=== PATIENT | male | born 1950 | race Caucasian/White ===

== ENCOUNTER → 2016-06-12 | Outpatient (CLI) | payer MEDICARE ==
[2016-06-12 15:07] LABS: ALT 28 U/L (21-72); AST 23 U/L (17-59); Blood Urea Nitrogen 19 mg/dL (9-20); Glucose 299 mg/dL (74-99); Non-African American GFR(MDRD) >60 (>60 ml/min/1.73 sqM)
[2016-06-12 16:13] LABS: Vitamin B12 330 pg/mL (239-931)
[2016-06-12 21:05] LABS: Hemoglobin A1C 11.2 % (4.2-6.1)
== END | disposition home or self-care (01) ==
LOC: LABWHC1 14:33
PROVIDERS: ATTEND Psychiatry & Neurology Neurology
DX: G93.41 Metabolic encephalopathy (principal); E11.9 Type 2 diabetes mellitus without complications
CPT/HCPCS: 36415; 82565; 82607; 82746; 82947; 83036; 84450; 84460; 84520

== ENCOUNTER → 2017-12-05 | Outpatient (CLI) | payer MEDICARE ==
[2017-12-05 15:11] LABS: HCT 42.3 % (39.0-53.0); MCH 27.4 pg (25.0-35.0); MCV 82.8 fL (80.0-100.0); Mean Platelet Volume 7.9; Platelet Count 169 k/uL (150-450); RDW 13.7 % (11.5-15.5); WBC 9.7 k/uL (3.8-10.6)
[2017-12-05 15:27] LABS: Potassium 4.4 mmol/L (3.5-5.1)
== END | disposition home or self-care (01) ==
LOC: LABPAT 14:45
PROVIDERS: ATTEND Internal Medicine Interventional Cardiology
DX: Z01.812 Encounter for preprocedural laboratory examination (principal); E78.1 Pure hyperglyceridemia; I10 Essential (primary) hypertension; I25.10 Atherosclerotic heart disease of native coronary artery without angina pectoris
CPT/HCPCS: 80051; 82565; 84520; 85027

== ENCOUNTER 2017-12-10 07:30 | Day surgery (SDC) | payer MEDICARE ==
[2017-12-10 07:05] VITALS: RESP 18
[~2017-12-10 07:30] MED LIST: ALPRAZolam 0.25 MG TAB PO PRN; ALPRAZolam 0.5 MG TAB PO PRN; ASPIRIN 325 MG TAB PO STA; ATORVASTATIN 80 MG TAB PO ONE; MIDAZOLAM 2 MG/2 ML VIAL ONE; NITROGLYCERIN SL TABS 0.4 MG TAB SUBLINGUAL PRN; SODIUM CHLORIDE 0.9% 1,000 ML in EMPTY BAG 1 BAG IV ONE
[2017-12-10] MEDS ORDERED: LIDOCAINE 1% INJ 10MG/ML (20 ML MDV) SQ ONE (07:42)
[2017-12-10] MEDS ORDERED: MIDAZOLAM 2 MG/2 ML VIAL IVP ONE (07:42)
[2017-12-10] MEDS ORDERED: BIVALIRUDIN BOLUS 250 MG/50 ML IV ONE (07:49)
[2017-12-10] MEDS ORDERED: BIVALIRUDIN 250 MG in SODIUM CHLORIDE 0.9% 50 ML IV ONE ×2 (07:49→08:17)
[2017-12-10] MEDS: NITROGLYCERIN 1000MCG/10ML SYRINGE INTRACORON ONE ×2 (07:50→08:22)
[2017-12-10] MEDS ORDERED: CLOPIDOGREL 75 MG TAB ONE (08:25)
[2017-12-10] MEDS ORDERED: traMADol 50 MG TAB PO PRN (08:29)
[2017-12-10] MEDS ORDERED: MAG HYDROX/AL HYDROX/SIMETH 30 ML CUP PO PRN (08:30)
[2017-12-10] MEDS ORDERED: NITROGLYCERIN SL TABS 0.4 MG TAB SUBLINGUAL PRN (08:30)
[2017-12-10] MEDS ORDERED: ATROPINE SULFATE 0.1 MG/ML 10ML SYRINGE IV PRN (08:30)
[2017-12-10] MEDS ORDERED: RX INFO: IV CONTRAST WAS GIVEN 1 EACH MISC MISCELLANE PRN (08:30)
[2017-12-10] MEDS ORDERED: ZOLPIDEM 5 MG TAB PO PRN (08:30)
[2017-12-10] MEDS ORDERED: SODIUM CHLORIDE 0.9% 1,000 ML IV SCH (08:30)
[2017-12-10] MEDS ORDERED: IOPAMIDOL-370 125ML BTL INJ ONE (08:31)
[2017-12-10] MEDS ORDERED: CLOPIDOGREL 75 MG TAB PO ONE (08:33)
[2017-12-10] MEDS ORDERED: ASPIRIN 325 MG TAB PO SCH (09:00)
[2017-12-10] MEDS ORDERED: ATENOLOL PO SCH (09:00)
[2017-12-10 09:33] LABS: Glucose,Whole Blood 169 mg/dL (75-99)
[2017-12-10] MEDS: PANTOPRAZOLE 40 MG TABLET PO PRN (09:36)
--- NOTE | 2017-12-10 09:40 | LTR ---
December 10, 2017 Re: Dane Shah Dear Dr. Rodriguez: Mr. Dane Shah underwent successful stenting of distal, mid and proximal RCA with good angiographic results and without any complication. I want to thank you for allowing me to participate in his care and please do not hesitate to call if you have any question or concern. Sincerely, MD ALLYN Duarte / JAYY: [phone] /
--- NOTE | 2017-12-10 10:04 | PTCA ---
PERCUTANEOUSTRANS CORORONARY ANGIOGRAPHY DATE OF SERVICE: December 10, 2017 PERFORMING PHYSICIAN: Obinna Eng MD, lever miller. PROCEDURE PERFORMED: 1. Successful stenting of the distal RCA using 2.75 x 15 mm Xience RENO with good angiographic results. 2. Successful stenting of the mid RCA using 2.75 x 18 mm Xience RENO with good angiographic results. 3. Successful stenting of the proximal RCA using 3.0 x 15 mm Xience RENO with good angiographic results. INDICATION: This is a pleasant 67-year-old gentleman with diabetes, hypertension, dyslipidemia, who was experiencing chest discomfort and underwent a heart catheterization few weeks ago and that showed severe disease involving the distal, mid, and proximal RCA. Maximized medical treatment was advised and the patient continues to have chest discomfort and in view of that, percutaneous coronary intervention was advised. APPROACH: Right common femoral artery. COMPLICATION: None. LEVEL OF SEDATION: Moderate sedation length of stay 46 minutes. PROCEDURE DESCRIPTION: After obtaining an informed consent, the patient was brought to cardiac computer lab assistant. The right common femoral artery was cannulated using micropuncture technique and the micropuncture wire passed easily then I placed a 6-Andorran sheath in the right common femoral artery. After that, Angiomax was initiated. After that I did engage the RCA using an NR guide. A Whisper wire was used to wire the right coronary artery. Then I did another under taina wire which was BMW wire. I did balloon angioplasty using 2.5 mm balloon for that distal, and proximal RCA before I deployed distally 2.75 x 15 mm Xience RENO where the stent was positioned under fluoroscopy guidance and deployed after I pulled the taina wire out. For the mid RCA, I did stent using 2.75 x 18 mm Xience RENO where the stent again was positioned under fluoroscopy guidance and deployed under its nominal pressure. Proximally, I deployed 3.0 x 15 mm Xience RENO as well. The last stent was also positioned under fluoroscopic guidance and deployed under 12 atmospheres for 20 seconds. The following angiogram showed good angiographic results and the procedure was completed without any complication. POSTPROCEDURE MANAGEMENT: 1. Maximize medical treatment. 2. Follow up with the patient. MMODL / IJN: [id number] /
[2017-12-10] MEDS: amLODIPine 10 MG TAB PO SCH (11:42)
[2017-12-10] MEDS: CYCLOBENZAPRINE 10 MG TAB PO SCH ×3 (11:43→21:46)
[2017-12-10 12:00] LABS: Glucose,Whole Blood 195 mg/dL (75-99)
[2017-12-10] MEDS: INSULIN ASPART 100 UNIT/ML 1 ML 10 ML VIAL SQ SCH (14:56)
[2017-12-10 15:36] VITALS: BMI 37.0
[2017-12-10 16:35] LABS: Glucose,Whole Blood 193 mg/dL (75-99)
[2017-12-10] MEDS ORDERED: INSULIN ASPART 100 UNIT/ML 1 ML 10 ML VIAL SQ SCH (17:30)
[2017-12-10 20:55] LABS: Glucose,Whole Blood 177 mg/dL (75-99)
[2017-12-10] MEDS ORDERED: INSULIN DETEMIR 100 UNIT/ML 10 ML VIAL SQ SCH (21:00)
[2017-12-10] MEDS ORDERED: traMADol 50 MG TAB PO STA (21:25)
[2017-12-11 06:23] LABS: Glucose,Whole Blood 127 mg/dL (75-99)
[2017-12-11 07:14] LABS: Basophils % (A) 1 %; Eosinophils # (A) 0.1 k/uL (0-0.7); Eosinophils % (A) 2 %; HCT 39.5 % (39.0-53.0); HGB 13.3 gm/dL (13.0-17.5); Lymphocytes # (A) 1.7 k/uL (1.0-4.8); Lymphocytes % (A) 28 %; MCH 27.6 pg (25.0-35.0); MCHC 33.5 g/dL (31.0-37.0); MCV 82.4 fL (80.0-100.0); Mean Platelet Volume 7.7; Monocytes # (A) 0.5 k/uL (0-1.0); Monocytes % (A) 9 %; Neutrophils # (A) 3.6 k/uL (1.3-7.7); Neutrophils % (A) 58 %; Platelet Count 112 k/uL (150-450); RDW 13.6 % (11.5-15.5); WBC 6.2 k/uL (3.8-10.6)
[2017-12-11] MEDS ORDERED: INSULIN ASPART 100 UNIT/ML 1 ML 10 ML VIAL SQ SCH (07:30)
[2017-12-11 07:33] LABS: Calcium 8.7 mg/dL (8.4-10.2); Potassium 3.8 mmol/L (3.5-5.1)
[2017-12-11] MEDS: amLODIPine 10 MG TAB PO SCH (07:55)
[2017-12-11] MEDS: CYCLOBENZAPRINE 10 MG TAB PO SCH (07:56)
[2017-12-11] MEDS: PANTOPRAZOLE 40 MG TABLET PO PRN (07:57)
[2017-12-11] MEDS ORDERED: ASPIRIN 325 MG TAB PO SCH (09:00)
[2017-12-11] MEDS ORDERED: CLOPIDOGREL 75 MG TAB PO SCH (09:00)
[2017-12-11 11:56] LABS: Glucose,Whole Blood 238 mg/dL (75-99)
[2017-12-11] MEDS: INSULIN ASPART 100 UNIT/ML 1 ML 10 ML VIAL SQ SCH (12:14)
[2017-12-11 12:36] VITALS: BP 136/66; PULSE 87; TEMP 98.6
--- NOTE | 2017-12-11 14:46 | DS ---
DISCHARGE SUMMARY ADMISSION DATE: December 10, 2017 DATE OF DISCHARGE: December 11, 2017 BRIEF HISTORY: This is a pleasant 67-year-old gentleman who was admitted to the hospital yesterday and underwent successful stenting of the distal, mid, and proximal RCA with good angiographic results and without any complication. The procedure was performed from the right groin. On follow up with him today, he is doing better. Chest pain free. The right groin is soft and nontender and without any bruises. The patient is going to be discharged home on dual anti-platelet therapy and I will follow up with the patient in a week in the office. MMODL / IJN: [id number] /
[2017-12-11] MEDS ORDERED: ATORVASTATIN 80 MG TAB PO SCH (21:00)
[2017-12-11 21:44] LABS: Hemoglobin A1C 7.7 % (4.0-6.0)
== END 2017-12-11 13:20 | disposition home or self-care (01) ==
LOC: CATHCVL 07:30 → 6SEL 08:35 → CATHCVL 12-11 13:20
PROVIDERS: ATTEND Internal Medicine Interventional Cardiology
DX: I25.10 Atherosclerotic heart disease of native coronary artery without angina pectoris (principal); I10 Essential (primary) hypertension; Z72.0 Tobacco use; E78.5 Hyperlipidemia, unspecified; E11.9 Type 2 diabetes mellitus without complications; Z79.84 Long term (current) use of oral hypoglycemic drugs; K31.9 Disease of stomach and duodenum, unspecified; Q23.1 Congenital insufficiency of aortic valve; Z79.899 Other long term (current) drug therapy; Z88.1 Allergy status to other antibiotic agents
CPT/HCPCS: 80048; 85025; 83036; C9600; C1769 ×4; C1760; C1887 ×2; C1725; C1894; C1874; J2250; J2001; J0583; Q9967

== ENCOUNTER 2017-12-31 06:37 | Day surgery (SDC) | payer MEDICARE ==
[2017-12-28 11:12] VITALS: BMI 36.8
[~2017-12-31 06:37] MED LIST changes: -ALPRAZolam 0.25 MG TAB PO PRN; -ALPRAZolam 0.5 MG TAB PO PRN; -ASPIRIN 325 MG TAB PO STA; -ATORVASTATIN 80 MG TAB PO ONE; +LACTATED RINGERS 1,000 ML IV SCH; +LIDOCAINE 1% 20 ML VIAL (10MG/ML) FOR IV START INTRADERMA PRN; -MIDAZOLAM 2 MG/2 ML VIAL ONE; -NITROGLYCERIN SL TABS 0.4 MG TAB SUBLINGUAL PRN; -SODIUM CHLORIDE 0.9% 1,000 ML in EMPTY BAG 1 BAG IV ONE
[2017-12-31 07:18] VITALS: TEMP 98.6
[2017-12-31 07:19] LABS: Glucose,Whole Blood 113 mg/dL (75-99)
[2017-12-31] MEDS ORDERED: LIDOCAINE 1% INJ 10MG/ML (20 ML MDV) ONE (07:51)
[2017-12-31] MEDS ORDERED: PROPOFOL 10 MG/ML 20 ML VIAL IV ONE (07:51)
[2017-12-31] MEDS ORDERED: fentaNYL (PF) 50 MCG/ML 2 ML AMP ONE (07:51)
--- NOTE | 2017-12-31 07:56 | P.GSHP ---
History of Present Illness H&P Date: 12/31/17 Chief Complaint: GERD 's is a 67-year-old male who presents today for EGD. Patient history of GERD. Past Medical History Past Medical History: COPD, CVA/TIA, Diabetes Mellitus, GERD/Reflux, Hypertension, Osteoarthritis (OA), Sleep Apnea/CPAP/BIPAP Additional Past Medical History / Comment(s): having "stomach problems",has cpap History of Any Multi-Drug Resistant Organisms: None Reported Past Surgical History: Cholecystectomy, Heart Catheterization With Stent, Hernia Repair, Orthopedic Surgery Additional Past Surgical History / Comment(s): heart stents x 3,carpal tunnel, right carotid, RIGHT HIP with pin, rt shoulder, umbilical hernia Past Anesthesia/Blood Transfusion Reactions: No Reported Reaction Date of Last Stent Placement:: 12-10-17 Smoking Status: Former smoker - Past Family History Mother Family Medical History: Cancer Medications and Allergies Home Medications Medication Instructions Recorded Confirmed Type Cyclobenzaprine [Flexeril] 10 mg PO TID #20 tablet 10/23/14 12/31/17 Rx Esomeprazole Magnesium 40 mg PO DAILY PRN 10/26/15 12/31/17 History amLODIPine BESYLATE [Amlodipine 10 mg PO QAM 10/26/15 12/31/17 History Besylate] traMADol HCL [Tramadol HCl] 50 mg PO TID PRN 10/26/15 12/31/17 History INSULIN LISPRO (HumaLOG) [humaLOG] 30 units SQ AC-BRKFST 12/04/17 12/31/17 History INSULIN LISPRO (HumaLOG) [humaLOG] 40 units SQ AC-LUNCH 12/04/17 12/31/17 History INSULIN LISPRO (HumaLOG) [humaLOG] 40 units SQ AC-SUPPER 12/04/17 12/31/17 History Insulin Glargine,Hum.rec.anlog 50 units SQ HS 12/04/17 12/31/17 History [[place] Solostar] Aspirin 325 mg PO DAILY #90 tab 12/11/17 12/31/17 Rx Atorvastatin [Lipitor] 80 mg PO HS #90 tab 12/11/17 12/31/17 Rx Clopidogrel [Plavix] 75 mg PO DAILY #90 tab 12/11/17 12/31/17 Rx Allergies Allergy/AdvReac Type Severity Reaction Status Date / Time neomycin Allergy Itching Verified 12/28/17 10:55 Surgical - Exam Vital Signs Temp Pulse Resp BP Pulse Ox 98.6 F 84 16 122/67 96 12/31/17 07:07 12/31/17 07:07 12/31/17 07:07 12/31/17 07:07 12/31/17 07:07 - General well developed, no distress - Eyes PERRL - ENT normal pinna - Neck no masses - Respiratory normal expansion - Cardiovascular Rhythm: regular - Abdomen Abdomen: soft, non tender Results - Labs Abnormal Lab Results - Last 24 Hours (Table) 12/31/17 Range/Units 07:16 POC Glucose (mg/dL) 113 H (75-99) mg/dL Assessment and Plan Assessment: GERD. We'll perform EGD.
--- NOTE | 2017-12-31 08:04 | P.OP ---
Date of Procedure: 12/31/17 Preoperative Diagnosis: GERD Postoperative Diagnosis: Antral gastritis Procedure(s) Performed: EGD Anesthesia: MAC Surgeon: Phill High Pathology: other (Antrum) Condition: stable Disposition: PACU Description of Procedure: The patient's placed on the endoscopy table in the lateral position. He received IV sedation. The gastroscope placed oropharynx and passed in the esophagus and stomach. The scope was then placed through the pylorus. The first and second portion of the duodenum appeared normal. The scope was then brought back the antrum and this appeared to be grossly inflamed. There was evidence of minute hemorrhagic gastritis. This area is biopsied. The scope was then retroflexed and remainder of the stomach appeared normal. There is no significant hiatal hernia. The GE junction was at 40 cm. The distal esophagus appeared normal. The proximal esophagus. Normal. Scope was withdrawn for patient.
[2017-12-31 08:13] VITALS: PULSE 59
[2017-12-31 08:28] VITALS: BP 130/70; RESP 16
== END 2017-12-31 09:02 ==
LOC: ORWHC2ENDO 06:37
PROVIDERS: ATTEND Surgery
DX: K31.9 Disease of stomach and duodenum, unspecified (principal); K29.70 Gastritis, unspecified, without bleeding; K21.9 Gastro-esophageal reflux disease without esophagitis; J44.9 Chronic obstructive pulmonary disease, unspecified; I25.10 Atherosclerotic heart disease of native coronary artery without angina pectoris; G47.33 Obstructive sleep apnea (adult) (pediatric); E11.9 Type 2 diabetes mellitus without complications; I10 Essential (primary) hypertension; M19.90 Unspecified osteoarthritis, unspecified site; Z95.5 Presence of coronary angioplasty implant and graft; Z99.89 Dependence on other enabling machines and devices; Z79.02 Long term (current) use of antithrombotics/antiplatelets; Z79.82 Long term (current) use of aspirin; Z79.4 Long term (current) use of insulin; Z79.899 Other long term (current) drug therapy; Z88.1 Allergy status to other antibiotic agents; Z90.49 Acquired absence of other specified parts of digestive tract; Z86.73 Personal history of transient ischemic attack (TIA), and cerebral infarction without residual deficits; Z87.891 Personal history of nicotine dependence
CPT/HCPCS: 88305; 43239; J2001; J3010; J2704

== ENCOUNTER → 2018-01-09 | Outpatient (CLI) | payer MEDICARE ==
--- NOTE | 2018-01-09 17:02 | CT ---
EXAMINATION TYPE: CT abdomen pelvis w con DATE OF EXAM: 01/09/2018 COMPARISON: 07/30/2009 HISTORY: Epigastric pain CT DLP: 1998 mGycm Automated exposure control for dose reduction was used. TECHNIQUE: Helical acquisition of images was performed from the lung bases through the pelvis. CONTRAST: Performed with Oral Contrast and with IV Contrast, patient injected with 100 mL of Isovue 300. FINDINGS: LUNG BASES: Left basilar pleural-parenchymal scarring is noted. There is left hemidiaphragm elevation present. LIVER/GB: There is mild intrahepatic biliary ductal dilatation and marked extrahepatic biliary ductal dilatation status post cholecystectomy. Intrahepatic biliary ductal dilatation is new from the prior 2009 however extrahepatic biliary ductal dilatation has only mildly progressed. PANCREAS: No significant abnormality is seen. No ductal dilatation is present. SPLEEN: Small splenule is seen adjacent to the [place] spleen. Cystic appearing splenic lesion appears present on the exam of 2009 and therefore likely benign. This is overall stable.. ADRENALS: No significant abnormality is seen. KIDNEYS: Lobulated contour of both kidneys is seen without focal lesion. No hydronephrosis.. Cystic a ppearing exophytic left lower pole and right upper pole renal lesions are seen that are subcentimeter . URINARY BLADDER: No significant abnormality is seen. Very tiny urachal remnant is incidentally noted . ADENOPATHY: There is an abnormal periaortic lymph node seen posterior to the left renal vein on serie s 3 image 38 measuring 1.3 cm in short axis. Possible lymph node is seen within the hepatorenal fossa as this contains macroscopic fat on series 3 image 33 measuring 1.4 cm in short axis. No other great er than 1 cm short axis lymph node is seen within the abdomen or pelvis. No other suspicious lymph no celestina are seen.. OSSEOUS STRUCTURES: Right femoral fracture fixation and heterotopic ossification are identified. Lef t acetabular sclerotic focus is indeterminant. Multilevel moderate degenerative changes of the spine are noted with grade 1 anterolisthesis of L4 on L5, likely on a degenerative basis. BOWEL: Small duodenal diverticulum is suspected near the pancreatic uncinate process. There is gaseo us distention of the colon with numerous colonic diverticula and no evidence of pericolonic fat stran ding. Moderate burden retained stool is seen throughout the bowel. Appendix is air-filled and within normal limits of size. OTHER: Moderate to severe atherosclerosis of the abdominal aorta and its branches are noted. There is diastases recti of the anterior abdominal wall musculature. IMPRESSION: ABNORMAL SOLITARY PERIAORTIC LYMPH NODE AND DENSITY IN THE HEPATORENAL FOSSA SUGGESTIVE OF AN ADDITIO NAL ABNORMAL-APPEARING LYMPH NODE. NO PRIMARY NEOPLASM IS IDENTIFIED. PET CT OR PERCUTANEOUS BIOPSY O F THE HEPATORENAL FOSSA LESION COULD BE CONSIDERED. 2. NEW INTRAHEPATIC BILIARY DUCTAL DILATATION IS SEEN WITH MARKED EXTRA HEPATIC BILIARY DUCTAL DILATA TION AND THEREFORE MRCP WITH CONTRAST COULD BE PERFORMED TO EVALUATE FOR CHOLEDOCHOLITHIASIS, STRICTU RE OR ABNORMAL ENHANCEMENT OF THE BILIARY TREE. NO FOCAL HEPATIC LESION IS SEEN.
== END | disposition home or self-care (01) ==
LOC: RADCTMAIN 13:42
PROVIDERS: ATTEND Surgery
DX: K83.8 Other specified diseases of biliary tract (principal); R10.13 Epigastric pain
CPT/HCPCS: 82565; 84520; 74177; 36415; Q9967

== ENCOUNTER → 2018-02-16 | Outpatient (CLI) | payer MEDICARE | LOC: RADMRIMAIN 07:13 | PROVIDERS: ATTEND Surgery | DX: Z53.9 Procedure and treatment not carried out, unspecified reason (principal) ==

== ENCOUNTER → 2018-05-23 | Outpatient (CLI) | payer MEDICARE ==
[2018-05-24 01:32] LABS: LDL Cholesterol,Calculated 70.8 mg/dL (0.0-131.0); VLDL Calculation 54.2 mg/dL (5.00-40.00)
== END | disposition home or self-care (01) ==
LOC: LABWHC1 15:00
PROVIDERS: ATTEND Nurse Practitioner Adult Health
DX: E78.5 Hyperlipidemia, unspecified (principal)
CPT/HCPCS: 36415; 80061

== ENCOUNTER → 2018-06-06 | Outpatient (CLI) | payer MEDICARE ==
--- NOTE | 2018-06-06 16:36 | CT ---
EXAMINATION TYPE: CT abdomen pelvis w con DATE OF EXAM: 06/06/2018 COMPARISON: 01/09/2018 and 07/30/2009 HISTORY: Abdominal pain. CT DLP: 2575.1 mGycm Automated exposure control for dose reduction was used. TECHNIQUE: Helical acquisition of images was performed from the lung bases through the pelvis. CONTRAST: Performed with Oral Contrast and with IV Contrast, patient injected with 80ml mL of Isovue 300. FINDINGS: LUNG BASES: There is chronic left hemidiaphragm elevation. LIVER/GB: The right lateral aspect of the liver is not included on the [id number] and its inferior margin secondary to patient body habitus. There remains mild intrahepatic biliary ductal dilatation and marked extrahepatic biliary ductal dilatation as seen on the prior of 01/09/2018. PANCREAS: No significant abnormality is seen. SPLEEN: There is a splenule seen adjacent to the [place] spleen and stable 2.2 cm hypoattenuated splen ic lesion stable from 2010 therefore likely benign. This could relate to a lymphangioma or hemangioma . ADRENALS: There is slight nodularity of the left adrenal gland measuring approximately 9 mm. This is not definitely seen on the exam of 2009 and therefore further characterization with MRI abdomen could be performed. KIDNEYS: Again there is a lobulated contour of both kidneys. No hydronephrosis is seen. Too small to accurately characterize renal lesions are present bilaterally although appeared as cysts on the prior . FREE AIR: No free air is visualized. ADENOPATHY: The periaortic lymph node present on the prior exam is less conspicuous on today's exami nation measuring only 9 mm in short axis on series 3 image 42 and previously measuring 1.3 cm. The he patorenal fossa lesion measures 1.4 cm, similar to the prior and is retrospectively present on the ex am of 07/30/2009 therefore favored to be benign. On coronal image 85 series 8 there is a thin possible communication with the kidney suggesting an exophytic cyst. REPRODUCTIVE ORGANS: No significant abnormality is seen URINARY BLADDER: Very small urachal remnant is again seen right para midline on series 3 image 89. OSSEOUS STRUCTURES: There is grade 1 anterolisthesis of L4 on L5 and a posterior projecting osteophy te from L3-L4 creating moderate spinal canal stenosis. Mild to moderate multilevel degenerative lemus es of the remainder the spine. Punctate probable bone island of L3 is unchanged from the prior. Left acetabular sclerotic focus is stable. Right femoral fixation marianna is again noted. BOWEL: There are numerous colonic diverticula without pericolonic fat stranding. There is redundancy of the sigmoid colon. No dilated large or small bowel is seen although the entirety of the right hem icolon is not imaged given the patient's body habitus and cannot be evaluated. Duodenal diverticulum is less conspicuous. OTHER: Extensive atherosclerosis is seen of the abdominal aorta and its branches. Wide neck periumbil ical hernia is present. This is fat-containing. IMPRESSION: 1. Decrease in size of the previously seen para-aortic solitary enlarged lymph node. 2. A thin stalk appears to be present on coronal images connecting the hepatorenal fossa lesion to th e kidney representing an exophytic benign cyst stable back to thousand 12. 3. There is redemonstration of intrahepatic biliary ductal dilatation and extensive extrahepatic bili clarita ductal dilatation that could again be further evaluated with MRCP. Correlate with serum bilirubin . 4. Subcentimeter left adrenal gland nodule does not appear to be present on the exam of 2009 and coul d be further characterized with MR abdomen adrenal mass protocol.
== END | disposition home or self-care (01) ==
LOC: RADCTMAIN 13:34
PROVIDERS: ATTEND Surgery
DX: K83.8 Other specified diseases of biliary tract (principal); E27.8 Other specified disorders of adrenal gland; N28.9 Disorder of kidney and ureter, unspecified
CPT/HCPCS: 82565; 84520; 74177; 36415; Q9967

== ENCOUNTER 2018-10-25 09:57 | Inpatient (IN) | payer MEDICARE ==
[2018-10-25] MEDS ORDERED: SODIUM CHLORIDE 0.9% 500 ML 500 ML IV STA (10:31)
[2018-10-25] MEDS ORDERED: SODIUM CHLORIDE 0.9% 1,000 ML IV STA (10:31)
[2018-10-25] MEDS ORDERED: ONDANSETRON 4 MG/2 ML VIAL IVP STA (10:31)
[2018-10-25] MEDS ORDERED: KETOROLAC 30 MG/ML 1 ML VIAL IVP STA (10:31)
[2018-10-25] MEDS ORDERED: MORPHINE SULFATE 4 MG/ML SYRINGE IV STA (10:31)
[2018-10-25 11:14] LABS: Basophils % (A) 1 %; Eosinophils # (A) 0.2 k/uL (0-0.7); Eosinophils % (A) 3 %; HCT 32.8 % (39.0-53.0); HGB 10.7 gm/dL (13.0-17.5); Lymphocytes # (A) 0.6 k/uL (1.0-4.8); Lymphocytes % (A) 9 %; MCH 26.8 pg (25.0-35.0); MCHC 32.7 g/dL (31.0-37.0); MCV 81.8 fL (80.0-100.0); Mean Platelet Volume 7.8; Monocytes # (A) 0.8 k/uL (0-1.0); Monocytes % (A) 10 %; Neutrophils # (A) 5.5 k/uL (1.3-7.7); Neutrophils % (A) 75 %; Platelet Count 135 k/uL (150-450); RBC 4.01 m/uL (4.30-5.90); RDW 14.8 % (11.5-15.5); WBC 7.3 k/uL (3.8-10.6)
--- NOTE | 2018-10-25 11:14 | ED ---
Abdominal Pain HPI - General Chief Complaint: Abdominal Pain Stated Complaint: Kidney stone Time Seen by Provider: 10/25/18 10:02 Source: patient, RN notes reviewed Mode of arrival: ambulatory Limitations: no limitations - History of Present Illness Initial Comments: 68-year-old male presents emergency Department chief complaint of left flank pain. Patient states started 4-5 days ago states is progressively worsening. He does admit to some diarrhea no nausea vomiting. Patient states he believes it's another kidney stone which is long history of. Patient denies any history of renal failure no kidney disease otherwise. Patient denies fever, chills, chest pain, shortness breath. Patient states nothing really makes the pain feel better he does admit that hurts to press on his abdomen. Patient denies any relief with [id number] medications. - Related Data Home Medications Medication Instructions Recorded Confirmed Esomeprazole Magnesium 40 mg PO DAILY PRN 10/26/15 12/31/17 amLODIPine BESYLATE [Amlodipine 10 mg PO QAM 10/26/15 12/31/17 Besylate] traMADol HCL [Tramadol HCl] 50 mg PO TID PRN 10/26/15 12/31/17 INSULIN LISPRO (HumaLOG) [humaLOG] 30 units SQ AC-BRKFST 12/04/17 12/31/17 INSULIN LISPRO (HumaLOG) [humaLOG] 40 units SQ AC-LUNCH 12/04/17 12/31/17 INSULIN LISPRO (HumaLOG) [humaLOG] 40 units SQ AC-SUPPER 12/04/17 12/31/17 Insulin Glargine,Hum.rec.anlog 50 units SQ HS 12/04/17 12/31/17 [Lita Ayon] Previous Rx's Medication Instructions Recorded Cyclobenzaprine [Flexeril] 10 mg PO TID #20 tablet 10/23/14 Aspirin 325 mg PO DAILY #90 tab 12/11/17 Atorvastatin [Lipitor] 80 mg PO HS #90 tab 12/11/17 Clopidogrel [Plavix] 75 mg PO DAILY #90 tab 12/11/17 Omeprazole 40 mg PO DAILY #60 capsule. 12/31/17 Allergies Allergy/AdvReac Type Severity Reaction Status Date / Time neomycin Allergy Itching Verified 10/25/18 10:03 Review of Systems ROS Statement: Those systems with pertinent positive or pertinent negative responses have been documented in the HPI. ROS Other: All systems not noted in ROS Statement are negative. Past Medical History Past Medical History: COPD, CVA/TIA, Diabetes Mellitus, GERD/Reflux, Hypertension, Osteoarthritis (OA), Sleep Apnea/CPAP/BIPAP Additional Past Medical History / Comment(s): having "stomach problems",has cpap History of Any Multi-Drug Resistant Organisms: None Reported Past Surgical History: Cholecystectomy, Heart Catheterization With Stent, Hernia Repair, Orthopedic Surgery Additional Past Surgical History / Comment(s): heart stents x 3,carpal tunnel, right carotid, RIGHT HIP with pin, rt shoulder, umbilical hernia Past Anesthesia/Blood Transfusion Reactions: No Reported Reaction Date of Last Stent Placement:: 12-10-17 Past Psychological History: Anxiety, Depression Smoking Status: Former smoker Past Alcohol Use History: None Reported Past Drug Use History: None Reported - Past Family History Mother Family Medical History: Cancer General Exam Limitations: no limitations General appearance: alert, in no apparent distress Head exam: Present: atraumatic, normocephalic, normal inspection Eye exam: Present: normal appearance, PERRL, EOMI. Absent: scleral icterus, conjunctival injection, periorbital swelling ENT exam: Present: normal exam, normal oropharynx, mucous membranes moist Neck exam: Present: normal inspection. Absent: tenderness, meningismus, lymphadenopathy Respiratory exam: Present: normal lung sounds bilaterally. Absent: respiratory distress, wheezes, rales, rhonchi, stridor Cardiovascular Exam: Present: regular rate, normal rhythm, normal heart sounds. Absent: systolic murmur, diastolic murmur, rubs, gallop, clicks GI/Abdominal exam: Present: soft, tenderness (Mild to moderate left-sided), normal bowel sounds. Absent: distended, guarding, rebound, rigid Back exam: Present: CVA tenderness (L). Absent: CVA tenderness (R) Neurological exam: Present: alert, oriented X3, CN II-XII intact Skin exam: Present: warm, dry, intact, normal color. Absent: rash Course Vital Signs 10/25/18 10/25/18 10/25/18 10:02 12:06 12:45 Temperature 97.4 F L Pulse Rate 69 71 69 Respiratory 16 18 17 Rate Blood Pressure 192/92 178/81 158/78 O2 Sat by Pulse 93 L 92 L 93 L Oximetry Medical Decision Making - Medical Decision Making 68-year-old male presents emergency from for left-sided abdominal pain. Patient had labs CT urinalysis. Patient found to be acute renal failure. Patient has no obvious cause for pain at this time patient will be admitted for nephrology evaluation. - Lab Data Result diagrams: 10/25/18 10:52 10/25/18 10:52 Lab Results 10/25/18 10/25/18 10/25/18 Range/Units 10:52 10:52 10:52 WBC 7.3 (3.8-10.6) k/uL RBC 4.01 L (4.30-5.90) m/uL Hgb 10.7 L (13.0-17.5) gm/dL Hct 32.8 L (39.0-53.0) % MCV 81.8 (80.0-100.0) fL MCH 26.8 (25.0-35.0) pg MCHC 32.7 (31.0-37.0) g/dL RDW 14.8 (11.5-15.5) % Plt Count 135 L (150-450) k/uL Neutrophils % 75 % Lymphocytes % 9 % Monocytes % 10 % Eosinophils % 3 % Basophils % 1 % Neutrophils # 5.5 (1.3-7.7) k/uL Lymphocytes # 0.6 L (1.0-4.8) k/uL Monocytes # 0.8 (0-1.0) k/uL Eosinophils # 0.2 (0-0.7) k/uL Basophils # 0.0 (0-0.2) k/uL Sodium 139 (137-145) mmol/L Potassium 5.2 H (3.5-5.1) mmol/L Chloride 108 H (98-107) mmol/L Carbon Dioxide 21 L (22-30) mmol/L Anion Gap 10 mmol/L BUN 56 H (9-20) mg/dL Creatinine 5.92 H (0.66-1.25) mg/dL Est GFR (CKD-EPI)AfAm 10 (>60 ml/min/1.73 sqM) Est GFR (CKD-EPI)NonAf 9 (>60 ml/min/1.73 sqM) Glucose 152 H (74-99) mg/dL Plasma Lactic Acid Efrain 0.7 (0.7-2.0) mmol/L Calcium 8.5 (8.4-10.2) mg/dL Total Bilirubin 0.5 (0.2-1.3) mg/dL AST 19 (17-59) U/L ALT 22 (21-72) U/L Alkaline Phosphatase 96 (38-126) U/L Total Protein 6.5 (6.3-8.2) g/dL Albumin 4.0 (3.5-5.0) g/dL Lipase 134 (23-300) U/L Urine Color Urine Appearance (Clear) Urine pH (5.0-8.0) Ur Specific [place] (1.001-1.035) Urine Protein (Negative) Urine Glucose (UA) (Negative) Urine Ketones (Negative) Urine Blood (Negative) Urine Nitrite (Negative) Urine Bilirubin (Negative) Urine Urobilinogen (<2.0) mg/dL Ur Leukocyte Esterase (Negative) Urine RBC (0-5) /hpf Urine WBC (0-5) /hpf Urine Mucus (None) /hpf 10/25/18 Range/Units 14:20 WBC (3.8-10.6) k/uL RBC (4.30-5.90) m/uL Hgb (13.0-17.5) gm/dL Hct (39.0-53.0) % MCV (80.0-100.0) fL MCH (25.0-35.0) pg MCHC (31.0-37.0) g/dL RDW (11.5-15.5) % Plt Count (150-450) k/uL Neutrophils % % Lymphocytes % % Monocytes % % Eosinophils % % Basophils % % Neutrophils # (1.3-7.7) k/uL Lymphocytes # (1.0-4.8) k/uL Monocytes # (0-1.0) k/uL Eosinophils # (0-0.7) k/uL Basophils # (0-0.2) k/uL Sodium (137-145) mmol/L Potassium (3.5-5.1) mmol/L Chloride (98-107) mmol/L Carbon Dioxide (22-30) mmol/L Anion Gap mmol/L BUN (9-20) mg/dL Creatinine (0.66-1.25) mg/dL Est GFR (CKD-EPI)AfAm (>60 ml/min/1.73 sqM) Est GFR (CKD-EPI)NonAf (>60 ml/min/1.73 sqM) Glucose (74-99) mg/dL Plasma Lactic Acid Efrain (0.7-2.0) mmol/L Calcium (8.4-10.2) mg/dL Total Bilirubin (0.2-1.3) mg/dL AST (17-59) U/L ALT (21-72) U/L Alkaline Phosphatase (38-126) U/L Total Protein (6.3-8.2) g/dL Albumin (3.5-5.0) g/dL Lipase (23-300) U/L Urine Color Light Yellow Urine Appearance Clear (Clear) Urine pH 6.0 (5.0-8.0) Ur Specific [place] 1.013 (1.001-1.035) Urine Protein 1+ H (Negative) Urine Glucose (UA) 1+ H (Negative) Urine Ketones Negative (Negative) Urine Blood Trace H (Negative) Urine Nitrite Negative (Negative) Urine Bilirubin Negative (Negative) Urine Urobilinogen <2.0 (<2.0) mg/dL Ur Leukocyte Esterase Negative (Negative) Urine RBC 1 (0-5) /hpf Urine WBC <1 (0-5) /hpf Urine Mucus Rare H (None) /hpf Disposition Clinical Impression: Acute renal failure, Abdominal pain Disposition: ADMITTED IP TO THIS [facility] Condition: Fair Referrals: Elena Rodriguez DO [Primary Care Provider] - 1-2 days
[2018-10-25 11:21] LABS: Calcium 8.5 mg/dL (8.4-10.2); Potassium 5.2 mmol/L (3.5-5.1); Total Bilirubin 0.5 mg/dL (0.2-1.3); Total Protein 6.5 g/dL (6.3-8.2)
--- NOTE | 2018-10-25 11:39 | XR ---
EXAMINATION TYPE: XR KUB DATE OF EXAM: 10/25/2018 11:18 AM CLINICAL HISTORY: Abdominal pain. History of nephrolithiasis. TECHNIQUE: Single upright image of the abdomen is obtained. COMPARISON: 06/06/2018 CT. X-ray dated 07/26/2009 FINDINGS: No pneumoperitoneum is seen. Centralized loops of prominent small bowel measuring up to 4.0 cm, mildly dilated. Moderate degree colonic fecal stasis is noted. Moderate degenerative changes of the spine. Left hemidiaphragm elevation is chronic. Cholecystectomy clips are noted. Right hip arthro plasty is seen. No calculi are seen overlying the renal shadows however these are partially obscured by overlying bowel. IMPRESSION: 1. Centralized loops of mildly dilated small bowel suggest small bowel ileus.
[2018-10-25] MEDS ORDERED: MORPHINE SULFATE 4 MG/ML SYRINGE IVP STA (11:51)
--- NOTE | 2018-10-25 14:18 | CT ---
EXAMINATION TYPE: CT abdomen pelvis wo con DATE OF EXAM: 10/25/2018 HISTORY: Left flank pain. CT DLP: 1216.4 mGycm. Automated Exposure Control for Dose Reduction was Utilized. TECHNIQUE: CT scan of the abdomen and pelvis is performed without oral or IV contrast. COMPARISON: CT abdomen and pelvis June 06, 2018. FINDINGS: Within the limitations of a non-contrast study, the following observations are made. Exam is suboptimal due to patient's large body habitus and motion artifact. LUNG BASES: Small bilateral pleural effusions now present. There is mediastinal shift identified. The re is coronary artery calcification seen. There is associated compressive atelectasis right lung base . Chronic elevated left hemidiaphragm noted. LIVER/GB: Cholecystectomy clips are redemonstrated. Stable mild to moderate extrahepatic and central intrahepatic biliary dilatation felt present. PANCREAS: No significant abnormality is seen. SPLEEN: Stable splenule in splenic hilum axial image 18 anteriorly. Hypodense lesion posteriorly less well seen on current study likely present axial image 20 and stable in size. ADRENALS: No significant abnormality is seen. KIDNEYS: Few simple appearing cysts or cystic lesions upper pole of the right kidney. Cortical thinni ng both kidneys consistent with product of chronic medical renal disease. A 2 mm nonobstructing calcu garry lower pole level right kidney coronal image 86. BOWEL: Diverticula in the left and sigmoid colon. No CT evidence for acute diverticulitis. No surroun ding inflammatory change. GENITAL ORGANS: No gross abnormality seen. LYMPH NODES: No greater than 1cm abdominal or pelvic lymph nodes are appreciated. OSSEOUS STRUCTURES: Metallic hardware for right proximal femur surgery partially imaged. Prominent mu ltilevel spurring in the thoracic spine extending into upper lumbar spine. Facet arthropathy lower jamie mbar levels. OTHER: Mild/moderate calcified plaque of the aorta extends into branch vessels. Persistent ventral wa ll hernia felt present axial image 67 near umbilicus. Impression: Suboptimal study, no new or acute findings seen to account for patient's symptoms of new left-sided flank and abdominal pain.
[2018-10-25 14:33] LABS: Appearance,Urine Clear (Clear); Bilirubin,Urine Negative (Negative); Blood,Urine Trace (Negative); Color,Urine Light Yellow; Glucose,Urine (UA) 1+ (Negative); Ketones,Urine Negative (Negative); Leukocyte Esterase,Urine Negative (Negative); Mucus,Urine Rare /hpf; Nitrite,Urine Negative (Negative); Protein,Urine 1+ (Negative); RBC,Urine 1 /hpf (0-5); Specific Gravity,Urine 1.013 (1.001-1.035); Urobilinogen,Urine <2.0 mg/dL (<2.0)
[2018-10-25] MEDS ORDERED: MORPHINE SULFATE 4 MG/ML SYRINGE IV PRN (14:50)
[2018-10-25] MEDS ORDERED: ONDANSETRON 4 MG/2 ML VIAL IVP PRN (14:50)
[2018-10-25] MEDS ORDERED: SODIUM CHLORIDE 0.9% 1,000 ML IV SCH (15:00)
[2018-10-25 16:50] LABS: Glucose,Whole Blood 158 mg/dL (75-99)
[2018-10-25 20:14] LABS: INR 1.3 (<1.2)
--- NOTE | 2018-10-25 20:29 | CT ---
EXAMINATION TYPE: CT brain wo con DATE OF EXAM: 10/25/2018 COMPARISON: 01/12/2016 HISTORY: ams CT DLP: 1134.4 mGycm Automated exposure control for dose reduction was used. FINDINGS: There is mild cerebral cortical atrophy. There is no mass effect nor midline shift. There is no sign of intracranial hemorrhage. The calvarium is intact. There is frontal hyperostosis. There is mucosal thickening in the left maxillary sinus. There is mild osteosclerosis of the wall of the left maxillar y sinus. IMPRESSION: NO ACUTE INTRACRANIAL ABNORMALITY. MILD ATROPHY. CHRONIC LEFT MAXILLARY SINUSITIS. NOTE SIGNIFICANT C HANGE COMPARED TO OLD EXAM.
--- NOTE | 2018-10-25 20:30 | XR ---
EXAMINATION TYPE: XR chest 1V portable DATE OF EXAM: 10/25/2018 COMPARISON: NONE HISTORY: Short of breath. TECHNIQUE: Single frontal view of the chest is obtained. FINDINGS: Heart is enlarged. There is some pulmonary vascular congestion. Thoracic aorta is atheroma tous. There is probably left pleural effusion. IMPRESSION: Exam limited due to patient's size. There is probably mild congestive heart failure.
[2018-10-25 21:08] LABS: Glucose,Whole Blood 133 mg/dL (75-99)
[2018-10-25 21:34] LABS: Magnesium 1.6 mg/dL (1.6-2.3); Phosphorus 5.7 mg/dL (2.5-4.5)
[2018-10-25] MEDS: INSULIN ASPART (NovoLOG) 100 UNIT/ML VIAL SQ SCH (21:41)
[2018-10-25] MEDS: hydrALAZINE HCL 20 MG/ML 1 ML VIAL IVP PRN (21:48)
[2018-10-25 21:49] LABS: Glucose,Whole Blood 133 mg/dL (75-99)
[2018-10-25] MEDS: IPRATROPIUM-ALBUTEROL 3 ML NEB INHALATION PRN (22:01)
[2018-10-25 22:09] LABS: ABG Base Excess -4.9 mmol/L; ABG HCO3 23 mmol/L (21-25); ABG Oxygen Saturation 91.3 % (94-97); ABG PCO2 53 mmHg (35-45); ABG PH 7.24 (7.35-7.45); ABG PO2 66 mmHg (83-108); ABG TCO2 24 mmol/L (19-24); Allen Test Performed? Yes
--- NOTE | 2018-10-25 23:01 | HP ---
HISTORY AND PHYSICAL DATE OF SERVICE: 10/25/2018 I am covering for Dr. Chowdary. CHIEF COMPLAINTS: Abdominal pain, weakness and change in mental status. HISTORY OF PRESENT ILLNESS: This 68-year-old gentleman with a past medical history of multiple medical problems including COPD, CVA, TIA, diabetes, GERD, hypertension, DJD, history of sleep apnea, CAD stent, anxiety, depression, being followed by Dr. Elena Rodriguez in the outpatient setting, also had multiple kidney stones. The reports that the patient is complaining of back pain and left-sided abdominal pain for the last week. The patient was hoping to pass a kidney stone according to him. The patient became proximally lethargic and the pain was worsening and the patient came to [facility] and was admitted for further evaluation treatment. Creatinine was found to be 5.92, indicating severe renal failure. The most recent creatinine available in the computer is on 06/06/2018, which is 1.45. Currently the patient is stuporous, drowsy, unable to give coherent history. Most of the history is taken from my discussion with staff, review of the chart and as well as discussion with the at the bedside. The patient also had some myoclonic movements and as well as some change in mental status also as mentioned earlier. There is no history of trauma. PAST MEDICAL HISTORY: History of COPD, CVA, diabetes, GERD, hypertension, DJD, history of sleep apnea, history of CAD stent. MEDICATIONS: Home medications are: 1. Ultram 50 mg t.i.d. p.r.n. 2. Ranitidine 150 mg p.o. b.i.d. 3. [place] 5 mg q.6h p.r.n. 4. Lipitor 80 mg q.h.s. 5. Omeprazole 40 mg p.o. daily. 6. Metformin 1000 mg p.o. b.i.d. 7. Apresoline 25 mg p.o. daily. 8. HydroDIURIL 25 mg. 9. Catapres 0.1 daily. 10.Neurontin 300 mg p.o. b.i.d. 11.Gabapentin 600 mg p.o. b.i.d. 12.Plavix 75 mg p.o. daily. 13.Celexa 40 mg p.o. daily. 14.Norvasc 10 mg q.a.m. ALLERGIES: NEOMYCIN. FAMILY HISTORY: History of cancer per chart. SOCIAL HISTORY: Previous history of smoking. No history of current smoking or alcohol intake. REVIEW OF SYSTEMS: Could not be taken because of change in mental status. PHYSICAL EXAM: Patient is stuporous. Pulse 69. Blood pressure 167/79, respiration 16, temperature 97.9, pulse ox 97% on 2 L. HEENT: Conjunctivae normal. Oral mucosa dry. NECK is no jugular venous distention. No carotid bruit. No lymph node enlargement. CARDIOVASCULAR: S1, S2 muffled. No S3, no S4. RESPIRATORY: Breath sounds diminished in the bases. A few scattered rhonchi. No crackles. ABDOMEN: Soft, obese, nontender. No mass palpable. No guarding. No rigidity. LEGS no edema. No swelling. NERVOUS SYSTEM: Patient is diffusely weak. Patient has some myoclonic jerks. Patient unable to cooperate with full exam. SKIN: No ulcer. No rash. No bleeding. JOINTS: No active deforming arthropathy. LYMPHATICS: No lymph nodes palpable in the neck, axilla or groin. LABS: WBC 7.3, hemoglobin 10.7, sodium 139, potassium 5.2. Creatinine 5.92, BUN is 56, and Accu-Cheks 152. UA noted. ASSESSMENT: 1. Acute renal failure possibly acute tubular necrosis with prerenal factors. 2. Change in mental status acute metabolic encephalopathy secondary to renal failure. 3. Hyperkalemia mild. 4. Anemia, normocytic anemia of chronic disease. 5. Thrombocytopenia. 6. History of nephrolithiasis, multiple episodes. 7. Chronic obstructive pulmonary disease. 8. Cerebrovascular accident/transient ischemic attack. 9. Diabetes mellitus type 2. 10.Gastroesophageal reflux disease. 11.Hypertension. 12.History of degenerative joint disease. 13.History of sleep apnea. 14.History of coronary artery disease/stent. 15.History of anxiety, depression. 16.Remote history of nicotine dependence. 17.Obesity. Body mass index 39.1. RECOMMENDATIONS AND DISCUSSION: In this 68-year-old gentleman who presented with multiple complex medical issues, we will monitor the patient closely. Continue the current medications, management and symptomatic treatment. We will monitor the patient on telemetry and I would also recommend cautious IV fluids. Avoid nephrotoxic medications. Nephrology consultation. Neuro checks. I would also recommend a CT scan of the brain without any contrast. Overall prognosis extremely guarded because of multiple complex medical issues and we will continue to monitor. The patient appears to be aneuric at this time. A copy of this dictation being forwarded to Dr. Dane Chowdary who is following the patient outpatient. MMRUBINAL / VALEN: [id number] /
[2018-10-26] MEDS: hydrALAZINE HCL 20 MG/ML 1 ML VIAL IVP PRN ×2 (02:15→08:04)
--- NOTE | 2018-10-26 02:30 | XR ---
EXAM: XR Chest, 1 View CLINICAL HISTORY: ITS.REASON XR Reason: respiratory distress TECHNIQUE: Frontal view of the chest. COMPARISON: 10/25/2018 IMPRESSION: Severe loculated left pleural effusion with compressive atelectasis. Mild pulmonary edema. Cardiomegaly.
[2018-10-26] MEDS ORDERED: FUROSEMIDE 10 MG/ML 10 ML VIAL IV STA (03:47)
[2018-10-26 04:09] LABS: Amphetamine Screen,Urine Not Detected (NotDetected); Barbiturate Screen,Urine Not Detected (NotDetected); Benzodiazepines Screen,Urine Not Detected (NotDetected); Cocaine Screen,Urine Not Detected (NotDetected); Methadone Screen, Urine Not Detected (NotDetected); Opiate Screen,Urine Detected (NotDetected); Oxycodone Screen, Urine Not Detected (NotDetected); Phencyclidine Screen,Urine Not Detected (NotDetected); Tricyclic Antidepressant,Urine Not Detected (NotDetected); Urn Cannabinoid Scrn Not Detected (NotDetected)
[2018-10-26 06:03] LABS: Glucose,Whole Blood 155 mg/dL (75-99)
[2018-10-26] MEDS: INSULIN ASPART (NovoLOG) 100 UNIT/ML VIAL SQ SCH ×4 (06:11→21:14)
[2018-10-26] MEDS: PANTOPRAZOLE 40 MG TABLET PO SCH (07:00)
[2018-10-26 07:38] LABS: Basophils % (A) 0 %; Eosinophils # (A) 0.1 k/uL (0-0.7); Eosinophils % (A) 1 %; HCT 31.8 % (39.0-53.0); HGB 10.1 gm/dL (13.0-17.5); Lymphocytes # (A) 0.4 k/uL (1.0-4.8); Lymphocytes % (A) 4 %; MCH 27.1 pg (25.0-35.0); MCHC 31.9 g/dL (31.0-37.0); Mean Platelet Volume 7.9; Monocytes # (A) 0.9 k/uL (0-1.0); Monocytes % (A) 9 %; Neutrophils # (A) 8.9 k/uL (1.3-7.7); Neutrophils % (A) 85 %; Platelet Count 127 k/uL (150-450); RBC 3.74 m/uL (4.30-5.90); RDW 15.7 % (11.5-15.5); WBC 10.5 k/uL (3.8-10.6)
[2018-10-26 07:50] LABS: Calcium 8.2 mg/dL (8.4-10.2); Potassium 5.6 mmol/L (3.5-5.1)
[2018-10-26] MEDS: ACETAMINOPHEN TAB 325 MG TAB PO PRN (08:03)
[2018-10-26] MEDS: amLODIPine 10 MG TAB PO SCH (08:03)
[2018-10-26] MEDS: hydrALAZINE HCL 25 MG TAB PO SCH (08:03)
[2018-10-26] MEDS: CLOPIDOGREL 75 MG TAB PO SCH (08:03)
[2018-10-26] MEDS: cloNIDine HCL 0.1 MG TAB PO SCH (08:03)
[2018-10-26] MEDS: IPRATROPIUM-ALBUTEROL 3 ML NEB INHALATION PRN ×4 (08:32→20:30)
--- NOTE | 2018-10-26 09:53 | P.NPCON ---
History of Present Illness - Reason for Consult Consult date: 10/26/18 acute renal failure - Chief Complaint Acute kidney injury - History of Present Illness This is a 68-year-old male seen in consultation because of acute kidney injury and chronic kidney disease He came in because of approximately 5 days off flank pain on the left. He has had kidney stones the past. He also had some diarrhea about 3 times a day. No history of GI bleed. No dysuria frequency, hematuria. No history suggestive of any prostate problems. No nausea vomiting fever. Has mild cough and stable shortness of breath. He is known with obstructive sleep apnea and is using a BiPAP at home Past medical history otherwise significant for COPD obstructive sleep apnea, previous history of CVA. Diabetes and GERD. Is also known with coronary artery disease with a stent and depression. Patient does admit to taking Advil may be 2-3 at the most a day for the last few days. His previous creatinines are 1.43 on 06/06/2018, 1.43 on 01/09/2018 and 1.05 on 12/11/2017. Urinalysis shows 1+ protein trace blood RBCs and WBC less than 1 Past Medical History Past Medical History: COPD, CVA/TIA, Diabetes Mellitus, GERD/Reflux, Hypertension, Osteoarthritis (OA), Sleep Apnea/CPAP/BIPAP Additional Past Medical History / Comment(s): having "stomach problems",has cpap History of Any Multi-Drug Resistant Organisms: None Reported Past Surgical History: Cholecystectomy, Heart Catheterization With Stent, Hernia Repair, Orthopedic Surgery Additional Past Surgical History / Comment(s): heart stents x 3,carpal tunnel, right carotid, RIGHT HIP with pin, rt shoulder, umbilical hernia Past Anesthesia/Blood Transfusion Reactions: No Reported Reaction Date of Last Stent Placement:: 12-10-17 Past Psychological History: Anxiety, Depression Smoking Status: Former smoker Past Alcohol Use History: None Reported Additional Past Alcohol Use History / Comment(s): STARTED SMOKING AT AGE 15 QUIT SMOKING AT AGE 35 SMOKED 2-3 PPD Past Drug Use History: None Reported - Past Family History Mother Family Medical History: Cancer Medications and Allergies Home Medications Medication Instructions Recorded Confirmed Type amLODIPine BESYLATE [Amlodipine 10 mg PO QAM 10/26/15 10/25/18 History Besylate] traMADol HCL [Tramadol HCl] 50 mg PO TID PRN 10/26/15 10/25/18 History Atorvastatin [Lipitor] 80 mg PO HS #90 tab 12/11/17 10/25/18 Rx Clopidogrel [Plavix] 75 mg PO DAILY #90 tab 12/11/17 10/25/18 Rx Omeprazole 40 mg PO DAILY #60 capsule.dr 12/31/17 10/25/18 Rx Citalopram Hydrobromide 40 mg PO DAILY 10/25/18 10/25/18 History [Citalopram HBr] Gabapentin 600 mg PO BID 10/25/18 10/25/18 History Gabapentin [Neurontin] 300 mg PO BID 10/25/18 10/25/18 History HYDROcodone/APAP 5-325MG [[place] 1 tab PO Q6HR PRN 10/25/18 10/25/18 History 5-325] Hydrochlorothiazide [Hydrodiuril] 25 mg PO DAILY 10/25/18 10/25/18 History Ranitidine HCl 150 mg PO BID 10/25/18 10/25/18 History cloNIDine HCL [Catapres] 0.1 mg PO DAILY 10/25/18 10/25/18 History hydrALAZINE HCL [Apresoline] 25 mg PO DAILY 10/25/18 10/25/18 History metFORMIN HCL 1,000 mg PO BID 10/25/18 10/25/18 History Allergies Allergy/AdvReac Type Severity Reaction Status Date / Time neomycin Allergy Itching Verified 10/25/18 17:54 Physical Exam Vitals: Vital Signs Temp Pulse Pulse Resp BP BP Pulse Ox 10/26/18 08:45 92 10/26/18 08:32 96 10/26/18 08:00 97.6 F 99 20 160/107 91 L 10/26/18 05:49 144/82 10/26/18 04:00 98.9 F 81 20 168/78 94 L 10/26/18 00:00 98.2 F 72 20 157/88 93 L 10/25/18 22:27 94 L 10/25/18 22:20 76 10/25/18 22:02 76 10/25/18 20:00 18 10/25/18 19:29 97.9 F 69 16 167/79 97 10/25/18 15:50 68 18 146/69 92 L 10/25/18 15:43 97.9 F 63 14 117/70 94 L 10/25/18 12:45 69 17 158/78 93 L 10/25/18 12:06 71 18 178/81 92 L 10/25/18 10:02 97.4 F L 69 16 192/92 93 L Intake and Output 10/25/18 10/26/18 10/26/18 22:59 06:59 14:59 Intake Total 300 360 Output Total 700 250 Balance -400 110 Intake: Intake, IV Titration 300 Amount Sodium Chloride 0.9% 1, 300 000 ml @ 75 mls/hr IV . [id number] [facility] Rx#:[id number] Oral 360 Output: Urine 700 250 Other: Voiding Method Indwelling Catheter Indwelling Catheter Weight 99.5 kg On examination he is awake alert oriented. He is on a BiPAP. He is morbidly obese HEENT exam difficult. No obvious JVD neck is supple no facial asymmetry Lungs are significant for bilateral coarse crackles with some end expiratory wheezing. Fair air entry bilaterally Heart sounds are unremarkable somewhat distant and difficult to hear because of the labored breathing Abdomen is protuberant and nontender except for some mild tenderness on deep palpation in the left flank area as well as left loin. Extremity exam reveals mild edema. Warm to touch Neurologically awake alert oriented but has generalized weakness Results - Lab Results Most recent lab results ABG pH 7.24 (7.35-7.45) L 10/25/18 21:57 ABG pCO2 53 mmHg (35-45) H 10/25/18 21:57 ABG pO2 66 mmHg (83-108) L 10/25/18 21:57 ABG HCO3 23 mmol/L (21-25) 10/25/18 21:57 ABG O2 Saturation 91.3 % (94-97) L 10/25/18 21:57 Calcium 8.2 mg/dL (8.4-10.2) L 10/26/18 06:43 Phosphorus 5.7 mg/dL (2.5-4.5) H 10/25/18 10:52 Magnesium 1.6 mg/dL (1.6-2.3) 10/25/18 10:52 10/26/18 06:43 10/26/18 06:43 Assessment and Plan Assessment: Impression 1. Acute kidney injury secondary to possibly CHF as well as taking some nonsteroidals albeit 1 or 2 tablets of Advil a day. Rule out ischemic event in the abdomen or kidney this causing his left flank pain. Rule out ischemic bowel 2. Chronic kidney disease creatinine was 1.05 12/11/2017, went up to 1.43 on 01/09/2018, remained stable at 1.43 on 06/06/2018. The cause of this chronic kidney disease likely is nephrosclerosis with his history of diabetes there is an element of diabetic nephropathy with 1+ protein although it's not quantified yet. Because of the acute increase since 12/11/2017 other causes of kidney disease should be looked at such as glomerular or interstitial disease. 3., Obstructive sleep apnea, CHF. 4. Computed tomography scan shows right kidney lower pole 2 mm stone. Patient has history of nephrolithiasis in the past 5. History of CVA, history of ASHD with stent 6. Mild anemia hemoglobin is 10.1 7. Mild hyperkalemia secondary acute kidney injury. 8. Mild non-gap acidosis with bicarb 21, secondary to acute kidney injury and chronic kidney disease 9. COPD with hypercapnia pH is 7.24, pCO2 is 53 and pO2 is 66. Recommendation 1. Agree with continuing Lasix currently on start Lasix 80 mg every 12 hours. 2. Check orthostatic changes. 3. Check urine protein to creatinine ratio, urine immunoelectrophoresis. 4. Start sodium bicarb 650 twice a day to improve the acidosis as well as hyperkalemia 5. Obtain LDH to ensure there is no kidney infarct or bowel infarct. Lactic acid was normal at 0.7. 6. Avoid nonsteroidals, including Toradol
[2018-10-26] MEDS ORDERED: FUROSEMIDE 10 MG/ML 2 ML VIAL IV SCH (10:00)
[2018-10-26] MEDS: FUROSEMIDE 10 MG/ML 2 ML VIAL IV SCH ×2 (10:56→19:34)
[2018-10-26 11:23] LABS: Creatinine,Urine Random 64.8 mg/dL
[2018-10-26] MEDS: SODIUM BICARBONATE TAB 650 MG TAB PO SCH ×3 (12:24→21:14)
--- NOTE | 2018-10-26 12:29 | CONS ---
CONSULTATION PULMONARY/CRITICAL CARE CONSULTATION: DATE OF SERVICE: October 26, 2018 HISTORY OF PRESENT ILLNESS: This is a 68-year-old male who presents to the hospital for abdominal pain and possible kidney stones. 68-year-old male presents to the emergency department because of left flank pain. It has been going on for 4 or 5 days prior to admission. It has been getting progressively worse over that period of time. He does have some diarrhea without nausea or vomiting. He thinks that he is having another kidney stone because he has a long history of same. He knows this is what kidney stones feel like. The patient denies any other major medical issues related to his genitourinary tract. He does not have any pain on urination. No foul smelling urine. No blood in his urine. Nothing like that. He denies any respiratory issues typically, but states on this admission, he does feel short of breath and we find him on BiPAP when we go into the room. He is very confused and according to his significant other, not a reliable source of information. The chest x-ray shows what appears to be some mild fluid overload. In addition, he has chronically elevated left hemidiaphragm. In addition, the patient does have sleep apnea and does have a CPAP device or BiPAP device at home. In addition, the patient is a heavy former smoker. Used to smoke 4 packs a day for many years. He does have COPD, CVA, diabetes, GERD, hypertension, osteoarthritis, sleep apnea syndrome, and nephrolithiasis. HOME MEDICATIONS: Include as esomeprazole, amlodipine, tramadol, insulin, Flexeril, aspirin, Lipitor, Plavix, and omeprazole. ALLERGIES: NEOMYCIN. MEDICAL HISTORY: COPD, CVA, diabetes, GERD, hypertension, DJD, sleep apnea syndrome. He also apparently does have some "stomach problems". Other important history is. PAST SURGICAL HISTORY: Which includes cholecystectomy, heart catheterization with stent, hernia repair and some orthopedic procedures including carpal tunnel release, right hip pinning and right shoulder surgery. In addition, he has had heart stent x3, right carotid endarterectomy, and umbilical hernia repair. SOCIAL HISTORY: Positive for previous heavy tobacco use. At one point, he is smoking 4 packs a day. He denies any alcohol or illicit drug use. FAMILY HISTORY: Positive for mother with cancer. 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 REVIEW OF SYSTEMS: CONSTITUTIONAL negative. NEUROLOGIC negative. HEENT negative. CARDIOVASCULAR negative. PULMONARY: Shortness of breath. GI diarrhea. flank pain. RHEUMATOLOGIC: Negative. IMMUNOLOGIC negative. DERMATOLOGIC negative. ENDOCRINOLOGIC negative. PHYSICAL EXAMINATION: VITAL SIGNS: Current vital signs are reviewed. Temperature is 97.6. Heart rate 92, respiratory rate 20, blood pressure 160/107, mean 124, saturations are mid 90s on BiPAP at 12 and 5 and 50%. Appears in no acute distress. He is a bit confused. HEENT examination is grossly unremarkable. BiPAP mask in place. NECK: Supple. It is hayward. No adenopathy or thyromegaly. No neck vein distention. CARDIOVASCULAR: Regular rhythm and rate. Heart rate 92. S1, S2 normal. No S3 or murmur. LUNGS: Reveal coarse bilateral rhonchi. Some crackles. Breath sounds equal bilaterally. ABDOMEN: Obese. Bowel sounds are heard. EXTREMITIES are intact. No cyanosis, clubbing, or significant edema. SKIN: Without rash. NEUROLOGIC: Examination is nonfocal. LABORATORY DATA: Includes a white count of 10.5, hemoglobin 10.1, hematocrit 31.8, platelet count is 127,000. PT/INR is 13 and 1.3. Blood gases show a PaO2 of 66, pCO2 of 53, and a pH is 7.24. These blood gases are consistent with alveolar hypoventilation. One would possibly suspect drug effect. Sodium 139, potassium 5.6, chloride 106, CO2 21 anion gap is 12. BUN and creatinine were 56 and 5.99. Urine is essentially negative. Opiates are detected in his urine. X-RAY: Chest x-ray shows some mild pulmonary edema with cardiomegaly. Other x-rays evaluated. ASSESSMENT: 1. Difficulty breathing, likely related to fluid overload secondary to the patient's new onset renal failure/acute kidney injury. 2. Small bowel ileus. 3. History of nephrolithiasis. 4. History of chronic obstructive pulmonary disease from heavy tobacco use. 5. History of cerebrovascular accident. 6. Diabetes mellitus. 7. Gastroesophageal reflux disease. 8. Hypertension by history. 9. History of degenerative joint disease. 10.History of sleep apnea syndrome, noncompliant with CPAP. 11.Previous heart catheterization with stent placement. 12.Status post hernia repair. PLAN: The patient seems to be tolerating the BiPAP okay. We will make sure he is on appropriate medications for COPD. Additional recommendations and suggestions are forthcoming. Nephrology has seen the patient for the patient's acute kidney injury. No additional recommendations are made. Prognosis is guarded. MMRUBINAL / IJN: [id number] /
[2018-10-26 12:39] LABS: Glucose,Whole Blood 215 mg/dL (75-99)
[2018-10-26] MEDS: HYDROcodone/APAP 5-325MG 1 EACH TAB PO PRN (14:24)
[2018-10-26 17:05] LABS: Glucose,Whole Blood 134 mg/dL (75-99)
[2018-10-26] MEDS ORDERED: DILTIAZEM DRIP BOLUS FROM BAG 1 MG SOLN IV ONE (18:33)
[2018-10-26] MEDS: DILTIAZEM 125 MG in SODIUM CHLORIDE 0.9% 100 ML IV SCH (18:44)
[2018-10-26 20:47] LABS: Glucose,Whole Blood 184 mg/dL (75-99)
--- NOTE | 2018-10-26 22:32 | PN ---
PROGRESS NOTE I am covering for Dr. Dane Chowdary. DATE OF SERVICE: 10/26/2018 This 68-year-old gentleman who was admitted with acute renal failure also had some change in mental status. CT scan did not show acute abnormality. Chest x-ray showed some evidence of significant pleural effusion on the left along with some fluid overload also. Dr. Grady is following the patient closely. The patient is complaining of generalized aches and pains also. PAST MEDICAL HISTORY: Reviewed. REVIEW OF SYSTEMS: CARDIOVASCULAR SYSTEM: No angina or palpitations. RESPIRATORY: As mentioned earlier. GI: As mentioned earlier. : No dysuria. CENTRAL NERVOUS SYSTEM: No numbness or weakness. CURRENT MEDICATIONS: Reviewed and include: 1. Tylenol 650 q.6 p.r.n. 2. [place] 5 mg q.6h. 3. DuoNeb q.i.d. and p.r.n. 4. Norvasc 10 mg q.a.m. 5. Rocephin 1 g daily. 6. Catapres 0.1. 7. Plavix 75 mg daily. 8. Lasix 40 mg b.i.d. 9. Apresoline 10 mg q.4 p.r.n. 10.Zofran. 11.Protonix. 12.Sodium bicarb. PHYSICAL EXAM: Patient is alert, oriented x1, arousable, otherwise stuporous. Pulse is 155, blood pressure 140/103, respiration 20, temperature 98.2, pulse ox 93 percent on BiPAP. HEENT: Conjunctivae normal. NECK: No JVD. CARDIOVASCULAR: S1, S2 muffled. RESPIRATION: Breath sounds diminished in the bases. Bilateral scattered rhonchi and crackles. ABDOMEN: Soft, obese, nontender. LEGS: No edema. No swelling. NERVOUS SYSTEM: No focal deficits. LAB STUDIES: WBC 10.2, hemoglobin 10.1, sodium 130, potassium 5.2. Creatinine 5.99. ASSESSMENT: 1. Acute renal failure possibly secondary to acute tubular necrosis with prerenal factors. 2. Change in mental status, acute metabolic encephalopathy, secondary to renal failure, multifactorial. 3. Hyperkalemia mild. 4. Acute hypoxic respiratory failure secondary from fluid overload. 5. Acute left pleural effusion. 6. Anemia, normocytic anemia of chronic disease. 7. Thrombocytopenia. 8. History of nephrolithiasis, multiple episodes. 9. Chronic obstructive pulmonary disease. 10.Cerebrovascular accident, transient ischemic attack. 11.Diabetes mellitus type 2. 12.Gastroesophageal reflux disease. 13.Hypertension. 14.History of degenerative joint disease. 15.History of sleep apnea. 16.History of coronary artery disease/ stent. 17.History of anxiety, depression. 18.Remote history of nicotine dependence. 19.Obesity, body mass of 39.1. RECOMMENDATIONS AND DISCUSSION: Recommend to continue current medications, continue with monitoring, symptomatic treatment. Otherwise, at this time, I recommend a 2D echo with Doppler as well as continue the rest of the medications. Continue to follow closely with Nephrology. Discussed with Dr. Peoples. We will continue to monitor. Patient has made about 700 mL of urine at this time. We will continue with the current medications. Pulmonary consultation appreciated. Otherwise, I would also recommend Cardiology a 2D echo with Doppler and cardiology consultation as well. The prognosis guarded. Further recommendations to follow. Discussed with the family at length. ALLYN / JAYY: [id number] /
[2018-10-27] MEDS: DILTIAZEM 125 MG in SODIUM CHLORIDE 0.9% 100 ML IV SCH (05:46)
[2018-10-27 06:04] LABS: Glucose,Whole Blood 146 mg/dL (75-99)
[2018-10-27 06:27] LABS: Basophils % (A) 1 %; Eosinophils # (A) 0.1 k/uL (0-0.7); Eosinophils % (A) 1 %; HCT 28.9 % (39.0-53.0); HGB 9.3 gm/dL (13.0-17.5); Lymphocytes # (A) 0.7 k/uL (1.0-4.8); Lymphocytes % (A) 11 %; MCH 26.9 pg (25.0-35.0); MCHC 32.1 g/dL (31.0-37.0); MCV 83.8 fL (80.0-100.0); Monocytes # (A) 0.8 k/uL (0-1.0); Monocytes % (A) 11 %; Neutrophils % (A) 74 %; Platelet Count 111 k/uL (150-450); RBC 3.45 m/uL (4.30-5.90); RDW 15.6 % (11.5-15.5); WBC 6.7 k/uL (3.8-10.6)
[2018-10-27 06:39] LABS: Calcium 8.4 mg/dL (8.4-10.2); Potassium 4.4 mmol/L (3.5-5.1)
[2018-10-27] MEDS: PANTOPRAZOLE 40 MG TABLET PO SCH (06:41)
[2018-10-27] MEDS: INSULIN ASPART (NovoLOG) 100 UNIT/ML VIAL SQ SCH ×4 (06:41→21:35)
[2018-10-27] MEDS: cloNIDine HCL 0.1 MG TAB PO SCH (08:00)
[2018-10-27] MEDS: FUROSEMIDE 10 MG/ML 2 ML VIAL IV SCH ×2 (08:00→20:12)
[2018-10-27] MEDS: hydrALAZINE HCL 25 MG TAB PO SCH (08:00)
[2018-10-27] MEDS: SODIUM BICARBONATE TAB 650 MG TAB PO SCH ×4 (08:00→20:09)
[2018-10-27] MEDS: CLOPIDOGREL 75 MG TAB PO SCH (08:01)
[2018-10-27] MEDS: ACETAMINOPHEN TAB 325 MG TAB PO PRN ×2 (08:01→17:18)
[2018-10-27] MEDS: amLODIPine 10 MG TAB PO SCH (08:01)
--- NOTE | 2018-10-27 08:01 | P.PN ---
Subjective Progress Note Date: 10/27/18 Principal diagnosis: This is a 68-year-old male seen in consultation because of acute kidney injury and chronic kidney disease secondary because of 5 days of flank pain. This was associated with some diarrhea. The cause of the acute kidney injury deemed to be from ATN from nonsteroidal use, as well as from congestive heart failure. There was some question off ischemic bowel because of the abdominal pain. An LDH is high. He says his appetite is better today and he has had continued improvement in his abdominal pain which is in the left flank mostly. He has chronic kidney disease likely from nephrosclerosis with an element of diabetic nephropathy with 1+ proteinuria not quantified. The possibility of other causes of chronic kidney disease was considered as his creatinine has been going up somewhat rapidly. Creatinine was 1.05 on 12/11/2017, 1.43 on 01/09/2018 , and remained stable and 1.43 on 06/06/2018. She is also known with obstructive sleep apnea 82 mm right kidney lower pole stone, history of ASHD with stent and COPD Objective - Vital Signs Vital signs: Vital Signs Temp 97.9 F 10/27/18 00:00 Pulse 88 10/27/18 04:00 Resp 20 10/27/18 04:00 BP 141/79 10/27/18 04:00 Pulse Ox 94 L 10/27/18 04:00 Intake & Output 10/26/18 10/27/18 10/27/18 18:59 06:59 18:59 Intake Total 700 240 Output Total 950 900 875 Balance -250 -717 -873 Weight 87 kg Intake: Intake, IV Titration 120 Amount Diltiazem 125 mg In 120 Sodium Chloride 0.9% 100 ml @ 10 MG/HR 10 mls/hr IV .[id number] [facility] Rx#: [id number] Oral 700 120 Output: Urine 950 900 875 Other: Voiding Method Indwelling Catheter Indwelling Catheter On examination he is awake alert oriented. He is on a BiPAP. He is morbidly obese HEENT exam difficult. No obvious JVD neck is supple no facial asymmetry Lungs are significant for bilateral coarse crackles with some end expiratory wheezing. Fair air entry bilaterally Heart sounds are unremarkable somewhat distant and difficult to hear because of the labored breathing Abdomen is protuberant and nontender except for some mild tenderness on deep palpation in the left flank area as well as left loin. Extremity exam reveals mild edema. Warm to touch Neurologically awake alert oriented but has generalized weakness. He was able to name the hospital with a, which state he was in, was able to substract 7 from 100. He does not have any asterixis. - Labs CBC & Chem 7: 10/27/18 05:29 10/27/18 05:29 Labs: Abnormal Lab Results - Last 24 Hours (Table) 10/26/18 10/26/18 10/26/18 Range/Units 10:50 11:50 16:49 RBC (4.30-5.90) m/uL Hgb (13.0-17.5) gm/dL Hct (39.0-53.0) % RDW (11.5-15.5) % Plt Count (150-450) k/uL Lymphocytes # (1.0-4.8) k/uL BUN (9-20) mg/dL Creatinine (0.66-1.25) mg/dL Glucose (74-99) mg/dL POC Glucose (mg/dL) 215 H 134 H (75-99) mg/dL U Random Total Protein 38 H (<12) mg/dL 10/26/18 10/27/18 10/27/18 Range/Units 20:46 05:29 05:29 RBC 3.45 L (4.30-5.90) m/uL Hgb 9.3 L (13.0-17.5) gm/dL Hct 28.9 L (39.0-53.0) % RDW 15.6 H (11.5-15.5) % Plt Count 111 L (150-450) k/uL Lymphocytes # 0.7 L (1.0-4.8) k/uL BUN 62 H (9-20) mg/dL Creatinine 6.36 H (0.66-1.25) mg/dL Glucose 136 H (74-99) mg/dL POC Glucose (mg/dL) 184 H (75-99) mg/dL U Random Total Protein (<12) mg/dL 10/27/18 Range/Units 06:02 RBC (4.30-5.90) m/uL Hgb (13.0-17.5) gm/dL Hct (39.0-53.0) % RDW (11.5-15.5) % Plt Count (150-450) k/uL Lymphocytes # (1.0-4.8) k/uL BUN (9-20) mg/dL Creatinine (0.66-1.25) mg/dL Glucose (74-99) mg/dL POC Glucose (mg/dL) 146 H (75-99) mg/dL U Random Total Protein (<12) mg/dL Assessment and Plan Assessment: Impression 1. Acute kidney injury with ATN, secondary to possibly CHF as well as taking some nonsteroidals albeit 1 or 2 tablets of Advil a day. Possibility of ischemic bowel or ischemic kidney was considered but because of rapid improvement it may be just a acute tubular necrosis that is starting to recover with good urine output albeit creatinine continues to go up slightly. C reatinine went up to 6.36 from 5.9 2. Chronic kidney disease creatinine was 1.05 12/11/2017, went up to 1.43 on 01/09/2018, remained stable at 1.43 on 06/06/2018. The cause of this chronic kidney disease likely is nephrosclerosis with his history of diabetes there is an element of diabetic nephropathy with 1+ protein. His urine protein to creatinine ratio is 38/64 as of 10/25/2018 Because of the acute increase since 12/11/2017 other causes of kidney disease should be looked at such as glomerular or interstitial disease. 3., Obstructive sleep apnea, CHF. Improved 4. Computed tomography scan shows right kidney lower pole 2 mm stone. Patient has history of nephrolithiasis in the past 5. History of CVA, history of ASHD with stent 6. Mild anemia hemoglobin is 10.1 7. Mild hyperkalemia secondary acute kidney injury. 8. Mild non-gap acidosis with bicarb 21, secondary to acute kidney injury and chronic kidney disease 9. COPD with hypercapnia pH is 7.24, pCO2 is 53 and pO2 is 66. Recommendation 1. Continue Lasix because of the congestive heart failure. Is on 40 mg every 12 with good urine output. 2. Check orthostatic changes. 3. Check urine urine immunoelectrophoresis. 4. Continue sodium bicarb 650 twice a day to improve the acidosis as well as hyperkalemia 5. Avoid nonsteroidals, including Toradol 6. No need for immediate for urgent dialysis but it may be a possibly tomorrow if he does not show recovery
--- NOTE | 2018-10-27 10:03 | P.CRDCN ---
History of Present Illness Consult date: 10/27/18 Chief complaint: Shortness of breath History of present illness: This is a pleasant 68-year-old gentleman who I follow in the office as an outpat ient with a past medical history significant for coronary artery disease where he underwent in December 2017 successful stenting of the proximal, mid, and distal right coronary artery, diabetes, hypertension, dyslipidemia, and history of carotid disease with prior carotid revascularization long time ago, was admitted to the hospital with congestive heart failure exacerbation as well as acute on chronic renal failure. For the last few days, the patient was not feeling well. Initially he thought he was experiencing symptoms of kidney stone where he experienced in the past. He was having symptoms of low back pain and flank pain. But when I spoke with his was bedside and with further details he was experiencing symptoms of progressive dyspnea. No clear-cut symptoms of orthopnea or PND. But he did the flow bilateral lower extremities edema and he stated that he gained about 5 pounds within the last few days. No chest pain or chest discomfort, fever, chills, cough, or sputum. No dizziness or lightheadedness, heart racing or fluttering, or syncope. He stated that he was experiencing symptoms of diarrhea as well as. The BNP came in to be around 11,000. The chest x-ray showed findings consistent with left pleural effusion as well as cardiomegaly and pulmonary vascular congestions. Beside that, the patient was found to be in acute renal failure. The creatinine was around 5. Nephrology consult was obtained. Currently the patient is on Lasix IV for the congestive heart failure. He is also known to have aortic stenosis based on an echocardiogram was performed in 2018. Please note that the patient clearly stated that he was not compliant with his diet and he was eating everything including salts. He stated that he was compliant with his medication though. The troponin was not checked. Past Medical History Past Medical History: COPD, CVA/TIA, Diabetes Mellitus, GERD/Reflux, Hypertension, Osteoarthritis (OA), Sleep Apnea/CPAP/BIPAP Additional Past Medical History / Comment(s): having "stomach problems",has cpap History of Any Multi-Drug Resistant Organisms: None Reported Past Surgical History: Cholecystectomy, Heart Catheterization With Stent, Hernia Repair, Orthopedic Surgery Additional Past Surgical History / Comment(s): heart stents x 3,carpal tunnel, right carotid, RIGHT HIP with pin, rt shoulder, umbilical hernia Past Anesthesia/Blood Transfusion Reactions: No Reported Reaction Date of Last Stent Placement:: 12-10-17 Past Psychological History: Anxiety, Depression Smoking Status: Former smoker Past Alcohol Use History: None Reported Additional Past Alcohol Use History / Comment(s): STARTED SMOKING AT AGE 15 QUIT SMOKING AT AGE 35 SMOKED 2-3 PPD Past Drug Use History: None Reported - Past Family History Mother Family Medical History: Cancer Medications and Allergies Home Medications Medication Instructions Recorded Confirmed Type amLODIPine BESYLATE [Amlodipine 10 mg PO QAM 10/26/15 10/25/18 History Besylate] traMADol HCL [Tramadol HCl] 50 mg PO TID PRN 10/26/15 10/25/18 History Atorvastatin [Lipitor] 80 mg PO HS #90 tab 12/11/17 10/25/18 Rx Clopidogrel [Plavix] 75 mg PO DAILY #90 tab 12/11/17 10/25/18 Rx Omeprazole 40 mg PO DAILY #60 capsule. 12/31/17 10/25/18 Rx Citalopram Hydrobromide 40 mg PO DAILY 10/25/18 10/25/18 History [Citalopram HBr] Gabapentin 600 mg PO BID 10/25/18 10/25/18 History Gabapentin [Neurontin] 300 mg PO BID 10/25/18 10/25/18 History HYDROcodone/APAP 5-325MG [[place] 1 tab PO Q6HR PRN 10/25/18 10/25/18 History 5-325] Hydrochlorothiazide [Hydrodiuril] 25 mg PO DAILY 10/25/18 10/25/18 History Ranitidine HCl 150 mg PO BID 10/25/18 10/25/18 History cloNIDine HCL [Catapres] 0.1 mg PO DAILY 10/25/18 10/25/18 History hydrALAZINE HCL [Apresoline] 25 mg PO DAILY 10/25/18 10/25/18 History metFORMIN HCL 1,000 mg PO BID 10/25/18 10/25/18 History Allergies Allergy/AdvReac Type Severity Reaction Status Date / Time neomycin Allergy Itching Verified 10/25/18 17:54 Physical Exam Vitals: Vital Signs Temp Pulse Pulse Resp BP BP BP 10/27/18 08:31 114 H 10/27/18 08:18 118 H 10/27/18 08:00 98.3 F 82 20 146/70 152/79 10/27/18 04:00 88 20 141/79 10/27/18 03:57 120 H 21 10/27/18 00:00 97.9 F 120 H 21 132/75 10/26/18 20:58 128 H 10/26/18 20:30 120 H 10/26/18 20:00 98.8 F 126 H 21 121/70 10/26/18 18:40 130 H 16 122/67 10/26/18 18:00 155 H 20 148/103 10/26/18 16:12 90 10/26/18 16:02 90 10/26/18 16:00 97.6 F 84 20 149/58 10/26/18 12:31 86 10/26/18 12:24 88 10/26/18 11:15 97.5 F L 86 20 137/63 Pulse Ox 10/27/18 08:31 10/27/18 08:18 92 L 10/27/18 08:00 97 10/27/18 04:00 94 L 10/27/18 03:57 10/27/18 00:00 93 L 10/26/18 20:58 10/26/18 20:30 10/26/18 20:00 91 L 10/26/18 18:40 10/26/18 18:00 93 L 10/26/18 16:12 10/26/18 16:02 10/26/18 16:00 96 10/26/18 12:31 10/26/18 12:24 10/26/18 11:15 94 L Intake and Output 10/26/18 10/27/18 10/27/18 22:59 06:59 14:59 Intake Total 240 240 230 Output Total 600 300 875 Balance -360 60 645 Intake: Intake, IV Titration 120 Amount Diltiazem 125 mg In 120 Sodium Chloride 0.9% 100 ml @ 10 MG/HR 10 mls/hr IV .[id number] [facility] Rx#: [id number] Oral 240 120 230 Output: Urine 600 300 875 Other: Voiding Method Indwelling Catheter Indwelling Catheter Indwelling Catheter Weight 87 kg - Constitutional General appearance: no acute distress - Respiratory Respiratory: bilateral: rales - Cardiovascular Rhythm: regular Heart sounds: normal: S1, S2 Abnormal Heart Sounds: systolic murmur Results 10/27/18 05:29 10/27/18 05:29 Cardiac Enzymes 10/26/18 Range/Units 06:43 Lactate Dehydrogenase 596 (313-618) U/L CBC 10/27/18 Range/Units 05:29 WBC 6.7 (3.8-10.6) k/uL RBC 3.45 L (4.30-5.90) m/uL Hgb 9.3 L (13.0-17.5) gm/dL Hct 28.9 L (39.0-53.0) % Plt Count 111 L (150-450) k/uL Comprehensive Metabolic Panel 10/27/18 Range/Units 05:29 Sodium 137 (137-145) mmol/L Potassium 4.4 (3.5-5.1) mmol/L Chloride 104 (98-107) mmol/L Carbon Dioxide 22 (22-30) mmol/L BUN 62 H (9-20) mg/dL Creatinine 6.36 H (0.66-1.25) mg/dL Glucose 136 H (74-99) mg/dL Calcium 8.4 (8.4-10.2) mg/dL Current Medications Generic Name Dose Route Start Last Admin Trade Name Freq PRN Reason Stop Dose Admin Acetaminophen 650 mg 10/25/18 14:50 10/27/18 08:01 Tylenol Tab PO 650 mg Q6HR PRN Administration Mild Pain or Fever > 100.5 Hydrocodone Bitart/Acetaminophen 0.5 each 10/26/18 14:16 10/26/18 14:24 [place] 5-325 PO 0.5 each Q6HR PRN Administration Pain Albuterol/Ipratropium 3 ml 10/25/18 21:50 10/27/18 08:18 Duoneb 0.5 Mg-3 Mg/3 Ml Soln INHALATION 3 ml RT-QID PRN Administration Shortness Of Breath Or Wheezing Amlodipine Besylate 10 mg 10/26/18 09:00 10/27/18 08:01 Norvasc PO 10 mg QAM NURIS Administration Clonidine 0.1 mg 10/26/18 09:00 10/27/18 08:00 Catapres PO 0.1 mg DAILY NURIS Administration Clopidogrel Bisulfate 75 mg 10/26/18 09:00 10/27/18 08:01 Plavix PO 75 mg DAILY NURIS Administration Furosemide 40 mg 10/26/18 10:00 10/27/18 08:00 Lasix IV 40 mg Q12HR NURIS Administration Hydralazine HCl 25 mg 10/26/18 09:00 10/27/18 08:00 Apresoline PO 25 mg DAILY NURIS Administration Hydralazine HCl 10 mg 10/25/18 20:36 10/26/18 08:04 Apresoline IVP 10 mg Q4HR PRN Administration Blood Pressure - High Ceftriaxone Sodium 1 gm/ 50 mls @ 100 mls/hr 10/26/18 12:15 10/27/18 08:01 Sodium Chloride IVPB 100 mls/hr Q24HR NURIS Administration Diltiazem HCl 125 mg/ Sodium 125 mls @ 10 mls/hr 10/26/18 18:45 10/27/18 05:46 Chloride IV Not Given .[id number] [facility] 10 MG/HR Insulin Aspart 0 unit 10/25/18 21:00 10/27/18 06:41 Novolog SQ 1 unit ACHS NURIS Administration Protocol Ondansetron HCl 4 mg 10/25/18 14:50 Zofran IVP Q8HR PRN Nausea And Vomiting Pantoprazole Sodium 40 mg 10/26/18 07:30 10/27/18 06:41 Protonix PO 40 mg [id number] NURIS Administration Sodium Bicarbonate 650 mg 10/26/18 13:00 10/27/18 08:00 Sodium Bicarbonate Tab PO 650 mg QID NURIS Administration Intake and Output 10/26/18 10/27/18 10/27/18 22:59 06:59 14:59 Intake Total 240 240 230 Output Total 600 300 875 Balance -360 -60 -645 Intake: Intake, IV Titration 120 Amount Diltiazem 125 mg In 120 Sodium Chloride 0.9% 100 ml @ 10 MG/HR 10 mls/hr IV .[id number] [facility] Rx#: [id number] Oral 240 120 230 Output: Urine 600 300 875 Other: Voiding Method Indwelling Catheter Indwelling Catheter Indwelling Catheter Weight 87 kg 10/27/18 05:29 10/27/18 05:29 Assessment and Plan Assessment: Assessment #1 congestive heart failure exacerbation probably related to diastolic dysfunction as well as aortic stenosis #2 coronary artery disease and prior coronary artery vascularization. The patient underwent stenting of the RCA last year #3 acute on chronic renal failure #4 hypertension #5 dyslipidemia #6 sleep apnea Plan #1 currently the patient is on Lasix IV. #2 continue monitoring the kidney function and electrolytes #3 avoid any nephrotoxic medications #4 obtain an echocardiogram was Doppler to assess the status of the aortic valve #5 acute coronary syndrome to be ruled out. We'll get serial cardiac enzymes.
[2018-10-27] MEDS: IPRATROPIUM-ALBUTEROL 3 ML NEB INHALATION PRN ×5 (10:18→20:49)
--- NOTE | 2018-10-27 10:22 | XR ---
EXAMINATION TYPE: XR chest 1V portable DATE OF EXAM: 10/27/2018 COMPARISON: 10/26/2018 INDICATION: CHF TECHNIQUE: Single frontal view of the chest is obtained. FINDINGS: The heart size is normal. The pulmonary vasculature is upper limits of normal. Been significant improvement of a left perihilar infiltrate. Mild residual remains. Correlate for ate lectasis. IMPRESSION: 1. Significant improvement of a left lung infiltrate. Some mild residual remains. Correlate for atele ctasis.
--- NOTE | 2018-10-27 11:39 | P.PN ---
Subjective Progress Note Date: 10/27/18 Principal diagnosis: Dyspnea secondary to fluid volume overload The patient is seen today 10/27/2018 in follow-up on the selective care unit. He is awake and alert in no acute distress. Resting comfortably in bed. Currently maintaining O2 saturations in the upper 90s on 6 L high flow nasal cannula alternating with BiPAP. He is breathing easier today as compared to yesterday. White count 6.7. Hemoglobin 9.3. Creatinine 6.36. He remains on DuoNeb inhalations. An antibiotics in the form of ceftriaxone. He is on IV Lasix 40 mg every 12 hours. Nephrology is on the case. Chest x-ray shows significant improvement in the left lower lobe infiltrate/effusion. Objective - Vital Signs Vital signs: Vital Signs Temp 98.3 F 10/27/18 08:00 Pulse 114 H 10/27/18 08:31 Resp 20 10/27/18 08:00 BP 152/79 10/27/18 08:00 Pulse Ox 92 L 10/27/18 08:18 Intake & Output 10/26/18 10/27/18 10/27/18 18:59 06:59 18:59 Intake Total 700 240 230 Output Total 950 900 875 Balance -250 -766 -645 Weight 87 kg Intake: Intake, IV Titration 120 Amount Diltiazem 125 mg In 120 Sodium Chloride 0.9% 100 ml @ 10 MG/HR 10 mls/hr IV .[id number] [facility] Rx#: [id number] Oral 700 120 230 Output: Urine 950 900 875 Other: Voiding Method Indwelling Catheter Indwelling Catheter Indwelling Catheter - Exam GENERAL EXAM: Alert, comfortable in no apparent distress. 6 L high flow nasal cannula. HEAD: Normocephalic. EYES: Normal reaction of pupils, equal size. NOSE: Clear with pink turbinates. THROAT: No erythema or exudates. NECK: No masses, no JVD. CHEST: No chest wall deformity. LUNGS: Equal air entry with crackles in the left lung base. CVS: S1 and S2 normal with no audible murmur, regular rhythm. ABDOMEN: No hepatosplenomegaly, normal bowel sounds, no guarding or rigidity. SPINE: No scoliosis or deformity SKIN: No rashes CENTRAL NERVOUS SYSTEM: No focal deficits, tone is normal in all 4 extremities. EXTREMITIES: There is no peripheral edema. No clubbing, no cyanosis. Periphe ral pulses are intact. - Labs CBC & Chem 7: 10/27/18 05:29 10/27/18 05:29 Labs: Abnormal Lab Results - Last 24 Hours (Table) 10/26/18 10/26/18 10/26/18 Range/Units 10:50 11:50 16:49 RBC (4.30-5.90) m/uL Hgb (13.0-17.5) gm/dL Hct (39.0-53.0) % RDW (11.5-15.5) % Plt Count (150-450) k/uL Lymphocytes # (1.0-4.8) k/uL BUN (9-20) mg/dL Creatinine (0.66-1.25) mg/dL Glucose (74-99) mg/dL POC Glucose (mg/dL) 215 H 134 H (75-99) mg/dL U Random Total Protein 38 H (<12) mg/dL 10/26/18 10/27/18 10/27/18 Range/Units 20:46 05:29 05:29 RBC 3.45 L (4.30-5.90) m/uL Hgb 9.3 L (13.0-17.5) gm/dL Hct 28.9 L (39.0-53.0) % RDW 15.6 H (11.5-15.5) % Plt Count 111 L (150-450) k/uL Lymphocytes # 0.7 L (1.0-4.8) k/uL BUN 62 H (9-20) mg/dL Creatinine 6.36 H (0.66-1.25) mg/dL Glucose 136 H (74-99) mg/dL POC Glucose (mg/dL) 184 H (75-99) mg/dL U Random Total Protein (<12) mg/dL 10/27/18 Range/Units 06:02 RBC (4.30-5.90) m/uL Hgb (13.0-17.5) gm/dL Hct (39.0-53.0) % RDW (11.5-15.5) % Plt Count (150-450) k/uL Lymphocytes # (1.0-4.8) k/uL BUN (9-20) mg/dL Creatinine (0.66-1.25) mg/dL Glucose (74-99) mg/dL POC Glucose (mg/dL) 146 H (75-99) mg/dL U Random Total Protein (<12) mg/dL Assessment and Plan Assessment: Impression: #1 Acute on chronic hypoxic respiratory failure secondary to acute fluid volume overload contrary to acute renal failure. #2 Small bowel ileus. #3 History of nephrolithiasis. #4 History of chronic obstructive pulmonary disease. #5 History of heavy tobacco use. #6 History of CVA. #7 Diabetes mellitus. #8 Gastroesophageal reflux disease. #9 History of hypertension. #10 Degenerative joint disease. #11 History of obstructive sleep apnea, noncompliant with CPAP. #12 Coronary artery disease with previous stent placement. Plan: The patient was seen and evaluated by Dr. Bills. Chest x-rays improved. Maintaining good O2 saturations in the 90s on 6 L high flow nasal cannula alternating with BiPAP. Renal function worsening. Remains on IV diuretics. Remains on sodium bicarb. We will continue to follow and make further recommendations based on his clinical status. I, the cosigning physician, performed a history & physical examination of the patient. Lungs sounds crackles in the left lung base Maintaining good O2 saturations in the 90s on liters high flow nasal cannula. I discussed the assessment and plan of care with my nurse practitioner, Colleen Amaya. I attest to the above note as dictated by her.
[2018-10-27 11:48] LABS: Glucose,Whole Blood 143 mg/dL (75-99)
--- NOTE | 2018-10-27 13:50 | ECHOF ---
Referral Reason:chf MEASUREMENTS -------- HEIGHT: 175.3 cm WEIGHT: 98.8 kg BP: 160/107 MV E Alex: 0.97 m/s MV DecT: 200 ms MV A Alex: 0.89 m/s MV E/A Ratio: 1.09 FINDINGS -------- Sinus rhythm. This was a techncally difficult study with suboptimal views, , Lumason utilized for enhancement of im ages. Pt. not compliant. ATTEMPTED LIMITED STUDY LV not well visualized , LVH, EF 50 to 55%. RV not visualized The left atrium was not well visualized. The right atrium was not well visualized. 5.0mg of Lumason was utilized for enhancement of images The aortic valve was not well visualized. There is no evidence of aortic regurgitation. There is no evidence of aortic stenosis. The mitral valve was not well visualized. No mitral regurgitation. The tricuspid valve was not well visualized. The pulmonic valve was not well visualized. CONCLUSIONS -------- 1. Sinus rhythm. 2. This was a techncally difficult study with suboptimal views, , Lumason utilized for enhancement of images. 3. Pt. not compliant. 4. ATTEMPTED LIMITED STUDY 5. LV not well visualized , LVH, EF 50 to 55%. 6. The left atrium was not well visualized. 7. The right atrium was not well visualized. 8. 5.0mg of Lumason was utilized for enhancement of images 9. The aortic valve was not well visualized. 10. There is no evidence of aortic regurgitation. 11. There is no evidence of aortic stenosis. 12. The mitral valve was not well visualized. 13. No mitral regurgitation. 14. The tricuspid valve was not well visualized. 15. The pulmonic valve was not well visualized. [facility] OPERATOR: Vicenta Ventura, [facility]
[2018-10-27 17:10] LABS: Glucose,Whole Blood 218 mg/dL (75-99)
[2018-10-27] MEDS: HYDROcodone/APAP 5-325MG 1 EACH TAB PO PRN (20:14)
[2018-10-27 21:15] LABS: Glucose,Whole Blood 164 mg/dL (75-99)
--- NOTE | 2018-10-27 22:09 | PN ---
PROGRESS NOTE DATE OF SERVICE: 10/27/2018 I am covering for Dr. Dane Chowdary. HISTORY OF PRESENT ILLNESS: This 68-year-old gentleman with a past medical history of multiple medical problems admitted with acute renal failure. The patient has significant multiple other medical history including change in mental status, shortness of breath and as well as fluid overload. Dr. Peoples from Nephrology is following the patient closely with conservative line of management with conservative line of management, the patient is producing about 700 mL of urine. The creatinine has gone up though but Dr. Peoples would like to wait for tomorrow to decide on any possibility of hemodialysis at this time. Multiple consultants including Cardiology and Pulmonology following the patient closely. A 2D echo with Doppler was done which showed ejection fraction about 50-55 percent. Technically difficult study. PAST MEDICAL HISTORY: Reviewed. REVIEW OF SYSTEM: Cardiovascular system: As mentioned earlier. RESPIRATORY: As mentioned earlier. GASTROINTESTINAL: As mentioned earlier. mentioned. Nervous system: Diffusely weak and confused. CURRENT MEDICATIONS: 1. Tylenol 650 q.6 p.r.n. 2. [place] 5 mg q.6h. 3. DuoNeb q.i.d. and p.r.n. 4. Norvasc 10 mg. 5. Rocephin 1 g daily. 6. Catapres 0.1 t.i.d. 7. Plavix 75 mg daily. 8. Lasix 40 mg b.i.d. 9. Apresoline 10 mg q.4 p.r.n. 10.NovoLog scale. 11.Zofran 4 mg. 12.Protonix 40 mg daily. PHYSICAL EXAM: Patient is alert, oriented, times x 2, arousable. Otherwise, drowsy. Pulse 85, blood pressure 137/76, respiration 20, temperature 97.7, pulse ox 93% on 6 L. HEENT is conjunctivae normal. Neck is no jugular venous distention. No carotid bruit. No lymph node enlargement. Cardiovascular system: S1, S2 muffled. RESPIRATORY: Breath sounds diminished in the bases. Bilateral scattered rhonchi and crackles. ABDOMEN: Soft, obese, nontender. LEGS: Minimal edema. NERVOUS SYSTEM: No focal deficits. LABS: WBC 6.6, hemoglobin 9.3, and creatinine 6.36. Troponin 0.46. ASSESSMENT: 1. Acute renal failure possibly prerenal secondary to acute tubular necrosis and prerenal factors. 2. Change in mental status, acute metabolic encephalopathy secondary to renal failure multifactorial. 3. Hyperkalemia mild. 4. Acute hypoxic respiratory failure secondary to fluid overload. 5. Acute left pleural effusion. 6. Anemia, normocytic anemia of chronic disease. 7. Thrombocytopenia. 8. History of nephrolithiasis, multiple episodes. 9. Chronic obstructive pulmonary disease. 10.Cerebrovascular accident, transient ischemic attack. 11.Diabetes mellitus type 2. 12.Gastroesophageal reflux disease. 13.Hypertension. 14.History of degenerative joint disease. 15.History of sleep apnea. 16.History of coronary artery disease/ stent. 17.History of anxiety, depression. 18.Remote history of nicotine dependence. 19.Obesity with body mass index of 39.1. RECOMMENDATIONS AND DISCUSSION: Recommend to continue current medications, continue symptomatic treatment. Continue with IV diuretics as recommended by Nephrology and continue with bronchodilators. Empiric antibiotics also will be given. Otherwise, we will continue to monitor. Overall prognosis extremely guarded because of multiple complex medical issues. Discussed with the family who are aware and Dr. Chowdary will follow tomorrow. As mentioned earlier, Dr. Peoples, Nephrology will review the urine output and other metrics including the renal creatinine and will proceed as far as the hemodialysis is concerned. Overall prognosis extremely guarded because of multiple complex medical issues. Further recommendations to follow. MMODL / IJN: [id number] /
[2018-10-28] MEDS: hydrALAZINE HCL 20 MG/ML 1 ML VIAL IVP PRN (00:53)
[2018-10-28] MEDS ORDERED: DILTIAZEM 125 MG in SODIUM CHLORIDE 0.9% 100 ML IV SCH (01:00)
[2018-10-28 06:23] LABS: Glucose,Whole Blood 164 mg/dL (75-99)
[2018-10-28] MEDS: INSULIN ASPART (NovoLOG) 100 UNIT/ML VIAL SQ SCH ×4 (06:34→21:23)
[2018-10-28] MEDS: PANTOPRAZOLE 40 MG TABLET PO SCH (06:34)
[2018-10-28] MEDS: ACETAMINOPHEN TAB 325 MG TAB PO PRN ×3 (06:35→20:11)
[2018-10-28 06:49] LABS: Basophils % (A) 0 %; Eosinophils # (A) 0.2 k/uL (0-0.7); Eosinophils % (A) 3 %; HCT 31.7 % (39.0-53.0); HGB 10.3 gm/dL (13.0-17.5); Lymphocytes # (A) 0.6 k/uL (1.0-4.8); Lymphocytes % (A) 10 %; MCH 26.7 pg (25.0-35.0); MCHC 32.4 g/dL (31.0-37.0); MCV 82.5 fL (80.0-100.0); Mean Platelet Volume 8.1; Monocytes # (A) 0.6 k/uL (0-1.0); Monocytes % (A) 10 %; Neutrophils # (A) 4.6 k/uL (1.3-7.7); Neutrophils % (A) 74 %; Platelet Count 126 k/uL (150-450); RBC 3.85 m/uL (4.30-5.90); RDW 14.8 % (11.5-15.5); WBC 6.2 k/uL (3.8-10.6)
[2018-10-28 07:05] LABS: Calcium 8.5 mg/dL (8.4-10.2); Potassium 4.1 mmol/L (3.5-5.1)
[2018-10-28] MEDS: IPRATROPIUM-ALBUTEROL 3 ML NEB INHALATION PRN ×4 (08:44→20:41)
[2018-10-28] MEDS: hydrALAZINE HCL 25 MG TAB PO SCH (09:09)
[2018-10-28] MEDS: SODIUM BICARBONATE TAB 650 MG TAB PO SCH ×4 (09:09→20:12)
[2018-10-28] MEDS: amLODIPine 10 MG TAB PO SCH (09:09)
[2018-10-28] MEDS: cloNIDine HCL 0.1 MG TAB PO SCH (09:09)
[2018-10-28] MEDS: CLOPIDOGREL 75 MG TAB PO SCH (09:09)
--- NOTE | 2018-10-28 09:12 | P.PN ---
Subjective Progress Note Date: 10/28/18 Principal diagnosis: Congestive heart failure secondary to diastolic dysfunction This is a pleasant 68-year-old gentleman who I follow in the office as an outpatient with a past medical history significant for coronary artery disease where he underwent in December 2017 successful stenting of the proximal, mid, and distal right coronary artery, diabetes, hypertension, dyslipidemia, and history of carotid disease with prior carotid revascularization long time ago, was admitted to the hospital with congestive heart failure exacerbation as well as acute on chronic renal failure. For the last few days, the patient was not feeling well. Initially he thought he was experiencing symptoms of kidney stone where he experienced in the past. He was having symptoms of low back pain and flank pain. But when I spoke with his was bedside and with further details he was experiencing symptoms of progressive dyspnea. No clear-cut symptoms of orthopnea or PND. But he did the flow bilateral lower extremities edema and he stated that he gained about 5 pounds within the last few days. No chest pain or chest discomfort, fever, chills, cough, or sputum. No dizziness or light headedness, heart racing or fluttering, or syncope. He stated that he was experiencing symptoms of diarrhea as well as. The BNP came in to be around 11,000. The chest x-ray showed findings consistent with left pleural effusion as well as cardiomegaly and pulmonary vascular congestions. Beside that, the patient was found to be in acute renal failure. The creatinine was around 5. Nephrology consult was obtained. Currently the patient is on Lasix IV for the congestive heart failure. He is also known to have aortic stenosis based on an echocardiogram was performed in 2018. Please note that the patient clearly stated that he was not compliant with his diet and he was eating everything in cluding salts. On follow-up with the patient today, 10/28/2018, the patient stated that he is feeling slightly better in terms of shortness of breath. He still have crackles on examination. He still have at least moderate bilateral lower extremities edema. Last night, he went into atrial fibrillation with RVR and was started on Cardizem and drip. Currently he is on Cardizem and drip at 5 mg per hour. I'm going to wean him from the Cardizem drip and start him on metoprolol 25 mg by mouth twice a day. Also he to be on anticoagulation. Having said that I would start the patient on Eliquis attempt 5 mg by mouth twice a day and once that started I will stop the Plavix and start him on baby aspirin. The echocardiogram was performed yesterday and was technically very difficult but overall left ventricular systolic function is normal with evidence of aortic stenosis. Objective - Vital Signs Vital signs: Vital Signs Temp 98.6 F 10/28/18 08:00 Pulse 97 10/28/18 08:59 Resp 20 10/28/18 08:00 BP 170/73 10/28/18 08:00 Pulse Ox 95 10/28/18 08:45 Intake & Output 10/27/18 10/28/18 10/28/18 18:59 06:59 18:59 Intake Total 592 230 Output Total 3100 900 900 Balance -2508 -900 -136 Weight 115.9 kg Intake: Oral 592 230 Output: Urine 3100 900 900 Other: Voiding Method Indwelling Catheter Indwelling Catheter - Constitutional General appearance: Present: no acute distress - Respiratory Respiratory: bilateral: rales - Cardiovascular Rhythm: irregularly irregular Heart sounds: normal: S1, S2 Abnormal Heart Sounds: Present: systolic murmur - Labs CBC & Chem 7: 10/28/18 06:22 10/28/18 06:22 Labs: Abnormal Lab Results - Last 24 Hours (Table) 10/27/18 10/27/18 10/27/18 Range/Units 10:28 11:44 17:06 RBC (4.30-5.90) m/uL Hgb (13.0-17.5) gm/dL Hct (39.0-53.0) % Plt Count (150-450) k/uL Lymphocytes # (1.0-4.8) k/uL BUN (9-20) mg/dL Creatinine (0.66-1.25) mg/dL Glucose (74-99) mg/dL POC Glucose (mg/dL) 143 H 218 H (75-99) mg/dL Troponin I 0.046 H* (0.000-0.034) ng/mL 10/27/18 10/28/18 10/28/18 Range/Units 21:13 06:21 06:22 RBC 3.85 L (4.30-5.90) m/uL Hgb 10.3 L (13.0-17.5) gm/dL Hct 31.7 L (39.0-53.0) % Plt Count 126 L (150-450) k/uL Lymphocytes # 0.6 L (1.0-4.8) k/uL BUN (9-20) mg/dL Creatinine (0.66-1.25) mg/dL Glucose (74-99) mg/dL POC Glucose (mg/dL) 164 H 164 H (75-99) mg/dL Troponin I (0.000-0.034) ng/mL 10/28/18 Range/Units 06:22 RBC (4.30-5.90) m/uL Hgb (13.0-17.5) gm/dL Hct (39.0-53.0) % Plt Count (150-450) k/uL Lymphocytes # (1.0-4.8) k/uL BUN 63 H (9-20) mg/dL Creatinine 5.91 H (0.66-1.25) mg/dL Glucose 166 H (74-99) mg/dL POC Glucose (mg/dL) (75-99) mg/dL Troponin I (0.000-0.034) ng/mL Assessment and Plan Assessment: Assessment #1 congestive heart failure exacerbation probably related to diastolic dysfunction as well as aortic stenosis #2 coronary artery disease and prior coronary artery vascularization. The patie nt underwent stenting of the RCA last year #3 acute on chronic renal failure #4 hypertension #5 dyslipidemia #6 sleep apnea Plan #1 continue the current dose of Lasix IV. Nephrology is on the case #2 wean the patient from Cardizem IV and start him on metoprolol #3 start the patient on oral anticoagulation #4 follow-up with the patient
[2018-10-28] MEDS ORDERED: ENOXAPARIN 40 MG/0.4 ML SYRINGE SQ SCH (09:15)
[2018-10-28] MEDS ORDERED: METOPROLOL TARTRATE 25 MG TAB PO STA (10:19)
[2018-10-28] MEDS: FUROSEMIDE 10 MG/ML 2 ML VIAL IV SCH ×2 (10:24→20:13)
[2018-10-28] MEDS: APIXABAN 5 MG TAB PO SCH ×2 (10:24→21:19)
--- NOTE | 2018-10-28 11:39 | P.PN ---
Subjective Patient is seen in follow-up for acute kidney injury on chronic kidney disease. Patient has chronic kidney disease stage III most likely secondary to diabetic kidney disease. Patient's creatinine in December 2017 in May 2018 was near 1.4. Peaked at 6.36 this admission and is down to 5.91 today. He is maintained on IV Lasix 40 mg twice daily and is nonoliguric. Urine output documented as far liters in the last 24 hours. Patient is maintained on Lopressor for A. fib. Oral intake is good. No vomiting or diarrhea. Denies chest pain or shortness of breath. Vital signs are stable. General: The patient appeared well nourished and normally developed. HEENT: Head exam is unremarkable. Neck is without jugular venous distension. LUNGS: Lungs are clear to auscultation and percussion. Breath sounds decreased. HEART: Rate and Rhythm are regular. First and second heart sounds normal. No murmurs, rubs or gallops. ABDOMEN: Abdominal exam reveals normal bowel sounds. Non-tender and non- distended. No evidence of peritonitis. EXTREMITITES: 1+ edema. Objective - Vital Signs Vital signs: Vital Signs Temp 98.6 F 10/28/18 08:00 Pulse 84 10/28/18 10:26 Resp 20 10/28/18 08:00 BP 170/73 10/28/18 08:00 Pulse Ox 94 L 10/28/18 10:26 Intake & Output 10/27/18 10/28/18 10/28/18 18:59 06:59 18:59 Intake Total 592 230 Output Total 3100 900 900 Balance -9936 -982 -355 Weight 115.9 kg Intake: Oral 592 230 Output: Urine 3100 900 900 Other: Voiding Method Indwelling Catheter Indwelling Catheter - Labs CBC & Chem 7: 10/28/18 06:22 10/28/18 06:22 Labs: Abnormal Lab Results - Last 24 Hours (Table) 10/27/18 10/27/18 10/27/18 Range/Units 11:44 17:06 21:13 RBC (4.30-5.90) m/uL Hgb (13.0-17.5) gm/dL Hct (39.0-53.0) % Plt Count (150-450) k/uL Lymphocytes # (1.0-4.8) k/uL BUN (9-20) mg/dL Creatinine (0.66-1.25) mg/dL Glucose (74-99) mg/dL POC Glucose (mg/dL) 143 H 218 H 164 H (75-99) mg/dL Troponin I (0.000-0.034) ng/mL 10/28/18 10/28/18 10/28/18 Range/Units 06:21 06:22 06:22 RBC 3.85 L (4.30-5.90) m/uL Hgb 10.3 L (13.0-17.5) gm/dL Hct 31.7 L (39.0-53.0) % Plt Count 126 L (150-450) k/uL Lymphocytes # 0.6 L (1.0-4.8) k/uL BUN 63 H (9-20) mg/dL Creatinine 5.91 H (0.66-1.25) mg/dL Glucose 166 H (74-99) mg/dL POC Glucose (mg/dL) 164 H (75-99) mg/dL Troponin I (0.000-0.034) ng/mL 10/28/18 Range/Units 06:22 RBC (4.30-5.90) m/uL Hgb (13.0-17.5) gm/dL Hct (39.0-53.0) % Plt Count (150-450) k/uL Lymphocytes # (1.0-4.8) k/uL BUN (9-20) mg/dL Creatinine (0.66-1.25) mg/dL Glucose (74-99) mg/dL POC Glucose (mg/dL) (75-99) mg/dL Troponin I 0.035 H* (0.000-0.034) ng/mL Assessment and Plan Plan: Assessment: 1. Acute kidney injury secondary to ATN secondary to hemodynamic instability, cardiorenal syndrome as well as use of nonsteroidals and hemodynamic instability. Creatinine peaked at 6.36 this admission is 5.91 today. 2. Chronic kidney disease stage III most likely secondary to diabetic kidney disease. Patient's creatinine in December 2017 in May 2018 was near 1.4. Rule out GN. 3. Volume overload. 4. A. fib. Cardiology following. 5. Mild hyperkalemia secondary to acute kidney injury. Resolved. 6. Metabolic acidosis secondary to acute kidney injury maintained on oral sodium bicarbonate. Better. 7. Hypertension with chronic kidney disease. Blood pressure little high this morning. Lopressor added today. 8. Diabetes mellitus. Plan: Maintain Lasix 40 mg IV twice daily. Check serologies. Check renal ultrasound. Avoid nephrotoxins. Continue to monitor renal function and urine output. No urgent need for renal replacement therapy at this time. Continue to assess on day-to-day basis.
--- NOTE | 2018-10-28 11:40 | US ---
EXAMINATION TYPE: US kidneys/renal and bladder DATE OF EXAM: 10/28/2018 COMPARISON: CT CLINICAL HISTORY: wendy. EXAM MEASUREMENTS: Right Kidney: 13.1 x 6.0 x 5.6 cm Left Kidney: 12.4 x 6.4 x 5.0 cm Right Kidney: upper pole cysts, largest measures 1.9 x 1.8 x 1.7 cm Left Kidney: Exophytic cyst measures 2.1 x 1.4 x 2.3 cm Bladder: not seen, patient has a catheter Bilateral Jets seen: no There is no evidence for hydronephrosis at this point in time. No nephrolithiasis is seen. No solid masses are identified. The urinary bladder is anechoic. Bilateral ureteral jets are seen. IMPRESSION: Renal cystic changes noted.
[2018-10-28 11:46] LABS: Glucose,Whole Blood 199 mg/dL (75-99)
[2018-10-28] MEDS: ASPIRIN 81 MG PO SCH (12:24)
[2018-10-28] MEDS: HYDROcodone/APAP 5-325MG 1 EACH TAB PO PRN (15:15)
--- NOTE | 2018-10-28 15:27 | P.PN ---
Subjective Progress Note Date: 10/28/18 Principal diagnosis: Dyspnea secondary to fluid volume overload The patient is seen today 10/27/2018 in follow-up on the selective care unit. He is awake and alert in no acute distress. Resting comfortably in bed. Currently maintaining O2 saturations in the upper 90s on 6 L high flow nasal cannula alternating with BiPAP. He is breathing easier today as compared to yesterday. White count 6.7. Hemoglobin 9.3. Creatinine 6.36. He remains on DuoNeb inhalations. An antibiotics in the form of ceftriaxone. He is on IV Lasix 40 mg every 12 hours. Nephrology is on the case. Chest x-ray shows significant improvement in the left lower lobe infiltrate/effusion. The patient is seen today 10/28/2018 in follow-up on the selective care unit. He is currently sitting up at the bedside. Awake and alert in no acute distress. He is currently off the BiPAP. Maintaining O2 saturations in the mid 90s on 2 L/m per nasal cannula. He's been afebrile. He was 89% O2 saturation on room air today. White count 6.2. Hemoglobin 10.3. Creatinine 5.91. Troponin 0.035. He remains on DuoNeb inhalations, IV diuretics, antibiotics in the form of ceftriaxone, anticoagulated with Eliquis. Objective - Vital Signs Vital signs: Vital Signs Temp 97.8 F 10/28/18 15:16 Pulse 69 10/28/18 15:16 Resp 20 10/28/18 15:16 BP 138/69 10/28/18 15:16 Pulse Ox 95 10/28/18 15:16 Intake & Output 10/27/18 10/28/18 10/28/18 18:59 06:59 18:59 Intake Total 592 490 Output Total 3100 900 900 Balance -3012 -900 -410 Weight 115.9 kg Intake: IV 80 Diltiazem 125 mg In 30 Sodium Chloride 0.9% 100 ml @ 5 MG/HR 5 mls/hr IV .Q24H NURIS Rx#:[id number] cefTRIAXone 1 gm In 50 Sodium Chloride 0.9% 50 ml @ 100 mls/hr IVPB Q24HR NURIS Rx#:[id number] Oral 592 410 Output: Urine 3100 900 900 Other: Voiding Method Indwelling Catheter Indwelling Catheter Indwelling Catheter - Exam GENERAL EXAM: Alert, comfortable in no apparent distress. Down to 2 L high flow nasal cannula. HEAD: Normocephalic. EYES: Normal reaction of pupils, equal size. NOSE: Clear with pink turbinates. THROAT: No erythema or exudates. NECK: No masses, no JVD. CHEST: No chest wall deformity. LUNGS: Equal air entry with crackles in the left lung base. CVS: S1 and S2 normal with no audible murmur, regular rhythm. ABDOMEN: No hepatosplenomegaly, normal bowel sounds, no guarding or rigidity. SPINE: No scoliosis or deformity SKIN: No rashes CENTRAL NERVOUS SYSTEM: No focal deficits, tone is normal in all 4 extremities. EXTREMITIES: There is 1-2+ peripheral edema. No clubbing, no cyanosis. Per ipheral pulses are intact. - Labs CBC & Chem 7: 10/28/18 06:22 10/28/18 06:22 Labs: Abnormal Lab Results - Last 24 Hours (Table) 10/27/18 10/27/18 10/28/18 Range/Units 17:06 21:13 06:21 RBC (4.30-5.90) m/uL Hgb (13.0-17.5) gm/dL Hct (39.0-53.0) % Plt Count (150-450) k/uL Lymphocytes # (1.0-4.8) k/uL BUN (9-20) mg/dL Creatinine (0.66-1.25) mg/dL Glucose (74-99) mg/dL POC Glucose (mg/dL) 218 H 164 H 164 H (75-99) mg/dL Troponin I (0.000-0.034) ng/mL 10/28/18 10/28/18 10/28/18 Range/Units 06:22 06:22 06:22 RBC 3.85 L (4.30-5.90) m/uL Hgb 10.3 L (13.0-17.5) gm/dL Hct 31.7 L (39.0-53.0) % Plt Count 126 L (150-450) k/uL Lymphocytes # 0.6 L (1.0-4.8) k/uL BUN 63 H (9-20) mg/dL Creatinine 5.91 H (0.66-1.25) mg/dL Glucose 166 H (74-99) mg/dL POC Glucose (mg/dL) (75-99) mg/dL Troponin I 0.035 H* (0.000-0.034) ng/mL 10/28/18 Range/Units 11:38 RBC (4.30-5.90) m/uL Hgb (13.0-17.5) gm/dL Hct (39.0-53.0) % Plt Count (150-450) k/uL Lymphocytes # (1.0-4.8) k/uL BUN (9-20) mg/dL Creatinine (0.66-1.25) mg/dL Glucose (74-99) mg/dL POC Glucose (mg/dL) 199 H (75-99) mg/dL Troponin I (0.000-0.034) ng/mL Assessment and Plan Assessment: Impression: #1 Acute on chronic hypoxic respiratory failure secondary to acute fluid volume overload secondary to acute renal failure secondary to acute tubular necrosis as well as increased use of nonsteroidals. #2 Small bowel ileus. #3 History of nephrolithiasis. #4 History of chronic obstructive pulmonary disease. #5 History of heavy tobacco use. #6 History of CVA. #7 Diabetes mellitus. #8 Gastroesophageal reflux disease. #9 History of hypertension. #10 Degenerative joint disease. #11 History of obstructive sleep apnea, noncompliant with CPAP. #12 Coronary artery disease with previous stent placement. Plan: The patient was seen and evaluated by Dr. Shah. The patient is improving from the pulmonary standpoint. Down to 2 L/m per nasal cannula alternating with BiPAP. Renal function slight improvement. Remains on IV diuretics. Remains on sodium bicarb. We will continue to follow and make further recommendations based on his clinical status. I, the cosigning physician, performed a history & physical examination of the patient. Lungs sounds crackles in the left lung base Maintaining good O2 saturations in the 90s on 2 L/m per nasal cannula. I discussed the assessment and plan of care with my nurse practitioner, Colleen Amaya. I attest to the above note as dictated by her.
--- NOTE | 2018-10-28 16:54 | P.PN ---
Subjective Progress Note Date: 10/28/18 This is 68-year-old gentleman admitted with acute renal failure, acute metabolic encephalopathy, acute hypoxic respiratory failure, acute left pleural effusion and multiple other medical issues. Telemetry reporting paroximal A. fib, during the night ,currently sinus rhythm. Complains of bilateral flank pain, left worse than the right, the patient with history of kidney stones. Maintained on IV fluids with renal function improving, creatinine down to 5.91. Continues on nebulized bronchodilators, ceftriaxone. Diuresing well on Lasix IV push with 24-hour I&O reflecting a negative fluid balance. Maintaining O2 sats in the 90s on 2 L high flow nasal cannula. Afebrile. Normal WBC. Troponin 0.035. Objective - Vital Signs Vital signs: Vital Signs Temp 97.8 F 10/28/18 15:16 Pulse 92 10/28/18 16:29 Resp 20 10/28/18 16:00 BP 138/69 10/28/18 15:16 Pulse Ox 97 10/28/18 16:16 Intake & Output 10/27/18 10/28/18 10/28/18 18:59 06:59 18:59 Intake Total 592 490 Output Total 3100 900 2500 Weight 115.9 kg Intake: IV 80 Diltiazem 125 mg In 30 Sodium Chloride 0.9% 100 ml @ 5 MG/HR 5 mls/hr IV .Q24H NURIS Rx#:[id number] cefTRIAXone 1 gm In 50 Sodium Chloride 0.9% 50 ml @ 100 mls/hr IVPB Q24HR NURIS Rx#:[id number] Oral 592 410 Output: Urine 3100 900 2500 Other: Voiding Method Indwelling Catheter Indwelling Catheter Indwelling Catheter - Exam PHYSICAL EXAM: VITAL SIGNS: [As above] GENERAL: Sitting up in bed, no acute distress HEENT: Conjunctivae normal. eyes normal. NECK: No JVD. No thyroid enlargement. No LNs CARDIOVASCULAR: S1, S2 regular. Systolic murmur. RESPIRATION: Breath sounds diminished in the bases. No rhonchi, left basilar crackles. No wheezing ABDOMEN: Soft, nontender . No guarding. no masses palpable. No ascites, No hepatosplenomegaly.Bowel sounds heard. LEGS: Positive edema. No clubbing, no cyanosis PSYCHIATRY: Alert and oriented X3, mood and affect normal. NERVOUS SYSTEM: Cranial N 2-12 grossly normal. Moves all 4 limbs. Diffuse weakness, No focal deficits. Strength and sensation grossly intact.. Skin: no lesions, no rash - Labs CBC & Chem 7: 10/28/18 06:22 10/28/18 06:22 Labs: Abnormal Lab Results - Last 24 Hours (Table) 10/27/18 10/27/18 10/28/18 Range/Units 17:06 21:13 06:21 RBC (4.30-5.90) m/uL Hgb (13.0-17.5) gm/dL Hct (39.0-53.0) % Plt Count (150-450) k/uL Lymphocytes # (1.0-4.8) k/uL BUN (9-20) mg/dL Creatinine (0.66-1.25) mg/dL Glucose (74-99) mg/dL POC Glucose (mg/dL) 218 H 164 H 164 H (75-99) mg/dL Troponin I (0.000-0.034) ng/mL 10/28/18 10/28/18 10/28/18 Range/Units 06:22 06:22 06:22 RBC 3.85 L (4.30-5.90) m/uL Hgb 10.3 L (13.0-17.5) gm/dL Hct 31.7 L (39.0-53.0) % Plt Count 126 L (150-450) k/uL Lymphocytes # 0.6 L (1.0-4.8) k/uL BUN 63 H (9-20) mg/dL Creatinine 5.91 H (0.66-1.25) mg/dL Glucose 166 H (74-99) mg/dL POC Glucose (mg/dL) (75-99) mg/dL Troponin I 0.035 H* (0.000-0.034) ng/mL 10/28/18 Range/Units 11:38 RBC (4.30-5.90) m/uL Hgb (13.0-17.5) gm/dL Hct (39.0-53.0) % Plt Count (150-450) k/uL Lymphocytes # (1.0-4.8) k/uL BUN (9-20) mg/dL Creatinine (0.66-1.25) mg/dL Glucose (74-99) mg/dL POC Glucose (mg/dL) 199 H (75-99) mg/dL Troponin I (0.000-0.034) ng/mL Assessment and Plan Assessment: -Acute renal failure, possibly prerenal secondary to ATN, cardiorenal syndrome and use of NSAIDs. Chronic kidney disease, stage III secondary to diabetic kidney disease, baseline 1.4. -Change in mental status, acute metabolic encephalopathy secondary to the above, and multifactorial -Acute on chronic hypoxic respiratory failure secondary to fluid overload -Acute left pleural effusion -Paroximal atrial fibrillation, new onset -Ileus -Anemia, of chronic disease -Thrombocytopenia -History of nephrolithiasis -COPD -History of CVA, TIA -Diabetes mellitus type 2 -Gastroesophageal reflux disease -Hypertension -CAD, history of stent -Sleep apnea, wears CPAP occasionally -History of anxiety, depression -History of nicotine dependence -Obesity, BMI 37.7 -Metabolic acidosis secondary to acute renal failure, improving Plan: Continue on current medication regime , sodium bicarb, monitoring and symptomatic treatment. Maintain gentle IV fluid hydration. Diuretics as per nephrology Renal ultrasound completed, pending. Close monitoring of renal function with repeat labs ordered for a.m. Eliquis added for anticoagulation. Case management to verify outpatient RX coverage. Increase ambulation as tolerated. PT/OT. Further recommendations to follow. The impression and plan of care has been dictated as directed. : I performed a history and examination of this patient, discussed the same with the dictator. I agree with the dictator's note ,documented as a scribe. Any additional findings or plans will be noted.
[2018-10-28 17:21] LABS: Glucose,Whole Blood 133 mg/dL (75-99)
[2018-10-28 19:19] LABS: DNA Double-Stranded NEGATIVE (NEGATIVE)
[2018-10-28] MEDS: METOPROLOL TARTRATE 25 MG TAB PO SCH (20:12)
[2018-10-28 20:46] LABS: Glucose,Whole Blood 201 mg/dL (75-99)
[2018-10-28] MEDS: MORPHINE SULFATE 4 MG/ML SYRINGE IVP PRN (22:21)
[2018-10-29] MEDS: MORPHINE SULFATE 4 MG/ML SYRINGE IVP PRN ×4 (02:31→21:45)
[2018-10-29] MEDS: ACETAMINOPHEN TAB 325 MG TAB PO PRN (05:55)
[2018-10-29 06:17] LABS: Calcium 8.7 mg/dL (8.4-10.2); Magnesium 1.5 mg/dL (1.6-2.3); Potassium 4.1 mmol/L (3.5-5.1)
[2018-10-29 06:33] LABS: Glucose,Whole Blood 144 mg/dL (75-99)
[2018-10-29] MEDS: INSULIN ASPART (NovoLOG) 100 UNIT/ML VIAL SQ SCH ×4 (06:43→21:42)
[2018-10-29] MEDS: PANTOPRAZOLE 40 MG TABLET PO SCH (06:43)
[2018-10-29] MEDS: IPRATROPIUM-ALBUTEROL 3 ML NEB INHALATION PRN ×3 (07:24→16:08)
[2018-10-29 08:10] LABS: Basophils % (A) 1 %; Eosinophils # (A) 0.4 k/uL (0-0.7); Eosinophils % (A) 6 %; HCT 35.2 % (39.0-53.0); HGB 11.3 gm/dL (13.0-17.5); Lymphocytes # (A) 0.9 k/uL (1.0-4.8); Lymphocytes % (A) 14 %; MCH 26.4 pg (25.0-35.0); MCHC 32.1 g/dL (31.0-37.0); MCV 82.4 fL (80.0-100.0); Mean Platelet Volume 8.1; Monocytes # (A) 0.6 k/uL (0-1.0); Monocytes % (A) 9 %; Neutrophils # (A) 4.3 k/uL (1.3-7.7); Neutrophils % (A) 68 %; Platelet Count 159 k/uL (150-450); RBC 4.27 m/uL (4.30-5.90); RDW 14.9 % (11.5-15.5); WBC 6.3 k/uL (3.8-10.6)
[2018-10-29] MEDS: ASPIRIN 81 MG PO SCH (09:41)
[2018-10-29] MEDS: APIXABAN 5 MG TAB PO SCH ×2 (09:41→12:36)
[2018-10-29] MEDS: CLOPIDOGREL 75 MG TAB PO SCH (09:41)
[2018-10-29] MEDS: METOPROLOL TARTRATE 25 MG TAB PO SCH ×2 (09:45→20:08)
[2018-10-29] MEDS: FUROSEMIDE 10 MG/ML 2 ML VIAL IV SCH ×2 (09:45→20:08)
[2018-10-29] MEDS: amLODIPine 10 MG TAB PO SCH (09:45)
[2018-10-29] MEDS: SODIUM BICARBONATE TAB 650 MG TAB PO SCH ×2 (09:45→20:08)
[2018-10-29] MEDS: cloNIDine HCL 0.1 MG TAB PO SCH (09:45)
[2018-10-29] MEDS: hydrALAZINE HCL 25 MG TAB PO SCH (09:46)
--- NOTE | 2018-10-29 09:57 | P.PN ---
Subjective Progress Note Date: 10/29/18 Principal diagnosis: Congestive heart failure secondary to diastolic dysfunction This is a pleasant 68-year-old gentleman who I follow in the office as an outpatient with a past medical history significant for coronary artery disease where he underwent in December 2017 successful stenting of the proximal, mid, and distal right coronary artery, diabetes, hypertension, dyslipidemia, and history of carotid disease with prior carotid revascularization long time ago, was admitted to the hospital with congestive heart failure exacerbation as well as acute on chronic renal failure. For the last few days, the patient was not feeling well. Initially he thought he was experiencing symptoms of kidney stone where he experienced in the past. He was having symptoms of low back pain and flank pain. But when I spoke with his was bedside and with further details he was experiencing symptoms of progressive dyspnea. No clear-cut symptoms of orthopnea or PND. But he did the flow bilateral lower extremities edema and he stated that he gained about 5 pounds within the last few days. No chest pain or chest discomfort, fever, chills, cough, or sputum. No dizziness or light headedness, heart racing or fluttering, or syncope. He stated that he was experiencing symptoms of diarrhea as well as. The BNP came in to be around 11,000. The chest x-ray showed findings consistent with left pleural effusion as well as cardiomegaly and pulmonary vascular congestions. Beside that, the patient was found to be in acute renal failure. The creatinine was around 5. Nephrology consult was obtained. Currently the patient is on Lasix IV for the congestive heart failure. He is also known to have aortic stenosis based on an echocardiogram was performed in 2018. Please note that the patient clearly stated that he was not compliant with his diet and he was eating everything in cluding salts. On follow-up with the patient today, October 292018, the patient overall is doing better clinically. His shortness of breath is better. The lower extremities edema is better as well. The creatinine has been trending down. He continues to be on Lasix IV and nephrology continues to follow-up with the patient. He was started yesterday on oral anticoagulation with Eliquis but later on during the day he did have some black stool. We are checking for blood in the stool. The anticoagulation is on hold at this point. Beside that I would stop the Plavix. Objective - Vital Signs Vital signs: Vital Signs Temp 98.6 F 10/29/18 08:00 Pulse 83 10/29/18 08:00 Resp 16 10/29/18 08:00 BP 170/84 10/29/18 08:00 Pulse Ox 95 10/29/18 08:00 Intake & Output 10/28/18 10/29/18 10/29/18 18:59 06:59 18:59 Intake Total 690 480 Output Total 2500 2200 Balance -1810 -2200 480 Weight 114.1 kg Intake: IV 80 Diltiazem 125 mg In 30 Sodium Chloride 0.9% 100 ml @ 5 MG/HR 5 mls/hr IV .Q24H NURIS Rx#:[id number] cefTRIAXone 1 gm In 50 Sodium Chloride 0.9% 50 ml @ 100 mls/hr IVPB Q24HR NURIS Rx#:[id number] Oral 610 480 Output: Urine 2500 2200 Other: Voiding Method Indwelling Catheter Indwelling Catheter # Voids 1 - Constitutional General appearance: Present: no acute distress - Respiratory Respiratory: bilateral: diminished - Cardiovascular Heart sounds: normal: S1, S2 Abnormal Heart Sounds: Present: systolic murmur - Labs CBC & Chem 7: 10/29/18 05:32 10/29/18 05:32 Labs: Abnormal Lab Results - Last 24 Hours (Table) 10/28/18 10/28/18 10/28/18 Range/Units 06:22 11:38 16:55 RBC (4.30-5.90) m/uL Hgb (13.0-17.5) gm/dL Hct (39.0-53.0) % Lymphocytes # (1.0-4.8) k/uL BUN (9-20) mg/dL Creatinine (0.66-1.25) mg/dL Glucose (74-99) mg/dL POC Glucose (mg/dL) 199 H 133 H (75-99) mg/dL Magnesium (1.6-2.3) mg/dL Troponin I 0.035 H* (0.000-0.034) ng/mL 10/28/18 10/29/18 10/29/18 Range/Units 20:44 05:32 05:32 RBC 4.27 L (4.30-5.90) m/uL Hgb 11.3 L (13.0-17.5) gm/dL Hct 35.2 L (39.0-53.0) % Lymphocytes # 0.9 L (1.0-4.8) k/uL BUN 63 H (9-20) mg/dL Creatinine 5.55 H (0.66-1.25) mg/dL Glucose 145 H (74-99) mg/dL POC Glucose (mg/dL) 201 H (75-99) mg/dL Magnesium 1.5 L (1.6-2.3) mg/dL Troponin I (0.000-0.034) ng/mL 10/29/18 Range/Units 06:33 RBC (4.30-5.90) m/uL Hgb (13.0-17.5) gm/dL Hct (39.0-53.0) % Lymphocytes # (1.0-4.8) k/uL BUN (9-20) mg/dL Creatinine (0.66-1.25) mg/dL Glucose (74-99) mg/dL POC Glucose (mg/dL) 144 H (75-99) mg/dL Magnesium (1.6-2.3) mg/dL Troponin I (0.000-0.034) ng/mL Assessment and Plan Assessment: Assessment #1 congestive heart failure exacerbation probably related to diastolic dysfunction as well as aortic stenosis #2 coronary artery disease and prior coronary artery vascularization. The patient underwent stenting of the RCA last year #3 acute on chronic renal failure #4 hypertension #5 dyslipidemia #6 sleep apnea Plan #1 DC Plavix #2 hold Eliquis till we have the results of the blood in the stool #3 continue metoprolol #4 continue Lasix IV. Nephrology is on the case #5 the kidney function has been trending down #6 follow-up with the patient
--- NOTE | 2018-10-29 10:31 | P.PN ---
Subjective Patient is seen in follow-up for acute kidney injury on chronic kidney disease. Patient has chronic kidney disease stage III most likely secondary to diabetic kidney disease. Patient's creatinine in December 2017 in May 2018 was near 1.4. It peaked at 6.36 this admission and is down to 5.55 today. He is maintained on IV Lasix 40 mg twice daily and is nonoliguric. Urine output documented as 4.7 liters in the last 24 hours. Patient is maintained on Lopressor and anticoagulation for A. fib. Developed black stools last night. Hemoglobin is stable. Oral intake is good. Denies chest pain or shortness of breath. Vital signs are stable. General: The patient appeared well nourished and normally developed. HEENT: Head exam is unremarkable. Neck is without jugular venous distension. LUNGS: Lungs are clear to auscultation and percussion. Breath sounds decreased. HEART: Rate and Rhythm are regular. First and second heart sounds normal. No murmurs, rubs or gallops. ABDOMEN: Abdominal exam reveals normal bowel sounds. Non-tender and non- distended. No evidence of peritonitis. EXTREMITITES: 1+ edema. Objective - Vital Signs Vital signs: Vital Signs Temp 98.6 F 10/29/18 08:00 Pulse 83 10/29/18 08:00 Resp 16 10/29/18 08:00 BP 170/84 10/29/18 08:00 Pulse Ox 95 10/29/18 08:00 Intake & Output 10/28/18 10/29/18 10/29/18 18:59 06:59 18:59 Intake Total 690 480 Output Total 2500 2200 Balance -1810 -2200 480 Weight 114.1 kg Intake: IV 80 Diltiazem 125 mg In 30 Sodium Chloride 0.9% 100 ml @ 5 MG/HR 5 mls/hr IV .Q24H NURIS Rx#:[id number] cefTRIAXone 1 gm In 50 Sodium Chloride 0.9% 50 ml @ 100 mls/hr IVPB Q24HR NURIS Rx#:[id number] Oral 610 480 Output: Urine 2500 2200 Other: Voiding Method Indwelling Catheter Indwelling Catheter # Voids 1 - Labs CBC & Chem 7: 10/29/18 05:32 10/29/18 05:32 Labs: Abnormal Lab Results - Last 24 Hours (Table) 10/28/18 10/28/18 10/28/18 Range/Units 11:38 16:55 20:44 RBC (4.30-5.90) m/uL Hgb (13.0-17.5) gm/dL Hct (39.0-53.0) % Lymphocytes # (1.0-4.8) k/uL BUN (9-20) mg/dL Creatinine (0.66-1.25) mg/dL Glucose (74-99) mg/dL POC Glucose (mg/dL) 199 H 133 H 201 H (75-99) mg/dL Magnesium (1.6-2.3) mg/dL 10/29/18 10/29/18 10/29/18 Range/Units 05:32 05:32 06:33 RBC 4.27 L (4.30-5.90) m/uL Hgb 11.3 L (13.0-17.5) gm/dL Hct 35.2 L (39.0-53.0) % Lymphocytes # 0.9 L (1.0-4.8) k/uL BUN 63 H (9-20) mg/dL Creatinine 5.55 H (0.66-1.25) mg/dL Glucose 145 H (74-99) mg/dL POC Glucose (mg/dL) 144 H (75-99) mg/dL Magnesium 1.5 L (1.6-2.3) mg/dL Assessment and Plan Plan: Assessment: 1. Acute kidney injury secondary to ATN secondary to hemodynamic instability, cardiorenal syndrome as well as use of nonsteroidals. Creatinine peaked at 6.36 this admission is 5.55 today. No evidence of hydronephrosis noted on kidney ultrasound. 2. Chronic kidney disease stage III most likely secondary to diabetic kidney disease. Patient's creatinine in December 2017 in May 2018 was near 1.4. Rule out GN. 3. Volume overload. Improving with diuresis. 4. A. fib. Cardiology following. 5. Mild hyperkalemia secondary to acute kidney injury. Resolved. 6. Metabolic acidosis secondary to acute kidney injury maintained on oral sodium bicarbonate. Resolved. 7. Hypertension with chronic kidney disease. 8. Diabetes mellitus. 9. Hypomagnesemia secondary to diuresis. Plan: Maintain Lasix 40 mg IV twice daily. Follow-up serologies. So far negative. Avoid nephrotoxins. Continue to monitor renal function and urine output. No urgent need for renal replacement therapy at this time. Continue to assess on day-to-day basis. Replace magnesium. 2 g IV today. Decrease sodium bicarbonate to 650 mg twice daily.
[2018-10-29] MEDS ORDERED: Magnesium Replacement Protocol 1 EACH MISC MISCELLANE PRN (10:49)
[2018-10-29] MEDS: MAGNESIUM SULFATE-D5W PMX 1 GM in DEXTROSE/WATER 1 100ML.BAG IVPB SCH ×2 (10:54→12:39)
[2018-10-29 11:47] LABS: Glucose,Whole Blood 187 mg/dL (75-99)
[2018-10-29 12:01] LABS: C-ANCA <1:20 Titer (<1:20)
--- NOTE | 2018-10-29 13:00 | P.PN ---
Subjective Progress Note Date: 10/29/18 Principal diagnosis: Dyspnea secondary to fluid volume overload The patient is seen today 10/27/2018 in follow-up on the selective care unit. He is awake and alert in no acute distress. Resting comfortably in bed. Currently maintaining O2 saturations in the upper 90s on 6 L high flow nasal cannula alternating with BiPAP. He is breathing easier today as compared to yesterday. White count 6.7. Hemoglobin 9.3. Creatinine 6.36. He remains on DuoNeb inhalations. An antibiotics in the form of ceftriaxone. He is on IV Lasix 40 mg every 12 hours. Nephrology is on the case. Chest x-ray shows significant improvement in the left lower lobe infiltrate/effusion. The patient is seen today 10/28/2018 in follow-up on the selective care unit. He is currently sitting up at the bedside. Awake and alert in no acute distress. He is currently off the BiPAP. Maintaining O2 saturations in the mid 90s on 2 L/m per nasal cannula. He's been afebrile. He was 89% O2 saturation on room air today. White count 6.2. Hemoglobin 10.3. Creatinine 5.91. Troponin 0.035. He remains on DuoNeb inhalations, IV diuretics, antibiotics in the form of ceftriaxone, anticoagulated with Eliquis. The patient is seen today 10/29/2018 in follow-up on the selective care unit. Her only resting quite comfortably in bed. Laying flat. On room air. Hemodynamically stable. Afebrile. White count 6.3. Hemoglobin 11.3. Creatinine 5.55. He remains on bronchodilators, IV diuretics, ceftriaxone. Anticoagulated with Eliquis. Objective - Vital Signs Vital signs: Vital Signs Temp 98.6 F 10/29/18 08:00 Pulse 72 10/29/18 12:01 Resp 16 10/29/18 08:00 BP 170/84 10/29/18 08:00 Pulse Ox 95 10/29/18 08:00 Intake & Output 10/28/18 10/29/18 10/29/18 18:59 06:59 18:59 Intake Total 690 480 Output Total 2500 2200 1450 Balance -1810 -2200 -970 Weight 114.1 kg Intake: IV 80 Diltiazem 125 mg In 30 Sodium Chloride 0.9% 100 ml @ 5 MG/HR 5 mls/hr IV .Q24H NURIS Rx#:[id number] cefTRIAXone 1 gm In 50 Sodium Chloride 0.9% 50 ml @ 100 mls/hr IVPB Q24HR NURIS Rx#:[id number] Oral 610 480 Output: Urine 2500 2200 1450 Other: Voiding Method Indwelling Catheter Indwelling Catheter # Voids 1 - Exam GENERAL EXAM: Alert, comfortable in no apparent distress. On room air. HEAD: Normocephalic. EYES: Normal reaction of pupils, equal size. NOSE: Clear with pink turbinates. THROAT: No erythema or exudates. NECK: No masses, no JVD. CHEST: No chest wall deformity. LUNGS: Equal air entry with crackles in the left lung base. CVS: S1 and S2 normal with no audible murmur, regular rhythm. ABDOMEN: No hepatosplenomegaly, normal bowel sounds, no guarding or rigidity. SPINE: No scoliosis or deformity SKIN: No rashes CENTRAL NERVOUS SYSTEM: No focal deficits, tone is normal in all 4 extremities. EXTREMITIES: There is 1-2+ peripheral edema. No clubbing, no cyanosis. Peripheral pulses are intact. - Labs CBC & Chem 7: 10/29/18 05:32 10/29/18 05:32 Labs: Abnormal Lab Results - Last 24 Hours (Table) 10/28/18 10/28/18 10/29/18 Range/Units 16:55 20:44 05:32 RBC (4.30-5.90) m/uL Hgb (13.0-17.5) gm/dL Hct (39.0-53.0) % Lymphocytes # (1.0-4.8) k/uL BUN 63 H (9-20) mg/dL Creatinine 5.55 H (0.66-1.25) mg/dL Glucose 145 H (74-99) mg/dL POC Glucose (mg/dL) 133 H 201 H (75-99) mg/dL Magnesium 1.5 L (1.6-2.3) mg/dL 10/29/18 10/29/18 10/29/18 Range/Units 05:32 06:33 11:43 RBC 4.27 L (4.30-5.90) m/uL Hgb 11.3 L (13.0-17.5) gm/dL Hct 35.2 L (39.0-53.0) % Lymphocytes # 0.9 L (1.0-4.8) k/uL BUN (9-20) mg/dL Creatinine (0.66-1.25) mg/dL Glucose (74-99) mg/dL POC Glucose (mg/dL) 144 H 187 H (75-99) mg/dL Magnesium (1.6-2.3) mg/dL Assessment and Plan Assessment: Impression: #1 Acute on chronic hypoxic respiratory failure secondary to acute fluid volume overload secondary to acute renal failure secondary to acute tubular necrosis as well as increased use of nonsteroidals. #2 Small bowel ileus. #3 History of nephrolithiasis. #4 History of chronic obstructive pulmonary disease. #5 History of heavy tobacco use. #6 History of CVA. #7 Diabetes mellitus. #8 Gastroesophageal reflux disease. #9 History of hypertension. #10 Degenerative joint disease. #11 History of obstructive sleep apnea, noncompliant with CPAP. #12 Coronary artery disease with previous stent placement. Plan: The patient was seen and evaluated by Dr. Shah. The patient is improving from the pulmonary standpoint. On room air now. Renal function slight improvement. Remains on IV diuretics. Remains on sodium bicarb. We will continue to follow and make further recommendations based on his clinical status. I, the cosigning physician, performed a history & physical examination of the patient. Lungs sounds crackles in the left lung base Maintaining good O2 saturations in the 90s on 2 room air. I discussed the assessment and plan of care with my nurse practitioner, Colleen Amaya. I attest to the above note as dictated by her.
--- NOTE | 2018-10-29 13:39 | P.PN ---
Subjective Progress Note Date: 10/29/18 This is 68-year-old gentleman admitted with acute renal failure, acute metabolic encephalopathy, acute hypoxic respiratory failure, acute left pleural effusion and multiple other medical issues. Telemetry reporting paroximal A. fib, during the night ,currently sinus rhythm. Complains of bilateral flank pain, left worse than the right, the patient with history of kidney stones. Maintained on IV fluids with renal function improving, creatinine down to 5.91. Continues on nebulized bronchodilators, ceftriaxone. Diuresing well on Lasix IV push with 24-hour I&O reflecting a negative fluid balance. Maintaining O2 sats in the 90s on 2 L high flow nasal cannula. Afebrile. Normal WBC. Troponin 0.035. 10/29/2018 Eliquis initiated yesterday ,developed black tarry stools 2 during the night. Hemoglobin currently 11.3. Aspirin, Plavix, Eliquis placed on hold in a patient with recent cardiac stents, December 2017. Plavix actually discontinued as per cardiology. Evaluated by surgery and endoscopy planned for tomorrow. Diuresing well on Lasix IV push as per nephrology. Creatinine slowly improving, down to 5.55. Magnesium 1.5. Objective - Vital Signs Vital signs: Vital Signs Temp 98.6 F 10/29/18 08:00 Pulse 72 10/29/18 12:01 Resp 16 10/29/18 08:00 BP 170/84 10/29/18 08:00 Pulse Ox 95 10/29/18 08:00 Intake & Output 10/28/18 10/29/18 10/29/18 18:59 06:59 18:59 Intake Total 690 720 Output Total 2500 2200 1450 Balance -1810 -2200 -730 Weight 114.1 kg Intake: IV 80 Diltiazem 125 mg In 30 Sodium Chloride 0.9% 100 ml @ 5 MG/HR 5 mls/hr IV .Q24H NURIS Rx#:[id number] cefTRIAXone 1 gm In 50 Sodium Chloride 0.9% 50 ml @ 100 mls/hr IVPB Q24HR NURIS Rx#:[id number] Oral 610 720 Output: Urine 2500 2200 1450 Other: Voiding Method Indwelling Catheter Indwelling Catheter # Voids 1 - Exam PHYSICAL EXAM: VITAL SIGNS: [As above] GENERAL: Sitting up in bed, no acute distress HEENT: Conjunctivae normal. eyes normal. NECK: No JVD. No thyroid enlargement. No LNs CARDIOVASCULAR: S1, S2 regular. Systolic murmur. RESPIRATION: Breath sounds diminished in the bases. No rhonchi, left basilar crackles. No wheezing ABDOMEN: Soft, nontender . No guarding. no masses palpable. Bowel sounds heard. LEGS: Positive edema. No clubbing, no cyanosis PSYCHIATRY: Alert and oriented X3, mood and affect normal. NERVOUS SYSTEM: Cranial N 2-12 grossly normal. Moves all 4 limbs. Diffuse weakness, No focal deficits. Strength and sensation grossly intact.. Skin: no lesions, no rash - Labs CBC & Chem 7: 10/29/18 05:32 10/29/18 05:32 Labs: Abnormal Lab Results - Last 24 Hours (Table) 10/28/18 10/28/18 10/29/18 Range/Units 16:55 20:44 05:32 RBC (4.30-5.90) m/uL Hgb (13.0-17.5) gm/dL Hct (39.0-53.0) % Lymphocytes # (1.0-4.8) k/uL BUN 63 H (9-20) mg/dL Creatinine 5.55 H (0.66-1.25) mg/dL Glucose 145 H (74-99) mg/dL POC Glucose (mg/dL) 133 H 201 H (75-99) mg/dL Magnesium 1.5 L (1.6-2.3) mg/dL 10/29/18 10/29/18 10/29/18 Range/Units 05:32 06:33 11:43 RBC 4.27 L (4.30-5.90) m/uL Hgb 11.3 L (13.0-17.5) gm/dL Hct 35.2 L (39.0-53.0) % Lymphocytes # 0.9 L (1.0-4.8) k/uL BUN (9-20) mg/dL Creatinine (0.66-1.25) mg/dL Glucose (74-99) mg/dL POC Glucose (mg/dL) 144 H 187 H (75-99) mg/dL Magnesium (1.6-2.3) mg/dL Assessment and Plan Assessment: -Acute renal failure, possibly prerenal secondary to ATN, cardiorenal syndrome and use of NSAIDs. Chronic kidney disease, stage III secondary to diabetic kid kezia disease, baseline 1.4. -Change in mental status, acute metabolic encephalopathy secondary to the above, and multifactorial -Acute on chronic hypoxic respiratory failure secondary to fluid overload -Acute left pleural effusion -Paroximal atrial fibrillation, new onset -Ileus -Anemia, of chronic disease -Thrombocytopenia -History of nephrolithiasis -COPD -History of CVA, TIA -Diabetes mellitus type 2 -Gastroesophageal reflux disease -Hypertension -CAD, history of stent, December 2017 -Sleep apnea, wears CPAP occasionally -History of anxiety, depression -History of nicotine dependence -Obesity, BMI 37.7 -Metabolic acidosis secondary to acute renal failure, improving -Hypomagnesemia secondary to diuresing -Dark tarry stools, possible GI bleed, anticoagulation on hold, endoscopy pending. Plan: Continue on current medication regime , beta cliff, sodium bicarb, monitoring and symptomatic treatment. Anticoagulation on hold, endoscopy scheduled for tomorrow .Gentle IV fluid hydration. Diuretics as per nephrology . Magnesium currently being supplemented .Close monitoring of renal function, electrolytes with repeat labs ordered for a.m Increase ambulation as tolerated. PT/OT recommendations pending. The impression and plan of care has been dictated as directed. : I performed a history and examination of this patient, discussed the same with the dictator. I agree with the dictator's note ,documented as a scribe. Any additional findings or plans will be noted.
--- NOTE | 2018-10-29 13:56 | P.GSCN ---
<Yarely Lawson - Last Filed: 10/29/18 13:56> History of Present Illness Consult date: 10/29/18 Reason for Consult: dark tarry stools Requesting physician: Dane Chowdary History of present illness: CHIEF COMPLAINT: dark tarry stools HISTORY OF PRESENT ILLNESS: 68-year-old male admitted to the hospital secondary to renal failure and CHF. Patient has history of cardiac stent placement in December 2017 along with atrial fibrillation. Patient was taking aspirin and plavix. He was also started on Eliquis. He reports a few episodes of dark tarry stools yesterday. Denies further bleeding this morning. Denies nausea or vomiting. He reports chronic lower abdominal pain. He is unsure of etiology of chronic abdominal pain but states it is at baseline currently. Reports eating a regular breakfast and tolerated it well. hemoglobin 11.3 today. patient reports history of EGD with Dr. High in December 2017 secondary to GERD revealing antral gastritis. PAST MEDICAL HISTORY: See list. PAST SURGICAL HISTORY: See list. MEDICATIONS: See list. ALLERGIES: See list. SOCIAL HISTORY: No illicit drug use. REVIEW OF SYSTEMS: CONSTITUTIONAL: Denies fever or chills. HEENT: Denies blurred vision, vision changes, or eye pain. Denies hemoptysis ENDOCRINE: Denies heat or cold intolerance. CARDIOVASCULAR: Denies chest pain or pressure. RESPIRATORY: No shortness of breath. GASTROINTESTINAL: see HPI for pertinent findings NEURO: Denies history of seizures. PSYCH: No depression or suicidal ideation HEMATOLOGIC: Denies bleeding disorders. LYMPHATIC: The patient denies any lumps and bumps around the neck. GENITOURINARY: Denies any blood in urine or increased urinary frequency. MUSCULOSKELETAL: Denies myalgias. Denies joint swelling. Denies decreased range of motion beyond patients baseline. SKIN: Denies pruitis. Denies rash. PHYSICAL EXAM: VITAL SIGNS: Reviewed GENERAL: Well-developed in no acute distress. HEENT: No sclera icterus. Extraocular movements grossly intact. Moist buccal mucosa. Head is atraumatic, normocephalic. Hears conversational speech. No nasal drainage. NECK: Supple without lymphadenopathy. CHEST: Non-labored respirations and equal bilateral excursions. CARDIOVASCULAR: Regular rate with regular rhythm. Palpable 2+ radial pulses. ABDOMEN: Soft. Nondistended. Nontender. Positive bowel sounds. MUSCULOSKELETAL: No clubbing or cyanosis NEUROLOGIC: No focal or lateralizing signs. Cranial nerves II through XII grossly intact. PSYCH: Appropriate affect. Alert and oriented to person, place and time. SKIN: Well perfused. Good skin turgor. ASSESSMENT: 1. Possible GI bleed, patient reports dark tarry stools, hemoglobin stable 2. History of cardiac stenting, December 2017 3. History of EGD, December 2017, revealing antral gastritis 4. History of atrial fibrillation PLAN: 1. Hold Eliquis, Plavix, and Aspirin 2. May continue regular diet today. NPO at midnight 3. Continue to monitor hemoglobin 4. EGD tomorrow (without biopsy secondary to recent anticoagulation) with Dr. Kan 5. If colonoscopy is required, will be performed later this week by Dr. High Nurse practitioner note has been reviewed by physician. Signing provider agrees with the documented findings, assessment, and plan of care. Past Medical History Past Medical History: COPD, CVA/TIA, Diabetes Mellitus, GERD/Reflux, Hypertension, Osteoarthritis (OA), Sleep Apnea/CPAP/BIPAP Additional Past Medical History / Comment(s): having "stomach problems",has cpap History of Any Multi-Drug Resistant Organisms: None Reported Past Surgical History: Cholecystectomy, Heart Catheterization With Stent, Hernia Repair, Orthopedic Surgery Additional Past Surgical History / Comment(s): heart stents x 3,carpal tunnel, right carotid, RIGHT HIP with pin, rt shoulder, umbilical hernia Past Anesthesia/Blood Transfusion Reactions: No Reported Reaction Date of Last Stent Placement:: 12-10-17 Past Psychological History: Anxiety, Depression Smoking Status: Former smoker Past Alcohol Use History: None Reported Additional Past Alcohol Use History / Comment(s): STARTED SMOKING AT AGE 15 QUIT SMOKING AT AGE 35 SMOKED 2-3 PPD Past Drug Use History: None Reported - Past Family History Mother Family Medical History: Cancer Medications and Allergies Home Medications Medication Instructions Recorded Confirmed Type amLODIPine BESYLATE [Amlodipine 10 mg PO QAM 10/26/15 10/25/18 History Besylate] traMADol HCL [Tramadol HCl] 50 mg PO TID PRN 10/26/15 10/25/18 History Atorvastatin [Lipitor] 80 mg PO HS #90 tab 12/11/17 10/25/18 Rx Clopidogrel [Plavix] 75 mg PO DAILY #90 tab 12/11/17 10/25/18 Rx Omeprazole 40 mg PO DAILY #60 capsule. 12/31/17 10/25/18 Rx Citalopram Hydrobromide 40 mg PO DAILY 10/25/18 10/25/18 History [Citalopram HBr] Gabapentin 600 mg PO BID 10/25/18 10/25/18 History Gabapentin [Neurontin] 300 mg PO BID 10/25/18 10/25/18 History HYDROcodone/APAP 5-325MG [Cary 1 tab PO Q6HR PRN 10/25/18 10/25/18 History 5-325] Hydrochlorothiazide [Hydrodiuril] 25 mg PO DAILY 10/25/18 10/25/18 History Ranitidine HCl 150 mg PO BID 10/25/18 10/25/18 History cloNIDine HCL [Catapres] 0.1 mg PO DAILY 10/25/18 10/25/18 History hydrALAZINE HCL [Apresoline] 25 mg PO DAILY 10/25/18 10/25/18 History metFORMIN HCL 1,000 mg PO BID 10/25/18 10/25/18 History Allergies Allergy/AdvReac Type Severity Reaction Status Date / Time neomycin Allergy Itching Verified 10/25/18 17:54 Surgical - Exam Vital Signs Temp Pulse Resp BP Pulse Ox 97.4 F L 69 16 192/92 93 L 10/25/18 10:02 10/25/18 10:02 10/25/18 10:02 10/25/18 10:02 10/25/18 10:02 Results - Labs 10/29/18 05:32 10/29/18 05:32 Abnormal Lab Results - Last 24 Hours (Table) 10/28/18 10/28/18 10/29/18 Range/Units 16:55 20:44 05:32 RBC (4.30-5.90) m/uL Hgb (13.0-17.5) gm/dL Hct (39.0-53.0) % Lymphocytes # (1.0-4.8) k/uL BUN 63 H (9-20) mg/dL Creatinine 5.55 H (0.66-1.25) mg/dL Glucose 145 H (74-99) mg/dL POC Glucose (mg/dL) 133 H 201 H (75-99) mg/dL Magnesium 1.5 L (1.6-2.3) mg/dL 10/29/18 10/29/18 10/29/18 Range/Units 05:32 06:33 11:43 RBC 4.27 L (4.30-5.90) m/uL Hgb 11.3 L (13.0-17.5) gm/dL Hct 35.2 L (39.0-53.0) % Lymphocytes # 0.9 L (1.0-4.8) k/uL BUN (9-20) mg/dL Creatinine (0.66-1.25) mg/dL Glucose (74-99) mg/dL POC Glucose (mg/dL) 144 H 187 H (75-99) mg/dL Magnesium (1.6-2.3) mg/dL Diabetes panel 10/29/18 Range/Units 05:32 Sodium 137 (137-145) mmol/L Potassium 4.1 (3.5-5.1) mmol/L Chloride 98 (98-107) mmol/L Carbon Dioxide 28 (22-30) mmol/L BUN 63 H (9-20) mg/dL Creatinine 5.55 H (0.66-1.25) mg/dL Glucose 145 H (74-99) mg/dL Calcium 8.7 (8.4-10.2) mg/dL Calcium panel 10/29/18 Range/Units 05:32 Calcium 8.7 (8.4-10.2) mg/dL Pituitary panel 10/29/18 Range/Units 05:32 Sodium 137 (137-145) mmol/L Potassium 4.1 (3.5-5.1) mmol/L Chloride 98 (98-107) mmol/L Carbon Dioxide 28 (22-30) mmol/L BUN 63 H (9-20) mg/dL Creatinine 5.55 H (0.66-1.25) mg/dL Glucose 145 H (74-99) mg/dL Calcium 8.7 (8.4-10.2) mg/dL Adrenal panel 10/29/18 Range/Units 05:32 Sodium 137 (137-145) mmol/L Potassium 4.1 (3.5-5.1) mmol/L Chloride 98 (98-107) mmol/L Carbon Dioxide 28 (22-30) mmol/L BUN 63 H (9-20) mg/dL Creatinine 5.55 H (0.66-1.25) mg/dL Glucose 145 H (74-99) mg/dL Calcium 8.7 (8.4-10.2) mg/dL <Beth Kan N - Last Filed: 10/30/18 13:16> History of Present Illness History of present illness: As above. We'll proceed with upper endoscopy for gastrointestinal bleed Surgical - Exam Vital Signs Temp Pulse Resp BP Pulse Ox 97.4 F L 69 16 192/92 93 L 10/25/18 10:02 10/25/18 10:02 10/25/18 10:02 10/25/18 10:02 10/25/18 10:02 Results - Labs 10/30/18 06:14 10/30/18 06:14 Abnormal Lab Results - Last 24 Hours (Table) 10/28/18 10/29/18 10/29/18 Range/Units 10:55 16:35 20:46 RBC (4.30-5.90) m/uL Hgb (13.0-17.5) gm/dL Hct (39.0-53.0) % Lymphocytes # (1.0-4.8) k/uL BUN (9-20) mg/dL Creatinine (0.66-1.25) mg/dL Glucose (74-99) mg/dL POC Glucose (mg/dL) 150 H 209 H (75-99) mg/dL Tot Complement (CH50) 97 H (42 - 95) U/mL 10/30/18 10/30/18 10/30/18 Range/Units 06:14 06:14 06:23 RBC 4.21 L (4.30-5.90) m/uL Hgb 11.2 L (13.0-17.5) gm/dL Hct 34.8 L (39.0-53.0) % Lymphocytes # 0.8 L (1.0-4.8) k/uL BUN 64 H (9-20) mg/dL Creatinine 5.10 H (0.66-1.25) mg/dL Glucose 161 H (74-99) mg/dL POC Glucose (mg/dL) 162 H (75-99) mg/dL Tot Complement (CH50) (42 - 95) U/mL 10/30/18 Range/Units 11:43 RBC (4.30-5.90) m/uL Hgb (13.0-17.5) gm/dL Hct (39.0-53.0) % Lymphocytes # (1.0-4.8) k/uL BUN (9-20) mg/dL Creatinine (0.66-1.25) mg/dL Glucose (74-99) mg/dL POC Glucose (mg/dL) 160 H (75-99) mg/dL Tot Complement (CH50) (42 - 95) U/mL Diabetes panel 10/30/18 Range/Units 06:14 Sodium 138 (137-145) mmol/L Potassium 4.3 (3.5-5.1) mmol/L Chloride 98 (98-107) mmol/L Carbon Dioxide 28 (22-30) mmol/L BUN 64 H (9-20) mg/dL Creatinine 5.10 H (0.66-1.25) mg/dL Glucose 161 H (74-99) mg/dL Calcium 8.8 (8.4-10.2) mg/dL Calcium panel 10/30/18 Range/Units 06:14 Calcium 8.8 (8.4-10.2) mg/dL Pituitary panel 10/30/18 Range/Units 06:14 Sodium 138 (137-145) mmol/L Potassium 4.3 (3.5-5.1) mmol/L Chloride 98 (98-107) mmol/L Carbon Dioxide 28 (22-30) mmol/L BUN 64 H (9-20) mg/dL Creatinine 5.10 H (0.66-1.25) mg/dL Glucose 161 H (74-99) mg/dL Calcium 8.8 (8.4-10.2) mg/dL Adrenal panel 10/30/18 Range/Units 06:14 Sodium 138 (137-145) mmol/L Potassium 4.3 (3.5-5.1) mmol/L Chloride 98 (98-107) mmol/L Carbon Dioxide 28 (22-30) mmol/L BUN 64 H (9-20) mg/dL Creatinine 5.10 H (0.66-1.25) mg/dL Glucose 161 H (74-99) mg/dL Calcium 8.8 (8.4-10.2) mg/dL
[2018-10-29 16:43] LABS: Glucose,Whole Blood 150 mg/dL (75-99)
[2018-10-29 20:47] LABS: Glucose,Whole Blood 209 mg/dL (75-99)
[2018-10-30] MEDS: PANTOPRAZOLE 40 MG TABLET PO SCH (05:40)
[2018-10-30 06:24] LABS: Glucose,Whole Blood 162 mg/dL (75-99)
[2018-10-30] MEDS: INSULIN ASPART (NovoLOG) 100 UNIT/ML VIAL SQ SCH ×4 (06:25→20:02)
[2018-10-30 06:33] LABS: Basophils % (A) 1 %; Eosinophils # (A) 0.4 k/uL (0-0.7); Eosinophils % (A) 6 %; HCT 34.8 % (39.0-53.0); HGB 11.2 gm/dL (13.0-17.5); Lymphocytes # (A) 0.8 k/uL (1.0-4.8); Lymphocytes % (A) 12 %; MCH 26.6 pg (25.0-35.0); MCHC 32.2 g/dL (31.0-37.0); MCV 82.6 fL (80.0-100.0); Mean Platelet Volume 8.1; Monocytes # (A) 0.8 k/uL (0-1.0); Monocytes % (A) 11 %; Neutrophils # (A) 4.6 k/uL (1.3-7.7); Neutrophils % (A) 67 %; Platelet Count 157 k/uL (150-450); RBC 4.21 m/uL (4.30-5.90); RDW 14.9 % (11.5-15.5); WBC 6.8 k/uL (3.8-10.6)
[2018-10-30 06:47] LABS: Calcium 8.8 mg/dL (8.4-10.2); Magnesium 1.8 mg/dL (1.6-2.3); Potassium 4.3 mmol/L (3.5-5.1)
--- NOTE | 2018-10-30 07:37 | P.HPADDEND ---
H&P Addendum H&P Addendum Date: 10/30/18 Patient presented with black tarry stools including GI bleed. We'll proceed with upper endoscopy.
[2018-10-30] MEDS: IPRATROPIUM-ALBUTEROL 3 ML NEB INHALATION PRN (08:20)
[2018-10-30] MEDS: hydrALAZINE HCL 25 MG TAB PO SCH (09:43)
[2018-10-30] MEDS: HYDROcodone/APAP 5-325MG 1 EACH TAB PO PRN ×2 (09:43→16:21)
[2018-10-30] MEDS: amLODIPine 10 MG TAB PO SCH (09:43)
[2018-10-30] MEDS: SODIUM BICARBONATE TAB 650 MG TAB PO SCH (09:43)
[2018-10-30] MEDS: cloNIDine HCL 0.1 MG TAB PO SCH (09:43)
[2018-10-30] MEDS: METOPROLOL TARTRATE 25 MG TAB PO SCH ×2 (09:43→20:02)
[2018-10-30] MEDS: FUROSEMIDE 10 MG/ML 2 ML VIAL IV SCH ×2 (09:46→20:02)
[2018-10-30 11:45] LABS: Glucose,Whole Blood 160 mg/dL (75-99)
--- NOTE | 2018-10-30 11:46 | P.PN ---
Subjective Progress Note Date: 10/30/18 This is 68-year-old gentleman admitted with acute renal failure, acute metabolic encephalopathy, acute hypoxic respiratory failure, acute left pleural effusion and multiple other medical issues. Telemetry reporting paroximal A. fib, during the night ,currently sinus rhythm. Complains of bilateral flank pain, left worse than the right, the patient with history of kidney stones. Maintained on IV fluids with renal function improving, creatinine down to 5.91. Continues on nebulized bronchodilators, ceftriaxone. Diuresing well on Lasix IV push with 24-hour I&O reflecting a negative fluid balance. Maintaining O2 sats in the 90s on 2 L high flow nasal cannula. Afebrile. Normal WBC. Troponin 0.035. 10/29/2018 Eliquis initiated yesterday ,developed black tarry stools 2 during the night. Hemoglobin currently 11.3. Aspirin, Plavix, Eliquis placed on hold in a patient with recent cardiac stents, December 2017. Plavix actually discontinued as per cardiology. Evaluated by surgery and endoscopy planned for tomorrow. Diuresing well on Lasix IV push as per nephrology. Creatinine slowly improving, down to 5.55. Magnesium 1.5. 10/30/2018. NPO,Scheduled for EGD today with general surgery. Hemoglobin stable, 11.2. No bleeding reported, no further black tarry stools. Renal function continues to slowly improve, down to 5.1. Complains of bilateral flank pain. Afebrile, normal WBC. Magnesium 1.8. Denies chest pain, palpitations or shortness of breath. Maintain high signs in the 90s on room air. Objective - Vital Signs Vital signs: Vital Signs Temp 97.8 F 10/30/18 03:11 Pulse 89 10/30/18 03:11 Resp 18 10/30/18 03:11 BP 142/90 10/30/18 03:11 Pulse Ox 96 10/30/18 03:11 Intake & Output 10/29/18 10/30/18 10/30/18 18:59 06:59 18:59 Intake Total 960 Output Total 2175 2200 Balance -1215 -2200 Weight 111.4 kg Intake: Oral 960 Output: Urine 2175 2200 Other: Voiding Method Indwelling Catheter Indwelling Catheter - Exam PHYSICAL EXAM: VITAL SIGNS: [As above] GENERAL: Sitting up in bed, no acute distress HEENT: Conjunctivae normal. eyes normal. NECK: No JVD. No thyroid enlargement. No LNs CARDIOVASCULAR: S1, S2 regular. Systolic murmur. RESPIRATION: Breath sounds diminished in the bases. No rhonchi, fine left basilar crackles ,No wheezing ABDOMEN: Soft, nontender . No guarding. no masses palpable. Bowel sounds heard. LEGS: Positive edema. No clubbing, no cyanosis PSYCHIATRY: Alert and oriented X3, mood and affect normal. NERVOUS SYSTEM: Cranial N 2-12 grossly normal. Moves all 4 limbs. No focal deficits. Strength and sensation grossly intact.. Skin: no lesions, no rash - Labs CBC & Chem 7: 10/30/18 06:14 10/30/18 06:14 Labs: Abnormal Lab Results - Last 24 Hours (Table) 10/28/18 10/29/18 10/29/18 Range/Units 10:55 11:43 16:35 RBC (4.30-5.90) m/uL Hgb (13.0-17.5) gm/dL Hct (39.0-53.0) % Lymphocytes # (1.0-4.8) k/uL BUN (9-20) mg/dL Creatinine (0.66-1.25) mg/dL Glucose (74-99) mg/dL POC Glucose (mg/dL) 187 H 150 H (75-99) mg/dL Tot Complement (CH50) 97 H (42 - 95) U/mL 10/29/18 10/30/18 10/30/18 Range/Units 20:46 06:14 06:14 RBC 4.21 L (4.30-5.90) m/uL Hgb 11.2 L (13.0-17.5) gm/dL Hct 34.8 L (39.0-53.0) % Lymphocytes # 0.8 L (1.0-4.8) k/uL BUN 64 H (9-20) mg/dL Creatinine 5.10 H (0.66-1.25) mg/dL Glucose 161 H (74-99) mg/dL POC Glucose (mg/dL) 209 H (75-99) mg/dL Tot Complement (CH50) (42 - 95) U/mL 10/30/18 Range/Units 06:23 RBC (4.30-5.90) m/uL Hgb (13.0-17.5) gm/dL Hct (39.0-53.0) % Lymphocytes # (1.0-4.8) k/uL BUN (9-20) mg/dL Creatinine (0.66-1.25) mg/dL Glucose (74-99) mg/dL POC Glucose (mg/dL) 162 H (75-99) mg/dL Tot Complement (CH50) (42 - 95) U/mL Assessment and Plan Assessment: -Acute renal failure, possibly prerenal secondary to ATN, cardiorenal syndrome and use of NSAIDs. Chronic kidney disease, stage III secondary to diabetic kidney disease, baseline 1.4. -Change in mental status, acute metabolic encephalopathy secondary to the above, and multifactorial -Acute on chronic hypoxic respiratory failure secondary to fluid overload -Acute left pleural effusion -Paroximal atrial fibrillation, new onset -Ileus -Anemia, of chronic disease -Thrombocytopenia -History of nephrolithiasis -COPD -History of CVA, TIA -Diabetes mellitus type 2 -Gastroesophageal reflux disease -Hypertension -CAD, history of stent, December 2017 -Sleep apnea, wears CPAP occasionally -History of anxiety, depression -History of nicotine dependence -Obesity, BMI 37.7 -Metabolic acidosis secondary to acute renal failure, improving -Hypomagnesemia secondary to diuresing -Dark tarry stools, possible GI bleed, anticoagulation on hold, endoscopy pending. Plan: Continue on current medication regime, beta cliff, sodium bicarb, monitoring and symptomatic treatment. Anticoagulation on hold, EGD pending .Gentle IV fluid hydration. Evaluated by PT with no functional limitations identified .Increase ambulation as tolerated.Close monitoring of renal fun ction,electrolytes with repeat labs ordered for a.m. The impression and plan of care has been dictated as directed. : I performed a history and examination of this patient, discussed the same with the dictator. I agree with the dictator's note ,documented as a scribe. Any additional findings or plans will be noted.
--- NOTE | 2018-10-30 11:57 | PN ---
PROGRESS NOTE Patient is seen for followup for acute kidney injury secondary to ATN. Serum creatinine is slightly improved today to 5.1 from 5.5. Patient has an indwelling Wood catheter with good urine output. His creatinine had peaked at about 6.36. Patient denies any nausea, vomiting, abdominal pain or diarrhea. He has been evaluated by Surgery and is scheduled for upper endoscopy for continued black tarry stools/GI bleed. PHYSICAL EXAMINATION: On examination today, blood pressure was 142/90, heart rate 82 per minute. He is afebrile. Examination of the heart S1, S2. Examination of the lungs, bilateral breath sounds are heard. Abdomen is soft, nontender. Examination of the lower extremities shows no significant edema. 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 LABS: Show sodium 138, potassium 4.3, BUN 64, serum creatinine 5.1, magnesium 1.8, hemoglobin 11.2 g/dL. ASSESSMENT: 1. Acute kidney injury, acute tubular necrosis currently improving. Creatinine is down to 5.1. Patient is not on any nephrotoxic medications. May continue with the current dose of Lasix for now. 2. Metabolic acidosis. Maintained on oral sodium bicarb which I will discontinue as CO2 is up to 28. 3. Atrial fibrillation with controlled ventricular response. 4. Chronic kidney disease stage 3 secondary to most likely diabetic kidney disease. Creatinine 1.4 in December 2017. 5. Hypertension with chronic kidney disease.. PLAN: DC sodium bicarb. Continue with IV Lasix. Repeat labs in a.m. and continue to avoid nephrotoxic medications. MMODL / IJN: [id number] /
[2018-10-30] MEDS ORDERED: SODIUM CHLORIDE 0.9% 500 ML 500 ML IV ONE ×2 (12:56)
--- NOTE | 2018-10-30 13:19 | P.PCN ---
Date of Procedure: 10/30/18 Description of Procedure: PREOPERATIVE DIAGNOSIS: Gastrointestinal bleed with history of melena Chronic anti-platelet therapy Chronic anticoagulant therapy Chronic renal sufficiency POSTOPERATIVE DIAGNOSIS: Gastrointestinal bleed with history of melena Chronic anti-platelet therapy Chronic anticoagulant therapy Chronic renal sufficiency Acute diffuse superficial gastritis with moderate bleeding OPERATION: Esophagogastroduodenoscopy SURGEON: Beth Kan MD ANESTHESIA: MAC. INDICATIONS: The patient is a 68-year-old male who presents with a history of gastrointestinal bleeding and melena. Benefits and risks of the procedure were described. Informed consent was obtained. DESCRIPTION: The patient was brought into the endoscopy suite and laid in the left lateral decubitus position. An Olympus gastroscope was passed along the posterior oropharynx down to the distal esophagus where the squamocolumnar junction was encountered at 40 cm from the incisors. The stomach was entered and no bile reflux was found. Additional findings are listed below. The first through third portion of the duodenum was examined and unremarkable. Retroflexion of the scope confirmed Hill grade 2 lower esophageal valve. The squamocolumnar junction demonstrated LA grade B erosive esophagitis. The stomach was desufflated. The patient tolerated the procedure well. FINDINGS: Squamocolumnar junction 40 cm from the incisors. Diaphragmatic hiatus at 40 cm. Hill grade 2 lower esophageal valve. LA grade B erosive esophagitis. No active duodenitis. Acute gastritis with recent bleed RECOMMENDATIONS: Upper endoscopy as needed. Start Carafate in addition to Protonix.
--- NOTE | 2018-10-30 15:12 | P.PN ---
Subjective Progress Note Date: 10/30/18 Principal diagnosis: Congestive heart failure secondary to diastolic dysfunction This is a pleasant 68-year-old gentleman who I follow in the office as an outpatient with a past medical history significant for coronary artery disease where he underwent in December 2017 successful stenting of the proximal, mid, and distal right coronary artery, diabetes, hypertension, dyslipidemia, and history of carotid disease with prior carotid revascularization long time ago, was admitted to the hospital with congestive heart failure exacerbation as well as acute on chronic renal failure. For the last few days, the patient was not feeling well. Initially he thought he was experiencing symptoms of kidney stone where he experienced in the past. He was having symptoms of low back pain and flank pain. But when I spoke with his was bedside and with further details he was experiencing symptoms of progressive dyspnea. No clear-cut symptoms of orthopnea or PND. But he did the flow bilateral lower extremities edema and he stated that he gained about 5 pounds within the last few days. No chest pain or chest discomfort, fever, chills, cough, or sputum. No dizziness or light headedness, heart racing or fluttering, or syncope. He stated that he was experiencing symptoms of diarrhea as well as. The BNP came in to be around 11,000. The chest x-ray showed findings consistent with left pleural effusion as well as cardiomegaly and pulmonary vascular congestions. Beside that, the patient was found to be in acute renal failure. The creatinine was around 5. Nephrology consult was obtained. Currently the patient is on Lasix IV for the congestive heart failure. He is also known to have aortic stenosis based on an echocardiogram was performed in 2018. Please note that the patient clearly stated that he was not compliant with his diet and he was eating everything in cluding salts. On follow-up with the patient today, 10/30/2018, the patient is doing better clinically. His shortness of breath is better. The lower extremities edema is better as well. The creatinine is trending down. He continues to be on Lasix IV, and nephrology continued to follow-up with the patient. He underwent an upper endoscopy today and that revealed superficial gastritis with moderate bleeding. Oral anticoagulation continues to be on hold at this point. The hemoglobin continues to be stable. Objective - Vital Signs Vital signs: Vital Signs Temp 97.8 F 10/30/18 03:11 Pulse 68 10/30/18 11:49 Resp 18 10/30/18 03:11 BP 142/90 10/30/18 03:11 Pulse Ox 96 10/30/18 03:11 Intake & Output 10/29/18 10/30/18 10/30/18 18:59 06:59 18:59 Intake Total 960 50 Output Total 2175 2200 1220 Balance -1215 -2200 -1170 Weight 111.4 kg Intake: IV 50 Oral 960 Output: Urine 2175 2200 1220 Other: Voiding Method Indwelling Catheter Indwelling Catheter - Constitutional General appearance: Present: no acute distress - Respiratory Respiratory: bilateral: CTA - Cardiovascular Rhythm: regular Heart sounds: normal: S1, S2 Abnormal Heart Sounds: Present: systolic murmur - Labs CBC & Chem 7: 10/30/18 06:14 10/30/18 06:14 Labs: Abnormal Lab Results - Last 24 Hours (Table) 10/28/18 10/29/18 10/29/18 Range/Units 10:55 16:35 20:46 RBC (4.30-5.90) m/uL Hgb (13.0-17.5) gm/dL Hct (39.0-53.0) % Lymphocytes # (1.0-4.8) k/uL BUN (9-20) mg/dL Creatinine (0.66-1.25) mg/dL Glucose (74-99) mg/dL POC Glucose (mg/dL) 150 H 209 H (75-99) mg/dL Tot Complement (CH50) 97 H (42 - 95) U/mL 10/30/18 10/30/18 10/30/18 Range/Units 06:14 06:14 06:23 RBC 4.21 L (4.30-5.90) m/uL Hgb 11.2 L (13.0-17.5) gm/dL Hct 34.8 L (39.0-53.0) % Lymphocytes # 0.8 L (1.0-4.8) k/uL BUN 64 H (9-20) mg/dL Creatinine 5.10 H (0.66-1.25) mg/dL Glucose 161 H (74-99) mg/dL POC Glucose (mg/dL) 162 H (75-99) mg/dL Tot Complement (CH50) (42 - 95) U/mL 10/30/18 Range/Units 11:43 RBC (4.30-5.90) m/uL Hgb (13.0-17.5) gm/dL Hct (39.0-53.0) % Lymphocytes # (1.0-4.8) k/uL BUN (9-20) mg/dL Creatinine (0.66-1.25) mg/dL Glucose (74-99) mg/dL POC Glucose (mg/dL) 160 H (75-99) mg/dL Tot Complement (CH50) (42 - 95) U/mL Assessment and Plan Assessment: Assessment #1 congestive heart failure exacerbation probably related to diastolic dysfunction as well as aortic stenosis #2 coronary artery disease and prior coronary artery vascularization. The patient underwent stenting of the RCA last year #3 acute on chronic renal failure #4 paroxysmal atrial fibrillation Plan #1 continue the current medical regimen #2 continue IV Lasix #3 continue monitor the kidney function and electrolytes #4 continue hold oral anticoagulation until we get permission to restart that by the GI service #5 follow-up with the patient
[2018-10-30] MEDS: SUCRALFATE 1 GM TAB PO SCH (16:21)
--- NOTE | 2018-10-30 16:50 | P.PN ---
Subjective Progress Note Date: 10/30/18 Principal diagnosis: Dyspnea secondary to fluid volume overload The patient is seen today 10/27/2018 in follow-up on the selective care unit. He is awake and alert in no acute distress. Resting comfortably in bed. Currently maintaining O2 saturations in the upper 90s on 6 L high flow nasal cannula alternating with BiPAP. He is breathing easier today as compared to yesterday. White count 6.7. Hemoglobin 9.3. Creatinine 6.36. He remains on DuoNeb inhalations. An antibiotics in the form of ceftriaxone. He is on IV Lasix 40 mg every 12 hours. Nephrology is on the case. Chest x-ray shows significant improvement in the left lower lobe infiltrate/effusion. The patient is seen today 10/28/2018 in follow-up on the selective care unit. He is currently sitting up at the bedside. Awake and alert in no acute distress. He is currently off the BiPAP. Maintaining O2 saturations in the mid 90s on 2 L/m per nasal cannula. He's been afebrile. He was 89% O2 saturation on room air today. White count 6.2. Hemoglobin 10.3. Creatinine 5.91. Troponin 0.035. He remains on DuoNeb inhalations, IV diuretics, antibiotics in the form of ceftriaxone, anticoagulated with Eliquis. The patient is seen today 10/29/2018 in follow-up on the selective care unit. Her only resting quite comfortably in bed. Laying flat. On room air. Hemodynamically stable. Afebrile. White count 6.3. Hemoglobin 11.3. Creatinine 5.55. He remains on bronchodilators, IV diuretics, ceftriaxone. Anticoagulated with Eliquis. This patient was seen again today 10/30/2017 in follow-up on the selective care unit. No worsening shortness of breath. He's been on room air. He did have ongoing issues with GI bleed and history of melena. He had undergone EGD today which revealed grade B erosive esophagitis. No active duodenitis. Acute gastritis with recent bleed. Initiated on Carafate in addition to Protonix. White count 6.8. Hemoglobin 11.2. Creatinine 5.10. He remains on Lasix 40 mg IV every 12 hours. Objective - Vital Signs Vital signs: Vital Signs Temp 97.8 F 10/30/18 08:25 Pulse 68 08/14/19 11:50 Resp 18 10/30/18 11:50 BP 181/90 10/30/18 08:25 Pulse Ox 99 10/30/18 08:25 Intake & Output 10/29/18 10/30/18 10/30/18 18:59 06:59 18:59 Intake Total 960 50 Output Total 2175 2200 1220 Balance -1215 -2200 -1170 Weight 111.4 kg Intake: IV 50 Oral 960 Output: Urine 2175 2200 1220 Other: Voiding Method Indwelling Catheter Indwelling Catheter Indwelling Catheter - Exam GENERAL EXAM: Pleasant 68-year-old gentleman. Alert, comfortable in no apparent distress. On room air. HEAD: Normocephalic. EYES: Normal reaction of pupils, equal size. NOSE: Clear with pink turbinates. THROAT: No erythema or exudates. NECK: No masses, no JVD. CHEST: No chest wall deformity. LUNGS: Equal air entry with crackles in the left lung base. CVS: S1 and S2 normal with no audible murmur, regular rhythm. ABDOMEN: No hepatosplenomegaly, normal bowel sounds, no guarding or rigidity. SPINE: No scoliosis or deformity SKIN: No rashes CENTRAL NERVOUS SYSTEM: No focal deficits, tone is normal in all 4 extremities. EXTREMITIES: There is 1-2+ peripheral edema. No clubbing, no cyanosis. Peripheral pulses are intact. - Labs CBC & Chem 7: 10/30/18 06:14 10/30/18 06:14 Labs: Abnormal Lab Results - Last 24 Hours (Table) 10/28/18 10/29/18 10/29/18 Range/Units 10:55 16:35 20:46 RBC (4.30-5.90) m/uL Hgb (13.0-17.5) gm/dL Hct (39.0-53.0) % Lymphocytes # (1.0-4.8) k/uL BUN (9-20) mg/dL Creatinine (0.66-1.25) mg/dL Glucose (74-99) mg/dL POC Glucose (mg/dL) 150 H 209 H (75-99) mg/dL Tot Complement (CH50) 97 H (42 - 95) U/mL 10/30/18 10/30/18 10/30/18 Range/Units 06:14 06:14 06:23 RBC 4.21 L (4.30-5.90) m/uL Hgb 11.2 L (13.0-17.5) gm/dL Hct 34.8 L (39.0-53.0) % Lymphocytes # 0.8 L (1.0-4.8) k/uL BUN 64 H (9-20) mg/dL Creatinine 5.10 H (0.66-1.25) mg/dL Glucose 161 H (74-99) mg/dL POC Glucose (mg/dL) 162 H (75-99) mg/dL Tot Complement (CH50) (42 - 95) U/mL 10/30/18 Range/Units 11:43 RBC (4.30-5.90) m/uL Hgb (13.0-17.5) gm/dL Hct (39.0-53.0) % Lymphocytes # (1.0-4.8) k/uL BUN (9-20) mg/dL Creatinine (0.66-1.25) mg/dL Glucose (74-99) mg/dL POC Glucose (mg/dL) 160 H (75-99) mg/dL Tot Complement (CH50) (42 - 95) U/mL Assessment and Plan Assessment: Impression: #1 Acute on chronic hypoxic respiratory failure secondary to acute fluid volume overload secondary to acute renal failure secondary to acute tubular necrosis as well as increased use of nonsteroidals. #2 Melena stools, status post EGD today which revealed grade B erosive esophagitis, no active duodenitis, acute gastritis with recent bleeding. Carafate added to Protonix.. #3 History of nephrolithiasis. #4 History of chronic obstructive pulmonary disease. #5 History of heavy tobacco use. #6 History of CVA. #7 Diabetes mellitus. #8 Gastroesophageal reflux disease. #9 History of hypertension. #10 Degenerative joint disease. #11 History of obstructive sleep apnea, noncompliant with CPAP. #12 Coronary artery disease with previous stent placement. Plan: The patient was seen and evaluated by Dr. Shah. The patient is improving from the pulmonary standpoint. On room air now. Renal function slight improve ment. Remains on IV diuretics. Remains on sodium bicarb. The patient did undergo EGD today. Noted as above. No current pulmonary issues. We'll see the patient on as-needed basis. I, the cosigning physician, performed a history & physical examination of the patient. Lungs sounds crackles in the left lung base Maintaining good O2 saturations in the 90s on room air. I discussed the assessment and plan of care with my nurse practitioner, Colleen Amaya. I attest to the above note as dictated by her.
[2018-10-30 16:51] LABS: Glucose,Whole Blood 276 mg/dL (75-99)
[2018-10-30 19:53] LABS: Glucose,Whole Blood 164 mg/dL (75-99)
[2018-10-30] MEDS: MORPHINE SULFATE 4 MG/ML SYRINGE IVP PRN (20:01)
[2018-10-30 20:13] VITALS: RESP 18
[2018-10-31 06:37] LABS: Glucose,Whole Blood 195 mg/dL (75-99)
[2018-10-31] MEDS: PANTOPRAZOLE 40 MG TABLET PO SCH (06:43)
[2018-10-31] MEDS: SUCRALFATE 1 GM TAB PO SCH ×2 (06:43→17:17)
[2018-10-31] MEDS: INSULIN ASPART (NovoLOG) 100 UNIT/ML VIAL SQ SCH ×4 (06:43→20:38)
[2018-10-31 07:02] LABS: Basophils % (A) 1 %; Eosinophils # (A) 0.3 k/uL (0-0.7); Eosinophils % (A) 5 %; HCT 33.7 % (39.0-53.0); HGB 10.9 gm/dL (13.0-17.5); Lymphocytes # (A) 0.9 k/uL (1.0-4.8); Lymphocytes % (A) 14 %; MCH 27.1 pg (25.0-35.0); MCHC 32.5 g/dL (31.0-37.0); MCV 83.3 fL (80.0-100.0); Monocytes # (A) 0.7 k/uL (0-1.0); Monocytes % (A) 11 %; Neutrophils # (A) 4.1 k/uL (1.3-7.7); Neutrophils % (A) 66 %; Platelet Count 151 k/uL (150-450); RBC 4.04 m/uL (4.30-5.90); RDW 14.7 % (11.5-15.5); WBC 6.3 k/uL (3.8-10.6)
[2018-10-31 07:23] LABS: Calcium 8.7 mg/dL (8.4-10.2); Potassium 4.3 mmol/L (3.5-5.1)
--- NOTE | 2018-10-31 07:23 | P.PN ---
Progress Note - Text Progress Note Date: 10/30/18 Patient seen and evaluated following upper endoscopy. No reports of abdominal pain. No further reports of tarry stools since admission. Upper endoscopy findings consistent with moderate gastritis with recent bleed secondary to medication and acute renal failure. Recommend hold of anticoagulants. Address acute renal failure. May be on regular diet low potassium and low phosphate for kidney disease. At this time, colonoscopy is hold as no further symptoms of bloody stools consistent with upper GI source. Patient started on Carafate. Continue Protonix.
[2018-10-31] MEDS: amLODIPine 10 MG TAB PO SCH (09:03)
[2018-10-31] MEDS: METOPROLOL TARTRATE 25 MG TAB PO SCH ×2 (09:03→20:15)
[2018-10-31] MEDS: hydrALAZINE HCL 25 MG TAB PO SCH (09:04)
[2018-10-31] MEDS: cloNIDine HCL 0.1 MG TAB PO SCH (09:04)
[2018-10-31] MEDS: HYDROcodone/APAP 5-325MG 1 EACH TAB PO PRN ×2 (09:04→17:17)
[2018-10-31] MEDS: FUROSEMIDE 10 MG/ML 2 ML VIAL IV SCH ×2 (09:06→20:14)
--- NOTE | 2018-10-31 11:32 | P.PN ---
Subjective Progress Note Date: 10/31/18 CHIEF COMPLAINT: dark tarry stools HISTORY OF PRESENT ILLNESS: Patient is status post EGD revealing esophagitis and acute gastritis with recent bleeding. Patient remains on Protonix. Carafate was added to medication regimen. Anticoagulation may that hold. Patient denies abdominal pain this morning upon examination. He is tolerating diet. Denies nausea or vomiting. Denies further episodes of black stools. Hemoglobin 10.9. PHYSICAL EXAM: VITAL SIGNS: Reviewed GENERAL: Well-developed in no acute distress. HEENT: No sclera icterus. Extraocular movements grossly intact. Moist buccal mucosa. Head is atraumatic, normocephalic. Hears conversational speech. No nasal drainage. NECK: Supple without lymphadenopathy. CHEST: Non-labored respirations and equal bilateral excursions. CARDIOVASCULAR: Regular rate with regular rhythm. Palpable 2+ radial pulses. ABDOMEN: Soft. Nondistended. Nontender. Positive bowel sounds. MUSCULOSKELETAL: No clubbing or cyanosis NEUROLOGIC: No focal or lateralizing signs. Cranial nerves II through XII grossly intact. PSYCH: Appropriate affect. Alert and oriented to person, place and time. SKIN: Well perfused. Good skin turgor. ASSESSMENT: 1. Melana, status post EGD revealing esophagitis and acute gastritis with recent bleeding 2. History of cardiac stenting, December 2017 3. History of EGD, December 2017, revealing antral gastritis 4. History of atrial fibrillation PLAN: 1. Continue current diet 2. Continue carafate and protonix while inpatient and upon discharge 3. Continue to hold anticoagulation. May resume in [address] Kan. 4. No plans for colonoscopy at this time Nurse practitioner note has been reviewed by physician. Signing provider agrees with the documented findings, assessment, and plan of care. Objective - Vital Signs Vital signs: Vital Signs Temp 98.1 F 10/31/18 08:30 Pulse 85 10/31/18 08:30 Resp 18 10/31/18 08:30 BP 187/84 10/31/18 08:30 Pulse Ox 96 10/31/18 08:30 Intake & Output 10/30/18 10/31/18 10/31/18 18:59 06:59 18:59 Intake Total 530 240 0 Output Total 1220 1000 850 Balance -690 760 -850 Weight 110.5 kg Intake: IV 50 Oral 480 240 0 Output: Urine 1220 1000 850 Other: Voiding Method Indwelling Catheter Indwelling Catheter Indwelling Catheter - Labs CBC & Chem 7: 10/31/18 06:05 10/31/18 06:05 Labs: Abnormal Lab Results - Last 24 Hours (Table) 10/30/18 10/30/18 10/30/18 Range/Units 11:43 16:26 19:51 RBC (4.30-5.90) m/uL Hgb (13.0-17.5) gm/dL Hct (39.0-53.0) % Lymphocytes # (1.0-4.8) k/uL BUN (9-20) mg/dL Creatinine (0.66-1.25) mg/dL Glucose (74-99) mg/dL POC Glucose (mg/dL) 160 H 276 H 164 H (75-99) mg/dL 10/31/18 10/31/18 10/31/18 Range/Units 06:05 06:05 06:35 RBC 4.04 L (4.30-5.90) m/uL Hgb 10.9 L (13.0-17.5) gm/dL Hct 33.7 L (39.0-53.0) % Lymphocytes # 0.9 L (1.0-4.8) k/uL BUN 67 H (9-20) mg/dL Creatinine 4.95 H (0.66-1.25) mg/dL Glucose 153 H (74-99) mg/dL POC Glucose (mg/dL) 195 H (75-99) mg/dL
[2018-10-31 11:43] LABS: Glucose,Whole Blood 162 mg/dL (75-99)
--- NOTE | 2018-10-31 11:59 | P.PN ---
Subjective Progress Note Date: 10/31/18 This is a 68-year-old with past medical history significant for coronary artery disease where he underwent in December 2017 successful stenting of the proximal, mid, and distal right coronary artery, diabetes, hypertension, dyslipidemia, and history of carotid disease with prior carotid revascularization long time ago, was admitted to the hospital with congestive heart failure exacerbation as well as acute on chronic renal failure. For the last few days, the patient was not feeling well. Initially he thought he was experiencing symptoms of kidney stone where he experienced in the past. He was having symptoms of low back pain and flank pain. But when I spoke with his was bedside and with further details he was experiencing symptoms of progressive dyspnea. No clear-cut symptoms of orthopnea or PND. But he did the flow bilateral lower extremities edema and he stated that he gained about 5 pounds within the last few days. No chest pain or chest discomfort, fever, chills, cough, or sputum. No dizziness or lightheadedness, heart racing or fluttering, or syncope. He stated that he was experiencing symptoms of diarrhea as well as. The BNP came in to be around 11,000. The chest x-ray showed findings consistent with left pleural effusion as well as cardiomegaly and pulmonary vascular congestions. Beside that, the patient was found to be in acute renal failure. The creatinine was around 5. Nephrology consult was obtained. Currently the patient is on Lasix IV for the congestive heart failure. He is also known to have aortic stenosis based on an echocardiogram was performed in 2018. Please note that the patient clearly stated that he was not compliant with his diet and he was eating everything including salts. 10/31/2018 She was seen and examined this morning, overall the breathing is better, edema is improving. He continues to be on IV Lasix at this time. Patient did undergo an upper endoscopy which revealed gastritis with moderate bleeding, coagulase and continues to be on hold. Laboratory data from today was reviewed, white blood cell count 6.3, Hemoccult, 10.9, platelet count 151. Sodium 137, potassium 4.3, BUN 67 and creatinine 4.9. Objective - Vital Signs Vital signs: Vital Signs Temp 98.1 F 10/31/18 08:30 Pulse 85 10/31/18 08:30 Resp 18 10/31/18 08:30 BP 187/84 10/31/18 08:30 Pulse Ox 96 08/15/19 08:30 Intake & Output 10/30/18 10/31/18 10/31/18 18:59 06:59 18:59 Intake Total 530 240 0 Output Total 1220 1000 850 Balance -690 760 -850 Weight 110.5 kg Intake: IV 50 Oral 480 240 0 Output: Urine 1220 1000 850 Other: Voiding Method Indwelling Catheter Indwelling Catheter Indwelling Catheter - Exam GENERAL EXAM: Pleasant 68-year-old gentleman. Alert, comfortable in no apparent distress. On room air. HEAD: Normocephalic. EYES: Normal reaction of pupils, equal size. NOSE: Clear with pink turbinates. THROAT: No erythema or exudates. NECK: No masses, no JVD. CHEST: No chest wall deformity. LUNGS: Equal air entry with crackles in the left lung base. CVS: S1 and S2 normal with no audible murmur, regular rhythm. ABDOMEN: No hepatosplenomegaly, normal bowel sounds, no guarding or rigidity. SPINE: No scoliosis or deformity SKIN: No rashes CENTRAL NERVOUS SYSTEM: No focal deficits, tone is normal in all 4 extremities. EXTREMITIES: There is 1-2+ peripheral edema. No clubbing, no cyanosis. Peripheral pulses are intact. - Labs CBC & Chem 7: 10/31/18 06:05 10/31/18 06:05 Labs: Abnormal Lab Results - Last 24 Hours (Table) 10/30/18 10/30/18 10/31/18 Range/Units 16:26 19:51 06:05 RBC 4.04 L (4.30-5.90) m/uL Hgb 10.9 L (13.0-17.5) gm/dL Hct 33.7 L (39.0-53.0) % Lymphocytes # 0.9 L (1.0-4.8) k/uL BUN (9-20) mg/dL Creatinine (0.66-1.25) mg/dL Glucose (74-99) mg/dL POC Glucose (mg/dL) 276 H 164 H (75-99) mg/dL 10/31/18 10/31/18 10/31/18 Range/Units 06:05 06:35 11:41 RBC (4.30-5.90) m/uL Hgb (13.0-17.5) gm/dL Hct (39.0-53.0) % Lymphocytes # (1.0-4.8) k/uL BUN 67 H (9-20) mg/dL Creatinine 4.95 H (0.66-1.25) mg/dL Glucose 153 H (74-99) mg/dL POC Glucose (mg/dL) 195 H 162 H (75-99) mg/dL Assessment and Plan Plan: Assessment #1 congestive heart failure exacerbation probably related to diastolic dysfunction as well as aortic stenosis #2 coronary artery disease and prior coronary artery vascularization. The tammy arango underwent stenting of the RCA last year #3 acute on chronic renal failure #4 paroxysmal atrial fibrillation Plan #1 continue the current medical regimen #2 continue IV Lasix #3 continue monitor the kidney function and electrolytes #4 continue hold oral anticoagulation until we get permission to restart that by the GI service #5 follow-up with the patient DNP note has been reviewed, I agree with a documented findings and plan of care. Patient was seen and examined.
[2018-10-31] MEDS ORDERED: LACTATED RINGERS 1,000 ML IV SCH (13:37)
--- NOTE | 2018-10-31 13:46 | P.PN ---
Subjective Progress Note Date: 10/31/18 This is 68-year-old gentleman admitted with acute renal failure, acute metabolic encephalopathy, acute hypoxic respiratory failure, acute left pleural effusion and multiple other medical issues. Telemetry reporting paroximal A. fib, during the night ,currently sinus rhythm. Complains of bilateral flank pain, left worse than the right, the patient with history of kidney stones. Maintained on IV fluids with renal function improving, creatinine down to 5.91. Continues on nebulized bronchodilators, ceftriaxone. Diuresing well on Lasix IV push with 24-hour I&O reflecting a negative fluid balance. Maintaining O2 sats in the 90s on 2 L high flow nasal cannula. Afebrile. Normal WBC. Troponin 0.035. 10/29/2018 Eliquis initiated yesterday ,developed black tarry stools 2 during the night. Hemoglobin currently 11.3. Aspirin, Plavix, Eliquis placed on hold in a patient with recent cardiac stents, December 2017. Plavix actually discontinued as per cardiology. Evaluated by surgery and endoscopy planned for tomorrow. Diuresing well on Lasix IV push as per nephrology. Creatinine slowly improving, down to 5.55. Magnesium 1.5. 10/30/2018. NPO,Scheduled for EGD today with general surgery. Hemoglobin stable, 11.2. No bleeding reported, no further black tarry stools. Renal function continues to slowly improve, down to 5.1. Complains of bilateral flank pain. Afebrile, normal WBC. Magnesium 1.8. Denies chest pain, palpitations or shortness of breath. Maintain high signs in the 90s on room air. 10/31/2018 No further bleeding, hemoglobin 10.9. Denies abdominal pain. Creatinine continues trending down to 4.95. Complains of bilateral flank pain/lower back pain which patient states has been present for over a week prior to admission. Underwent EGD yesterday reporting moderate gastritis secondary to recent bleeding with Carafate added to med regime in addition to PPI, with re commendations of holding anticoagulation at this time. No plans for colonoscopy at this time. Objective - Vital Signs Vital signs: Vital Signs Temp 98.1 F 10/31/18 08:30 Pulse 85 10/31/18 08:30 Resp 18 10/31/18 08:30 BP 187/84 10/31/18 08:30 Pulse Ox 96 08/15/19 08:30 Intake & Output 10/30/18 10/31/18 10/31/18 18:59 06:59 18:59 Intake Total 530 240 0 Output Total 1220 1000 850 Balance -690 760 850 Weight 110.5 kg Intake: IV 50 Oral 480 240 0 Output: Urine 1220 1000 850 Other: Voiding Method Indwelling Catheter Indwelling Catheter Indwelling Catheter - Exam PHYSICAL EXAM: VITAL SIGNS: [As above] GENERAL: Sitting up at side of bed, no acute distress HEENT: Conjunctivae normal. eyes normal. NECK: No JVD. No thyroid enlargement. No LNs CARDIOVASCULAR: S1, S2 regular. Systolic murmur. RESPIRATION: Breath sounds diminished in the bases. No rhonchi, fine left basilar crackles ,No wheezing ABDOMEN: Soft, nontender, nondistended . No guarding. no masses palpable. Bowel sounds heard. LEGS: Positive edema. No clubbing, no cyanosis PSYCHIATRY: Alert and oriented X3, mood and affect normal. NERVOUS SYSTEM: Cranial N 2-12 grossly normal. Moves all 4 limbs. No focal deficits. Strength and sensation grossly intact.. Skin: no lesions, no rash - Labs CBC & Chem 7: 10/31/18 06:05 10/31/18 06:05 Labs: Abnormal Lab Results - Last 24 Hours (Table) 10/30/18 10/30/18 10/31/18 Range/Units 16:26 19:51 06:05 RBC 4.04 L (4.30-5.90) m/uL Hgb 10.9 L (13.0-17.5) gm/dL Hct 33.7 L (39.0-53.0) % Lymphocytes # 0.9 L (1.0-4.8) k/uL BUN (9-20) mg/dL Creatinine (0.66-1.25) mg/dL Glucose (74-99) mg/dL POC Glucose (mg/dL) 276 H 164 H (75-99) mg/dL 10/31/18 10/31/18 10/31/18 Range/Units 06:05 06:35 11:41 RBC (4.30-5.90) m/uL Hgb (13.0-17.5) gm/dL Hct (39.0-53.0) % Lymphocytes # (1.0-4.8) k/uL BUN 67 H (9-20) mg/dL Creatinine 4.95 H (0.66-1.25) mg/dL Glucose 153 H (74-99) mg/dL POC Glucose (mg/dL) 195 H 162 H (75-99) mg/dL Assessment and Plan Assessment: -Acute renal failure, possibly prerenal secondary to ATN, cardiorenal syndrome and use of NSAIDs. Chronic kidney disease, stage III secondary to diabetic kidney disease, baseline 1.4. -Change in mental status, acute metabolic encephalopathy secondary to the above, and multifactorial -Acute on chronic hypoxic respiratory failure secondary to fluid overload secondary to #1 -Acute left pleural effusion -Paroximal atrial fibrillation, new onset -Ileus -Anemia, of chronic disease -Thrombocytopenia -History of nephrolithiasis -COPD -History of CVA, TIA -Diabetes mellitus type 2 -Gastroesophageal reflux disease -Hypertension -CAD, history of stent, December 2017 -Sleep apnea, wears CPAP occasionally -History of anxiety, depression -History of nicotine dependence -Obesity, BMI 37.7 -Metabolic acidosis secondary to acute renal failure, improving -Hypomagnesemia secondary to diuresing -Melena Stools, possible GI bleed, anticoagulation on hold, endoscopy reporting acute gastritis with recent bleed. Plan: Continue on current medication regime, beta cliff, sodium bicarb, monitoring and symptomatic treatment. Anticoagulation on hold.diuretics as per nephrology. Increase ambulation as tolerated.Close monitoring of renal function,electrolytes with repeat labs ordered for a.m. The impression and plan of care has been dictated as directed. : I performed a history and examination of this patient, discussed the same with the dictator. I agree with the dictator's note ,documented as a scribe. Any additional findings or plans will be noted.
[2018-10-31 14:02] VITALS: BMI 35.9
--- NOTE | 2018-10-31 15:24 | P.PN ---
Subjective Progress Note Date: 10/31/18 Principal diagnosis: Dyspnea secondary to fluid volume overload The patient is seen today 10/27/2018 in follow-up on the selective care unit. He is awake and alert in no acute distress. Resting comfortably in bed. Currently maintaining O2 saturations in the upper 90s on 6 L high flow nasal cannula alternating with BiPAP. He is breathing easier today as compared to yesterday. White count 6.7. Hemoglobin 9.3. Creatinine 6.36. He remains on DuoNeb inhalations. An antibiotics in the form of ceftriaxone. He is on IV Lasix 40 mg every 12 hours. Nephrology is on the case. Chest x-ray shows significant improvement in the left lower lobe infiltrate/effusion. The patient is seen today 10/28/2018 in follow-up on the selective care unit. He is currently sitting up at the bedside. Awake and alert in no acute distress. He is currently off the BiPAP. Maintaining O2 saturations in the mid 90s on 2 L/m per nasal cannula. He's been afebrile. He was 89% O2 saturation on room air today. White count 6.2. Hemoglobin 10.3. Creatinine 5.91. Troponin 0.035. He remains on DuoNeb inhalations, IV diuretics, antibiotics in the form of ceftriaxone, anticoagulated with Eliquis. The patient is seen today 10/29/2018 in follow-up on the selective care unit. Her only resting quite comfortably in bed. Laying flat. On room air. Hemodynamically stable. Afebrile. White count 6.3. Hemoglobin 11.3. Creatinine 5.55. He remains on bronchodilators, IV diuretics, ceftriaxone. Anticoagulated with Eliquis. This patient was seen again today 10/30/2017 in follow-up on the selective care unit. No worsening shortness of breath. He's been on room air. He did have ongoing issues with GI bleed and history of melena. He had undergone EGD today which revealed grade B erosive esophagitis. No active duodenitis. Acute gastritis with recent bleed. Initiated on Carafate in addition to Protonix. White count 6.8. Hemoglobin 11.2. Creatinine 5.10. He remains on Lasix 40 mg IV every 12 hours. Patient is seen again today 10/31/2018 in follow-up on the selective care unit. He is currently resting quite comfortably in bed. Laying flat. He denies any worsening shortness of breath, cough or congestion. O2 saturations in the mid 90s on room air. He's been afebrile. His main complaint today is that of chronic and ongoing low left-sided back discomfort. Morphine and [place] for pain control. White count 6.3. Hemoglobin 10.9. Creatinine 4.95. He is making urine. Objective - Vital Signs Vital signs: Vital Signs Temp 98.1 F 10/31/18 08:30 Pulse 85 10/31/18 08:30 Resp 18 10/31/18 08:30 BP 187/84 10/31/18 08:30 Pulse Ox 96 10/31/18 08:30 Intake & Output 10/30/18 10/31/18 10/31/18 18:59 06:59 18:59 Intake Total 530 240 240 Output Total 1220 1000 850 Balance -690 -760 -610 Weight 110.5 kg 110.5 kg Intake: IV 50 Oral 480 240 240 Output: Urine 1220 1000 850 Other: Voiding Method Indwelling Catheter Indwelling Catheter Indwelling Catheter - Exam GENERAL EXAM: Pleasant 68-year-old gentleman. Alert, fairly comfortable in no apparent distress. On room air. HEAD: Normocephalic. EYES: Normal reaction of pupils, equal size. NOSE: Clear with pink turbinates. THROAT: No erythema or exudates. NECK: No masses, no JVD. CHEST: No chest wall deformity. LUNGS: Equal air entry with crackles in the left lung base. CVS: S1 and S2 normal with no audible murmur, regular rhythm. ABDOMEN: No hepatosplenomegaly, normal bowel sounds, no guarding or rigidity. SPINE: No scoliosis or deformity SKIN: No rashes CENTRAL NERVOUS SYSTEM: No focal deficits, tone is normal in all 4 extremities. EXTREMITIES: There is 1-2+ peripheral edema. No clubbing, no cyanosis. Peripheral pulses are intact. - Labs CBC & Chem 7: 10/31/18 06:05 10/31/18 06:05 Labs: Abnormal Lab Results - Last 24 Hours (Table) 10/30/18 10/30/18 10/31/18 Range/Units 16:26 19:51 06:05 RBC 4.04 L (4.30-5.90) m/uL Hgb 10.9 L (13.0-17.5) gm/dL Hct 33.7 L (39.0-53.0) % Lymphocytes # 0.9 L (1.0-4.8) k/uL BUN (9-20) mg/dL Creatinine (0.66-1.25) mg/dL Glucose (74-99) mg/dL POC Glucose (mg/dL) 276 H 164 H (75-99) mg/dL 10/31/18 10/31/18 10/31/18 Range/Units 06:05 06:35 11:41 RBC (4.30-5.90) m/uL Hgb (13.0-17.5) gm/dL Hct (39.0-53.0) % Lymphocytes # (1.0-4.8) k/uL BUN 67 H (9-20) mg/dL Creatinine 4.95 H (0.66-1.25) mg/dL Glucose 153 H (74-99) mg/dL POC Glucose (mg/dL) 195 H 162 H (75-99) mg/dL Assessment and Plan Assessment: Impression: #1 Acute on chronic hypoxic respiratory failure secondary to acute fluid volume overload secondary to acute renal failure secondary to acute tubular necrosis as well as increased use of nonsteroidals. Recovered and on room air. #2 Melena stools, status post EGD today which revealed grade B erosive esophagitis, no active duodenitis, acute gastritis with recent bleeding. Carafate added to Protonix.. #3 History of nephrolithiasis. #4 History of chronic obstructive pulmonary disease. #5 History of heavy tobacco use. #6 History of CVA. #7 Diabetes mellitus. #8 Gastroesophageal reflux disease. #9 History of hypertension. #10 Degenerative joint disease. #11 History of obstructive sleep apnea, noncompliant with CPAP. #12 Coronary artery disease with previous stent placement. Plan: The patient was seen and evaluated by Dr. Shah. No current pulmonary issues. We'll see the patient on an as-needed basis. I, the cosigning physician, performed a history & physical examination of the patient. Lungs sounds crackles in the left lung base Maintaining good O2 saturations in the 90s on room air. I discussed the assessment and plan of care with my nurse practitioner, Colleen Amaya. I attest to the above note as dictated by her.
[2018-10-31 16:50] LABS: Glucose,Whole Blood 210 mg/dL (75-99)
--- NOTE | 2018-10-31 17:04 | PN ---
PROGRESS NOTE Patient is seen for followup for acute kidney injury. His renal function has been improving. Serum creatinine is down to 4.9 today. Overall, patient states he is feeling better. He denies any nausea, vomiting, abdominal pain or diarrhea. On examination, blood pressure this morning was elevated at 187/84. Prior to that it was 148/72, heart rate 89 per minute. Patient is afebrile. EXAMINATION OF THE HEART: S1 and S2. EXAMINATION OF LUNGS: Bilateral breath sounds are heard. ABDOMEN: Soft, non-tender. Examination of lower extremities shows no significant edema. Labs show sodium 137, potassium 4.8, chloride 99, CO2 67, serum creatinine 4.95, hemoglobin 10.9 g/dL. ASSESSMENT: 1. Acute kidney injury, acute tubular necrosis, currently improving slowly. Patient has had good urine output. 2. Metabolic acidosis, status post sodium bicarb which was discontinued yesterday. His acidosis has improved. 3. Atrial fibrillation with controlled ventricular response. 4. Chronic kidney disease, stage III, secondary to diabetic kidney disease. PLAN: Repeat labs in a.m. Continue with the IV Lasix for now. Avoid hypotension. MMODL / IJN: [id number] /
[2018-10-31] MEDS: MORPHINE SULFATE 4 MG/ML SYRINGE IVP PRN (20:14)
[2018-10-31 20:35] LABS: Glucose,Whole Blood 154 mg/dL (75-99)
[2018-11-01] MEDS: MORPHINE SULFATE 4 MG/ML SYRINGE IVP PRN ×2 (01:04→08:05)
[2018-11-01] MEDS: SUCRALFATE 1 GM TAB PO SCH (06:17)
[2018-11-01] MEDS: PANTOPRAZOLE 40 MG TABLET PO SCH (06:17)
[2018-11-01] MEDS: INSULIN ASPART (NovoLOG) 100 UNIT/ML VIAL SQ SCH ×2 (06:21→12:14)
[2018-11-01 06:27] LABS: Glucose,Whole Blood 151 mg/dL (75-99)
[2018-11-01 07:59] LABS: Basophils # (A) 0.1 k/uL (0-0.2); Basophils % (A) 1 %; Eosinophils # (A) 0.4 k/uL (0-0.7); Eosinophils % (A) 5 %; HCT 36.6 % (39.0-53.0); HGB 11.8 gm/dL (13.0-17.5); Lymphocytes # (A) 1.3 k/uL (1.0-4.8); Lymphocytes % (A) 15 %; MCH 26.5 pg (25.0-35.0); MCHC 32.2 g/dL (31.0-37.0); MCV 82.4 fL (80.0-100.0); Mean Platelet Volume 7.1; Monocytes # (A) 0.9 k/uL (0-1.0); Monocytes % (A) 11 %; Neutrophils # (A) 5.5 k/uL (1.3-7.7); Neutrophils % (A) 66 %; Platelet Count 183 k/uL (150-450); RBC 4.44 m/uL (4.30-5.90); RDW 14.7 % (11.5-15.5); WBC 8.3 k/uL (3.8-10.6)
[2018-11-01] MEDS: hydrALAZINE HCL 25 MG TAB PO SCH (08:04)
[2018-11-01] MEDS: FUROSEMIDE 10 MG/ML 2 ML VIAL IV SCH (08:05)
[2018-11-01] MEDS: METOPROLOL TARTRATE 25 MG TAB PO SCH (08:05)
[2018-11-01] MEDS: cloNIDine HCL 0.1 MG TAB PO SCH (08:05)
[2018-11-01] MEDS: amLODIPine 10 MG TAB PO SCH (08:05)
[2018-11-01 08:12] LABS: Calcium 9.1 mg/dL (8.4-10.2); Potassium 4.4 mmol/L (3.5-5.1)
--- NOTE | 2018-11-01 10:54 | P.PN ---
Subjective Progress Note Date: 11/01/18 Principal diagnosis: Congestive heart failure secondary to diastolic dysfunction This is a pleasant 68-year-old gentleman who I follow in the office as an outpatient with a past medical history significant for coronary artery disease where he underwent in December 2017 successful stenting of the proximal, mid, and distal right coronary artery, diabetes, hypertension, dyslipidemia, and history of carotid disease with prior carotid revascularization long time ago, was admitted to the hospital with congestive heart failure exacerbation as well as acute on chronic renal failure. For the last few days, the patient was not feeling well. Initially he thought he was experiencing symptoms of kidney stone where he experienced in the past. He was having symptoms of low back pain and flank pain. But when I spoke with his was bedside and with further details he was experiencing symptoms of progressive dyspnea. No clear-cut symptoms of orthopnea or PND. But he did the flow bilateral lower extremities edema and he stated that he gained about 5 pounds within the last few days. No chest pain or chest discomfort, fever, chills, cough, or sputum. No dizziness or light headedness, heart racing or fluttering, or syncope. He stated that he was experiencing symptoms of diarrhea as well as. The BNP came in to be around 11,000. The chest x-ray showed findings consistent with left pleural effusion as well as cardiomegaly and pulmonary vascular congestions. Beside that, the patient was found to be in acute renal failure. The creatinine was around 5. Nephrology consult was obtained. Currently the patient is on Lasix IV for the congestive heart failure. He is also known to have aortic stenosis based on an echocardiogram was performed in 2018. Please note that the patient clearly stated that he was not compliant with his diet and he was eating everything in cluding salts. On follow-up with the patient today, November [id number], the patient is feeling better in terms of shortness of breath. No chest pain or chest discomfort. He is euvolemic on examination. From the cardiac vascular standpoint overview, he can be discharged home. Objective - Vital Signs Vital signs: Vital Signs Temp 97.9 F 11/01/18 08:00 Pulse 75 11/01/18 08:00 Resp 18 11/01/18 08:00 BP 111/45 11/01/18 08:00 Pulse Ox 92 L 11/01/18 08:00 Intake & Output 10/31/18 11/01/18 11/01/18 18:59 06:59 18:59 Intake Total 480 240 Output Total 1800 1000 1000 Balance -1320 -760 -1000 Weight 110.5 kg Intake: Oral 480 240 Output: Urine 1800 1000 1000 Uretheral (Wood) 1000 Other: Voiding Method Indwelling Catheter Indwelling Catheter Indwelling Catheter - Constitutional General appearance: Present: no acute distress - Respiratory Respiratory: bilateral: CTA - Cardiovascular Rhythm: regular Heart sounds: normal: S1, S2 - Labs CBC & Chem 7: 11/01/18 07:16 11/01/18 07:16 Labs: Abnormal Lab Results - Last 24 Hours (Table) 10/31/18 10/31/18 10/31/18 Range/Units 11:41 16:48 20:34 Hgb (13.0-17.5) gm/dL Hct (39.0-53.0) % Sodium (137-145) mmol/L Chloride (98-107) mmol/L BUN (9-20) mg/dL Creatinine (0.66-1.25) mg/dL Glucose (74-99) mg/dL POC Glucose (mg/dL) 162 H 210 H 154 H (75-99) mg/dL 11/01/18 11/01/18 11/01/18 Range/Units 06:21 07:16 07:16 Hgb 11.8 L (13.0-17.5) gm/dL Hct 36.6 L (39.0-53.0) % Sodium 136 L (137-145) mmol/L Chloride 96 L (98-107) mmol/L BUN 67 H (9-20) mg/dL Creatinine 5.00 H (0.66-1.25) mg/dL Glucose 157 H (74-99) mg/dL POC Glucose (mg/dL) 151 H (75-99) mg/dL Assessment and Plan Assessment: Assessment #1 congestive heart failure exacerbation probably related to diastolic dysfunction as well as aortic stenosis #2 coronary artery disease and prior coronary artery vascularization. The patient underwent stenting of the RCA last year #3 acute on chronic renal failure #4 paroxysmal atrial fibrillation Plan #1 continue the current medical regimen #2 the patient can be discharged home
[2018-11-01 12:05] LABS: Glucose,Whole Blood 178 mg/dL (75-99)
[2018-11-01 12:27] VITALS: BP 127/71; PULSE 60; TEMP 97.5
--- NOTE | 2018-11-01 12:30 | P.PN ---
Subjective Progress Note Date: 11/01/18 CHIEF COMPLAINT: dark tarry stools HISTORY OF PRESENT ILLNESS: Patient is status post EGD revealing esophagitis and acute gastritis with recent bleeding. Patient denies abdominal pain this morning upon examination. He is tolerating diet. Denies nausea or vomiting. Denies further episodes of black stools. Hemoglobin 11.8. PHYSICAL EXAM: VITAL SIGNS: Reviewed GENERAL: Well-developed in no acute distress. HEENT: No sclera icterus. Extraocular movements grossly intact. Moist buccal mucosa. Head is atraumatic, normocephalic. Hears conversational speech. No nasal drainage. NECK: Supple without lymphadenopathy. CHEST: Non-labored respirations and equal bilateral excursions. CARDIOVASCULAR: Regular rate with regular rhythm. Palpable 2+ radial pulses. ABDOMEN: Soft. Nondistended. Nontender. Positive bowel sounds. MUSCULOSKELETAL: No clubbing or cyanosis NEUROLOGIC: No focal or lateralizing signs. Cranial nerves II through XII grossly intact. PSYCH: Appropriate affect. Alert and oriented to person, place and time. SKIN: Well perfused. Good skin turgor. ASSESSMENT: 1. Melana, status post EGD revealing esophagitis and acute gastritis with recent bleeding 2. History of cardiac stenting, December 2017 3. History of EGD, December 2017, revealing antral gastritis 4. History of atrial fibrillation PLAN: 1. Continue current diet 2. Continue carafate and protonix while inpatient and upon discharge 3. May resume Eliquis tomorrow 4. No plans for colonoscopy at this time 5. Stable for discharge from a surgical standpoint. Patient to follow-up with Dr. High outpatient Nurse practitioner note has been reviewed by physician. Signing provider agrees with the documented findings, assessment, and plan of care. Objective - Vital Signs Vital signs: Vital Signs Temp 97.5 F L 11/01/18 12:00 Pulse 60 11/01/18 12:00 Resp 18 11/01/18 12:00 BP 127/71 11/01/18 12:00 Pulse Ox 96 11/01/18 12:00 Intake & Output 10/31/18 11/01/18 11/01/18 18:59 06:59 18:59 Intake Total 480 240 Output Total 1800 1000 1000 Balance -1320 -760 -1000 Weight 110.5 kg Intake: Oral 480 240 Output: Urine 1800 1000 1000 Uretheral (Wood) 1000 Other: Voiding Method Indwelling Catheter Indwelling Catheter Indwelling Catheter - Labs CBC & Chem 7: 11/01/18 07:16 11/01/18 07:16 Labs: Abnormal Lab Results - Last 24 Hours (Table) 10/31/18 10/31/18 11/01/18 Range/Units 16:48 20:34 06:21 Hgb (13.0-17.5) gm/dL Hct (39.0-53.0) % Sodium (137-145) mmol/L Chloride (98-107) mmol/L BUN (9-20) mg/dL Creatinine (0.66-1.25) mg/dL Glucose (74-99) mg/dL POC Glucose (mg/dL) 210 H 154 H 151 H (75-99) mg/dL 11/01/18 11/01/18 11/01/18 Range/Units 07:16 07:16 12:01 Hgb 11.8 L (13.0-17.5) gm/dL Hct 36.6 L (39.0-53.0) % Sodium 136 L (137-145) mmol/L Chloride 96 L (98-107) mmol/L BUN 67 H (9-20) mg/dL Creatinine 5.00 H (0.66-1.25) mg/dL Glucose 157 H (74-99) mg/dL POC Glucose (mg/dL) 178 H (75-99) mg/dL
--- NOTE | 2018-11-01 16:46 | P.DS ---
Providers Date of admission: 10/25/18 14:36 Expected date of discharge: 11/01/18 Attending physician: Dane Chowdary MD Consults: 10/25/18 14:50 Consult Physician Stat Consulting Provider: Lorenza Stovall Consult Reason/Comments: Acute Renal failure Do you want consulting provider notified?: Yes 10/26/18 02:03 Consult Physician Urgent Consulting Provider: Malachi Bills Consult Reason/Comments: CHF respiratory distress left plural effusion Do you want consulting provider notified?: Yes, Notify in am 10/26/18 18:15 Consult Physician Routine Consulting Provider: Radha Paulino Consult Reason/Comments: chf Do you want consulting provider notified?: Yes 10/28/18 21:13 Consult Physician Routine Consulting Provider: Phill High Consult Reason/Comments: Black tarry stools Do you want consulting provider notified?: Yes, Notify in am Primary care physician: Elena Rodriguez Hospital Course: Final Diagnoses: -Acute renal failure, possibly prerenal secondary to ATN, cardiorenal syndrome and use of NSAIDs. Chronic kidney disease, stage III secondary to diabetic kidney disease, baseline 1.4. -Change in mental status, acute metabolic encephalopathy secondary to the above, and multifactorial -Acute on chronic hypoxic respiratory failure secondary to fluid overload secondary to #1 -Acute left pleural effusion -Paroximal atrial fibrillation, new onset -Ileus -Anemia, of chronic disease -Thrombocytopenia -History of nephrolithiasis -COPD -History of CVA, TIA -Diabetes mellitus type 2 -Gastroesophageal reflux disease -Hypertension -CAD, history of stent, December 2017 -Sleep apnea, wears CPAP occasionally -History of anxiety, depression -History of nicotine dependence -Obesity, BMI 37.7 -Metabolic acidosis secondary to acute renal failure, improving -Hypomagnesemia secondary to diuresing -Melena Stools, possible GI bleed, endoscopy reporting acute gastritis with recent bleed. Hospital course:This is 68-year-old gentleman admitted with acute renal failure, acute metabolic encephalopathy, acute hypoxic respiratory failure, acute left pleural effusion and multiple other medical issues. Telemetry reporting paroximal A. fib, during the night ,currently sinus rhythm. Complains of bilateral flank pain, left worse than the right, the patient with history of kidney stones. Maintained on IV fluids with renal function improving, creatinine down to 5.91. Continues on nebulized bronchodilators, ceftriaxone. Diuresing well on Lasix IV push with 24-hour I&O reflecting a negative fluid balance. Maintaining O2 sats in the 90s on 2 L high flow nasal cannula. Afebrile. Normal WBC. Troponin 0.035. 10/29/2018 Eliquis initiated yesterday ,developed black tarry stools 2 during the night. Hemoglobin currently 11.3. Aspirin, Plavix, Eliquis placed on hold in a patient with recent cardiac stents, December 2017. Plavix actually discontinued as per cardiology. Evaluated by surgery and endoscopy planned for tomorrow. Diuresing well on Lasix IV push as per nephrology. Creatinine slowly improving, down to 5.55. Magnesium 1.5. 10/30/2018. NPO,Scheduled for EGD today with general surgery. Hemoglobin stable, 11.2. No bleeding reported, no further black tarry stools. Renal function continues to slowly improve, down to 5.1. Complains of bilateral flank pain. Afebrile, normal WBC. Magnesium 1.8. Denies chest pain, palpitations or shortness of breath. Maintain high signs in the 90s on room air. 10/31/2018 No further bleeding, hemoglobin 10.9. Denies abdominal pain. Creatinine continues trending down to 4.95. Complains of bilateral flank pain/lower back pain which patient states has been present for over a week prior to admission. Underwent EGD yesterday reporting moderate gastritis secondary to recent bleeding with Carafate added to med regime in addition to PPI, with recommendations of holding anticoagulation at this time. No plans for colonoscopy at this time. Significant clinical improvement. Hemoglobin stable. Eliquis resumed, addition of baby aspirin to be resumed in clinic with PCP. Cleared by all consults for discharge. Patient is being discharged home in a stable condition with guarded prognosis. EXAM: GENERAL: Alert and oriented 3, no acute distress CARDIOVASCULAR: S1, S2 regular. Systolic murmur. RESPIRATION: Breath sounds diminished in the bases. No rhonchi, fine left basilar crackles ,No wheezing ABDOMEN: Soft, nontender, nondistended . No guarding. no masses palpable. Bowel sounds heard. NERVOUS SYSTEM: No focal deficits. The impression and plan of care has been dictated as directed. : I performed a history and examination of this patient, discussed the same with the dictator. I agree with the dictator's note ,documented as a scribe. Any additional findings or plans will be noted. Time taken: 35 minutes Patient Condition at Discharge: Stable Plan - Discharge Summary Discharge Rx Participant: Yes New Discharge Prescriptions: New Sucralfate [Carafate] 1 gm PO AC-BID #60 tab Metoprolol Tartrate [Lopressor] 25 mg PO BID #60 tab Acetaminophen Tab [Tylenol] 650 mg PO Q6HR PRN tab PRN Reason: Mild Pain Or Fever > 100.5 INSULIN LISPRO (HumaLOG) [humaLOG] 0 unit SQ ACHS #1 vial Apixaban [Eliquis] 5 mg PO BID #60 tab Furosemide [Lasix] 40 mg PO DAILY #30 tablet Continue traMADol HCL [Tramadol HCl] 50 mg PO TID PRN PRN Reason: Pain amLODIPine BESYLATE [Amlodipine Besylate] 10 mg PO QAM Atorvastatin [Lipitor] 80 mg PO HS #90 tab Omeprazole 40 mg PO DAILY #60 capsule. hydrALAZINE HCL [Apresoline] 25 mg PO DAILY cloNIDine HCL [Catapres] 0.1 mg PO DAILY Gabapentin [Neurontin] 300 mg PO BID Gabapentin 600 mg PO BID Citalopram Hydrobromide [Citalopram HBr] 40 mg PO DAILY Discontinued Clopidogrel [Plavix] 75 mg PO DAILY #90 tab Ranitidine HCl 150 mg PO BID metFORMIN HCL 1,000 mg PO BID Hydrochlorothiazide [Hydrodiuril] 25 mg PO DAILY HYDROcodone/APAP 5-325MG [[place] 5-325] 1 tab PO Q6HR PRN PRN Reason: Pain Discharge Medication List amLODIPine BESYLATE [Amlodipine Besylate] 10 mg PO QAM 10/26/15 [History] traMADol HCL [Tramadol HCl] 50 mg PO TID PRN 10/26/15 [History] Atorvastatin [Lipitor] 80 mg PO HS #90 tab 12/11/17 [Rx] Omeprazole 40 mg PO DAILY #60 capsule. 12/31/17 [Rx] Citalopram Hydrobromide [Citalopram HBr] 40 mg PO DAILY 10/25/18 [History] Gabapentin 600 mg PO BID 10/25/18 [History] Gabapentin [Neurontin] 300 mg PO BID 10/25/18 [History] cloNIDine HCL [Catapres] 0.1 mg PO DAILY 10/25/18 [History] hydrALAZINE HCL [Apresoline] 25 mg PO DAILY 10/25/18 [History] Acetaminophen Tab [Tylenol] 650 mg PO Q6HR PRN tab 11/01/18 [Rx] Apixaban [Eliquis] 5 mg PO BID #60 tab 11/01/18 [Rx] Furosemide [Lasix] 40 mg PO DAILY #30 tablet 11/01/18 [Rx] INSULIN LISPRO (HumaLOG) [humaLOG] 0 unit SQ ACHS #1 vial 11/01/18 [Rx] Metoprolol Tartrate [Lopressor] 25 mg PO BID #60 tab 11/01/18 [Rx] Sucralfate [Carafate] 1 gm PO AC-BID #60 tab 11/01/18 [Rx] Follow up Appointment(s)/Referral(s): Lorenza Stovall MD [STAFF PHYSICIAN] - 12/17/18 2:20 pm (Sunday) Obinna Eng MD [STAFF PHYSICIAN] - 11/11/18 4:00 pm Elena Rodriguez DO [Primary Care Provider] - 11/08/18 2:45 pm (Sunday with [facility]) Phill High MD [STAFF PHYSICIAN] - 11/07/18 3:30 pm Ambulatory/Diagnostic Orders: Complete Blood Count w/diff [LAB.AMB] Time Frame: 3 Days, Location: None Selected Patient Instructions/Handouts: Heart Failure (DC), Acute Kidney Injury (DC) Activity/Diet/Wound Care/Special Instructions: MAY RESUME ELIQUIS ON SUNDAY Diuretics as per nephrology.Confirm cardiology F/U apt prior to DC. Eliquis resumed, Baby Aspirin to be added on in clinic/F/U with PCP. Eliquis covered with $47 copay - free 30 day coupon applied Phone number for [employer] patient support program - No Nsaids; No Motrin, No ALieve. Discharge Disposition: HOME SELF-CARE
--- NOTE | 2018-11-01 18:38 | PN ---
PROGRESS NOTE Patient is seen for followup for acute kidney injury. Patient's renal function has improved; however, serum creatinine is still staying at about 5 mg/dL. Volume status has improved. Patient has been maintained on IV Lasix, which will be switched over to p.o., and patient can be discharged today. There is no evidence of obstructive uropathy on the ultrasound and the UA does show evidence of protein and trace blood. If his renal function does not continue to improve, patient may need further workup as outpatient. So far, all his serologies are negative, including ANCA, JACKIE, C3, C4 and urine immunofixation. Hepatitis serologies are also negative. Patient may need a kidney biopsy if renal function does not improve. His previous creatinine was 1.45 on 06/06/2018. On examination today, patient is comfortable. Blood pressure is 127/71, heart rate of 60 per minute. He is afebrile. EXAMINATION OF THE HEART: S1 and S2. EXAMINATION OF LUNGS: Bilateral breath sounds are heard. ABDOMEN: Soft, non-tender. Examination of lower extremities shows no significant edema. [employer] exam is grossly intact. Labs show sodium 136, potassium 4.4, BUN 67, serum creatinine 5.0, hemoglobin 11.8 g/dL. ASSESSMENT: 1. Acute kidney injury, acute tubular necrosis, not improving significantly; serum creatinine staying about 5. Previous creatinine was about 1.3 to 1.4 mg/dL in May of 2018. All serologies are negative and there is no evidence of obstructive uropathy. Patient will need close followup as outpatient and possible kidney biopsy if renal function does not improve. 2. Metabolic acidosis, status post sodium bicarb, currently resolved. 3. Atrial fibrillation with controlled ventricular response. 4. Chronic kidney disease, stage III, most likely secondary to diabetic kidney disease. However, patient may need a kidney biopsy to evaluate for any other underlying etiology if his renal function does not continue to improve. 5. Congestive heart failure/hypervolemia, currently improved. Patient can go home on Lasix 40 mg p.o. daily. PLAN: Switch to 40 mg of Lasix p.o. daily. Follow up as outpatient in about one week's time. MMODL / IJN: [id number] /
== END 2018-11-01 14:17 | disposition home or self-care (01) | DRG 682 ==
LOC: EC 09:57 → 4SSUR 14:36 → 3SCARD 21:35
PROVIDERS: ADMIT Family Medicine; ATTEND Family Medicine
PROC: 5A09457 Assistance with Respiratory Ventilation, 24-96 Consecutive Hours, Continuous Positive Airway Pressure (ICD-10-PCS; 2018-10-26)
PROC: 0DJ08ZZ Inspection of Upper Intestinal Tract, Via Natural or Artificial Opening Endoscopic (ICD-10-PCS; principal; 2018-10-30 11:50)
DX: N17.0 Acute kidney failure with tubular necrosis (principal); G93.41 Metabolic encephalopathy; I50.33 Acute on chronic diastolic (congestive) heart failure; J96.21 Acute and chronic respiratory failure with hypoxia; K29.01 Acute gastritis with bleeding; E87.2 Acidosis; I13.0 Hypertensive heart and chronic kidney disease with heart failure and stage 1 through stage 4 chronic kidney disease, or unspecified chronic kidney disease; K22.10 Ulcer of esophagus without bleeding; K56.7 Ileus, unspecified; D63.8 Anemia in other chronic diseases classified elsewhere; D69.6 Thrombocytopenia, unspecified; E11.21 Type 2 diabetes mellitus with diabetic nephropathy; E11.22 Type 2 diabetes mellitus with diabetic chronic kidney disease; Z68.39 Body mass index [BMI] 39.0-39.9, adult; E78.5 Hyperlipidemia, unspecified; E83.42 Hypomagnesemia; E87.5 Hyperkalemia; F17.210 Nicotine dependence, cigarettes, uncomplicated; F32.9 Major depressive disorder, single episode, unspecified; F41.9 Anxiety disorder, unspecified; G25.3 Myoclonus; G47.33 Obstructive sleep apnea (adult) (pediatric); G89.29 Other chronic pain; I25.10 Atherosclerotic heart disease of native coronary artery without angina pectoris; I35.0 Nonrheumatic aortic (valve) stenosis; I48.0 Paroxysmal atrial fibrillation; J44.9 Chronic obstructive pulmonary disease, unspecified; K21.9 Gastro-esophageal reflux disease without esophagitis; M19.90 Unspecified osteoarthritis, unspecified site; N18.3 Chronic kidney disease, stage 3 (moderate); N20.0 Calculus of kidney; T39.395A Adverse effect of other nonsteroidal anti-inflammatory drugs [NSAID], initial encounter; E66.01 Morbid (severe) obesity due to excess calories; T50.2X5A Adverse effect of carbonic-anhydrase inhibitors, benzothiadiazides and other diuretics, initial encounter; Z79.01 Long term (current) use of anticoagulants; Z79.02 Long term (current) use of antithrombotics/antiplatelets; Z79.4 Long term (current) use of insulin; Z79.82 Long term (current) use of aspirin; Z79.899 Other long term (current) drug therapy; Z80.9 Family history of malignant neoplasm, unspecified; Z86.73 Personal history of transient ischemic attack (TIA), and cerebral infarction without residual deficits; Z87.442 Personal history of urinary calculi; Z91.19 Patient's noncompliance with other medical treatment and regimen; Z95.5 Presence of coronary angioplasty implant and graft; Z88.3 Allergy status to other anti-infective agents; Z90.49 Acquired absence of other specified parts of digestive tract
CPT/HCPCS: 36415; 36600; 43235; 70450; 71045; 74018; 74176; 76770; 80048; 80053; 80074; 80306; 81001; 82570; 82805; 83605; 83615; 83690; 83735; 83880; 84100; 84156; 84484; 85025; 85610; 86038; 86160; 86162; 86225; 86255; 86335; 93306; 94640; 94660; 94760; 96361; 96374; 96375; 96376; 99285

== ENCOUNTER → 2018-11-12 | Outpatient (CLI) | payer MEDICARE ==
[2018-11-12 15:39] LABS: Basophils # (A) 0.1 k/uL (0-0.2); Basophils % (A) 1 %; Eosinophils # (A) 0.2 k/uL (0-0.7); Eosinophils % (A) 3 %; HCT 28.4 % (39.0-53.0); HGB 9.4 gm/dL (13.0-17.5); Lymphocytes # (A) 1.3 k/uL (1.0-4.8); Lymphocytes % (A) 16 %; MCH 27.4 pg (25.0-35.0); MCV 82.8 fL (80.0-100.0); Mean Platelet Volume 7.7; Monocytes # (A) 0.6 k/uL (0-1.0); Monocytes % (A) 7 %; Neutrophils # (A) 5.8 k/uL (1.3-7.7); Neutrophils % (A) 71 %; Platelet Count 176 k/uL (150-450); RBC 3.43 m/uL (4.30-5.90); RDW 15.5 % (11.5-15.5); WBC 8.2 k/uL (3.8-10.6)
[2018-11-13 00:29] LABS: African American GFR (CKD) 12.8 (60.0-200.0); Albumin 3.9 g/dL (3.80-4.90); Albumin/Globulin Ratio 2.29 (1.60-3.17); Anion Gap 10.6 mmol/L (4.00-12.00); BUN/Creat Ratio 11.8 Ratio (12.00-20.00); Calcium 8.6 mg/dL (8.7-10.3); Carbon Dioxide 24.4 mmol/L (21.6-31.8); Globulin 1.7 g/dL (1.6-3.3); Potassium 5.9 mmol/L (3.5-5.5); Total Bilirubin 0.2 mg/dL (0.3-1.2); Total Protein 5.6 g/dL (6.2-8.2)
== END | disposition home or self-care (01) ==
LOC: LABWHC1 15:01
PROVIDERS: ATTEND Physician Assistant Medical
DX: E11.9 Type 2 diabetes mellitus without complications (principal); G93.41 Metabolic encephalopathy
CPT/HCPCS: 36415; 80053; 85025

== ENCOUNTER 2019-03-17 07:32 | Emergency (ER) | payer MEDICARE ==
[2019-03-17 08:02] VITALS: RESP 18
[2019-03-17] MEDS ORDERED: CEPHALEXIN 500MG STARTER PACK 4 CAP BTL PO STA (08:25)
[2019-03-17] MEDS ORDERED: KETOROLAC 30 MG/ML 1 ML VIAL IM STA (08:25)
[2019-03-17] MEDS ORDERED: MUPIROCIN 2% OINT 22 GM TUBE TOPICAL STA (08:25)
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
[2019-03-17] MEDS ORDERED: DIPH,PERTUS(ACELL)TETVAC-LF 0.5 ML VIAL IM ONE (08:53)
[2019-03-17 09:31] VITALS: BP 172/79; PULSE 57; TEMP 97.8
== END 2019-03-17 09:28 | disposition home or self-care (01) ==
LOC: EC 07:32
DX: L03.115 Cellulitis of right lower limb (principal); T25.421A Corrosion of unspecified degree of right foot, initial encounter; I10 Essential (primary) hypertension; M19.90 Unspecified osteoarthritis, unspecified site; G47.30 Sleep apnea, unspecified; F32.9 Major depressive disorder, single episode, unspecified; F41.9 Anxiety disorder, unspecified; Z87.891 Personal history of nicotine dependence; Z88.1 Allergy status to other antibiotic agents; Z79.891 Long term (current) use of opiate analgesic; Z79.899 Other long term (current) drug therapy; Z99.89 Dependence on other enabling machines and devices; Z23 Encounter for immunization; X58.XXXA Exposure to other specified factors, initial encounter
CPT/HCPCS: 90715; 99283; 96372; 90471; J1885

== ENCOUNTER 2019-03-27 08:56 | Emergency (ER) | payer MEDICARE ==
[2019-03-27 09:00] VITALS: TEMP 97.6
[2019-03-27] MEDS ORDERED: diphenhydrAMINE 50 MG/ML 1 ML VIAL IM STA (09:15)
--- NOTE | 2019-03-27 09:27 | ED ---
General Adult HPI - General Chief complaint: Skin/Abscess/Foreign Body Stated complaint: itchy hands Time Seen by Provider: 03/27/19 09:08 Source: patient, RN notes reviewed Mode of arrival: ambulatory Limitations: no limitations - History of Present Illness Initial comments: 69-year-old male with a past medical history of COPD, CVA, diabetes mellitus, GERD, hypertension presents to the emergency department for chief point of itching. Patient states this started about 4 days ago. Patient states the palms of his hand in his generalized body feels itchy. States he has been taking Benadryl without much improvement. States he was prescribed Motrin and Pepcid 2 weeks ago and thinks could be related to this. Denies any swelling of the lips tongue or throat.Patient has no other complaints at this time including shortness of breath, chest pain, abdominal pain, nausea or vomiting, headache, or visual changes. - Related Data Home Medications Medication Instructions Recorded Confirmed amLODIPine BESYLATE [Amlodipine 10 mg PO QAM 10/26/15 10/25/18 Besylate] traMADol HCL [Tramadol HCl] 50 mg PO TID PRN 10/26/15 10/25/18 Citalopram Hydrobromide 40 mg PO DAILY 10/25/18 10/25/18 [Citalopram HBr] Gabapentin 600 mg PO BID 10/25/18 10/25/18 Gabapentin [Neurontin] 300 mg PO BID 10/25/18 10/25/18 cloNIDine HCL [Catapres] 0.1 mg PO DAILY 10/25/18 10/25/18 hydrALAZINE HCL [Apresoline] 25 mg PO DAILY 10/25/18 10/25/18 Previous Rx's Medication Instructions Recorded Atorvastatin [Lipitor] 80 mg PO HS #90 tab 12/11/17 Omeprazole 40 mg PO DAILY #60 capsule. 12/31/17 Acetaminophen Tab [Tylenol] 650 mg PO Q6HR PRN tab 11/01/18 Apixaban [Eliquis] 5 mg PO BID #60 tab 11/01/18 Furosemide [Lasix] 40 mg PO DAILY #30 tablet 11/01/18 INSULIN LISPRO (HumaLOG) [humaLOG] 0 unit SQ ACHS #1 vial 11/01/18 Metoprolol Tartrate [Lopressor] 25 mg PO BID #60 tab 11/01/18 Sucralfate [Carafate] 1 gm PO AC-BID #60 tab 11/01/18 Cephalexin [Keflex] 500 mg PO Q6HR #40 cap 03/17/19 Ibuprofen [Motrin] 600 mg PO Q8HR PRN #30 tab 03/17/19 hydrOXYzine HCL [Atarax] 25 mg PO TID PRN #14 tab 03/27/19 Allergies Allergy/AdvReac Type Severity Reaction Status Date / Time neomycin Allergy Itching Verified 03/27/19 09:00 Review of Systems ROS Statement: Those systems with pertinent positive or pertinent negative responses have been documented in the HPI. ROS Other: All systems not noted in ROS Statement are negative. Past Medical History Past Medical History: COPD, CVA/TIA, Diabetes Mellitus, GERD/Reflux, Hyperte nsion, Osteoarthritis (OA), Sleep Apnea/CPAP/BIPAP Additional Past Medical History / Comment(s): having "stomach problems",has cpap History of Any Multi-Drug Resistant Organisms: None Reported Past Surgical History: Cholecystectomy, Heart Catheterization With Stent, Hernia Repair, Orthopedic Surgery Additional Past Surgical History / Comment(s): heart stents x 3,carpal tunnel, right carotid, RIGHT HIP with pin, rt shoulder, umbilical hernia Past Anesthesia/Blood Transfusion Reactions: No Reported Reaction Date of Last Stent Placement:: 12-10-17 Past Psychological History: Anxiety, Depression Smoking Status: Former smoker Past Alcohol Use History: None Reported Past Drug Use History: None Reported - Past Family History Mother Family Medical History: Cancer General Exam Limitations: no limitations General appearance: alert, in no apparent distress Head exam: Present: atraumatic, normocephalic, normal inspection Eye exam: Present: normal appearance, PERRL, EOMI. Absent: scleral icterus, conjunctival injection, periorbital swelling ENT exam: Present: normal exam, mucous membranes moist Neck exam: Present: normal inspection. Absent: tenderness, meningismus, lymphadenopathy Respiratory exam: Present: normal lung sounds bilaterally. Absent: respiratory distress, wheezes, rales, rhonchi, stridor Cardiovascular Exam: Present: regular rate, normal rhythm, normal heart sounds. Absent: systolic murmur, diastolic murmur, rubs, gallop, clicks Skin exam: Present: warm, dry, intact, normal color. Absent: rash (No jaundiced or uremic appearance) Course Vital Signs 03/27/19 08:58 Temperature 97.6 F Pulse Rate 59 L Respiratory 20 Rate Blood Pressure 154/70 O2 Sat by Pulse 99 Oximetry Medical Decision Making - Medical Decision Making Physical exam is unremarkable. Vitals are stable. I do not see any obvious rash. Patient has complaints of generalized itching. I do not see any evidence of uremia or jaundice appearance. Patient denies any joseph-colored stools or T- colored urine. I did do basic labs this patient had a serious acute renal failure secondary to NSAID usage in October. At this time his creatinine is 3.13. I called and discussed this case with Dr. Rodriguez his primary care provider. States that this has been his baseline since he was released from the hospital. She states she will see him tomorrow in the office. At this time patient likely having ALLERGIC reaction secondary to new medication initiation. Recommended he stop Motrin and Pepcid. Recommend he try Atarax and follow-up with primary care. He will return here if he has any worsening symptoms. - Lab Data Result diagrams: 03/27/19 09:49 03/27/19 09:49 Lab Results 03/27/19 03/27/19 Range/Units 09:49 09:49 WBC 6.5 (3.8-10.6) k/uL RBC 3.79 L (4.30-5.90) m/uL Hgb 10.8 L (13.0-17.5) gm/dL Hct 31.8 L (39.0-53.0) % MCV 84.0 (80.0-100.0) fL MCH 28.4 (25.0-35.0) pg MCHC 33.8 (31.0-37.0) g/dL RDW 14.3 (11.5-15.5) % Plt Count 121 L (150-450) k/uL Neutrophils % 77 % Lymphocytes % 12 % Monocytes % 7 % Eosinophils % 3 % Basophils % 0 % Neutrophils # 5.0 (1.3-7.7) k/uL Lymphocytes # 0.8 L (1.0-4.8) k/uL Monocytes # 0.4 (0-1.0) k/uL Eosinophils # 0.2 (0-0.7) k/uL Basophils # 0.0 (0-0.2) k/uL Sodium 140 (137-145) mmol/L Potassium 4.7 (3.5-5.1) mmol/L Chloride 106 (98-107) mmol/L Carbon Dioxide 23 (22-30) mmol/L Anion Gap 11 mmol/L BUN 41 H (9-20) mg/dL Creatinine 3.13 H (0.66-1.25) mg/dL Est GFR (CKD-EPI)AfAm 22 (>60 ml/min/1.73 sqM) Est GFR (CKD-EPI)NonAf 19 (>60 ml/min/1.73 sqM) Glucose 225 H (74-99) mg/dL Calcium 8.3 L (8.4-10.2) mg/dL Total Bilirubin 0.4 (0.2-1.3) mg/dL AST 20 (17-59) U/L ALT 11 (4-49) U/L Alkaline Phosphatase 72 (38-126) U/L Total Protein 5.8 L (6.3-8.2) g/dL Albumin 3.4 L (3.5-5.0) g/dL Disposition Clinical Impression: Itching Disposition: HOME SELF-CARE Condition: Good Instructions (If sedation given, give patient instructions): Itchy Skin (ED) Additional Instructions: Discontinue motrin. Please take Atarax as needed but do not drive or operate machinery while taking this. Please follow-up with Dr Hernandez. Call today for an appointment because she would like to see you in the office tomorrow. Return to the emergency department if you have any worsening symptoms. Prescriptions: hydrOXYzine HCL [Atarax] 25 mg PO TID PRN #14 tab PRN Reason: Itching Is patient prescribed a controlled substance at d/c from ED?: No Referrals: Elena Rodriguez DO [Primary Care Provider] - 1-2 days Time of Disposition: 10:59
[2019-03-27 10:01] LABS: Basophils % (A) 0 %; Eosinophils # (A) 0.2 k/uL (0-0.7); Eosinophils % (A) 3 %; HCT 31.8 % (39.0-53.0); HGB 10.8 gm/dL (13.0-17.5); Lymphocytes # (A) 0.8 k/uL (1.0-4.8); Lymphocytes % (A) 12 %; MCH 28.4 pg (25.0-35.0); MCHC 33.8 g/dL (31.0-37.0); Mean Platelet Volume 9.3; Monocytes # (A) 0.4 k/uL (0-1.0); Monocytes % (A) 7 %; Neutrophils % (A) 77 %; Platelet Count 121 k/uL (150-450); RBC 3.79 m/uL (4.30-5.90); RDW 14.3 % (11.5-15.5); WBC 6.5 k/uL (3.8-10.6)
[2019-03-27 10:14] LABS: Albumin 3.4 g/dL (3.5-5.0); Calcium 8.3 mg/dL (8.4-10.2); Potassium 4.7 mmol/L (3.5-5.1); Total Bilirubin 0.4 mg/dL (0.2-1.3); Total Protein 5.8 g/dL (6.3-8.2)
[2019-03-27] MEDS ORDERED: SODIUM CHLORIDE 0.9% 1,000 ML IV STA (10:19)
[2019-03-27 11:23] VITALS: BP 132/76; PULSE 76; RESP 16
== END 2019-03-27 11:14 | disposition home or self-care (01) ==
LOC: EC 08:56
DX: L29.9 Pruritus, unspecified (principal); I10 Essential (primary) hypertension; F41.9 Anxiety disorder, unspecified; F32.9 Major depressive disorder, single episode, unspecified; M19.90 Unspecified osteoarthritis, unspecified site; G47.30 Sleep apnea, unspecified; Z99.89 Dependence on other enabling machines and devices; Z86.73 Personal history of transient ischemic attack (TIA), and cerebral infarction without residual deficits; Z95.5 Presence of coronary angioplasty implant and graft; Z87.891 Personal history of nicotine dependence; Z79.891 Long term (current) use of opiate analgesic; Z79.899 Other long term (current) drug therapy; Z88.1 Allergy status to other antibiotic agents; Z53.8 Procedure and treatment not carried out for other reasons
CPT/HCPCS: 36415; 80053; 85025; 99283; 96372; J1200

== ENCOUNTER 2019-04-20 08:47 | Inpatient (IN) | payer MEDICARE ==
[2019-04-20] MEDS ORDERED: SODIUM CHLORIDE 0.9% 1,000 ML IV STA (09:18)
[2019-04-20] MEDS ORDERED: ONDANSETRON 4 MG/2 ML VIAL IVP STA (09:18)
[2019-04-20 09:41] LABS: Basophils % (A) 1 %; Eosinophils # (A) 0.2 k/uL (0-0.7); Eosinophils % (A) 4 %; HGB 9.6 gm/dL (13.0-17.5); Lymphocytes # (A) 0.9 k/uL (1.0-4.8); Lymphocytes % (A) 17 %; MCH 26.6 pg (25.0-35.0); MCHC 31.9 g/dL (31.0-37.0); MCV 83.5 fL (80.0-100.0); Mean Platelet Volume 9.5; Monocytes # (A) 0.4 k/uL (0-1.0); Monocytes % (A) 8 %; Neutrophils # (A) 3.5 k/uL (1.3-7.7); Neutrophils % (A) 68 %; Platelet Count 123 k/uL (150-450); RDW 14.1 % (11.5-15.5); WBC 5.2 k/uL (3.8-10.6)
[2019-04-20 09:49] LABS: ALT 157 U/L (4-49); AST 192 U/L (17-59); African American GFR (CKD) 21 (>60 ml/min/1.73 sqM); Albumin 3.6 g/dL (3.5-5.0); Alcohol <10 mg/dL; Alkaline Phosphatase 161 U/L (38-126); Amylase 37 U/L (30-110); Anion Gap 11 mmol/L; Blood Urea Nitrogen 40 mg/dL (9-20); Calcium 8.4 mg/dL (8.4-10.2); Carbon Dioxide 18 mmol/L (22-30); Chloride 110 mmol/L (98-107); Glucose 159 mg/dL (74-99); Non-African American GFR(CKD) 18 (>60 ml/min/1.73 sqM); Potassium 4.5 mmol/L (3.5-5.1); Sodium 139 mmol/L (137-145); Total Bilirubin 0.6 mg/dL (0.2-1.3); Total Protein 6.1 g/dL (6.3-8.2)
[2019-04-20 09:50] LABS: INR 1.2 (<1.2); Partial Thromboplastin Time 23.7 sec (22.0-30.0); Prothrombin Time 11.7 sec (9.0-12.0)
--- NOTE | 2019-04-20 10:09 | ED ---
Abdominal Pain HPI <Malachi Bahena - Last Filed: 04/20/19 12:58> - General Source: patient, RN notes reviewed, old records reviewed Mode of arrival: ambulatory Limitations: no limitations <LalagudeliasashaSkylar - Last Filed: 04/20/19 13:02> - General Chief Complaint: Abdominal Pain Stated Complaint: Stomach pain/bowel pain Time Seen by Provider: 04/20/19 09:03 - History of Present Illness Initial Comments: Patient is a 69-year-old male presents emergency department today with abdominal pain, diarrhea 2 weeks. Past medical history of COPD, CVA, diabetes, hypertension. Surgical history includes cholecystectomy, heart catheterizations with stents. Hernia repairs orthopedic surgeries. He states that he has had no nausea or vomiting. He has followed with his PCP and left distal sample reports no further follow-up. He states he had significant diarrhea and abdominal cramping this morning and prompted him to come to the emergency room. Upon being triaged Patient did state he has had some vague suicidal thoughts, in relation to have his treats him and has just been feeling generally unwell the past few weeks. Patient reports that he has no specific plan. Does not see a counselor. (Skylar Rojas) - Related Data Home Medications Medication Instructions Recorded Confirmed amLODIPine BESYLATE [Amlodipine 10 mg PO QAM 10/26/15 10/25/18 Besylate] traMADol HCL [Tramadol HCl] 50 mg PO TID PRN 10/26/15 10/25/18 Citalopram Hydrobromide 40 mg PO DAILY 10/25/18 10/25/18 [Citalopram HBr] Gabapentin 600 mg PO BID 10/25/18 10/25/18 Gabapentin [Neurontin] 300 mg PO BID 10/25/18 10/25/18 cloNIDine HCL [Catapres] 0.1 mg PO DAILY 10/25/18 10/25/18 hydrALAZINE HCL [Apresoline] 25 mg PO DAILY 10/25/18 10/25/18 Previous Rx's Medication Instructions Recorded Atorvastatin [Lipitor] 80 mg PO HS #90 tab 12/11/17 Omeprazole 40 mg PO DAILY #60 capsule. 12/31/17 Acetaminophen Tab [Tylenol] 650 mg PO Q6HR PRN tab 11/01/18 Apixaban [Eliquis] 5 mg PO BID #60 tab 11/01/18 Furosemide [Lasix] 40 mg PO DAILY #30 tablet 11/01/18 INSULIN LISPRO (HumaLOG) [humaLOG] 0 unit SQ ACHS #1 vial 11/01/18 Metoprolol Tartrate [Lopressor] 25 mg PO BID #60 tab 11/01/18 Sucralfate [Carafate] 1 gm PO AC-BID #60 tab 11/01/18 Cephalexin [Keflex] 500 mg PO Q6HR #40 cap 03/17/19 Ibuprofen [Motrin] 600 mg PO Q8HR PRN #30 tab 03/17/19 hydrOXYzine HCL [Atarax] 25 mg PO TID PRN #14 tab 03/27/19 Allergies Allergy/AdvReac Type Severity Reaction Status Date / Time neomycin Allergy Itching Verified 04/20/19 08:48 Review of Systems ROS Other: All systems not noted in ROS Statement are negative. <Malachi Bahena - Last Filed: 04/20/19 12:58> ROS Other: All systems not noted in ROS Statement are negative. <Skylar Rojas - Last Filed: 04/20/19 13:02> ROS Statement: Those systems with pertinent positive or pertinent negative responses have been documented in the HPI. Past Medical History Past Medical History: COPD, CVA/TIA, Diabetes Mellitus, GERD/Reflux, Hypertension, Osteoarthritis (OA), Sleep Apnea/CPAP/BIPAP Additional Past Medical History / Comment(s): having "stomach problems",has cpap History of Any Multi-Drug Resistant Organisms: None Reported Past Surgical History: Cholecystectomy, Heart Catheterization With Stent, Hernia Repair, Orthopedic Surgery Additional Past Surgical History / Comment(s): heart stents x 3,carpal tunnel, right carotid, RIGHT HIP with pin, rt shoulder, umbilical hernia Past Anesthesia/Blood Transfusion Reactions: No Reported Reaction Date of Last Stent Placement:: 12-10-17 Past Psychological History: Anxiety, Depression Smoking Status: Former smoker Past Alcohol Use History: None Reported Past Drug Use History: None Reported - Past Family History Mother Family Medical History: Cancer <Skylar Rojas - Last Filed: 04/20/19 13:02> General Exam Limitations: no limitations General appearance: alert, in no apparent distress Head exam: Present: atraumatic, normocephalic, normal inspection Eye exam: Present: normal appearance, PERRL, EOMI. Absent: scleral icterus, conjunctival injection, periorbital swelling ENT exam: Present: normal exam, mucous membranes moist Neck exam: Present: normal inspection. Absent: tenderness, meningismus, lymphadenopathy Respiratory exam: Present: normal lung sounds bilaterally. Absent: respiratory distress, wheezes, rales, rhonchi, stridor Cardiovascular Exam: Present: regular rate GI/Abdominal exam: Present: soft, normal bowel sounds. Absent: distended, tenderness, guarding, rebound, rigid Extremities exam: Present: normal inspection, full ROM, normal capillary refill. Absent: tenderness, pedal edema, joint swelling, calf tenderness Back exam: Present: normal inspection Neurological exam: Present: alert, oriented X3, CN II-XII intact Psychiatric exam: Present: normal affect, normal mood Skin exam: Present: warm, dry, intact, normal color. Absent: rash <Skylar Rojas - Last Filed: 04/20/19 13:02> Course <Malachi Bahena - Last Filed: 04/20/19 12:58> Vital Signs 04/20/19 08:48 Temperature 97.9 F Pulse Rate 59 L Respiratory 18 Rate Blood Pressure 150/70 O2 Sat by Pulse 98 Oximetry - Reevaluation(s) Reevaluation #1: 04/20/19 12:58 The supervision: I proceeded [id number] evaluation the patient he did present with complaints of abdominal pain is been long-term his been getting worse very foul-smelling stool. The workup does show evidence of colitis he also has a markedly dilated common bile duct of 3.0 cm he has his gallbladder out in the past did seem he is depressed and feeling suicidal. A did discuss case with Dr. Miramontes the patient will be admitted to Dr. Miramontes is covering for Dr. Chowdary (Malachi Bahena) Medical Decision Making - Lab Data Result diagrams: 04/20/19 09:00 04/20/19 09:00 <Malachi Bahena - Last Filed: 04/20/19 12:58> - Lab Data Result diagrams: 04/20/19 09:00 04/20/19 09:00 - Radiology Data Radiology results: report reviewed <Skylar Rojas - Last Filed: 04/20/19 13:02> - Medical Decision Making 61-year-old male presents today for abdominal pain diarrhea. Worsening symptoms past 2 weeks of diarrhea. At this time patient's labwork was reviewed. Does have elevated transaminases. History of cholecystectomy. He also complains of diarrhea, concern for possible colitis. C. diff is pending at this time. CT abdomen and pelvis does show some biliary ductal dilation. Evidence of colitis as well. His white blood cell count is within normal limits. Due to his biliary duct dilation Mo the Patient with consult to GI. CT scan finding also noted a lower lobe infiltrate or nodule concerning for possible cancerous etiology versus infectious. I discussed the case with Dr. Bahena who discussed this with Dr. Goldsmith with consult to GI. (Skylar Rojas) - Lab Data Lab Results 04/20/19 04/20/19 04/20/19 Range/Units 09:00 09:00 09:00 WBC 5.2 (3.8-10.6) k/uL RBC 3.60 L (4.30-5.90) m/uL Hgb 9.6 L (13.0-17.5) gm/dL Hct 30.0 L (39.0-53.0) % MCV 83.5 (80.0-100.0) fL MCH 26.6 (25.0-35.0) pg MCHC 31.9 (31.0-37.0) g/dL RDW 14.1 (11.5-15.5) % Plt Count 123 L (150-450) k/uL Neutrophils % 68 % Lymphocytes % 17 % Monocytes % 8 % Eosinophils % 4 % Basophils % 1 % Neutrophils # 3.5 (1.3-7.7) k/uL Lymphocytes # 0.9 L (1.0-4.8) k/uL Monocytes # 0.4 (0-1.0) k/uL Eosinophils # 0.2 (0-0.7) k/uL Basophils # 0.0 (0-0.2) k/uL PT 11.7 (9.0-12.0) sec INR 1.2 H (<1.2) APTT 23.7 (22.0-30.0) sec Sodium 139 (137-145) mmol/L Potassium 4.5 (3.5-5.1) mmol/L Chloride 110 H (98-107) mmol/L Carbon Dioxide 18 L (22-30) mmol/L Anion Gap 11 mmol/L BUN 40 H (9-20) mg/dL Creatinine 3.30 H (0.66-1.25) mg/dL Est GFR (CKD-EPI)AfAm 21 (>60 ml/min/1.73 sqM) Est GFR (CKD-EPI)NonAf 18 (>60 ml/min/1.73 sqM) Glucose 159 H (74-99) mg/dL Calcium 8.4 (8.4-10.2) mg/dL Total Bilirubin 0.6 (0.2-1.3) mg/dL AST 192 H (17-59) U/L ALT 157 H (4-49) U/L Alkaline Phosphatase 161 H (38-126) U/L Total Protein 6.1 L (6.3-8.2) g/dL Albumin 3.6 (3.5-5.0) g/dL Amylase 37 (30-110) U/L Lipase 390 H (23-300) U/L Urine Color Urine Appearance (Clear) Urine pH (5.0-8.0) Ur Specific [place] (1.001-1.035) Urine Protein (Negative) Urine Glucose (UA) (Negative) Urine Ketones (Negative) Urine Blood (Negative) Urine Nitrite (Negative) Urine Bilirubin (Negative) Urine Urobilinogen (<2.0) mg/dL Ur Leukocyte Esterase (Negative) Urine RBC (0-5) /hpf Urine WBC (0-5) /hpf Ur Squamous Epith Cells (0-4) /hpf Urine Mucus (None) /hpf Urine Opiates Screen (NotDetected) Ur Oxycodone Screen (NotDetected) Urine Methadone Screen (NotDetected) Ur Propoxyphene Screen (NotDetected) Ur Barbiturates Screen (NotDetected) U Tricyclic Antidepress (NotDetected) Ur Phencyclidine Scrn (NotDetected) Ur Amphetamines Screen (NotDetected) U Methamphetamines Scrn (NotDetected) U Benzodiazepines Scrn (NotDetected) Urine Cocaine Screen (NotDetected) U Marijuana (THC) Screen (NotDetected) Serum Alcohol <10 mg/dL 04/20/19 Range/Units 12:00 WBC (3.8-10.6) k/uL RBC (4.30-5.90) m/uL Hgb (13.0-17.5) gm/dL Hct (39.0-53.0) % MCV (80.0-100.0) fL MCH (25.0-35.0) pg MCHC (31.0-37.0) g/dL RDW (11.5-15.5) % Plt Count (150-450) k/uL Neutrophils % % Lymphocytes % % Monocytes % % Eosinophils % % Basophils % % Neutrophils # (1.3-7.7) k/uL Lymphocytes # (1.0-4.8) k/uL Monocytes # (0-1.0) k/uL Eosinophils # (0-0.7) k/uL Basophils # (0-0.2) k/uL PT (9.0-12.0) sec INR (<1.2) APTT (22.0-30.0) sec Sodium (137-145) mmol/L Potassium (3.5-5.1) mmol/L Chloride (98-107) mmol/L Carbon Dioxide (22-30) mmol/L Anion Gap mmol/L BUN (9-20) mg/dL Creatinine (0.66-1.25) mg/dL Est GFR (CKD-EPI)AfAm (>60 ml/min/1.73 sqM) Est GFR (CKD-EPI)NonAf (>60 ml/min/1.73 sqM) Glucose (74-99) mg/dL Calcium (8.4-10.2) mg/dL Total Bilirubin (0.2-1.3) mg/dL AST (17-59) U/L ALT (4-49) U/L Alkaline Phosphatase (38-126) U/L Total Protein (6.3-8.2) g/dL Albumin (3.5-5.0) g/dL Amylase (30-110) U/L Lipase (23-300) U/L Urine Color Yellow Urine Appearance Clear (Clear) Urine pH 5.0 (5.0-8.0) Ur Specific [place] 1.011 (1.001-1.035) Urine Protein 1+ H (Negative) Urine Glucose (UA) Negative (Negative) Urine Ketones Negative (Negative) Urine Blood Negative (Negative) Urine Nitrite Negative (Negative) Urine Bilirubin Negative (Negative) Urine Urobilinogen <2.0 (<2.0) mg/dL Ur Leukocyte Esterase Negative (Negative) Urine RBC <1 (0-5) /hpf Urine WBC 1 (0-5) /hpf Ur Squamous Epith Cells <1 (0-4) /hpf Urine Mucus Rare H (None) /hpf Urine Opiates Screen Not Detected (NotDetected) Ur Oxycodone Screen Not Detected (NotDetected) Urine Methadone Screen Not Detected (NotDetected) Ur Propoxyphene Screen Not Detected (NotDetected) Ur Barbiturates Screen Not Detected (NotDetected) U Tricyclic Antidepress Not Detected (NotDetected) Ur Phencyclidine Scrn Not Detected (NotDetected) Ur Amphetamines Screen Not Detected (NotDetected) U Methamphetamines Scrn Not Detected (NotDetected) U Benzodiazepines Scrn Not Detected (NotDetected) Urine Cocaine Screen Not Detected (NotDetected) U Marijuana (THC) Screen Not Detected (NotDetected) Serum Alcohol mg/dL 04/20/19 10:11 EKG shows sinus bradycardia, otherwise normal EKG. Ventricular rate 55 bpm. Verbal 172 ms. QS duration is 94 ms. QT QTc is 42/461 ms. (Skylar Rojas) - Radiology Data CT abdomen and pelvis without contrast shows hepatomegaly. Gross central biliary dilation common bile duct dilation to the lateral head of the pancreas. Gross diverticulosis. Mucosal thickening to the colon. Correlate for colitis. Bronchials thickening left lower lobe question etiology. Fractures including inflammation and peribronchial spread of tumor as well as infectious causes could be considered. (Skylar Rojas) Disposition <Malachi Bahena - Last Filed: 04/20/19 12:58> Is patient prescribed a controlled substance at d/c from ED?: No Time of Disposition: 13:01 <Skylar Rojas - Last Filed: 04/20/19 13:02> Clinical Impression: Common bile duct dilation, Transaminitis, Colitis, Diarrhea Disposition: ADMITTED IP TO THIS [facility] Condition: Stable Referrals: Elena Rodriguez DO [Primary Care Provider] - 1-2 days
--- NOTE | 2019-04-20 10:14 | XR ---
EXAMINATION TYPE: XR KUB , 2 VIEWS DATE OF EXAM ORDERED: 04/20/2019 HISTORY: abdominal pain. COMPARISON: Previous study dated 10/25/2018. FINDINGS: Is elevation of the left hemidiaphragm. The lung bases are otherwise clear. Within the abdomen, the gallbladder has been removed. There is been a previous intramedullary marianna and dynamic hip pinning of the right hip. There are several loops of large and small bowel throughout th e abdomen. There are scattered air-fluid levels. There is no evidence of obstruction or free air. IMPRESSION: FINDINGS MOST CONSISTENT WITH MILD ILEUS.
--- NOTE | 2019-04-20 11:51 | CT ---
EXAMINATION TYPE: CT abdomen pelvis wo con DATE OF EXAM: 04/20/2019 COMPARISON: Previous study dated 10/25/2018. HISTORY: pain, elevated transaminase CT DLP: 1474.4 mGycm Automated exposure control for dose reduction was used. FINDINGS: There is fairly pronounced peribronchial thickening in the left lower lobe. There is some d ependent atelectasis in the lower lobes bilaterally. There is no pleural or pericardial fluid the hea rt is upper limits of normal in size. There is coronary artery calcification as well as other vascula r calcifications. There is elevation of the left hemidiaphragm. This was present previously. The gallbladder is been removed. There is gross central biliary dilatation. The distal common bile du ct measures is much is 3 cm. This is very similar appearance to the previous study. The liver is enla rged measuring 21 cm. The spleen is enlarged measuring 14 cm. There is a splenule in the hilus of the spleen. Both adrenal glands are normal. There is no evidence of hydronephrosis or nephrolithiasis. Limited views of the pancreas are unremarkable. There is no significant retroperitoneal, iliac or inguinal adenopathy. The bladder is unremarkable. There is gross diverticular change throughout the sigmoid region with scattered diverticula elsewhere throughout the left side of the colon. There is some mucosal thickening involving the entire colon. The appendix is unremarkable. Small bowel loops are of normal caliber. There is no free fluid and no free air identified. There is been a right-sided hip pinning. There is degenerative disc disease and hypertrophic spondylo sis throughout the spine. IMPRESSION: 1. HEPATOSPLENOMEGALY. 2. GROSS CENTRAL BILIARY DILATATION AND COMMON BILE DUCT DILATATION TO THE LATERAL HEAD OF THE PANCRE . 3. GROSS DIVERTICULOSIS. 4. MUCOSAL THICKENING THROUGHOUT THE COLON. PLEASE CORRELATE FOR COLITIS. 5. PERIBRONCHIAL THICKENING IN THE LEFT LOWER LOBE OF QUESTIONABLE ETIOLOGY. FRACTURES INCLUDING INFL AMMATION AND PERIBRONCHIAL SPREAD OF TUMOR WELL INFECTIOUS CAUSES WOULD NEED TO BE CONSIDERED.
[2019-04-20 12:40] LABS: Appearance,Urine Clear (Clear); Bilirubin,Urine Negative (Negative); Blood,Urine Negative (Negative); Color,Urine Yellow; Glucose,Urine (UA) Negative (Negative); Ketones,Urine Negative (Negative); Leukocyte Esterase,Urine Negative (Negative); Mucus,Urine Rare /hpf; Nitrite,Urine Negative (Negative); Protein,Urine 1+ (Negative); RBC,Urine <1 /hpf (0-5); Specific Gravity,Urine 1.011 (1.001-1.035); Squamous Epithelial Cell,Urine <1 /hpf (0-4); Urobilinogen,Urine <2.0 mg/dL (<2.0); WBC,Urine 1 /hpf (0-5)
[2019-04-20 12:51] LABS: Amphetamine Screen,Urine Not Detected (NotDetected); Barbiturate Screen,Urine Not Detected (NotDetected); Benzodiazepines Screen,Urine Not Detected (NotDetected); Cocaine Screen,Urine Not Detected (NotDetected); Methadone Screen, Urine Not Detected (NotDetected); Opiate Screen,Urine Not Detected (NotDetected); Oxycodone Screen, Urine Not Detected (NotDetected); Phencyclidine Screen,Urine Not Detected (NotDetected); Tricyclic Antidepressant,Urine Not Detected (NotDetected); Urn Cannabinoid Scrn Not Detected (NotDetected)
[2019-04-20] MEDS ORDERED: ACETAMINOPHEN TAB 325 MG TAB PO PRN ×2 (13:03→18:39)
[2019-04-20] MEDS ORDERED: KETOROLAC 30 MG/ML 1 ML VIAL IVP PRN (13:03)
[2019-04-20] MEDS ORDERED: NALOXONE 0.4 MG/ML 1 ML VIAL IV PRN (13:03)
[2019-04-20] MEDS ORDERED: IBUPROFEN 400 MG TAB PO PRN (13:03)
[2019-04-20] MEDS: SODIUM CHLORIDE 0.9% 1,000 ML IV SCH (13:31)
[2019-04-20] MEDS ORDERED: HYDROmorphone 0.5 MG/0.5 ML SYRINGE IM PRN (15:38)
[2019-04-20 20:06] LABS: Glucose,Whole Blood 268 mg/dL (75-99)
[2019-04-20] MEDS: cloNIDine HCL 0.1 MG TAB PO SCH (20:47)
[2019-04-20] MEDS: METOPROLOL TARTRATE 50 MG TAB PO SCH (20:48)
[2019-04-20] MEDS: HEPARIN SODIUM,PORCINE 5,000 UNIT/ML 1 ML VIAL SQ SCH (20:48)
[2019-04-20] MEDS: INSULIN ASPART (NovoLOG) 100 UNIT/ML VIAL SQ SCH (20:48)
[2019-04-20] MEDS: GABAPENTIN 300 MG CAP PO SCH (20:48)
[2019-04-20] MEDS ORDERED: ATORVASTATIN 80 MG TAB PO SCH (21:00)
[2019-04-21] MEDS: HYDROmorphone 0.5 MG/0.5 ML SYRINGE IVP PRN ×2 (00:25→19:22)
[2019-04-21 06:59] LABS: Glucose,Whole Blood 163 mg/dL (75-99)
[2019-04-21] MEDS ORDERED: PANTOPRAZOLE 40 MG TABLET PO SCH (07:30)
[2019-04-21] MEDS: INSULIN ASPART (NovoLOG) 100 UNIT/ML VIAL SQ SCH ×7 (07:39→20:41)
[2019-04-21] MEDS: HEPARIN SODIUM,PORCINE 5,000 UNIT/ML 1 ML VIAL SQ SCH ×2 (07:42→20:41)
[2019-04-21] MEDS: cloNIDine HCL 0.1 MG TAB PO SCH ×2 (07:43→20:41)
[2019-04-21] MEDS: METOPROLOL TARTRATE 50 MG TAB PO SCH ×2 (07:43→20:41)
[2019-04-21] MEDS: GABAPENTIN 300 MG CAP PO SCH ×2 (07:43→20:41)
[2019-04-21] MEDS: amLODIPine 10 MG TAB PO SCH (07:43)
[2019-04-21] MEDS: traMADol 50 MG TAB PO PRN ×2 (07:51→17:40)
--- NOTE | 2019-04-21 08:54 | HP ---
HISTORY AND PHYSICAL DATE OF SERVICE: 04/20/2019 CHIEF COMPLAINT: Abdominal pain, diarrhea. HISTORY OF PRESENT ILLNESS: This is a 69-year-old gentleman with a past medical history of multiple medical problems including history of COPD, history of GERD, diabetes, hypertension, DJD, history of CAD being followed by Dr. Elena Rodriguez in the outpatient setting is complaining of diffuse abdominal pain, diarrhea for the last 2 weeks. The patient had large volume diarrhea on and off at least 10 times per day because despite taking Imodium. Patient is not getting any relief and because of increasing difficulties, the patient came to [facility], admitted for further evaluation and treatment. The patient had multiple surgeries. There is no history of vomiting. The patient has some cramping of the abdomen also. After admission, patient had multiple abnormalities including creatinine which is worsened to 3.3 indicating acute on chronic kidney disease and AST, ALT is also elevated. The CAT scan of the abdomen and pelvis also showed multiple findings including hepatosplenomegaly and as well as gross biliary dilatation up to 3 cm, gross dilatation and some mucosal thickening throughout the colon, also. The patient is being closely monitored. Colitis was suspected in the CAT scan. There is no history of any fever, rigor or chills. No history of headache, loss of consciousness, seizures. PAST MEDICAL HISTORY: History of COPD, CVA, TIA, diabetes, GERD, hypertension, history of DJD, history of cholecystectomy. MEDICATIONS: Prior to admission include: 1. Ultram 50 mg t.i.d. p.r.n. 2. Catapres 0.1 p.o. b.i.d. 3. Amlodipine 10 mg p.o. daily. 4. Omeprazole 40 mg p.o. daily. 5. Lopressor 50 mg p.o. b.i.d. 6. NovoLog 60 units a.c. t.i.d. 7. Gabapentin 300 mg p.o. b.i.d. 8. Lasix 40 mg p.o. daily. 9. Lasix 20 mg q.h.s. 10.Celexa 40 mg p.o. daily. 11.Lipitor 40 80 mg q.h.s. 12.Tylenol Arthritis 650 q.6 p.r.n. ALLERGIES: NEOMYCIN. FAMILY HISTORY: History of cancer in the family. SOCIAL HISTORY: No history of current smoking, previous history of smoking. No history of alcohol intake. REVIEW OF SYSTEMS: ENT: No diminished vision. Diminished hearing. CARDIOVASCULAR SYSTEM: S1, S2. RESPIRATION: No cough. GI: As mentioned earlier. : No dysuria, as mentioned earlier. ALLERGY/IMMUNOLOGY: No asthma or hay fever. MUSCULOSKELETAL As mentioned. HEMATOLOGY/ONCOLOGY: No history anemia. ENDOCRINE: Diabetes mellitus. CONSTITUTIONAL: As mentioned earlier. DERMATOLOGY: Negative. RHEUMATOLOGY: Negative. PSYCHIATRY: As mentioned earlier. PHYSICAL EXAMINATION: Alert and oriented x3, pulse 51, blood pressure 115/50, respiration 17, temperature 97.8, pulse ox 94% on room air. HEENT: Conjunctivae normal. Oral mucosa moist. NECK: No jugular venous distention. No lymph node enlargement. CARDIOVASCULAR SYSTEM: S1, S2, muffled. RESPIRATION; Breath sounds diminished at the bases, a few scattered rhonchi, no crackles. ABDOMEN: Soft, obese, mild diffuse discomfort on palpation. No guarding. No rigidity. No mass palpable. LEGS: No edema, no swelling. NERVOUS SYSTEM: As mentioned earlier. Moves all 4 limbs. No focal motor or sensory deficits. LYMPHATICS: No lymph node enlargement in the neck or axillae. SKIN: No ulcers, rash, bleeding. JOINTS: No active joint arthropathy. LABS: WBC is 5.8, hemoglobin is 9.6, platelets 123. Sodium 130, potassium 4.5,. creatinine 3.30. AST is 192, ALT is 157. ASSESSMENT: 1. Abdominal pain, diarrhea for evaluation, possibly infectious. 2. Hepatosplenomegaly and gross biliary dilatation with CBD dilatation to the lateral head of the pancreas in the CAT scan. 3. Gross diverticulitis. 4. Mucosal thickening with possible acute colitis. 5. Anemia, normocytic anemia of chronic disease. 6. Thrombocytopenia. 7. Chronic kidney disease, stage III, possibly baseline. 8. Depression with suicidal ideations possibly. 9. Increased AST, ALT, possibly hepatitis. 10.Rule out chronic liver disease and cirrhosis of liver. 11.Increased lipase with normal amylase. 12.History of chronic obstructive pulmonary disease. 13.History of cerebrovascular accident, transient ischemic attack. 14.Diabetes mellitus type 2. 15.Gastroesophageal reflux disease. 16.Hypertension. 17.History of degenerative joint disease. 18.Sleep apnea. 19.History of cholecystectomy. 20.History of coronary artery disease, stent. 21.History of degenerative joint disease. 22.History of anxiety, depression. 23.Remote history of nicotine dependence. 24.Obesity with body mass index of 38. 25.FULL CODE. RECOMMENDATION: In this 69-year-old gentleman who presented with multiple complex medical issues, will monitor the patient closely. The exact etiology of diarrhea not known, could be infectious. Will monitor the patient closely. Will check stool testing also. Otherwise, Gastroenterology has been consulted. Will also obtain psychiatric consultation and one-to-one watch. Keep one-to-one suicidal precautions and we will follow the patient closely with closely and prognosis guarded. The patient also might have possibly chronic liver disease also at this time. We will gently hydrate the patient and continue to monitor. The prognosis guarded and a copy of this will be forwarded to Dr. Elena Rodriguez who is the primary physician. Dr. Dane Chowdary will follow tomorrow. MMRUBINAL / VALEN: [id number] /
[2019-04-21] MEDS ORDERED: PANTOPRAZOLE 40 MG/10 ML VIAL IV SCH (09:00)
[2019-04-21] MEDS ORDERED: CITALOPRAM HYDROBROMIDE 20 MG TAB PO SCH (09:00)
[2019-04-21] MEDS: ONDANSETRON 4 MG/2 ML VIAL IVP PRN (10:45)
[2019-04-21 10:54] LABS: Glucose,Whole Blood 135 mg/dL (75-99)
[2019-04-21 11:38] LABS: Glucose,Whole Blood 126 mg/dL (75-99)
[2019-04-21] MEDS: SODIUM CHLORIDE 0.9% 1,000 ML IV SCH (12:25)
--- NOTE | 2019-04-21 14:26 | P.CN ---
Psychiatric Consult - . Consult date: 04/21/19 Consult:: 04/21/19 14:14 IDENTIFYING DATA: This patient is a 69-year-old male currently lives with his in a house has 1 kid and collects Social Security HISTORY OF PRESENT ILLNESS: The patient presented to the emergency department with abdominal pain, diarrhea for 2 weeks and vague complaint of suicidal ideations in the past. Patient had a blood alcohol level which was negative and a UDS which was negative. Patient had significant elevation in his liver function tests and also creatinine. Patient was found to have bile duct dilation along with colitis and was admitted to the medical floors. Psychiatry was consulted for suicidal ideation. Manager Of Tax spoke with nurse outside of patient's room who states that she has not heard patient endorse depression or suicidal ideations and has been cooperative in dealing with pain. spoke with senior grant writer outside of the room as well who states that patient has never endorse suicidal ideations or has any suicide attempts in the past and has been "struggling with pain and his medical problems a lot". Manager Of Tax was seen laying down at the bedside and appeared to be on one side and was directable and agreeable to speak to senior grant writer. 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 Patient states that his work has not been stressful for him and he enjoys it. He states that he "lost a son" in the 1980s and states that his other son has distanced himself from him and his and they have a strained relationship. Patient also states that his brother recently in February 2019 and he has adjusted to it well however he states that he did have a close relationship. Patient claims that he is in significant amount of pain from chronic neuropathy in his hands and feet along with fracture in her vertebrae and abdominal pain. Patient states that he has been mildly depressed for quite some time and when asked about suicide or suicidal ideations patient states that "I was a few years ago now is mostly because of my pain". He denies any active suicidal ideations at this time. He states that his energy is poor and he has fair sleep at night and fair appetite. At this time patient denies any suicidal or homical ideations, intent or plan. Patient denies any auditory, visual hallucinations and denies any paranoia or delusions. Patient states that he quit smoking cigarettes several years ago and denies any other recreational drugs or alcohol use. PAST PSYCHIATRIC HISTORY: Patient states that he has a history of depression and has been treated on Celexa 40 mg daily by his primary care provider. He states that these never been admitted to a psychiatric hospital and denies any history of suicide attempts. He states that he is no history of outpatient psychiatric follow-up.. PAST MEDICAL HISTORY: COPD, diabetes mellitus, CVA, hypertension, CAD, OA. ALLERGIES: as per EMR. CHEMICAL DEPENDENCY HISTORY: as per HPI. FAMILY PSYCHIATRIC/SUBSTANCE USE HISTORY: denies SOCIAL HISTORY: He states that he was born and raised in [facility] and moved to [place]. 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 He states it is 1 year of college education. He is currently and has one son who has a strained relationship with. MENTAL STATUS EXAM: General Appearance: Patient appears to be stated age is overweight, alert, attempts to cooperate. Marginal hygiene and grooming. Appears to be in mild distress secondary to pain Behavior: Patient is calmly lying in bed without any agitated behavior. Speech: Patient's speech is fluent and nonpressured. Mood/Affect: Patient reports their mood is "depressed", affect is congruent and constricted Suicidality/Homicidality: Patient denies having any suicidal or homicidal ideation intent or plan. Perceptions: Patient denies any visual hallucinations and denies any auditory hallucinations Though content/process: There is no evidence of any delusional thought content and thought process is linear and goal-directed. Memory and concentration: AOX3, grossly intact for the purposes of this session. Can spell "WORLD" backwards Judgment and insight: Limited, guarded prognosis IMPRESSIONS: Major depressive disorder, mild. Rule out secondary to general medical condition/pain PLAN: -At this time patient does NOT meet criteria for inpatient psychiatric admission. -Encourage continuing to treat underlying medical condition and also patient's pain which showed in turn help patient's depression. -Would recommend the following medication changes/additions: Will discontinue Celexa at this time is patient does not want to take this medication any longer and is agreeable to start duloxetine 30 mg daily for mood/neuropathic pain. This dose can be increased to 60 mg after 4-5 days if patient is tolerating it well. Patient is agreeable to this plan -SW to provide patient with outpatient psychiatric/mental health follow-up resources and emergency crisis number. -Will continue to follow along as needed. -Once patient is medically cleared for discharge then will re-see patient for final recommendations on antidepressant.
[2019-04-21 17:05] LABS: Glucose,Whole Blood 131 mg/dL (75-99)
--- NOTE | 2019-04-21 18:42 | CONS ---
CONSULTATION DATE OF DICTATION: April 21, 2019. REQUESTING PHYSICIAN: Dr. Dane Chowdary. REASON FOR CONSULTATION: Abdominal pain and diarrhea and elevated LFTs. HISTORY OF PRESENTING ILLNESS: The patient is a 69-year-old pleasant white male with history of diabetes mellitus, hypertension, hyperlipidemia, coronary artery disease, was admitted to hospital complaining of diffuse abdominal pain as well as diarrhea for the last 2 weeks duration. Patient states the pain is mostly in the epigastric area, right upper quadrant area and in the lower abdominal area on and off for the last several weeks, but has been progressively getting worse for the last 2 weeks. He started noticing severe diarrhea around the same time with bowel movements anywhere from 10 to 12 a day which are loose to watery in consistency, but no blood or mucus in the stool. He denies any fever, chills, or night sweats. He took Imodium at home with no help. As the symptoms continued to progressively get worse, he came into the emergency room and subsequently admitted to the hospital for further evaluation. He did have a CT of the abdomen and pelvis done in the emergency room that showed evidence of hepatosplenomegaly as well as biliary ductal dilation with the common bile duct measuring about 3 cm in size and also there was some mucosal thickening noted in the colon consistent with acute colitis. He was also noted to have elevated serum transaminases with ALT and AST in the range of 159 and 117 respectively. Patient has no prior history of chronic liver disease. He has prior history of gallbladder surgery about 20 years ago for symptomatic gallstones. He denies any antibiotic use. He denies any new medications that were started recently. He denies any recent weight loss. No recent travel history. His last colonoscopy was done by Dr. High in October of 2015 that showed evidence of a small transverse colon polyp. He also had an upper endoscopy done at the same time that was unremarkable that showed mild gastritis. PAST MEDICAL HISTORY: Significant for hypertension, hyperlipidemia, diabetes mellitus, gastroesophageal reflux disease, degenerative joint disease, COPD, history of CVA/TIA in the past. MEDICATIONS: At home include Ultram, Catapres, amlodipine, omeprazole, Lopressor, NovoLog, gabapentin, Lasix, Celexa, Lipitor and Tylenol. ALLERGIES: NEOMYCIN. PAST SURGICAL HISTORY: Past surgical history of cholecystectomy. FAMILY HISTORY: Unremarkable. SOCIAL HISTORY: No history of smoking or alcohol use. REVIEW OF SYSTEMS: CARDIOPULMONARY: No chest pain or shortness of breath. no dysuria or hematuria. MUSCULOSKELETAL unremarkable. SKIN unremarkable. ENDOCRINE unremarkable. PSYCHIATRIC unremarkable. NEUROLOGY unremarkable. ENT/vision unremarkable. CONSTITUTIONAL: No recent weight loss. No fever, chills, night sweats. PHYSICAL EXAMINATION: He appears comfortable. No apparent distress. VITAL SIGNS: Stable. Blood pressure 145/61, pulse rate 52, and temperature 97. HEENT examination unremarkable. Conjunctivae pink. Sclerae anicteric. Oral cavity no lesions. NECK: No JVD or lymph node enlargement. CHEST: Clear to auscultation. HEART: Regular rate and rhythm. ABDOMEN: Soft. Bowel sounds are positive. There was mild diffuse tenderness noted throughout the entire abdomen, but more predominant in the epigastric and right upper quadrant area. EXTREMITIES: No pedal edema. SKIN: No rashes. NEUROLOGIC: Alert and oriented x3. No focal deficits. LABS: At the time of admission to the hospital: WBC was 5.2, hemoglobin 9.6, platelets are 123. INR is 1.2. AST is 192, ALT is 157, alkaline phosphatase is 161, T-bilirubin is 0.6, lipase is slightly elevated at 390, BUN is 40, creatinine 3.30. LFTs have been within normal limits a month ago. CT of the abdomen done yesterday showed hepatosplenomegaly. There was gross central biliary ductal dilation with the common bile duct measuring 3 cm in the head of the pancreas, mucosal thickening throughout the colon consistent with colitis. IMPRESSION: 1. Diffuse abdominal pain and diarrhea for the last [address] scan showed diffuse thickening of the colon consistent with colitis. Most likely dealing with infectious colitis. Last colonoscopy in [address] High was unremarkable other than a small polyp. 2. Mild elevation of serum transaminases, which have been normal about a month ago. He does complain of epigastric and right upper quadrant abdominal pain status post gallbladder surgery 23 years ago for symptomatic gallstones. CT scan did show evidence of hepatosplenomegaly as well as biliary ductal dilation with the CBD measuring 3 cm in diameter. Rule out choledocholithiasis. 3. Chronic kidney disease stage 3. 4. Long standing history of diabetes mellitus diagnosed 20 years ago. 5. Mild thrombocytopenia and anemia and slightly elevated INR in the setting of hepatosplenomegaly, most likely consistent with underlying chronic liver disease. 6. History of cerebrovascular accident, transient ischemic attack in the past. RECOMMENDATIONS: 1. Obtain stool studies. 2. Clear liquid diet. 3. Obtain MRCP to evaluate the biliary system. 4. Repeat LFTs in the morning. 5. Hepatitis serologies for A, B and C. 6. We will follow with you closely. Thank you for this consultation. ALLYN / JAYY: [id number] /
[2019-04-21 20:19] LABS: Glucose,Whole Blood 152 mg/dL (75-99)
[2019-04-21] MEDS: ATORVASTATIN 40 MG TAB PO SCH (20:41)
[2019-04-22] MEDS: HYDROmorphone 0.5 MG/0.5 ML SYRINGE IVP PRN ×4 (04:07→20:45)
[2019-04-22 06:55] LABS: Glucose,Whole Blood 195 mg/dL (75-99)
[2019-04-22] MEDS: INSULIN ASPART (NovoLOG) 100 UNIT/ML VIAL SQ SCH ×7 (07:15→20:34)
[2019-04-22 07:16] LABS: Albumin 4.1 g/dL (3.5-5.0); Calcium 8.9 mg/dL (8.4-10.2); Potassium 4.7 mmol/L (3.5-5.1); Total Bilirubin 0.8 mg/dL (0.2-1.3); Total Protein 6.9 g/dL (6.3-8.2)
[2019-04-22] MEDS: ONDANSETRON 4 MG/2 ML VIAL IVP PRN (07:16)
--- NOTE | 2019-04-22 08:42 | P.PN ---
Subjective Progress Note Date: 04/21/19 Principal diagnosis: abd pain Dane Shah is a 69 yo M with hx COPD, TIA, GERD who presented for worsening epigastric and RUQ pain as well as diarrhea x2 weeks. He was found to have elevated LFTs and CT showed CBD dilation and mucosal thickening of the colon. He reports a history of cholecystectomy had normal EGD and colonoscopy in 2016. He did mention suicidal ideation in the ED that he attributes to his severe pain. 04/21/2019: He continues to complain of abdominal pain today, has been on clear liquid diet and no nausea or vomiting. Pt was evaluated by GI and MRCP ordered as well as stool studies. Today he denies SI and attributes saying this to his abdominal pain. Objective - Vital Signs Vital signs: Vital Signs Temp 97.5 F L 04/22/19 02:06 Pulse 63 04/22/19 02:06 Resp 17 04/22/19 02:06 BP 169/82 04/22/19 02:06 Pulse Ox 90 L 04/22/19 02:06 Intake & Output 04/21/19 04/22/19 04/22/19 18:59 06:59 18:59 Other: Voiding Method Toilet # Voids 1 1 # Bowel Movements 1 - Exam Gen: well developed, well nourished obese white male HEENT: NC/AT, mmm CV: RRR, no murmur Lungs: normal effort, clear throughout Abd: soft, generalized tenderness. BS + Neuro: alert and oriented x3, normal mood and affect - Labs CBC & Chem 7: 04/20/19 09:00 04/22/19 06:21 Labs: Abnormal Lab Results - Last 24 Hours (Table) 04/21/19 04/21/19 04/21/19 Range/Units 10:52 11:38 17:03 Sodium (137-145) mmol/L Carbon Dioxide (22-30) mmol/L BUN (9-20) mg/dL Creatinine (0.66-1.25) mg/dL Glucose (74-99) mg/dL POC Glucose (mg/dL) 135 H 126 H 131 H (75-99) mg/dL AST (17-59) U/L ALT (4-49) U/L Alkaline Phosphatase (38-126) U/L 04/21/19 04/22/19 04/22/19 Range/Units 20:17 06:21 06:52 Sodium 136 L (137-145) mmol/L Carbon Dioxide 19 L (22-30) mmol/L BUN 30 H (9-20) mg/dL Creatinine 2.75 H (0.66-1.25) mg/dL Glucose 172 H (74-99) mg/dL POC Glucose (mg/dL) 152 H 195 H (75-99) mg/dL AST 94 H (17-59) U/L ALT 177 H (4-49) U/L Alkaline Phosphatase 227 H (38-126) U/L Assessment and Plan (1) Colitis Current Visit: Yes Status: Acute Code(s): K52.9 - NONINFECTIVE GASTROENTERITIS AND COLITIS, UNSPECIFIED SNOMED Code(s): 30020860 (2) Common bile duct dilation Current Visit: Yes Status: Acute Code(s): K83.8 - OTHER SPECIFIED DISEASES OF BILIARY TRACT SNOMED Code(s): 816481906 (3) Transaminitis Current Visit: Yes Status: Acute Code(s): R74.0 - NONSPEC ELEV OF LEVELS OF TRANSAMNS & LACTIC ACID DEHYDRGNSE SNOMED Code(s): 191652553 (4) Abdominal pain Current Visit: No Status: Acute Code(s): R10.9 - UNSPECIFIED ABDOMINAL PAIN SNOMED Code(s): 78455923 Plan: 1. Abd pain. Diarrhea. Elevated LFTs. GI consulted. Suspect acute colitis. Obtain stool studies, continue supportive care. MRCP ordered to evaluate CBD dilation 2. HTN. Continue norvasc 3. T2DM. Accucheck, sliding scale 4. Depression. Psych consulted, celexa switched to cymbalta 5. Hx TIA. Continue lipitor
[2019-04-22] MEDS: PANTOPRAZOLE 40 MG TABLET PO SCH (09:21)
[2019-04-22] MEDS: DULoxetine HCL 30 MG CAPSULE.DR PO SCH (09:21)
[2019-04-22] MEDS: GABAPENTIN 300 MG CAP PO SCH ×2 (09:21→20:44)
[2019-04-22] MEDS: cloNIDine HCL 0.1 MG TAB PO SCH ×2 (09:21→20:44)
[2019-04-22] MEDS: amLODIPine 10 MG TAB PO SCH (09:21)
[2019-04-22] MEDS: METOPROLOL TARTRATE 50 MG TAB PO SCH ×2 (09:21→20:44)
[2019-04-22] MEDS: HEPARIN SODIUM,PORCINE 5,000 UNIT/ML 1 ML VIAL SQ SCH ×2 (09:22→20:44)
--- NOTE | 2019-04-22 10:30 | ECHOF ---
Referral Reason:Systolic murmur, new onset MEASUREMENTS -------- HEIGHT: 180.3 cm WEIGHT: 120.2 kg BP: 132/72 IVSd: 1.4 cm (0.6 - 1.1) LVIDd: 4.4 cm (3.9 - 5.3) LVPWd: 1.3 cm (0.6 - 1.1) IVSs: 1.6 cm LVIDs: 2.9 cm LVPWs: 2.3 cm LAESV Index (A-L): 23.58 ml/m Ao Diam: 3.1 cm (2.0 - 3.7) AV Cusp: 1.0 cm (1.5 - 2.6) LA Diam: 3.3 cm (2.7 - 3.8) MV E Alex: 0.97 m/s MV DecT: 221 ms MV A Alex: 0.57 m/s MV E/A Ratio: 1.69 AV maxP.37 mmHg AV meanP.08 mmHg RAP: 5.00 mmHg RVSP: 30.43 mmHg FINDINGS -------- Sinus rhythm. This was a technically difficult study with suboptimal views. The left ventricular size is normal. There is moderate concentric left ventricular hypertrophy. O verall left ventricular systolic function is normal with, an EF between 55 - 60 %. The diastolic fi lling pattern is normal for the age of the patient 11.89. The right ventricle is normal in size. The left atrial size is normal. Normal LA size by volume 22+/-6 ml/m2. The right atrial size is normal. Aortic valve is trileaflet and is moderately thickened. There is mild aortic stenosis present. Pe ak/mean gradient across the Aortic Valve is 25.37mmHg / 17.08mmHg. The mitral valve is normal. Mild mitral regurgitation is present. The tricuspid valve appears structurally normal. Mild tricuspid regurgitation present. Right vent ricular systolic pressure is normal at < 35 mmHg. There is no pulmonic regurgitation present. The aortic root size is normal. Normal inferior vena cava with normal inspiratory collapse consistent with estimated right atrial pre ssure of 5 mmHg. There is no pericardial effusion. CONCLUSIONS -------- 1. Sinus rhythm. 2. This was a technically difficult study with suboptimal views. 3. The left ventricular size is normal. 4. There is moderate concentric left ventricular hypertrophy. 5. Overall left ventricular systolic function is normal with, an EF between 55 - 60 %. 6. The diastolic filling pattern is normal for the age of the patient 11.89 7. The right ventricle is normal in size. 8. The left atrial size is normal. 9. Normal LA size by volume 22+/-6 ml/m2. 10. The right atrial size is normal. 11. Aortic valve is trileaflet and is moderately thickened. 12. There is mild aortic stenosis present. 13. Peak/mean gradient across the Aortic Valve is 25.37mmHg / 17.08mmHg. 14. The mitral valve is normal. 15. Mild mitral regurgitation is present. 16. The tricuspid valve appears structurally normal. 17. Mild tricuspid regurgitation present. 18. Right ventricular systolic pressure is normal at < 35 mmHg. 19. There is no pulmonic regurgitation present. 20. The aortic root size is normal. 21. Normal inferior vena cava with normal inspiratory collapse consistent with estimated right atrial pressure of 5 mmHg. 22. There is no pericardial effusion. BUTTON RECLAIMER: Nataliia Booth RDCS
[2019-04-22 11:36] LABS: Glucose,Whole Blood 153 mg/dL (75-99)
[2019-04-22] MEDS ORDERED: HEPARIN SODIUM,PORCINE 5,000 UNIT/ML 1 ML VIAL SQ STA (12:10)
--- NOTE | 2019-04-22 12:20 | XR ---
EXAMINATION TYPE: XR chest 1V portable DATE OF EXAM: 04/22/2019 Comparison: 10/27/2018 Clinical History: 69-year-old male hypoxia Findings: Similar asymmetric elevation left hemidiaphragm. Heart border likely mildly enlarged. Perihilar and i nterstitial opacities. No sizable effusion on the frontal view. Impression: 1. Perihilar and interstitial opacities. Correlate for CHF with pulmonary vascular congestion. 2. Continued asymmetric elevation left hemidiaphragm. Correlate for the possibility of hemidiaphragma tic paralysis.
[2019-04-22] MEDS: SODIUM CHLORIDE 0.9% 1,000 ML IV SCH (13:15)
--- NOTE | 2019-04-22 15:20 | P.PN ---
Subjective Progress Note Date: 04/22/19 abd pain Dane Shah is a 69 yo M with hx COPD, TIA, GERD who presented for worsening epigastric and RUQ pain as well as diarrhea x2 weeks. He was found to have elevated LFTs and CT showed CBD dilation and mucosal thickening of the colon. He reports a history of cholecystectomy had normal EGD and colonoscopy in 2016. He did mention suicidal ideation in the ED that he attributes to his severe pain. 04/21/2019: He continues to complain of abdominal pain today, has been on clear liquid diet and no nausea or vomiting. Pt was evaluated by GI and MRCP ordered as well as stool studies. Today he denies SI and attributes saying this to his abdominal pain. 04/22/2019 evaluated by psychiatry with recommendations noted and appreciated. Significant other brought in his BiPAP machine without his oxygen component, therefore did not use his BiPAP during the night. CO2 19. Hospital BiPAP machine being currently arranged. Evaluated by GI, Scheduled for MRCP today. Stool studies in progress. T bili 0.8, AST improving, 94, ALT and alk phos worsening , respectively 177 and 227. Lipase wnl. Creatinine 2.75. Reports diffuse unchanged abdominal pain, with pain management not lasting. Denies chest pain, palpitations or increasing shortness of breath. Objective - Vital Signs Vital signs: Vital Signs Temp 98.4 F 04/22/19 13:05 Pulse 63 04/22/19 13:05 Resp 17 04/22/19 13:05 BP 169/89 04/22/19 13:05 Pulse Ox 90 L 04/22/19 13:05 Intake & Output 04/21/19 04/22/19 04/22/19 18:59 06:59 18:59 Other: Voiding Method Toilet # Voids 1 1 1 # Bowel Movements 1 - Exam Gen: well developed, well nourished obese white male, sitting up at side of bed HEENT: NC/AT, mmm CV: RRR, no murmur Lungs: normal effort, clear throughout Abd: soft, generalized tenderness. BS + Neuro: alert and oriented x3, normal mood and affect - Labs CBC & Chem 7: 04/20/19 09:00 04/22/19 06:21 Labs: Abnormal Lab Results - Last 24 Hours (Table) 04/21/19 04/21/19 04/22/19 Range/Units 17:03 20:17 06:21 Sodium 136 L (137-145) mmol/L Carbon Dioxide 19 L (22-30) mmol/L BUN 30 H (9-20) mg/dL Creatinine 2.75 H (0.66-1.25) mg/dL Glucose 172 H (74-99) mg/dL POC Glucose (mg/dL) 131 H 152 H (75-99) mg/dL AST 94 H (17-59) U/L ALT 177 H (4-49) U/L Alkaline Phosphatase 227 H (38-126) U/L 04/22/19 04/22/19 Range/Units 06:52 11:33 Sodium (137-145) mmol/L Carbon Dioxide (22-30) mmol/L BUN (9-20) mg/dL Creatinine (0.66-1.25) mg/dL Glucose (74-99) mg/dL POC Glucose (mg/dL) 195 H 153 H (75-99) mg/dL AST (17-59) U/L ALT (4-49) U/L Alkaline Phosphatase (38-126) U/L Assessment and Plan Assessment: (1) Colitis, acute Current Visit: Yes Status: Acute Code(s): K52.9 - NONINFECTIVE GASTROENTERITIS AND COLITIS, UNSPECIFIED SNOMED Code(s): 15940543 (2) Common bile duct dilation, MRCP pending Current Visit: Yes Status: Acute Code(s): K83.8 - OTHER SPECIFIED DISEASES OF BILIARY TRACT SNOMED Code(s): 604292305 (3) Transaminitis Current Visit: Yes Status: Acute Code(s): R74.0 - NONSPEC ELEV OF LEVELS OF TRANSAMNS & LACTIC ACID DEHYDRGNSE SNOMED Code(s): 204580097 (4) Abdominal pain Current Visit: No Status: Acute Code(s): R10.9 - UNSPECIFIED ABDOMINAL PAIN SNOMED Code(s): 19818968 (5) hypertension Plan: Continue on current medication regime ,monitoring and symptomatic treatment. Hospital BiPAP machine to be arranged and at bedside now. Chest x-ray ordered. Resume home dose Lasix 20 mg daily. Close monitoring of renal function, LFTs, electrolytes with repeat labs ordered for a.m. MRCP pending. Stool studies pending. Celexa converted to Cymbalta as per psychiatry recommendations. The impression and plan of care has been dictated as directed. : I performed a history and examination of this patient, discussed the same with the dictator. I agree with the dictator's note ,documented as a scribe. Any additional findings or plans will be noted.
[2019-04-22] MEDS: FUROSEMIDE 20 MG TAB PO SCH (15:52)
[2019-04-22 16:31] LABS: Glucose,Whole Blood 146 mg/dL (75-99)
--- NOTE | 2019-04-22 18:00 | PN ---
PROGRESS NOTE DATE OF DICTATION: 04/22/2019 The patient is a 69-year-old pleasant white male admitted to the hospital because of severe diarrhea for the last 2 weeks' duration. He has also been complaining of right upper quadrant abdominal pain and epigastric pain for the same duration. He was noted to have mild elevations in transaminases. He did have a CT of the abdomen done that showed dilated common bile duct, and hence he was scheduled for an MRCP to be done today. However, it was not done because of the patient's weight. He has prior history of cholecystectomy many years ago for symptomatic gallstones. Today he is feeling better. Diarrhea is improving. He had only 3 soft bowel movements; however, he continues to have persistent right upper quadrant abdominal pain. He denies any nausea or vomiting. No fever, chills, night sweats. PHYSICAL EXAMINATION: He appears comfortable. No apparent distress. VITAL SIGNS: Stable. Blood pressure is 169/89, pulse rate , temperature 98.4. HEENT examination unremarkable. Conjunctivae pink. Sclerae anicteric. Oral cavity no lesions. NECK: No JVD or lymph node enlargement. CHEST: Clear to auscultation. HEART: Regular rate and rhythm. ABDOMEN: Soft. It was slightly obese. There was tenderness in the right upper quadrant area as well as in the epigastric area but not as before. Rest of the abdomen was benign. EXTREMITIES: No pedal edema. SKIN: No rashes. NEUROLOGIC: Alert and oriented x3. No focal deficits. LABS: Stool studies so far show cryptosporidium negative, giardia antigen negative. ALT and AST have improved. AST is 94. ALT is 177, alkaline phosphatase 227. T-bilirubin is 0.8. Lipase is normal at 269. BUN 30, creatinine 2.75. IMPRESSION: 1. Acute diarrhea for the last 2 weeks' duration. Stool studies so far negative. Rest of the cultures are pending. Diarrhea is gradually improving. 2. Right upper quadrant abdominal pain, elevated liver function tests. CT of the abdomen showed dilated intra- and extrahepatic dilated common bile duct. MRCP was scheduled for today but could not be done because of the patient's body habitus. Cannot rule out possibility of CBD stone. 3. Elevated BUN and creatinine/questionable chronic kidney disease. RECOMMENDATIONS: 1. Await rest of the stool cultures. 2. Advance diet as tolerated. 3. Repeat LFTs in the morning. If they continue to improve, we will consider doing an MRCP on an outpatient basis to investigate the right upper quadrant pain. We will follow with you closely. Thank you for this consultation. ALLYN / JAYY: [id number] /
[2019-04-22] MEDS: traMADol 50 MG TAB PO PRN (19:45)
[2019-04-22 20:29] LABS: Glucose,Whole Blood 122 mg/dL (75-99)
[2019-04-22] MEDS: ATORVASTATIN 40 MG TAB PO SCH (20:45)
[2019-04-23 06:47] LABS: Glucose,Whole Blood 153 mg/dL (75-99)
[2019-04-23 07:15] VITALS: BP 188/86; RESP 14; TEMP 98.7
[2019-04-23] MEDS: INSULIN ASPART (NovoLOG) 100 UNIT/ML VIAL SQ SCH ×2 (07:35→07:36)
[2019-04-23 07:43] LABS: HCT 33.9 % (39.0-53.0); MCH 27.3 pg (25.0-35.0); MCHC 32.3 g/dL (31.0-37.0); MCV 84.5 fL (80.0-100.0); Mean Platelet Volume 8.7; Platelet Count 120 k/uL (150-450); RBC 4.01 m/uL (4.30-5.90); RDW 14.1 % (11.5-15.5); WBC 7.4 k/uL (3.8-10.6)
[2019-04-23 07:56] LABS: Albumin 3.7 g/dL (3.5-5.0); Calcium 8.8 mg/dL (8.4-10.2); Potassium 4.4 mmol/L (3.5-5.1); Total Bilirubin 1.2 mg/dL (0.2-1.3); Total Protein 6.4 g/dL (6.3-8.2)
[2019-04-23] MEDS: FUROSEMIDE 20 MG TAB PO SCH (08:27)
[2019-04-23] MEDS: METOPROLOL TARTRATE 50 MG TAB PO SCH (08:27)
[2019-04-23] MEDS: cloNIDine HCL 0.1 MG TAB PO SCH (08:27)
[2019-04-23] MEDS: amLODIPine 10 MG TAB PO SCH (08:28)
[2019-04-23] MEDS: GABAPENTIN 300 MG CAP PO SCH (08:28)
[2019-04-23] MEDS: traMADol 50 MG TAB PO PRN (08:28)
[2019-04-23] MEDS: PANTOPRAZOLE 40 MG TABLET PO SCH (08:28)
[2019-04-23] MEDS: HEPARIN SODIUM,PORCINE 5,000 UNIT/ML 1 ML VIAL SQ SCH (08:28)
[2019-04-23] MEDS: DULoxetine HCL 30 MG CAPSULE.DR PO SCH (08:28)
--- NOTE | 2019-04-23 10:38 | P.DS ---
Providers Date of admission: 04/22/19 08:14 Expected date of discharge: 04/23/19 Attending physician: Dane Chowdary MD Consults: 04/20/19 13:03 Consult Physician Stat Consulting Provider: Sherrill Mejía Consult Reason/Comments: Biliary duct dilation Do you want consulting provider notified?: Yes 04/20/19 14:29 Consult Physician Stat Consulting Provider: Darin Pena Consult Reason/Comments: suicidal ideation Do you want consulting provider notified?: Yes Primary care physician: Eelna Rodriguez Hospital Course: Final Diagnoses: (1) Colitis, acute Current Visit: Yes Status: Acute Code(s): K52.9 - NONINFECTIVE GASTROENTERITIS AND COLITIS, UNSPECIFIED SNOMED Code(s): 08296070 (2) Common bile duct dilation, MRCP pending Current Visit: Yes Status: Acute Code(s): K83.8 - OTHER SPECIFIED DISEASES OF BILIARY TRACT SNOMED Code(s): 847312621 (3) Transaminitis Current Visit: Yes Status: Acute Code(s): R74.0 - NONSPEC ELEV OF LEVELS OF TRANSAMNS & LACTIC ACID DEHYDRGNSE SNOMED Code(s): 283231357 (4) Abdominal pain Current Visit: No Status: Acute Code(s): R10.9 - UNSPECIFIED ABDOMINAL PAIN SNOMED Code(s): 60574218 (5) hypertension (6) mild aortic stenosis (7) EF 55-60% (8) Depression Hospital course:abd pain Dane Shah is a 69 yo M with hx COPD, TIA, GERD who presented for worsening epigastric and RUQ pain as well as diarrhea x2 weeks. He was found to have elevated LFTs and CT showed CBD dilation and mucosal thickening of the colon. He reports a history of cholecystectomy had normal EGD and colonoscopy in 2016. He did mention suicidal ideation in the ED that he attributes to his severe pain. 04/21/2019: He continues to complain of abdominal pain today, has been on clear liquid diet and no nausea or vomiting. Pt was evaluated by GI and MRCP ordered as well as stool studies. Today he denies SI and attributes saying this to his abdominal pain. 04/22/2019 evaluated by psychiatry with recommendations noted and appreciated. Significant other brought in his BiPAP machine without his oxygen component, therefore did not use his BiPAP during the night. CO2 19. Hospital BiPAP machine being currently arranged. Evaluated by GI, Scheduled for MRCP today. Stool studies in progress. T bili 0.8, AST improving, 94, ALT and alk phos worsening , respectively 177 and 227. Lipase wnl. Creatinine 2.75. Reports diffuse unchanged abdominal pain, with pain management not lasting. Denies chest pain, palpitations or increasing shortness of breath. Evaluated by GI and psychiatry.Psychiatry discontinued Celexa as patient does not want to take this medication any longer and is agreeable to start duloxetine 30 mg daily for mood/neuropathic pain. This dose can be increased to 60 mg after 4-5 days at F/U with PCP. MRCP unable to be completed secondary to patient's weight. LFTs continue to improve. Denies nausea vomiting or diarrhea. Diffuse abdominal pain improving. Stool cultures pending. Significant clinical improvement. Cleared by all consults for discharge. Potential outpatient MRCP as per GI/PCP. Patient is being discharged home in a stable condition with guarded prognosis. - Exam Gen: Alert and oriented 3, no acute distress CV: RRR, no murmur Lungs: normal effort, clear throughout Abd: soft, generalized diffuse tenderness. BS + Neuro: No focal deficits The impression and plan of care has been dictated as directed. : I performed a history and examination of this patient, discussed the same with the dictator. I agree with the dictator's note ,documented as a scribe. Any additional findings or plans will be noted. Patient Condition at Discharge: Stable Plan - Discharge Summary Discharge Rx Participant: Yes New Discharge Prescriptions: New DULoxetine HCL [Cymbalta] 30 mg PO DAILY #30 capsule. Ondansetron HCl [Zofran] 4 mg PO Q8H PRN #21 tab PRN Reason: Nausea And Vomiting Continue traMADol HCL [Tramadol HCl] 50 mg PO TID PRN PRN Reason: Pain amLODIPine BESYLATE [Amlodipine Besylate] 10 mg PO DAILY Omeprazole 40 mg PO DAILY #60 capsule. cloNIDine HCL [Catapres] 0.1 mg PO BID Gabapentin 300 mg PO BID Metoprolol Tartrate [Lopressor] 50 mg PO BID Furosemide [Lasix] 20 mg PO HS INSULIN ASPART (NovoLOG) [NovoLOG (formulary)] 6 units SQ AC-TID Atorvastatin [Lipitor] 40 mg PO HS Discontinued Citalopram Hydrobromide [Citalopram HBr] 40 mg PO DAILY Acetaminophen [Tylenol Arthritis] 650 mg PO Q6H PRN PRN Reason: Pain Discharge Medication List amLODIPine BESYLATE [Amlodipine Besylate] 10 mg PO DAILY 10/26/15 [History] traMADol HCL [Tramadol HCl] 50 mg PO TID PRN 10/26/15 [History] Omeprazole 40 mg PO DAILY #60 capsule. 12/31/17 [Rx] Gabapentin 300 mg PO BID 10/25/18 [History] cloNIDine HCL [Catapres] 0.1 mg PO BID 10/25/18 [History] Furosemide [Lasix] 20 mg PO HS 04/20/19 [History] INSULIN ASPART (NovoLOG) [NovoLOG (formulary)] 6 units SQ AC-TID 04/20/19 [History] Metoprolol Tartrate [Lopressor] 50 mg PO BID 04/20/19 [History] Atorvastatin [Lipitor] 40 mg PO HS 04/21/19 [History] DULoxetine HCL [Cymbalta] 30 mg PO DAILY #30 capsule. 04/23/19 [Rx] Ondansetron HCl [Zofran] 4 mg PO Q8H PRN #21 tab 04/23/19 [Rx] Follow up Appointment(s)/Referral(s): [facility], Psychiatry [Other] - 1 Week Elena Rodriguez DO [Primary Care Provider] - 05/15/19 3:30 pm Ridge Angel MD [STAFF PHYSICIAN] - 05/08/19 3:45 pm Ambulatory/Diagnostic Orders: Complete Blood Count w/diff [LAB.AMB] Time Frame: 3 Days, Location: None Selected Patient Instructions/Handouts: Colitis (ED) Activity/Diet/Wound Care/Special Instructions: Psychiatry discontinued Celexa at this time is patient does not want to take this medication any longer and is agreeable to start duloxetine 30 mg daily for mood/neuropathic pain. This dose can be increased to 60 mg after 4-5 days at F/U with PCP. Lasix dose decreased to 20mg daily, r/t renal fx. C-Pap Outpatient open MRI to be arranged as per PCP or GI if abdominal pain persists, Dr. Reyes DIet: low fat
[2019-04-23 11:12] VITALS: PULSE 68
[2019-04-23 12:24] LABS: Hepatitis A Antibody IgM Non-Reactive (Non-Reactive); Hepatitis B Core IgM Non-Reactive (Non-Reactive); Hepatitis B Surface Antigen Non-Reactive (Non-Reactive); Hepatitis C IgG Antibody Non-Reactive (Non-Reactive)
--- NOTE | 2019-04-23 13:53 | PN ---
PROGRESS NOTE DATE OF SERVICE: 04/23/2019 Patient is a 69-year-old pleasant white male who was admitted to the hospital with severe diarrhea of 2 weeks' duration. He was having 10 to 15 bowel movements daily. Diarrhea has significantly improved. He had only 2 bowel movements this morning. He had only 2 bowel movements yesterday and today had none so far. He still has some mild right upper quadrant abdominal pain. No nausea, vomiting. Tolerating diet well. PHYSICAL EXAMINATION: Appears comfortable, in no apparent distress. Vital signs are stable. Blood pressure 188/86, pulse rate 67, temperature 98.7. HEENT: Examination unremarkable. Conjunctivae are pink. Sclerae nonicteric. Oral cavity no lesions. NECK: No JVD or lymph node enlargement. CHEST: Clear to auscultation. HEART: Regular rate and rhythm. ABDOMEN: Soft. There was mild tenderness in the epigastric and right upper quadrant area. EXTREMITIES: No pedal edema. SKIN: No rashes. NEURO: He is alert and oriented x3. No focal deficits. LABS: From today WBC 7.4, hemoglobin 11, platelets 120, BUN 30, creatinine 2.69, AST is 42, ALT is 108, and alkaline phosphatase is 190. IMPRESSION: 1. Acute onset of diarrhea for the last 2 weeks' duration. Stool studies negative, diarrhea has significantly improved. 2. Right upper quadrant abdominal pain, mild elevation of serum transaminases, which are gradually improving. CT of the abdomen that was done at the time of admission to the hospital did show evidence of biliary ductal dilation. The distal common bile duct measuring 3 cm in diameter, but no obvious stones identified. MRCP was scheduled but was not done because of patient's body habitus. In any event, serum transaminases have improved significantly. 3. Mild thrombocytopenia, rule out underlying chronic liver disease. The CAT scan did show evidence of hepatosplenomegaly, possibility of an underlying cirrhosis cannot be excluded. RECOMMENDATIONS: 1. Patient can be discharged home. 2. Schedule him for an outpatient MRCP to evaluate the CBD and rule out CBD stone. 3. Monitor the LFTs on outpatient basis. Patient was advised to follow up in office in 2 weeks. Thank you for this consultation. MMODL / IJN: [id number] /
== END 2019-04-23 11:30 | disposition home or self-care (01) | DRG 392 ==
LOC: EC 08:47 → 4SSUR 12:57 → OBSVTOIN 04-22 08:14
PROVIDERS: ADMIT Family Medicine; ATTEND Family Medicine
DX: A09 Infectious gastroenteritis and colitis, unspecified (principal); R45.851 Suicidal ideations; K57.92 Diverticulitis of intestine, part unspecified, without perforation or abscess without bleeding; Z86.73 Personal history of transient ischemic attack (TIA), and cerebral infarction without residual deficits; K21.9 Gastro-esophageal reflux disease without esophagitis; J44.9 Chronic obstructive pulmonary disease, unspecified; K83.8 Other specified diseases of biliary tract; Z90.49 Acquired absence of other specified parts of digestive tract; N18.3 Chronic kidney disease, stage 3 (moderate); I12.9 Hypertensive chronic kidney disease with stage 1 through stage 4 chronic kidney disease, or unspecified chronic kidney disease; E11.22 Type 2 diabetes mellitus with diabetic chronic kidney disease; M19.90 Unspecified osteoarthritis, unspecified site; I25.10 Atherosclerotic heart disease of native coronary artery without angina pectoris; D63.8 Anemia in other chronic diseases classified elsewhere; F32.9 Major depressive disorder, single episode, unspecified; K76.9 Liver disease, unspecified; Z95.5 Presence of coronary angioplasty implant and graft; F41.9 Anxiety disorder, unspecified; Z87.891 Personal history of nicotine dependence; Z68.38 Body mass index [BMI] 38.0-38.9, adult; E66.9 Obesity, unspecified; E78.5 Hyperlipidemia, unspecified; K80.20 Calculus of gallbladder without cholecystitis without obstruction; K63.5 Polyp of colon; K29.70 Gastritis, unspecified, without bleeding; R79.1 Abnormal coagulation profile; Z79.01 Long term (current) use of anticoagulants; Z79.4 Long term (current) use of insulin; Z80.9 Family history of malignant neoplasm, unspecified; G47.30 Sleep apnea, unspecified; D69.59 Other secondary thrombocytopenia; Z79.899 Other long term (current) drug therapy
CPT/HCPCS: 36415; 71045; 74018; 74176; 80053; 80074; 80306; 80320; 81001; 82075; 82150; 83690; 85025; 85027; 85610; 85730; 87328; 87329; 93005; 93306; 96361; 96374; 99285

== ENCOUNTER 2019-05-23 05:04 | Emergency (ER) | payer MEDICARE ==
--- NOTE | 2019-05-23 05:11 | ED ---
Altered Mental Status HPI - General Stated Complaint: Altered Mental Status Time Seen by Provider: 05/23/19 05:05 - History of Present Illness Initial Comments: Dane is a 69-year-old gentleman who is brought to the emergency department today by EMS for evaluation of altered mental status. History is provided primarily by the . reports that approximately week ago she began noticing the patient had a tremor in his right arm and some slurred speech. This was new for him. This persisted for approximately 3 days at which time she decided to have a evaluated by his primary care physician. Upon evaluation the primary care physician recommended an outpatient MRI and evaluation by neurology however they've been unable to do either of those. reports they were in his usual state of health when he went to bed last night, he did still have intermittent slurred speech and tremor. was woken the middle of the night by the patient grabbing her neck and talking about some nonsense about their dogs. She was able to remove his hands from her neck but reported the patient did not seem to be himself at all, seemed very confused and out of it so she decided to call 911. Upon EMS arrival the patient was awake alert had some slurred speech but was moving all extremities had mild tremor in his right arm and was noted to be profoundly hypertensive. Patient offered no complaints but had no recall of what happened prior to EMS arrival. - Related Data Home Medications Medication Instructions Recorded Confirmed amLODIPine BESYLATE [Amlodipine 10 mg PO DAILY 10/26/15 04/20/19 Besylate] traMADol HCL [Tramadol HCl] 50 mg PO TID PRN 10/26/15 04/20/19 Gabapentin 300 mg PO BID 10/25/18 04/20/19 cloNIDine HCL [Catapres] 0.1 mg PO BID 10/25/18 04/20/19 Furosemide [Lasix] 20 mg PO HS 04/20/19 04/20/19 INSULIN ASPART (NovoLOG) [NovoLOG 6 units SQ AC-TID 04/20/19 04/20/19 (formulary)] Metoprolol Tartrate [Lopressor] 50 mg PO BID 04/20/19 04/20/19 Atorvastatin [Lipitor] 40 mg PO HS 04/21/19 04/21/19 Previous Rx's Medication Instructions Recorded Omeprazole 40 mg PO DAILY #60 capsule. 12/31/17 DULoxetine HCL [Cymbalta] 30 mg PO DAILY #30 capsule. 04/23/19 Ondansetron HCl [Zofran] 4 mg PO Q8H PRN #21 tab 04/23/19 Allergies Allergy/AdvReac Type Severity Reaction Status Date / Time neomycin Allergy Itching Verified 05/23/19 05:23 Review of Systems ROS Statement: Those systems with pertinent positive or pertinent negative responses have been documented in the HPI. ROS Other: All systems not noted in ROS Statement are negative. Past Medical History Past Medical History: COPD, CVA/TIA, Diabetes Mellitus, GERD/Reflux, Hypertension, Osteoarthritis (OA), Sleep Apnea/CPAP/BIPAP Additional Past Medical History / Comment(s): having "stomach problems",has cpap History of Any Multi-Drug Resistant Organisms: None Reported Past Surgical History: Cholecystectomy, Heart Catheterization With Stent, Hernia Repair, Orthopedic Surgery Additional Past Surgical History / Comment(s): heart stents x 3,carpal tunnel, right carotid, RIGHT HIP with pin, rt shoulder, umbilical hernia Past Anesthesia/Blood Transfusion Reactions: No Reported Reaction Date of Last Stent Placement:: 12-10-17 Past Psychological History: Anxiety, Depression Smoking Status: Former smoker Past Alcohol Use History: None Reported Additional Past Alcohol Use History / Comment(s): STARTED SMOKING AT AGE 15 QUIT SMOKING AT AGE 35 SMOKED 2-3 PPD Past Drug Use History: None Reported - Past Family History Mother Family Medical History: Cancer General Exam - General Exam Comments Initial Comments: Physical Exam GENERAL: Patient is well-developed and well-nourished. Patient is nontoxic and well-hydrated and is in no distress. HENT: Normocephalic, Atraumatic. EYES: PERRL, EOMI PULMONARY: Unlabored respirations. CARDIOVASCULAR: RRR Warm and well perfused extremities ABDOMEN: Non-distended SKIN: No rashes or bruising : Deferred NEUROLOGIC: Awake, alert, oriented to person, able to identify his hospital, confused about day, date events leading up to hospitalization Tremor right arm MUSCULOSKELETAL: Moving all extremities with no apparent injury PSYCHIATRIC: Unable to assess secondary to confusion Course Vital Signs 05/23/19 05/23/19 05/23/19 05:10 05:30 05:45 Temperature 98.3 F 98.2 F Pulse Rate 77 60 60 Respiratory 18 18 18 Rate Blood Pressure 205/106 205/97 179/83 O2 Sat by Pulse 97 96 97 Oximetry 05/23/19 05/23/19 05/23/19 06:00 06:15 06:30 Temperature 98 F 98.2 F Pulse Rate 65 60 62 Respiratory 18 17 18 Rate Blood Pressure 194/90 178/79 198/89 O2 Sat by Pulse 97 97 97 Oximetry 05/23/19 05/23/19 06:45 07:00 Temperature Pulse Rate 65 62 Respiratory 18 18 Rate Blood Pressure 199/101 194/89 O2 Sat by Pulse 98 98 Oximetry Medical Decision Making - Medical Decision Making The patient was seen and evaluated immediately upon arrival to the emergency department, patient was slurred speech right arm tremor profound hypertension, patient was taken from EMS bay to the CT scanner for a stroke workup However patient's symptoms have been present for greater than 5 days therefore he is not a candidate for stroke intervention and a code stroke will not be activated Head CT was negative for acute pathology Labs are patient's baseline, chronic kidney disease, chronic anemia no other acute abnormalities identified Patient's blood pressure improved slightly after hydralazine and clonidine Results were discussed with patient who is now much more awake and with it though he still doesn't recall events leading up to hospitalization, plan for transfer to facility with neurology capabilities were discussed with patient and who are agreeable. Patient will be transferred to [facility]. Patient care was discussed Dr. Bang who accepts the transfer. - Lab Data Result diagrams: 05/23/19 05:00 05/23/19 05:00 Lab Results 05/23/19 05/23/19 05/23/19 Range/Units 05:00 05:00 05:00 WBC 5.2 (3.8-10.6) k/uL RBC 4.42 (4.30-5.90) m/uL Hgb 12.1 L (13.0-17.5) gm/dL Hct 36.4 L (39.0-53.0) % MCV 82.3 (80.0-100.0) fL MCH 27.4 (25.0-35.0) pg MCHC 33.3 (31.0-37.0) g/dL RDW 14.2 (11.5-15.5) % Plt Count 115 L (150-450) k/uL Neutrophils % 70 % Lymphocytes % 16 % Monocytes % 8 % Eosinophils % 3 % Basophils % 0 % Neutrophils # 3.6 (1.3-7.7) k/uL Lymphocytes # 0.8 L (1.0-4.8) k/uL Monocytes # 0.4 (0-1.0) k/uL Eosinophils # 0.2 (0-0.7) k/uL Basophils # 0.0 (0-0.2) k/uL PT 11.5 (9.0-12.0) sec INR 1.1 (<1.2) APTT 23.3 (22.0-30.0) sec Sodium 138 (137-145) mmol/L Potassium 5.0 (3.5-5.1) mmol/L Chloride 109 H (98-107) mmol/L Carbon Dioxide 22 (22-30) mmol/L Anion Gap 7 mmol/L BUN 32 H (9-20) mg/dL Creatinine 2.79 H (0.66-1.25) mg/dL Est GFR (CKD-EPI)AfAm 26 (>60 ml/min/1.73 sqM) Est GFR (CKD-EPI)NonAf 22 (>60 ml/min/1.73 sqM) Glucose 181 H (74-99) mg/dL POC Glucose (mg/dL) (75-99) mg/dL POC Glu Veneer Lathe Operator ID Calcium 9.1 (8.4-10.2) mg/dL Total Bilirubin 0.4 (0.2-1.3) mg/dL AST 21 (17-59) U/L ALT 11 (4-49) U/L Alkaline Phosphatase 99 (38-126) U/L Troponin I (0.000-0.034) ng/mL Total Protein 6.9 (6.3-8.2) g/dL Albumin 4.2 (3.5-5.0) g/dL 05/23/19 05/23/19 Range/Units 05:00 05:19 WBC (3.8-10.6) k/uL RBC (4.30-5.90) m/uL Hgb (13.0-17.5) gm/dL Hct (39.0-53.0) % MCV (80.0-100.0) fL MCH (25.0-35.0) pg MCHC (31.0-37.0) g/dL RDW (11.5-15.5) % Plt Count (150-450) k/uL Neutrophils % % Lymphocytes % % Monocytes % % Eosinophils % % Basophils % % Neutrophils # (1.3-7.7) k/uL Lymphocytes # (1.0-4.8) k/uL Monocytes # (0-1.0) k/uL Eosinophils # (0-0.7) k/uL Basophils # (0-0.2) k/uL PT (9.0-12.0) sec INR (<1.2) APTT (22.0-30.0) sec Sodium (137-145) mmol/L Potassium (3.5-5.1) mmol/L Chloride (98-107) mmol/L Carbon Dioxide (22-30) mmol/L Anion Gap mmol/L BUN (9-20) mg/dL Creatinine (0.66-1.25) mg/dL Est GFR (CKD-EPI)AfAm (>60 ml/min/1.73 sqM) Est GFR (CKD-EPI)NonAf (>60 ml/min/1.73 sqM) Glucose (74-99) mg/dL POC Glucose (mg/dL) 223 H (75-99) mg/dL POC Glu Veneer Lathe Operator ID Hayden Acevedo Calcium (8.4-10.2) mg/dL Total Bilirubin (0.2-1.3) mg/dL AST (17-59) U/L ALT (4-49) U/L Alkaline Phosphatase (38-126) U/L Troponin I <0.012 (0.000-0.034) ng/mL Total Protein (6.3-8.2) g/dL Albumin (3.5-5.0) g/dL - EKG Data -: EKG Interpreted by Me EKG Comments: EKG was obtained due to altered mental status, EKG was obtained at 5:26 AM, rate 68 rhythm sinus, there is a normal axis, there are normal intervals, AK 160, QRS 88, QTC is 433. There are no acute ST elevations or depressions no evidence of acute ischemia or infarction. Disposition Clinical Impression: Altered mental status, Hypertension, Tremor Disposition: OTHER INSTITUTION NOT DEFINED Condition: Serious Is patient prescribed a controlled substance at d/c from ED?: No Referrals: Elena Rodriguez DO [Primary Care Provider] - 1-2 days - Out of Hospital Transfer - Req. Specs Out of Hospital Transfer - Requested Specifics: Other Emergency Center ([facility])
--- NOTE | 2019-05-23 05:18 | CT ---
EXAMINATION TYPE: CT brain wo con for TPA DATE OF EXAM: 05/23/2019 COMPARISON: 10/25/2018 HISTORY: AMS/Code Stroke CT DLP: 1162.4 mGycm Automated exposure control for dose reduction was used. There is cerebral cortical atrophy. There is no mass effect nor midline shift. There is no sign of in tracranial hemorrhage. The calvarium is intact. There is no evidence of cerebral edema. There is left side maxillary sinus mucosal thickening. IMPRESSION: Cerebral atrophy. No acute intracranial abnormality. Chronic left maxillary sinusitis. No change.
[2019-05-23 05:21] LABS: Glucose,Whole Blood 223 mg/dL (75-99)
--- NOTE | 2019-05-23 05:22 | XR ---
EXAMINATION TYPE: XR chest 1V portable DATE OF EXAM: 05/23/2019 COMPARISON: 04/22/2019 HISTORY: Weakness TECHNIQUE: Single view supine FINDINGS: There is elevated left diaphragm. There is no heart failure. Lungs are clear of consolidati on. Heart appears shifted to the right side probably due to the elevated diaphragm. The bony thorax i s intact. IMPRESSION: Chronic diaphragm elevation on the left side probably due to paralysis that is slightly w orse than last exam. No heart failure.
[2019-05-23] MEDS ORDERED: hydrALAZINE HCL 20 MG/ML 1 ML VIAL IVP STA ×2 (05:27→07:08)
[2019-05-23 05:32] LABS: Basophils % (A) 0 %; Eosinophils # (A) 0.2 k/uL (0-0.7); Eosinophils % (A) 3 %; HCT 36.4 % (39.0-53.0); HGB 12.1 gm/dL (13.0-17.5); Lymphocytes # (A) 0.8 k/uL (1.0-4.8); Lymphocytes % (A) 16 %; MCH 27.4 pg (25.0-35.0); MCHC 33.3 g/dL (31.0-37.0); MCV 82.3 fL (80.0-100.0); Mean Platelet Volume 8.4; Monocytes # (A) 0.4 k/uL (0-1.0); Monocytes % (A) 8 %; Neutrophils # (A) 3.6 k/uL (1.3-7.7); Neutrophils % (A) 70 %; Platelet Count 115 k/uL (150-450); RBC 4.42 m/uL (4.30-5.90); RDW 14.2 % (11.5-15.5); WBC 5.2 k/uL (3.8-10.6)
[2019-05-23 05:42] LABS: INR 1.1 (<1.2); Partial Thromboplastin Time 23.3 sec (22.0-30.0); Prothrombin Time 11.5 sec (9.0-12.0)
[2019-05-23 05:49] LABS: Albumin 4.2 g/dL (3.5-5.0); Calcium 9.1 mg/dL (8.4-10.2); Total Bilirubin 0.4 mg/dL (0.2-1.3); Total Protein 6.9 g/dL (6.3-8.2)
[2019-05-23] MEDS ORDERED: cloNIDine HCL 0.1 MG TAB PO STA (06:10)
[2019-05-23 06:18] VITALS: TEMP 98.2
[2019-05-23 07:19] VITALS: RESP 18
[2019-05-23 07:20] VITALS: BP 194/89; PULSE 62
== END 2019-05-23 07:25 | disposition short-term general hospital (02) ==
LOC: EC 05:04
DX: I10 Essential (primary) hypertension (principal); R25.1 Tremor, unspecified; R41.0 Disorientation, unspecified; R47.81 Slurred speech; E11.9 Type 2 diabetes mellitus without complications; M19.90 Unspecified osteoarthritis, unspecified site; G47.30 Sleep apnea, unspecified; F41.9 Anxiety disorder, unspecified; Z87.891 Personal history of nicotine dependence; Z88.1 Allergy status to other antibiotic agents; Z79.4 Long term (current) use of insulin; Z79.899 Other long term (current) drug therapy; Z86.73 Personal history of transient ischemic attack (TIA), and cerebral infarction without residual deficits; Z95.5 Presence of coronary angioplasty implant and graft; Z96.698 Presence of other orthopedic joint implants; Z99.89 Dependence on other enabling machines and devices
CPT/HCPCS: 36415; 93005; 80053; 84484; 85025; 85610; 85730; 71045; 70450; 99285; 96374; 96376; J0360

== ENCOUNTER 2019-06-02 07:20 | Day surgery (SDC) | payer MEDICARE ==
[2019-05-29 12:44] VITALS: BMI 38.4
[~2019-06-02 07:20] MED LIST changes: +LIDOCAINE 1% (10MG/ML) FOR IV START INTRADERMA PRN; -LIDOCAINE 1% 20 ML VIAL (10MG/ML) FOR IV START INTRADERMA PRN
[2019-06-02 07:37] VITALS: TEMP 97.8
[2019-06-02] MEDS ORDERED: LIDOCAINE 1% (10MG/ML) FOR IV START INTRADERMA ONE (07:37)
[2019-06-02] MEDS ORDERED: LACTATED RINGERS 1,000 ML IV ONE (07:37)
[2019-06-02 07:44] LABS: Glucose,Whole Blood 179 mg/dL (75-99)
[2019-06-02] MEDS ORDERED: LIDOCAINE 1% INJ 10MG/ML (20 ML MDV) ONE (08:24)
[2019-06-02] MEDS ORDERED: PROPOFOL 10 MG/ML 20 ML VIAL IV ONE (08:24)
--- NOTE | 2019-06-02 09:07 | P.PCN ---
Date of Procedure: 06/02/19 Description of Procedure: Brief history: Patient is a pleasant scheduled for an elective upper endoscopy as well as colonoscopy as a part of evaluation of epigastric abdominal pain and change in bowel habits. Procedure performed: Esophagogastroduodenoscopy with biopsy Colonoscopy incomplete/aborted with biopsies taken of the left colon Estimated blood loss: Minimal. Preoperative diagnosis: Epigastric abdominal pain, change in bowel habits, last reported colonoscopy 2016 Anest[place]: [facility] [place] [facility] [place]: After informed consent was obtained from the patient was brought into the endoscopy unit and IV sedation was administered by anesthesia under continuous monitoring. Initially upper endoscopy was done. The Olympus GF 190 video endoscope was inserted into the mouth and esophagus intubated without any difficulty and was gradually advanced into the stomach and duodenum and carefully examined. The bulb and second part of the duodenum appeared normal, with biopsies taken. The scope was then withdrawn into the stomach adequately insufflated with air and upon careful examination the antrum and body, cardia and fundus appeared normal, except for linear erythema in the antrum and punctate erythema in the body suggestive of mild gastritis with biopsies of antrum and body taken. The scope was then withdrawn into the esophagus. The GE junction was located at 45 cm to the incisors and appeared normal with biopsies taken. It appeared regular with no erythema erosions or ulcerations. Rest of the esophagus appeared normal. Patient tolerated the procedure well. At this time the patient continued to remain sedation. Initial digital rectal examination was normal. Olympus CF 190 video colonoscope was then inserted into the rectum and gradually advanced to the transverse colon at which time the procedure was aborted due to a poor prep with a large amount of liquid and solid stool throughout the entire examined colon. The examined transverse colon, descending colon, sigmoid colon and rectum appeared normal, however complete visualization of the mucosa was severely prohibited by the patient's poor prep. Moderate left colonic diverticulosis noted. Random biopsies of the left colon in the setting of altered bowel function. Retroflexion was performed in the rectum and no lesions were noted. Patient tolerated the procedure well. Impression: 1. Mild gastritis antrum and body, biopsied. Biopsies of the duodenum and GE junction. 2. Moderate left colonic diverticulosis. Poor prep with incomplete colonoscopy approximately to the level of the mid to distal transverse colon. Biopsies of the left colon. Recommendations: Findings of this examination were discussed with the patient as well as his . Okay to resume diet. Okay to resume medications. Await pathology from biopsies. Follow up in gastroenterology clinic as previously scheduled. Can consider further imaging of the colon with CT colonoscopy or x-ray barium enema pending symptoms and clinical course.
[2019-06-02 09:12] VITALS: RESP 16
[2019-06-02 09:22] VITALS: BP 166/81; PULSE 80
== END 2019-06-02 09:41 | disposition home or self-care (01) ==
LOC: ORWHC2ENDO 07:20
PROVIDERS: ATTEND Internal Medicine
DX: K21.0 Gastro-esophageal reflux disease with esophagitis (principal); K31.9 Disease of stomach and duodenum, unspecified; K29.70 Gastritis, unspecified, without bleeding; K57.30 Diverticulosis of large intestine without perforation or abscess without bleeding; I25.10 Atherosclerotic heart disease of native coronary artery without angina pectoris; I10 Essential (primary) hypertension; E78.5 Hyperlipidemia, unspecified; I35.0 Nonrheumatic aortic (valve) stenosis; J44.9 Chronic obstructive pulmonary disease, unspecified; G47.33 Obstructive sleep apnea (adult) (pediatric); E11.9 Type 2 diabetes mellitus without complications; N28.9 Disorder of kidney and ureter, unspecified; R25.1 Tremor, unspecified; M19.90 Unspecified osteoarthritis, unspecified site; F32.9 Major depressive disorder, single episode, unspecified; F41.9 Anxiety disorder, unspecified; Z87.891 Personal history of nicotine dependence; Z88.1 Allergy status to other antibiotic agents; Z79.899 Other long term (current) drug therapy; Z79.891 Long term (current) use of opiate analgesic; Z79.4 Long term (current) use of insulin; Z79.82 Long term (current) use of aspirin; Z90.49 Acquired absence of other specified parts of digestive tract; Z95.5 Presence of coronary angioplasty implant and graft; Z98.890 Other specified postprocedural states; Z86.69 Personal history of other diseases of the nervous system and sense organs; Z97.2 Presence of dental prosthetic device (complete) (partial); Z86.73 Personal history of transient ischemic attack (TIA), and cerebral infarction without residual deficits
CPT/HCPCS: 88305; 45380; 43239; J2001; J2704

== ENCOUNTER 2019-09-14 08:15 | Emergency (ER) | payer MEDICARE ==
[2019-09-14 08:22] VITALS: RESP 18
[2019-09-14] MEDS ORDERED: NALOXONE 0.4 MG/ML 1 ML VIAL IV STA (08:27)
[2019-09-14 08:28] LABS: Glucose,Whole Blood 210 mg/dL (75-99)
--- NOTE | 2019-09-14 08:39 | ED ---
General Adult HPI - General Chief complaint: Altered Mental Status Stated complaint: AMS Time Seen by Provider: 09/14/19 08:18 Source: family, EMS Mode of arrival: EMS Limitations: altered mental status, physical limitation - History of Present Illness Initial comments: Dictation was produced using [employer] dictation software. please excuse any gramm atical, word or spelling errors. This patient was cared for during a federal and state declared state of emergency secondary to Covid 19 Chief Complaint: 69-year-old male with multiple comorbidities presents with altered mental status. History of Present Illness: Patient is a 69-year-old male who is brought in by EMS for altered mental status. is at bedside able to provide HPI. According to EMS, they were called for altered mental status. EMS reports that patient had normal blood glucose and stable vital signs. at bedside reports that patient has been lethargic and somnolent since yesterday. Patient was last seen normal 3 days ago according to .. Today's presentation is similar to a presentation that he had 6 months ago. He was initially seen in our emergency department transferred to [facility]. At that time, he was admitted at the hospital for approximately 5 days. reports that patient had a complete altered mental status workup with no apparent cause. reports that patient had been very sleepy and lethargic at bedside. repor ts that he follows commands however is very somnolent. EMS did not notice any focal neurologic deficit. Patient unable to provide HPI this time. The ROS documented in this emergency department record has been reviewed and confirmed by me. Those systems with pertinent positive or negative responses have been documented in the HPI. All other systems are other negative and/or noncontributory. PHYSICAL EXAM: General Impression: Alert and oriented x2/4, somnolent HEENT: Normocephalic atraumatic, extra-ocular movements intact, pupils equal and reactive to light bilaterally, dry mucous membranes Cardiovascular: Heart regular rate and rhythm Chest: Bilateral breath sounds Abdomen: abdomen soft, non-tender, non-distended, no organomegaly Musculoskeletal: Pulses present and equal in all extremities, no peripheral edema Motor: Moves all shows grossly Neurological: CN II-XII grossly intact, no focal motor or sensory deficits noted Skin: Nontender dermatomal rash to the right flank ED course: 69-year-old male presents with altered mental status. Patient does not have any asymmetrical focal neurologic deficits. Time of onset of his symptoms was yesterday. He does appear to be very sleepy. He is generally weak. When really stimulated patient does respond appropriately. Vital signs upon arrival are within acceptable limits. Point of care blood glucose is 200. Patient was given 0.4 mg of Narcan with no change in mental status. Patient has been symptomatic for 3 days. reports last seen normal 3 days ago. Code stroke not activated at this time. Laboratory evaluation obtained. CBC unremarkable. Coag unremarkable. Metabolic panel shows creatinine of 2.53 and a BUN 36. Patient has elevated renal markers. Rest metabolic panel is unremarkable. Urinalysis negative. Tox screen is negative. Osmole gap is 6. We do not have neurology at our facility at this time. There is concern of stroke however based on clinical presentation encephalopathy is more likely at this time. Discussed patient case with Dr. Yaniv Mejia was accepting patient for ER to ER transfer. Patient showing features of acute delirium. He is trying to get out of bed. Still con tinues to move all his extremities. Patient given aspirin. EKG interpretation: Ventricular rate 58, sinus bradycardia, SC interval 162, QRS 86, QTC 428. No SC prolongation, no QTC prolongation, no ST or T-wave changes noted. EKG compared to 05/23/2019 showing no changes. Overall, this EKG is unr emarkable - Related Data Home Medications Medication Instructions Recorded Confirmed amLODIPine BESYLATE [Amlodipine 10 mg PO DAILY 10/26/15 09/14/19 Besylate] traMADol HCL [Tramadol HCl] 50 mg PO TID PRN 10/26/15 09/14/19 Gabapentin 600 mg PO TID 10/25/18 09/14/19 Metoprolol Tartrate [Lopressor] 50 mg PO BID 04/20/19 09/14/19 Furosemide [Lasix] 20 mg PO DAILY 05/29/19 09/14/19 Allopurinol [Zyloprim] 100 mg PO DAILY 09/14/19 09/14/19 Citalopram Hydrobromide [CeleXA] 40 mg PO DAILY 09/14/19 09/14/19 Furosemide [Lasix] 10 mg PO HS 09/14/19 09/14/19 Losartan Potassium 100 mg PO DAILY 09/14/19 09/14/19 Allergies Allergy/AdvReac Type Severity Reaction Status Date / Time neomycin Allergy Itching Verified 09/14/19 09:49 Review of Systems ROS Statement: Those systems with pertinent positive or pertinent negative responses have been documented in the HPI. ROS Other: All systems not noted in ROS Statement are negative. Past Medical History Past Medical History: COPD, CVA/TIA, Diabetes Mellitus, GERD/Reflux, Hypertension, Osteoarthritis (OA), Sleep Apnea/CPAP/BIPAP Additional Past Medical History / Comment(s): having "stomach problems",has cpap, TIA years ago, on 05-23-19 episode of confusion,slurred speech,tremors, combative @home, brought by EMS to , transferred to [facility], there for 6 days & never found anything per spouse, symptoms gone History of Any Multi-Drug Resistant Organisms: None Reported Past Surgical History: Cholecystectomy, Heart Catheterization With Stent, Hernia Repair, Orthopedic Surgery Additional Past Surgical History / Comment(s): heart stents x 3,carpal tunnel, left carotid endarterectomy, RIGHT HIP with pin, rt shoulder, umbilical hernia, CTS shayna x2 Past Anesthesia/Blood Transfusion Reactions: No Reported Reaction Date of Last Stent Placement:: 12-10-17 Past Psychological History: Anxiety, Depression Smoking Status: Former smoker Past Alcohol Use History: None Reported Past Drug Use History: None Reported - Past Family History Mother Family Medical History: Cancer General Exam Limitations: altered mental status, physical limitation Course Vital Signs 09/14/19 09/14/19 09/14/19 08:16 08:28 08:30 Temperature 98.5 F Pulse Rate 63 63 Respiratory 18 18 18 Rate Blood Pressure 180/92 O2 Sat by Pulse 94 L Oximetry 09/14/19 08:32 Temperature 98.5 F Pulse Rate 64 Respiratory 18 Rate Blood Pressure 180/92 O2 Sat by Pulse Oximetry Medical Decision Making - Lab Data Result diagrams: 09/14/19 08:36 09/14/19 08:36 Lab Results 09/14/19 09/14/19 09/14/19 Range/Units 08:19 08:36 08:36 WBC 6.3 (3.8-10.6) k/uL RBC 4.27 L (4.30-5.90) m/uL Hgb 12.1 L (13.0-17.5) gm/dL Hct 36.1 L (39.0-53.0) % MCV 84.4 (80.0-100.0) fL MCH 28.2 (25.0-35.0) pg MCHC 33.5 (31.0-37.0) g/dL RDW 15.1 (11.5-15.5) % Plt Count 143 L (150-450) k/uL Neutrophils % 66 % Lymphocytes % 21 % Monocytes % 7 % Eosinophils % 4 % Basophils % 1 % Neutrophils # 4.2 (1.3-7.7) k/uL Lymphocytes # 1.3 (1.0-4.8) k/uL Monocytes # 0.4 (0-1.0) k/uL Eosinophils # 0.2 (0-0.7) k/uL Basophils # 0.1 (0-0.2) k/uL PT (9.0-12.0) sec INR (<1.2) APTT (22.0-30.0) sec Sodium 139 (137-145) mmol/L Potassium 5.0 (3.5-5.1) mmol/L Chloride 111 H (98-107) mmol/L Carbon Dioxide 20 L (22-30) mmol/L Anion Gap 8 mmol/L BUN 36 H (9-20) mg/dL Creatinine 2.53 H (0.66-1.25) mg/dL Est GFR (CKD-EPI)AfAm 29 (>60 ml/min/1.73 sqM) Est GFR (CKD-EPI)NonAf 25 (>60 ml/min/1.73 sqM) Glucose 188 H (74-99) mg/dL POC Glucose (mg/dL) 210 H (75-99) mg/dL POC Glu [employer] ID Mercedes Brown Osmolality 307 H (280-301) mosm/kg Plasma Lactic Acid Efrain (0.7-2.0) mmol/L Calcium 8.6 (8.4-10.2) mg/dL Ionized Calcium [place] 5.1 (4.5-5.3) mg/dL Magnesium 1.9 (1.6-2.3) mg/dL Total Bilirubin 0.5 (0.2-1.3) mg/dL AST 19 (17-59) U/L ALT 18 (4-49) U/L Alkaline Phosphatase 105 (38-126) U/L Ammonia (<30) umol/L Troponin I (0.000-0.034) ng/mL C-Reactive Protein 7.0 (<10.0) mg/L Total Protein 6.3 (6.3-8.2) g/dL Albumin 3.7 (3.5-5.0) g/dL Lipase 158 (23-300) U/L TSH 2.040 (0.465-4.680) mIU/L Urine Color Urine Appearance (Clear) Urine pH (5.0-8.0) Ur Specific [place] (1.001-1.035) Urine Protein (Negative) Urine Glucose (UA) (Negative) Urine Ketones (Negative) Urine Blood (Negative) Urine Nitrite (Negative) Urine Bilirubin (Negative) Urine Urobilinogen (<2.0) mg/dL Ur Leukocyte Esterase (Negative) Salicylates <1.0 mg/dL Acetaminophen <10.0 ug/mL Serum Alcohol <10 mg/dL 09/14/19 09/14/19 09/14/19 Range/Units 08:36 08:36 08:36 WBC (3.8-10.6) k/uL RBC (4.30-5.90) m/uL Hgb (13.0-17.5) gm/dL Hct (39.0-53.0) % MCV (80.0-100.0) fL MCH (25.0-35.0) pg MCHC (31.0-37.0) g/dL RDW (11.5-15.5) % Plt Count (150-450) k/uL Neutrophils % % Lymphocytes % % Monocytes % % Eosinophils % % Basophils % % Neutrophils # (1.3-7.7) k/uL Lymphocytes # (1.0-4.8) k/uL Monocytes # (0-1.0) k/uL Eosinophils # (0-0.7) k/uL Basophils # (0-0.2) k/uL PT 11.2 (9.0-12.0) sec INR 1.1 (<1.2) APTT 22.7 (22.0-30.0) sec Sodium (137-145) mmol/L Potassium (3.5-5.1) mmol/L Chloride (98-107) mmol/L Carbon Dioxide (22-30) mmol/L Anion Gap mmol/L BUN (9-20) mg/dL Creatinine (0.66-1.25) mg/dL Est GFR (CKD-EPI)AfAm (>60 ml/min/1.73 sqM) Est GFR (CKD-EPI)NonAf (>60 ml/min/1.73 sqM) Glucose (74-99) mg/dL POC Glucose (mg/dL) (75-99) mg/dL POC Glu [employer] ID Osmolality (280-301) mosm/kg Plasma Lactic Acid Efrain 1.3 (0.7-2.0) mmol/L Calcium (8.4-10.2) mg/dL Ionized Calcium [place] (4.5-5.3) mg/dL Magnesium (1.6-2.3) mg/dL Total Bilirubin (0.2-1.3) mg/dL AST (17-59) U/L ALT (4-49) U/L Alkaline Phosphatase (38-126) U/L Ammonia <9 (<30) umol/L Troponin I <0.012 (0.000-0.034) ng/mL C-Reactive Protein (<10.0) mg/L Total Protein (6.3-8.2) g/dL Albumin (3.5-5.0) g/dL Lipase (23-300) U/L TSH (0.465-4.680) mIU/L Urine Color Urine Appearance (Clear) Urine pH (5.0-8.0) Ur Specific [place] (1.001-1.035) Urine Protein (Negative) Urine Glucose (UA) (Negative) Urine Ketones (Negative) Urine Blood (Negative) Urine Nitrite (Negative) Urine Bilirubin (Negative) Urine Urobilinogen (<2.0) mg/dL Ur Leukocyte Esterase (Negative) Salicylates mg/dL Acetaminophen ug/mL Serum Alcohol mg/dL 09/14/19 Range/Units 09:40 WBC (3.8-10.6) k/uL RBC (4.30-5.90) m/uL Hgb (13.0-17.5) gm/dL Hct (39.0-53.0) % MCV (80.0-100.0) fL MCH (25.0-35.0) pg MCHC (31.0-37.0) g/dL RDW (11.5-15.5) % Plt Count (150-450) k/uL Neutrophils % % Lymphocytes % % Monocytes % % Eosinophils % % Basophils % % Neutrophils # (1.3-7.7) k/uL Lymphocytes # (1.0-4.8) k/uL Monocytes # (0-1.0) k/uL Eosinophils # (0-0.7) k/uL Basophils # (0-0.2) k/uL PT (9.0-12.0) sec INR (<1.2) APTT (22.0-30.0) sec Sodium (137-145) mmol/L Potassium (3.5-5.1) mmol/L Chloride (98-107) mmol/L Carbon Dioxide (22-30) mmol/L Anion Gap mmol/L BUN (9-20) mg/dL Creatinine (0.66-1.25) mg/dL Est GFR (CKD-EPI)AfAm (>60 ml/min/1.73 sqM) Est GFR (CKD-EPI)NonAf (>60 ml/min/1.73 sqM) Glucose (74-99) mg/dL POC Glucose (mg/dL) (75-99) mg/dL POC Glu [employer] ID Osmolality (280-301) mosm/kg Plasma Lactic Acid Efrain (0.7-2.0) mmol/L Calcium (8.4-10.2) mg/dL Ionized Calcium [place] (4.5-5.3) mg/dL Magnesium (1.6-2.3) mg/dL Total Bilirubin (0.2-1.3) mg/dL AST (17-59) U/L ALT (4-49) U/L Alkaline Phosphatase (38-126) U/L Ammonia (<30) umol/L Troponin I (0.000-0.034) ng/mL C-Reactive Protein (<10.0) mg/L Total Protein (6.3-8.2) g/dL Albumin (3.5-5.0) g/dL Lipase (23-300) U/L TSH (0.465-4.680) mIU/L Urine Color Light Yellow Urine Appearance Clear (Clear) Urine pH 5.0 (5.0-8.0) Ur Specific [place] 1.007 (1.001-1.035) Urine Protein Trace H (Negative) Urine Glucose (UA) Negative (Negative) Urine Ketones Negative (Negative) Urine Blood Negative (Negative) Urine Nitrite Negative (Negative) Urine Bilirubin Negative (Negative) Urine Urobilinogen <2.0 (<2.0) mg/dL Ur Leukocyte Esterase Negative (Negative) Salicylates mg/dL Acetaminophen ug/mL Serum Alcohol mg/dL Disposition Clinical Impression: Altered mental status Disposition: OTHER INSTITUTION NOT DEFINED Condition: Critical Referrals: Elena Rodriguez DO [Primary Care Provider] - 1-2 days Time of Disposition: 10:56 - Out of Hospital Transfer - Req. Specs Out of Hospital Transfer - Requested Specifics: Other Emergency Center ([facility])
[2019-09-14] MEDS ORDERED: SODIUM CHLORIDE 0.9% 1,000 ML IV STA (08:40)
[2019-09-14 08:57] LABS: Ionized Calcium 5.1 mg/dL (4.5-5.3)
[2019-09-14 09:02] LABS: Lactic Acid, Venous 1.3 mmol/L (0.7-2.0)
--- NOTE | 2019-09-14 09:09 | CT ---
EXAMINATION TYPE: CT brain wo con DATE OF EXAM: 09/14/2019 COMPARISON: Previous study dated 05/23/2019. HISTORY: Altered mental status CT DLP: 1231.4 mGycm Automated exposure control for dose reduction was used. FINDINGS: There are mild, generalized changes of sulcal prominence and ventriculomegaly, compatible with atroph ic change. There is diffuse periventricular white matter lucency compatible with chronic white matter ischemic change. There is no acute focal lesion, mass effect or midline shift. I do not see evidence of intracranial blood. There is extensive vascular calcification. There is evidence of chronic left-sided maxillary sinus disease. The remaining paranasal sinuses and mastoids are clear. The bony calvarium is intact. IMPRESSION: 1. NO ACUTE INTRACRANIAL ABNORMALITY. 2. DEGENERATIVE CHANGE. 3. CHRONIC LEFT MAXILLARY SINUS MUCOSAL DISEASE.
[2019-09-14 09:12] LABS: ALT 18 U/L (4-49); AST 19 U/L (17-59); Acetaminophen <10.0 ug/mL; African American GFR (CKD) 29 (>60 ml/min/1.73 sqM); Albumin 3.7 g/dL (3.5-5.0); Alcohol <10 mg/dL; Alkaline Phosphatase 105 U/L (38-126); Anion Gap 8 mmol/L; Blood Urea Nitrogen 36 mg/dL (9-20); Calcium 8.6 mg/dL (8.4-10.2); Carbon Dioxide 20 mmol/L (22-30); Chloride 111 mmol/L (98-107); Glucose 188 mg/dL (74-99); Magnesium 1.9 mg/dL (1.6-2.3); Non-African American GFR(CKD) 25 (>60 ml/min/1.73 sqM); Salicylate <1.0 mg/dL; Sodium 139 mmol/L (137-145); Total Bilirubin 0.5 mg/dL (0.2-1.3); Total Protein 6.3 g/dL (6.3-8.2)
[2019-09-14 09:13] LABS: Basophils # (A) 0.1 k/uL (0-0.2); Basophils % (A) 1 %; Eosinophils # (A) 0.2 k/uL (0-0.7); Eosinophils % (A) 4 %; HCT 36.1 % (39.0-53.0); HGB 12.1 gm/dL (13.0-17.5); Lymphocytes # (A) 1.3 k/uL (1.0-4.8); Lymphocytes % (A) 21 %; MCH 28.2 pg (25.0-35.0); MCHC 33.5 g/dL (31.0-37.0); MCV 84.4 fL (80.0-100.0); Mean Platelet Volume 8.6; Monocytes # (A) 0.4 k/uL (0-1.0); Monocytes % (A) 7 %; Neutrophils # (A) 4.2 k/uL (1.3-7.7); Neutrophils % (A) 66 %; Platelet Count 143 k/uL (150-450); RBC 4.27 m/uL (4.30-5.90); RDW 15.1 % (11.5-15.5); WBC 6.3 k/uL (3.8-10.6)
[2019-09-14 09:25] LABS: INR 1.1 (<1.2); Partial Thromboplastin Time 22.7 sec (22.0-30.0); Prothrombin Time 11.2 sec (9.0-12.0)
[2019-09-14] MEDS ORDERED: ASPIRIN 81 MG PO STA (09:49)
[2019-09-14 10:18] LABS: Appearance,Urine Clear (Clear); Bilirubin,Urine Negative (Negative); Blood,Urine Negative (Negative); Color,Urine Light Yellow; Glucose,Urine (UA) Negative (Negative); Ketones,Urine Negative (Negative); Leukocyte Esterase,Urine Negative (Negative); Nitrite,Urine Negative (Negative); Protein,Urine Trace (Negative); Specific Gravity,Urine 1.007 (1.001-1.035); Urobilinogen,Urine <2.0 mg/dL (<2.0)
--- NOTE | 2019-09-14 10:24 | XR ---
EXAMINATION TYPE: XR chest 1V portable DATE OF EXAM: 09/14/2019 HISTORY: ams. REFERENCE: Previous study dated 05/23/2019. FINDINGS: The heart is enlarged. There is chronic elevation of the left hemidiaphragm. There is vascu lar congestion. I could not exclude a mild degree of edema. Pleural spaces appear clear. IMPRESSION: I CANNOT EXCLUDE A MILD DEGREE OF HEART FAILURE WITH MILD EDEMA.
[2019-09-14] MEDS ORDERED: LORazepam 2 MG/ML INJ IV STA (10:43)
[2019-09-14] MEDS ORDERED: ASPIRIN 300 MG SUPP RECTAL STA (11:17)
[2019-09-14 11:27] VITALS: BP 177/86; PULSE 59; TEMP 96.7
== END 2019-09-14 11:27 | disposition other institution (70) ==
LOC: EC 08:15
DX: R41.82 Altered mental status, unspecified (principal); I10 Essential (primary) hypertension; G47.30 Sleep apnea, unspecified; M19.90 Unspecified osteoarthritis, unspecified site; F32.9 Major depressive disorder, single episode, unspecified; F41.9 Anxiety disorder, unspecified; Z79.891 Long term (current) use of opiate analgesic; Z79.899 Other long term (current) drug therapy; Z88.8 Allergy status to other drugs, medicaments and biological substances; Z87.891 Personal history of nicotine dependence; Z95.5 Presence of coronary angioplasty implant and graft; Z99.89 Dependence on other enabling machines and devices; Z86.73 Personal history of transient ischemic attack (TIA), and cerebral infarction without residual deficits
CPT/HCPCS: 36415; 93005; 83930; 80053; 82330; 82140; 83605; 83690; 83735; 84443; 84484; 85025; 85610; 85730; 86140; 81003; 83520; 84145; 71045; 70450; 99285; 96374; 96375; 96361; G0480 ×2; J2060; J2310; 80320; 80329

== ENCOUNTER → 2019-11-11 | Outpatient (CLI) | payer MEDICARE ==
[2019-11-11 14:14] LABS: HCT 32.7 % (39.0-53.0); HGB 10.9 gm/dL (13.0-17.5); MCH 28.4 pg (25.0-35.0); MCHC 33.3 g/dL (31.0-37.0); MCV 85.4 fL (80.0-100.0); Platelet Count 147 k/uL (150-450); RBC 3.83 m/uL (4.30-5.90); RDW 15.1 % (11.5-15.5); WBC 6.6 k/uL (3.8-10.6)
[2019-11-11 16:58] LABS: Appearance,Urine Clear (Clear); Bilirubin,Urine Negative (Negative); Blood,Urine Negative (Negative); Color,Urine Light Yellow; Glucose,Urine (UA) Negative (Negative); Hyaline Casts,Urine 1 /lpf (0-2); Ketones,Urine Negative (Negative); Leukocyte Esterase,Urine Negative (Negative); Mucus,Urine Rare /hpf; Nitrite,Urine Negative (Negative); PH, Urine 5.5 (5.0-8.0); Protein,Urine 1+ (Negative); Specific Gravity,Urine 1.009 (1.001-1.035); Squamous Epithelial Cell,Urine <1 /hpf (0-4); Urobilinogen,Urine <2.0 mg/dL (<2.0); WBC,Urine 2 /hpf (0-5)
[2019-11-11 19:07] LABS: % Iron Saturation 14.24 (15.00-50.00); African American GFR (CKD) 32.6 (60.0-200.0); Albumin 4.3 g/dL (3.80-4.90); Albumin/Globulin Ratio 2.26 (1.60-3.17); Anion Gap 8.4 mmol/L (4.00-12.00); BUN/Creat Ratio 10.43 Ratio (12.00-20.00); Calcium 9.2 mg/dL (8.7-10.3); Carbon Dioxide 22.6 mmol/L (21.6-31.8); Globulin 1.9 g/dL (1.6-3.3); Magnesium 1.8 mg/dL (1.5-2.4); Non-African American GFR(CKD) 28.1 (60.0-200.0); Potassium 5.4 mmol/L (3.5-5.5); Total Bilirubin 0.3 mg/dL (0.2-1.2); Total Protein 6.2 g/dL (6.2-8.2); Uric Acid 6.4 mg/dL (3.7-8.7)
[2019-11-11 19:14] LABS: Ferritin 99.4 ng/mL (22.0-322.0)
[2019-11-12 00:18] LABS: Urine Creatinine 59.1 mg/dL
== END | disposition home or self-care (01) ==
LOC: LABWHC1 12:33
PROVIDERS: ATTEND Nurse Practitioner Family
DX: N39.0 Urinary tract infection, site not specified (principal); N25.81 Secondary hyperparathyroidism of renal origin; M10.9 Gout, unspecified; E55.9 Vitamin D deficiency, unspecified; D63.1 Anemia in chronic kidney disease; N18.3 Chronic kidney disease, stage 3 (moderate)
CPT/HCPCS: 36415; 80053; 81001; 82043; 82306; 82570; 82728; 83540; 83550; 83735; 83970; 84100; 84550; 85027

== ENCOUNTER → 2019-11-14 | Outpatient (CLI) | payer MEDICARE ==
--- NOTE | 2019-11-14 15:26 | CT ---
EXAMINATION TYPE: CT abdomen pelvis wo con DATE OF EXAM: 11/14/2019 COMPARISON: 04/20/2019 INDICATION: right flank pain DLP: 1272.3 mGycm, Automated exposure control for dose reduction was used. CONTRAST: 0 mL of Isovue 300. Study performed without Oral Contrast TECHNIQUE: Axial images were obtained from above the diaphragm to the pubic rami in the axial plane a t 5 mm thick sections. Reconstructed images are reviewed on the computer in the coronal plane. FINDINGS: Limited CT sections are obtained the lung bases. The lung bases are clear. Coronary artery calcific ations present. There is elevation left diaphragm. CT ABDOMEN: Liver: Normal Spleen: Normal Pancreas: Normal Adrenal glands: The adrenal glands are normal. Gallbladder: Surgically absent Kidneys: No masses are evident. No hydronephrosis is present. Superior right renal cortical cysts a re present Delayed images were obtained through the kidneys, which remain unremarkable. Aorta: Vascular calcification is within the aorta. Inferior vena cava: Normal. CT PELVIS: Loops of bowel within the abdomen and pelvis are normal. Multiple diverticuli are within the sigmoid colon. No suspicious adjacent inflammatory changes to suggest acute diverticulitis is evident. Baudilio dies performed without oral contrast. Appendix: Not identified. No suspicious inflammatory changes or dilated tubular structures are eviden t. Urinary bladder: Normal. Genitourinary structures: Prostate is somewhat prominent. Osseous structures: There is a right hip pain present. Facet degenerative changes are present. IMPRESSIONS: 1. Diverticulosis without acute diverticulitis. 2. Few superior pole right renal cysts.
== END | disposition home or self-care (01) ==
LOC: RADCTMAIN 08:40
PROVIDERS: ATTEND Family Medicine
DX: N28.1 Cyst of kidney, acquired (principal); K57.90 Diverticulosis of intestine, part unspecified, without perforation or abscess without bleeding; R19.00 Intra-abdominal and pelvic swelling, mass and lump, unspecified site
CPT/HCPCS: 74176

== ENCOUNTER → 2020-01-09 | Outpatient (CLI) | payer MEDICARE ==
[2020-01-09 15:58] LABS: Basophils % (A) 0 %; Eosinophils # (A) 0.3 k/uL (0-0.7); Eosinophils % (A) 4 %; HCT 36.9 % (39.0-53.0); HGB 11.9 gm/dL (13.0-17.5); Lymphocytes # (A) 1.2 k/uL (1.0-4.8); Lymphocytes % (A) 16 %; MCH 28.3 pg (25.0-35.0); MCHC 32.3 g/dL (31.0-37.0); MCV 87.6 fL (80.0-100.0); Mean Platelet Volume 7.8; Monocytes # (A) 0.6 k/uL (0-1.0); Monocytes % (A) 9 %; Neutrophils # (A) 4.9 k/uL (1.3-7.7); Neutrophils % (A) 69 %; Platelet Count 160 k/uL (150-450); RBC 4.21 m/uL (4.30-5.90); RDW 14.5 % (11.5-15.5); WBC 7.2 k/uL (3.8-10.6)
[2020-01-10 01:51] LABS: % Iron Saturation 18.37 (15.00-50.00); African American GFR (CKD) 29.5 (60.0-200.0); Albumin 4.2 g/dL (3.80-4.90); Albumin/Globulin Ratio 2.1 (1.60-3.17); Anion Gap 9.9 mmol/L (4.00-12.00); BUN/Creat Ratio 12.4 Ratio (12.00-20.00); Calcium 8.7 mg/dL (8.7-10.3); Carbon Dioxide 21.1 mmol/L (21.6-31.8); Magnesium 1.8 mg/dL (1.5-2.4); Non-African American GFR(CKD) 25.4 (60.0-200.0); Phosphorus 4.1 mg/dL (2.4-5.1); Potassium 5.1 mmol/L (3.5-5.5); Total Bilirubin 0.3 mg/dL (0.2-1.2); Total Protein 6.2 g/dL (6.2-8.2)
[2020-01-10 02:00] LABS: Ferritin 70.4 ng/mL (22.0-322.0)
== END | disposition home or self-care (01) ==
LOC: LABWHC1 13:52
PROVIDERS: ATTEND Internal Medicine
DX: N18.30 Chronic kidney disease, stage 3 unspecified (principal)
CPT/HCPCS: 36415; 80053; 82306; 82728; 83540; 83550; 83735; 83970; 84100; 84550; 85025

== ENCOUNTER 2020-01-27 06:45 | Day surgery (SDC) | payer MEDICARE ==
[2020-01-26 09:39] VITALS: BMI 37.6
[2020-01-27 07:20] VITALS: RESP 16; TEMP 97
[2020-01-27 07:21] LABS: Glucose,Whole Blood 129 mg/dL (75-99)
[2020-01-27] MEDS ORDERED: PROPOFOL 10 MG/ML 20 ML VIAL IV ONE (07:33)
--- NOTE | 2020-01-27 08:25 | P.PCN ---
Date of Procedure: 01/27/20 Description of Procedure: BRIEF HISTORY: Patient is a 69-year-old male presenting for outpatient colonoscopy for change in bowel habits. The patient had previously been seen for colonoscopy which was incomplete due to poor prep. He was seen in the GI clinic complaining of abdominal pain and alternating diarrhea and constipation. He follows up for colonoscopy. PROCEDURE PERFORMED: Colonoscopy with polypectomy and biopsy. PREOPERATIVE DIAGNOSIS: Change in bowel habits, abdominal pain. ESTIMATED BLOOD LOSS: Minimal. IV sedation per Anesthesia. PROCEDURE: After informed consent was obtained, the patient, was brought into the endoscopy unit. IV sedation was administered by Anesthesia under continuous monitoring. Digital rectal examination was normal. Initially the Olympus CF-190 flexible video colonoscope was then inserted in the rectum, gradually advanced into the cecum without any difficulty. Careful examination was performed as the scope was gradually being withdrawn. Ileocecal valve and the appendiceal orifice were visualized and appeared normal. Prep was poor with liquid and solid stool throughout the entire examined colon. Mucosa of the cecum, ascending colon, transverse colon, descending colon, sigmoid colon, and rectum which was able to be visualized did appear normal, however complete visualization of the mucosa prohibited by poor prep. Polyps measuring 3 mm in the cecum and ascending colon removed with cold snare polypectomy. Random biopsies taken of the right and left colon. Retroflexion was performed in the rectum and no lesions were seen. The patient tolerated the procedure well. IMPRESSION: Small polyps removed from the cecum and ascending colon with cold snare polypectomy. Moderate left colonic diverticulosis. Random biopsies taken of the right and left colon due to change in bowel habits. Normal-appearing tissue from cecum to rectum, however complete visualization of the mucosa prohibited by poor prep. RECOMMENDATIONS: Findings of this examination were discussed with the patient and his family. Okay to resume diet. Okay to resume medications. Await pathology from biopsies. Follow up in the GI clinic as scheduled. Continue dietary modifications and trial of medications as instructed in the GI clinic. Repeat colonoscopy in 3 years for screening given poor prep and history of polyps.
[2020-01-27 08:33] VITALS: BP 190/92; PULSE 65
== END 2020-01-27 09:37 | disposition home or self-care (01) ==
LOC: ORWHC2ENDO 06:45
PROVIDERS: ATTEND Internal Medicine
DX: D12.2 Benign neoplasm of ascending colon (principal); K63.5 Polyp of colon; K57.30 Diverticulosis of large intestine without perforation or abscess without bleeding; I10 Essential (primary) hypertension; G47.33 Obstructive sleep apnea (adult) (pediatric); J44.9 Chronic obstructive pulmonary disease, unspecified; E11.9 Type 2 diabetes mellitus without complications; M19.90 Unspecified osteoarthritis, unspecified site; Z99.89 Dependence on other enabling machines and devices; Z88.1 Allergy status to other antibiotic agents; Z86.73 Personal history of transient ischemic attack (TIA), and cerebral infarction without residual deficits; Z79.02 Long term (current) use of antithrombotics/antiplatelets; Z79.899 Other long term (current) drug therapy; Z87.891 Personal history of nicotine dependence; Z90.49 Acquired absence of other specified parts of digestive tract; Z98.890 Other specified postprocedural states
CPT/HCPCS: 88305; 45380; 45385; J2704

== ENCOUNTER 2020-02-04 17:50 | Emergency (ER) | payer MEDICARE ==
[2020-02-04 17:58] VITALS: BP 145/89; PULSE 73; RESP 16; TEMP 98.4
[2020-02-04] MEDS ORDERED: HYDROmorphone 0.5 MG/0.5 ML SYRINGE IM STA (19:09)
--- NOTE | 2020-02-04 19:42 | ED ---
General Adult HPI - General Chief complaint: Abdominal Pain Stated complaint: abd pain Time Seen by Provider: 02/04/20 18:51 Source: patient, RN notes reviewed Mode of arrival: ambulatory Limitations: no limitations - History of Present Illness Initial comments: 69-year-old male with a past medical history of COPD, CVA, diabetes mellitus, GERD, hypertension, chronic stomach pain for 4 months presents to the emergency department for a chief complaint of abdominal pain. Patient reports he has had this abdominal pain for 4 months. Patient reports he has had a complete outpatient workup including CAT scan, MRI, complete abdominal ultrasound, colonoscopy. He reports they only found a small amount of diverticulosis. Patient was seen at [facility] earlier this month and it was recommended he continue to follow-up with his own doctor and return in one month. I did review patient's colonoscopy note which showed small polyps and diverticulosis previous computed tomography scan also revealed the reticulosis. Patient reports he has not had any fevers. Patient is here because he would like pain medication as his at home pain medications are no longer working. Patient does take tramadol at home.Patient has no other complaints at this time including shortness of breath, chest pain, nausea or vomiting, headache, or visual changes. - Related Data Home Medications Medication Instructions Recorded Confirmed amLODIPine BESYLATE [Amlodipine 10 mg PO QAM 10/26/15 01/27/20 Besylate] Gabapentin 600 mg PO TID 10/25/18 01/27/20 Losartan Potassium 25 mg PO QAM 09/14/19 01/27/20 Carvedilol [Coreg] 25 mg PO BID 01/26/20 01/27/20 Ergocalciferol (Vitamin D2) 1,250 mcg PO BID 01/26/20 01/27/20 [Vitamin D2] Ferrous Sulfate [Feosol] 325 mg PO DAILY 01/26/20 01/27/20 Glimepiride [Amaryl] 1 mg PO DAILY 01/26/20 01/27/20 levETIRAcetam [Keppra] 500 mg PO Q12HR 01/26/20 01/27/20 lisinopriL [Zestril] 40 mg PO QAM 01/26/20 01/27/20 Previous Rx's Medication Instructions Recorded Dicyclomine [Bentyl] 20 mg PO TID PRN #20 tablet 02/04/20 Allergies Allergy/AdvReac Type Severity Reaction Status Date / Time neomycin Allergy Itching Verified 02/04/20 17:58 Review of Systems ROS Statement: Those systems with pertinent positive or pertinent negative responses have been documented in the HPI. ROS Other: All systems not noted in ROS Statement are negative. Past Medical History Past Medical History: COPD, CVA/TIA, Diabetes Mellitus, GERD/Reflux, Hypertension, Osteoarthritis (OA), Sleep Apnea/CPAP/BIPAP Additional Past Medical History / Comment(s): having "stomach pain for 4 months",has cpap, TIA years ago, on 05-23-19 episode of confusion,slurred speech,tremors, combative @home, brought by EMS to , transferred to [facility], there for 6 days & never found anything per spouse-symptoms gone History of Any Multi-Drug Resistant Organisms: None Reported Past Surgical History: Cholecystectomy, Heart Catheterization With Stent, Hernia Repair, Orthopedic Surgery Additional Past Surgical History / Comment(s): heart stents x 3,carpal tunnel, left carotid endarterectomy, RIGHT HIP with pin, rt shoulder, umbilical hernia, CTS shayna x2 Past Anesthesia/Blood Transfusion Reactions: No Reported Reaction Date of Last Stent Placement:: 12-10-17 Past Psychological History: Anxiety, Depression Smoking Status: Former smoker Past Alcohol Use History: None Reported Past Drug Use History: None Reported - Past Family History Mother Family Medical History: Cancer General Exam Limitations: no limitations General appearance: alert, in no apparent distress Head exam: Present: atraumatic, normocephalic, normal inspection Eye exam: Present: normal appearance, PERRL, EOMI. Absent: scleral icterus, conjunctival injection, periorbital swelling ENT exam: Present: normal exam, mucous membranes moist Neck exam: Present: normal inspection, full ROM. Absent: tenderness, meningismus, lymphadenopathy Respiratory exam: Present: normal lung sounds bilaterally. Absent: respiratory distress, wheezes, rales, rhonchi, stridor Cardiovascular Exam: Present: regular rate, normal rhythm, normal heart sounds. Absent: systolic murmur, diastolic murmur, rubs, gallop, clicks GI/Abdominal exam: Present: soft, tenderness (Minimal generalized abdominal tenderness), normal bowel sounds. Absent: distended, guarding, rebound, rigid Back exam: Absent: CVA tenderness (R), CVA tenderness (L) Neurological exam: Present: alert Course Vital Signs 02/04/20 17:56 Temperature 98.4 F Pulse Rate 73 Respiratory 16 Rate Blood Pressure 145/89 O2 Sat by Pulse 97 Oximetry Medical Decision Making - Medical Decision Making Vitals are stable. Patient is afebrile. Denies fevers at home. Physical exam reveals mild generalized abdominal tenderness without any point tenderness. Patient states he has already been completely worked up for this and refuses further workup. He refuses IV, blood work, CAT scan. Patient is aware that I cannot evaluate the cause of his pain at this time without doing these evaluations. He just wants pain medication. He prefers IM over IV as he does not want to have to start an IV. He also takes tramadol at home and is asking for medication to help him get through until Sunday to his primary care doctor. I did discuss that we could try to add Bentyl to his regimen which she is agreeable to. If patient has worsening symptoms or fevers he will return to the emergency room. Disposition Clinical Impression: Chronic abdominal pain Disposition: HOME SELF-CARE Condition: Good Instructions (If sedation given, give patient instructions): Abdominal Pain (ED) Additional Instructions: Please follow up with your doctor on Sunday. If you have worsening symptoms return to the emergency room. Prescriptions: Dicyclomine [Bentyl] 20 mg PO TID PRN #20 tablet PRN Reason: abdominal pain Is patient prescribed a controlled substance at d/c from ED?: No Referrals: Elena Rodriguez DO [Primary Care Provider] - 1-2 days Time of Disposition: 19:41
== END 2020-02-04 19:51 | disposition home or self-care (01) ==
LOC: EC 17:50
DX: R10.817 Generalized abdominal tenderness (principal); G89.29 Other chronic pain; E11.9 Type 2 diabetes mellitus without complications; I10 Essential (primary) hypertension; G47.33 Obstructive sleep apnea (adult) (pediatric); Z79.84 Long term (current) use of oral hypoglycemic drugs; Z79.899 Other long term (current) drug therapy; Z99.89 Dependence on other enabling machines and devices; Z86.73 Personal history of transient ischemic attack (TIA), and cerebral infarction without residual deficits; Z87.891 Personal history of nicotine dependence; Z95.5 Presence of coronary angioplasty implant and graft; Z88.8 Allergy status to other drugs, medicaments and biological substances
CPT/HCPCS: 99283 ×2; 96372 ×2; J1170

== ENCOUNTER 2020-05-15 12:18 | Inpatient (IN) | payer MEDICARE ==
[2020-05-15] MEDS ORDERED: SODIUM CHLORIDE 0.9% 500 ML 500 ML IV ONE (12:49)
--- NOTE | 2020-05-15 13:00 | ED ---
General Adult HPI - General Chief complaint: Recheck/Abnormal Lab/Rx Stated complaint: SOB/Chills/Abd pain/weak Time Seen by Provider: 05/15/20 12:32 Source: family Mode of arrival: wheelchair Limitations: physical limitation - History of Present Illness Initial comments: Patient is a 70-year-old male with past medical history of chronic kidney disease, hypertension, diabetes, COPD on 3 L at night who presents emergency Department with reported altered mental status. is at bedside and helps provide the history. Reports that for the past 3 days the patient has had hallucinations. Making comments that there are "chickens walking across the [place]". States that he's been very unsteady on his feet did have a fall yesterday where he fell and hit his head. Denies any loss of consciousness. Patient admits to chills, mild productive cough and shortness of breath. Also admits to anterior chest pain. Patient has previous history of cardiac disease with stent placement. Patient recently on an antibiotic for his "stomach". states he only took 2 tablets and then stopped. Triage note states that the patient has had a UTI however and patient deny this. She denies headache or visual changes. No neck or back pain. No numbness, tingling or weakness in his external days. No contact with patient's positive with covid. No other alleviating, precipitating or modifying factors - Related Data Home Medications Medication Instructions Recorded Confirmed amLODIPine BESYLATE [Amlodipine 10 mg PO DAILY 10/26/15 05/15/20 Besylate] Gabapentin 600 mg PO BID 10/25/18 05/15/20 Losartan Potassium 25 mg PO DAILY 09/14/19 05/15/20 Carvedilol [Coreg] 25 mg PO BID 01/26/20 05/15/20 Ferrous Sulfate [Feosol] 325 mg PO DAILY 01/26/20 05/15/20 Glimepiride [Amaryl] 1 mg PO DAILY 01/26/20 05/15/20 Citalopram Hydrobromide [CeleXA] 40 mg PO DAILY 05/15/20 05/15/20 levETIRAcetam [Keppra] 750 mg PO BID 05/15/20 05/15/20 traMADol HCL 50 mg PO QID 05/15/20 05/15/20 Previous Rx's Medication Instructions Recorded Dicyclomine [Bentyl] 20 mg PO TID PRN #20 tablet 02/04/20 Allergies Allergy/AdvReac Type Severity Reaction Status Date / Time neomycin Allergy Itching Verified 05/15/20 15:55 Review of Systems ROS Statement: Those systems with pertinent positive or pertinent negative responses have been documented in the HPI. ROS Other: All systems not noted in ROS Statement are negative. Past Medical History Past Medical History: COPD, CVA/TIA, Diabetes Mellitus, GERD/Reflux, Hypertension, Osteoarthritis (OA), Sleep Apnea/CPAP/BIPAP Additional Past Medical History / Comment(s): having "stomach pain for 4 months",has cpap, TIA years ago, on 05-23-19 episode of confusion,slurred speech,tremors, oxygen use History of Any Multi-Drug Resistant Organisms: None Reported Past Surgical History: Cholecystectomy, Heart Catheterization With Stent, Hernia Repair, Orthopedic Surgery Additional Past Surgical History / Comment(s): heart stents x 3,carpal tunnel, left carotid endarterectomy, RIGHT HIP with pin, rt shoulder, umbilical hernia, CTS shayna x2 Past Anesthesia/Blood Transfusion Reactions: No Reported Reaction Date of Last Stent Placement:: 12-10-17 Past Psychological History: Anxiety, Depression Smoking Status: Former smoker Past Alcohol Use History: None Reported Past Drug Use History: None Reported - Past Family History Mother Family Medical History: Cancer General Exam Limitations: physical limitation General appearance: alert, in no apparent distress, obese Head exam: Present: atraumatic, normocephalic, normal inspection Eye exam: Present: normal appearance, PERRL, EOMI. Absent: scleral icterus, conjunctival injection, periorbital swelling ENT exam: Present: mucous membranes dry Neck exam: Present: normal inspection. Absent: tenderness, meningismus, lymphadenopathy Respiratory exam: Present: decreased breath sounds, other (tachypnia, poor inspiratory effort) Cardiovascular Exam: Present: regular rate, normal rhythm, normal heart sounds. Absent: systolic murmur, diastolic murmur, rubs, gallop, clicks GI/Abdominal exam: Present: soft, normal bowel sounds. Absent: distended, tenderness, guarding, rebound, rigid Extremities exam: Present: normal inspection, full ROM, normal capillary refill. Absent: tenderness, pedal edema, joint swelling, calf tenderness Skin exam: Present: warm, dry, intact, normal color. Absent: rash Course Vital Signs 05/15/20 05/15/20 05/15/20 12:25 14:39 15:47 Temperature 97.7 F Pulse Rate 72 86 81 Respiratory 20 18 20 Rate Blood Pressure 149/78 148/116 O2 Sat by Pulse 90 L 90 L Oximetry 05/15/20 05/15/20 16:00 16:01 Temperature Pulse Rate 85 79 Respiratory 18 20 Rate Blood Pressure 153/77 O2 Sat by Pulse 91 L Oximetry EKG Findings - EKG Comments: EKG Findings:: EKG demonstrates normal sinus rhythm with ventricular rate of 68. TN interval 148. QRS 88. QTC 418. No acute ST segment elevations or depressions Medical Decision Making - Medical Decision Making The patient is placed in room 24. A thorough history and physical exam is performed. IV is established. Patient was given a 500 bolus of normal saline. Laboratory studies are conducted. Patient went for a CT of his brain and a chest x-ray. Brain CT demonstrates mild cerebral atrophy with no acute intracranial abnormality. Chest x-ray demonstrates pleural reaction at the lung bases atelectasis. No obvious heart failure. Review of the laboratory studies demonstrate a potassium of 6.6. Patient given 15 mg albuterol, 1 amp dextrose, 10 units iv insulin, 1 amp bicarb and kayexalate. Nephrotoxic meds helds. VBG shows a pH of 7.28. Bicarb of 21. Patient has a creatinine of 2.7. Patient unable to urinate in the emergency department and therefore Wood is placed with return of 400 mL of urine. UDS is positive for marijuana for which the adm its the patient does use. Covid negative. Did recommend hospitalization for chest pain, hyperkalemia, hallucinations and altered mental status. We'll consult nephrology and cardiology. V/Q scan ordered as of the patient's hypoxia and chest pain. I spoke with Dr. Miramontes who agreed to admit the patient. Patient remained in stable condition awaiting a bed - Lab Data Result diagrams: 05/16/20 03:16 05/18/20 07:02 Lab Results 05/15/20 05/15/20 05/15/20 Range/Units 12:51 13:16 13:31 WBC 7.9 (3.8-10.6) k/uL RBC 3.67 L (4.30-5.90) m/uL Hgb 10.7 L (13.0-17.5) gm/dL Hct 31.7 L (39.0-53.0) % MCV 86.4 (80.0-100.0) fL MCH 29.1 (25.0-35.0) pg MCHC 33.7 (31.0-37.0) g/dL RDW 14.5 (11.5-15.5) % Plt Count 132 L (150-450) k/uL MPV 8.7 Neutrophils % 84 % Lymphocytes % 7 % Monocytes % 6 % Eosinophils % 2 % Basophils % 0 % Neutrophils # 6.6 (1.3-7.7) k/uL Lymphocytes # 0.6 L (1.0-4.8) k/uL Monocytes # 0.5 (0-1.0) k/uL Eosinophils # 0.1 (0-0.7) k/uL Basophils # 0.0 (0-0.2) k/uL PT (9.0-12.0) sec INR (<1.2) APTT (22.0-30.0) sec VBG pH 7.28 L (7.31-7.41) VBG pCO2 46 (37-51) mmHg VBG HCO3 21 L (24-28) mmol/L Sodium (137-145) mmol/L Potassium (3.5-5.1) mmol/L Chloride (98-107) mmol/L Carbon Dioxide (22-30) mmol/L Anion Gap mmol/L BUN (9-20) mg/dL Creatinine (0.66-1.25) mg/dL Est GFR (CKD-EPI)AfAm (>60 ml/min/1.73 sqM) Est GFR (CKD-EPI)NonAf (>60 ml/min/1.73 sqM) Glucose (74-99) mg/dL Plasma Lactic Acid Efrain (0.7-2.0) mmol/L Calcium (8.4-10.2) mg/dL Total Bilirubin (0.2-1.3) mg/dL AST (17-59) U/L ALT (4-49) U/L Alkaline Phosphatase (38-126) U/L Ammonia (<30) umol/L Creatine Kinase (55-170) U/L Troponin I (0.000-0.034) ng/mL Total Protein (6.3-8.2) g/dL Albumin (3.5-5.0) g/dL TSH (0.465-4.680) mIU/L Urine Color Urine Appearance (Clear) Urine pH (5.0-8.0) Ur Specific Hay (1.001-1.035) Urine Protein (Negative) Urine Glucose (UA) (Negative) Urine Ketones (Negative) Urine Blood (Negative) Urine Nitrite (Negative) Urine Bilirubin (Negative) Urine Urobilinogen (<2.0) mg/dL Ur Leukocyte Esterase (Negative) Urine RBC (0-5) /hpf Urine WBC (0-5) /hpf Salicylates mg/dL Urine Opiates Screen (NotDetected) Ur Oxycodone Screen (NotDetected) Urine Methadone Screen (NotDetected) Ur Propoxyphene Screen (NotDetected) Acetaminophen ug/mL Ur Barbiturates Screen (NotDetected) U Tricyclic Antidepress (NotDetected) Ur Phencyclidine Scrn (NotDetected) Ur Amphetamines Screen (NotDetected) U Methamphetamines Scrn (NotDetected) U Benzodiazepines Scrn (NotDetected) Urine Cocaine Screen (NotDetected) U Marijuana (THC) Screen (NotDetected) Serum Alcohol mg/dL Coronavirus (PCR) Not Detected (Not Detectd) 05/15/20 05/15/20 05/15/20 Range/Units 13:31 13:31 13:31 WBC (3.8-10.6) k/uL RBC (4.30-5.90) m/uL Hgb (13.0-17.5) gm/dL Hct (39.0-53.0) % MCV (80.0-100.0) fL MCH (25.0-35.0) pg MCHC (31.0-37.0) g/dL RDW (11.5-15.5) % Plt Count (150-450) k/uL MPV Neutrophils % % Lymphocytes % % Monocytes % % Eosinophils % % Basophils % % Neutrophils # (1.3-7.7) k/uL Lymphocytes # (1.0-4.8) k/uL Monocytes # (0-1.0) k/uL Eosinophils # (0-0.7) k/uL Basophils # (0-0.2) k/uL PT (9.0-12.0) sec INR (<1.2) APTT (22.0-30.0) sec VBG pH (7.31-7.41) VBG pCO2 (37-51) mmHg VBG HCO3 (24-28) mmol/L Sodium 134 L (137-145) mmol/L Potassium 6.6 H* (3.5-5.1) mmol/L Chloride 103 (98-107) mmol/L Carbon Dioxide 23 (22-30) mmol/L Anion Gap 8 mmol/L BUN 48 H (9-20) mg/dL Creatinine 2.77 H (0.66-1.25) mg/dL Est GFR (CKD-EPI)AfAm 26 (>60 ml/min/1.73 sqM) Est GFR (CKD-EPI)NonAf 22 (>60 ml/min/1.73 sqM) Glucose 154 H (74-99) mg/dL Plasma Lactic Acid Efrain 0.6 L (0.7-2.0) mmol/L Calcium 8.5 (8.4-10.2) mg/dL Total Bilirubin 0.6 (0.2-1.3) mg/dL AST 20 (17-59) U/L ALT 10 (4-49) U/L Alkaline Phosphatase 73 (38-126) U/L Ammonia <9 (<30) umol/L Creatine Kinase 184 H (55-170) U/L Troponin I <0.012 (0.000-0.034) ng/mL Total Protein 6.7 (6.3-8.2) g/dL Albumin 4.2 (3.5-5.0) g/dL TSH 4.090 (0.465-4.680) mIU/L Urine Color Urine Appearance (Clear) Urine pH (5.0-8.0) Ur Specific Hay (1.001-1.035) Urine Protein (Negative) Urine Glucose (UA) (Negative) Urine Ketones (Negative) Urine Blood (Negative) Urine Nitrite (Negative) Urine Bilirubin (Negative) Urine Urobilinogen (<2.0) mg/dL Ur Leukocyte Esterase (Negative) Urine RBC (0-5) /hpf Urine WBC (0-5) /hpf Salicylates 1.6 mg/dL Urine Opiates Screen (NotDetected) Ur Oxycodone Screen (NotDetected) Urine Methadone Screen (NotDetected) Ur Propoxyphene Screen (NotDetected) Acetaminophen 10.1 ug/mL Ur Barbiturates Screen (NotDetected) U Tricyclic Antidepress (NotDetected) Ur Phencyclidine Scrn (NotDetected) Ur Amphetamines Screen (NotDetected) U Methamphetamines Scrn (NotDetected) U Benzodiazepines Scrn (NotDetected) Urine Cocaine Screen (NotDetected) U Marijuana (THC) Screen (NotDetected) Serum Alcohol <10 mg/dL Coronavirus (PCR) (Not Detectd) 05/15/20 05/15/20 Range/Units 13:47 14:04 WBC (3.8-10.6) k/uL RBC (4.30-5.90) m/uL Hgb (13.0-17.5) gm/dL Hct (39.0-53.0) % MCV (80.0-100.0) fL MCH (25.0-35.0) pg MCHC (31.0-37.0) g/dL RDW (11.5-15.5) % Plt Count (150-450) k/uL MPV Neutrophils % % Lymphocytes % % Monocytes % % Eosinophils % % Basophils % % Neutrophils # (1.3-7.7) k/uL Lymphocytes # (1.0-4.8) k/uL Monocytes # (0-1.0) k/uL Eosinophils # (0-0.7) k/uL Basophils # (0-0.2) k/uL PT 12.6 H (9.0-12.0) sec INR 1.2 H (<1.2) APTT 21.0 L (22.0-30.0) sec VBG pH (7.31-7.41) VBG pCO2 (37-51) mmHg VBG HCO3 (24-28) mmol/L Sodium (137-145) mmol/L Potassium (3.5-5.1) mmol/L Chloride (98-107) mmol/L Carbon Dioxide (22-30) mmol/L Anion Gap mmol/L BUN (9-20) mg/dL Creatinine (0.66-1.25) mg/dL Est GFR (CKD-EPI)AfAm (>60 ml/min/1.73 sqM) Est GFR (CKD-EPI)NonAf (>60 ml/min/1.73 sqM) Glucose (74-99) mg/dL Plasma Lactic Acid Efrain (0.7-2.0) mmol/L Calcium (8.4-10.2) mg/dL Total Bilirubin (0.2-1.3) mg/dL AST (17-59) U/L ALT (4-49) U/L Alkaline Phosphatase (38-126) U/L Ammonia (<30) umol/L Creatine Kinase (55-170) U/L Troponin I (0.000-0.034) ng/mL Total Protein (6.3-8.2) g/dL Albumin (3.5-5.0) g/dL TSH (0.465-4.680) mIU/L Urine Color Light Yellow Urine Appearance Clear (Clear) Urine pH 5.5 (5.0-8.0) Ur Specific Hay 1.017 (1.001-1.035) Urine Protein 2+ H (Negative) Urine Glucose (UA) Negative (Negative) Urine Ketones Trace H (Negative) Urine Blood Trace H (Negative) Urine Nitrite Negative (Negative) Urine Bilirubin Negative (Negative) Urine Urobilinogen <2.0 (<2.0) mg/dL Ur Leukocyte Esterase Negative (Negative) Urine RBC 1 (0-5) /hpf Urine WBC 1 (0-5) /hpf Salicylates mg/dL Urine Opiates Screen Not Detected (NotDetected) Ur Oxycodone Screen Not Detected (NotDetected) Urine Methadone Screen Not Detected (NotDetected) Ur Propoxyphene Screen Not Detected (NotDetected) Acetaminophen ug/mL Ur Barbiturates Screen Not Detected (NotDetected) U Tricyclic Antidepress Not Detected (NotDetected) Ur Phencyclidine Scrn Not Detected (NotDetected) Ur Amphetamines Screen Not Detected (NotDetected) U Methamphetamines Scrn Not Detected (NotDetected) U Benzodiazepines Scrn Not Detected (NotDetected) Urine Cocaine Screen Not Detected (NotDetected) U Marijuana (THC) Screen Detected H (NotDetected) Serum Alcohol mg/dL Coronavirus (PCR) (Not Detectd) Disposition Clinical Impression: Chronic renal failure, Hyperkalemia, Tetrahydrocannabinol (THC) use disorder, mild, abuse, COPD (chronic obstructive pulmonary disease) Disposition: ADMITTED IP TO THIS HOSP Condition: Serious Is patient prescribed a controlled substance at d/c from ED?: No Decision to Admit Reason: Admit from EC Decision Date: 05/15/20 Decision Time: 15:37
[2020-05-15 13:48] LABS: VBG PH 7.28 (7.31-7.41)
[2020-05-15 13:49] LABS: Basophils % (A) 0 %; Eosinophils # (A) 0.1 k/uL (0-0.7); Eosinophils % (A) 2 %; HCT 31.7 % (39.0-53.0); HGB 10.7 gm/dL (13.0-17.5); Lymphocytes # (A) 0.6 k/uL (1.0-4.8); Lymphocytes % (A) 7 %; MCH 29.1 pg (25.0-35.0); MCHC 33.7 g/dL (31.0-37.0); MCV 86.4 fL (80.0-100.0); Mean Platelet Volume 8.7; Monocytes # (A) 0.5 k/uL (0-1.0); Monocytes % (A) 6 %; Neutrophils # (A) 6.6 k/uL (1.3-7.7); Neutrophils % (A) 84 %; Platelet Count 132 k/uL (150-450); RBC 3.67 m/uL (4.30-5.90); RDW 14.5 % (11.5-15.5); WBC 7.9 k/uL (3.8-10.6)
[2020-05-15 13:57] LABS: Lactic Acid, Venous 0.6 mmol/L (0.7-2.0)
[2020-05-15 14:00] LABS: ALT 10 U/L (4-49); AST 20 U/L (17-59); Acetaminophen 10.1 ug/mL; African American GFR (CKD) 26 (>60 ml/min/1.73 sqM); Albumin 4.2 g/dL (3.5-5.0); Alcohol <10 mg/dL; Alkaline Phosphatase 73 U/L (38-126); Anion Gap 8 mmol/L; Blood Urea Nitrogen 48 mg/dL (9-20); Calcium 8.5 mg/dL (8.4-10.2); Carbon Dioxide 23 mmol/L (22-30); Chloride 103 mmol/L (98-107); Creatine Kinase 184 U/L (55-170); Glucose 154 mg/dL (74-99); Non-African American GFR(CKD) 22 (>60 ml/min/1.73 sqM); Salicylate 1.6 mg/dL; Sodium 134 mmol/L (137-145); Total Bilirubin 0.6 mg/dL (0.2-1.3); Total Protein 6.7 g/dL (6.3-8.2)
[2020-05-15 14:03] LABS: Potassium 6.6 mmol/L (3.5-5.1)
[2020-05-15] MEDS ORDERED: DEXTROSE 50% SYRINGE 50 ML IVP STA ×2 (14:17→20:21)
[2020-05-15] MEDS ORDERED: INSULIN REGULAR 100 UNIT/ML VIAL IV ONE (14:17)
[2020-05-15] MEDS ORDERED: ALBUTEROL NEBULIZED 2.5 MG/3 ML INHALATION STA (14:18)
[2020-05-15] MEDS ORDERED: SODIUM BICARB 8.4% 50 ML SYR (1 MEQ/ML) IV STA ×3 (14:19→20:22)
[2020-05-15 14:27] LABS: INR 1.2 (<1.2); Prothrombin Time 12.6 sec (9.0-12.0)
[2020-05-15] MEDS ORDERED: MORPHINE SULFATE 4 MG/ML SYRINGE IVP STA (14:45)
--- NOTE | 2020-05-15 14:58 | XR ---
EXAMINATION TYPE: XR chest 2V DATE OF EXAM: 05/15/2020 COMPARISON: NONE HISTORY: 09/14/2019 TECHNIQUE: 2 views FINDINGS: Heart is enlarged. There is no gross heart failure. There is poor inspiration. There is miryam e elevation of the left diaphragm. There is slight blunting of the costophrenic angles. IMPRESSION: Pleural reaction at the lung bases with atelectasis. No obvious heart failure. Chest appe ars slightly worse than old exam.
[2020-05-15 15:00] LABS: Appearance,Urine Clear (Clear); Bilirubin,Urine Negative (Negative); Blood,Urine Trace (Negative); Color,Urine Light Yellow; Glucose,Urine (UA) Negative (Negative); Ketones,Urine Trace (Negative); Leukocyte Esterase,Urine Negative (Negative); Nitrite,Urine Negative (Negative); PH, Urine 5.5 (5.0-8.0); Protein,Urine 2+ (Negative); RBC,Urine 1 /hpf (0-5); Specific Gravity,Urine 1.017 (1.001-1.035); Urobilinogen,Urine <2.0 mg/dL (<2.0); WBC,Urine 1 /hpf (0-5)
[2020-05-15 15:05] LABS: Amphetamine Screen,Urine Not Detected (NotDetected); Barbiturate Screen,Urine Not Detected (NotDetected); Benzodiazepines Screen,Urine Not Detected (NotDetected); Cocaine Screen,Urine Not Detected (NotDetected); Methadone Screen, Urine Not Detected (NotDetected); Opiate Screen,Urine Not Detected (NotDetected); Oxycodone Screen, Urine Not Detected (NotDetected); Phencyclidine Screen,Urine Not Detected (NotDetected); Tricyclic Antidepressant,Urine Not Detected (NotDetected); Urn Cannabinoid Scrn Detected (NotDetected)
[2020-05-15] MEDS ORDERED: SODIUM POLYSTYRENE SULFONATE 15 GM/60 ML BOTTLE PO STA (15:05)
--- NOTE | 2020-05-15 15:33 | CT ---
EXAMINATION TYPE: CT brain carolina gutierrez con DATE OF EXAM: 05/15/2020 COMPARISON: 09/14/2019 CT brain HISTORY: Fall. Injury to top of head. CT DLP: 1650.3 mGycm Automated exposure control for dose reduction was used. There is mild cerebral atrophy. There is no mass effect nor midline shift. There is no sign of intrac ranial hemorrhage. The calvarium is intact. There is mucosal thickening in the left maxillary sinus. Cervical vertebra have normal alignment. There is degenerative disc space narrowing throughout the ce rvical spine with spur formation. There is no compression fracture. Facet joints are intact. There is hypertrophic mild multilevel facet arthropathy. The skull base is intact. IMPRESSION: Multilevel cervical spondylotic changes. There is probably some spinal stenosis at C5-6 due to spur f ormation. No fracture. Mild cerebral atrophy. No acute intracranial abnormality. Left maxillary sinusitis. Brain unchanged c ompared to old exam.
[2020-05-15] MEDS ORDERED: NALOXONE 0.4 MG/ML 1 ML VIAL IV PRN (15:37)
[2020-05-15] MEDS ORDERED: CALCIUM GLUCONATE 1 GM in SODIUM CHLORIDE 0.9% 100 ML IVPB ONE (18:00)
--- NOTE | 2020-05-15 18:09 | NM ---
EXAMINATION TYPE: NM pul vent and perfuse DATE OF EXAM: 05/15/2020 COMPARISON: NONE HISTORY: TECHNIQUE: Utilizing inhalation of 65.7 mCi Tc 99m DTPA aerosol and intravenous injection of 4.97 mC i of Tc 99m MAA, ventilation and perfusion images are acquired post injection in multiple projections . FINDINGS: There is matching mild decreased activity in the anterior right middle lobe and anterior right upper lobe. This corresponds to atelectasis seen on the chest x-ray today. There is fairly normal perfusion of the lung bases. The ventilation abnormalities appear larger than the perfusion abnormalities.. IMPRESSION: There is low probability of pulmonary embolism. There is evidence of bilateral airway disease.
[2020-05-15] MEDS: ACETAMINOPHEN TAB 325 MG TAB PO PRN (18:58)
[2020-05-15 20:03] LABS: Glucose,Whole Blood 211 mg/dL (75-99)
[2020-05-15] MEDS: GABAPENTIN 300 MG CAP PO SCH (20:10)
[2020-05-15] MEDS: carvediloL 12.5 MG TAB PO SCH (20:10)
[2020-05-15] MEDS: INSULIN ASPART (NovoLOG) 100 UNIT/ML VIAL SQ SCH (20:17)
[2020-05-15] MEDS ORDERED: CALCIUM GLUCONATE 1 GM in SODIUM CHLORIDE 0.9% 100 ML IVPB STA (20:19)
[2020-05-15] MEDS ORDERED: INSULIN REGULAR 100 UNIT/ML VIAL IV STA (20:20)
[2020-05-15] MEDS ORDERED: FUROSEMIDE 10 MG/ML 2 ML VIAL IV STA (20:22)
[2020-05-16] MEDS: ACETAMINOPHEN TAB 325 MG TAB PO PRN ×2 (00:13→14:11)
[2020-05-16 02:26] LABS: Glucose,Whole Blood 173 mg/dL (75-99)
[2020-05-16 02:43] LABS: ABG HCO3 25 mmol/L (21-25); ABG Oxygen Saturation 95.9 % (94-97); ABG PCO2 64 mmHg (35-45); ABG PO2 91 mmHg (83-108); ABG TCO2 27 mmol/L (19-24); Allen Test Performed? Yes
[2020-05-16 02:50] LABS: Basophils # (A) 0.1 k/uL (0-0.2); Basophils % (A) 0 %; Eosinophils # (A) 0.3 k/uL (0-0.7); Eosinophils % (A) 3 %; HCT 29.3 % (39.0-53.0); HGB 9.9 gm/dL (13.0-17.5); Lymphocytes # (A) 0.4 k/uL (1.0-4.8); Lymphocytes % (A) 4 %; MCH 29.1 pg (25.0-35.0); MCHC 33.6 g/dL (31.0-37.0); MCV 86.4 fL (80.0-100.0); Mean Platelet Volume 8.5; Monocytes # (A) 0.7 k/uL (0-1.0); Monocytes % (A) 7 %; Neutrophils # (A) 8.6 k/uL (1.3-7.7); Neutrophils % (A) 85 %; Platelet Count 104 k/uL (150-450); RBC 3.39 m/uL (4.30-5.90); RDW 14.6 % (11.5-15.5); WBC 10.2 k/uL (3.8-10.6)
[2020-05-16] MEDS ORDERED: methylPREDNISolone SOD SUCCI 125 MG/2 ML VIAL IV STA (02:59)
--- NOTE | 2020-05-16 03:04 | XR ---
EXAM: XR Chest, 1 View CLINICAL HISTORY: Respiratory distress TECHNIQUE: Frontal view of the chest. COMPARISON: May 15, 2020 FINDINGS: There is bilateral pulmonary infiltration and atelectasis. The infiltrates appear worsened on the left. There is persistent asymmetric elevation of the left hemidiaphragm. The heart appears enlarged. IMPRESSION: Infiltrates have worsened on the left.
[2020-05-16 03:36] LABS: Basophils % (A) 0 %; Eosinophils # (A) 0.1 k/uL (0-0.7); Eosinophils % (A) 1 %; HCT 29.9 % (39.0-53.0); HGB 9.8 gm/dL (13.0-17.5); Lymphocytes # (A) 0.4 k/uL (1.0-4.8); Lymphocytes % (A) 4 %; MCH 28.2 pg (25.0-35.0); MCHC 32.8 g/dL (31.0-37.0); MCV 85.8 fL (80.0-100.0); Mean Platelet Volume 8.6; Monocytes # (A) 0.7 k/uL (0-1.0); Monocytes % (A) 7 %; Neutrophils # (A) 9.4 k/uL (1.3-7.7); Neutrophils % (A) 88 %; Platelet Count 119 k/uL (150-450); RBC 3.49 m/uL (4.30-5.90); RDW 14.7 % (11.5-15.5); WBC 10.7 k/uL (3.8-10.6)
[2020-05-16] MEDS ORDERED: VANCOMYCIN IV PER PHARMACY 1 EACH MISC MISCELLANE PRN (04:00)
[2020-05-16] MEDS ORDERED: CEFEPIME 1 GM in SODIUM CHLORIDE 0.9% 50 ML IVPB STA (04:00)
--- NOTE | 2020-05-16 04:02 | P.EN ---
A team note Activated at 2:24 am. Arrived on the scene shortly after. Discussed with case with RN and reviewed the chart in detail. The patient is a 70-year-old male with a complex PMH including COPD, chronic kidney disease, coronary artery disease status post multiple stents who was brought into the emergency room due to altered mentation. The patient had also complained of shortness of breath and cough upon presentation. The patient normally uses 3 L of nasal cannula oxygen at home continuously though was noted to be hypoxic and was on 10 L nasal cannula throughout the night. The patient also underwent a VQ scan earlier today which was low probably for PE. The RN notes that the patient was found to be hypoxic in the 70s on the 10 L and appeared pale. He also endorsed some chest discomfort and subsequently became more confused. At time of evaluation, the patient was lethargic, not following any commands. Vitals at time of evaluation were BP 144/75, temp 98.7, pulse 86, and SpO2 of 96% on BiPAP 75% FiO2. Blood glucose was 173. Chest x-ray revealed worsening left-sided infiltrate. ABG revealed hypercapnia at 64. General: In mild to moderate respiratory distress, appears stated age, morbidly obese HEENT: NC/AT, anicteric sclerae, moist conjunctiva, no lid-lag, PERRLA Cardiovascular: S1/S2 wnl, no murmurs, rubs, or gallops Lungs: Bilateral wheezing appreciated, abdominal breathing with some substernal retractions noted Abdominal: Obese, non-tender, non-distended, no guarding, rebound, or rigidity Skin: Warm, dry Extremities: No edema or contractures Psychiatric: Not answering any questions or following any commands, opens eyes and makes, eye contact Neuro: Moving all extremities, no gross focal deficits noted Assessment/plan Hypoxia and shortness of breath, likely multifactorial suspected secondary to COPD exacerbation with possible pneumonia -Solu-Medrol ordered -Stat doses of vancomycin and cefepime ordered -Continue with BiPAP for now -Pulmonary consulted -Primary team notified by CHAUNCEY Leos's in place
[2020-05-16 04:14] LABS: Albumin 3.9 g/dL (3.5-5.0); Calcium 8.6 mg/dL (8.4-10.2); Total Bilirubin 0.6 mg/dL (0.2-1.3); Total Protein 6.2 g/dL (6.3-8.2)
[2020-05-16] MEDS: SODIUM CHLORIDE 0.9% 1,000 ML IV SCH ×2 (04:16→14:12)
[2020-05-16 04:23] LABS: Potassium 6.1 mmol/L (3.5-5.1)
[2020-05-16] MEDS ORDERED: CALCIUM GLUCONATE 1 GM in SODIUM CHLORIDE 0.9% 100 ML IVPB ONE (04:32)
[2020-05-16] MEDS ORDERED: SODIUM BICARB 8.4% 50 ML SYR (1 MEQ/ML) IV STA ×2 (04:33)
[2020-05-16] MEDS ORDERED: DEXTROSE 50% SYRINGE 50 ML IVP STA (04:33)
[2020-05-16] MEDS ORDERED: INSULIN REGULAR 100 UNIT/ML VIAL IV ONE (04:33)
[2020-05-16] MEDS: VANCOMYCIN 2,000 MG in SODIUM CHLORIDE 0.9% 500 ML 500 ML IVPB STA ×2 (05:06→06:18)
[2020-05-16 05:59] LABS: Glucose,Whole Blood 217 mg/dL (75-99)
[2020-05-16] MEDS: INSULIN ASPART (NovoLOG) 100 UNIT/ML VIAL SQ SCH ×4 (06:19→20:23)
[2020-05-16] MEDS: carvediloL 12.5 MG TAB PO SCH ×2 (08:30→20:18)
[2020-05-16] MEDS: amLODIPine 10 MG TAB PO SCH (08:31)
[2020-05-16] MEDS: CITALOPRAM HYDROBROMIDE 20 MG TAB PO SCH (08:31)
[2020-05-16] MEDS: GABAPENTIN 300 MG CAP PO SCH ×2 (08:31→20:18)
[2020-05-16] MEDS: FERROUS SULFATE 325 MG TAB PO SCH (08:31)
[2020-05-16] MEDS: GLIMEPIRIDE 1 MG TAB PO SCH (08:31)
[2020-05-16 09:21] LABS: Albumin 3.7 g/dL (3.5-5.0); Calcium 8.8 mg/dL (8.4-10.2); Potassium 5.9 mmol/L (3.5-5.1); Total Bilirubin 0.7 mg/dL (0.2-1.3); Total Protein 6.2 g/dL (6.3-8.2)
[2020-05-16] MEDS ORDERED: FUROSEMIDE 10 MG/ML 2 ML VIAL IV STA (09:55)
--- NOTE | 2020-05-16 09:58 | P.NPCON ---
History of Present Illness - Reason for Consult chronic renal failure, hyperkalemia - History of Present Illness Reason for consultation: Chronic kidney disease and hyperkalemia History of present illness: Excellent patient is a 70-year-old male seen in renal consultation for chronic kidney disease and hyperkalemia. Patient has chronic kidney disease stage IV with baseline creatinine in the range of 2.5-3. GFR is at baseline. Patient's potassium level was 6.6 on admission shows been medically treated. This morning it was 5.9. Patient is nonoliguric. He has a Wood catheter. Urine output 1500 mL since admission. Patient is currently on BiPAP. Patient initially presented to the hospital due to altered mental status and hallucinations. He was on losartan at home which is currently held. Patient was noted to have mild urinary retention of 400 mL before Wood catheter was placed. He is currently on normal saline at 50 mL an hour. Patient is currently on BiPAP and not a reliable historian. He does have history of diabetes and blood sugars are fairly well controlled. No evidence of acidosis. No evidence of hypotension. VQ scan revealed low probability of PE. No evidence of gross fluid overload on chest x-ray. Patient's echocardiogram of April 2019 revealed preserved ejection fraction. Patient did become more hypoxic and short of breath last night and A team was called - he received IV steroids as well as antibiotics and was placed on BiPAP. Vital signs are stable. General: The patient appeared well nourished and normally developed. HEENT: Head exam is unremarkable. On BiPAP. LUNGS: Breath sounds decreased. HEART: Rate and Rhythm are regular. ABDOMEN: Soft, no distention noted. EXTREMITITES: Trace edema. Past Medical History Past Medical History: COPD, CVA/TIA, Diabetes Mellitus, GERD/Reflux, Hypertension, Osteoarthritis (OA), Sleep Apnea/CPAP/BIPAP Additional Past Medical History / Comment(s): having "stomach pain for 4 months",has cpap, TIA years ago, on 3--20 episode of confusion,slurred speech,tremors, oxygen use History of Any Multi-Drug Resistant Organisms: None Reported Past Surgical History: Cholecystectomy, Heart Catheterization With Stent, Hernia Repair, Orthopedic Surgery Additional Past Surgical History / Comment(s): heart stents x 3,carpal tunnel, left carotid endarterectomy, RIGHT HIP with pin, rt shoulder, umbilical hernia, CTS shayna x2 Past Anesthesia/Blood Transfusion Reactions: No Reported Reaction Date of Last Stent Placement:: 12-10-17 Past Psychological History: Anxiety, Depression Smoking Status: Former smoker Past Alcohol Use History: None Reported Additional Past Alcohol Use History / Comment(s): STARTED SMOKING AT AGE 15 QUIT SMOKING AT AGE 35 SMOKED 4 PPD Past Drug Use History: None Reported - Past Family History Mother Family Medical History: Cancer Medications and Allergies Home Medications Medication Instructions Recorded Confirmed Type amLODIPine BESYLATE [Amlodipine 10 mg PO DAILY 10/26/15 05/15/20 History Besylate] Gabapentin 600 mg PO BID 10/25/18 05/15/20 History Losartan Potassium 25 mg PO DAILY 09/14/19 05/15/20 History Carvedilol [Coreg] 25 mg PO BID 01/26/20 05/15/20 History Ferrous Sulfate [Feosol] 325 mg PO DAILY 01/26/20 05/15/20 History Glimepiride [Amaryl] 1 mg PO DAILY 01/26/20 05/15/20 History Dicyclomine [Bentyl] 20 mg PO TID PRN #20 tablet 02/04/20 05/15/20 Rx Citalopram Hydrobromide [CeleXA] 40 mg PO DAILY 05/15/20 05/15/20 History levETIRAcetam [Keppra] 750 mg PO BID 05/15/20 05/15/20 History traMADol HCL 50 mg PO QID 05/15/20 05/15/20 History Allergies Allergy/AdvReac Type Severity Reaction Status Date / Time neomycin Allergy Itching Verified 05/15/20 15:55 Physical Exam Vitals: Vital Signs Temp Pulse Pulse Resp BP BP Pulse Ox 05/16/20 08:26 98.2 F 75 18 166/92 94 L 05/16/20 08:00 75 18 05/16/20 03:15 98.7 F 86 14 144/75 96 05/16/20 03:00 32 H 90 L 05/16/20 02:45 32 H 75 L 05/16/20 00:15 26 H 92 L 05/16/20 00:00 98.3 F 82 26 H 177/79 87 L 05/15/20 20:15 28 H 90 L 05/15/20 20:00 97.8 F 86 26 H 153/76 85 L 05/15/20 17:57 97.7 F 81 28 H 122/75 89 L 05/15/20 16:01 79 20 05/15/20 16:00 85 18 153/77 91 L 05/15/20 15:47 81 20 05/15/20 14:39 86 18 148/116 90 L 05/15/20 12:25 97.7 F 72 20 149/78 90 L Intake and Output 05/15/20 05/16/20 05/16/20 22:59 06:59 14:59 Intake Total 475 Output Total 480 1020 Balance -480 -545 Intake: Oral 475 Output: Urine 480 1020 Other: Voiding Method Indwelling Catheter Indwelling Catheter Indwelling Catheter # Voids 1 Weight 123.377 kg 124.8 kg Results - Lab Results Most recent lab results ABG pH 7.20 (7.35-7.45) L 05/16/20 02:41 ABG pCO2 64 mmHg (35-45) H 05/16/20 02:41 ABG pO2 91 mmHg (83-108) 05/16/20 02:41 ABG HCO3 25 mmol/L (21-25) 05/16/20 02:41 ABG O2 Saturation 95.9 % (94-97) 05/16/20 02:41 Calcium 8.8 mg/dL (8.4-10.2) 05/16/20 07:18 Magnesium 2.0 mg/dL (1.6-2.3) 05/16/20 03:16 05/16/20 03:16 05/16/20 07:18 Assessment and Plan Plan: Assessment: 1. Chronic kidney disease stage IV with baseline creatinine in the range of 2.5-3. Creatinine 2.55 today. Etiology is diabetic kidney disease 2. Hyperkalemia secondary to chronic kidney disease, urinary retention and losartan. 3. Urinary retention status post Wood catheter placement. 4. Hypertension with chronic kidney disease. 5. Diabetes mellitus. 6. Anemia of chronic kidney disease. Rule out iron deficiency. Plan: Maintain Wood catheter. Add Flomax. 20 mg IV Lasix now. Check renal ultrasound. Repeat potassium level this afternoon. Continue to monitor renal function and urine output. Continue to hold losartan. Follow-up echocardiogram. Thank you for the consultation. I will continue to follow the patient with you during his hospital stay.
--- NOTE | 2020-05-16 10:02 | P.CRDCN ---
History of Present Illness History of present illness: HISTORY OF PRESENTING ILLNESS This is a pleasant 70-year-old male past medical history significant for coronary artery disease status post PCI of the proximal mid and distal RCA in 2018, hypertension, dyslipidemia, paroxysmal atrial fibrillation on Eliquis 2.5 mg secondary to GI bleeding with moderate gastritis noted on EGD, diabetes mellitus, TIA, chronic kidney disease, COPD, aortic stenosis and chronic diastolic dysfunction and former nicotine dependence. He follows in the office with Dr. Eng. We have been asked to see in consultation for chest pain. He presented to the emergency department yesterday with his secondary to altered mental status and hallucinations 3 days. He is also complaining of shortness of breath, cough and chest pain. Review of laboratory data indicates he was hyperkalemic. Through the night he had worsening mental status and was found to be hypoxic in the 70s with CO2 retention. He was initiated on BiPAP and given one dose of IV Lasix. He is seen and examined sitting up in bed in no acute distress tolerating BiPAP. He does answer questions appropriately however is not extremely communicative secondary to BiPAP. DIAGNOSTICS EKG reveals sinus mechanism with no acute ST or T wave abnormalities noted. Telemetry tracings indicate sinus mechanism. Chest xray on admission revealed pleural reaction at the lung bases with atele ctasis in no obvious heart failure. Repeat last night after hypoxia revealed infiltrates worsened on the left. Laboratory reviewed, WBC 10.7, hemoglobin 9.8, platelets 119, pH 7.2, pCO2 64, sodium 136, potassium 6.1, creatinine 2.68, magnesium 2.0, cardiac enzymes negative 3. Current cardiac medications include Coreg 25 mg twice a day, losartan 25 mg daily, amlodipine 10 mg daily. Most recent echocardiogram obtained April 2019 revealed preserved LV systolic function with ejection fraction 55-60% with moderate aortic stenosis with a mean gradient 17 mmHg. REVIEW OF SYSTEMS At the time of my exam: CONSTITUTIONAL: Denies fever or chills. CARDIOVASCULAR: Denies chest pain, shortness of breath, orthopnea, PND or palpitations. RESPIRATORY: Denies cough. GASTROINTESTINAL: Denies abdominal pain, diarrhea, constipation, nausea or vomiting. MUSCULOSKELETAL: Denies myalgias. NEUROLOGIC: Denies numbness, tingling, headacbe or weakness. ENDOCRINE: Denies fatigue, weight change, polydipsia or polyurina. GENITOURINARY: Denies burning, hematuria or urgency with micturation. HEMATOLOGIC: Denies history of anemia or bleeding. PHYSICAL EXAMINATION Blood pressure 166/92 heart rate 75 afebrile and maintaining oxygen saturation on bipap. CONSTITUTIONAL: No apparent distress. HEENT: Head is normocephalic. Pupils are equal, round. Sclerae anicteric. Mucous membranes of the mouth are moist. No JVD. No carotid bruit. CHEST EXAMINATION: Lungs are clear to auscultation. No chest wall tenderness is noted on palpation or with deep breathing. HEART EXAMINATION: Regular rate and rhythm. S1, S2 heard. Systolic ejection murmur at the base, no gallops or rub. ABDOMEN: Soft, nontender. Positive bowel sounds. EXTREMITIES: 2+ peripheral pulses, no lower extremity edema and no calf tenderness. NEUROLOGIC EXAMINATION: Patient is awake and alert on bipap, answering some questions appropriately. ASSESSMENT Chest pain Altered mental status Hallucinations Hyperkalemia Pneumonia COPD Chronic kidney disease Coronary artery disease status post PCI of the RCA 2018 Aortic stenosis Paroxysmal atrial fibrillation not currently on anticoagulation for unknown reason. GI bleeding in 10/2018 but was discharged on Eliquis. Pt unable to verbalize at this time Hypertension Dyslipidemia Peripheral vascular disease s/p left carotid endartectomy PLAN An acute coronary event has been ruled out. Hold losartan secondary to hyperkalemia. Initiate aspirin 81 mg daily and atorvastatin 40 mg daily. Currently maintaining sinus mechanism, we will wait on eliquis until the patient can communicate better as to why he is no longer taking it. Obtain 2-D echocardiogram and Doppler study to assess cardiac structure and function. Further recommendations to follow based upon clinical course. Thank you kindly for this consultation. Nurse Practitioner note has been reviewed, I agree with a documented findings and plan of care. Patient was seen and examined. Past Medical History Past Medical History: COPD, CVA/TIA, Diabetes Mellitus, GERD/Reflux, Hypertension, Osteoarthritis (OA), Sleep Apnea/CPAP/BIPAP Additional Past Medical History / Comment(s): having "stomach pain for 4 months",has cpap, TIA years ago, on 320 episode of confusion,slurred speech,tremors, oxygen use History of Any Multi-Drug Resistant Organisms: None Reported Past Surgical History: Cholecystectomy, Heart Catheterization With Stent, Hernia Repair, Orthopedic Surgery Additional Past Surgical History / Comment(s): heart stents x 3,carpal tunnel, left carotid endarterectomy, RIGHT HIP with pin, rt shoulder, umbilical hernia, CTS shayna x2 Past Anesthesia/Blood Transfusion Reactions: No Reported Reaction Date of Last Stent Placement:: 12-10-17 Past Psychological History: Anxiety, Depression Smoking Status: Former smoker Past Alcohol Use History: None Reported Additional Past Alcohol Use History / Comment(s): STARTED SMOKING AT AGE 15 QUIT SMOKING AT AGE 35 SMOKED 4 PPD Past Drug Use History: None Reported - Past Family History Mother Family Medical History: Cancer Medications and Allergies Home Medications Medication Instructions Recorded Confirmed Type amLODIPine BESYLATE [Amlodipine 10 mg PO DAILY 10/26/15 05/15/20 History Besylate] Gabapentin 600 mg PO BID 10/25/18 05/15/20 History Losartan Potassium 25 mg PO DAILY 09/14/19 05/15/20 History Carvedilol [Coreg] 25 mg PO BID 01/26/20 05/15/20 History Ferrous Sulfate [Feosol] 325 mg PO DAILY 01/26/20 05/15/20 History Glimepiride [Amaryl] 1 mg PO DAILY 01/26/20 05/15/20 History Dicyclomine [Bentyl] 20 mg PO TID PRN #20 tablet 02/04/20 05/15/20 Rx Citalopram Hydrobromide [CeleXA] 40 mg PO DAILY 05/15/20 05/15/20 History levETIRAcetam [Keppra] 750 mg PO BID 05/15/20 05/15/20 History traMADol HCL 50 mg PO QID 05/15/20 05/15/20 History Allergies Allergy/AdvReac Type Severity Reaction Status Date / Time neomycin Allergy Itching Verified 05/15/20 15:55 Physical Exam Vitals: Vital Signs Temp Pulse Pulse Resp BP BP Pulse Ox 05/16/20 03:15 98.7 F 86 14 144/75 96 05/16/20 03:00 32 H 90 L 05/16/20 02:45 32 H 75 L 05/16/20 00:15 26 H 92 L 05/16/20 00:00 98.3 F 82 26 H 177/79 87 L 05/15/20 20:15 28 H 90 L 05/15/20 20:00 97.8 F 86 26 H 153/76 85 L 05/15/20 17:57 97.7 F 81 28 H 122/75 89 L 05/15/20 16:01 79 20 05/15/20 16:00 85 18 153/77 91 L 05/15/20 15:47 81 20 05/15/20 14:39 86 18 148/116 90 L 05/15/20 12:25 97.7 F 72 20 149/78 90 L Intake and Output 05/15/20 05/16/20 05/16/20 22:59 06:59 14:59 Intake Total 475 Output Total 480 1020 Balance -480 -545 Intake: Oral 475 Output: Urine 480 1020 Other: Voiding Method Indwelling Catheter Indwelling Catheter # Voids 1 Weight 123.377 kg 124.8 kg Results 05/16/20 03:16 05/16/20 07:18 Cardiac Enzymes 05/15/20 05/15/20 05/15/20 Range/Units 13:31 13:31 16:38 AST 20 (17-59) U/L Troponin I <0.012 <0.012 (0.000-0.034) ng/mL 05/15/20 05/16/20 Range/Units 19:14 03:16 AST 19 (17-59) U/L Troponin I <0.012 (0.000-0.034) ng/mL Coagulation 05/15/20 Range/Units 14:04 PT 12.6 H (9.0-12.0) sec APTT 21.0 L (22.0-30.0) sec CBC 05/15/20 05/16/20 05/16/20 Range/Units 13:31 02:30 03:16 WBC 7.9 10.2 10.7 H (3.8-10.6) k/uL RBC 3.67 L 3.39 L 3.49 L (4.30-5.90) m/uL Hgb 10.7 L 9.9 L 9.8 L (13.0-17.5) gm/dL Hct 31.7 L 29.3 L 29.9 L (39.0-53.0) % Plt Count 132 L 104 L 119 L (150-450) k/uL Comprehensive Metabolic Panel 05/15/20 05/15/20 05/16/20 Range/Units 13:31 19:14 00:32 Sodium 134 L (137-145) mmol/L Potassium 6.6 H* 6.4 H* 5.5 H (3.5-5.1) mmol/L Chloride 103 (98-107) mmol/L Carbon Dioxide 23 (22-30) mmol/L BUN 48 H (9-20) mg/dL Creatinine 2.77 H (0.66-1.25) mg/dL Glucose 154 H (74-99) mg/dL Calcium 8.5 (8.4-10.2) mg/dL AST 20 (17-59) U/L ALT 10 (4-49) U/L Alkaline Phosphatase 73 (38-126) U/L Total Protein 6.7 (6.3-8.2) g/dL Albumin 4.2 (3.5-5.0) g/dL 05/16/20 Range/Units 03:16 Sodium 136 L (137-145) mmol/L Potassium 6.1 H* (3.5-5.1) mmol/L Chloride 101 (98-107) mmol/L Carbon Dioxide 25 (22-30) mmol/L BUN 48 H (9-20) mg/dL Creatinine 2.68 H (0.66-1.25) mg/dL Glucose 159 H (74-99) mg/dL Calcium 8.6 (8.4-10.2) mg/dL AST 19 (17-59) U/L ALT 11 (4-49) U/L Alkaline Phosphatase 73 (38-126) U/L Total Protein 6.2 L (6.3-8.2) g/dL Albumin 3.9 (3.5-5.0) g/dL Current Medications Generic Name Dose Route Start Last Admin Trade Name Freq PRN Reason Stop Dose Admin Acetaminophen 650 mg 05/15/20 18:38 05/16/20 00:13 Acetaminophen Tab 325 Mg Tab PO 650 mg Q4HR PRN Administration Fever and/ or Pain Amlodipine Besylate 10 mg 05/16/20 09:00 Amlodipine 10 Mg Tab PO DAILY [facility] Carvedilol 25 mg 05/15/20 21:00 05/15/20 20:10 Carvedilol 12.5 Mg Tab PO 25 mg BID NURIS Administration Citalopram Hydrobromide 40 mg 05/16/20 09:00 Citalopram Hydrobromide 20 Mg Tab PO DAILY [facility] Dicyclomine HCl 20 mg 05/15/20 18:20 Dicyclomine 20 Mg Tab PO TID PRN abdominal pain Ferrous Sulfate 325 mg 05/16/20 09:00 Ferrous Sulfate 325 Mg Tab PO DAILY NURIS Gabapentin 600 mg 05/15/20 21:00 05/15/20 20:10 Gabapentin 300 Mg Cap PO 600 mg BID NURIS Administration Glimepiride 1 mg 05/16/20 09:00 Glimepiride 1 Mg Tab PO DAILY NURIS Sodium Chloride 1,000 mls @ 50 mls/hr 05/15/20 15:45 05/16/20 04:16 Saline 0.9% IV 50 mls/hr .Q20H NURIS Administration Vancomycin HCl 2,000 mg/ 500 mls @ 167 mls/hr 05/17/20 06:00 Sodium Chloride IVPB 05/17/20 08:59 ONCE ONE Insulin Aspart 0 unit 05/15/20 21:00 05/16/20 06:19 Insulin Aspart (Novolog) 100 Unit/Ml Vial SQ 3 unit ACHS NURIS Administration Protocol Levetiracetam 750 mg 05/15/20 21:00 05/15/20 20:10 Levetiracetam 750 Mg Tab PO 750 mg BID NURIS Administration Miscellaneous Information 1 each 05/16/20 04:00 Vancomycin Iv Per Pharmacy 1 Each Misc MISCELLANE DIRECTED PRN Per Protocol Protocol Naloxone HCl 0.2 mg 05/15/20 15:37 Naloxone 0.4 Mg/Ml 1 Ml Vial IV Q2M PRN Opioid Reversal Intake and Output 05/15/20 05/16/20 05/16/20 22:59 06:59 14:59 Intake Total 475 Output Total 480 1020 Balance -480 -545 Intake: Oral 475 Output: Urine 480 1020 Other: Voiding Method Indwelling Catheter Indwelling Catheter # Voids 1 Weight 123.377 kg 124.8 kg 05/16/20 03:16 05/16/20 03:16
[2020-05-16] MEDS: ATORVASTATIN 40 MG TAB PO SCH (10:39)
[2020-05-16] MEDS: TAMSULOSIN 0.4 MG CAP.ER.24H PO SCH (10:39)
[2020-05-16] MEDS: ASPIRIN 81 MG PO SCH (10:39)
[2020-05-16 11:41] LABS: Glucose,Whole Blood 210 mg/dL (75-99)
--- NOTE | 2020-05-16 12:36 | US ---
EXAMINATION TYPE: US kidneys/renal and bladder DATE OF EXAM: 05/16/2020 COMPARISON: CT dated November 14, 2019 CLINICAL HISTORY: wendy. EXAM MEASUREMENTS: Right Kidney: 12.8 x 5.9 x 5.3 cm Left Kidney: 12.4 x 6.1 x 6.7 cm Right Kidney: No hydronephrosis or masses seen, unable to appreciate renal cysts from CT report. Left Kidney: No hydronephrosis or masses seen Bladder: not seen, patient has catheter. Bilateral Jets seen: not seen, patient has catheter Suboptimal due to body habitus . No hydronephrosis seen on images saved. No concerning masses noted. Small exophytic cyst upper pole right kidney on CT not clearly seen on ultrasound. Bladder decompress ed by Wood catheter. IMPRESSION: Suboptimal study without hydronephrosis seen bilaterally.
--- NOTE | 2020-05-16 13:37 | P.CNPUL ---
History of Present Illness Consult date: 05/16/20 Requesting physician: Morales Miramontes Reason for consult: dyspnea, hypoxemia, abnormal CXR/CT, other Chief complaint: Shortness of breath. History of present illness: 70-year-old male, who presents to the emergency department, on 05/15/2020. The patient apparently has a history of chronic kidney disease, essential hypertension, diabetes mellitus, and COPD. He apparently presents to the em ergency department with mental status changes. We saw the patient on the floor, and he was on BiPAP, with an IPAP of 14, EPAP of 5, and 50%. He apparently was complaining of hallucinations in the emergency department, and also was very unsteady on his feet, and did fall the day prior to admission. He apparently hit his head when he fell, but denied LOC. He also states that he sees one of the cardiologists, and has had coronary disease, with previous stent placement. He also admits to a diagnosis of congestive heart failure. The patient is awake and alert on the BiPAP. It is a bit difficult getting history from him because he's got the BiPAP in place. He is feeling better he tells me. Currently, his temperature is 98.2, heart rate 73, respiratory rate between 18 and 19 breaths per minute, and blood pressure is 159/74 with a mean of 102. His saturations are between 94 to 97% on BiPAP. Current labs include a white count of 10.7, hemoglobin 9.8, hematocrit 29.9, and a platelet count of 119,000. Sodium is 138, potassium 5.9, chlorides 102, CO2 28, anion gap 8, BUN 50, and creatinine 2.55. Drug screen was positive for marijuana. His urinalysis is essentially negative. The chest x-rays in my opinion show evidence of cardiomegaly, and cephalization, consistent with vascular decompensation. The pulmonary perfusion study was low probability for pulmonary embolism. Review of Systems REVIEW OF SYSTEMS: CONSTITUTIONAL: Weakness, and unsteady gait. NEUROLOGIC: Mental status changes, hallucinations. HEENT: [ Negative.] CARDIAC: [Negative.] PULMONARY: Shortness of breath. GI: [Negative.] : [Negative.] RHEUMATOLOGIC: [ Negative.] IMMUNOLOGIC: [ Negative.] ENDOCRINE: [Negative. ] DERMATOLOGIC: [Negative.] Past Medical History Past Medical History: COPD, CVA/TIA, Diabetes Mellitus, GERD/Reflux, Hypertension, Osteoarthritis (OA), Sleep Apnea/CPAP/BIPAP Additional Past Medical History / Comment(s): having "stomach pain for 4 months",has cpap, TIA years ago, on 3--20 episode of confusion,slurred speech,tremors, oxygen use History of Any Multi-Drug Resistant Organisms: None Reported Past Surgical History: Cholecystectomy, Heart Catheterization With Stent, Hernia Repair, Orthopedic Surgery Additional Past Surgical History / Comment(s): heart stents x 3,carpal tunnel, left carotid endarterectomy, RIGHT HIP with pin, rt shoulder, umbilical hernia, CTS shayna x2 Past Anesthesia/Blood Transfusion Reactions: No Reported Reaction Date of Last Stent Placement:: 12-10-17 Past Psychological History: Anxiety, Depression Smoking Status: Former smoker Past Alcohol Use History: None Reported Additional Past Alcohol Use History / Comment(s): STARTED SMOKING AT AGE 15 QUIT SMOKING AT AGE 35 SMOKED 4 PPD Past Drug Use History: None Reported - Past Family History Mother Family Medical History: Cancer Medications and Allergies Home Medications Medication Instructions Recorded Confirmed Type amLODIPine BESYLATE [Amlodipine 10 mg PO DAILY 10/26/15 05/15/20 History Besylate] Gabapentin 600 mg PO BID 10/25/18 05/15/20 History Losartan Potassium 25 mg PO DAILY 09/14/19 05/15/20 History Carvedilol [Coreg] 25 mg PO BID 01/26/20 05/15/20 History Ferrous Sulfate [Feosol] 325 mg PO DAILY 01/26/20 05/15/20 History Glimepiride [Amaryl] 1 mg PO DAILY 01/26/20 05/15/20 History Dicyclomine [Bentyl] 20 mg PO TID PRN #20 tablet 02/04/20 05/15/20 Rx Citalopram Hydrobromide [CeleXA] 40 mg PO DAILY 05/15/20 05/15/20 History levETIRAcetam [Keppra] 750 mg PO BID 05/15/20 05/15/20 History traMADol HCL 50 mg PO QID 05/15/20 05/15/20 History Allergies Allergy/AdvReac Type Severity Reaction Status Date / Time neomycin Allergy Itching Verified 05/15/20 15:55 Physical Exam Osteopathic Statement: *. No significant issues noted on an osteopathic structural exam other than those noted in the History and Physical/Consult. Vitals: Vital Signs Temp Pulse Pulse Resp BP BP Pulse Ox 05/16/20 11:30 98.2 F 73 19 159/74 97 05/16/20 08:26 98.2 F 75 18 166/92 94 L 05/16/20 08:00 75 18 05/16/20 03:15 98.7 F 86 14 144/75 96 05/16/20 03:00 32 H 90 L 05/16/20 02:45 32 H 75 L 05/16/20 00:15 26 H 92 L 05/16/20 00:00 98.3 F 82 26 H 177/79 87 L 05/15/20 20:15 28 H 90 L 05/15/20 20:00 97.8 F 86 26 H 153/76 85 L 05/15/20 17:57 97.7 F 81 28 H 122/75 89 L 05/15/20 16:01 79 20 05/15/20 16:00 85 18 153/77 91 L 05/15/20 15:47 81 20 05/15/20 14:39 86 18 148/116 90 L Intake and Output 05/15/20 05/16/20 05/16/20 22:59 06:59 14:59 Intake Total 475 Output Total 480 1020 600 Balance -480 -545 -600 Intake: Oral 475 Output: Urine 480 1020 600 Other: Voiding Method Indwelling Catheter Indwelling Catheter Indwelling Catheter # Voids 1 Weight 123.377 kg 124.8 kg No acute distress, oriented 3. Able to speak in full sentences. BiPAP mask in place. No conversational dyspnea, or use of accessory muscles. HEENT examination is grossly unremarkable. Mucous membranes are moist. No oral lesions. Neck supple. Full range of motion. No adenopathy thyromegaly or neck vein distention. Cardiovascular examination reveals regular rhythm rate. S1-S2 normal. No S3 or S4. No discernible murmur noted. Heart rate is 73. Heart sounds are distant. Lungs reveal bilateral rhonchi and a few scattered crackles. No wheezes. Her sounds equal bilaterally. Breath sounds are diminished throughout. Abdomen soft bowel sounds are heard. No masses or tenderness. Extremities are intact. Trace edema. No cyanosis or clubbing. Skin is without rash or lesion. Neurologic examination is brief but nonfocal. Results - Laboratory Findings CBC and BMP: 05/16/20 03:16 05/16/20 07:18 ABG ABG pH 7.20 (7.35-7.45) L 05/16/20 02:41 ABG pCO2 64 mmHg (35-45) H 05/16/20 02:41 ABG pO2 91 mmHg (83-108) 05/16/20 02:41 ABG O2 Saturation 95.9 % (94-97) 05/16/20 02:41 PT/INR, D-dimer PT 12.6 sec (9.0-12.0) H 05/15/20 14:04 INR 1.2 (<1.2) H 05/15/20 14:04 Abnormal lab findings: Abnormal Labs 05/15/20 05/15/20 05/15/20 12:51 13:31 13:31 WBC RBC 3.67 L Hgb 10.7 L Hct 31.7 L Plt Count 132 L Neutrophils # Lymphocytes # 0.6 L PT INR APTT ABG pH ABG pCO2 ABG Total CO2 VBG pH 7.28 L VBG HCO3 21 L Sodium 134 L Potassium 6.6 H* BUN 48 H Creatinine 2.77 H Glucose 154 H POC Glucose (mg/dL) Plasma Lactic Acid Efrain Creatine Kinase 184 H Total Protein Urine Protein Urine Ketones Urine Blood U Marijuana (THC) Screen 05/15/20 05/15/20 05/15/20 13:31 13:47 14:04 WBC RBC Hgb Hct Plt Count Neutrophils # Lymphocytes # PT 12.6 H INR 1.2 H APTT 21.0 L ABG pH ABG pCO2 ABG Total CO2 VBG pH VBG HCO3 Sodium Potassium BUN Creatinine Glucose POC Glucose (mg/dL) Plasma Lactic Acid Efrain 0.6 L Creatine Kinase Total Protein Urine Protein 2+ H Urine Ketones Trace H Urine Blood Trace H U Marijuana (THC) Screen Detected H 05/15/20 05/15/20 05/16/20 19:14 20:01 00:32 WBC RBC Hgb Hct Plt Count Neutrophils # Lymphocytes # PT INR APTT ABG pH ABG pCO2 ABG Total CO2 VBG pH VBG HCO3 Sodium Potassium 6.4 H* 5.5 H BUN Creatinine Glucose POC Glucose (mg/dL) 211 H Plasma Lactic Acid Efrain Creatine Kinase Total Protein Urine Protein Urine Ketones Urine Blood U Marijuana (THC) Screen 05/16/20 05/16/20 05/16/20 02:24 02:30 02:41 WBC RBC 3.39 L Hgb 9.9 L Hct 29.3 L Plt Count 104 L Neutrophils # 8.6 H Lymphocytes # 0.4 L PT INR APTT ABG pH 7.20 L ABG pCO2 64 H ABG Total CO2 27 H VBG pH VBG HCO3 Sodium Potassium BUN Creatinine Glucose POC Glucose (mg/dL) 173 H Plasma Lactic Acid Efrain Creatine Kinase Total Protein Urine Protein Urine Ketones Urine Blood U Marijuana (THC) Screen 05/16/20 05/16/20 05/16/20 03:16 03:16 05:58 WBC 10.7 H RBC 3.49 L Hgb 9.8 L Hct 29.9 L Plt Count 119 L Neutrophils # 9.4 H Lymphocytes # 0.4 L PT INR APTT ABG pH ABG pCO2 ABG Total CO2 VBG pH VBG HCO3 Sodium 136 L Potassium 6.1 H* BUN 48 H Creatinine 2.68 H Glucose 159 H POC Glucose (mg/dL) 217 H Plasma Lactic Acid Efrain Creatine Kinase Total Protein 6.2 L Urine Protein Urine Ketones Urine Blood U Marijuana (THC) Screen 05/16/20 05/16/20 07:18 11:40 WBC RBC Hgb Hct Plt Count Neutrophils # Lymphocytes # PT INR APTT ABG pH ABG pCO2 ABG Total CO2 VBG pH VBG HCO3 Sodium Potassium 5.9 H BUN 50 H Creatinine 2.55 H Glucose 154 H POC Glucose (mg/dL) 210 H Plasma Lactic Acid Efrain Creatine Kinase Total Protein 6.2 L Urine Protein Urine Ketones Urine Blood U Marijuana (THC) Screen - Diagnostic Findings Chest x-ray: image reviewed Assessment and Plan Assessment: Shortness of breath, which may relate to underlying congestive heart failure, and/or pneumonia. Mental status changes, improved. Etiology unclear. History of essential hypertension. History of obstructive sleep apnea syndrome. History of osteoarthritis. History of essential hypertension. History of gastroesophageal reflux disease. History of diabetes mellitus. Prior history of CVA. History of CAD with prior stent placement. Plan: Plan dated 05/16/2020. The patient will have a pro-calcitonin level ordered as well as a N-terminal proBNP. The patient's medications are reviewed. He states he is feeling better on BiPAP. He did smoke in the past but he states he never smoked heavily. He denies a prior history of any lung issues. He does not take any breathing medications at home. The patient does feel better on the BiPAP. Labs are reviewed and show a white count of 10.7, hemoglobin 9.8, hematocrit 29.9, and platelet count of 119,000. Blood gases show a PaO2 of 91, PaCO2 of 64, and a pH of 7.20. These arterial blood gases are consistent with alveolar hypoventilation. His bicarbonate concentration on his electrolyte profile is essentially normal. Drug screen was positive for marijuana, and his urinalysis was negative. His coronavirus test was negative. In addition, it appears that the patient has suffered acute kidney injury. Nephrology is following. We will continue to follow, and make additional recommendations were appropriate. Time with Patient: Greater than 30
--- NOTE | 2020-05-16 14:26 | P.HPIM ---
History of Present Illness Patient is a pleasant 70-year-old male came in altered mental status. Patient is presently on BiPAP. Patient is also in respiratory failure requiring BiPAP. Patient appears to have hypercapnia hypercapnic respiratory failure patient is obese does have sleep apnea does have restrictive lung disease. She and has her hyperkalemia patient does have chronic kidney disease patient's creatinine is at his baseline at this time. Unable to get much of the history from the patient. Patient is although alert and does give appropriate answers. had a normal ejection fraction the past and normal diastolic function the previous echo cardiogram. She doesn't have any history of congestive heart failure the patient is supposed to use CPAP machine at home unsure whether he is using this. Patient was treated of multiple times with calcium gluconate capsulate insulin D50. Patient was given Lasix by nephrology and potassium has now come down to 5.900 admission it was around 6.7. Patient was evaluated by multiple consultants including cardiology, nephrology, pulmonology. Patient does have leukocytosis patient does have infiltrates in the left lower lung pride concerning for pneumonia. Patient is presently on vancomycin. Cefepime will be added. Patient the had a recent hospitalization on April 23 Review of Systems Rest of the review of systems is negative except those mentioned above. Past Medical History Past Medical History: COPD, CVA/TIA, Diabetes Mellitus, GERD/Reflux, Hypertension, Osteoarthritis (OA), Sleep Apnea/CPAP/BIPAP Additional Past Medical History / Comment(s): having "stomach pain for 4 months",has cpap, TIA years ago, on 05-23-19 episode of confusion,slurred speech,tremors, oxygen use History of Any Multi-Drug Resistant Organisms: None Reported Past Surgical History: Cholecystectomy, Heart Catheterization With Stent, Hernia Repair, Orthopedic Surgery Additional Past Surgical History / Comment(s): heart stents x 3,carpal tunnel, left carotid endarterectomy, RIGHT HIP with pin, rt shoulder, umbilical hernia, CTS shayna x2 Past Anesthesia/Blood Transfusion Reactions: No Reported Reaction Date of Last Stent Placement:: 12-10-17 Past Psychological History: Anxiety, Depression Smoking Status: Former smoker Past Alcohol Use History: None Reported Additional Past Alcohol Use History / Comment(s): STARTED SMOKING AT AGE 15 QUIT SMOKING AT AGE 35 SMOKED 4 PPD Past Drug Use History: None Reported - Past Family History Mother Family Medical History: Cancer Medications and Allergies Home Medications Medication Instructions Recorded Confirmed Type amLODIPine BESYLATE [Amlodipine 10 mg PO DAILY 10/26/15 05/15/20 History Besylate] Gabapentin 600 mg PO BID 10/25/18 05/15/20 History Losartan Potassium 25 mg PO DAILY 09/14/19 05/15/20 History Carvedilol [Coreg] 25 mg PO BID 01/26/20 05/15/20 History Ferrous Sulfate [Feosol] 325 mg PO DAILY 01/26/20 05/15/20 History Glimepiride [Amaryl] 1 mg PO DAILY 01/26/20 05/15/20 History Dicyclomine [Bentyl] 20 mg PO TID PRN #20 tablet 02/04/20 05/15/20 Rx Citalopram Hydrobromide [CeleXA] 40 mg PO DAILY 05/15/20 05/15/20 History levETIRAcetam [Keppra] 750 mg PO BID 05/15/20 05/15/20 History traMADol HCL 50 mg PO QID 05/15/20 05/15/20 History Allergies Allergy/AdvReac Type Severity Reaction Status Date / Time neomycin Allergy Itching Verified 05/15/20 15:55 Physical Exam Vitals: Vital Signs Temp Pulse Pulse Resp BP BP Pulse Ox 05/16/20 11:30 98.2 F 73 19 159/74 97 05/16/20 08:26 98.2 F 75 18 166/92 94 L 05/16/20 08:00 75 18 05/16/20 03:15 98.7 F 86 14 144/75 96 05/16/20 03:00 32 H 90 L 05/16/20 02:45 32 H 75 L 05/16/20 00:15 26 H 92 L 05/16/20 00:00 98.3 F 82 26 H 177/79 87 L 05/15/20 20:15 28 H 90 L 05/15/20 20:00 97.8 F 86 26 H 153/76 85 L 05/15/20 17:57 97.7 F 81 28 H 122/75 89 L 05/15/20 16:01 79 20 05/15/20 16:00 85 18 153/77 91 L 05/15/20 15:47 81 20 05/15/20 14:39 86 18 148/116 90 L Intake and Output 05/15/20 05/16/20 05/16/20 22:59 06:59 14:59 Intake Total 475 Output Total 480 1020 600 Balance -454 -966 -395 Intake: Oral 475 Output: Urine 480 1020 600 Other: Voiding Method Indwelling Catheter Indwelling Catheter Indwelling Catheter # Voids 1 Weight 123.377 kg 124.8 kg PHYSICAL EXAMINATION: GENERAL: He is alert on BiPAP able to answer questions appropriately is in respiratory distress. Well developed, well nourished. HEENT: Pupils are round and equally reacting to light. EOMI. No scleral icterus. No conjunctival pallor. Normocephalic, atraumatic. No pharyngeal erythema. No thyromegaly. CARDIOVASCULAR: S1 and S2 present. No murmurs, rubs, or gallops. PULMONARY: Bilateral rhonchi with the some crackles. The bilateral lower lung bases. ABDOMEN: Soft, nontender, nondistended, normoactive bowel sounds. No palpable o rganomegaly. MUSCULOSKELETAL: No joint swelling or deformity. EXTREMITIES: No cyanosis, clubbing, or pedal edema. NEUROLOGICAL: Gross neurological examination did not reveal any focal deficits. SKIN: No rashes. Results CBC & Chem 7: 05/16/20 03:16 05/16/20 07:18 Labs: Abnormal Lab Results - Last 24 Hours (Table) 05/15/20 05/15/20 05/15/20 Range/Units 13:47 14:04 19:14 WBC (3.8-10.6) k/uL RBC (4.30-5.90) m/uL Hgb (13.0-17.5) gm/dL Hct (39.0-53.0) % Plt Count (150-450) k/uL Neutrophils # (1.3-7.7) k/uL Lymphocytes # (1.0-4.8) k/uL PT 12.6 H (9.0-12.0) sec INR 1.2 H (<1.2) APTT 21.0 L (22.0-30.0) sec ABG pH (7.35-7.45) ABG pCO2 (35-45) mmHg ABG Total CO2 (19-24) mmol/L Sodium (137-145) mmol/L Potassium 6.4 H* (3.5-5.1) mmol/L BUN (9-20) mg/dL Creatinine (0.66-1.25) mg/dL Glucose (74-99) mg/dL POC Glucose (mg/dL) (75-99) mg/dL Total Protein (6.3-8.2) g/dL Urine Protein 2+ H (Negative) Urine Ketones Trace H (Negative) Urine Blood Trace H (Negative) U Marijuana (THC) Screen Detected H (NotDetected) 05/15/20 05/16/20 05/16/20 Range/Units 20:01 00:32 02:24 WBC (3.8-10.6) k/uL RBC (4.30-5.90) m/uL Hgb (13.0-17.5) gm/dL Hct (39.0-53.0) % Plt Count (150-450) k/uL Neutrophils # (1.3-7.7) k/uL Lymphocytes # (1.0-4.8) k/uL PT (9.0-12.0) sec INR (<1.2) APTT (22.0-30.0) sec ABG pH (7.35-7.45) ABG pCO2 (35-45) mmHg ABG Total CO2 (19-24) mmol/L Sodium (137-145) mmol/L Potassium 5.5 H (3.5-5.1) mmol/L BUN (9-20) mg/dL Creatinine (0.66-1.25) mg/dL Glucose (74-99) mg/dL POC Glucose (mg/dL) 211 H 173 H (75-99) mg/dL Total Protein (6.3-8.2) g/dL Urine Protein (Negative) Urine Ketones (Negative) Urine Blood (Negative) U Marijuana (THC) Screen (NotDetected) 05/16/20 05/16/20 05/16/20 Range/Units 02:30 02:41 03:16 WBC 10.7 H (3.8-10.6) k/uL RBC 3.39 L 3.49 L (4.30-5.90) m/uL Hgb 9.9 L 9.8 L (13.0-17.5) gm/dL Hct 29.3 L 29.9 L (39.0-53.0) % Plt Count 104 L 119 L (150-450) k/uL Neutrophils # 8.6 H 9.4 H (1.3-7.7) k/uL Lymphocytes # 0.4 L 0.4 L (1.0-4.8) k/uL PT (9.0-12.0) sec INR (<1.2) APTT (22.0-30.0) sec ABG pH 7.20 L (7.35-7.45) ABG pCO2 64 H (35-45) mmHg ABG Total CO2 27 H (19-24) mmol/L Sodium (137-145) mmol/L Potassium (3.5-5.1) mmol/L BUN (9-20) mg/dL Creatinine (0.66-1.25) mg/dL Glucose (74-99) mg/dL POC Glucose (mg/dL) (75-99) mg/dL Total Protein (6.3-8.2) g/dL Urine Protein (Negative) Urine Ketones (Negative) Urine Blood (Negative) U Marijuana (THC) Screen (NotDetected) 05/16/20 05/16/20 05/16/20 Range/Units 03:16 05:58 07:18 WBC (3.8-10.6) k/uL RBC (4.30-5.90) m/uL Hgb (13.0-17.5) gm/dL Hct (39.0-53.0) % Plt Count (150-450) k/uL Neutrophils # (1.3-7.7) k/uL Lymphocytes # (1.0-4.8) k/uL PT (9.0-12.0) sec INR (<1.2) APTT (22.0-30.0) sec ABG pH (7.35-7.45) ABG pCO2 (35-45) mmHg ABG Total CO2 (19-24) mmol/L Sodium 136 L (137-145) mmol/L Potassium 6.1 H* 5.9 H (3.5-5.1) mmol/L BUN 48 H 50 H (9-20) mg/dL Creatinine 2.68 H 2.55 H (0.66-1.25) mg/dL Glucose 159 H 154 H (74-99) mg/dL POC Glucose (mg/dL) 217 H (75-99) mg/dL Total Protein 6.2 L 6.2 L (6.3-8.2) g/dL Urine Protein (Negative) Urine Ketones (Negative) Urine Blood (Negative) U Marijuana (THC) Screen (NotDetected) 05/16/20 Range/Units 11:40 WBC (3.8-10.6) k/uL RBC (4.30-5.90) m/uL Hgb (13.0-17.5) gm/dL Hct (39.0-53.0) % Plt Count (150-450) k/uL Neutrophils # (1.3-7.7) k/uL Lymphocytes # (1.0-4.8) k/uL PT (9.0-12.0) sec INR (<1.2) APTT (22.0-30.0) sec ABG pH (7.35-7.45) ABG pCO2 (35-45) mmHg ABG Total CO2 (19-24) mmol/L Sodium (137-145) mmol/L Potassium (3.5-5.1) mmol/L BUN (9-20) mg/dL Creatinine (0.66-1.25) mg/dL Glucose (74-99) mg/dL POC Glucose (mg/dL) 210 H (75-99) mg/dL Total Protein (6.3-8.2) g/dL Urine Protein (Negative) Urine Ketones (Negative) Urine Blood (Negative) U Marijuana (THC) Screen (NotDetected) Thrombosis Risk Factor Assmnt - Choose All That Apply Any of the Below Risk Factors Present?: Yes Each Factor Represents 1 point: Abnormal pulmonary function (COPD), Obesity (BMI >25) Other Risk Factors: Yes Each Risk Factor Represents 2 Points: Age 61-74 years Other congenital or acquired thrombophilia - If yes, enter type in comment: No Thrombosis Risk Factor Assessment Total Risk Factor Score: 4 Thrombosis Risk Factor Assessment Level: Moderate Risk Assessment and Plan Plan: -Acute hypercapnic respiratory failure as well as hypoxic respiratory failure: Secondary to restrictive lung disease along with possible left lower lobe pneumonia. Patient will be continued on broad-spectrum antibiotics for now sputum cultures will be obtained. Although I cannot completely rule out new onset congestive heart failure cardiology is following the patient. He does have history of COPD as well. -Mental status changes: Metabolic and toxic encephalopathy from infection and C O2 retention -Essential hypertension continue with the amlodipine -Obstructive sleep apnea possible severe restrictive lung disease -Gastroesophageal reflux disease -Type 2 diabetes mellitus with diabetic nephropathy and chronic kidney disease stage IV -Coronary artery disease with prior stents - severe hyperkalemia hold off on JES inhibitor, and secondary to renal failure. -Diabetic peripheral neuropathy -DVT prophylaxis with heparin
[2020-05-16] MEDS: CEFEPIME 1 GM in SODIUM CHLORIDE 0.9% 50 ML IVPB SCH (16:17)
[2020-05-16] MEDS: HEPARIN SODIUM,PORCINE 5,000 UNIT/ML 1 ML VIAL SQ SCH ×2 (16:17→23:15)
[2020-05-16] MEDS: HYDROcodone/APAP 5-325MG 1 EACH TAB PO PRN (17:00)
[2020-05-16 17:01] LABS: Glucose,Whole Blood 222 mg/dL (75-99)
[2020-05-16] MEDS: BUDESONIDE 0.5 MG/2 ML NEBU INHALATION SCH (19:11)
[2020-05-16 20:03] LABS: Glucose,Whole Blood 343 mg/dL (75-99)
[2020-05-16] MEDS: FAMOTIDINE 20 MG TAB PO SCH (20:18)
[2020-05-16] MEDS ORDERED: ONDANSETRON 4 MG/2 ML VIAL IVP PRN (21:39)
[2020-05-16] MEDS ORDERED: FUROSEMIDE 10 MG/ML 4 ML VIAL IV STA (21:59)
[2020-05-16] MEDS ORDERED: FUROSEMIDE 10 MG/ML 4 ML VIAL ONE (22:00)
[2020-05-16 23:16] LABS: % Iron Saturation 11.93 (15.00-50.00)
[2020-05-17] MEDS ORDERED: METOCLOPRAMIDE 5 MG/ML 2 ML VIAL IVP STA (00:12)
[2020-05-17] MEDS ORDERED: FUROSEMIDE 10 MG/ML 2 ML VIAL IV ONE (00:12)
--- NOTE | 2020-05-17 00:45 | XR ---
EXAM: XR Chest, 1 View CLINICAL HISTORY: ITS.REASON XR Reason: desats, TECHNIQUE: Frontal view of the chest. COMPARISON: Chest x-ray dated 05/08/2020 at 2:42 AM FINDINGS: Lungs: Perihilar and infrahilar opacities likely resent an infectious process. Pleural space: Small left and trace right pleural effusion. Heart: Heart is enlarged. Mediastinum: Unremarkable. Bones/joints: Unremarkable. IMPRESSION: 1. Perihilar and infrahilar opacities likely resent an infectious process. 2. Small left and trace right pleural effusion.
[2020-05-17 02:03] LABS: Glucose,Whole Blood 108 mg/dL (75-99)
[2020-05-17] MEDS: CEFEPIME 1 GM in SODIUM CHLORIDE 0.9% 50 ML IVPB SCH ×2 (03:30→14:56)
[2020-05-17] MEDS ORDERED: VANCOMYCIN 2,000 MG in SODIUM CHLORIDE 0.9% 500 ML 500 ML IVPB ONE (06:00)
[2020-05-17 06:12] LABS: Glucose,Whole Blood 149 mg/dL (75-99)
[2020-05-17] MEDS: INSULIN ASPART (NovoLOG) 100 UNIT/ML VIAL SQ SCH ×4 (06:23→21:15)
[2020-05-17] MEDS: SODIUM CHLORIDE 0.9% 1,000 ML IV SCH (06:25)
[2020-05-17] MEDS: BUDESONIDE 0.5 MG/2 ML NEBU INHALATION SCH ×2 (08:24→20:46)
[2020-05-17 08:42] LABS: Calcium 8.6 mg/dL (8.4-10.2); Magnesium 1.9 mg/dL (1.6-2.3); Potassium 4.8 mmol/L (3.5-5.1)
[2020-05-17] MEDS: CITALOPRAM HYDROBROMIDE 20 MG TAB PO SCH (09:26)
[2020-05-17] MEDS: GLIMEPIRIDE 1 MG TAB PO SCH (09:26)
[2020-05-17] MEDS: ATORVASTATIN 40 MG TAB PO SCH (09:26)
[2020-05-17] MEDS: carvediloL 12.5 MG TAB PO SCH ×2 (09:26→21:14)
[2020-05-17] MEDS: FAMOTIDINE 20 MG TAB PO SCH (09:26)
[2020-05-17] MEDS: FERROUS SULFATE 325 MG TAB PO SCH (09:26)
[2020-05-17] MEDS: ASPIRIN 81 MG PO SCH (09:27)
[2020-05-17] MEDS: amLODIPine 10 MG TAB PO SCH (09:27)
[2020-05-17] MEDS: TAMSULOSIN 0.4 MG CAP.ER.24H PO SCH (09:27)
[2020-05-17] MEDS: HEPARIN SODIUM,PORCINE 5,000 UNIT/ML 1 ML VIAL SQ SCH ×3 (09:27→23:50)
[2020-05-17] MEDS: GABAPENTIN 300 MG CAP PO SCH ×2 (09:27→21:15)
[2020-05-17] MEDS ORDERED: FUROSEMIDE 10 MG/ML 4 ML VIAL IV STA (10:53)
--- NOTE | 2020-05-17 10:55 | P.PN ---
Subjective Patient is seen in follow-up for chronic kidney disease and hyperkalemia. Patient has chronic kidney disease stage IV with baseline creatinine in the range of 2.5-3. Renal function stable. Calcium level normal. Nonoliguric. Denies chest pain or shortness of breath. Currently on 15 L high flow nasal cannula. Oral intake fair. Vital signs are stable. General: The patient appeared well nourished and normally developed. HEENT: Head exam is unremarkable. Neck is without jugular venous distension. LUNGS: Breath sounds decreased. HEART: Rate and Rhythm are regular. ABDOMEN: Soft, nontender. EXTREMITITES: Trace edema. Objective - Vital Signs Vital signs: Vital Signs Temp 98.4 F 05/17/20 03:46 Pulse 88 05/17/20 08:35 Resp 18 05/17/20 03:46 BP 175/75 05/17/20 03:46 Pulse Ox 94 L 05/17/20 03:46 Intake & Output 05/16/20 05/17/20 05/17/20 18:59 06:59 18:59 Intake Total 720 240 Output Total 900 710 675 Balance -180 -710 -435 Weight 118.5 kg Intake: Oral 720 240 Output: Urine 900 710 675 Uretheral (Wood) 150 300 Other: Voiding Method Indwelling Catheter Indwelling Catheter - Labs CBC & Chem 7: 05/16/20 03:16 05/17/20 07:28 Labs: Abnormal Lab Results - Last 24 Hours (Table) 05/16/20 05/16/20 05/16/20 Range/Units 11:40 14:22 14:22 Potassium 5.4 H (3.5-5.1) mmol/L BUN (9-20) mg/dL Creatinine (0.66-1.25) mg/dL Glucose (74-99) mg/dL POC Glucose (mg/dL) 210 H (75-99) mg/dL Iron 34 L (65-175) ug/dL % Saturation 11.93 L (15.00-50.00) Procalcitonin (0.02-0.09) ng/mL 05/16/20 05/16/20 05/16/20 Range/Units 14:28 16:58 19:42 Potassium 5.2 H (3.5-5.1) mmol/L BUN (9-20) mg/dL Creatinine (0.66-1.25) mg/dL Glucose (74-99) mg/dL POC Glucose (mg/dL) 222 H (75-99) mg/dL Iron (65-175) ug/dL % Saturation (15.00-50.00) Procalcitonin 0.35 H (0.02-0.09) ng/mL 05/16/20 05/17/20 05/17/20 Range/Units 20:02 02:01 06:10 Potassium (3.5-5.1) mmol/L BUN (9-20) mg/dL Creatinine (0.66-1.25) mg/dL Glucose (74-99) mg/dL POC Glucose (mg/dL) 343 H 108 H 149 H (75-99) mg/dL Iron (65-175) ug/dL % Saturation (15.00-50.00) Procalcitonin (0.02-0.09) ng/mL 05/17/20 Range/Units 07:28 Potassium (3.5-5.1) mmol/L BUN 53 H (9-20) mg/dL Creatinine 2.60 H (0.66-1.25) mg/dL Glucose 129 H (74-99) mg/dL POC Glucose (mg/dL) (75-99) mg/dL Iron (65-175) ug/dL % Saturation (15.00-50.00) Procalcitonin (0.02-0.09) ng/mL Assessment and Plan Plan: Assessment: 1. Chronic kidney disease stage IV with baseline creatinine in the range of 2.5-3. Renal function stable. Etiology is diabetic kidney disease no hydronephrosis noted on kidney ultrasound.. 2. Hyperkalemia secondary to chronic kidney disease, urinary retention and losartan. Potassium now normal. 3. Urinary retention status post Wood catheter placement. On Flomax. 4. Hypertension with chronic kidney disease. 5. Diabetes mellitus. 6. Anemia of chronic kidney disease. Iron deficiency noted. 7. Volume overload. Plan: Maintain Wood catheter. Add Lasix 40 mg IV once daily. Continue to monitor renal function and urine output. Continue to hold losartan. Follow-up echocardiogram. IV iron 3 doses. First dose today. Add hydralazine 25 mg 3 times daily. To be held for systolic blood pressure less than 125.
--- NOTE | 2020-05-17 10:57 | P.PN ---
Subjective Progress Note Date: 05/17/20 70-year-old male, who presents to the emergency department, on 05/15/2020. The patient apparently has a history of chronic kidney disease, essential hypertension, diabetes mellitus, and COPD. He apparently presents to the emergency department with mental status changes. We saw the patient on the floor, and he was on BiPAP, with an IPAP of 14, EPAP of 5, and 50%. He apparently was complaining of hallucinations in the emergency department, and also was very unsteady on his feet, and did fall the day prior to admission. He apparently hit his head when he fell, but denied LOC. He also states that he sees one of the cardiologists, and has had coronary disease, with previous stent placement. He also admits to a diagnosis of congestive heart failure. The patient is awake and alert on the BiPAP. It is a bit difficult getting history from him because he's got the BiPAP in place. He is feeling better he tells me. Currently, his temperature is 98.2, heart rate 73, respiratory rate between 18 and 19 breaths per minute, and blood pressure is 159/74 with a mean of 102. His saturations are between 94 to 97% on BiPAP. Current labs include a white count of 10.7, hemoglobin 9.8, hematocrit 29.9, and a platelet count of 119,000. Sodium is 138, potassium 5.9, chlorides 102, CO2 28, anion gap 8, BUN 50, and creatinine 2.55. Drug screen was positive for marijuana. His urinalysis is essentially negative. The chest x-rays in my opinion show evidence of cardiomegaly, and cephalization, consistent with vascular decompensation. The pulmonary perfusion study was low probability for pulmonary embolism. On 2020, the patient is being seen for a follow. This 70-year-old male patient has chronic kidney disease, stage IV with a baseline creatinine ranging between 2.73 and the patient came in with altered mental status and worsening shortness of breath. He was nonoliguric. Potassium level was elevated at 6.6 and then drop down to 5.9. Patient was noted to have some mild urinary retention of 400 mL before the Wood catheter insertion. He was initially placed on BiPAP. VQ scan a low probability. Echocardiogram from April 2019 was a preserved LV function. On today's evaluation, the patient remains on BiPAP at a pressure of 14/5 cm of water with an FiO2 of 40%. He is utilizing a full face mask and is quite synchronous and comfortable while being on a BiPAP treatment. He is looking and slightly less short of breath compared to yesterday. His blood work today shows a BUN of 53 with a creatinine of 2.6 which is compatible to yesterday. Potassium level has dropped down to 4.8. The patient's chest x-ray from today shows cardiomegaly and addition to some cephali zation. There is trace right-sided pleural effusion and there is some bilateral perihilar infiltrates. There is evidence of vascular decompensation. There may be also an extensive consolidation of the left lower lung. Left hemidiaphragm is more silhouetted on today's evaluation. The patient remains on IV cefepime as a broad-spectrum antibiotic coverage. The patient is on antibiotics and prot on serotonin level is at 0.35.. Ultrasound the Kidneys Showed No Evidence of Any Hydronephrosis Objective - Vital Signs Vital signs: Vital Signs Temp 98.4 F 05/17/20 03:46 Pulse 88 05/17/20 08:35 Resp 18 05/17/20 03:46 BP 175/75 05/17/20 03:46 Pulse Ox 94 L 05/17/20 03:46 Intake & Output 05/16/20 05/17/20 05/17/20 18:59 06:59 18:59 Intake Total 720 240 Output Total 900 710 675 Balance -180 -710 -435 Weight 118.5 kg Intake: Oral 720 240 Output: Urine 900 710 675 Uretheral (Wood) 150 300 Other: Voiding Method Indwelling Catheter Indwelling Catheter - Exam No acute distress, oriented 3. Able to speak in full sentences. BiPAP mask in place. No conversational dyspnea, or use of accessory muscles. HEENT examination is grossly unremarkable. Mucous membranes are moist. No oral lesions. Neck supple. Full range of motion. No adenopathy thyromegaly or neck vein distention. Cardiovascular examination reveals regular rhythm rate. S1-S2 normal. No S3 or S4. No discernible murmur noted. Heart rate is 73. Heart sounds are distant. Lungs reveal bilateral rhonchi and a few scattered crackles. No wheezes. Her sounds equal bilaterally. Breath sounds are diminished throughout. The patient continues to have crackles in the lung bases along with diminished breath on the lung bases bilaterally. He is quite significant with a BiPAP machine. No use of accessory muscles of breathing on today's evaluation. Abdomen soft bowel sounds are heard. No masses or tenderness. Extremities are intact. Trace edema. No cyanosis or clubbing. Skin is without rash or lesion. Neurologic examination is brief but nonfocal. - Labs CBC & Chem 7: 05/16/20 03:16 05/17/20 07:28 Labs: Abnormal Lab Results - Last 24 Hours (Table) 05/16/20 05/16/20 05/16/20 Range/Units 11:40 14:22 14:22 Potassium 5.4 H (3.5-5.1) mmol/L BUN (9-20) mg/dL Creatinine (0.66-1.25) mg/dL Glucose (74-99) mg/dL POC Glucose (mg/dL) 210 H (75-99) mg/dL Iron 34 L (65-175) ug/dL % Saturation 11.93 L (15.00-50.00) Procalcitonin (0.02-0.09) ng/mL 05/16/20 05/16/20 05/16/20 Range/Units 14:28 16:58 19:42 Potassium 5.2 H (3.5-5.1) mmol/L BUN (9-20) mg/dL Creatinine (0.66-1.25) mg/dL Glucose (74-99) mg/dL POC Glucose (mg/dL) 222 H (75-99) mg/dL Iron (65-175) ug/dL % Saturation (15.00-50.00) Procalcitonin 0.35 H (0.02-0.09) ng/mL 05/16/20 05/17/20 05/17/20 Range/Units 20:02 02:01 06:10 Potassium (3.5-5.1) mmol/L BUN (9-20) mg/dL Creatinine (0.66-1.25) mg/dL Glucose (74-99) mg/dL POC Glucose (mg/dL) 343 H 108 H 149 H (75-99) mg/dL Iron (65-175) ug/dL % Saturation (15.00-50.00) Procalcitonin (0.02-0.09) ng/mL 05/17/20 Range/Units 07:28 Potassium (3.5-5.1) mmol/L BUN 53 H (9-20) mg/dL Creatinine 2.60 H (0.66-1.25) mg/dL Glucose 129 H (74-99) mg/dL POC Glucose (mg/dL) (75-99) mg/dL Iron (65-175) ug/dL % Saturation (15.00-50.00) Procalcitonin (0.02-0.09) ng/mL Assessment and Plan Plan: 1 Shortness of breath, which may relate to underlying congestive heart failure, and/or pneumonia. The patient was given a combination of cefepime and vancomycin. The patient has cardiomegaly and extensive consolidation of the left lung and addition to infiltration of the right lung base along with pulmonary vascular congestion. Rule out CHF. Rule out superimposed pneumonia. His proBNP level at time of admission was 14,200. 2 Mental status changes, improved. The patient is communicating and the patient is awake and oriented 3. 3 History of essential hypertension. 4 History of obstructive sleep apnea syndrome. 5 History of osteoarthritis. 6 History of essential hypertension. 7 History of gastroesophageal reflux disease. 8 History of diabetes mellitus. 9 Prior history of CVA. Patient has no deficits for now. 10 History of CAD with prior stent placement. Plan: The patient will be started on Lasix 40 mg IV every 12 hours. Continue cefepime and vancomycin Keep the Wood catheter in place Continue BiPAP for respiratory support as the patient had significant respiratory acidosis acute on top of chronic on his blood gases Echocardiogram has been done this morning and results are still pending Urine drug screen is positive for cannabis COVID19 testing was negative Noncontrast CAT scan of the chest We'll ask nephrology to evaluate the patient We'll continue to follow.
[2020-05-17 11:47] LABS: Glucose,Whole Blood 172 mg/dL (75-99)
[2020-05-17] MEDS: FUROSEMIDE 10 MG/ML 4 ML VIAL IV SCH ×2 (12:12→21:16)
[2020-05-17] MEDS: SODIUM FERRIC GLUCONAT-SUCROSE 125 MG in SODIUM CHLORIDE 0.9% 100 ML IVPB SCH (12:12)
--- NOTE | 2020-05-17 13:00 | ECHOF ---
Referral Reason:cad MEASUREMENTS -------- HEIGHT: 175.3 cm WEIGHT: 118.4 kg BP: 175/75 MV E Alex: 1.24 m/s MV DecT: 163 ms MV A Alex: 0.88 m/s MV E/A Ratio: 1.40 FINDINGS -------- TDS Study even with Lumason: unable to comment on EF. The aortic valve was not well visualized. The mitral valve was not well visualized. The tricuspid valve was not well visualized. The pulmonic valve was not well visualized. CONCLUSIONS -------- 1. TDS Study even with Lumason: unable to comment on EF. 2. The aortic valve was not well visualized. 3. The mitral valve was not well visualized. 4. The tricuspid valve was not well visualized. 5. The pulmonic valve was not well visualized. PROTEIN SCIENTIST: Lori Yan RDCS
--- NOTE | 2020-05-17 14:52 | CT ---
EXAMINATION TYPE: CT chest wo con DATE OF EXAM: 05/17/2020 COMPARISON: Chest x-ray earlier today studies. CT abdomen and pelvis November 14, 2019. HISTORY: pneumonia CT DLP: 721.3 mGycm. Automated Exposure Control for Dose Reduction was Utilized. TECHNIQUE: CT scan of the thorax is performed without IV contrast. FINDINGS: LUNGS: Persistent elevated left hemidiaphragm. Small to tiny bilateral pleural effusions. Associated compressive atelectasis and/or less likely consolidation in the left lung base posteriorly. Multifoca l groundglass opacities and areas of consolidation in the upper lungs bilaterally with additional are as of involvement in the right middle lobe and lower lobe. MEDIASTINUM: Mediastinum is shifted to the right similar to November 14, [address] Lack of IV contrast is noted to limit evaluation for mediastinal and especially hilar adenopathy. There are no d efinitive greater than 1 cm hilar or mediastinal lymph nodes. No pericardial effusion is seen. Heart size upper limits of normal. Moderate to severe coronary artery calcification and/or stents. Correlat e clinically. Prominent main pulmonary artery greater than 3.0 cm/28. CT findings consistent with und erlying pulmonary hypertension. OTHER: Prominence of the retroperitoneal fat in the visualized upper abdomen.. IMPRESSION: Stable elevated left hemidiaphragm and right-sided mediastinal shift. Confirmation of sma ll to tiny bilateral pleural effusions. There is multifocal multilobar areas of acute groundglass [place] consolidation involving left upper lobe and the right upper, middle, and lower lobes consistent with multifocal bilateral pneumonia.
[2020-05-17] MEDS: HYDROcodone/APAP 5-325MG 1 EACH TAB PO PRN (14:56)
[2020-05-17] MEDS: DICYCLOMINE 20 MG TAB PO PRN (14:56)
--- NOTE | 2020-05-17 14:58 | P.PN ---
Subjective Progress Note Date: 05/17/20 This is 70-year-old gentleman admitted with multiple medical issues in a patient with history of fungal overgrowth syndrome recently completed Diflucan treatment as ordered per aracelis Collins GI specialist. Patient also follows closely outpatient with , GI, locally. Complains of chronic right upper quadrant abdominal pain, no nausea, no vomiting, no diarrhea. Less shortness of breath today.Maintaining O2 sats in the 90s on 15 L high flow nasal cannula. Pro-calcitonin elevated at 0.35. Chest x-ray reporting cardiomegaly, perihilar and infrahilar opacity, left lower lung consolidation, small left and trace right pleural effusions .maintained on broad-spectrum antibiotic coverage with IV cefepime. Afebrile .Potassium has improved, down to 4.8. Renal function, no significant change from yesterday, BUN 53, creatinine 2.6. Echo pending. Consuming 25-100% of meals, blood sugars uncontrolled. Receiving IV ferritin. Objective - Vital Signs Vital signs: Vital Signs Temp 98.4 F 05/17/20 03:46 Pulse 77 05/17/20 03:46 Resp 18 05/17/20 03:46 BP 175/75 05/17/20 03:46 Pulse Ox 94 L 05/17/20 03:46 Intake & Output 05/16/20 05/17/20 05/17/20 18:59 06:59 18:59 Intake Total 720 Output Total 900 710 300 Balance -180 -710 -300 Weight 118.5 kg Intake: Oral 720 Output: Urine 900 710 300 Uretheral (Wood) 150 300 Other: Voiding Method Indwelling Catheter Indwelling Catheter - Exam GENERAL: Sitting up in bed, alert and oriented 3, respiratory effort increased, on high flow nasal cannula HEENT: Normocephalic, atraumatic ,Pupils are round and equally reacting to light. EOMI. No scleral icterus. No conjunctival pallor. CARDIOVASCULAR: S1 and S2 present. Systolic murmur. PULMONARY: Scattered bilateral rhonchi with bibasilar crackles. ABDOMEN: Soft nondistended, right upper quadrant tenderness ,normoactive bowel sounds. No palpable organomegaly. EXTREMITIES: No cyanosis, clubbing, trace pedal edema. NEUROLOGICAL: Gross neurological examination did not reveal any focal deficits. SKIN: Warm and dry, No rashes. - Labs CBC & Chem 7: 05/16/20 03:16 05/17/20 07:28 Labs: Abnormal Lab Results - Last 24 Hours (Table) 05/16/20 05/16/20 05/16/20 Range/Units 07:18 11:40 14:22 Potassium 5.9 H 5.4 H (3.5-5.1) mmol/L BUN 50 H (9-20) mg/dL Creatinine 2.55 H (0.66-1.25) mg/dL Glucose 154 H (74-99) mg/dL POC Glucose (mg/dL) 210 H (75-99) mg/dL Iron (65-175) ug/dL % Saturation (15.00-50.00) Total Protein 6.2 L (6.3-8.2) g/dL Procalcitonin (0.02-0.09) ng/mL 05/16/20 05/16/20 05/16/20 Range/Units 14:22 14:28 16:58 Potassium (3.5-5.1) mmol/L BUN (9-20) mg/dL Creatinine (0.66-1.25) mg/dL Glucose (74-99) mg/dL POC Glucose (mg/dL) 222 H (75-99) mg/dL Iron 34 L (65-175) ug/dL % Saturation 11.93 L (15.00-50.00) Total Protein (6.3-8.2) g/dL Procalcitonin 0.35 H (0.02-0.09) ng/mL 05/16/20 05/16/20 05/17/20 Range/Units 19:42 20:02 02:01 Potassium 5.2 H (3.5-5.1) mmol/L BUN (9-20) mg/dL Creatinine (0.66-1.25) mg/dL Glucose (74-99) mg/dL POC Glucose (mg/dL) 343 H 108 H (75-99) mg/dL Iron (65-175) ug/dL % Saturation (15.00-50.00) Total Protein (6.3-8.2) g/dL Procalcitonin (0.02-0.09) ng/mL 05/17/20 Range/Units 06:10 Potassium (3.5-5.1) mmol/L BUN (9-20) mg/dL Creatinine (0.66-1.25) mg/dL Glucose (74-99) mg/dL POC Glucose (mg/dL) 149 H (75-99) mg/dL Iron (65-175) ug/dL % Saturation (15.00-50.00) Total Protein (6.3-8.2) g/dL Procalcitonin (0.02-0.09) ng/mL Assessment and Plan Assessment: -Acute hypoxic, hypercapnic respiratory failure secondary to restrictive lung disease along with possible left lower lobe pneumonia and possibly acute CHF exacerbation, diastolic dysfunction, and THC . VQ low probability, chest CT pending. -Acute Metabolic and toxic encephalopathy secondary to infection and CO2 retention, improving -Hyperkalemia , multifactorial, secondary to urinary retention, medications- losartan, chronic kidney disease -Chronic kidney disease, stage IV, baseline 2.3 to 2.7. -Anemia of chronic disease -Urinary retention requiring Wood catheter placement, Flomax added. -Chronic right upper quadrant pain in a patient with history of fungal overgrowth syndrome, recently completed Diflucan treatment as ordered per aracelis Collins. -Essential hypertension -Obstructive sleep apnea possible severe restrictive lung disease -Gastroesophageal reflux disease -Type 2 diabetes mellitus, hyperglycemic, possibly steroid induced, hemoglobin A1c ordered. -Coronary artery disease with prior stents -Severe hyperkalemia -Diabetic peripheral neuropathy -THC detected in toxicology screening. -Paroximal atrial fibrillation, currently not on anticoagulation-etiology unclear at this time. Plan: Continue on current medication regime ,monitoring and symptomatic treatment. Chest CT pending. Continue on broad-spectrum antibiotics, sputum cultures pending. Flomax added to med regimen. Losartan remains on hold. Echo pending. Diuresing on Lasix IV push, with close monitoring of I&O's. Hemoglobin A1c ordered. Lantus added to med regimen close monitoring of Accu-Cheks. Patient will need to follow up with GI Dr. Angel, outpatient in 2 weeks upon discharge. The impression and plan of care has been dictated as directed. : I performed a history and examination of this patient, discussed the same with the dictator. I agree with the dictator's note ,documented as a scribe. Any additional findings or plans will be noted.
--- NOTE | 2020-05-17 15:16 | P.PN ---
Subjective HISTORY OF PRESENTING ILLNESS This is a pleasant 70-year-old male past medical history significant for coronary artery disease status post PCI of the proximal mid and distal RCA in 2018, hypertension, dyslipidemia, paroxysmal atrial fibrillation on Eliquis 2.5 mg secondary to GI bleeding with moderate gastritis noted on EGD, diabetes mellitus, TIA, chronic kidney disease, COPD, aortic stenosis and chronic diastolic dysfunction and former nicotine dependence. He follows in the office with Dr. Eng. He is seen and examined laying flat resting comfortably in bed in no acute distress. He is much more alert and communicative today. He is currently feeling short of breath. He has no chest pain, dizziness or palpitations. He is unsure of his medication regimen or what he takes daily. Blood pressure 159/70 heart rate 88 afebrile and maintaining oxygen saturation on high flow nasal cannula. Laboratory data reviewed, sodium 140, potassium 4.8, creatinine 2.6 and magnesium 1.9. Currently maintained on amlodipine 10 mg daily, aspirin 81 mg daily, atorvastatin 40 mg daily, Coreg 25 mg twice a day, Lasix 40 mg IV twice a day, hydralazine 25 mg 3 times a day and IV antibiotics. Repeat chest xray today reveals infrahilar opacities likely related to infectious process. PHYSICAL EXAMINATION CONSTITUTIONAL: No apparent distress. HEENT: Head is normocephalic. Pupils are equal, round. Sclerae anicteric. Mucous membranes of the mouth are moist. No JVD. No carotid bruit. CHEST EXAMINATION: Scattered rhonchi. No chest wall tenderness is noted on palpation or with deep breathing. HEART EXAMINATION: Regular rate and rhythm. S1, S2 heard. Systolic ejection murmur at the base, no gallops or rub. EXTREMITIES: 2+ peripheral pulses, no lower extremity edema and no calf tenderness. ASSESSMENT Chest pain Altered mental status Hallucinations Hyperkalemia Pneumonia COPD Chronic kidney disease Coronary artery disease status post PCI of the RCA 2018 Aortic stenosis Paroxysmal atrial fibrillation not currently on anticoagulation for unknown reason. GI bleeding in 10/2018 but was discharged on Eliquis. Pt unable to verbalize at this time Hypertension Dyslipidemia Peripheral vascular disease s/p left carotid endartectomy PLAN An acute coronary event has been ruled out. Echocardiogram has been obtained and will be reviewed. Pt scheduled to undergo chest CT. Further recommendations to follow based on clinical course. Nurse Practitioner note has been reviewed, I agree with a documented findings and plan of care. Patient was seen and examined. Objective - Vital Signs Vital signs: Vital Signs Temp 98.5 F 05/17/20 08:00 Pulse 88 05/17/20 08:35 Resp 22 05/17/20 08:00 BP 159/70 05/17/20 08:00 Pulse Ox 93 L 05/17/20 08:00 Intake & Output 05/16/20 05/17/20 05/17/20 18:59 06:59 18:59 Intake Total 720 240 Output Total 449 096 0131 Balance -180 -710 -885 Weight 118.5 kg Intake: Oral 720 240 Output: Urine 982 589 8951 Uretheral (Wood) 150 300 Other: Voiding Method Indwelling Catheter Indwelling Catheter Indwelling Catheter - Labs CBC & Chem 7: 05/16/20 03:16 05/17/20 07:28 Labs: Abnormal Lab Results - Last 24 Hours (Table) 05/16/20 05/16/20 05/16/20 Range/Units 14:22 14:22 14:28 Potassium 5.4 H (3.5-5.1) mmol/L BUN (9-20) mg/dL Creatinine (0.66-1.25) mg/dL Glucose (74-99) mg/dL POC Glucose (mg/dL) (75-99) mg/dL Iron 34 L (65-175) ug/dL % Saturation 11.93 L (15.00-50.00) Procalcitonin 0.35 H (0.02-0.09) ng/mL 05/16/20 05/16/20 05/16/20 Range/Units 16:58 19:42 20:02 Potassium 5.2 H (3.5-5.1) mmol/L BUN (9-20) mg/dL Creatinine (0.66-1.25) mg/dL Glucose (74-99) mg/dL POC Glucose (mg/dL) 222 H 343 H (75-99) mg/dL Iron (65-175) ug/dL % Saturation (15.00-50.00) Procalcitonin (0.02-0.09) ng/mL 05/17/20 05/17/20 05/17/20 Range/Units 02:01 06:10 07:28 Potassium (3.5-5.1) mmol/L BUN 53 H (9-20) mg/dL Creatinine 2.60 H (0.66-1.25) mg/dL Glucose 129 H (74-99) mg/dL POC Glucose (mg/dL) 108 H 149 H (75-99) mg/dL Iron (65-175) ug/dL % Saturation (15.00-50.00) Procalcitonin (0.02-0.09) ng/mL 05/17/20 Range/Units 11:43 Potassium (3.5-5.1) mmol/L BUN (9-20) mg/dL Creatinine (0.66-1.25) mg/dL Glucose (74-99) mg/dL POC Glucose (mg/dL) 172 H (75-99) mg/dL Iron (65-175) ug/dL % Saturation (15.00-50.00) Procalcitonin (0.02-0.09) ng/mL
[2020-05-17 16:51] LABS: Glucose,Whole Blood 152 mg/dL (75-99)
[2020-05-17] MEDS: hydrALAZINE HCL 25 MG TAB PO SCH ×2 (17:39→21:14)
[2020-05-17] MEDS: INSULIN DETEMIR (LEVEMIR) 100 UNIT/ML SYR SQ SCH (18:35)
[2020-05-17 20:06] LABS: Glucose,Whole Blood 145 mg/dL (75-99)
[2020-05-17] MEDS: ACETAMINOPHEN TAB 325 MG TAB PO PRN (21:14)
[2020-05-17 21:54] LABS: Hemoglobin A1C 6.5 % (4.0-6.0)
[2020-05-18 01:58] LABS: Glucose,Whole Blood 100 mg/dL (75-99)
[2020-05-18] MEDS: CEFEPIME 1 GM in SODIUM CHLORIDE 0.9% 50 ML IVPB SCH ×2 (03:18→17:06)
[2020-05-18] MEDS: HYDROcodone/APAP 5-325MG 1 EACH TAB PO PRN ×2 (05:34→17:13)
[2020-05-18 06:00] LABS: Glucose,Whole Blood 88 mg/dL (75-99)
[2020-05-18] MEDS: INSULIN ASPART (NovoLOG) 100 UNIT/ML VIAL SQ SCH ×4 (06:52→20:46)
[2020-05-18] MEDS: BUDESONIDE 0.5 MG/2 ML NEBU INHALATION SCH ×2 (07:37→18:59)
[2020-05-18 07:48] LABS: Calcium 8.5 mg/dL (8.4-10.2); Magnesium 1.7 mg/dL (1.6-2.3); Potassium 4.7 mmol/L (3.5-5.1)
[2020-05-18] MEDS: ATORVASTATIN 40 MG TAB PO SCH (08:44)
[2020-05-18] MEDS: FAMOTIDINE 20 MG TAB PO SCH (08:44)
[2020-05-18] MEDS: ASPIRIN 81 MG PO SCH (08:45)
[2020-05-18] MEDS: HEPARIN SODIUM,PORCINE 5,000 UNIT/ML 1 ML VIAL SQ SCH (08:45)
[2020-05-18] MEDS: GLIMEPIRIDE 1 MG TAB PO SCH (08:45)
[2020-05-18] MEDS: FUROSEMIDE 10 MG/ML 4 ML VIAL IV SCH ×2 (08:45→20:46)
[2020-05-18] MEDS: carvediloL 12.5 MG TAB PO SCH ×2 (08:45→20:45)
[2020-05-18] MEDS: hydrALAZINE HCL 25 MG TAB PO SCH (08:45)
[2020-05-18] MEDS: amLODIPine 10 MG TAB PO SCH (08:45)
[2020-05-18] MEDS: GABAPENTIN 300 MG CAP PO SCH ×2 (08:45→20:45)
[2020-05-18] MEDS: CITALOPRAM HYDROBROMIDE 20 MG TAB PO SCH (08:45)
[2020-05-18] MEDS: TAMSULOSIN 0.4 MG CAP.ER.24H PO SCH (08:45)
[2020-05-18] MEDS: DICYCLOMINE 20 MG TAB PO PRN ×2 (08:58→17:13)
--- NOTE | 2020-05-18 10:41 | P.PN ---
Subjective Progress Note Date: 05/18/20 70-year-old male, who presents to the emergency department, on 05/15/2020. The patient apparently has a history of chronic kidney disease, essential hypertension, diabetes mellitus, and COPD. He apparently presents to the emergency department with mental status changes. We saw the patient on the floor, and he was on BiPAP, with an IPAP of 14, EPAP of 5, and 50%. He apparently was complaining of hallucinations in the emergency department, and also was very unsteady on his feet, and did fall the day prior to admission. He apparently hit his head when he fell, but denied LOC. He also states that he sees one of the cardiologists, and has had coronary disease, with previous stent placement. He also admits to a diagnosis of congestive heart failure. The patient is awake and alert on the BiPAP. It is a bit difficult getting history from him because he's got the BiPAP in place. He is feeling better he tells me. Currently, his temperature is 98.2, heart rate 73, respiratory rate between 18 and 19 breaths per minute, and blood pressure is 159/74 with a mean of 102. His saturations are between 94 to 97% on BiPAP. Current labs include a white count of 10.7, hemoglobin 9.8, hematocrit 29.9, and a platelet count of 119,000. Sodium is 138, potassium 5.9, chlorides 102, CO2 28, anion gap 8, BUN 50, and creatinine 2.55. Drug screen was positive for marijuana. His urinalysis is essentially negative. The chest x-rays in my opinion show evidence of cardiomegaly, and cephalization, consistent with vascular decompensation. The pulmonary perfusion study was low probability for pulmonary embolism. On 2020, the patient is being seen for a follow. This 70-year-old male patient has chronic kidney disease, stage IV with a baseline creatinine ranging between 2.73 and the patient came in with altered mental status and worsening shortness of breath. He was nonoliguric. Potassium level was elevated at 6.6 and then drop down to 5.9. Patient was noted to have some mild urinary retention of 400 mL before the Wood catheter insertion. He was initially placed on BiPAP. VQ scan a low probability. Echocardiogram from April 2019 was a preserved LV function. On today's evaluation, the patient remains on BiPAP at a pressure of 14/5 cm of water with an FiO2 of 40%. He is utilizing a full face mask and is quite synchronous and comfortable while being on a BiPAP treatment. He is looking and slightly less short of breath compared to yesterday. His blood work today shows a BUN of 53 with a creatinine of 2.6 which is compatible to yesterday. Potassium level has dropped down to 4.8. The patient's chest x-ray from today shows cardiomegaly and addition to some cephali zation. There is trace right-sided pleural effusion and there is some bilateral perihilar infiltrates. There is evidence of vascular decompensation. There may be also an extensive consolidation of the left lower lung. Left hemidiaphragm is more silhouetted on today's evaluation. The patient remains on IV cefepime as a broad-spectrum antibiotic coverage. The patient is on antibiotics and prot on serotonin level is at 0.35.. Ultrasound the Kidneys Showed No Evidence of Any Hydronephrosis On 05/17/2020 I'm seeing the patient for a follow-up. Dane is a very pleasant 70-year-old male patient with stage IV kidney disease who came in with acute hypoxic respiratory failure. He also had altered mental status along with shortness of breath. The patient's had an elevated potassium level that improved. He had urinary retention and a Wood catheter was inserted. I saw him in consultation yesterday. He was on a BiPAP. He was at a pressure of 14/5 cm of water and FiO2 40%. At that point, a CAT scan of the chest was ordered and he chose compressive atelectasis in the lung bases and small bilateral pleural effusions left more than right. Also, there was some limited patchy infiltration in lung bases bilaterally and this into the upper lobes consistent with multilobar pneumonia.. The left hemidiaphragm was elevated. Over the past 24 hours, the patient was covered with antibiotics and he was receiving a combination of cefepime and vancomycin. The patient also was subjected to diuretics 40 mg of Lasix every 12 hours and he is producing adequate amount of urine output and the patient is in a negative fluid balance.. His negative fluid balance of around 2 L since yesterday. He is improved and his FiO2 is also improved and the patient is currently down to 9 L of oxygen by nasal cannula and was taken off the BiPAP. Cultures are none for now. No angina. No palpitation. Creatinine from today is at 2.67 which is essentially pertinent compared to yesterday. Urine is unchanged. Rest of electrolytes are also unchanged. Objective - Vital Signs Vital signs: Vital Signs Temp 98.8 F 05/17/20 20:00 Pulse 64 05/18/20 07:50 Resp 17 05/18/20 03:26 BP 148/70 05/18/20 03:26 Pulse Ox 92 L 05/18/20 03:26 Intake & Output 05/17/20 05/18/20 05/18/20 18:59 06:59 18:59 Intake Total 720 240 480 Output Total 1425 1725 Balance -705 -1485 480 Weight 129.5 kg Intake: Oral 720 240 480 Output: Urine 1425 1725 Uretheral (Wood) 300 Other: Voiding Method Indwelling Catheter Indwelling Catheter - Exam Gen. appearance the patient is much more comfortable compared to yesterday. He is currently off the BiPAP on 9 L of oxygen by nasal cannula. HEENT examination is grossly unremarkable. Mucous membranes are moist. No oral lesions. Neck supple. Full range of motion. No adenopathy thyromegaly or neck vein distention. Cardiovascular examination reveals regular rhythm rate. S1-S2 normal. No S3 or S4. No discernible murmur noted. Heart rate is 73. Heart sounds are distant. Lungs reveal bilateral rhonchi and a few scattered crackles. No wheezes. Her sounds equal bilaterally. Breath sounds are diminished throughout. The patient continues to have crackles in the lung bases along with diminished breath on the lung bases bilaterally. Abdomen soft bowel sounds are heard. No masses or tenderness. Extremities are intact. Trace edema. No cyanosis or clubbing. Skin is without rash or lesion. Neurologic examination is brief but nonfocal. - Labs CBC & Chem 7: 05/16/20 03:16 05/18/20 07:02 Labs: Abnormal Lab Results - Last 24 Hours (Table) 05/16/20 05/17/20 05/17/20 Range/Units 03:16 11:43 16:50 BUN (9-20) mg/dL Creatinine (0.66-1.25) mg/dL Glucose (74-99) mg/dL POC Glucose (mg/dL) 172 H 152 H (75-99) mg/dL Hemoglobin A1c 6.5 H (4.0-6.0) % 05/17/20 05/18/20 05/18/20 Range/Units 20:04 01:57 07:02 BUN 56 H (9-20) mg/dL Creatinine 2.67 H (0.66-1.25) mg/dL Glucose 106 H (74-99) mg/dL POC Glucose (mg/dL) 145 H 100 H (75-99) mg/dL Hemoglobin A1c (4.0-6.0) % Assessment and Plan Plan: 1 Shortness of breath, which may relate to underlying congestive heart failure, and/or pneumonia. The patient was given a combination of cefepime and vancomycin. The patient has cardiomegaly and extensive consolidation of the left lung and addition to infiltration of the right lung base along with pulmonary vascular congestion. Rule out CHF. Rule out superimposed pneumonia. His proBNP level at time of admission was 14,200. 2 Mental status changes, improved. The patient is communicating and the patient is awake and oriented 3. 3 History of essential hypertension. 4 History of obstructive sleep apnea syndrome. 5 History of osteoarthritis. 6 History of essential hypertension. 7 History of gastroesophageal reflux disease. 8 History of diabetes mellitus. 9 Prior history of CVA. Patient has no deficits for now. 10 History of CAD with prior stent placement. Plan: Continue Lasix 40 mg IV every 12 hours. Continue cefepime and vancomycin Keep the Wood catheter in place and monitor the urine output Continue BiPAP as needed and the patient is currently on 9 L of oxygen by nasal cannula Echocardiogram has been done and it showed technically difficult study with the left ventricular ejection fraction could not be estimated and this was essentially very poor study. Urine drug screen is positive for cannabis COVID19 testing was negative Noncontrast CAT scan of the chest was noted and the patient has some patchy bilateral pulmonary infiltrates and better pleural effusion left more than right We'll ask nephrology to evaluate the patient We'll continue to follow. Clinically improving. We'll continue to follow.
[2020-05-18] MEDS: SODIUM FERRIC GLUCONAT-SUCROSE 125 MG in SODIUM CHLORIDE 0.9% 100 ML IVPB SCH (10:45)
--- NOTE | 2020-05-18 10:53 | P.PN ---
Subjective Patient is seen in follow-up for chronic kidney disease and hyperkalemia. Patient has chronic kidney disease stage IV with baseline creatinine in the range of 2.5-3. Renal function stable. Nonoliguric. Denies chest pain or shortness of breath. Currently on 15 L high flow nasal cannula. Oral intake fair. No active complaints. Vital signs are stable. General: The patient appeared well nourished and normally developed. HEENT: Head exam is unremarkable. Neck is without jugular venous distension. LUNGS: Breath sounds decreased. HEART: Rate and Rhythm are regular. ABDOMEN: Soft, nontender. EXTREMITITES: Trace edema. Objective - Vital Signs Vital signs: Vital Signs Temp 98.4 F 05/18/20 08:00 Pulse 64 05/18/20 08:00 Resp 20 05/18/20 08:00 BP 173/77 05/18/20 08:00 Pulse Ox 96 05/18/20 08:00 Intake & Output 05/17/20 05/18/20 05/18/20 18:59 06:59 18:59 Intake Total 720 240 480 Output Total 1425 1725 Balance -705 -1485 480 Weight 129.5 kg Intake: Oral 720 240 480 Output: Urine 1425 1725 Uretheral (Wood) 300 Other: Voiding Method Indwelling Catheter Indwelling Catheter Indwelling Catheter - Labs CBC & Chem 7: 05/16/20 03:16 05/18/20 07:02 Labs: Abnormal Lab Results - Last 24 Hours (Table) 05/16/20 05/17/20 05/17/20 Range/Units 03:16 11:43 16:50 BUN (9-20) mg/dL Creatinine (0.66-1.25) mg/dL Glucose (74-99) mg/dL POC Glucose (mg/dL) 172 H 152 H (75-99) mg/dL Hemoglobin A1c 6.5 H (4.0-6.0) % 05/17/20 05/18/20 05/18/20 Range/Units 20:04 01:57 07:02 BUN 56 H (9-20) mg/dL Creatinine 2.67 H (0.66-1.25) mg/dL Glucose 106 H (74-99) mg/dL POC Glucose (mg/dL) 145 H 100 H (75-99) mg/dL Hemoglobin A1c (4.0-6.0) % Assessment and Plan Plan: Assessment: 1. Chronic kidney disease stage IV with baseline creatinine in the range of 2.5-3. Renal function stable. Etiology is diabetic kidney disease no hydronephrosis noted on kidney ultrasound.. 2. Hyperkalemia secondary to chronic kidney disease, urinary retention and losartan. Potassium now normal. 3. Urinary retention status post Wood catheter placement. On Flomax. 4. Hypertension with chronic kidney disease. 5. Diabetes mellitus. 6. Anemia of chronic kidney disease. Iron deficiency noted. 7. Volume overload. Improving with diuresis. Plan: Maintain Wood catheter. Maintain IV Lasix. Continue to monitor renal function and urine output. Continue to hold losartan. IV iron 3 doses. Second dose today. Increase hydralazine to 50 mg 3 times daily. To be held for systolic blood pressure less than 125.
[2020-05-18] MEDS: INSULIN DETEMIR (LEVEMIR) 100 UNIT/ML SYR SQ SCH (10:57)
[2020-05-18 11:56] LABS: Glucose,Whole Blood 177 mg/dL (75-99)
[2020-05-18] MEDS: APIXABAN 2.5 MG TABLET PO SCH ×2 (12:37→20:45)
--- NOTE | 2020-05-18 14:35 | P.PN ---
Subjective HISTORY OF PRESENTING ILLNESS This is a pleasant 70-year-old male past medical history significant for coronary artery disease status post PCI of the proximal mid and distal RCA in 2018, hypertension, dyslipidemia, paroxysmal atrial fibrillation on Eliquis 2.5 mg secondary to GI bleeding with moderate gastritis noted on EGD, diabetes mellitus, TIA, chronic kidney disease, COPD, aortic stenosis and chronic diastolic dysfunction and former nicotine dependence. He follows in the office with Dr. Eng. He is seen and examined resting comfortably laying flat in bed. He denies worsening shortness of breath, chest pain, dizziness or palpitations. Blood pressure 154/70 heart rate 60 afebrile and maintaining oxygen saturation on high flow nasal cannula. Laboratory data reviewed, sodium 139, potassium 4.7, creatinine 2.[address] chest reveals a stable elevated left hemidiaphragm and right sided mediastinal shift, confirmation of small to tiny bilateral pleural effusions with multifocal multilobular areas of acute grou ndglass opacity consolidation involving the left upper lobe and right upper middle and lower lobes consistent with multifocal bilateral pneumonia. He is currently maintained on amlodipine 10 mg daily, aspirin 81 mg daily, atorvastatin 40 mg daily, Coreg 25 mg twice a day, Lasix 40 mg IV twice a day per nephrology and hydralazine 50 mg 3 times a day. PHYSICAL EXAMINATION CONSTITUTIONAL: No apparent distress. HEENT: Head is normocephalic. Pupils are equal, round. Sclerae anicteric. Mucous membranes of the mouth are moist. No JVD. No carotid bruit. CHEST EXAMINATION: Scattered rhonchi. No chest wall tenderness is noted on palpation or with deep breathing. HEART EXAMINATION: Regular rate and rhythm. S1, S2 heard. Systolic ejection murmur at the base, no gallops or rub. EXTREMITIES: 2+ peripheral pulses, no lower extremity edema and no calf tenderness. ASSESSMENT Chest pain Altered mental status Hallucinations Hyperkalemia Pneumonia COPD Chronic kidney disease Coronary artery disease status post PCI of the RCA 2018 Aortic stenosis Paroxysmal atrial fibrillation not currently on anticoagulation for unknown reason. GI bleeding in 10/2018 but was discharged on Eliquis. Pt unable to v erbalize at this time Hypertension Dyslipidemia Peripheral vascular disease s/p left carotid endartectomy PLAN Resume Eliquis 2.5 mg twice a day for thromboembolic protection due to atrial fibrillation. Clinically he is not in acute heart failure. We will follow along as needed, please call with further questions or concerns. Nurse Practitioner note has been reviewed, I agree with a documented findings and plan of care. Patient was seen and examined. Objective - Vital Signs Vital signs: Vital Signs Temp 98.4 F 05/18/20 08:00 Pulse 60 05/18/20 14:00 Resp 20 05/18/20 14:00 BP 154/70 05/18/20 12:00 Pulse Ox 93 L 05/18/20 12:00 Intake & Output 05/17/20 05/18/20 05/18/20 18:59 06:59 18:59 Intake Total 720 240 960 Output Total 1425 1725 950 Balance -705 -1485 10 Weight 129.5 kg Intake: Oral 720 240 960 Output: Urine 1425 1725 950 Uretheral (Wood) 300 Other: Voiding Method Indwelling Catheter Indwelling Catheter Indwelling Catheter - Labs CBC & Chem 7: 05/16/20 03:16 05/18/20 07:02 Labs: Abnormal Lab Results - Last 24 Hours (Table) 05/16/20 05/17/20 05/17/20 Range/Units 03:16 16:50 20:04 BUN (9-20) mg/dL Creatinine (0.66-1.25) mg/dL Glucose (74-99) mg/dL POC Glucose (mg/dL) 152 H 145 H (75-99) mg/dL Hemoglobin A1c 6.5 H (4.0-6.0) % 05/18/20 05/18/20 05/18/20 Range/Units 01:57 07:02 11:55 BUN 56 H (9-20) mg/dL Creatinine 2.67 H (0.66-1.25) mg/dL Glucose 106 H (74-99) mg/dL POC Glucose (mg/dL) 100 H 177 H (75-99) mg/dL Hemoglobin A1c (4.0-6.0) %
--- NOTE | 2020-05-18 16:25 | P.PN ---
Subjective Progress Note Date: 05/18/20 This is 70-year-old gentleman admitted with multiple medical issues in a patient with history of fungal overgrowth syndrome recently completed Diflucan treatment as ordered per aracelis Collins GI specialist. Patient also follows closely outpatient with , GI, locally. Complains of chronic right upper quadrant abdominal pain, no nausea, no vomiting, no diarrhea. Less shortness of breath today.Maintaining O2 sats in the 90s on 15 L high flow nasal cannula. Pro-calcitonin elevated at 0.35. Chest x-ray reporting cardiomegaly, perihilar and infrahilar opacity, left lower lung consolidation, small left and trace right pleural effusions .maintained on broad-spectrum antibiotic coverage with IV cefepime. Afebrile .Potassium has improved, down to 4.8. Renal function, no significant change from yesterday, BUN 53, creatinine 2.6. Echo pending. Consuming 25-100% of meals, blood sugars uncontrolled. Receiving IV ferritin. 05/18/20 maintained on vancomycin and cefepime, afebrile. diuresing well on Lasix IV push with 24-hour I&O reflecting a negative fluid balance. Renal function stable. Potassium within normal limits. Receiving second dose of IV iron today. Chest CT reported multifocal, multilobar acute groundglass opacities-multifocal bilateral pneumonia, stable elevated left hemidiaphragm, right mediastinal shift similar to prior abdominal CT of 11/14/2019. Echo poor study, very limited/unreadable. Reports he feels better, slept well. Denies cough or shortness of breath. 15 L of high flow nasal cannula recently decreased to 10 L. Chronic abdominal pain lessening. Hypertensive, hydralazine increased. Objective - Vital Signs Vital signs: Vital Signs Temp 98.4 F 05/18/20 08:00 Pulse 60 05/18/20 14:00 Resp 20 05/18/20 14:00 BP 154/70 05/18/20 12:00 Pulse Ox 93 L 05/18/20 12:00 Intake & Output 05/17/20 05/18/20 05/18/20 18:59 06:59 18:59 Intake Total 720 240 960 Output Total 1425 1725 950 Balance -705 -1485 10 Weight 129.5 kg Intake: Oral 720 240 960 Output: Urine 1425 1725 950 Uretheral (Wood) 300 Other: Voiding Method Indwelling Catheter Indwelling Catheter Indwelling Catheter - Exam GENERAL: Sitting up at side of bed, alert and oriented 3, on high flow nasal cannula HEENT: Normocephalic, atraumatic ,Pupils are round and equally reacting to light. EOMI. No scleral icterus. No conjunctival pallor. CARDIOVASCULAR: S1 and S2 present. Systolic murmur. PULMONARY: Good air entry, no crackles ABDOMEN: Soft nondistended, improving right upper quadrant tenderness ,normoactive bowel sounds. No palpable organomegaly. EXTREMITIES: No cyanosis, clubbing, trace pedal edema. NEUROLOGICAL: Gross neurological examination did not reveal any focal deficits. SKIN: Warm and dry, No rashes. - Labs CBC & Chem 7: 05/16/20 03:16 05/18/20 07:02 Labs: Abnormal Lab Results - Last 24 Hours (Table) 05/16/20 05/17/20 05/17/20 Range/Units 03:16 16:50 20:04 BUN (9-20) mg/dL Creatinine (0.66-1.25) mg/dL Glucose (74-99) mg/dL POC Glucose (mg/dL) 152 H 145 H (75-99) mg/dL Hemoglobin A1c 6.5 H (4.0-6.0) % 05/18/20 05/18/20 05/18/20 Range/Units 01:57 07:02 11:55 BUN 56 H (9-20) mg/dL Creatinine 2.67 H (0.66-1.25) mg/dL Glucose 106 H (74-99) mg/dL POC Glucose (mg/dL) 100 H 177 H (75-99) mg/dL Hemoglobin A1c (4.0-6.0) % Assessment and Plan Assessment: -Acute hypoxic, hypercapnic respiratory failure secondary to restrictive lung disease along with multifocal bilateral pneumonia, bilateral pleural effusions- pulmonary vascular congestion ,possibly acute CHF exacerbation, diastolic dys function, and THC . VQ low probability. -Acute Metabolic and toxic encephalopathy secondary to infection and CO2 retention, improving -Hyperkalemia , multifactorial, secondary to urinary retention, medications- losartan, chronic kidney disease, resolved -Chronic kidney disease, stage IV, baseline 2.3 to 2.7. -Anemia of chronic disease -Urinary retention requiring Wood catheter placement, Flomax added. -Chronic right upper quadrant pain in a patient with history of fungal overgrowth syndrome, recently completed Diflucan treatment as ordered per aracelis Collins. -Essential hypertension -Obstructive sleep apnea possible severe restrictive lung disease -Gastroesophageal reflux disease -Type 2 diabetes mellitus, hyperglycemic, possibly steroid induced, hemoglobin A1c 6.5. -Coronary artery disease with prior stents -Severe hyperkalemia -Diabetic peripheral neuropathy -THC detected in toxicology screening. -Paroximal atrial fibrillation, currently not on anticoagulation-etiology unclear at this time. Plan: Continue on current medication regime ,monitoring and symptomatic treatment. Maintain IV antibiotics of cefepime and vancomycin, diuretics. Continue holding Losartan. Close monitoring of renal function with repeat labs ordered for a.m. Patient is weaning down on his high flow nasal cannula, PT/OT. Follow closely with both pulmonary and nephrology. The impression and plan of care has been dictated as directed. : I performed a history and examination of this patient, discussed the same with the dictator. I agree with the dictator's note ,documented as a scribe. Any additional findings or plans will be noted.
[2020-05-18 16:56] LABS: Glucose,Whole Blood 107 mg/dL (75-99)
[2020-05-18] MEDS: hydrALAZINE HCL 50 MG TAB PO SCH ×2 (17:14→20:46)
[2020-05-18 19:45] LABS: Glucose,Whole Blood 234 mg/dL (75-99)
[2020-05-18] MEDS: ACETAMINOPHEN TAB 325 MG TAB PO PRN (20:45)
[2020-05-19] MEDS: HYDROcodone/APAP 5-325MG 1 EACH TAB PO PRN ×2 (01:01→14:07)
[2020-05-19 01:53] LABS: Glucose,Whole Blood 91 mg/dL (75-99)
[2020-05-19] MEDS: CEFEPIME 1 GM in SODIUM CHLORIDE 0.9% 50 ML IVPB SCH ×2 (02:28→16:09)
[2020-05-19 06:14] LABS: Glucose,Whole Blood 122 mg/dL (75-99)
[2020-05-19] MEDS: INSULIN ASPART (NovoLOG) 100 UNIT/ML VIAL SQ SCH ×4 (06:56→21:00)
[2020-05-19 07:30] LABS: Basophils % (A) 0 %; Eosinophils # (A) 0.2 k/uL (0-0.7); Eosinophils % (A) 3 %; HCT 31.7 % (39.0-53.0); HGB 10.5 gm/dL (13.0-17.5); Lymphocytes % (A) 14 %; MCH 28.9 pg (25.0-35.0); MCHC 33.2 g/dL (31.0-37.0); MCV 87.1 fL (80.0-100.0); Mean Platelet Volume 8.1; Monocytes % (A) 13 %; Neutrophils # (A) 5.1 k/uL (1.3-7.7); Neutrophils % (A) 68 %; Platelet Count 136 k/uL (150-450); RBC 3.63 m/uL (4.30-5.90); RDW 14.5 % (11.5-15.5); WBC 7.4 k/uL (3.8-10.6)
[2020-05-19 07:54] LABS: Calcium 8.1 mg/dL (8.4-10.2); Magnesium 1.6 mg/dL (1.6-2.3); Potassium 4.8 mmol/L (3.5-5.1)
[2020-05-19] MEDS ORDERED: VANCOMYCIN 2,000 MG in SODIUM CHLORIDE 0.9% 500 ML 500 ML IVPB ONE (09:00)
[2020-05-19] MEDS: SODIUM FERRIC GLUCONAT-SUCROSE 125 MG in SODIUM CHLORIDE 0.9% 100 ML IVPB SCH (09:32)
--- NOTE | 2020-05-19 10:06 | P.PN ---
Subjective Progress Note Date: 05/19/20 70-year-old male, who presents to the emergency department, on 05/15/2020. The patient apparently has a history of chronic kidney disease, essential hypertension, diabetes mellitus, and COPD. He apparently presents to the emergency department with mental status changes. We saw the patient on the floor, and he was on BiPAP, with an IPAP of 14, EPAP of 5, and 50%. He apparently was complaining of hallucinations in the emergency department, and also was very unsteady on his feet, and did fall the day prior to admission. He apparently hit his head when he fell, but denied LOC. He also states that he sees one of the cardiologists, and has had coronary disease, with previous stent placement. He also admits to a diagnosis of congestive heart failure. The patient is awake and alert on the BiPAP. It is a bit difficult getting history from him because he's got the BiPAP in place. He is feeling better he tells me. Currently, his temperature is 98.2, heart rate 73, respiratory rate between 18 and 19 breaths per minute, and blood pressure is 159/74 with a mean of 102. His saturations are between 94 to 97% on BiPAP. Current labs include a white count of 10.7, hemoglobin 9.8, hematocrit 29.9, and a platelet count of 119,000. Sodium is 138, potassium 5.9, chlorides 102, CO2 28, anion gap 8, BUN 50, and creatinine 2.55. Drug screen was positive for marijuana. His urinalysis is essentially negative. The chest x-rays in my opinion show evidence of cardiomegaly, and cephalization, consistent with vascular decompensation. The pulmonary perfusion study was low probability for pulmonary embolism. On 2020, the patient is being seen for a follow. This 70-year-old male patient has chronic kidney disease, stage IV with a baseline creatinine ranging between 2.73 and the patient came in with altered mental status and worsening shortness of breath. He was nonoliguric. Potassium level was elevated at 6.6 and then drop down to 5.9. Patient was noted to have some mild urinary retention of 400 mL before the Wood catheter insertion. He was initially placed on BiPAP. VQ scan a low probability. Echocardiogram from April 2019 was a preserved LV function. On today's evaluation, the patient remains on BiPAP at a pressure of 14/5 cm of water with an FiO2 of 40%. He is utilizing a full face mask and is quite synchronous and comfortable while being on a BiPAP treatment. He is looking and slightly less short of breath compared to yesterday. His blood work today shows a BUN of 53 with a creatinine of 2.6 which is compatible to yesterday. Potassium level has dropped down to 4.8. The patient's chest x-ray from today shows cardiomegaly and addition to some cephali zation. There is trace right-sided pleural effusion and there is some bilateral perihilar infiltrates. There is evidence of vascular decompensation. There may be also an extensive consolidation of the left lower lung. Left hemidiaphragm is more silhouetted on today's evaluation. The patient remains on IV cefepime as a broad-spectrum antibiotic coverage. The patient is on antibiotics and prot on serotonin level is at 0.35.. Ultrasound the Kidneys Showed No Evidence of Any Hydronephrosis On 05/18/2020 I'm seeing the patient for a follow-up. Dane is a very pleasant 70-year-old male patient with stage IV kidney disease who came in with acute hypoxic respiratory failure. He also had altered mental status along with shortness of breath. The patient's had an elevated potassium level that improved. He had urinary retention and a Wood catheter was inserted. I saw him in consultation yesterday. He was on a BiPAP. He was at a pressure of 14/5 cm of water and FiO2 40%. At that point, a CAT scan of the chest was ordered and he chose compressive atelectasis in the lung bases and small bilateral pleural effusions left more than right. Also, there was some limited patchy infiltration in lung bases bilaterally and this into the upper lobes consistent with multilobar pneumonia.. The left hemidiaphragm was elevated. Over the past 24 hours, the patient was covered with antibiotics and he was receiving a combination of cefepime and vancomycin. The patient also was subjected to diuretics 40 mg of Lasix every 12 hours and he is producing adequate amount of urine output and the patient is in a negative fluid balance.. His negative fluid balance of around 2 L since yesterday. He is improved and his FiO2 is also improved and the patient is currently down to 9 L of oxygen by nasal cannula and was taken off the BiPAP. Cultures are none for now. No angina. No palpitation. Creatinine from today is at 2.67 which is essentially pertinent compared to yesterday. Urine is unchanged. Rest of electrolytes are also unchanged. \ 3. Thousand 21, the patient is currently being seen in follow-up. He was on BiPAP overnight. I took him off the BiPAP this morning and I put him on 2 L about 2 by nasal cannula and his pulse 1290%. He is able to lay down with 10- 20 of the head of the bed elevation. He is diuresing adequately and he is in a negative fluid balance of at least 2 L over the past 24 hours. His BUN and creatinine are still stable. On today's blood work, the patient's BUN is at 55 with a creatinine of 2.77. Sodium is at 137 with a potassium of 4.8. The patient's white cell count is at 7.4. He remains on Lasix 40 mg IV every 12 hours. The patient is also on broad-spectrum antibiotics including a combination of cefepime and vancomycin. Cultures have been negative for now. The pro calcitonin level at time of admission was 0.35. He is awake and alert and oriented. He is a responding to the questions appropriately. His blood pressure is also stable. He remains on long-term anticoagulation with Eliquis 2.5 mg by mouth twice a day regarding his atrial fibrillation. Vancomycin trough was 19. He was afebrile this morning. Objective - Vital Signs Vital signs: Vital Signs Temp 98.0 F 05/18/20 20:35 Pulse 68 05/19/20 04:00 Resp 18 05/19/20 04:00 BP 140/63 05/19/20 04:00 Pulse Ox 95 05/19/20 04:00 Intake & Output 05/18/20 05/19/20 05/19/20 18:59 06:59 18:59 Intake Total 2460 180 Output Total 2250 1475 Balance 210 -1295 Weight 128 kg Intake: Oral 2460 180 Output: Urine 2250 1475 Other: Voiding Method Indwelling Catheter Indwelling Catheter # Bowel Movements 1 - Exam Gen. appearance the patient is much more comfortable compared to yesterday. He is currently 2 L about 2 by nasal cannula and his pulse ox is around 92%.n HEENT examination is grossly unremarkable. Mucous membranes are moist. No oral lesions. Neck supple. Full range of motion. No adenopathy thyromegaly or neck vein distention. Cardiovascular examination reveals regular rhythm rate. S1-S2 normal. No S3 or S4. No discernible murmur noted. Heart sounds are distant. Lungs reveal bilateral rhonchi and a few scattered crackles. No wheezes. Her sounds equal bilaterally. Breath sounds are diminished throughout. The patient continues to have crackles in the lung bases along with diminished breath on the lung bases bilaterally. Abdomen soft bowel sounds are heard. No masses or tenderness. Extremities are intact. Trace edema. No cyanosis or clubbing. Skin is without rash or lesion. Neurologic examination is brief but nonfocal. - Labs CBC & Chem 7: 05/19/20 06:49 05/19/20 06:49 Labs: Abnormal Lab Results - Last 24 Hours (Table) 05/18/20 05/18/20 05/18/20 Range/Units 11:55 16:55 19:43 RBC (4.30-5.90) m/uL Hgb (13.0-17.5) gm/dL Hct (39.0-53.0) % Plt Count (150-450) k/uL Carbon Dioxide (22-30) mmol/L BUN (9-20) mg/dL Creatinine (0.66-1.25) mg/dL Glucose (74-99) mg/dL POC Glucose (mg/dL) 177 H 107 H 234 H (75-99) mg/dL Calcium (8.4-10.2) mg/dL 05/19/20 05/19/20 05/19/20 Range/Units 06:03 06:49 06:49 RBC 3.63 L (4.30-5.90) m/uL Hgb 10.5 L (13.0-17.5) gm/dL Hct 31.7 L (39.0-53.0) % Plt Count 136 L (150-450) k/uL Carbon Dioxide 31 H (22-30) mmol/L BUN 55 H (9-20) mg/dL Creatinine 2.77 H (0.66-1.25) mg/dL Glucose 125 H (74-99) mg/dL POC Glucose (mg/dL) 122 H (75-99) mg/dL Calcium 8.1 L (8.4-10.2) mg/dL Assessment and Plan Plan: 1 Shortness of breath, which may relate to underlying congestive heart failure, and/or pneumonia. The patient was given a combination of cefepime and vancomycin. The patient has cardiomegaly and extensive consolidation of the left lung and addition to infiltration of the right lung base along with pulmonary vascular congestion. Rule out CHF. Rule out superimposed pneumonia. His proBNP level at time of admission was 14,200. His admission, the patient was given broad-spectrum antibiotics with a combination of cefepime and vancomycin. The patient proBNP level was elevated and the pro-calcitonin level was minimally elevated. The patient was subjected to diuretics and the patient responded nicely and the patient is a negative fluid balance. He does have some residual crackles in lung bases bilaterally. 2 Mental status changes, improved. The patient is communicating and the patient is awake and oriented 3. 3 History of essential hypertension. 4 History of obstructive sleep apnea syndrome. 5 History of osteoarthritis. 6 History of essential hypertension. 7 History of gastroesophageal reflux disease. 8 History of diabetes mellitus. 9 Prior history of CVA. Patient has no deficits for now. 10 History of CAD with prior stent placement. Plan: Continue Lasix 40 mg IV every 12 hours. Continue cefepime and stop the vancomycin for now Keep the Wood catheter in place and monitor the urine output Continue BiPAP as needed and the patient is currently on 2 L of oxygen by nasal cannula and the patient's oxidation is improved considerably. Echocardiogram has been done and it showed technically difficult study with the left ventricular ejection fraction could not be estimated and this was essentially very poor study. Urine drug screen is positive for cannabis COVID19 testing was negative Noncontrast CAT scan of the chest was noted and the patient has some patchy bilateral pulmonary infiltrates and better pleural effusion left more than right Nephrology on the case Repeat chest x-ray in the morning We'll continue to follow. Clinically improving. We'll continue to follow.
[2020-05-19] MEDS: APIXABAN 2.5 MG TABLET PO SCH ×2 (10:32→20:35)
[2020-05-19] MEDS: ATORVASTATIN 40 MG TAB PO SCH (10:32)
[2020-05-19] MEDS: FAMOTIDINE 20 MG TAB PO SCH (10:32)
[2020-05-19] MEDS: hydrALAZINE HCL 50 MG TAB PO SCH ×3 (10:32→20:36)
[2020-05-19] MEDS: amLODIPine 10 MG TAB PO SCH (10:32)
[2020-05-19] MEDS: TAMSULOSIN 0.4 MG CAP.ER.24H PO SCH (10:32)
[2020-05-19] MEDS: CITALOPRAM HYDROBROMIDE 20 MG TAB PO SCH (10:33)
[2020-05-19] MEDS: carvediloL 12.5 MG TAB PO SCH ×2 (10:33→20:36)
[2020-05-19] MEDS: GLIMEPIRIDE 1 MG TAB PO SCH (10:33)
[2020-05-19] MEDS: ASPIRIN 81 MG PO SCH (10:33)
[2020-05-19] MEDS: GABAPENTIN 300 MG CAP PO SCH ×2 (10:33→20:36)
[2020-05-19] MEDS: FUROSEMIDE 10 MG/ML 4 ML VIAL IV SCH (10:33)
[2020-05-19] MEDS: BUDESONIDE 0.5 MG/2 ML NEBU INHALATION SCH ×2 (10:52→21:02)
--- NOTE | 2020-05-19 10:57 | P.PN ---
Subjective Patient is seen in follow-up for chronic kidney disease and hyperkalemia. Patient has chronic kidney disease stage IV with baseline creatinine in the range of 2.5-3. Renal function stable. Nonoliguric. Denies chest pain or shortness of breath. Currently on BiPAP. Oral intake fair. Currently sleeping. Maintained on IV Lasix. Vital signs are stable. General: The patient appeared well nourished and normally developed. HEENT: On BiPAP. LUNGS: Breath sounds decreased. HEART: Rate and Rhythm are regular. ABDOMEN: Soft, nontender. EXTREMITITES: Trace edema. Objective - Vital Signs Vital signs: Vital Signs Temp 98.0 F 05/18/20 20:35 Pulse 68 05/19/20 04:00 Resp 18 05/19/20 04:00 BP 140/63 05/19/20 04:00 Pulse Ox 95 05/19/20 04:00 Intake & Output 05/18/20 05/19/20 05/19/20 18:59 06:59 18:59 Intake Total 2460 180 Output Total 2250 1475 Balance 210 -1295 Weight 128 kg Intake: Oral 2460 180 Output: Urine 2250 1475 Other: Voiding Method Indwelling Catheter Indwelling Catheter # Bowel Movements 1 - Labs CBC & Chem 7: 05/19/20 06:49 05/19/20 06:49 Labs: Abnormal Lab Results - Last 24 Hours (Table) 05/18/20 05/18/20 05/18/20 Range/Units 11:55 16:55 19:43 RBC (4.30-5.90) m/uL Hgb (13.0-17.5) gm/dL Hct (39.0-53.0) % Plt Count (150-450) k/uL Carbon Dioxide (22-30) mmol/L BUN (9-20) mg/dL Creatinine (0.66-1.25) mg/dL Glucose (74-99) mg/dL POC Glucose (mg/dL) 177 H 107 H 234 H (75-99) mg/dL Calcium (8.4-10.2) mg/dL 05/19/20 05/19/20 05/19/20 Range/Units 06:03 06:49 06:49 RBC 3.63 L (4.30-5.90) m/uL Hgb 10.5 L (13.0-17.5) gm/dL Hct 31.7 L (39.0-53.0) % Plt Count 136 L (150-450) k/uL Carbon Dioxide 31 H (22-30) mmol/L BUN 55 H (9-20) mg/dL Creatinine 2.77 H (0.66-1.25) mg/dL Glucose 125 H (74-99) mg/dL POC Glucose (mg/dL) 122 H (75-99) mg/dL Calcium 8.1 L (8.4-10.2) mg/dL Assessment and Plan Plan: Assessment: 1. Chronic kidney disease stage IV with baseline creatinine in the range of 2.5-3. Renal function stable. Etiology is diabetic kidney disease no hydronephrosis noted on kidney ultrasound.. 2. Hyperkalemia secondary to chronic kidney disease, urinary retention and losartan. Potassium now normal. 3. Urinary retention status post Wood catheter placement. On Flomax. 4. Hypertension with chronic kidney disease. Controlled. 5. Diabetes mellitus. 6. Anemia of chronic kidney disease. Iron deficiency noted. 7. Volume overload. Improving with diuresis. 8. Pneumonia maintained on antibiotics. 9. Hypomagnesemia from diuresis. Plan: Maintain Wood catheter. I will change Lasix to 40 mg orally twice daily. Continue to monitor renal function and urine output. Continue to hold losartan. IV iron 3 doses. Last dose today. Monitor vancomycin levels. Dose to be adjusted for renal function. Replace magnesium. 2 g IV today.
--- NOTE | 2020-05-19 11:28 | P.PN ---
Subjective Progress Note Date: 05/19/20 This is 70-year-old gentleman admitted with multiple medical issues in a patient with history of fungal overgrowth syndrome recently completed Diflucan treatment as ordered per aracelis Collins GI specialist. Patient also follows closely outpatient with , GI, locally. Complains of chronic right upper quadrant abdominal pain, no nausea, no vomiting, no diarrhea. Less shortness of breath today.Maintaining O2 sats in the 90s on 15 L high flow nasal cannula. Pro-calcitonin elevated at 0.35. Chest x-ray reporting cardiomegaly, perihilar and infrahilar opacity, left lower lung consolidation, small left and trace right pleural effusions .maintained on broad-spectrum antibiotic coverage with IV cefepime. Afebrile .Potassium has improved, down to 4.8. Renal function, no significant change from yesterday, BUN 53, creatinine 2.6. Echo pending. Consuming 25-100% of meals, blood sugars uncontrolled. Receiving IV ferritin. 05/18/20 maintained on vancomycin and cefepime, afebrile. diuresing well on Lasix IV push with 24-hour I&O reflecting a negative fluid balance. Renal function stable. Potassium within normal limits. Receiving second dose of IV iron today. Chest CT reported multifocal, multilobar acute groundglass opacities-multifocal bilateral pneumonia, stable elevated left hemidiaphragm, right mediastinal shift similar to prior abdominal CT of 11/14/2019. Echo poor study, very limited/unreadable. Reports he feels better, slept well. Denies cough or shortness of breath. 15 L of high flow nasal cannula recently decreased to 10 L. Chronic abdominal pain lessening. Hypertensive, hydralazine increased. 05/19/2020 maintained on broad-spectrum IV antibiotics, afebrile. Currently on BiPAP this morning, reports he slept well. Continue diuresing well on Lasix IV push with a negative fluid balance. Creatinine stable, minimally increased to 2.77. Magnesium 1.6. Anticoagulated on Eliquis. Objective - Vital Signs Vital signs: Vital Signs Temp 98.0 F 05/18/20 20:35 Pulse 68 05/19/20 04:00 Resp 18 05/19/20 04:00 BP 140/63 05/19/20 04:00 Pulse Ox 95 05/19/20 04:00 Intake & Output 05/18/20 05/19/20 05/19/20 18:59 06:59 18:59 Intake Total 2460 180 Output Total 2250 1475 Balance 210 -1295 Weight 128 kg Intake: Oral 2460 180 Output: Urine 2250 1475 Other: Voiding Method Indwelling Catheter Indwelling Catheter # Bowel Movements 1 - Exam GENERAL: Sitting up at side of bed, alert and oriented 3, on BiPAP HEENT: Normocephalic, atraumatic ,Pupils are round and equal, conjunctiva normal . CARDIOVASCULAR: S1 and S2 regular. Systolic murmur. PULMONARY: Good air entry, diminished with scattered rhonchi and bibasilar crackles ABDOMEN: Soft nondistended, nontender,normoactive bowel sounds. No palpable organomegaly. EXTREMITIES: No cyanosis, clubbing, trace pedal edema. NEUROLOGICAL: Gross neurological examination did not reveal any focal deficits. SKIN: Warm and dry, No rashes. - Labs CBC & Chem 7: 05/19/20 06:49 05/19/20 06:49 Labs: Abnormal Lab Results - Last 24 Hours (Table) 05/18/20 05/18/20 05/18/20 Range/Units 11:55 16:55 19:43 RBC (4.30-5.90) m/uL Hgb (13.0-17.5) gm/dL Hct (39.0-53.0) % Plt Count (150-450) k/uL Carbon Dioxide (22-30) mmol/L BUN (9-20) mg/dL Creatinine (0.66-1.25) mg/dL Glucose (74-99) mg/dL POC Glucose (mg/dL) 177 H 107 H 234 H (75-99) mg/dL Calcium (8.4-10.2) mg/dL 05/19/20 05/19/20 05/19/20 Range/Units 06:03 06:49 06:49 RBC 3.63 L (4.30-5.90) m/uL Hgb 10.5 L (13.0-17.5) gm/dL Hct 31.7 L (39.0-53.0) % Plt Count 136 L (150-450) k/uL Carbon Dioxide 31 H (22-30) mmol/L BUN 55 H (9-20) mg/dL Creatinine 2.77 H (0.66-1.25) mg/dL Glucose 125 H (74-99) mg/dL POC Glucose (mg/dL) 122 H (75-99) mg/dL Calcium 8.1 L (8.4-10.2) mg/dL Assessment and Plan Assessment: -Acute hypoxic, hypercapnic respiratory failure secondary to multifocal bilateral pneumonia-HCAP, bilateral pleural effusions-pulmonary vascular congestion ,possibly acute CHF exacerbation, diastolic dysfunction. VQ low probability. -Acute Metabolic and toxic encephalopathy secondary to infection and CO2 ret ention, improving -Hyperkalemia , multifactorial, secondary to urinary retention, medications-losartan, chronic kidney disease, resolved -Chronic kidney disease, stage IV, baseline 2.3 to 2.7. -Anemia of chronic disease -Urinary retention requiring Wood catheter placement, Flomax added. -Chronic right upper quadrant pain in a patient with history of fungal overgrowth syndrome, recently completed Diflucan treatment as ordered per aracelis Collins. -Essential hypertension -Obstructive sleep apnea -Gastroesophageal reflux disease -Type 2 diabetes mellitus, hyperglycemic, possibly steroid induced, hemoglobin A1c 6.5. -Coronary artery disease with prior stents -Severe hyperkalemia -Diabetic peripheral neuropathy -THC detected in toxicology screening. -Paroximal atrial fibrillation, currently not on anticoagulation-etiology unclear at this time. Plan: Continue on current medication regime ,monitoring and symptomatic treatment. Continue on diuretics, IV antibiotics. Close monitoring of renal function with repeat labs ordered for a.m. Supplement magnesium. Follow closely with both pulmonary and nephrology. The impression and plan of care has been dictated as directed. : I performed a history and examination of this patient, discussed the same with the dictator. I agree with the dictator's note ,documented as a scribe. Any additional findings or plans will be noted.
[2020-05-19 12:01] LABS: Glucose,Whole Blood 208 mg/dL (75-99)
[2020-05-19] MEDS: MAGNESIUM SULFATE-D5W PMX 1 GM in DEXTROSE/WATER 1 100ML.BAG IVPB SCH ×3 (14:07→20:35)
[2020-05-19] MEDS: FUROSEMIDE 40 MG TAB PO SCH (16:08)
[2020-05-19 16:33] LABS: Glucose,Whole Blood 189 mg/dL (75-99)
[2020-05-19] MEDS: ACETAMINOPHEN TAB 325 MG TAB PO PRN ×2 (16:43→20:36)
[2020-05-19 20:28] LABS: Glucose,Whole Blood 117 mg/dL (75-99)
[2020-05-19] MEDS: DOCUSATE 100 MG CAP PO SCH (20:36)
[2020-05-20] MEDS: HYDROcodone/APAP 5-325MG 1 EACH TAB PO PRN ×3 (00:03→20:33)
[2020-05-20 02:01] LABS: Glucose,Whole Blood 113 mg/dL (75-99)
[2020-05-20] MEDS: CEFEPIME 1 GM in SODIUM CHLORIDE 0.9% 50 ML IVPB SCH (03:10)
[2020-05-20 06:14] LABS: Glucose,Whole Blood 91 mg/dL (75-99)
[2020-05-20] MEDS: INSULIN ASPART (NovoLOG) 100 UNIT/ML VIAL SQ SCH ×4 (06:17→20:31)
--- NOTE | 2020-05-20 07:18 | XR ---
EXAMINATION TYPE: XR chest 1V portable DATE OF EXAM: 05/20/2020 CLINICAL HISTORY: Difficulty breathing progress study. TECHNIQUE: Single AP portable upright view of the chest is obtained. COMPARISON: Chest x-ray and CT from 3 days earlier FINDINGS: Persistent elevated left hemidiaphragm. Background cardiomegaly and chronic parenchymal ch anges along with atherosclerotic thoracic aorta redemonstrated. Persistent but improved bibasilar opa cities. Residual small right pleural effusion. Osseous structures are intact. IMPRESSION: Cardiomegaly and chronic parenchymal changes with persistent but improving bibasilar acut e infiltrate and/or atelectasis. Chronic elevated left hemidiaphragm. Stable small right pleural effu marjorie.
[2020-05-20] MEDS: BUDESONIDE 0.5 MG/2 ML NEBU INHALATION SCH (07:45)
[2020-05-20] MEDS ORDERED: DOCUSATE 100 MG CAP PO SCH (09:00)
[2020-05-20 09:15] LABS: Calcium 8.2 mg/dL (8.4-10.2); Potassium 5.3 mmol/L (3.5-5.1)
[2020-05-20] MEDS: hydrALAZINE HCL 50 MG TAB PO SCH ×3 (09:49→20:33)
[2020-05-20] MEDS: FUROSEMIDE 40 MG TAB PO SCH ×2 (09:50→17:27)
[2020-05-20] MEDS: SODIUM FERRIC GLUCONAT-SUCROSE 125 MG in SODIUM CHLORIDE 0.9% 100 ML IVPB SCH (09:50)
[2020-05-20] MEDS: ASPIRIN 81 MG PO SCH (09:50)
[2020-05-20] MEDS: CITALOPRAM HYDROBROMIDE 20 MG TAB PO SCH (09:50)
[2020-05-20] MEDS: APIXABAN 2.5 MG TABLET PO SCH ×2 (09:50→20:32)
[2020-05-20] MEDS: amLODIPine 10 MG TAB PO SCH (09:50)
[2020-05-20] MEDS: TAMSULOSIN 0.4 MG CAP.ER.24H PO SCH (09:50)
[2020-05-20] MEDS: carvediloL 12.5 MG TAB PO SCH ×2 (09:50→20:32)
[2020-05-20] MEDS: ATORVASTATIN 40 MG TAB PO SCH (09:50)
[2020-05-20] MEDS: GABAPENTIN 300 MG CAP PO SCH ×2 (09:50→20:33)
[2020-05-20] MEDS: FAMOTIDINE 20 MG TAB PO SCH (09:50)
[2020-05-20] MEDS: GLIMEPIRIDE 1 MG TAB PO SCH (09:50)
--- NOTE | 2020-05-20 10:28 | P.PN ---
Subjective Progress Note Date: 05/20/20 70-year-old male, who presents to the emergency department, on 05/15/2020. The patient apparently has a history of chronic kidney disease, essential hypertension, diabetes mellitus, and COPD. He apparently presents to the emergency department with mental status changes. We saw the patient on the floor, and he was on BiPAP, with an IPAP of 14, EPAP of 5, and 50%. He apparently was complaining of hallucinations in the emergency department, and also was very unsteady on his feet, and did fall the day prior to admission. He apparently hit his head when he fell, but denied LOC. He also states that he sees one of the cardiologists, and has had coronary disease, with previous stent placement. He also admits to a diagnosis of congestive heart failure. The patient is awake and alert on the BiPAP. It is a bit difficult getting history from him because he's got the BiPAP in place. He is feeling better he tells me. Currently, his temperature is 98.2, heart rate 73, respiratory rate between 18 and 19 breaths per minute, and blood pressure is 159/74 with a mean of 102. His saturations are between 94 to 97% on BiPAP. Current labs include a white count of 10.7, hemoglobin 9.8, hematocrit 29.9, and a platelet count of 119,000. Sodium is 138, potassium 5.9, chlorides 102, CO2 28, anion gap 8, BUN 50, and creatinine 2.55. Drug screen was positive for marijuana. His urinalysis is essentially negative. The chest x-rays in my opinion show evidence of cardiomegaly, and cephalization, consistent with vascular decompensation. The pulmonary perfusion study was low probability for pulmonary embolism. On 2020, the patient is being seen for a follow. This 70-year-old male patient has chronic kidney disease, stage IV with a baseline creatinine ranging between 2.73 and the patient came in with altered mental status and worsening shortness of breath. He was nonoliguric. Potassium level was elevated at 6.6 and then drop down to 5.9. Patient was noted to have some mild urinary retention of 400 mL before the Wood catheter insertion. He was initially placed on BiPAP. VQ scan a low probability. Echocardiogram from April 2019 was a preserved LV function. On today's evaluation, the patient remains on BiPAP at a pressure of 14/5 cm of water with an FiO2 of 40%. He is utilizing a full face mask and is quite synchronous and comfortable while being on a BiPAP treatment. He is looking and slightly less short of breath compared to yesterday. His blood work today shows a BUN of 53 with a creatinine of 2.6 which is compatible to yesterday. Potassium level has dropped down to 4.8. The patient's chest x-ray from today shows cardiomegaly and addition to some cephali zation. There is trace right-sided pleural effusion and there is some bilateral perihilar infiltrates. There is evidence of vascular decompensation. There may be also an extensive consolidation of the left lower lung. Left hemidiaphragm is more silhouetted on today's evaluation. The patient remains on IV cefepime as a broad-spectrum antibiotic coverage. The patient is on antibiotics and prot on serotonin level is at 0.35.. Ultrasound the Kidneys Showed No Evidence of Any Hydronephrosis On 05/18/2020 I'm seeing the patient for a follow-up. Dane is a very pleasant 70-year-old male patient with stage IV kidney disease who came in with acute hypoxic respiratory failure. He also had altered mental status along with shortness of breath. The patient's had an elevated potassium level that improved. He had urinary retention and a Wood catheter was inserted. I saw him in consultation yesterday. He was on a BiPAP. He was at a pressure of 14/5 cm of water and FiO2 40%. At that point, a CAT scan of the chest was ordered and he chose compressive atelectasis in the lung bases and small bilateral pleural effusions left more than right. Also, there was some limited patchy infiltration in lung bases bilaterally and this into the upper lobes consistent with multilobar pneumonia.. The left hemidiaphragm was elevated. Over the past 24 hours, the patient was covered with antibiotics and he was receiving a combination of cefepime and vancomycin. The patient also was subjected to diuretics 40 mg of Lasix every 12 hours and he is producing adequate amount of urine output and the patient is in a negative fluid balance.. His negative fluid balance of around 2 L since yesterday. He is improved and his FiO2 is also improved and the patient is currently down to 9 L of oxygen by nasal cannula and was taken off the BiPAP. Cultures are none for now. No angina. No palpitation. Creatinine from today is at 2.67 which is essentially pertinent compared to yesterday. Urine is unchanged. Rest of electrolytes are also unchanged. \ 05/19/20, the patient is currently being seen in follow-up. He was on BiPAP overnight. I took him off the BiPAP this morning and I put him on 2 L about 2 by nasal cannula and his pulse 1290%. He is able to lay down with 10-20 of the head of the bed elevation. He is diuresing adequately and he is in a negative fluid balance of at least 2 L over the past 24 hours. His BUN and creatinine are still stable. On today's blood work, the patient's BUN is at 55 with a creatinine of 2.77. Sodium is at 137 with a potassium of 4.8. The patient's white cell count is at 7.4. He remains on Lasix 40 mg IV every 12 hours. The patient is also on broad-spectrum antibiotics including a combination of cefepime and vancomycin. Cultures have been negative for now. The pro calcitonin level at time of admission was 0.35. He is awake and alert and oriented. He is a responding to the questions appropriately. His blood pressure is also stable. He remains on long-term anticoagulation with Eliquis 2.5 mg by mouth twice a day regarding his atrial fibrillation. Vancomycin trough was 19. He was afebrile this morning. On 05/20/2020, the patient is being seen for a follow-up. Less short of breath. Able to lay down in bed with the head of the bed elevated at around 10-20 and this is limited improvement. He was diuresed aggressively with Lasix and the patient is negative fluid balance of 2.7 L over the past 24 hours. Currently he is on oral Lasix 40 mg by mouth twice a day. His FiO2 currently is at 3 L and the patient is pulse oxing 95%. There is also a BiPAP machine at the bedside which the patient is not utilizing at this point in time. His blood work shows a BUN of 54 with a creatinine of 2.4 which is essentially stable compared to yesterday. His potassium level is at 5.3. His pro calcitonin level was low and the patient was receiving a combination of cefepime and vancomycin. We ended up stopping the vancomycin yesterday and the patient is still on cefepime for now. He is on long-term anticoagulation with Eliquis 2.5 mg by mouth twice a day at his cardiac rhythm is sinus for now. He is alert and awake in obviously reports improvement in his breathing. He has been maintained on long-term oxygen at home at 2 L per minute nasal cannula. No angina. No palpitations. No chest pain. He has a Wood catheter in place. Objective - Vital Signs Vital signs: Vital Signs Temp 98.1 F 05/20/20 00:00 Pulse 64 05/20/20 07:59 Resp 15 05/20/20 03:55 BP 131/63 05/20/20 03:55 Pulse Ox 95 05/20/20 07:46 Intake & Output 05/19/20 05/20/20 05/20/20 18:59 06:59 18:59 Intake Total 240 480 Output Total 1200 1750 Balance -960 -1750 480 Weight 126 kg Intake: Oral 240 480 Output: Urine 1200 1750 Other: Voiding Method Indwelling Catheter Indwelling Catheter - Exam Gen. appearance the patient is much more comfortable compared to yesterday. He is currently 3 L about 2 by nasal cannula and his pulse ox is around 92%.n HEENT examination is grossly unremarkable. Mucous membranes are moist. No oral lesions. Neck supple. Full range of motion. No adenopathy thyromegaly or neck vein distention. Cardiovascular examination reveals regular rhythm rate. S1-S2 normal. No S3 or S4. No discernible murmur noted. Heart sounds are distant. Lungs reveal bilateral rhonchi and a few scattered crackles. No wheezes. Her sounds equal bilaterally. Breath sounds are diminished throughout. The patient continues to have crackles in the lung bases along with diminished breath on the lung bases bilaterally. Abdomen soft bowel sounds are heard. No masses or tenderness. Extremities are intact. Trace edema. No cyanosis or clubbing. Skin is without rash or lesion. Neurologic examination is brief but nonfocal. - Labs CBC & Chem 7: 05/19/20 06:49 05/20/20 07:32 Labs: Abnormal Lab Results - Last 24 Hours (Table) 05/19/20 05/19/20 05/19/20 Range/Units 12:00 16:29 20:27 Sodium (137-145) mmol/L Potassium (3.5-5.1) mmol/L BUN (9-20) mg/dL Creatinine (0.66-1.25) mg/dL POC Glucose (mg/dL) 208 H 189 H 117 H (75-99) mg/dL Calcium (8.4-10.2) mg/dL 05/20/20 05/20/20 Range/Units 02:00 07:32 Sodium 136 L (137-145) mmol/L Potassium 5.3 H (3.5-5.1) mmol/L BUN 54 H (9-20) mg/dL Creatinine 2.49 H (0.66-1.25) mg/dL POC Glucose (mg/dL) 113 H (75-99) mg/dL Calcium 8.2 L (8.4-10.2) mg/dL Assessment and Plan Plan: 1 Shortness of breath, which may relate to underlying congestive heart failure, and/or pneumonia. The patient was most consistent with CHF and less likely pneumonia. The patient improved significantly with diuresis and his oxygenation is also improved and currently is down to 3 L about 2 by nasal cannula. He is in a negative fluid balance. He was taken off the vancomycin. Cefepime will be discontinued and the patient will placed on Augmentin. Patient is also on oral Lasix for now. Wood catheter will be discontinued and oxygenation is improved and shortness of breath is improved considerably. 2 Mental status changes, improved. The patient is communicating and the patient is awake and oriented 3. 3 History of essential hypertension. 4 History of obstructive sleep apnea syndrome. 5 History of osteoarthritis. 6 History of essential hypertension. 7 History of gastroesophageal reflux disease. 8 History of diabetes mellitus. 9 Prior history of CVA. Patient has no deficits for now. 10 History of CAD with prior stent placement. Plan: Continue Lasix 40 mg by mouth twice a day Monitor renal function which is stable for now Stop cefepime and switch the patient to oral Augmentin Discontinue the Wood catheter Discontinue the Perforomist and Pulmicort nebulized treatments and continue only with DuoNeb nebulized treatments around the clock Echocardiogram has been done and it showed technically difficult study with the left ventricular ejection fraction could not be estimated and this was essentially very poor study. Urine drug screen is positive for cannabis COVID19 testing was negative Noncontrast CAT scan of the chest was noted and the patient has some patchy bilateral pulmonary infiltrates and better pleural effusion left more than right Nephrology on the case Repeat chest x-ray in the morning showed cardiomegaly with improvement in the haziness in the lung bases and the pleural effusion noted earlier. Pulmonary vasculature is adequate We'll continue to follow. Clinically improving. .
--- NOTE | 2020-05-20 11:04 | P.PN ---
Subjective Patient is seen in follow-up for chronic kidney disease and hyperkalemia. Patient has chronic kidney disease stage IV with baseline creatinine in the range of 2.5-3. Renal function stable. Nonoliguric. Denies chest pain or shortness of breath. Currently on 2 L nasal cannula. Oral intake fair. Maintained on oral Lasix. Vital signs are stable. General: The patient appeared well nourished and normally developed. HEENT: No JVD. LUNGS: Breath sounds decreased. HEART: Rate and Rhythm are regular. ABDOMEN: Soft, nontender. EXTREMITITES: Trace edema. Objective - Vital Signs Vital signs: Vital Signs Temp 98.1 F 05/20/20 00:00 Pulse 64 05/20/20 07:59 Resp 15 05/20/20 03:55 BP 131/63 05/20/20 03:55 Pulse Ox 95 05/20/20 07:46 Intake & Output 05/19/20 05/20/20 05/20/20 18:59 06:59 18:59 Intake Total 240 480 Output Total 1200 1750 Balance -960 -1750 480 Weight 126 kg Intake: Oral 240 480 Output: Urine 1200 1750 Other: Voiding Method Indwelling Catheter Indwelling Catheter - Labs CBC & Chem 7: 05/19/20 06:49 05/20/20 07:32 Labs: Abnormal Lab Results - Last 24 Hours (Table) 05/19/20 05/19/20 05/19/20 Range/Units 12:00 16:29 20:27 Sodium (137-145) mmol/L Potassium (3.5-5.1) mmol/L BUN (9-20) mg/dL Creatinine (0.66-1.25) mg/dL POC Glucose (mg/dL) 208 H 189 H 117 H (75-99) mg/dL Calcium (8.4-10.2) mg/dL 05/20/20 05/20/20 Range/Units 02:00 07:32 Sodium 136 L (137-145) mmol/L Potassium 5.3 H (3.5-5.1) mmol/L BUN 54 H (9-20) mg/dL Creatinine 2.49 H (0.66-1.25) mg/dL POC Glucose (mg/dL) 113 H (75-99) mg/dL Calcium 8.2 L (8.4-10.2) mg/dL Assessment and Plan Plan: Assessment: 1. Chronic kidney disease stage IV with baseline creatinine in the range of 2.5-3. Renal function stable. Etiology is diabetic kidney disease no hydronephrosis noted on kidney ultrasound.. 2. Hyperkalemia secondary to chronic kidney disease, urinary retention and losartan. 3. Urinary retention status post Wood catheter placement. On Flomax. 4. Hypertension with chronic kidney disease. Controlled. 5. Diabetes mellitus. 6. Anemia of chronic kidney disease. Iron deficiency noted - status post IV iron. 7. Volume overload. Improved with diuresis. 8. Pneumonia maintained on antibiotics. 9. Hypomagnesemia from diuresis. Improved post replacement. Plan: Maintain Lasix 40 mg twice daily. Low potassium diet. Repeat potassium level this evening. Continue to monitor renal function and urine output. Continue to hold losartan. Okay to remove Wood catheter and monitor serial postvoid residuals closely.
[2020-05-20 11:16] VITALS: BMI 41.0
[2020-05-20 11:44] LABS: Glucose,Whole Blood 164 mg/dL (75-99)
--- NOTE | 2020-05-20 14:03 | P.PN ---
Subjective Progress Note Date: 05/20/20 This is 70-year-old gentleman admitted with multiple medical issues in a patient with history of fungal overgrowth syndrome recently completed Diflucan treatment as ordered per aracelis Collins GI specialist. Patient also follows closely outpatient with , GI, locally. Complains of chronic right upper quadrant abdominal pain, no nausea, no vomiting, no diarrhea. Less shortness of breath today.Maintaining O2 sats in the 90s on 15 L high flow nasal cannula. Pro-calcitonin elevated at 0.35. Chest x-ray reporting cardiomegaly, perihilar and infrahilar opacity, left lower lung consolidation, small left and trace right pleural effusions .maintained on broad-spectrum antibiotic coverage with IV cefepime. Afebrile .Potassium has improved, down to 4.8. Renal function, no significant change from yesterday, BUN 53, creatinine 2.6. Echo pending. Consuming 25-100% of meals, blood sugars uncontrolled. Receiving IV ferritin. 05/18/20 maintained on vancomycin and cefepime, afebrile. diuresing well on Lasix IV push with 24-hour I&O reflecting a negative fluid balance. Renal function stable. Potassium within normal limits. Receiving second dose of IV iron today. Chest CT reported multifocal, multilobar acute groundglass opacities-multifocal bilateral pneumonia, stable elevated left hemidiaphragm, right mediastinal shift similar to prior abdominal CT of 11/14/2019. Echo poor study, very limited/unreadable. Reports he feels better, slept well. Denies cough or shortness of breath. 15 L of high flow nasal cannula recently decreased to 10 L. Chronic abdominal pain lessening. Hypertensive, hydralazine increased. 05/19/2020 maintained on broad-spectrum IV antibiotics, afebrile. Currently on BiPAP this morning, reports he slept well. Continue diuresing well on Lasix IV push with a negative fluid balance. Creatinine stable, minimally increased to 2.77. Magnesium 1.6. Anticoagulated on Eliquis. 05/20/2020 maintained on cefepime, afebrile. diuresed well on Lasix IV push with 24-hour I&O reflecting a negative fluid balance, significant clinical improvement, oxygen weaned down to 3 L high flow nasal cannula, maintaining O2 sats in the 90s. Reports he used CPAP during the night. Feels less short of breath. Chest x-ray reporting improving bibasilar acute infiltrate and/or atelectasis, stable small right pleural effusion Patient has been up to shower this morning, tolerating activity well. Renal function remained stable. Patient reports chronic right upper quadrant pain at baseline. Denies chest pain, palpitations. Objective - Vital Signs Vital signs: Vital Signs Temp 98.1 F 05/20/20 00:00 Pulse 64 05/20/20 07:59 Resp 15 05/20/20 03:55 BP 131/63 05/20/20 03:55 Pulse Ox 95 05/20/20 07:46 Intake & Output 05/19/20 05/20/20 05/20/20 18:59 06:59 18:59 Intake Total 240 480 Output Total 1200 1750 Balance -960 -1750 480 Weight 126 kg Intake: Oral 240 480 Output: Urine 1200 1750 Other: Voiding Method Indwelling Catheter Indwelling Catheter - Exam GENERAL: Sitting up at side of bed, alert and oriented 3, on 3 L high flow nasal cannula HEENT: Normocephalic, atraumatic ,Pupils are round and equal, conjunctiva normal. CARDIOVASCULAR: S1 and S2 regular. Systolic murmur. PULMONARY: Good air entry, diminished with scattered rhonchi and bibasilar crackles ABDOMEN: Soft nondistended, nontender,normoactive bowel sounds. No palpable organomegaly. EXTREMITIES: No cyanosis, clubbing,trace edema. NEUROLOGICAL: Gross neurological examination did not reveal any focal deficits. SKIN: Warm and dry, No rashes. - Labs CBC & Chem 7: 05/19/20 06:49 05/20/20 07:32 Labs: Abnormal Lab Results - Last 24 Hours (Table) 05/19/20 05/19/20 05/19/20 Range/Units 12:00 16:29 20:27 Sodium (137-145) mmol/L Potassium (3.5-5.1) mmol/L BUN (9-20) mg/dL Creatinine (0.66-1.25) mg/dL POC Glucose (mg/dL) 208 H 189 H 117 H (75-99) mg/dL Calcium (8.4-10.2) mg/dL 05/20/20 05/20/20 Range/Units 02:00 07:32 Sodium 136 L (137-145) mmol/L Potassium 5.3 H (3.5-5.1) mmol/L BUN 54 H (9-20) mg/dL Creatinine 2.49 H (0.66-1.25) mg/dL POC Glucose (mg/dL) 113 H (75-99) mg/dL Calcium 8.2 L (8.4-10.2) mg/dL Assessment and Plan Assessment: -Acute hypoxic, hypercapnic respiratory failure secondary to multifocal bilateral pneumonia-HCAP, possible gram-negative, bilateral pleural effusions- pulmonary vascular congestion ,possibly acute CHF exacerbation, diastolic dysfunction. VQ low probability. -Acute Metabolic and toxic encephalopathy secondary to infection and CO2 retention, improving -Hyperkalemia , multifactorial, secondary to urinary retention, medications- losartan, chronic kidney disease, resolved -Chronic kidney disease, stage IV, baseline 2.3 to 2.7. -Anemia of chronic disease -Urinary retention requiring Wood catheter placement, Flomax added. -Chronic right upper quadrant pain in a patient with history of fungal overgrowth syndrome, recently completed Diflucan treatment as ordered per aracelis Collins. -Essential hypertension -Obstructive sleep apnea -Gastroesophageal reflux disease -Type 2 diabetes mellitus, hyperglycemic, possibly steroid induced, hemoglobin A1c 6.5. -Coronary artery disease with prior stents -Severe hyperkalemia -Diabetic peripheral neuropathy -THC detected in toxicology screening. -Paroximal atrial fibrillation, currently not on anticoagulation-etiology u nclear at this time. Plan: Continue on current medication regime ,monitoring and symptomatic treat ment. Antibiotics and diuretics converted to oral. Wood to be discontinued. Close monitoring of renal function with repeat labs ordered for a.m. discharge planning in progress for tomorrow pending final DC recommendations and clearance from both nephrology and pulmonary. The impression and plan of care has been dictated as directed. : I performed a history and examination of this patient, discussed the same with the dictator. I agree with the dictator's note ,documented as a scribe. Any additional findings or plans will be noted.
[2020-05-20 17:02] LABS: Glucose,Whole Blood 201 mg/dL (75-99)
[2020-05-20] MEDS: ACETAMINOPHEN TAB 325 MG TAB PO PRN (17:36)
[2020-05-20] MEDS ORDERED: DEXTROSE 50% SYRINGE 50 ML IVP STA (17:45)
[2020-05-20] MEDS ORDERED: INSULIN REGULAR 100 UNIT/ML VIAL IV ONE (18:00)
[2020-05-20 20:09] LABS: Glucose,Whole Blood 101 mg/dL (75-99)
[2020-05-20] MEDS: AMOXIC-POT CLAV 875-125MG 1 EACH TAB PO SCH (20:32)
[2020-05-20] MEDS: DOCUSATE 100 MG CAP PO SCH (20:33)
[2020-05-21 02:04] LABS: Glucose,Whole Blood 100 mg/dL (75-99)
[2020-05-21 06:37] LABS: Glucose,Whole Blood 118 mg/dL (75-99)
[2020-05-21] MEDS: INSULIN ASPART (NovoLOG) 100 UNIT/ML VIAL SQ SCH ×2 (06:47→12:13)
[2020-05-21 08:38] LABS: Calcium 8.4 mg/dL (8.4-10.2)
[2020-05-21] MEDS: ASPIRIN 81 MG PO SCH (08:54)
[2020-05-21] MEDS: FAMOTIDINE 20 MG TAB PO SCH (08:54)
[2020-05-21] MEDS: GABAPENTIN 300 MG CAP PO SCH (08:54)
[2020-05-21] MEDS: hydrALAZINE HCL 50 MG TAB PO SCH (08:54)
[2020-05-21] MEDS: TAMSULOSIN 0.4 MG CAP.ER.24H PO SCH (08:55)
[2020-05-21] MEDS: GLIMEPIRIDE 1 MG TAB PO SCH (08:55)
[2020-05-21] MEDS: AMOXIC-POT CLAV 875-125MG 1 EACH TAB PO SCH (08:55)
[2020-05-21] MEDS: FUROSEMIDE 40 MG TAB PO SCH (08:55)
[2020-05-21] MEDS: ATORVASTATIN 40 MG TAB PO SCH (08:55)
[2020-05-21] MEDS: HYDROcodone/APAP 5-325MG 1 EACH TAB PO PRN (08:55)
[2020-05-21] MEDS: CITALOPRAM HYDROBROMIDE 20 MG TAB PO SCH (08:55)
[2020-05-21] MEDS: APIXABAN 2.5 MG TABLET PO SCH (08:55)
[2020-05-21] MEDS: amLODIPine 10 MG TAB PO SCH (08:56)
[2020-05-21] MEDS: carvediloL 12.5 MG TAB PO SCH (08:56)
[2020-05-21] MEDS ORDERED: IPRATROPIUM-ALBUTEROL 3 ML NEB INHALATION PRN (09:24)
--- NOTE | 2020-05-21 09:46 | P.DS ---
Providers Date of admission: 05/15/20 15:37 Expected date of discharge: 05/21/20 Attending physician: Dane Chowdary MD Consults: 05/15/20 15:39 Consult Physician Urgent Consulting Provider: [facility] Consult Reason/Comments: acute chest pain, hx ascad Do you want consulting provider notified?: Yes 05/15/20 15:43 Consult Physician Urgent Consulting Provider: Antonio Amezcua Consult Reason/Comments: a/c renal failure, hyperkalemia Do you want consulting provider notified?: Yes 05/16/20 02:57 Consult Physician Routine Consulting Provider: Malachi Bills Consult Reason/Comments: copd Do you want consulting provider notified?: Yes Primary care physician: Elena Rodriguez Hospital Course: Final Diagnoses: -Acute hypoxic, hypercapnic respiratory failure secondary to acute CHF exacerbation, diastolic dysfunction ,multifocal bilateral pneumonia-HCAP, possible gram-negative,VQ low probability. -Acute Metabolic and toxic encephalopathy secondary to infection and CO2 retention, improving -Hyperkalemia , multifactorial, secondary to urinary retention, medications- losartan, chronic kidney disease, resolved -Chronic kidney disease, stage IV, baseline 2.3 to 2.7. -Anemia of chronic disease -Urinary retention requiring Wood catheter placement, Flomax added. -Chronic right upper quadrant pain in a patient with history of fungal overgrowth syndrome, recently completed Diflucan treatment as ordered per aracelis Collins. Recommending probiotics. -Essential hypertension -Obstructive sleep apnea -Gastroesophageal reflux disease -Type 2 diabetes mellitus, hyperglycemic, possibly steroid induced, hemoglobin A1c 6.5. -Coronary artery disease with prior stents -Severe hyperkalemia -Diabetic peripheral neuropathy -THC detected in toxicology screening. -Paroximal atrial fibrillation, currently not on anticoagulation-etiology unclear at this time. Hospital course:This is 70-year-old gentleman admitted with multiple medical issues in a patient with history of fungal overgrowth syndrome recently completed Diflucan treatment as ordered per aracelis Collins GI specialist. Patient also follows closely outpatient with , GI, locally. Complains of chr onic right upper quadrant abdominal pain, no nausea, no vomiting, no diarrhea. Less shortness of breath today.Maintaining O2 sats in the 90s on 15 L high flow nasal cannula. Pro-calcitonin elevated at 0.35. Chest x-ray reporting cardiomegaly, perihilar and infrahilar opacity, left lower lung consolidation, small left and trace right pleural effusions .maintained on broad-spectrum antibiotic coverage with IV cefepime. Afebrile .Potassium has improved, down to 4.8. Renal function, no significant change from yesterday, BUN 53, creatinine 2.6. Echo pending. Consuming 25-100% of meals, blood sugars uncontrolled. Receiving IV ferritin. 05/18/20 maintained on vancomycin and cefepime, afebrile. diuresing well on Lasix IV push with 24-hour I&O reflecting a negative fluid balance. Renal fun ction stable. Potassium within normal limits. Receiving second dose of IV iron today. Chest CT reported multifocal, multilobar acute groundglass opacities- multifocal bilateral pneumonia, stable elevated left hemidiaphragm, right mediastinal shift similar to prior abdominal CT of 11/14/2019. Echo poor study, very limited/unreadable. Reports he feels better, slept well. Denies cough or shortness of breath. 15 L of high flow nasal cannula recently decreased to 10 L. Chronic abdominal pain lessening. Hypertensive, hydralazine increased. 05/19/2020 maintained on broad-spectrum IV antibiotics, afebrile. Currently on BiPAP this morning, reports he slept well. Continue diuresing well on Lasix IV push with a negative fluid balance. Creatinine stable, minimally increased to 2.77. Magnesium 1.6. Anticoagulated on Eliquis. 05/20/2020 maintained on cefepime, afebrile. diuresed well on Lasix IV push with 24-hour I&O reflecting a negative fluid balance, significant clinical improvement, oxygen weaned down to 3 L high flow nasal cannula, maintaining O2 sats in the 90s. Reports he used CPAP during the night. Feels less short of breath. Chest x-ray reporting improving bibasilar acute infiltrate and/or atelectasis, stable small right pleural effusion Patient has been up to shower this morning, tolerating activity well. Renal function remained stable. Patient reports chronic right upper quadrant pain at baseline. Denies chest pain, palpitations. Converted over to oral diuretics and oral antibiotics .Significant clinical improvement. Oxygen requirements have remained down to 2 L high flow nasal cannula. Afebrile. Patient will be discharged home today in a stable condition with guarded prognosis, pending final DC recommendations and clearance from pulmonary. Discussed he should be on probiotics secondary to his fungal overgrowth syndrome. The impression and plan of care has been dictated as directed. : I performed a history and examination of this patient, discussed the same with the dictator. I agree with the dictator's note ,documented as a scribe. Any additional findings or plans will be noted. Patient Condition at Discharge: Stable Plan - Discharge Summary Discharge Rx Participant: No New Discharge Prescriptions: New hydrALAZINE HCL [Apresoline] 50 mg PO TID #90 tab Aspirin 81 mg PO DAILY chew Amoxic-Pot Clav 875-125Mg [Augmentin 875-125] 1 each PO Q12HR #6 tab Tamsulosin [Flomax] 0.4 mg PO PC-BRKFST #30 cap.er.24h Furosemide [Lasix] 40 mg PO BID@0900,1600 #60 tab Atorvastatin [Lipitor] 40 mg PO DAILY #30 tab Famotidine [Pepcid] 20 mg PO DAILY tab Apixaban [Eliquis] 2.5 mg PO BID #60 tablet Lactobacillus Acidophilus [Acidophilus] 1 each PO BID #60 tablet Ipratropium-Albuterol Nebulize [Duoneb 0.5 mg-3 mg/3 ml Soln] 3 ml INHALATION QID #120 neb Continue amLODIPine BESYLATE [Amlodipine Besylate] 10 mg PO DAILY Gabapentin 600 mg PO BID Ferrous Sulfate [Feosol] 325 mg PO DAILY Glimepiride [Amaryl] 1 mg PO DAILY Carvedilol [Coreg] 25 mg PO BID Dicyclomine [Bentyl] 20 mg PO TID PRN #20 tablet PRN Reason: abdominal pain Citalopram Hydrobromide [CeleXA] 40 mg PO DAILY levETIRAcetam [Keppra] 750 mg PO BID traMADol HCL 50 mg PO QID Discontinued Losartan Potassium 25 mg PO DAILY Discharge Medication List amLODIPine BESYLATE [Amlodipine Besylate] 10 mg PO DAILY 10/26/15 [History] Gabapentin 600 mg PO BID 10/25/18 [History] Carvedilol [Coreg] 25 mg PO BID 01/26/20 [History] Ferrous Sulfate [Feosol] 325 mg PO DAILY 01/26/20 [History] Glimepiride [Amaryl] 1 mg PO DAILY 01/26/20 [History] Dicyclomine [Bentyl] 20 mg PO TID PRN #20 tablet 02/04/20 [Rx] Citalopram Hydrobromide [CeleXA] 40 mg PO DAILY 05/15/20 [History] levETIRAcetam [Keppra] 750 mg PO BID 05/15/20 [History] traMADol HCL 50 mg PO QID 05/15/20 [History] Amoxic-Pot Clav 875-125Mg [Augmentin 875-125] 1 each PO Q12HR #6 tab 05/21/20 [Rx] Apixaban [Eliquis] 2.5 mg PO BID #60 tablet 05/21/20 [Rx] Aspirin 81 mg PO DAILY chew 05/21/20 [Rx] Atorvastatin [Lipitor] 40 mg PO DAILY #30 tab 05/21/20 [Rx] Famotidine [Pepcid] 20 mg PO DAILY tab 05/21/20 [Rx] Furosemide [Lasix] 40 mg PO BID@0900,1600 #60 tab 05/21/20 [Rx] Ipratropium-Albuterol Nebulize [Duoneb 0.5 mg-3 mg/3 ml Soln] 3 ml INHALATION QID #120 neb 05/21/20 [Rx] Lactobacillus Acidophilus [Acidophilus] 1 each PO BID #60 tablet 05/21/20 [Rx] Tamsulosin [Flomax] 0.4 mg PO PC-BRKFST #30 cap.er.24h 05/21/20 [Rx] hydrALAZINE HCL [Apresoline] 50 mg PO TID #90 tab 05/21/20 [Rx] Follow up Appointment(s)/Referral(s): Obinna Eng MD [STAFF PHYSICIAN] - 2 Weeks Malachi Bills DO [Doctor of Osteopathic Medicine] - 1 Week [facility], [NON-STAFF] - Antonio Amezcua DO [STAFF PHYSICIAN] - 1 Week Elena Rodriguez DO [Primary Care Provider] - 3 Days Ridge Angel MD [STAFF PHYSICIAN] - 2 Weeks Ambulatory/Diagnostic Orders: Complete Blood Count w/diff [LAB.AMB] Time Frame: 3 Days, Location: None Selected Patient Instructions/Handouts: Potassium Content of Foods List (DC), Hyperkalemia (DC) Activity/Diet/Wound Care/Special Instructions: Pending final DC recommendations and clearance from both pulmonary and nephrology. Per Nephrology, Have BNP and Mg drawn Sunday05/24/2020. O2: Diet: 1500 fluid restrictions Discharge Disposition: HOME SELF-CARE
--- NOTE | 2020-05-21 10:09 | P.PN ---
Subjective Progress Note Date: 05/21/20 70-year-old male, who presents to the emergency department, on 05/15/2020. The patient apparently has a history of chronic kidney disease, essential hypertension, diabetes mellitus, and COPD. He apparently presents to the emergency department with mental status changes. We saw the patient on the floor, and he was on BiPAP, with an IPAP of 14, EPAP of 5, and 50%. He apparently was complaining of hallucinations in the emergency department, and also was very unsteady on his feet, and did fall the day prior to admission. He apparently hit his head when he fell, but denied LOC. He also states that he sees one of the cardiologists, and has had coronary disease, with previous stent placement. He also admits to a diagnosis of congestive heart failure. The patient is awake and alert on the BiPAP. It is a bit difficult getting history from him because he's got the BiPAP in place. He is feeling better he tells me. Currently, his temperature is 98.2, heart rate 73, respiratory rate between 18 and 19 breaths per minute, and blood pressure is 159/74 with a mean of 102. His saturations are between 94 to 97% on BiPAP. Current labs include a white count of 10.7, hemoglobin 9.8, hematocrit 29.9, and a platelet count of 119,000. Sodium is 138, potassium 5.9, chlorides 102, CO2 28, anion gap 8, BUN 50, and creatinine 2.55. Drug screen was positive for marijuana. His urinalysis is essentially negative. The chest x-rays in my opinion show evidence of cardiomegaly, and cephalization, consistent with vascular decompensation. The pulmonary perfusion study was low probability for pulmonary embolism. On 2020, the patient is being seen for a follow. This 70-year-old male patient has chronic kidney disease, stage IV with a baseline creatinine ranging between 2.73 and the patient came in with altered mental status and worsening shortness of breath. He was nonoliguric. Potassium level was elevated at 6.6 and then drop down to 5.9. Patient was noted to have some mild urinary retention of 400 mL before the Wood catheter insertion. He was initially placed on BiPAP. VQ scan a low probability. Echocardiogram from April 2019 was a preserved LV function. On today's evaluation, the patient remains on BiPAP at a pressure of 14/5 cm of water with an FiO2 of 40%. He is utilizing a full face mask and is quite synchronous and comfortable while being on a BiPAP treatment. He is looking and slightly less short of breath compared to yesterday. His blood work today shows a BUN of 53 with a creatinine of 2.6 which is compatible to yesterday. Potassium level has dropped down to 4.8. The patient's chest x-ray from today shows cardiomegaly and addition to some cephali zation. There is trace right-sided pleural effusion and there is some bilateral perihilar infiltrates. There is evidence of vascular decompensation. There may be also an extensive consolidation of the left lower lung. Left hemidiaphragm is more silhouetted on today's evaluation. The patient remains on IV cefepime as a broad-spectrum antibiotic coverage. The patient is on antibiotics and prot on serotonin level is at 0.35.. Ultrasound the Kidneys Showed No Evidence of Any Hydronephrosis On 05/18/2020 I'm seeing the patient for a follow-up. Dane is a very pleasant 70-year-old male patient with stage IV kidney disease who came in with acute hypoxic respiratory failure. He also had altered mental status along with shortness of breath. The patient's had an elevated potassium level that improved. He had urinary retention and a Wood catheter was inserted. I saw him in consultation yesterday. He was on a BiPAP. He was at a pressure of 14/5 cm of water and FiO2 40%. At that point, a CAT scan of the chest was ordered and he chose compressive atelectasis in the lung bases and small bilateral pleural effusions left more than right. Also, there was some limited patchy infiltration in lung bases bilaterally and this into the upper lobes consistent with multilobar pneumonia.. The left hemidiaphragm was elevated. Over the past 24 hours, the patient was covered with antibiotics and he was receiving a combination of cefepime and vancomycin. The patient also was subjected to diuretics 40 mg of Lasix every 12 hours and he is producing adequate amount of urine output and the patient is in a negative fluid balance.. His negative fluid balance of around 2 L since yesterday. He is improved and his FiO2 is also improved and the patient is currently down to 9 L of oxygen by nasal cannula and was taken off the BiPAP. Cultures are none for now. No angina. No palpitation. Creatinine from today is at 2.67 which is essentially pertinent compared to yesterday. Urine is unchanged. Rest of electrolytes are also unchanged. \ 05/19/20, the patient is currently being seen in follow-up. He was on BiPAP overnight. I took him off the BiPAP this morning and I put him on 2 L about 2 by nasal cannula and his pulse 1290%. He is able to lay down with 10-20 of the head of the bed elevation. He is diuresing adequately and he is in a negative fluid balance of at least 2 L over the past 24 hours. His BUN and creatinine are still stable. On today's blood work, the patient's BUN is at 55 with a creatinine of 2.77. Sodium is at 137 with a potassium of 4.8. The patient's white cell count is at 7.4. He remains on Lasix 40 mg IV every 12 hours. The patient is also on broad-spectrum antibiotics including a combination of cefepime and vancomycin. Cultures have been negative for now. The pro calcitonin level at time of admission was 0.35. He is awake and alert and oriented. He is a responding to the questions appropriately. His blood pressure is also stable. He remains on long-term anticoagulation with Eliquis 2.5 mg by mouth twice a day regarding his atrial fibrillation. Vancomycin trough was 19. He was afebrile this morning. On 05/20/2020, the patient is being seen for a follow-up. Less short of breath. Able to lay down in bed with the head of the bed elevated at around 10-20 and this is limited improvement. He was diuresed aggressively with Lasix and the patient is negative fluid balance of 2.7 L over the past 24 hours. Currently he is on oral Lasix 40 mg by mouth twice a day. His FiO2 currently is at 3 L and the patient is pulse oxing 95%. There is also a BiPAP machine at the bedside which the patient is not utilizing at this point in time. His blood work shows a BUN of 54 with a creatinine of 2.4 which is essentially stable compared to yesterday. His potassium level is at 5.3. His pro calcitonin level was low and the patient was receiving a combination of cefepime and vancomycin. We ended up stopping the vancomycin yesterday and the patient is still on cefepime for now. He is on long-term anticoagulation with Eliquis 2.5 mg by mouth twice a day at his cardiac rhythm is sinus for now. He is alert and awake in obviously reports improvement in his breathing. He has been maintained on long-term oxygen at home at 2 L per minute nasal cannula. No angina. No palpitations. No chest pain. He has a Wood catheter in place. 05/21/2020 I'm seeing the patient for a follow-up. Is sitting up on a recliner and he has no complains and he reports improvement in his shortness of breath. He was diuresed aggressively and he was in a negative fluid balance. His breathing status improved. He was taken off the antibiotics yesterday. His weight is down to 123 pounds. He has been in a negative fluid balance over the past 48 hours. He remains on Lasix this was switched to 40 mg by mouth twice a day. He is on Augmentin and long-term anticoagulation with Eliquis. No nausea. No vomiting. No abdominal pain. No chest pain. His BUN is at 49 with a creatinine of 2.8. Discharge planning is in progress Objective - Vital Signs Vital signs: Vital Signs Temp 98.3 F 05/20/20 19:30 Pulse 61 05/21/20 04:20 Resp 14 05/21/20 04:20 BP 155/74 05/21/20 04:20 Pulse Ox 97 05/21/20 04:20 Intake & Output 05/20/20 05/21/20 05/21/20 18:59 06:59 18:59 Intake Total 1920 480 Output Total 865 400 800 Balance 1055 -400 -320 Weight 126 kg 123.6 kg Intake: Oral 1920 480 Output: Urine 725 400 800 Post Void Residual 140 Other: Voiding Method Indwelling Catheter Toilet Urinal # Voids 1 # Bowel Movements 1 - Exam Gen. appearance the patient is much more comfortable compared to yesterday. He is currently 3 L about 2 by nasal cannula and his pulse ox is around 92%.n HEENT examination is grossly unremarkable. Mucous membranes are moist. No oral lesions. Neck supple. Full range of motion. No adenopathy thyromegaly or neck vein distention. Cardiovascular examination reveals regular rhythm rate. S1-S2 normal. No S3 or S4. No discernible murmur noted. Heart sounds are distant. Lungs reveal bilateral rhonchi and a few scattered crackles. No wheezes. Her sounds equal bilaterally. Breath sounds are diminished throughout. The patient continues to have crackles in the lung bases along with diminished breath on the lung bases bilaterally. Abdomen soft bowel sounds are heard. No masses or tenderness. Extremities are intact. Trace edema. No cyanosis or clubbing. Skin is without rash or lesion. Neurologic examination is brief but nonfocal. - Labs CBC & Chem 7: 05/19/20 06:49 05/21/20 07:03 Labs: Abnormal Lab Results - Last 24 Hours (Table) 05/20/20 05/20/20 05/20/20 Range/Units 11:42 15:59 16:53 Sodium (137-145) mmol/L Potassium 5.4 H (3.5-5.1) mmol/L Carbon Dioxide (22-30) mmol/L BUN (9-20) mg/dL Creatinine (0.66-1.25) mg/dL POC Glucose (mg/dL) 164 H 201 H (75-99) mg/dL 05/20/20 05/20/20 05/21/20 Range/Units 20:08 20:25 02:02 Sodium (137-145) mmol/L Potassium 5.3 H (3.5-5.1) mmol/L Carbon Dioxide (22-30) mmol/L BUN (9-20) mg/dL Creatinine (0.66-1.25) mg/dL POC Glucose (mg/dL) 101 H 100 H (75-99) mg/dL 05/21/20 05/21/20 Range/Units 06:36 07:03 Sodium 136 L (137-145) mmol/L Potassium (3.5-5.1) mmol/L Carbon Dioxide 31 H (22-30) mmol/L BUN 49 H (9-20) mg/dL Creatinine 2.81 H (0.66-1.25) mg/dL POC Glucose (mg/dL) 118 H (75-99) mg/dL Assessment and Plan Plan: 1 Shortness of breath, which may relate to underlying congestive heart failure, and/or pneumonia. The patient was most consistent with CHF and less likely pneumonia. The patient improved significantly with diuresis and his oxygenation is also improved and currently is down to 3 L about 2 by nasal cannula. He is in a negative fluid balance. He was taken off the vancomycin. Cefepime will be discontinued and the patient will placed on Augmentin. Patient is also on oral Lasix for now. Patient is even feeling better. Wood catheter was removed and the patient feels that he is back to his baseline for now. He is on oral Augmentin. Is on oral Lasix. 2 Mental status changes, improved. The patient is communicating and the patient is awake and oriented 3. 3 History of essential hypertension. 4 History of obstructive sleep apnea syndrome. 5 History of osteoarthritis. 6 History of essential hypertension. 7 History of gastroesophageal reflux disease. 8 History of diabetes mellitus. 9 Prior history of CVA. Patient has no deficits for now. 10 History of CAD with prior stent placement. Plan: Continue Lasix 40 mg by mouth twice a day Monitor renal function which is stable for now oral Augmentin. Total of 1 week course Discontinued the Wood catheter DuoNeb nebulized treatments around the clock Echocardiogram has been done and it showed technically difficult study with the left ventricular ejection fraction could not be estimated and this was essentially very poor study. Urine drug screen is positive for cannabis COVID19 testing was negative Noncontrast CAT scan of the chest was noted and the patient has some patchy bilateral pulmonary infiltrates and better pleural effusion left more than right Nephrology on the case Repeat chest x-ray in the morning showed cardiomegaly with improvement in the haziness in the lung bases and the pleural effusion noted earlier. Pulmonary vasculature is adequate chest x-ray from yesterday We'll continue to follow. Clinically improving. Consider discharging this patient home today to be followed up on outpatient basis. .
--- NOTE | 2020-05-21 10:26 | P.PN ---
Subjective Patient is seen in follow-up for chronic kidney disease and hyperkalemia. Patient has chronic kidney disease stage IV with baseline creatinine in the range of 2.5-3. Renal function stable. Nonoliguric. Denies chest pain or shortness of breath. Currently on 2 L nasal cannula. Oral intake fair. Maintained on oral Lasix. Potassium level 5.0 this morning. Patient was eating bananas which he was getting from home. Vital signs are stable. General: The patient appeared well nourished and normally developed. HEENT: No JVD. LUNGS: Breath sounds decreased. HEART: Rate and Rhythm are regular. ABDOMEN: Soft, nontender. EXTREMITITES: Trace edema. Objective - Vital Signs Vital signs: Vital Signs Temp 98.3 F 05/20/20 19:30 Pulse 61 05/21/20 04:20 Resp 14 05/21/20 04:20 BP 155/74 05/21/20 04:20 Pulse Ox 97 05/21/20 04:20 Intake & Output 05/20/20 05/21/20 05/21/20 18:59 06:59 18:59 Intake Total 1920 480 Output Total 865 400 800 Balance 1055 -400 -320 Weight 126 kg 123.6 kg Intake: Oral 1920 480 Output: Urine 725 400 800 Post Void Residual 140 Other: Voiding Method Indwelling Catheter Toilet Urinal # Voids 1 # Bowel Movements 1 - Labs CBC & Chem 7: 05/19/20 06:49 05/21/20 07:03 Labs: Abnormal Lab Results - Last 24 Hours (Table) 05/20/20 05/20/20 05/20/20 Range/Units 11:42 15:59 16:53 Sodium (137-145) mmol/L Potassium 5.4 H (3.5-5.1) mmol/L Carbon Dioxide (22-30) mmol/L BUN (9-20) mg/dL Creatinine (0.66-1.25) mg/dL POC Glucose (mg/dL) 164 H 201 H (75-99) mg/dL 05/20/20 05/20/20 05/21/20 Range/Units 20:08 20:25 02:02 Sodium (137-145) mmol/L Potassium 5.3 H (3.5-5.1) mmol/L Carbon Dioxide (22-30) mmol/L BUN (9-20) mg/dL Creatinine (0.66-1.25) mg/dL POC Glucose (mg/dL) 101 H 100 H (75-99) mg/dL 05/21/20 05/21/20 Range/Units 06:36 07:03 Sodium 136 L (137-145) mmol/L Potassium (3.5-5.1) mmol/L Carbon Dioxide 31 H (22-30) mmol/L BUN 49 H (9-20) mg/dL Creatinine 2.81 H (0.66-1.25) mg/dL POC Glucose (mg/dL) 118 H (75-99) mg/dL Assessment and Plan Plan: Assessment: 1. Chronic kidney disease stage IV with baseline creatinine in the range of 2.5-3. Renal function stable. Etiology is diabetic kidney disease no hydronephrosis noted on kidney ultrasound.. 2. Hyperkalemia secondary to chronic kidney disease, urinary retention and losartan. Better. 3. Urinary retention status post Wood catheter placement now removed, . On Flomax. 4. Hypertension with chronic kidney disease. Stable. 5. Diabetes mellitus. 6. Anemia of chronic kidney disease. Iron deficiency noted - status post IV iron. 7. Volume overload. Improved with diuresis. 8. Pneumonia maintained on antibiotics. 9. Hypomagnesemia from diuresis. Improved post replacement. Plan: Maintain Lasix 40 mg twice daily. Low potassium diet. He was advised to cut the intake of bananas. Information on low potassium diet will be provided. Continue to monitor renal function and urine output. Continue to hold losartan. Anticipate discharge soon. Repeat BMP and magnesium level 2-3 days post discharge. Follow up outpatient in 1 week.
[2020-05-21 10:52] VITALS: BP 162/72; RESP 20; TEMP 97.7
[2020-05-21 11:37] LABS: Glucose,Whole Blood 196 mg/dL (75-99)
[2020-05-21] MEDS ORDERED: IPRATROPIUM-ALBUTEROL 3 ML NEB INHALATION SCH (12:00)
[2020-05-21 12:09] VITALS: PULSE 62
[2020-05-21] MEDS ORDERED: AMOXIC-POT CLAV 500-125 MG 1 EACH TAB PO SCH (21:00)
== END 2020-05-21 14:12 | disposition home health service (06) | DRG 177 ==
LOC: EC 12:18 → 3SCARD 15:37
PROVIDERS: ADMIT Family Medicine; ATTEND Family Medicine
PROC: 5A0955A Assistance with Respiratory Ventilation, Greater than 96 Consecutive Hours, High Flow/Velocity Cannula (ICD-10-PCS; 2020-05-15)
PROC: 5A09557 Assistance with Respiratory Ventilation, Greater than 96 Consecutive Hours, Continuous Positive Airway Pressure (ICD-10-PCS; principal; 2020-05-16)
DX: J15.6 Pneumonia due to other Gram-negative bacteria (principal); G92 Toxic encephalopathy; J96.02 Acute respiratory failure with hypercapnia; J96.01 Acute respiratory failure with hypoxia; I50.33 Acute on chronic diastolic (congestive) heart failure; J44.0 Chronic obstructive pulmonary disease with (acute) lower respiratory infection; J44.1 Chronic obstructive pulmonary disease with (acute) exacerbation; Z68.41 Body mass index [BMI] 40.0-44.9, adult; I13.0 Hypertensive heart and chronic kidney disease with heart failure and stage 1 through stage 4 chronic kidney disease, or unspecified chronic kidney disease; N18.4 Chronic kidney disease, stage 4 (severe); E87.2 Acidosis; J98.11 Atelectasis; D63.1 Anemia in chronic kidney disease; E11.22 Type 2 diabetes mellitus with diabetic chronic kidney disease; E11.42 Type 2 diabetes mellitus with diabetic polyneuropathy; E11.51 Type 2 diabetes mellitus with diabetic peripheral angiopathy without gangrene; E11.65 Type 2 diabetes mellitus with hyperglycemia; E66.01 Morbid (severe) obesity due to excess calories; I48.0 Paroxysmal atrial fibrillation; Z20.822 Contact with and (suspected) exposure to COVID-19; Y95 Nosocomial condition; J98.4 Other disorders of lung; E87.5 Hyperkalemia; K21.9 Gastro-esophageal reflux disease without esophagitis; I25.10 Atherosclerotic heart disease of native coronary artery without angina pectoris; G89.29 Other chronic pain; R26.81 Unsteadiness on feet; R33.9 Retention of urine, unspecified; R10.11 Right upper quadrant pain; E61.1 Iron deficiency; E78.5 Hyperlipidemia, unspecified; E83.42 Hypomagnesemia; I35.0 Nonrheumatic aortic (valve) stenosis; M19.90 Unspecified osteoarthritis, unspecified site; F32.9 Major depressive disorder, single episode, unspecified; F41.9 Anxiety disorder, unspecified; G47.33 Obstructive sleep apnea (adult) (pediatric); T38.0X5A Adverse effect of glucocorticoids and synthetic analogues, initial encounter; F12.10 Cannabis abuse, uncomplicated; Z99.81 Dependence on supplemental oxygen; Z79.84 Long term (current) use of oral hypoglycemic drugs; Z79.891 Long term (current) use of opiate analgesic; Z79.899 Other long term (current) drug therapy; Z87.891 Personal history of nicotine dependence; Z86.73 Personal history of transient ischemic attack (TIA), and cerebral infarction without residual deficits; Z90.49 Acquired absence of other specified parts of digestive tract; Z87.19 Personal history of other diseases of the digestive system; Z95.5 Presence of coronary angioplasty implant and graft; Z98.42 Cataract extraction status, left eye; Z98.41 Cataract extraction status, right eye; Z86.79 Personal history of other diseases of the circulatory system; Z87.440 Personal history of urinary (tract) infections; Z98.890 Other specified postprocedural states; Z71.3 Dietary counseling and surveillance; Z71.51 Drug abuse counseling and surveillance of drug abuser; W19.XXXA Unspecified fall, initial encounter; Z88.3 Allergy status to other anti-infective agents
CPT/HCPCS: 36415; 70450; 71045; 71046; 71250; 72125; 76770; 78582; 80048; 80053; 80143; 80179; 80202; 80306; 80320; 81001; 82140; 82550; 82728; 82803; 82805; 83036; 83540; 83550; 83605; 83735; 83880; 84132; 84145; 84443; 84484; 85025; 85610; 85730; 87635; 93005; 93306; 94640; 94660; 94760; 96361; 96374; 96375; 99285

== ENCOUNTER → 2020-05-24 | Outpatient (CLI) | payer MEDICARE ==
[2020-05-24 18:35] LABS: Basophils # (A) 0.05 X 10*3/uL (0.00-0.10); Basophils % (A) 0.5 %; Eosinophils # (A) 0.36 X 10*3/uL (0.04-0.35); Eosinophils % (A) 3.7 %; HCT 30.5 % (39.6-50.0); HGB 9.4 g/dL (13.0-17.0); Lymphocytes # (A) 1.23 X 10*3/uL (0.90-5.00); Lymphocytes % (A) 12.6 %; MCH 28.5 pg (27.0-32.0); MCHC 30.8 g/dL (32.0-37.0); MCV 92.4 fL (80.0-97.0); Monocytes # (A) 1.12 X 10*3/uL (0.20-1.00); Monocytes % (A) 11.5 %; Neutrophils # (A) 6.88 X 10*3/uL (1.80-7.70); Neutrophils % (A) 70.5 %; Platelet Count 126 X 10*3/uL (140-440); RDW 14.6 % (11.5-14.5); WBC 9.76 X 10*3/uL (4.50-10.00)
== END | disposition home or self-care (01) ==
LOC: LABWHC1 13:32
PROVIDERS: ATTEND Nurse Practitioner
DX: I50.9 Heart failure, unspecified (principal); N18.9 Chronic kidney disease, unspecified; J18.9 Pneumonia, unspecified organism
CPT/HCPCS: 36415; 83735; 85025

== ENCOUNTER 2020-05-26 04:44 | Inpatient (IN) | payer MEDICARE ==
--- NOTE | 2020-05-26 05:02 | ED ---
SOB HPI - General Chief Complaint: Upper Respiratory Infection Stated Complaint: Headache Time Seen by Provider: 05/26/20 04:54 Source: patient, RN notes reviewed, old records reviewed Mode of arrival: ambulatory Limitations: no limitations - History of Present Illness Initial Comments: This is a 70-year-old male DF for evaluation patient presents today for evaluation regards to weakness shortness of breath chest pain. Patient has not been feeling well for about 5 days. Denying any significant fevers. No known sick contacts no known travel history no known recent hospital admissions. MD Complaint: shortness of breath, cough, pain with inspiration -: days(s) (5) Severity: moderate Severity scale (1-10): 4 Quality: dull, aching Consistency: constant Improves With: nothing Worsens With: coughing Known History Of: COPD, congestive heart failure Context: recent URI, anxiety, recent illness Associated Symptoms: pain with inspiration, cough - Related Data Home Medications Medication Instructions Recorded Confirmed amLODIPine BESYLATE [Amlodipine 10 mg PO DAILY 10/26/15 05/26/20 Besylate] Gabapentin 600 mg PO BID 10/25/18 05/26/20 Carvedilol [Coreg] 25 mg PO BID 01/26/20 05/26/20 Ferrous Sulfate [Feosol] 325 mg PO DAILY 01/26/20 05/26/20 Glimepiride [Amaryl] 1 mg PO DAILY 01/26/20 05/26/20 Citalopram Hydrobromide [CeleXA] 40 mg PO DAILY 05/15/20 05/26/20 levETIRAcetam [Keppra] 750 mg PO BID 05/15/20 05/26/20 traMADol HCL 50 mg PO QID 05/15/20 05/26/20 Ipratropium-Albuterol Nebulize 3 ml INHALATION RT-QID 05/26/20 05/26/20 [Duoneb 0.5 mg-3 mg/3 ml Soln] Lactobacillus Acidophilus 1 tab PO BID 05/26/20 05/26/20 [Acidophilus] Losartan [Cozaar] 25 mg PO DAILY 05/26/20 05/26/20 Previous Rx's Medication Instructions Recorded Dicyclomine [Bentyl] 20 mg PO TID PRN #20 tablet 02/04/20 Apixaban [Eliquis] 2.5 mg PO BID #60 tablet 05/21/20 Aspirin 81 mg PO DAILY chew 05/21/20 Atorvastatin [Lipitor] 40 mg PO DAILY #30 tab 05/21/20 Famotidine [Pepcid] 20 mg PO DAILY tab 05/21/20 Furosemide [Lasix] 40 mg PO BID@0900,1600 #60 tab 05/21/20 Tamsulosin [Flomax] 0.4 mg PO PC-BRKFST #30 cap.er.24h 05/21/20 hydrALAZINE HCL [Apresoline] 50 mg PO TID #90 tab 05/21/20 Allergies Allergy/AdvReac Type Severity Reaction Status Date / Time neomycin Allergy Itching Verified 05/26/20 06:58 Review of Systems ROS Statement: Those systems with pertinent positive or pertinent negative responses have been documented in the HPI. ROS Other: All systems not noted in ROS Statement are negative. Past Medical History Past Medical History: COPD, CVA/TIA, Diabetes Mellitus, GERD/Reflux, Hypertension, Osteoarthritis (OA), Sleep Apnea/CPAP/BIPAP Additional Past Medical History / Comment(s): having "stomach pain for 4 months",has cpap, TIA years ago, on 05-23-19 episode of confusion,slurred spee ch,tremors, oxygen use History of Any Multi-Drug Resistant Organisms: None Reported Past Surgical History: Cholecystectomy, Heart Catheterization With Stent, Hernia Repair, Orthopedic Surgery Additional Past Surgical History / Comment(s): heart stents x 3,carpal tunnel, left carotid endarterectomy, RIGHT HIP with pin, rt shoulder, umbilical hernia, CTS shayna x2 Past Anesthesia/Blood Transfusion Reactions: No Reported Reaction Date of Last Stent Placement:: 12-10-17 Past Psychological History: Anxiety, Depression Smoking Status: Former smoker Past Alcohol Use History: None Reported Past Drug Use History: None Reported - Past Family History Mother Family Medical History: Cancer Father History Unknown: Yes Additional Family Medical History / Comment(s): ETOH abuse General Exam Limitations: no limitations General appearance: alert, in no apparent distress, anxious, lethargic, in distress Head exam: Present: atraumatic, normocephalic, normal inspection Eye exam: Present: normal appearance, PERRL, EOMI. Absent: scleral icterus, conjunctival injection, periorbital swelling ENT exam: Present: normal exam, mucous membranes moist Neck exam: Present: normal inspection. Absent: tenderness, meningismus, lymphadenopathy Respiratory exam: Present: respiratory distress, wheezes, decreased breath sounds, prolonged expiratory. Absent: rales, rhonchi, stridor Cardiovascular Exam: Present: regular rate, normal rhythm, normal heart sounds. Absent: systolic murmur, diastolic murmur, rubs, gallop, clicks GI/Abdominal exam: Present: soft, normal bowel sounds. Absent: distended, tenderness, guarding, rebound, rigid Extremities exam: Present: normal inspection, full ROM, normal capillary refill. Absent: tenderness, pedal edema, joint swelling, calf tenderness Back exam: Present: normal inspection Neurological exam: Present: alert, oriented X3, CN II-XII intact Psychiatric exam: Present: normal affect, normal mood Skin exam: Present: warm, dry, intact, normal color. Absent: rash Course Vital Signs 05/26/20 05/26/20 05/26/20 04:53 06:00 06:30 Temperature 97.8 F Pulse Rate 60 53 L 55 L Respiratory 18 20 14 Rate Blood Pressure 113/54 136/64 119/64 O2 Sat by Pulse 90 L 91 L 98 Oximetry 05/26/20 05/26/20 05/26/20 06:31 07:00 07:32 Temperature Pulse Rate 52 L 53 L 56 L Respiratory 12 Rate Blood Pressure 123/65 O2 Sat by Pulse 99 Oximetry 05/26/20 05/26/20 05/26/20 09:10 11:00 11:15 Temperature Pulse Rate 62 53 L 53 L Respiratory 18 18 18 Rate Blood Pressure 121/70 111/60 113/81 O2 Sat by Pulse 95 96 93 L Oximetry 05/26/20 05/26/20 05/26/20 11:40 11:53 16:27 Temperature Pulse Rate 56 L 56 L 60 Respiratory Rate Blood Pressure O2 Sat by Pulse Oximetry 05/26/20 05/26/20 05/26/20 16:36 18:19 19:45 Temperature 97.8 F Pulse Rate 61 64 62 Respiratory 18 18 Rate Blood Pressure 99/58 96/53 O2 Sat by Pulse 90 L 91 L Oximetry - Reevaluation(s) Reevaluation #1: Medical record is reviewed Patient no distress here in the ER is improved Spoke with patient regarding findings, questions are answered Patient pulse ox is improved here in the ER Medical Decision Making - Medical Decision Making 70 male DEL with multiple complaints shortness of breath weakness lightheadedness dizziness hypoxic on arrival to ER. Patient be admitted for cardiopulmonary support and evaluation of prior findings - Lab Data Result diagrams: 06/02/20 07:05 06/02/20 07:05 Lab Results 05/26/20 05/26/20 05/26/20 Range/Units 05:28 05:28 05:28 WBC 9.5 (3.8-10.6) k/uL RBC 3.43 L (4.30-5.90) m/uL Hgb 9.8 L (13.0-17.5) gm/dL Hct 30.5 L (39.0-53.0) % MCV 89.0 (80.0-100.0) fL MCH 28.7 (25.0-35.0) pg MCHC 32.2 (31.0-37.0) g/dL RDW 15.2 (11.5-15.5) % Plt Count 120 L (150-450) k/uL MPV 10.0 Neutrophils % 77 % Lymphocytes % 9 % Monocytes % 8 % Eosinophils % 4 % Basophils % 1 % Neutrophils # 7.3 (1.3-7.7) k/uL Lymphocytes # 0.9 L (1.0-4.8) k/uL Monocytes # 0.7 (0-1.0) k/uL Eosinophils # 0.4 (0-0.7) k/uL Basophils # 0.1 (0-0.2) k/uL PT 12.7 H (9.0-12.0) sec INR 1.2 H (<1.2) APTT 27.2 (22.0-30.0) sec D-Dimer 0.65 H (<0.60) mg/L FEU Sodium 129 L (137-145) mmol/L Potassium 5.6 H (3.5-5.1) mmol/L Chloride 94 L (98-107) mmol/L Carbon Dioxide 25 (22-30) mmol/L Anion Gap 10 mmol/L BUN 68 H (9-20) mg/dL Creatinine 3.95 H (0.66-1.25) mg/dL Est GFR (CKD-EPI)AfAm 17 (>60 ml/min/1.73 sqM) Est GFR (CKD-EPI)NonAf 15 (>60 ml/min/1.73 sqM) Glucose 202 H (74-99) mg/dL Plasma Lactic Acid Efrain (0.7-2.0) mmol/L Calcium 8.0 L (8.4-10.2) mg/dL Magnesium 2.1 (1.6-2.3) mg/dL Total Bilirubin 0.5 (0.2-1.3) mg/dL AST 18 (17-59) U/L ALT 15 (4-49) U/L Alkaline Phosphatase 58 (38-126) U/L Lactate Dehydrogenase 480 (313-618) U/L Troponin I (0.000-0.034) ng/mL C-Reactive Protein 11.5 H (<10.0) mg/L Total Protein 6.1 L (6.3-8.2) g/dL Albumin 3.9 (3.5-5.0) g/dL Coronavirus (PCR) (Not Detectd) 05/26/20 05/26/20 05/26/20 Range/Units 05:28 05:28 05:51 WBC (3.8-10.6) k/uL RBC (4.30-5.90) m/uL Hgb (13.0-17.5) gm/dL Hct (39.0-53.0) % MCV (80.0-100.0) fL MCH (25.0-35.0) pg MCHC (31.0-37.0) g/dL RDW (11.5-15.5) % Plt Count (150-450) k/uL MPV Neutrophils % % Lymphocytes % % Monocytes % % Eosinophils % % Basophils % % Neutrophils # (1.3-7.7) k/uL Lymphocytes # (1.0-4.8) k/uL Monocytes # (0-1.0) k/uL Eosinophils # (0-0.7) k/uL Basophils # (0-0.2) k/uL PT (9.0-12.0) sec INR (<1.2) APTT (22.0-30.0) sec D-Dimer (<0.60) mg/L FEU Sodium (137-145) mmol/L Potassium (3.5-5.1) mmol/L Chloride (98-107) mmol/L Carbon Dioxide (22-30) mmol/L Anion Gap mmol/L BUN (9-20) mg/dL Creatinine (0.66-1.25) mg/dL Est GFR (CKD-EPI)AfAm (>60 ml/min/1.73 sqM) Est GFR (CKD-EPI)NonAf (>60 ml/min/1.73 sqM) Glucose (74-99) mg/dL Plasma Lactic Acid Efrain 0.9 (0.7-2.0) mmol/L Calcium (8.4-10.2) mg/dL Magnesium (1.6-2.3) mg/dL Total Bilirubin (0.2-1.3) mg/dL AST (17-59) U/L ALT (4-49) U/L Alkaline Phosphatase (38-126) U/L Lactate Dehydrogenase (313-618) U/L Troponin I <0.012 (0.000-0.034) ng/mL C-Reactive Protein (<10.0) mg/L Total Protein (6.3-8.2) g/dL Albumin (3.5-5.0) g/dL Coronavirus (PCR) Not Detected (Not Detectd) - EKG Data -: EKG Interpreted by Me (EKG is sinus bradycardia 58 GA 1:30 QRS 96 QTc 435) - Radiology Data Radiology results: report reviewed (Chest x-rays negative for acute disease), image reviewed Critical Care Time Critical Care Time: Yes Total Critical Care Time: 31 Disposition Clinical Impression: Acute renal failure, COPD (chronic obstructive pulmonary disease), CHF (congestive heart failure), Hypoxia, Weakness Disposition: ADMITTED IP TO THIS HOSP Condition: Fair Is patient prescribed a controlled substance at d/c from ED?: No
[2020-05-26] MEDS ORDERED: SODIUM CHLORIDE 0.9% 1,000 ML IV STA ×2 (05:03)
[2020-05-26] MEDS ORDERED: ALBUTEROL HFA INHALER INHALATION PRN (05:03)
[2020-05-26] MEDS ORDERED: ACETAMINOPHEN TAB 500 MG TAB PO STA (05:03)
[2020-05-26] MEDS ORDERED: KETOROLAC 15 MG/ML 1 ML VIAL IVP STA (05:03)
[2020-05-26] MEDS ORDERED: ALBUTEROL HFA INHALER INHALATION STA (05:03)
[2020-05-26] MEDS ORDERED: DEXAMETHASONE SOD PHOSPHATE 10 MG/ML 1 ML VIAL IV STA (05:04)
--- NOTE | 2020-05-26 05:38 | XR ---
EXAM: XR Chest, 1 View CLINICAL HISTORY: ITS.REASON XR Reason: Suspected COVID-19 pneumonia TECHNIQUE: Frontal view of the chest. COMPARISON: CXR May 17, 2020. FINDINGS/IMPRESSION: Elevation of the left hemidiaphragm. Moderate vascular congestion. Small bilateral pleural effusions. Mild improving aeration within the left midlung field, likely secondary to improving infiltrates. Continued follow-up CXR recommended. No pneumothorax. Severe cardiomegaly.
[2020-05-26 05:41] LABS: Basophils # (A) 0.1 k/uL (0-0.2); Basophils % (A) 1 %; Eosinophils # (A) 0.4 k/uL (0-0.7); Eosinophils % (A) 4 %; HCT 30.5 % (39.0-53.0); HGB 9.8 gm/dL (13.0-17.5); Lymphocytes # (A) 0.9 k/uL (1.0-4.8); Lymphocytes % (A) 9 %; MCH 28.7 pg (25.0-35.0); MCHC 32.2 g/dL (31.0-37.0); Monocytes # (A) 0.7 k/uL (0-1.0); Monocytes % (A) 8 %; Neutrophils # (A) 7.3 k/uL (1.3-7.7); Neutrophils % (A) 77 %; Platelet Count 120 k/uL (150-450); RBC 3.43 m/uL (4.30-5.90); RDW 15.2 % (11.5-15.5); WBC 9.5 k/uL (3.8-10.6)
[2020-05-26 05:58] LABS: INR 1.2 (<1.2); Partial Thromboplastin Time 27.2 sec (22.0-30.0); Prothrombin Time 12.7 sec (9.0-12.0)
[2020-05-26] MEDS ORDERED: NALOXONE 0.4 MG/ML 1 ML VIAL IV PRN (06:12)
[2020-05-26 06:14] LABS: D-Dimer 0.65 mg/L FEU (<0.60)
[2020-05-26] MEDS ORDERED: FUROSEMIDE 10 MG/ML 4 ML VIAL IV SCH (06:15)
[2020-05-26 06:22] LABS: Albumin 3.9 g/dL (3.5-5.0); C Reactive Protein 11.5 mg/L (<10.0); Magnesium 2.1 mg/dL (1.6-2.3); Potassium 5.6 mmol/L (3.5-5.1); Total Bilirubin 0.5 mg/dL (0.2-1.3); Total Protein 6.1 g/dL (6.3-8.2)
[2020-05-26] MEDS ORDERED: IPRATROPIUM-ALBUTEROL 3 ML NEB INHALATION STA (06:24)
[2020-05-26] MEDS ORDERED: ALBUTEROL NEBULIZED 2.5 MG/3 ML INHALATION STA (06:24)
[2020-05-26] MEDS ORDERED: FUROSEMIDE 10 MG/ML 10 ML VIAL IV STA (06:24)
[2020-05-26] MEDS ORDERED: IPRATROPIUM 0.5 MG/2.5 ML NEBU INHALATION STA (06:24)
[2020-05-26 07:13] LABS: Basophils % (A) 1 %; Eosinophils # (A) 0.3 k/uL (0-0.7); Eosinophils % (A) 4 %; HCT 29.7 % (39.0-53.0); HGB 9.5 gm/dL (13.0-17.5); Lymphocytes # (A) 0.7 k/uL (1.0-4.8); Lymphocytes % (A) 8 %; MCH 28.4 pg (25.0-35.0); MCV 88.7 fL (80.0-100.0); Mean Platelet Volume 9.3; Monocytes # (A) 0.7 k/uL (0-1.0); Monocytes % (A) 8 %; Neutrophils # (A) 7.2 k/uL (1.3-7.7); Neutrophils % (A) 80 %; Platelet Count 119 k/uL (150-450); RBC 3.35 m/uL (4.30-5.90); RDW 15.2 % (11.5-15.5); WBC 9.1 k/uL (3.8-10.6)
[2020-05-26 07:25] LABS: Albumin 3.7 g/dL (3.5-5.0); Calcium 7.7 mg/dL (8.4-10.2); Magnesium 2.1 mg/dL (1.6-2.3); Phosphorus 6.9 mg/dL (2.5-4.5); Potassium 5.6 mmol/L (3.5-5.1); Total Bilirubin 0.4 mg/dL (0.2-1.3); Total Protein 5.9 g/dL (6.3-8.2)
[2020-05-26] MEDS: IPRATROPIUM-ALBUTEROL 3 ML NEB INHALATION SCH ×5 (07:37→23:09)
[2020-05-26] MEDS ORDERED: LOSARTAN 25 MG TAB PO SCH (09:00)
[2020-05-26] MEDS ORDERED: ENOXAPARIN 30 MG/0.3 ML SYRINGE SQ SCH (09:00)
[2020-05-26] MEDS ORDERED: traMADol 50 MG TAB PO PRN (09:00)
[2020-05-26] MEDS: GABAPENTIN 300 MG CAP PO SCH ×2 (09:12→20:21)
[2020-05-26] MEDS: ASPIRIN 81 MG PO SCH (09:12)
[2020-05-26] MEDS: FERROUS SULFATE 325 MG TAB PO SCH (09:12)
[2020-05-26] MEDS: TAMSULOSIN 0.4 MG CAP.ER.24H PO SCH (09:13)
[2020-05-26] MEDS: APIXABAN 2.5 MG TABLET PO SCH ×2 (09:13→20:20)
[2020-05-26] MEDS: GLIMEPIRIDE 1 MG TAB PO SCH (09:13)
[2020-05-26] MEDS: hydrALAZINE HCL 50 MG TAB PO SCH ×3 (09:13→20:20)
[2020-05-26] MEDS: CITALOPRAM HYDROBROMIDE 20 MG TAB PO SCH (09:13)
[2020-05-26] MEDS: ATORVASTATIN 40 MG TAB PO SCH (09:13)
[2020-05-26] MEDS: carvediloL 12.5 MG TAB PO SCH ×2 (09:15→18:19)
[2020-05-26] MEDS: ACETAMINOPHEN TAB 325 MG TAB PO PRN (11:56)
--- NOTE | 2020-05-26 12:27 | P.CRDCN ---
History of Present Illness Consult date: 05/26/20 History of present illness: HISTORY OF PRESENT ILLNESS: This is a 70-year-old male with a past medical history significant for coronary artery disease with PCI to proximal mid and distal RCA in 2018, hypertension, hyperlipidemia, paroxysmal atrial fibrillation, diabetes mellitus, TIA, chronic kidney disease, COPD, aortic stenosis, and former nicotine dependence. Patient follows in the office with Dr. Eng. We have been asked to see the patient in consultation for CHF. Patient examined at the bedside in the emergency room. Patient is alert and oriented 3 when asked, however he appears somewhat confused and is unable to give a thorough history of why he came to the emergency room. There is no family present at the time of examination. He continues to repeat that he had a tooth pulled yesterday. He denies chest pain or pressure. He reports mild shortness of breath. Denies dizziness or lightheadedness. EKG reveals sinus bradycardia with no signs of acute ischemia Chest xray moderate vascular congestion. Small bilateral pleural effusions. Severe cardiomegaly Laboratory data: WBC 9.1. Hemoglobin 9.5. Platelet count 119. D-dimer 0.65. Sodium 132. Potassium 5.6. BUN 68. Creatinine 3.94. Troponin negative 2. BNP 6960. Current home cardiac medications include hydralazine 50 g 3 times a day, amlodipine 10 mg daily, losartan 25 mg daily, Lasix 40 mg twice a day, Coreg 25 mg twice a day, Lipitor 40 mg daily, aspirin 81 mg daily, and Eliquis 2.5 mg twice a day Most recent echocardiogram obtained in April 2020 reveals ejection fraction 55-60%, mild aortic stenosis, mild mitral regurgitation, mild tricuspid regu rgitation Cardiac catheterization history: November [address] Eng with successful stenting of distal RCA, mid RCA, and proximal RCA REVIEW OF SYSTEMS: At the time of my exam: CONSTITUTIONAL: Denies fever or chills. HEENT: Denies blurred vision, vision changes, or eye pain. Denies hemoptysis CARDIOVASCULAR: Denies chest pain. Denies orthopnea. Denies PND. Denies palpitations RESPIRATORY: Denies shortness of breath. GASTROINTESTINAL: Denies abdominal pain. Denies nausea or vomiting. HEMATOLOGIC: Denies bleeding disorders. GENITOURINARY: Denies any blood in urine. SKIN: Denies pruitis. Denies rash. PHYSICAL EXAM: VITAL SIGNS: Reviewed. GENERAL: Well-developed in no acute distress. HEENT: Head is normocephalic. Pupils are equal, round. Sclerae anicteric. Mucous membranes of the mouth are moist. Neck supple. No JVD or thyromegaly LUNGS: Respirations even and unlabored. Lungs diminished with fine bibasilar rales HEART: Regular rate and rhythm. S1 and S2 heard. Systolic murmur noted. ABDOMEN: Soft. Nondistended. Nontender. EXTREMITIES: Normal range of motion. No clubbing or cyanosis. Peripheral pulses intact. Trace bilateral lower extremity edema NEUROLOGIC: Awake and alert. Oriented x 3. ASSESSMENT: Acute exacerbation of diastolic congestive heart failure, EF 55-60% Small bilateral pleural effusions Coronary artery disease with previous PCI to the RCA x , 2017 Mild aortic stenosis Paroxysmal atrial fibrillation, on anticoagulative Eliquis Chronic kidney disease Peripheral vascular disease with previous left carotid endarterectomy Hypertension Hyperlipidemia COPD PLAN: No need to repeat echocardiogram as this was performed in April 2020 Resume home cardiac medications Continue Eliquis for anticoagulation Continue telemetry monitoring Begin Lasix 40 mg IV every 12 hours His continue IV fluids Daily weights Accurate I&O's Monitor kidney function Consult nephrology for evaluation Further recommendations pending patient course Nurse practitioner note has been reviewed by physician. Signing provider agrees with the documented findings, assessment, and plan of care. Past Medical History Past Medical History: COPD, CVA/TIA, Diabetes Mellitus, GERD/Reflux, Hypertension, Osteoarthritis (OA), Sleep Apnea/CPAP/BIPAP Additional Past Medical History / Comment(s): having "stomach pain for 4 months",has cpap, TIA years ago, on 20 episode of confusion,slurred sp eech,tremors, oxygen use History of Any Multi-Drug Resistant Organisms: None Reported Past Surgical History: Cholecystectomy, Heart Catheterization With Stent, Hernia Repair, Orthopedic Surgery Additional Past Surgical History / Comment(s): heart stents x 3,carpal tunnel, left carotid endarterectomy, RIGHT HIP with pin, rt shoulder, umbilical hernia, CTS shayna x2 Past Anesthesia/Blood Transfusion Reactions: No Reported Reaction Date of Last Stent Placement:: 12-10-17 Past Psychological History: Anxiety, Depression Smoking Status: Former smoker Past Alcohol Use History: None Reported Past Drug Use History: None Reported - Past Family History Mother Family Medical History: Cancer Medications and Allergies Home Medications Medication Instructions Recorded Confirmed Type amLODIPine BESYLATE [Amlodipine 10 mg PO DAILY 10/26/15 05/26/20 History Besylate] Gabapentin 600 mg PO BID 10/25/18 05/26/20 History Carvedilol [Coreg] 25 mg PO BID 01/26/20 05/26/20 History Ferrous Sulfate [Feosol] 325 mg PO DAILY 01/26/20 05/26/20 History Glimepiride [Amaryl] 1 mg PO DAILY 01/26/20 05/26/20 History Dicyclomine [Bentyl] 20 mg PO TID PRN #20 tablet 02/04/20 05/26/20 Rx Citalopram Hydrobromide [CeleXA] 40 mg PO DAILY 05/15/20 05/26/20 History levETIRAcetam [Keppra] 750 mg PO BID 05/15/20 05/26/20 History traMADol HCL 50 mg PO QID 05/15/20 05/26/20 History Apixaban [Eliquis] 2.5 mg PO BID #60 tablet 05/21/20 05/26/20 Rx Aspirin 81 mg PO DAILY chew 05/21/20 05/26/20 Rx Atorvastatin [Lipitor] 40 mg PO DAILY #30 tab 05/21/20 05/26/20 Rx Famotidine [Pepcid] 20 mg PO DAILY tab 05/21/20 05/26/20 Rx Furosemide [Lasix] 40 mg PO BID@0900,1600 #60 tab 05/21/20 05/26/20 Rx Tamsulosin [Flomax] 0.4 mg PO PC-BRKFST #30 cap.er.24h 05/21/20 05/26/20 Rx hydrALAZINE HCL [Apresoline] 50 mg PO TID #90 tab 05/21/20 05/26/20 Rx Ipratropium-Albuterol Nebulize 3 ml INHALATION RT-QID 05/26/20 05/26/20 History [Duoneb 0.5 mg-3 mg/3 ml Soln] Lactobacillus Acidophilus 1 tab PO BID 05/26/20 05/26/20 History [Acidophilus] Losartan [Cozaar] 25 mg PO DAILY 05/26/20 05/26/20 History Allergies Allergy/AdvReac Type Severity Reaction Status Date / Time neomycin Allergy Itching Verified 05/26/20 06:58 Physical Exam Vitals: Vital Signs Temp Pulse Resp BP Pulse Ox 05/26/20 11:53 56 L 05/26/20 11:40 56 L 05/26/20 11:15 53 L 18 113/81 53 L 05/26/20 11:00 53 L 18 111/60 96 05/26/20 09:10 62 18 121/70 95 05/26/20 07:32 56 L 05/26/20 07:00 53 L 12 123/65 99 05/26/20 06:31 52 L 05/26/20 06:30 55 L 14 119/64 98 05/26/20 06:00 53 L 20 136/64 91 L 05/26/20 04:53 97.8 F 60 18 113/54 90 L Intake and Output 05/25/20 05/26/20 05/26/20 22:59 06:59 14:59 Other: Weight 123.377 kg Results 05/26/20 06:46 05/26/20 06:46 Cardiac Enzymes 05/26/20 05/26/20 05/26/20 Range/Units 05:28 05:28 06:46 AST 18 17 (17-59) U/L Lactate Dehydrogenase 480 (313-618) U/L Troponin I <0.012 (0.000-0.034) ng/mL 05/26/20 Range/Units 08:13 AST (17-59) U/L Lactate Dehydrogenase (313-618) U/L Troponin I <0.012 (0.000-0.034) ng/mL Coagulation 05/26/20 Range/Units 05:28 PT 12.7 H (9.0-12.0) sec APTT 27.2 (22.0-30.0) sec CBC 05/26/20 05/26/20 Range/Units 05:28 06:46 WBC 9.5 9.1 (3.8-10.6) k/uL RBC 3.43 L 3.35 L (4.30-5.90) m/uL Hgb 9.8 L 9.5 L (13.0-17.5) gm/dL Hct 30.5 L 29.7 L (39.0-53.0) % Plt Count 120 L 119 L (150-450) k/uL Comprehensive Metabolic Panel 05/26/20 05/26/20 Range/Units 05:28 06:46 Sodium 129 L 132 L (137-145) mmol/L Potassium 5.6 H 5.6 H (3.5-5.1) mmol/L Chloride 94 L 98 (98-107) mmol/L Carbon Dioxide 25 25 (22-30) mmol/L BUN 68 H 68 H (9-20) mg/dL Creatinine 3.95 H 3.94 H (0.66-1.25) mg/dL Glucose 202 H 145 H (74-99) mg/dL Calcium 8.0 L 7.7 L (8.4-10.2) mg/dL AST 18 17 (17-59) U/L ALT 15 15 (4-49) U/L Alkaline Phosphatase 58 54 (38-126) U/L Total Protein 6.1 L 5.9 L (6.3-8.2) g/dL Albumin 3.9 3.7 (3.5-5.0) g/dL Current Medications Generic Name Dose Route Start Last Admin Trade Name Freq PRN Reason Stop Dose Admin Acetaminophen 650 mg 05/26/20 11:34 05/26/20 11:56 Acetaminophen Tab 325 Mg Tab PO 650 mg Q6HR PRN Administration Fever and/ or Pain Albuterol Sulfate 2 puff 05/26/20 05:03 Albuterol Hfa Inhaler INHALATION RT-Q6H PRN Shortness Of Breath Or Wheezing Albuterol/Ipratropium 3 ml 05/26/20 08:00 05/26/20 11:40 Ipratropium-Albuterol 3 Ml Neb INHALATION 3 ml RT-Q4H NURIS Administration Apixaban 2.5 mg 05/26/20 09:00 05/26/20 09:13 Apixaban 2.5 Mg Tablet PO 2.5 mg BID NURIS Administration Aspirin 81 mg 05/26/20 09:00 05/26/20 09:12 Aspirin 81 Mg PO 81 mg DAILY NURIS Administration Atorvastatin Calcium 40 mg 05/26/20 09:00 05/26/20 09:13 Atorvastatin 40 Mg Tab PO 40 mg DAILY NURIS Administration Carvedilol 25 mg 05/26/20 09:00 05/26/20 09:15 Carvedilol 12.5 Mg Tab PO 25 mg BID-W/MEALS NURIS Administration Citalopram Hydrobromide 40 mg 05/26/20 09:00 05/26/20 09:13 Citalopram Hydrobromide 20 Mg Tab PO 40 mg DAILY NURIS Administration Ferrous Sulfate 325 mg 05/26/20 09:00 05/26/20 09:12 Ferrous Sulfate 325 Mg Tab PO 325 mg DAILY NURIS Administration Furosemide 40 mg 05/26/20 21:00 Furosemide 10 Mg/Ml 4 Ml Vial IV Q12HR NURIS Gabapentin 600 mg 05/26/20 09:00 05/26/20 09:12 Gabapentin 300 Mg Cap PO 600 mg BID NURIS Administration Glimepiride 1 mg 05/26/20 09:00 05/26/20 09:13 Glimepiride 1 Mg Tab PO 1 mg DAILY NURIS Administration Hydralazine HCl 50 mg 05/26/20 09:00 05/26/20 09:13 Hydralazine Hcl 50 Mg Tab PO 50 mg TID NURIS Administration Sodium Chloride 1,000 mls @ 130 mls/hr 05/26/20 05:03 05/26/20 05:31 Saline 0.9% IV 05/26/20 12:44 130 mls/hr .Q7H42M STA Administration Levetiracetam 750 mg 05/26/20 09:00 05/26/20 09:13 Levetiracetam 750 Mg Tab PO 750 mg BID NURIS Administration Losartan Potassium 25 mg 05/26/20 09:00 05/26/20 09:13 Losartan 25 Mg Tab PO 25 mg DAILY NURIS Administration Naloxone HCl 0.2 mg 05/26/20 06:12 Naloxone 0.4 Mg/Ml 1 Ml Vial IV Q2M PRN Opioid Reversal Tamsulosin HCl 0.4 mg 05/26/20 08:30 05/26/20 09:13 Tamsulosin 0.4 Mg Cap.Er.24h PO 0.4 mg PC-BRKFST NURIS Administration Tramadol HCl 50 mg 05/26/20 09:00 Tramadol 50 Mg Tab PO QID PRN Pain Intake and Output 05/25/20 05/26/20 05/26/20 22:59 06:59 14:59 Other: Weight 123.377 kg 05/26/20 06:46 05/26/20 06:46
--- NOTE | 2020-05-26 16:01 | P.CNPUL ---
History of Present Illness Consult date: 05/26/20 Reason for consult: other Chief complaint: Lower extremity pain, neuropathy History of present illness: 70-year-old white male patient who was familiar to our service from his previous admissions to the hospital for complications related to his underlying congestive heart failure, previous episodes of pneumonia. Patient has multiple medical problems including diabetes mellitus with peripheral neuropathy, obstructive sleep apnea syndrome, hypertension, osteoarthritis, GERD/reflux, prior history of CVA, coronary artery disease with prior stent placement, chronic kidney disease. Patient was recently in the hospital, from 2020 through 05/21/2020 for acute exacerbation of CHF and possibility of bilateral healthcare acquired pneumonia. Patient was discharged home in a stable condition with a guarded prognosis. Patient was treated with cefepime and vancomycin and sent home on Augmentin, he is on maintenance dose of oral Lasix 40 mg twice a day, he is on oral anticoagulation for history of paroxysmal at rial fibrillation, and he is on nebulized bronchodilators. He denied any worsened dyspnea, he states the reason he is here today is for evaluation of his neuropathy and his sore feet. His chest x-ray in emergency department showed elevation of the left hemidiaphragm, moderate vascular congestion, small bilateral pleural effusions, changes consistent with acute exacerbation of CHF. He was tested for COVID 19 and was found to be negative. He is in sinus mechanism on the monitor, he denied any chest pain, no fever or chills, no wheezing or increased phlegm production, however he does have a congestive nonproductive cough, today's labs have been reviewed showing white blood cell count of 9.5, hemoglobin is 9.8, d-dimer 0.65, sodium is 129, potassium is 5.6, chloride is 94, B1 is 68 creatinine is 3.9, lactic acid is 0.9, LFTs are within normal limits, troponin is negative 2 at less than 0.012, proBNP was elevated at 6960. His had no fever or chills, he is sitting up on the edge of the bed, awaiting a bed on selective care unit, is being followed by cardiology. He was already initiated on IV Lasix per cardiology. Review of Systems All systems: negative Constitutional: Denies chills, Denies fever Eyes: denies blurred vision, denies pain Ears, nose, mouth and throat: Denies headache, Denies sore throat Cardiovascular: Reports decreased exercise tolerance, Reports dyspnea on exertion, Reports edema, Denies chest pain, Denies shortness of breath Respiratory: Denies cough Gastrointestinal: Denies abdominal pain, Denies diarrhea, Denies nausea, Denies vomiting Musculoskeletal: Denies myalgias Integumentary: Denies pruritus, Denies rash Neurological: Denies numbness, Denies weakness Psychiatric: Denies anxiety, Denies depression Endocrine: Denies fatigue, Denies weight change Past Medical History Past Medical History: COPD, CVA/TIA, Diabetes Mellitus, GERD/Reflux, Hypertension, Osteoarthritis (OA), Sleep Apnea/CPAP/BIPAP Additional Past Medical History / Comment(s): having "stomach pain for 4 months",has cpap, TIA years ago, on 05-23-19 episode of confusion,slurred speech,tremors, oxygen use History of Any Multi-Drug Resistant Organisms: None Reported Past Surgical History: Cholecystectomy, Heart Catheterization With Stent, Hernia Repair, Orthopedic Surgery Additional Past Surgical History / Comment(s): heart stents x 3,carpal tunnel, left carotid endarterectomy, RIGHT HIP with pin, rt shoulder, umbilical hernia, CTS shayna x2 Past Anesthesia/Blood Transfusion Reactions: No Reported Reaction Date of Last Stent Placement:: 12-10-17 Past Psychological History: Anxiety, Depression Smoking Status: Former smoker Past Alcohol Use History: None Reported Past Drug Use History: None Reported - Past Family History Mother Family Medical History: Cancer Medications and Allergies Home Medications Medication Instructions Recorded Confirmed Type amLODIPine BESYLATE [Amlodipine 10 mg PO DAILY 10/26/15 05/26/20 History Besylate] Gabapentin 600 mg PO BID 10/25/18 05/26/20 History Carvedilol [Coreg] 25 mg PO BID 01/26/20 05/26/20 History Ferrous Sulfate [Feosol] 325 mg PO DAILY 01/26/20 05/26/20 History Glimepiride [Amaryl] 1 mg PO DAILY 01/26/20 05/26/20 History Dicyclomine [Bentyl] 20 mg PO TID PRN #20 tablet 02/04/20 05/26/20 Rx Citalopram Hydrobromide [CeleXA] 40 mg PO DAILY 05/15/20 05/26/20 History levETIRAcetam [Keppra] 750 mg PO BID 05/15/20 05/26/20 History traMADol HCL 50 mg PO QID 05/15/20 05/26/20 History Apixaban [Eliquis] 2.5 mg PO BID #60 tablet 05/21/20 05/26/20 Rx Aspirin 81 mg PO DAILY chew 05/21/20 05/26/20 Rx Atorvastatin [Lipitor] 40 mg PO DAILY #30 tab 05/21/20 05/26/20 Rx Famotidine [Pepcid] 20 mg PO DAILY tab 05/21/20 05/26/20 Rx Furosemide [Lasix] 40 mg PO BID@0900,1600 #60 tab 05/21/20 05/26/20 Rx Tamsulosin [Flomax] 0.4 mg PO PC-BRKFST #30 cap.er.24h 05/21/20 05/26/20 Rx hydrALAZINE HCL [Apresoline] 50 mg PO TID #90 tab 05/21/20 05/26/20 Rx Ipratropium-Albuterol Nebulize 3 ml INHALATION RT-QID 05/26/20 05/26/20 History [Duoneb 0.5 mg-3 mg/3 ml Soln] Lactobacillus Acidophilus 1 tab PO BID 05/26/20 05/26/20 History [Acidophilus] Losartan [Cozaar] 25 mg PO DAILY 05/26/20 05/26/20 History Allergies Allergy/AdvReac Type Severity Reaction Status Date / Time neomycin Allergy Itching Verified 05/26/20 06:58 Physical Exam Vitals: Vital Signs Temp Pulse Resp BP Pulse Ox 05/26/20 11:53 56 L 05/26/20 11:40 56 L 05/26/20 11:15 53 L 18 113/81 93 L 05/26/20 11:00 53 L 18 111/60 96 05/26/20 09:10 62 18 121/70 95 05/26/20 07:32 56 L 05/26/20 07:00 53 L 12 123/65 99 05/26/20 06:31 52 L 05/26/20 06:30 55 L 14 119/64 98 05/26/20 06:00 53 L 20 136/64 91 L 05/26/20 04:53 97.8 F 60 18 113/54 90 L Intake and Output 05/26/20 05/26/20 05/26/20 06:59 14:59 22:59 Other: Weight 123.377 kg GENERAL EXAM: Alert, very pleasant, 70-year-old white male on 3 L of oxygen a pulse ox of 93% comfortable in no apparent distress. HEAD: Normocephalic/atraumatic. EYES: Normal reaction of pupils, equal size. Conjunctiva pink, sclera white. NOSE: Clear with pink turbinates. THROAT: No erythema or exudates. NECK: No masses, no JVD, no thyroid enlargement, no adenopathy. CHEST: No chest wall deformity. Symmetrical expansion. LUNGS: Equal air entry with no crackles, wheeze, rhonchi or dullness. CVS: Regular rate and rhythm, normal S1 and S2, no gallops, no murmurs, no rubs ABDOMEN: Soft, nontender. No hepatosplenomegaly, normal bowel sounds, no guarding or rigidity. EXTREMITIES: No clubbing, trace pretibial edema, no cyanosis, 2+ pulses and upper and lower extremities. MUSCULOSKELETAL: Muscle strength and tone normal. SPINE: No scoliosis or deformity SKIN: No rashes CENTRAL NERVOUS SYSTEM: Alert and oriented -3. No focal deficits, tone is normal in all 4 extremities. PSYCHIATRIC: Alert and oriented -3. Appropriate affect. Intact judgment and insight. Results - Laboratory Findings CBC and BMP: 05/26/20 06:46 05/26/20 06:46 PT/INR, D-dimer PT 12.7 sec (9.0-12.0) H 05/26/20 05:28 INR 1.2 (<1.2) H 05/26/20 05:28 D-Dimer 0.65 mg/L FEU (<0.60) H 05/26/20 05:28 Abnormal lab findings: Abnormal Labs 05/26/20 05/26/20 05/26/20 05:28 05:28 05:28 RBC 3.43 L Hgb 9.8 L Hct 30.5 L Plt Count 120 L Lymphocytes # 0.9 L PT 12.7 H INR 1.2 H D-Dimer 0.65 H Sodium 129 L Potassium 5.6 H Chloride 94 L BUN 68 H Creatinine 3.95 H Glucose 202 H Calcium 8.0 L Phosphorus C-Reactive Protein 11.5 H Total Protein 6.1 L 05/26/20 05/26/20 06:46 06:46 RBC 3.35 L Hgb 9.5 L Hct 29.7 L Plt Count 119 L Lymphocytes # 0.7 L PT INR D-Dimer Sodium 132 L Potassium 5.6 H Chloride BUN 68 H Creatinine 3.94 H Glucose 145 H Calcium 7.7 L Phosphorus 6.9 H C-Reactive Protein Total Protein 5.9 L - Diagnostic Findings Chest x-ray: report reviewed, image reviewed Additional studies: EKG reviewed Assessment and Plan Plan: Assessment: #1. Acute exacerbation of diastolic CHF, COVID 19 negative #2. Dyspnea, and acute hypoxia, related to the above #3. Recent history of hospitalization for acute exacerbation of diastolic CHF and possibility of healthcare acquired pneumonia, patient was discharged home in stable condition but guarded prognosis on 05/21/2020 #4. Diabetes mellitus type II, and patient has complained of sore feet possibly related to underlying diabetic neuropathy #5. Coronary artery disease with previous stenting #6. Hypertension #7. hyperlipidemia #8. Chronic kidney disease #9. History of aortic stenosis #10. Possibility of underlying COPD in view of patient's history of smoking #11. History of osteoarthritis #12. History of CVA #13. History of obstructive sleep apnea syndrome Plan: Continue the diuretics, chest x-ray has been reviewed, and is consistent with acute exacerbation of CHF, follow-up chest x-ray in the morning, accurate intake and output, follow-up labs including electrolytes and renal profile, no fever or chills, COVID 19 PCR negative, continue oral anticoagulation. Continue breathing treatments. We'll continue to follow I performed a history & physical examination of the patient and discussed their management with my nurse practitioner, Gladys Rodriguez. I reviewed the nurse practitioner's note and agree with the documented findings and plan of care. L tommy sounds are positive for congestive cough, mild wheezing. The findings and the impression was discussed with the patient. I attest to the documentation by the nurse practitioner. Time with Patient: Greater than 30
[2020-05-26 20:15] LABS: Glucose,Whole Blood 253 mg/dL (75-99)
[2020-05-26] MEDS: FUROSEMIDE 10 MG/ML 4 ML VIAL IV SCH (20:21)
[2020-05-27] MEDS ORDERED: LORazepam 2 MG/ML INJ IV PRN (01:20)
[2020-05-27 01:35] LABS: ABG Base Excess -2.2 mmol/L; ABG HCO3 25 mmol/L (21-25); ABG Oxygen Saturation 94.1 % (94-97); ABG PCO2 55 mmHg (35-45); ABG PH 7.26 (7.35-7.45); ABG PO2 73 mmHg (83-108); ABG TCO2 27 mmol/L (19-24); Allen Test Performed? Yes
[2020-05-27] MEDS: IPRATROPIUM-ALBUTEROL 3 ML NEB INHALATION SCH ×5 (03:23→20:02)
[2020-05-27 06:19] LABS: Glucose,Whole Blood 108 mg/dL (75-99)
[2020-05-27] MEDS: carvediloL 12.5 MG TAB PO SCH ×2 (06:39→16:46)
--- NOTE | 2020-05-27 07:49 | P.HPIM ---
History of Present Illness H&P Date: 05/27/20 Chief Complaint: weakness, malaise Dane Shah is a 70-year-old male hx diabetes mellitus with CKD, CHF, obstructive sleep apnea, prior history of CVA, coronary artery disease with prior stent placement, seizure disorder who was brought to the ED by his with increasing weakness and shortness of breath as well as twitching in his bilateral upper extremities. Patient was recently in the hospital, from 2020 through 05/21/2020 for acute exacerbation of CHF and possibility of bilateral healthcare acquired pneumonia. Patient was discharged home in a stable condition with a guarded prognosis. Patient was treated with cefepime and vancomycin and sent home on Augmentin, he is on maintenance dose of oral Lasix 40 mg twice a day, he is on oral anticoagulation for history of paroxysmal atrial fibrillation, and he is on nebulized bronchodilators. He denied any worsened dyspnea, he states the reason he is here today is for evaluation of his neuropathy and his sore feet. His chest x-ray in emergency department showed elevation of the left hemidiaphragm, moderate vascular congestion, small bilateral pleural effusions, changes consistent with acute exacerbation of CHF. He was tested for COVID 19 and was found to be negative. He is in sinus mechanism on the monitor, he denied any chest pain, no fever or chills, no wheezing or increased phlegm production, however he does have a congestive nonproductive cough, today's labs have been reviewed showing white blood cell count of 9.5, hemoglobin is 9.8, d-dimer 0.65, sodium is 129, potassium is 5.6, chloride is 94, B1 is 68 creatinine is 3.9, lactic acid is 0.9, LFTs are within normal limits, troponin is negative 2 at less than 0.012, proBNP was elevated at 6960. His had no fever or chills, he is sitting up on the edge of the bed, awaiting a bed on selective care unit, is being followed by cardiology. He was already initiated on IV Lasix per cardiology. Review of Systems All systems: negative Constitutional: Reports malaise, Reports weakness, Denies chills, Denies fever Eyes: denies blurred vision, denies pain Ears, nose, mouth and throat: Denies headache, Denies sore throat Cardiovascular: Denies chest pain, Denies shortness of breath Respiratory: Denies cough Gastrointestinal: Denies abdominal pain, Denies diarrhea, Denies nausea, Denies vomiting Musculoskeletal: Denies myalgias Integumentary: Denies pruritus, Denies rash Neurological: Reports as per HPI, Reports tremors, Denies numbness, Denies weakness Psychiatric: Denies anxiety, Denies depression Endocrine: Denies fatigue, Denies weight change Past Medical History Past Medical History: COPD, CVA/TIA, Diabetes Mellitus, GERD/Reflux, Hypertension, Osteoarthritis (OA), Sleep Apnea/CPAP/BIPAP Additional Past Medical History / Comment(s): having "stomach pain for 4 months",has cpap, TIA years ago, on 05-23-19 episode of confusion,slurred speech, tremors, oxygen use History of Any Multi-Drug Resistant Organisms: None Reported Past Surgical History: Cholecystectomy, Heart Catheterization With Stent, Hernia Repair, Orthopedic Surgery Additional Past Surgical History / Comment(s): heart stents x 3,carpal tunnel, left carotid endarterectomy, RIGHT HIP with pin, rt shoulder, umbilical hernia, CTS shayna x2 Past Anesthesia/Blood Transfusion Reactions: No Reported Reaction Date of Last Stent Placement:: 12-10-17 Smoking Status: Former smoker - Past Family History Mother Family Medical History: Cancer Additional Family Medical History / Comment(s): Stomach cancer Father History Unknown: Yes Additional Family Medical History / Comment(s): ETOH abuse Medications and Allergies Home Medications Medication Instructions Recorded Confirmed Type amLODIPine BESYLATE [Amlodipine 10 mg PO DAILY 10/26/15 05/26/20 History Besylate] Gabapentin 600 mg PO BID 10/25/18 05/26/20 History Carvedilol [Coreg] 25 mg PO BID 01/26/20 05/26/20 History Ferrous Sulfate [Feosol] 325 mg PO DAILY 01/26/20 05/26/20 History Glimepiride [Amaryl] 1 mg PO DAILY 01/26/20 05/26/20 History Dicyclomine [Bentyl] 20 mg PO TID PRN #20 tablet 02/04/20 05/26/20 Rx Citalopram Hydrobromide [CeleXA] 40 mg PO DAILY 05/15/20 05/26/20 History levETIRAcetam [Keppra] 750 mg PO BID 05/15/20 05/26/20 History traMADol HCL 50 mg PO QID 05/15/20 05/26/20 History Apixaban [Eliquis] 2.5 mg PO BID #60 tablet 05/21/20 05/26/20 Rx Aspirin 81 mg PO DAILY chew 05/21/20 05/26/20 Rx Atorvastatin [Lipitor] 40 mg PO DAILY #30 tab 05/21/20 05/26/20 Rx Famotidine [Pepcid] 20 mg PO DAILY tab 05/21/20 05/26/20 Rx Furosemide [Lasix] 40 mg PO BID@0900,1600 #60 tab 05/21/20 05/26/20 Rx Tamsulosin [Flomax] 0.4 mg PO PC-BRKFST #30 cap.er.24h 05/21/20 05/26/20 Rx hydrALAZINE HCL [Apresoline] 50 mg PO TID #90 tab 05/21/20 05/26/20 Rx Ipratropium-Albuterol Nebulize 3 ml INHALATION RT-QID 05/26/20 05/26/20 History [Duoneb 0.5 mg-3 mg/3 ml Soln] Lactobacillus Acidophilus 1 tab PO BID 05/26/20 05/26/20 History [Acidophilus] Losartan [Cozaar] 25 mg PO DAILY 05/26/20 05/26/20 History Allergies Allergy/AdvReac Type Severity Reaction Status Date / Time neomycin Allergy Itching Verified 05/26/20 06:58 Physical Exam Vitals: Vital Signs Temp Pulse Pulse Resp BP BP Pulse Ox 05/27/20 04:00 97.3 F L 69 18 140/61 94 L 05/27/20 03:34 71 05/27/20 03:23 69 05/27/20 02:00 71 18 05/26/20 23:39 71 18 05/26/20 23:23 65 05/26/20 23:20 97.0 F L 71 18 113/56 100 05/26/20 23:10 65 05/26/20 21:04 68 05/26/20 20:53 66 05/26/20 20:00 97.4 F L 66 18 146/67 92 L 05/26/20 19:45 97.8 F 62 18 96/53 91 L 05/26/20 18:19 64 18 99/58 90 L 05/26/20 16:36 61 05/26/20 16:27 60 05/26/20 11:53 56 L 05/26/20 11:40 56 L 05/26/20 11:15 53 L 18 113/81 93 L 05/26/20 11:00 53 L 18 111/60 96 05/26/20 09:10 62 18 121/70 95 05/26/20 07:32 56 L Intake and Output 05/26/20 05/27/20 05/27/20 22:59 06:59 14:59 Intake Total 10 Output Total 625 500 Balance -615 -500 Intake: IV 10 0.9 10 Output: Urine 625 500 Other: Voiding Method Indwelling Catheter Indwelling Catheter Weight 123.377 kg General: well nourished, well developed, NAD, obese. Vitals reviewed Eyes: PERRL, EOMI, conjunctiva normal HENT: normocephalic, mucus membranes moist Neck: supple, no JVD Lungs: normal respiratory effort, no wheezes or rales CV: Regular rate and rhythm, no murmur. Peripheral pulses 2+. Trace edema Abdomen: soft, nondistended, no organomegaly. R sided tenderness Lymph: no cervical or axillary LAD Skin: warm and dry. Neuro: A&Ox3, normal mood and affect. Intermittent twitching of bilateral UE Results CBC & Chem 7: 05/26/20 06:46 05/26/20 06:46 Labs: Abnormal Lab Results - Last 24 Hours (Table) 05/26/20 05/26/20 05/27/20 Range/Units 06:46 20:14 01:29 ABG pH 7.26 L (7.35-7.45) ABG pCO2 55 H (35-45) mmHg ABG pO2 73 L (83-108) mmHg ABG Total CO2 27 H (19-24) mmol/L Sodium 132 L (137-145) mmol/L Potassium 5.6 H (3.5-5.1) mmol/L BUN 68 H (9-20) mg/dL Creatinine 3.94 H (0.66-1.25) mg/dL Glucose 145 H (74-99) mg/dL POC Glucose (mg/dL) 253 H (75-99) mg/dL Calcium 7.7 L (8.4-10.2) mg/dL Phosphorus 6.9 H (2.5-4.5) mg/dL Total Protein 5.9 L (6.3-8.2) g/dL 05/27/20 Range/Units 06:17 ABG pH (7.35-7.45) ABG pCO2 (35-45) mmHg ABG pO2 (83-108) mmHg ABG Total CO2 (19-24) mmol/L Sodium (137-145) mmol/L Potassium (3.5-5.1) mmol/L BUN (9-20) mg/dL Creatinine (0.66-1.25) mg/dL Glucose (74-99) mg/dL POC Glucose (mg/dL) 108 H (75-99) mg/dL Calcium (8.4-10.2) mg/dL Phosphorus (2.5-4.5) mg/dL Total Protein (6.3-8.2) g/dL Thrombosis Risk Factor Assmnt - Choose All That Apply Any of the Below Risk Factors Present?: Yes Each Factor Represents 1 point: Abnormal pulmonary function (COPD), Obesity (BMI >25), Serious lung disease incl. pneumonia (< 1month) Other Risk Factors: Yes Each Risk Factor Represents 2 Points: Age 61-74 years Other congenital or acquired thrombophilia - If yes, enter type in comment: No Thrombosis Risk Factor Assessment Total Risk Factor Score: 5 Thrombosis Risk Factor Assessment Level: High Risk Assessment and Plan (1) Acute renal failure Current Visit: Yes Status: Acute Code(s): N17.9 - ACUTE KIDNEY FAILURE, UNSPECIFIED SNOMED Code(s): 17704174 (2) CHF (congestive heart failure) Current Visit: Yes Status: Acute Code(s): I50.9 - HEART FAILURE, UNSPECIFIED SNOMED Code(s): 04310858 (3) COPD (chronic obstructive pulmonary disease) Current Visit: Yes Status: Acute Code(s): J44.9 - CHRONIC OBSTRUCTIVE PULMONARY DISEASE, UNSPECIFIED SNOMED Code(s): 16593532 (4) Tetrahydrocannabinol (THC) use disorder, mild, abuse Current Visit: No Status: Acute Code(s): F12.10 - CANNABIS ABUSE, UNCOMPLICATED SNOMED Code(s): 21371858 Plan: 1. Acute on chronic CHF. Start IV lasix, cardiology consult. Continue coreg, lipitor, eliquis 2. Acute renal failure on CKD 3. Nephrology consulted, avoid nephrotoxins. Hold losartan. Continue hydralazine 3. Tremors of shayna UE. Hx seizure disorder. consult to neurology for further evaluation 4. COPD 5. Chronic R sided abdominal pain 6. HTN 7. Major depression
--- NOTE | 2020-05-27 07:50 | XR ---
EXAMINATION TYPE: XR chest 1V portable DATE OF EXAM: 05/27/2020 COMPARISON: 05/26/2020 HISTORY: Shortness of breath TECHNIQUE: Single frontal view of the chest is obtained. FINDINGS: Elevated hemidiaphragm with bilateral basilar consolidation. Heart size stable. No pneumot horax. Positioning limits the exam. Hypertrophic change of the spine. Heart appears enlarged. IMPRESSION: 1. Bibasilar infiltrates with elevated hemidiaphragm on the left. Findings able. 2. Cardiomegaly central interstitial venous congestion or pneumonitis in the differential diagnosis.
[2020-05-27] MEDS: FERROUS SULFATE 325 MG TAB PO SCH (08:43)
[2020-05-27] MEDS: GLIMEPIRIDE 1 MG TAB PO SCH (08:44)
[2020-05-27] MEDS: ASPIRIN 81 MG PO SCH (08:44)
[2020-05-27] MEDS: TAMSULOSIN 0.4 MG CAP.ER.24H PO SCH (08:44)
[2020-05-27] MEDS: CITALOPRAM HYDROBROMIDE 20 MG TAB PO SCH (08:44)
[2020-05-27] MEDS: GABAPENTIN 300 MG CAP PO SCH (08:44)
[2020-05-27] MEDS: APIXABAN 2.5 MG TABLET PO SCH ×2 (08:44→19:49)
[2020-05-27] MEDS: ATORVASTATIN 40 MG TAB PO SCH (08:44)
[2020-05-27] MEDS: hydrALAZINE HCL 50 MG TAB PO SCH ×3 (08:45→19:49)
[2020-05-27] MEDS: FUROSEMIDE 10 MG/ML 4 ML VIAL IV SCH (08:45)
[2020-05-27 09:09] LABS: Basophils % (A) 0 %; Eosinophils % (A) 0 %; HCT 27.1 % (39.0-53.0); HGB 9.2 gm/dL (13.0-17.5); Lymphocytes # (A) 0.6 k/uL (1.0-4.8); Lymphocytes % (A) 7 %; MCH 29.3 pg (25.0-35.0); MCHC 33.9 g/dL (31.0-37.0); MCV 86.5 fL (80.0-100.0); Mean Platelet Volume 9.3; Monocytes # (A) 0.8 k/uL (0-1.0); Monocytes % (A) 9 %; Neutrophils # (A) 6.9 k/uL (1.3-7.7); Neutrophils % (A) 83 %; Platelet Count 118 k/uL (150-450); RBC 3.13 m/uL (4.30-5.90); RDW 14.6 % (11.5-15.5); WBC 8.4 k/uL (3.8-10.6)
[2020-05-27 09:31] LABS: Potassium 5.7 mmol/L (3.5-5.1)
[2020-05-27] MEDS ORDERED: QUEtiapine 25 MG TAB PO PRN (10:38)
[2020-05-27 11:51] LABS: Glucose,Whole Blood 102 mg/dL (75-99)
--- NOTE | 2020-05-27 12:36 | P.PN ---
Subjective Progress Note Date: 05/27/20 HISTORY OF PRESENT ILLNESS: 05/26/2020 This is a 70-year-old male with a past medical history significant for coronary artery disease with PCI to proximal mid and distal RCA in 2018, hypertension, hyperlipidemia, paroxysmal atrial fibrillation, diabetes mellitus, TIA, chronic kidney disease, COPD, aortic stenosis, and former nicotine dependence. Patient follows in the office with Dr. Eng. We have been asked to see the patient in consultation for CHF. Patient examined at the bedside in the emergency room. Patient is alert and oriented 3 when asked, however he appears somewhat confused and is unable to give a thorough history of why he came to the emergency room. There is no family present at the time of examination. He continues to repeat that he had a tooth pulled yesterday. He denies chest pain or pressure. He reports mild shortness of breath. Denies dizziness or lightheadedness. EKG reveals sinus bradycardia with no signs of acute ischemia Chest xray moderate vascular congestion. Small bilateral pleural effusions. Severe cardiomegaly Laboratory data: WBC 9.1. Hemoglobin 9.5. Platelet count 119. D-dimer 0.65. Sodium 132. Potassium 5.6. BUN 68. Creatinine 3.94. Troponin negative 2. BNP 6960. Current home cardiac medications include hydralazine 50 g 3 times a day, amlodipine 10 mg daily, losartan 25 mg daily, Lasix 40 mg twice a day, Coreg 25 mg twice a day, Lipitor 40 mg daily, aspirin 81 mg daily, and Eliquis 2.5 mg twice a day Most recent echocardiogram obtained in April 2020 reveals ejection fraction 55-60%, mild aortic stenosis, mild mitral regurgitation, mild tricuspid regurgitation Cardiac catheterization history: November [address] Eng with successful stenting of distal RCA, mid RCA, and proximal RCA 05/27/2020 Patient examined at the bedside. He reports improvement in shortness of breath today. Denies chest pain or pressure. Creatinine 3.75, down from 3.94. Potassium 5.7. X-ray completed this morning reveals bibasilar infiltrates with elevated hemidiaphragm on the left. Cardiomegaly central interstitial venous congestion or pneumonitis in the differential diagnosis. PHYSICAL EXAM: VITAL SIGNS: Reviewed. GENERAL: Well-developed in no acute distress. HEENT: Head is normocephalic. Pupils are equal, round. Sclerae anicteric. Mucous membranes of the mouth are moist. Neck supple. No JVD or thyromegaly LUNGS: Respirations even and unlabored. Lungs diminished. HEART: Regular rate and rhythm. S1 and S2 heard. Systolic murmur noted. ABDOMEN: Soft. Nondistended. Nontender. EXTREMITIES: Normal range of motion. No clubbing or cyanosis. Peripheral pulses intact. Trace bilateral lower extremity edema NEUROLOGIC: Awake and alert. Oriented x 3. ASSESSMENT: Acute exacerbation of diastolic congestive heart failure, EF 55-60% Small bilateral pleural effusions Coronary artery disease with previous PCI to the RCA x 3, 2017 Mild aortic stenosis Paroxysmal atrial fibrillation, on anticoagulation with Eliquis Chronic kidney disease Peripheral vascular disease with previous left carotid endarterectomy Hypertension Hyperlipidemia COPD PLAN: Continue current cardiac medications Continue Eliquis for anticoagulation Continue telemetry monitoring IV Lasix discontinued per medicine. Nephrology consulted. Await evaluation. Daily weights Accurate I&O's Monitor kidney function Further recommendations pending patient course Nurse practitioner note has been reviewed by physician. Signing provider agrees with the documented findings, assessment, and plan of care. Objective - Vital Signs Vital signs: Vital Signs Temp 97.8 F 05/27/20 08:00 Pulse 62 05/27/20 11:15 Resp 16 05/27/20 08:00 BP 123/68 05/27/20 11:10 Pulse Ox 90 L 05/27/20 11:10 Intake & Output 05/26/20 05/27/20 05/27/20 18:59 06:59 18:59 Intake Total 10 Output Total 1125 475 Balance -1115 -475 Weight 123.377 kg 126 kg Intake: IV 10 0.9 10 Output: Urine 1125 475 Other: Voiding Method Indwelling Catheter Indwelling Catheter - Labs CBC & Chem 7: 05/27/20 07:19 05/27/20 07:19 Labs: Abnormal Lab Results - Last 24 Hours (Table) 05/26/20 05/27/20 05/27/20 Range/Units 20:14 01:29 06:17 RBC (4.30-5.90) m/uL Hgb (13.0-17.5) gm/dL Hct (39.0-53.0) % Plt Count (150-450) k/uL Lymphocytes # (1.0-4.8) k/uL ABG pH 7.26 L (7.35-7.45) ABG pCO2 55 H (35-45) mmHg ABG pO2 73 L (83-108) mmHg ABG Total CO2 27 H (19-24) mmol/L Sodium (137-145) mmol/L Potassium (3.5-5.1) mmol/L Carbon Dioxide (22-30) mmol/L BUN (9-20) mg/dL Creatinine (0.66-1.25) mg/dL POC Glucose (mg/dL) 253 H 108 H (75-99) mg/dL Calcium (8.4-10.2) mg/dL 05/27/20 05/27/20 05/27/20 Range/Units 07:19 07:19 11:46 RBC 3.13 L (4.30-5.90) m/uL Hgb 9.2 L (13.0-17.5) gm/dL Hct 27.1 L (39.0-53.0) % Plt Count 118 L (150-450) k/uL Lymphocytes # 0.6 L (1.0-4.8) k/uL ABG pH (7.35-7.45) ABG pCO2 (35-45) mmHg ABG pO2 (83-108) mmHg ABG Total CO2 (19-24) mmol/L Sodium 131 L (137-145) mmol/L Potassium 5.7 H (3.5-5.1) mmol/L Carbon Dioxide 21 L (22-30) mmol/L BUN 81 H (9-20) mg/dL Creatinine 3.75 H (0.66-1.25) mg/dL POC Glucose (mg/dL) 102 H (75-99) mg/dL Calcium 8.0 L (8.4-10.2) mg/dL Microbiology - Last 24 Hours (Table) 05/26/20 05:15 Blood Culture - Preliminary Blood No Growth after 24 hours
--- NOTE | 2020-05-27 13:07 | P.PN ---
Subjective Progress Note Date: 05/27/20 Principal diagnosis: Lower extremity pain, neuropathy, shortness of breath, encephalopathy 70-year-old white male patient who was familiar to our service from his previous admissions to the hospital for complications related to his underlying congestive heart failure, previous episodes of pneumonia. Patient has multiple medical problems including diabetes mellitus with peripheral neuropathy, obstructive sleep apnea syndrome, hypertension, osteoarthritis, GERD/reflux, prior history of CVA, coronary artery disease with prior stent placement, chronic kidney disease. Patient was recently in the hospital, from 2020 through 05/21/2020 for acute exacerbation of CHF and possibility of bilateral healthcare acquired pneumonia. Patient was discharged home in a stable co ndition with a guarded prognosis. Patient was treated with cefepime and vancomycin and sent home on Augmentin, he is on maintenance dose of oral Lasix 40 mg twice a day, he is on oral anticoagulation for history of paroxysmal atrial fibrillation, and he is on nebulized bronchodilators. He denied any worsened dyspnea, he states the reason he is here today is for evaluation of his neuropathy and his sore feet. His chest x-ray in emergency department showed elevation of the left hemidiaphragm, moderate vascular congestion, small bilateral pleural effusions, changes consistent with acute exacerbation of CHF. He was tested for COVID 19 and was found to be negative. He is in sinus mechanism on the monitor, he denied any chest pain, no fever or chills, no wheezing or increased phlegm production, however he does have a congestive nonproductive cough, today's labs have been reviewed showing white blood cell count of 9.5, hemoglobin is 9.8, d-dimer 0.65, sodium is 129, potassium is 5.6, chloride is 94, B1 is 68 creatinine is 3.9, lactic acid is 0.9, LFTs are within normal limits, troponin is negative 2 at less than 0.012, proBNP was elevated at 6960. His had no fever or chills, he is sitting up on the edge of the bed, awaiting a bed on selective care unit, is being followed by cardiology. He was already initiated on IV Lasix per cardiology. On 05/27/2020 patient seen in follow-up on selective care unit, he is sitting up in a chair, in no acute distress, a bit drowsy, but easily arousable, he was oriented to person, place and time. Apparently last night he was more confused, restless and did receive some Ativan. he seems better this morning. Answering questions appropriately, denies any worsening dyspnea, he is currently on 3 L of oxygen pulse ox is 93%, his lung sounds are sounding better on today's exam, minimal wheezing, she continues on diuretics, he is in -1.1 L fluid balance over the last 24 hours. Follow-up chest x-ray shows bibasilar infiltrates with eleva ricardo left hemidiaphragm, and cardiomegaly with central interstitial venous congestion. Today's labs have been reviewed, creatinine is 3.75, slight improvement from yesterday. Objective - Vital Signs Vital signs: Vital Signs Temp 97.8 F 05/27/20 08:00 Pulse 62 05/27/20 11:15 Resp 16 05/27/20 08:00 BP 123/68 05/27/20 11:10 Pulse Ox 90 L 05/27/20 11:10 Intake & Output 05/26/20 05/27/20 05/27/20 18:59 06:59 18:59 Intake Total 10 Output Total 1125 475 Balance -1115 -475 Weight 123.377 kg 126 kg Intake: IV 10 0.9 10 Output: Urine 1125 475 Other: Voiding Method Indwelling Catheter Indwelling Catheter - Exam GENERAL EXAM: Alert, very pleasant, 70-year-old white male on 3 L of oxygen a pulse ox of 93% comfortable in no apparent distress. HEAD: Normocephalic/atraumatic. EYES: Normal reaction of pupils, equal size. Conjunctiva pink, sclera white. NOSE: Clear with pink turbinates. THROAT: No erythema or exudates. NECK: No masses, no JVD, no thyroid enlargement, no adenopathy. CHEST: No chest wall deformity. Symmetrical expansion. LUNGS: Equal air entry with no crackles, wheeze, rhonchi or dullness. CVS: Regular rate and rhythm, normal S1 and S2, no gallops, no murmurs, no rubs ABDOMEN: Soft, nontender. No hepatosplenomegaly, normal bowel sounds, no guarding or rigidity. EXTREMITIES: No clubbing, trace pretibial edema, no cyanosis, 2+ pulses and upper and lower extremities. MUSCULOSKELETAL: Muscle strength and tone normal. SPINE: No scoliosis or deformity SKIN: No rashes CENTRAL NERVOUS SYSTEM: Alert and oriented -3. No focal deficits, tone is normal in all 4 extremities. PSYCHIATRIC: Alert and oriented -3. Appropriate affect. Intact judgment and insight. - Labs CBC & Chem 7: 05/27/20 07:19 05/27/20 07:19 Labs: Abnormal Lab Results - Last 24 Hours (Table) 05/26/20 05/27/20 05/27/20 Range/Units 20:14 01:29 06:17 RBC (4.30-5.90) m/uL Hgb (13.0-17.5) gm/dL Hct (39.0-53.0) % Plt Count (150-450) k/uL Lymphocytes # (1.0-4.8) k/uL ABG pH 7.26 L (7.35-7.45) ABG pCO2 55 H (35-45) mmHg ABG pO2 73 L (83-108) mmHg ABG Total CO2 27 H (19-24) mmol/L Sodium (137-145) mmol/L Potassium (3.5-5.1) mmol/L Carbon Dioxide (22-30) mmol/L BUN (9-20) mg/dL Creatinine (0.66-1.25) mg/dL POC Glucose (mg/dL) 253 H 108 H (75-99) mg/dL Calcium (8.4-10.2) mg/dL 05/27/20 05/27/20 05/27/20 Range/Units 07:19 07:19 11:46 RBC 3.13 L (4.30-5.90) m/uL Hgb 9.2 L (13.0-17.5) gm/dL Hct 27.1 L (39.0-53.0) % Plt Count 118 L (150-450) k/uL Lymphocytes # 0.6 L (1.0-4.8) k/uL ABG pH (7.35-7.45) ABG pCO2 (35-45) mmHg ABG pO2 (83-108) mmHg ABG Total CO2 (19-24) mmol/L Sodium 131 L (137-145) mmol/L Potassium 5.7 H (3.5-5.1) mmol/L Carbon Dioxide 21 L (22-30) mmol/L BUN 81 H (9-20) mg/dL Creatinine 3.75 H (0.66-1.25) mg/dL POC Glucose (mg/dL) 102 H (75-99) mg/dL Calcium 8.0 L (8.4-10.2) mg/dL Microbiology - Last 24 Hours (Table) 05/26/20 05:15 Blood Culture - Preliminary Blood No Growth after 24 hours Assessment and Plan Plan: Assessment: #1. Acute exacerbation of diastolic CHF, COVID 19 negative #2. Dyspnea, and acute hypoxia, related to the above #3. Recent history of hospitalization for acute exacerbation of diastolic CHF and possibility of healthcare acquired pneumonia, patient was discharged home in stable condition but guarded prognosis on 05/21/2020 #4. Diabetes mellitus type II, and patient has complained of sore feet possibly related to underlying diabetic neuropathy #5. Coronary artery disease with previous stenting #6. Hypertension #7. hyperlipidemia #8. Chronic kidney disease #9. History of aortic stenosis #10. Possibility of underlying COPD in view of patient's history of smoking #11. History of osteoarthritis #12. History of CVA #13. History of obstructive sleep apnea syndrome Plan: Continue current medical treatment, follow-up labs tomorrow, continue diuretics breathing treatments. Maintain safety precautions. Patient is improving in terms of breathing. Nursing staff reports possibility of aspiration, and speech evaluation consultation will be obtained. We'll continue to follow I performed a history & physical examination of the patient and discussed their management with my nurse practitioner, Gladys Rodriguez. I reviewed the nurse practitioner's note and agree with the documented findings and plan of care. Lung sounds are positive for congestive cough, mild wheezing. The findings and the impression was discussed with the patient. I attest to the documentation by the nurse practitioner. Time with Patient: Less than 30
--- NOTE | 2020-05-27 13:27 | P.CNNES ---
History of Present Illness Consult date: 05/27/20 Requesting physician: Dane Chowdary Reason for Consult: Tremors, history of seizure disorder History of Present Illness: Patient is a 70-year-old male came to the hospital yesterday at 4:53 AM, admitted for acute renal failure, COPD, CHF hypoxia and weakness. Neurology was consulted for tremors and possible history of tremors. Patient apparently had acute renal failure, and also on multiple medications as listed below. Patient is having myoclonic jerks, likely because of an embolic dysfunction. Regarding seizures, patient states that he never had any history of seizures. He used to have jerks for which she was placed on Keppra by his primary physician. Patient denies any focal symptoms. Vital signs on arrival blood pressure 113/54, pulse rate 60, temperature 97.8, EKG shows sinus bradycardia, nonspecific ST abnormality. Chest x-ray showed severe cardiomegaly, no pneumothorax moderate vascular congestion. Small bilateral pleural effusion. This morning chest x-ray showed bibasilar infiltrates with elevated hemidiaphragm on the left. Findings stable. Cardiomegaly with central interstitial venous congestion or pneumonitis in the differential diagnosis. Blood test shows normal WBC hemoglobin 9.8, platelets 120, PT/PTT shows INR 1.2, PTT and 7.2 sodium 139, potassium 5.6, BUN 68, creatinine 3.95, hepatic panel normal, troponin negative. Ayala virus PCR negative. C-reactive protein 11.5. ABG shows pH 7.26, pCO2 55, pO2 73 and saturation 94%. This morning sodium is 131 potassium 5.7. Patient's last hemoglobin A1c 6.5 on 05/08/2020. Patient at home is on gabapentin 600 mg twice a day, Coreg 25 mg twice a day, Celexa 40 mg, Keppra 750 mg twice a day, tramadol 50 mg 4 times a day aspirin 81 mg, Lasix, Lipitor 40 mg, Pepcid 20 mg, Apixaban 2.5 mg twice a day. Patient has history of smoking 4 packs per day for 10 years, quit in 1994. He denies any alcohol or drugs. Patient has diabetes and hypertension for 20 years. He states that he takes Neurontin for pain in his feet for last 15 years. He tried Lyrica in the past, but produced significant fluid retention. Review of Systems Shortness of breath, tiredness, weight gain, fluid retention. Patient has some cough, congestion. Denies fever or chills. Denies any double vision, loss of vision. All other review of systems reviewed and noncontributory. Past Medical History Past Medical History: COPD, CVA/TIA, Diabetes Mellitus, GERD/Reflux, Hypertensio n, Osteoarthritis (OA), Sleep Apnea/CPAP/BIPAP Additional Past Medical History / Comment(s): having "stomach pain for 4 months",has cpap, TIA years ago, on 05-23-19 episode of confusion,slurred speech,tremors, oxygen use History of Any Multi-Drug Resistant Organisms: None Reported Past Surgical History: Cholecystectomy, Heart Catheterization With Stent, Hernia Repair, Orthopedic Surgery Additional Past Surgical History / Comment(s): heart stents x 3,carpal tunnel, left carotid endarterectomy, RIGHT HIP with pin, rt shoulder, umbilical hernia, CTS shayna x2 Past Anesthesia/Blood Transfusion Reactions: No Reported Reaction Date of Last Stent Placement:: 12-10-17 Smoking Status: Former smoker - Past Family History Mother Family Medical History: Cancer Additional Family Medical History / Comment(s): Stomach cancer Father History Unknown: Yes Additional Family Medical History / Comment(s): ETOH abuse Medications and Allergies Home Medications Medication Instructions Recorded Confirmed Type amLODIPine BESYLATE [Amlodipine 10 mg PO DAILY 10/26/15 05/26/20 History Besylate] Gabapentin 600 mg PO BID 10/25/18 05/26/20 History Carvedilol [Coreg] 25 mg PO BID 01/26/20 05/26/20 History Ferrous Sulfate [Feosol] 325 mg PO DAILY 01/26/20 05/26/20 History Glimepiride [Amaryl] 1 mg PO DAILY 01/26/20 05/26/20 History Dicyclomine [Bentyl] 20 mg PO TID PRN #20 tablet 02/04/20 05/26/20 Rx Citalopram Hydrobromide [CeleXA] 40 mg PO DAILY 05/15/20 05/26/20 History levETIRAcetam [Keppra] 750 mg PO BID 05/15/20 05/26/20 History traMADol HCL 50 mg PO QID 05/15/20 05/26/20 History Apixaban [Eliquis] 2.5 mg PO BID #60 tablet 05/21/20 05/26/20 Rx Aspirin 81 mg PO DAILY chew 05/21/20 05/26/20 Rx Atorvastatin [Lipitor] 40 mg PO DAILY #30 tab 05/21/20 05/26/20 Rx Famotidine [Pepcid] 20 mg PO DAILY tab 05/21/20 05/26/20 Rx Furosemide [Lasix] 40 mg PO BID@0900,1600 #60 tab 05/21/20 05/26/20 Rx Tamsulosin [Flomax] 0.4 mg PO PC-BRKFST #30 cap.er.24h 05/21/20 05/26/20 Rx hydrALAZINE HCL [Apresoline] 50 mg PO TID #90 tab 05/21/20 05/26/20 Rx Ipratropium-Albuterol Nebulize 3 ml INHALATION RT-QID 05/26/20 05/26/20 History [Duoneb 0.5 mg-3 mg/3 ml Soln] Lactobacillus Acidophilus 1 tab PO BID 05/26/20 05/26/20 History [Acidophilus] Losartan [Cozaar] 25 mg PO DAILY 05/26/20 05/26/20 History Allergies Allergy/AdvReac Type Severity Reaction Status Date / Time neomycin Allergy Itching Verified 05/26/20 06:58 Physical Examination - Vital Signs Vital Signs: Vital Signs Temp Pulse Pulse Resp BP BP Pulse Ox 05/27/20 09:41 93 L 05/27/20 09:03 92 L 05/27/20 08:00 97.8 F 63 16 139/62 90 L 05/27/20 07:40 63 05/27/20 07:30 60 05/27/20 04:00 97.3 F L 69 18 140/61 94 L 05/27/20 03:34 71 05/27/20 03:23 69 05/27/20 02:00 71 18 05/26/20 23:39 71 18 05/26/20 23:23 65 05/26/20 23:20 97.0 F L 71 18 113/56 100 05/26/20 23:10 65 05/26/20 21:04 68 05/26/20 20:53 66 05/26/20 20:00 97.4 F L 66 18 146/67 92 L 05/26/20 19:45 97.8 F 62 18 96/53 91 L 05/26/20 18:19 64 18 99/58 90 L 05/26/20 16:36 61 05/26/20 16:27 60 05/26/20 11:53 56 L 05/26/20 11:40 56 L 05/26/20 11:15 53 L 18 113/81 93 L Intake and Output 05/26/20 05/27/20 05/27/20 22:59 06:59 14:59 Intake Total 10 Output Total 625 500 Balance -615 -500 Intake: IV 10 0.9 10 Output: Urine 625 500 Other: Voiding Method Indwelling Catheter Indwelling Catheter Weight 123.377 kg On examination patient is an elderly male, in no acute distress. Patient is alert and awake. He is fully oriented, knows it is May 2020 that he is in [facility] and his age. Speech and language functions are normal. Attention, concentration, fund of knowledge is adequate. He has mildly hoarse voice. On cranial exertion pupils are round and reactive to light, visual pride are full to confrontation, extraocular muscles are intact with no nystagmus. Face is symmetric, tongue protrudes the midline. Palatal elevation and sensation normal, hearing is slightly decreased, shoulder shrug normal, facial sensation normal. On muscle strength testing there is no pronator drift and the strength is normal in arms and legs. Reflexes are 1+ to 2, and plantars downgoing. Sensory touch is equal. No ataxia for [id number] testing. Tone and bulk of muscles normal. He does have some myoclonic jerks of outstretc hed hands. Also very mild myoclonic jerks of the lower limbs. On general exam there is no obvious bruit, S1 and S2 audible, abdomen soft nontender. Patient has mild peripheral edema. Results - Laboratory Findings CBC and BMP: 05/27/20 07:19 05/27/20 07:19 Abnormal Lab Findings: Abnormal Labs 05/26/20 05/26/20 05/26/20 05:28 05:28 05:28 RBC 3.43 L Hgb 9.8 L Hct 30.5 L Plt Count 120 L Lymphocytes # 0.9 L PT 12.7 H INR 1.2 H D-Dimer 0.65 H ABG pH ABG pCO2 ABG pO2 ABG Total CO2 Sodium 129 L Potassium 5.6 H Chloride 94 L Carbon Dioxide BUN 68 H Creatinine 3.95 H Glucose 202 H POC Glucose (mg/dL) Calcium 8.0 L Phosphorus C-Reactive Protein 11.5 H Total Protein 6.1 L 05/26/20 05/26/20 05/26/20 06:46 06:46 20:14 RBC 3.35 L Hgb 9.5 L Hct 29.7 L Plt Count 119 L Lymphocytes # 0.7 L PT INR D-Dimer ABG pH ABG pCO2 ABG pO2 ABG Total CO2 Sodium 132 L Potassium 5.6 H Chloride Carbon Dioxide BUN 68 H Creatinine 3.94 H Glucose 145 H POC Glucose (mg/dL) 253 H Calcium 7.7 L Phosphorus 6.9 H C-Reactive Protein Total Protein 5.9 L 05/27/20 05/27/20 05/27/20 01:29 06:17 07:19 RBC Hgb Hct Plt Count Lymphocytes # PT INR D-Dimer ABG pH 7.26 L ABG pCO2 55 H ABG pO2 73 L ABG Total CO2 27 H Sodium 131 L Potassium 5.7 H Chloride Carbon Dioxide 21 L BUN 81 H Creatinine 3.75 H Glucose POC Glucose (mg/dL) 108 H Calcium 8.0 L Phosphorus C-Reactive Protein Total Protein 05/27/20 07:19 RBC 3.13 L Hgb 9.2 L Hct 27.1 L Plt Count 118 L Lymphocytes # 0.6 L PT INR D-Dimer ABG pH ABG pCO2 ABG pO2 ABG Total CO2 Sodium Potassium Chloride Carbon Dioxide BUN Creatinine Glucose POC Glucose (mg/dL) Calcium Phosphorus C-Reactive Protein Total Protein Assessment and Plan Assessment: * Myoclonic jerks, likely due to metabolic dysfunction. Patient's mentation at this time is clear, although sometimes he is slightly confused, suggestive of mild metabolic encephalopathy as well. Acute renal failure, anemia, acidosis, mild hypercapnia and electrolyte imbalance are the likely causes. * Acute exacerbation of diastolic CHF * Diabetes type 2 with mild diabetic peripheral neuropathy * Coronary artery disease * Hypertension * Acute on chronic renal failure * Osteoarthritis * Obstructive sleep apnea * No reported history of seizure disorder Plan: * Patient's myoclonic jerks are likely related to metabolic dysfunction. Hopefully once renal functions, CHF and other electrolyte imbalance improves, his metabolic encephalopathy and tremors/jerks will improve. * Patient states that he never has any history of seizures. Keppra was given for myoclonic jerks. Keppra is also eliminated by kidneys, and renal failure can lead to accumulation of Keppra. We will decrease Keppra to 500 mg twice a day. * Patient has been on Neurontin 600 mg twice a day for long time. I would decrease dose of Neurontin to 200 mg twice a day, rather than completely stopping it, as completely stopping Neurontin can produce withdrawal symptoms. * We will check B12, folate. Keppra level is pending.
--- NOTE | 2020-05-27 13:50 | FL ---
COMPARISON: NONE DATE OF EXAM: 05/27/2020 HISTORY: Dysphasia A number of thin and thick substances were ingested under the care of the department of speech pathol ogy. There is no evidence of aspiration or penetration. There is no evidence of obstruction. 1.43 minutes of fluoroscopy time and no images submitted. IMPRESSION: 1. No evidence of aspiration or penetration.
--- NOTE | 2020-05-27 14:26 | CONS ---
CONSULTATION REASON FOR CONSULTATION: Renal failure. HISTORY OF PRESENT ILLNESS: Patient is a 70-year-old male with history of chronic kidney disease with previous creatinine at about 2.6-2.7 mg/dL all the way back to 2019, CKD stage 4. Patient was admitted to the hospital with worsening mentation, increased weakness. He was recently hospitalized with pneumonia at the end of April. A COVID test was negative at that time. The patient was evaluated by us at that time as well. His renal function at that time remained quite stable with serum creatinine staying at about 2.5 mg/dL. Admission was mainly for pneumonia. This time it appears that the patient was short of breath on initial admission. However, his breathing has improved. Chest x-ray does not show any significant findings of CHF. The patient is maintained on Lasix. His blood pressure has been systolic about 113 to 130 mmHg and none below 100. The patient has an indwelling Wood catheter. Urine output noted to be 475 mL since last night. I do not see any nonsteroidal anti-inflammatory agents on his medication list; however, he was maintained on Cozaar. PAST MEDICAL HISTORY: Significant for CKD stage 4, hypertension, COPD, history of CVA/TIA, type 2 diabetes, gastroesophageal reflux disease, osteoarthritis, obstructive sleep apnea, recent pneumonia. PAST SURGICAL HISTORY: Cholecystectomy, cardiac catheterization, coronary stent placement, hernia repair, left carotid endarterectomy, right hip surgery, right shoulder surgery. SOCIAL HISTORY: Patient is a former smoker. No history of drug abuse or alcohol abuse. MEDICATIONS: Medications prior to admission include amlodipine, gabapentin, Coreg, iron, Amaryl, Bentyl, Celexa, Keppra, tramadol, Eliquis, Lipitor, aspirin, Pepcid, Lasix Flomax, hydralazine, Cozaar, lactobacillus. ALLERGIES: NEOMYCIN, which causes itching. REVIEW OF SYSTEMS: As per HPI. Other systems negative. PHYSICAL EXAMINATION: The patient is currently comfortable. He is somewhat confused, but mentation has improved. He is not in any acute distress. Blood pressure this morning 123/68, heart rate 63 per minute. He is afebrile. EXAMINATION OF THE HEART: S1, S2. EXAMINATION OF LUNGS: Decreased breath sounds at bases. No crackles or wheezing is heard. Abdomen is soft, nontender, obese. Examination of lower extremities shows no significant edema. INFORMATION SCIENTIST exam shows patient is moving all 4 extremities. LABS: Labs show hemoglobin 9.2, white cell count 8.4, sodium 131, potassium 5.7, BUN 81, serum creatinine 3.75. ASSESSMENT: 1. Acute kidney injury on top of chronic kidney disease, possibly associated with some degree of hypoperfusion as systolic blood pressure has been on the lower side in the presence of angiotensin receptor blockers. No nephrotoxic agents noted. No obstruction as patient currently has an indwelling Wood catheter. His previous creatinine has been about 2.5 mg/dL for the last 2 years. Cozaar is currently on hold. I will hold off on the Lasix as well and we will repeat labs in a.m. 2. Hyperkalemia associated with acute kidney injury. No underlying obstruction noted. Recheck potassium this evening. Continue to hold off on Cozaar. Expect improvement with the potassium as patient has received IV Lasix this morning. 3. Chronic kidney disease stage 4 secondary to diabetic nephropathy. Serum creatinine about 2.5-2.7 mg/dL all the way back to 2019. 4. Mental status changes associated with possible toxic encephalopathy. Gabapentin dose needs to be decreased and we will hold off on the Ultram as well. 5. Paroxysmal atrial fibrillation, maintained on Eliquis. May continue at the current dose of 2.5 mg b.i.d. 6. Hypertension. Blood pressure is slightly on the lower side. PLAN: Decrease hydralazine to 50 mg b.i.d. and hold antihypertensive medications for systolic blood pressure less than 120. Repeat labs in a.m. Hold Lasix for now. Thank you for this consultation. Will continue to follow the patient with you during his hospitalization. MMODL / IJN: [id number] /
--- NOTE | 2020-05-27 15:16 | P.PN ---
Subjective 70-year-old male was admitted for generalized weakness and he discharged from the hospital after he was treated for healthcare associated pneumonia and chronic diastolic dysfunction. Patient is being treated for the same during this hospital physician patient is presently not on any antibiotics chest x-ray was consistent with interstitial prominence because of which patient is being treated with Lasix IV. Patient to creatinine continued to get worse serum sodium as well as a potassium continue to get worse potassium was elevated at 5.7 nephrology was subsequently consulted nephrology evaluated the patient. He. Patient clinically doesn't doesn't appear to be in CHF chest x-ray is not typical for CHF either because of which we're discontinuing the IV Lasix. Patient was tested for Covid 19 twice and was negative. Patient is also sever pamella encephalopathic which is toxic encephalopathy from medications. Because of the toxic encephalopathy patient also has myoclonic jerks. Patient creatinine is 3.3 and patient is also on 600 mg 3 times a day of Neurontin which is being discontinued now when his encephalopathy resolves it he can be started on a lower dose that is 100 mg by mouth because of his poor renal function patient is also on tramadol which is being discontinued. Patient apparently had seizures in the past because of which patient is on Keppra because of this reason he will not be a candidate for continuation of tramadol. Tramadol can also cause myoclonic jerks. Patient was completely confused a year in the day bit better. Patient also received Ativan which will be discontinued and will use Seroquel for agitation if needed at nighttime. Patient is more awake alert oriented 2-3 when I evaluated the patient and able to provide answers be less encephalopathic when I evaluated the patient. Constitutional: Denied any fatigue denied any fever. Cardio vascular: denied any chest pain, palpitations Gastrointestinal denied any nausea vomiting Pulmonary: Denied any shortness of breath cough Neurologic denied any new focal deficits All inpatient medications were reviewed and appropriate changes in these medica tions as dictated in the interval history and assessment and plan. Objective - Vital Signs Vital signs: Vital Signs Temp 97.8 F 05/27/20 08:00 Pulse 62 05/27/20 11:15 Resp 16 05/27/20 08:00 BP 123/68 05/27/20 11:10 Pulse Ox 90 L 05/27/20 11:10 Intake & Output 05/26/20 05/27/20 05/27/20 18:59 06:59 18:59 Intake Total 10 240 Output Total 1125 475 Balance -1115 -235 Weight 123.377 kg 126 kg Intake: IV 10 0.9 10 Oral 240 Output: Urine 1125 475 Other: Voiding Method Indwelling Catheter Indwelling Catheter - Exam PHYSICAL EXAMINATION: GENERAL: The patient is alert and oriented x2-3, not in any acute distress. Well developed, well nourished. Appears to be tired fatigued HEENT: Pupils are round and equally reacting to light. EOMI. No scleral icterus. No conjunctival pallor. Normocephalic, atraumatic. No pharyngeal erythema. No thyromegaly. CARDIOVASCULAR: S1 and S2 present. No murmurs, rubs, or gallops. PULMONARY: Chest is clear to auscultation, no wheezing or crackles. ABDOMEN: Soft, nontender, nondistended, normoactive bowel sounds. No palpable organomegaly. MUSCULOSKELETAL: No joint swelling or deformity. EXTREMITIES: No cyanosis, clubbing, or pedal edema. NEUROLOGICAL: Does have significant generalized weakness does have mild myoclonic activity. SKIN: No rashes. - Labs CBC & Chem 7: 05/27/20 07:19 05/27/20 07:19 Labs: Abnormal Lab Results - Last 24 Hours (Table) 05/26/20 05/27/20 05/27/20 Range/Units 20:14 01:29 06:17 RBC (4.30-5.90) m/uL Hgb (13.0-17.5) gm/dL Hct (39.0-53.0) % Plt Count (150-450) k/uL Lymphocytes # (1.0-4.8) k/uL ABG pH 7.26 L (7.35-7.45) ABG pCO2 55 H (35-45) mmHg ABG pO2 73 L (83-108) mmHg ABG Total CO2 27 H (19-24) mmol/L Sodium (137-145) mmol/L Potassium (3.5-5.1) mmol/L Carbon Dioxide (22-30) mmol/L BUN (9-20) mg/dL Creatinine (0.66-1.25) mg/dL POC Glucose (mg/dL) 253 H 108 H (75-99) mg/dL Calcium (8.4-10.2) mg/dL 03/11/21 03/11/21 03/11/21 Range/Units 07:19 07:19 11:46 RBC 3.13 L (4.30-5.90) m/uL Hgb 9.2 L (13.0-17.5) gm/dL Hct 27.1 L (39.0-53.0) % Plt Count 118 L (150-450) k/uL Lymphocytes # 0.6 L (1.0-4.8) k/uL ABG pH (7.35-7.45) ABG pCO2 (35-45) mmHg ABG pO2 (83-108) mmHg ABG Total CO2 (19-24) mmol/L Sodium 131 L (137-145) mmol/L Potassium 5.7 H (3.5-5.1) mmol/L Carbon Dioxide 21 L (22-30) mmol/L BUN 81 H (9-20) mg/dL Creatinine 3.75 H (0.66-1.25) mg/dL POC Glucose (mg/dL) 102 H (75-99) mg/dL Calcium 8.0 L (8.4-10.2) mg/dL Microbiology - Last 24 Hours (Table) 05/26/20 05:15 Blood Culture - Preliminary Blood No Growth after 24 hours Assessment and Plan Plan: -Toxic encephalopathy leading to myoclonic activity: Offending agents like, and all, gabapentin were discontinued Ativan will be discontinued will use Seroquel on as-needed basis for agitation. -Acute renal failure on chronic kidney disease stage IV acute renal failure seco ndary to excessive diuresis which is which is being discontinued -Congestive heart failure possible chronic diastolic dysfunction exacerbation on admission presently hypovolemic holding off on diuretic therapy -Type 2 diabetes mellitus -Diabetic peripheral neuropathy -Coronary artery disease -Hypertension -Hyperlipidemia -Hyperkalemia secondary to acute renal failure -COPD without any acute exacerbation -Recently treated pneumonia -Generalized weakness secondary to toxic encephalopathy in the recent hospitalization -History of CVA patient had a carotid endarterectomy in the past -Obstructive sleep apnea -Paroxysmal A. fib atrial fibrillation for which patient is on anticoagulation with Eliquis.
[2020-05-27 16:52] LABS: Glucose,Whole Blood 112 mg/dL (75-99)
[2020-05-27] MEDS: HYDROcodone/APAP 5-325MG 1 EACH TAB PO PRN (17:46)
[2020-05-27] MEDS: levETIRAcetam 500 MG TAB PO SCH (19:49)
[2020-05-27] MEDS: GABAPENTIN 100 MG CAP PO SCH (19:49)
[2020-05-27] MEDS ORDERED: IPRATROPIUM-ALBUTEROL 3 ML NEB INHALATION PRN (20:49)
[2020-05-27] MEDS ORDERED: GABAPENTIN 100 MG CAP PO SCH (21:00)
[2020-05-28 04:06] LABS: Folate, Serum 17.1 ng/mL
[2020-05-28] MEDS: HYDROcodone/APAP 5-325MG 1 EACH TAB PO PRN ×2 (06:22→12:30)
[2020-05-28] MEDS: carvediloL 12.5 MG TAB PO SCH ×2 (06:22→16:57)
[2020-05-28 06:42] LABS: Glucose,Whole Blood 111 mg/dL (75-99)
[2020-05-28] MEDS: IPRATROPIUM-ALBUTEROL 3 ML NEB INHALATION SCH ×4 (07:33→19:43)
--- NOTE | 2020-05-28 08:51 | P.PN ---
Subjective 70-year-old male was admitted for generalized weakness and he discharged from the hospital after he was treated for healthcare associated pneumonia and chronic diastolic dysfunction. Patient is being treated for the same during this hospital physician patient is presently not on any antibiotics chest x-ray was consistent with interstitial prominence because of which patient is being treated with Lasix IV. Patient to creatinine continued to get worse serum sodium as well as a potassium continue to get worse potassium was elevated at 5.7 nephrology was subsequently consulted nephrology evaluated the patient. He. Patient clinically doesn't doesn't appear to be in CHF chest x-ray is not typical for CHF either because of which we're discontinuing the IV Lasix. Patient was tested for Covid 19 twice and was negative. Patient is also sever pamella encephalopathic which is toxic encephalopathy from medications. Because of the toxic encephalopathy patient also has myoclonic jerks. Patient creatinine is 3.3 and patient is also on 600 mg 3 times a day of Neurontin which is being discontinued now when his encephalopathy resolves it he can be started on a lower dose that is 100 mg by mouth because of his poor renal function patient is also on tramadol which is being discontinued. Patient apparently had seizures in the past because of which patient is on Keppra because of this reason he will not be a candidate for continuation of tramadol. Tramadol can also cause myoclonic jerks. Patient was completely confused a year in the day bit better. Patient also received Ativan which will be discontinued and will use Seroquel for agitation if needed at nighttime. Patient is more awake alert oriented 2-3 when I evaluated the patient and able to provide answers be less encephalopathic when I evaluated the patient. 05/28/2020 Patient the has significant clinical improvement today patient is alert oriented almost 3 today. Patient denied any fever chills. Patient creatinine did improve a bit. Patient is much less encephalopathic. But had an episode of confusion last night. Constitutional: Denied any fatigue denied any fever. Cardio vascular: denied any chest pain, palpitations Gastrointestinal denied any nausea vomiting Pulmonary: Denied any shortness of breath cough Neurologic denied any new focal deficits All inpatient medications were reviewed and appropriate changes in these medications as dictated in the interval history and assessment and plan. Objective - Vital Signs Vital signs: Vital Signs Temp 97.9 F 05/28/20 04:24 Pulse 58 L 05/28/20 07:44 Resp 16 05/28/20 04:24 BP 138/68 05/28/20 06:21 Pulse Ox 96 05/28/20 04:24 Intake & Output 05/27/20 05/28/20 05/28/20 18:59 06:59 18:59 Intake Total 420 660 Output Total 1025 800 Balance -605 -140 Weight 126 kg 72.7 kg Intake: Oral 420 660 Output: Urine 1025 800 Other: Voiding Method Indwelling Catheter Indwelling Catheter - Exam PHYSICAL EXAMINATION: GENERAL: The patient is alert and oriented x3, not in any acute distress. Well developed, well nourished. Much more awake HEENT: Pupils are round and equally reacting to light. EOMI. No scleral icterus. No conjunctival pallor. Normocephalic, atraumatic. No pharyngeal erythema. No thyromegaly. CARDIOVASCULAR: S1 and S2 present. No murmurs, rubs, or gallops. PULMONARY: Chest is clear to auscultation, no wheezing or crackles. ABDOMEN: Soft, nontender, nondistended, normoactive bowel sounds. No palpable organomegaly. MUSCULOSKELETAL: No joint swelling or deformity. EXTREMITIES: No cyanosis, clubbing, or pedal edema. NEUROLOGICAL: Does have significant generalized weakness does have mild myoclonic activity. SKIN: No rashes. - Labs CBC & Chem 7: 05/27/20 07:19 05/27/20 07:19 Labs: Abnormal Lab Results - Last 24 Hours (Table) 05/27/20 05/27/20 05/27/20 Range/Units 07:19 07:19 11:46 RBC 3.13 L (4.30-5.90) m/uL Hgb 9.2 L (13.0-17.5) gm/dL Hct 27.1 L (39.0-53.0) % Plt Count 118 L (150-450) k/uL Lymphocytes # 0.6 L (1.0-4.8) k/uL Sodium 131 L (137-145) mmol/L Potassium 5.7 H (3.5-5.1) mmol/L Carbon Dioxide 21 L (22-30) mmol/L BUN 81 H (9-20) mg/dL Creatinine 3.75 H (0.66-1.25) mg/dL POC Glucose (mg/dL) 102 H (75-99) mg/dL Calcium 8.0 L (8.4-10.2) mg/dL 05/27/20 05/28/20 Range/Units 16:51 06:40 RBC (4.30-5.90) m/uL Hgb (13.0-17.5) gm/dL Hct (39.0-53.0) % Plt Count (150-450) k/uL Lymphocytes # (1.0-4.8) k/uL Sodium (137-145) mmol/L Potassium (3.5-5.1) mmol/L Carbon Dioxide (22-30) mmol/L BUN (9-20) mg/dL Creatinine (0.66-1.25) mg/dL POC Glucose (mg/dL) 112 H 111 H (75-99) mg/dL Calcium (8.4-10.2) mg/dL Microbiology - Last 24 Hours (Table) 05/26/20 05:15 Blood Culture - Preliminary Blood No Growth after 48 hours Assessment and Plan Plan: -Toxic encephalopathy leading to myoclonic activity: Offending agents like, and all, gabapentin were discontinued Ativan will be discontinued on 05/28/2020 will use Seroquel on as-needed basis for agitation. Patient is a doing much better t neeru. -Dysphagia with possibility of aspiration although aspiration was not evident on the chest x-ray. Patient underwent be therapy evaluation and barium swallow. Speech therapy is recommending thin liquid by straw, neck: Neck to liquid by cup pured food and regular solids. There is no evidence of aspiration on the barium swallow -Acute renal failure on chronic kidney disease stage IV acute renal failure secondary to excessive diuresis which is which was discontinued kidney function did improve a bit -Congestive heart failure possible chronic diastolic dysfunction exacerbation on admission presently hypovolemic holding off on diuretic therapy -Type 2 diabetes mellitus -Diabetic peripheral neuropathy -Coronary artery disease -Hypertension -Hyperlipidemia -Hyperkalemia secondary to acute renal failure -COPD without any acute exacerbation -Recently treated pneumonia -Generalized weakness secondary to toxic encephalopathy in the recent hospitalization. Physical therapy and occupational evaluation -History of CVA patient had a carotid endarterectomy in the past -Obstructive sleep apnea -Paroxysmal A. fib atrial fibrillation for which patient is on anticoagulation with Eliquis.
[2020-05-28] MEDS: CITALOPRAM HYDROBROMIDE 20 MG TAB PO SCH (08:57)
[2020-05-28] MEDS: GABAPENTIN 100 MG CAP PO SCH ×2 (08:57→19:43)
[2020-05-28] MEDS: TAMSULOSIN 0.4 MG CAP.ER.24H PO SCH (08:57)
[2020-05-28] MEDS: ATORVASTATIN 40 MG TAB PO SCH (08:57)
[2020-05-28] MEDS: FERROUS SULFATE 325 MG TAB PO SCH (08:57)
[2020-05-28] MEDS: hydrALAZINE HCL 50 MG TAB PO SCH ×3 (08:57→19:43)
[2020-05-28] MEDS: levETIRAcetam 500 MG TAB PO SCH ×2 (08:57→19:43)
[2020-05-28] MEDS: APIXABAN 2.5 MG TABLET PO SCH ×2 (08:57→19:43)
[2020-05-28] MEDS: ASPIRIN 81 MG PO SCH (08:57)
[2020-05-28] MEDS: GLIMEPIRIDE 1 MG TAB PO SCH (08:57)
--- NOTE | 2020-05-28 11:04 | P.PN ---
Subjective This is a pleasant 70-year-old male past medical history significant for coronary artery disease status post PCI to the proximal mid and distal RCA in 2018, hypertension, dyslipidemia, paroxysmal atrial fibrillation on long-term anticoagulation, diabetes mellitus, TIA, chronic kidney disease, COPD, aortic stenosis and former nicotine dependence. He follows in the office with Dr. Eng. He is seen and examined sitting up in the chair in no acute distress. Overall his breathing is improving daily. Nephrology is managing his diuretics. Blood pressure 104/54 heart rate 58 afebrile maintaining oxygen saturation on room air. Currently maintained on Eliquis 2.5 mg twice a day, aspirin 81 mg daily, atorvastatin 40 mg daily, Coreg 25 mg daily and hydralazine 50 mg 3 times a day. GENERAL: Well-appearing, well-nourished and in no acute distress. NECK: Supple without JVD or thyromegaly. LUNGS: Breath sounds clear to auscultation bilaterally. Respiration equal and unlabored. No wheezes, rales or rhonchi. Diminished bilaterally. HEART: Regular rate and rhythm with systolic ejection murmur at the base, no rubs or gallops. S1 and S2 heard. EXTREMITIES: Normal range of motion, trace bilateral lower extremity nonpitting edema. No clubbing or cyanosis. Peripheral pulses intact. ASSESSMENT Acute on chronic heart failure with preserved ejection fraction Aortic stenosis, mild Coronary artery disease s/p PCI Paroxysmal atrial fibrillation on long-term anticoagulation currently maintaining sinus mechanism Chronic kidney disease Peripheral vascular disease Hypertension Dyslipidemia COPD PLAN Continue current medical regimen. Diuretic therapy per nephrology. Nurse Practitioner note has been reviewed, I agree with a documented findings and plan of care. Patient was seen and examined. Objective - Vital Signs Vital signs: Vital Signs Temp 97.9 F 05/28/20 04:24 Pulse 58 L 05/28/20 08:00 Resp 18 05/28/20 08:00 BP 104/54 05/28/20 08:00 Pulse Ox 96 05/28/20 04:24 Intake & Output 05/27/20 05/28/20 05/28/20 18:59 06:59 18:59 Intake Total 420 660 Output Total 1025 800 Balance -605 -140 Weight 126 kg 72.7 kg Intake: Oral 420 660 Output: Urine 1025 800 Other: Voiding Method Indwelling Catheter Indwelling Catheter Indwelling Catheter - Labs CBC & Chem 7: 05/27/20 07:19 05/27/20 07:19 Labs: Abnormal Lab Results - Last 24 Hours (Table) 05/27/20 05/27/20 05/28/20 Range/Units 11:46 16:51 06:40 POC Glucose (mg/dL) 102 H 112 H 111 H (75-99) mg/dL Microbiology - Last 24 Hours (Table) 05/26/20 05:15 Blood Culture - Preliminary Blood No Growth after 48 hours
[2020-05-28 11:55] LABS: Glucose,Whole Blood 217 mg/dL (75-99)
--- NOTE | 2020-05-28 13:25 | P.PN ---
Subjective Progress Note Date: 05/28/20 Patient was seen for a follow-up. Patient states his tremors are better. Patient states that he did walk a little. And his balance was fine. Telemetry monitoring showing sinus rhythm. No new concerns. Objective - Vital Signs Vital signs: Vital Signs Temp 97.9 F 05/28/20 04:24 Pulse 58 L 05/28/20 11:43 Resp 18 05/28/20 08:00 BP 144/64 05/28/20 11:43 Pulse Ox 93 L 05/28/20 11:43 Intake & Output 05/27/20 05/28/20 05/28/20 18:59 06:59 18:59 Intake Total 420 660 180 Output Total 1025 800 Balance -605 -140 180 Weight 126 kg 72.7 kg 125.5 kg Intake: Oral 420 660 180 Output: Urine 1025 800 Other: Voiding Method Indwelling Catheter Indwelling Catheter Indwelling Catheter # Voids 0 # Bowel Movements 0 - Exam On examination his mental status, speech and language functions are normal. Muscle strength is normal. Patient has mild myoclonic jerks of his outstretched arms still present. Slightly better than yesterday. - Labs CBC & Chem 7: 05/27/20 07:19 05/27/20 07:19 Labs: Abnormal Lab Results - Last 24 Hours (Table) 05/27/20 05/28/20 05/28/20 Range/Units 16:51 06:40 11:50 POC Glucose (mg/dL) 112 H 111 H 217 H (75-99) mg/dL Microbiology - Last 24 Hours (Table) 05/26/20 05:15 Blood Culture - Preliminary Blood No Growth after 48 hours Assessment and Plan Assessment: * Myoclonic jerks, likely due to metabolic dysfunction. Patient's mentation at this time is clear, although sometimes he is slightly confused, suggestive of mild metabolic encephalopathy as well. Acute renal failure, anemia, acidosis, mild hypercapnia and electrolyte imbalance are the likely causes. * Acute exacerbation of diastolic CHF * Diabetes type 2 with mild diabetic peripheral neuropathy * Coronary artery disease * Hypertension * Acute on chronic renal failure * Osteoarthritis * Obstructive sleep apnea * No reported history of seizure disorder Plan: * Patient's myoclonic jerks are likely related to metabolic dysfunction. Hopefully once renal functions, CHF and other electrolyte imbalance improves, his metabolic encephalopathy and tremors/jerks will improve. * Patient states that he never has any history of seizures. Keppra was given for myoclonic jerks. Keppra is also eliminated by kidneys, and renal failure can lead to accumulation of Keppra. We will decrease Keppra to 500 mg twice a day. * Patient has been on Neurontin 600 mg twice a day for long time. I would decrease dose of Neurontin to 200 mg twice a day, rather than completely stopping it, as completely stopping Neurontin can produce withdrawal symptoms. * B12 270, folate 17.1. Keppra level 35.6 (3-60). We will start B12 replacement. Keppra dose already has been decreased to 500 mg twice a day.
--- NOTE | 2020-05-28 14:35 | CDI ---
Documentation Clarification Form Date: 05/28/2020 02:24:02 PM From: Sue Snell CCS, CCDS Admit Date: 05/26/2020 06:15:00 AM Patient Name: Dane Shah Visit Number: [id number] Discharge Date: ATTENTION: The Clinical Documentation Specialists (CDI) and [facility] Coding Staff appreciate your assistance in clarifying documentation. Please respond to the clarification below the line at the bottom and electronically sign. The CDI & [facility] Coding staff will review the response and follow-up if needed. Please note: Queries are made part of the Legal Health Record. If you have any questions, please contact the author of this message via ITS. Dr. Morales Miramontes: Anemia is documented in the Neurology Progress Notes on 05/27 & 05/28 without further specificity or cause. History/Risk Factors per the 05/26 Medical History: DM II with CKD, CHF, JOSE, CAD with stent, GERD, COPD, TIA, Tremors, possible Seizure disorder, Former Smoker. Clinical indicators: Presented to the ED on 05/26 with SOB, Upper Respiratory Infection. ED Clinical Impression: DAILY, COPD, CHF, Hypoxia and Weakness. 05/26 LAB: Hgb 9.8, 9.5; 05/27: 9.2 Hct 30.5, 29.7; 05/27 27.1 Treatment 05/26: INH Ventolin, IV Toradol, IV fluid bolus 1,000 mls @ 999 mls/hr q1H, IV fluid rate 1,000 mls @ 130 mls/hr q7H, IV Decadron, INH Duoneb, IV Lasix 80 mg x1, INH Atrovent, po Eliquis, Aspirin & Feosol. Home meds: Feosol, INH Duoneb, Pepcid, Lipitor, Aspirin, Eliquis In order to capture the severity of condition, please clarify the type of anemia and etiology if known: [ ] Chronic blood loss anemia [ ] Iron deficiency anemia [ ] Drug induced anemia [ ] Anemia of chronic kidney disease [ ] Unable to determine [ ] Other, please specify (Last Form Revision: May 2019) Query response documented on query form: 05/30 Dr. Estephanie Peoples: Anemia, etiology is CKD. Iron deficiency. mka MTDD
--- NOTE | 2020-05-28 15:44 | PN ---
PROGRESS NOTE The patient is seen for followup for acute kidney injury. He was admitted to the hospital with mental status changes. Serum creatinine was 3.9 on admission. Baseline creatinine appears to be at 2.3 to 2.5 mg/dL. Patient has underlying CKD stage 4. He was on a large dose of Neurontin, which is currently on hold. Mentation seems to have improved somewhat. Patient has an indwelling Wood catheter; 24-hour urine output at 1.8 L. He was initially maintained on Lasix, which is currently on hold now. On examination today, blood pressure is 144/64, heart rate 58 per minute. He is afebrile. EXAMINATION OF THE HEART: S1 and S2. EXAMINATION OF LUNGS: Bilateral breath sounds are heard. ABDOMEN: Soft, non-tender. Examination of lower extremities shows no significant edema. REGIONAL MANAGER exam shows patient is moving all 4 extremities. Labs show sodium 131, potassium 5.7, chloride 99. CO2 is 21, BUN 81, serum creatinine 3.75 from 05/27/2020. Labs from today are not available yet. ASSESSMENT: 1. Acute kidney injury, mostly acute tubular necrosis, associated with some degree of hypoperfusion in the setting of use of angiotensin receptor blockers, good urine output. Currently with indwelling Wood catheter. Lasix was held yesterday. Labs are not available from today. They were just ordered and therefore they are pending. Cozaar is currently on hold. UA was ordered, but it has still not been sent. 2. Chronic kidney disease, stage 4, secondary to diabetic nephropathy. Serum creatinine 2.[address] back to 2019. 3. Mental status changes secondary to toxic/metabolic encephalopathy. Patient was on a large dose of gabapentin and he was also on Ultram, which is currently on hold. Keppra dose has been decreased as well by Neurology. 4. Myoclonic jerks secondary to Neurontin, currently on hold and improved. 5. Paroxysmal atrial fibrillation, maintained on Eliquis. 6. Hypertension. Blood pressure currently on the lower side. Continue to monitor. 7. Hyperkalemia associated with acute kidney injury. No urinary obstruction noted. Continue to hold off on the Cozaar. Labs are ordered for today. PLAN: Reorder UA. Check BMP today to follow up on the potassium and the serum creatinine and repeat labs again in a.m. Continue off of diuretics and angiotensin receptor blockers. Ultrasound of the kidneys done on 05/16/2020 was unremarkable. MMODL / IJN: [id number] /
[2020-05-28 17:06] LABS: Glucose,Whole Blood 121 mg/dL (75-99)
[2020-05-28 18:19] LABS: Albumin 3.7 g/dL (3.5-5.0); Calcium 8.1 mg/dL (8.4-10.2); Potassium 5.7 mmol/L (3.5-5.1); Total Bilirubin 0.4 mg/dL (0.2-1.3); Total Protein 5.8 g/dL (6.3-8.2)
[2020-05-28] MEDS: CYANOCOBALAMIN 1,000 MCG/ML 1 ML VIAL IM SCH (18:39)
[2020-05-28] MEDS: ACETAMINOPHEN TAB 325 MG TAB PO PRN (19:43)
[2020-05-28 20:28] LABS: Glucose,Whole Blood 209 mg/dL (75-99)
[2020-05-28] MEDS: MAG HYDROX/AL HYDROX/SIMETH 30 ML CUP PO PRN (22:16)
[2020-05-29] MEDS: HYDROcodone/APAP 5-325MG 1 EACH TAB PO PRN ×2 (01:23→08:53)
[2020-05-29 06:15] LABS: Glucose,Whole Blood 92 mg/dL (75-99)
[2020-05-29] MEDS: carvediloL 12.5 MG TAB PO SCH ×2 (06:25→16:34)
[2020-05-29 06:49] LABS: Calcium 8.1 mg/dL (8.4-10.2); Potassium 5.3 mmol/L (3.5-5.1)
[2020-05-29] MEDS: IPRATROPIUM-ALBUTEROL 3 ML NEB INHALATION SCH ×4 (08:01→19:22)
--- NOTE | 2020-05-29 08:34 | ECHOF ---
Referral Reason:Heart Failure MEASUREMENTS -------- HEIGHT: 175.3 cm WEIGHT: 123.4 kg BP: 113/54 AV maxP.69 mmHg AV meanP.95 mmHg FINDINGS -------- Sinus rhythm. This was a technically difficult study with suboptimal views. Limited Study Overall left ventricular systolic function is low-normal with, an EF between 50 - 55 %. The RV was not well visualized. The left atrium was not well visualized. The right atrium was not well visualized. 5.0mg of Lumason was utilized for enhancement of images The aortic valve was not well visualized. There is mild aortic stenosis present. Peak/mean gradie nt across the Aortic Valve is 36.69mmHg / 21.95mmHg. The mitral valve was not well visualized. The tricuspid valve was not well visualized. The pulmonic valve was not well visualized. There is no pericardial effusion. CONCLUSIONS -------- 1. This was a technically difficult study with suboptimal views. 2. Overall left ventricular systolic function is low-normal with, an EF between 50 - 55 %. 3. There is mild aortic stenosis present. 4. Peak/mean gradient across the Aortic Valve is 36.69mmHg / 21.95mmHg. DIRECTOR OF PRODUCT MARKETING: Vicenta Ventura RDCS
[2020-05-29] MEDS: TAMSULOSIN 0.4 MG CAP.ER.24H PO SCH (08:52)
[2020-05-29] MEDS: FERROUS SULFATE 325 MG TAB PO SCH (08:52)
[2020-05-29] MEDS: CITALOPRAM HYDROBROMIDE 20 MG TAB PO SCH (08:52)
[2020-05-29] MEDS: hydrALAZINE HCL 50 MG TAB PO SCH ×3 (08:52→20:04)
[2020-05-29] MEDS: ATORVASTATIN 40 MG TAB PO SCH (08:52)
[2020-05-29] MEDS: ASPIRIN 81 MG PO SCH (08:52)
[2020-05-29] MEDS: APIXABAN 2.5 MG TABLET PO SCH ×2 (08:52→20:04)
[2020-05-29] MEDS: GLIMEPIRIDE 1 MG TAB PO SCH (08:52)
[2020-05-29] MEDS: levETIRAcetam 500 MG TAB PO SCH ×2 (08:52→20:04)
[2020-05-29] MEDS: GABAPENTIN 100 MG CAP PO SCH ×2 (08:52→20:04)
[2020-05-29] MEDS: CYANOCOBALAMIN 1,000 MCG/ML 1 ML VIAL IM SCH (08:53)
[2020-05-29] MEDS ORDERED: PREGABALIN 75 MG CAP PO SCH (09:30)
--- NOTE | 2020-05-29 09:41 | P.PN ---
Subjective Progress Note Date: 05/29/20 Principal diagnosis: This is a 70-year-old male seen with acute kidney injury secondary to decreased intake from mental status changes, as well as with CK D, his baseline creatinine is 2.3 as of 11/11/2019, he does have proteinuria 2+ with the urine total protein of 822 mg dated 04/01/2019, likely diabetic nephropathy and nephrosclerosis. His workup has included negative ANCA, JACKIE urine immunofixation complement levels and double-stranded DNA He was admitted with mental status changes deemed to be from medications. Since discontinuation and adjustment of doses of these medications and he is much better. He was on gabapentin as well as or ULTRAM that probably was the cause of this This morning he is awake alert oriented. He is eating well. Complains of 2 loose stools this morning and 2 loose stools yesterday. But this is something he has had chronically he says. He is known with COPD, diabetes, hypertension, sleep apnea on BiPAP at home Objective - Vital Signs Vital signs: Vital Signs Temp 97.8 F 05/29/20 03:14 Pulse 53 L 05/29/20 03:14 Resp 17 05/29/20 03:14 BP 144/65 05/29/20 03:14 Pulse Ox 96 05/29/20 03:14 Intake & Output 05/28/20 05/29/20 05/29/20 18:59 06:59 18:59 Intake Total 380 236 Output Total 1650 Balance 380 -1650 236 Weight 125.5 kg 129.5 kg Intake: Oral 380 236 Output: Urine 1650 Uretheral (Wood) 500 Other: Voiding Method Indwelling Catheter Indwelling Catheter # Voids 0 # Bowel Movements 0 On examination is awake alert oriented. He is on nasal cannula oxygen HEENT exam no JVP neck is supple no facial asymmetry Lungs are significant for bilateral coarse crackles Good air entry bilaterally Heart sounds are unremarkable for any murmur rub gallop Abdomen soft nontender. neurologically awake alert oriented. No asterixis - Labs CBC & Chem 7: 05/27/20 07:19 05/29/20 05:53 Labs: Abnormal Lab Results - Last 24 Hours (Table) 05/28/20 05/28/20 05/28/20 Range/Units 11:50 17:05 17:28 Sodium 130 L (137-145) mmol/L Potassium 5.7 H (3.5-5.1) mmol/L Chloride 96 L (98-107) mmol/L BUN 85 H (9-20) mg/dL Creatinine 3.02 H (0.66-1.25) mg/dL Glucose 122 H (74-99) mg/dL POC Glucose (mg/dL) 217 H 121 H (75-99) mg/dL Calcium 8.1 L (8.4-10.2) mg/dL Total Protein 5.8 L (6.3-8.2) g/dL 05/28/20 05/29/20 Range/Units 20:27 05:53 Sodium 130 L (137-145) mmol/L Potassium 5.3 H (3.5-5.1) mmol/L Chloride 97 L (98-107) mmol/L BUN 82 H (9-20) mg/dL Creatinine 2.99 H (0.66-1.25) mg/dL Glucose (74-99) mg/dL POC Glucose (mg/dL) 209 H (75-99) mg/dL Calcium 8.1 L (8.4-10.2) mg/dL Total Protein (6.3-8.2) g/dL Microbiology - Last 24 Hours (Table) 05/26/20 05:15 Blood Culture - Preliminary Blood No Growth after 72 hours Assessment and Plan Assessment: Impression 1. Acute kidney injury secondary to low intake improved, associated additionally with medications including losartan. Creatinine was 3.95 on admission is currently 2.9. 2. Chronic kidney disease secondary to common is diabetic nephropathy and nephrosclerosis Baseline creatinine off 2.3 dated 11/11/2019 with 800 mg of pro teinuria. 3. Mild degree of hyponatremia from acute kidney injury and chronic kidney disease. Sodium is 1:30 stable 4. Mild degree of height her kalemia secondary to chronic kidney disease and ac [place] kidney injury improved from 5.7-5.3 5. Anemia hemoglobin is 9.2, etiology is CK D, rule out an deficiency Recommendation 1. Discontinue Wood catheter 2. Check iron and TIBC 3. Monitor labs, patient can be discharged from a nephrological perspective and followed up as an
--- NOTE | 2020-05-29 11:42 | P.PN ---
Subjective Progress Note Date: 05/29/20 This is a pleasant 70-year-old male past medical history significant for coronary artery disease status post PCI to the proximal mid and distal RCA in 2018, hypertension, dyslipidemia, paroxysmal atrial fibrillation on long-term anticoagulation, diabetes mellitus, TIA, chronic kidney disease, COPD, aortic stenosis and former nicotine dependence. He follows in the office with Dr. Eng. He is seen and examined sitting up in the chair in no acute distress. Overall his breathing is improving daily. Nephrology is managing his diuretics. Blood pressure 104/54 heart rate 58 afebrile maintaining oxygen saturation on room air. Currently maintained on Eliquis 2.5 mg twice a day, aspirin 81 mg daily, atorvastatin 40 mg daily, Coreg 25 mg daily and hydralazine 50 mg 3 times a day. 05/29: Patient is off diuretics and management per nephrology. Patient has denied any chest pain or shortness of breath. He is anticipating that he'll be going home today. He has been afebrile, heart rate 60, blood pressure 101/54 pulse ox 94% on 2 L. Repeat BUN 82 and creatinine 2.99 with potassium of 5.3. gambling monitor is a sinus rhythm. GENERAL: Well-appearing, well-nourished and in no acute distress. NECK: Supple without JVD or thyromegaly. LUNGS: Breath sounds clear to auscultation bilaterally. Respiration equal and unlabored. No wheezes, rales or rhonchi. Diminished bilaterally. HEART: Regular rate and rhythm with systolic ejection murmur at the base, no rubs or gallops. S1 and S2 heard. EXTREMITIES: Normal range of motion, trace bilateral lower extremity nonpitting edema. No clubbing or cyanosis. Peripheral pulses intact. ASSESSMENT Acute on chronic heart failure with preserved ejection fraction Aortic stenosis, mild Coronary artery disease s/p PCI Paroxysmal atrial fibrillation on long-term anticoagulation currently maintaining sinus mechanism Chronic kidney disease Peripheral vascular disease Hypertension Dyslipidemia COPD PLAN Continue current medical regimen. Diuretic therapy per nephrology. Nurse Practitioner note has been reviewed, I agree with a documented findings and plan of care. Patient was seen and examined. Objective - Vital Signs Vital signs: Vital Signs Temp 97.6 F 05/29/20 08:46 Pulse 60 05/29/20 08:46 Resp 16 05/29/20 08:46 BP 101/54 05/29/20 08:46 Pulse Ox 94 L 05/29/20 08:46 Intake & Output 05/28/20 05/29/20 05/29/20 18:59 06:59 18:59 Intake Total 380 246 Output Total 1650 Balance 380 -1650 246 Weight 125.5 kg 129.5 kg Intake: IV 10 Invasive Line 1 10 Oral 380 236 Output: Urine 1650 Uretheral (Wood) 500 Other: Voiding Method Indwelling Catheter Indwelling Catheter Indwelling Catheter # Voids 0 # Bowel Movements 0 - Labs CBC & Chem 7: 05/27/20 07:19 05/29/20 05:53 Labs: Abnormal Lab Results - Last 24 Hours (Table) 05/28/20 05/28/20 05/28/20 Range/Units 11:50 17:05 17:28 Sodium 130 L (137-145) mmol/L Potassium 5.7 H (3.5-5.1) mmol/L Chloride 96 L (98-107) mmol/L BUN 85 H (9-20) mg/dL Creatinine 3.02 H (0.66-1.25) mg/dL Glucose 122 H (74-99) mg/dL POC Glucose (mg/dL) 217 H 121 H (75-99) mg/dL Calcium 8.1 L (8.4-10.2) mg/dL Total Protein 5.8 L (6.3-8.2) g/dL 05/28/20 05/29/20 Range/Units 20:27 05:53 Sodium 130 L (137-145) mmol/L Potassium 5.3 H (3.5-5.1) mmol/L Chloride 97 L (98-107) mmol/L BUN 82 H (9-20) mg/dL Creatinine 2.99 H (0.66-1.25) mg/dL Glucose (74-99) mg/dL POC Glucose (mg/dL) 209 H (75-99) mg/dL Calcium 8.1 L (8.4-10.2) mg/dL Total Protein (6.3-8.2) g/dL Microbiology - Last 24 Hours (Table) 05/26/20 05:15 Blood Culture - Preliminary Blood No Growth after 72 hours
[2020-05-29 11:56] LABS: Glucose,Whole Blood 174 mg/dL (75-99)
[2020-05-29] MEDS: PREGABALIN 50 MG CAP PO SCH ×2 (12:01→22:08)
[2020-05-29] MEDS: HYDROcodone/APAP 7.5-325MG 1 EACH TAB PO PRN ×2 (12:01→18:35)
--- NOTE | 2020-05-29 13:12 | P.PN ---
Subjective 70-year-old male was admitted for generalized weakness and he discharged from the hospital after he was treated for healthcare associated pneumonia and chronic diastolic dysfunction. Patient is being treated for the same during this hospital physician patient is presently not on any antibiotics chest x-ray was consistent with interstitial prominence because of which patient is being treated with Lasix IV. Patient to creatinine continued to get worse serum sodium as well as a potassium continue to get worse potassium was elevated at 5.7 nephrology was subsequently consulted nephrology evaluated the patient. He. Patient clinically doesn't doesn't appear to be in CHF chest x-ray is not typical for CHF either because of which we're discontinuing the IV Lasix. Patient was tested for Covid 19 twice and was negative. Patient is also sever pamella encephalopathic which is toxic encephalopathy from medications. Because of the toxic encephalopathy patient also has myoclonic jerks. Patient creatinine is 3.3 and patient is also on 600 mg 3 times a day of Neurontin which is being discontinued now when his encephalopathy resolves it he can be started on a lower dose that is 100 mg by mouth because of his poor renal function patient is also on tramadol which is being discontinued. Patient apparently had seizures in the past because of which patient is on Keppra because of this reason he will not be a candidate for continuation of tramadol. Tramadol can also cause myoclonic jerks. Patient was completely confused a year in the day bit better. Patient also received Ativan which will be discontinued and will use Seroquel for agitation if needed at nighttime. Patient is more awake alert oriented 2-3 when I evaluated the patient and able to provide answers be less encephalopathic when I evaluated the patient. 05/28/2020 Patient the has significant clinical improvement today patient is alert oriented almost 3 today. Patient denied any fever chills. Patient creatinine did improve a bit. Patient is much less encephalopathic. But had an episode of confusion last night. 05/29/2020 Patient is sitting in the chair patient is alert oriented 3 when more alert compared to yesterday. Although patient is complaining of back pain which is chronic patient has chronic abdominal pain as well as neuropathic pain. will be given [place] unfortunately I cannot use tramadol or nonsteroidal anti- inflammatory medications. Patient will be started on a low-dose of Lyrica for neuropathic pain. Patient's creatinine improved to 2.99 today. Constitutional: Denied any fatigue denied any fever. Cardio vascular: denied any chest pain, palpitations Gastrointestinal denied any nausea vomiting Pulmonary: Denied any shortness of breath cough Neurologic denied any new focal deficits All inpatient medications were reviewed and appropriate changes in these medications as dictated in the interval history and assessment and plan. Objective - Vital Signs Vital signs: Vital Signs Temp 97.6 F 05/29/20 08:46 Pulse 60 05/29/20 08:46 Resp 16 05/29/20 08:46 BP 101/54 05/29/20 08:46 Pulse Ox 94 L 05/29/20 08:46 Intake & Output 05/28/20 05/29/20 05/29/20 18:59 06:59 18:59 Intake Total 380 246 Output Total 1650 200 Balance 380 -1650 46 Weight 125.5 kg 129.5 kg Intake: IV 10 Invasive Line 1 10 Oral 380 236 Output: Urine 1650 200 Uretheral (Wood) 500 200 Other: Voiding Method Indwelling Catheter Indwelling Catheter Indwelling Catheter # Voids 0 # Bowel Movements 0 - Exam PHYSICAL EXAMINATION: GENERAL: The patient is alert and oriented x3, not in any acute distress. Well developed, well nourished. Much more awake HEENT: Pupils are round and equally reacting to light. EOMI. No scleral icterus. No conjunctival pallor. Normocephalic, atraumatic. No pharyngeal erythema. No thyromegaly. CARDIOVASCULAR: S1 and S2 present. No murmurs, rubs, or gallops. PULMONARY: Chest is clear to auscultation, no wheezing or crackles. ABDOMEN: Soft, nontender, nondistended, normoactive bowel sounds. No palpable organomegaly. MUSCULOSKELETAL: No joint swelling or deformity. EXTREMITIES: No cyanosis, clubbing, or pedal edema. NEUROLOGICAL: No focal deficits alert oriented 3 SKIN: No rashes. - Labs CBC & Chem 7: 05/27/20 07:19 05/29/20 05:53 Labs: Abnormal Lab Results - Last 24 Hours (Table) 05/28/20 05/28/20 05/28/20 Range/Units 17:05 17:28 20:27 Sodium 130 L (137-145) mmol/L Potassium 5.7 H (3.5-5.1) mmol/L Chloride 96 L (98-107) mmol/L BUN 85 H (9-20) mg/dL Creatinine 3.02 H (0.66-1.25) mg/dL Glucose 122 H (74-99) mg/dL POC Glucose (mg/dL) 121 H 209 H (75-99) mg/dL Calcium 8.1 L (8.4-10.2) mg/dL Total Protein 5.8 L (6.3-8.2) g/dL 05/29/20 05/29/20 Range/Units 05:53 11:55 Sodium 130 L (137-145) mmol/L Potassium 5.3 H (3.5-5.1) mmol/L Chloride 97 L (98-107) mmol/L BUN 82 H (9-20) mg/dL Creatinine 2.99 H (0.66-1.25) mg/dL Glucose (74-99) mg/dL POC Glucose (mg/dL) 174 H (75-99) mg/dL Calcium 8.1 L (8.4-10.2) mg/dL Total Protein (6.3-8.2) g/dL Microbiology - Last 24 Hours (Table) 05/26/20 05:15 Blood Culture - Preliminary Blood No Growth after 72 hours Assessment and Plan Plan: -Toxic encephalopathy leading to myoclonic activity: Offending agents like, and all, gabapentin were discontinued Ativan will be discontinued on 05/28/2020 will use Seroquel on as-needed basis for agitation. Patient is a doing much better today. -Chronic low back pain management as mentioned in the interval history -Dysphagia with possibility of aspiration although aspiration was not evident on the chest x-ray. Patient underwent be therapy evaluation and barium swallow. Speech therapy is recommending thin liquid by straw, neck: Neck to liquid by cup pured food and regular solids. There is no evidence of aspiration on the barium swallow -Acute renal failure on chronic kidney disease stage IV acute renal failure secondary to excessive diuresis which is which was discontinued kidney function did improve a bit -Congestive heart failure possible chronic diastolic dysfunction exacerbation on admission presently hypovolemic holding off on diuretic therapy -Type 2 diabetes mellitus -Diabetic peripheral neuropathy: Patient will be started started on low-dose of Lyrica probably will switch citalopram to Cymbalta if that doesn't control the pain -Coronary artery disease -Hypertension -Hyperlipidemia -Hyperkalemia secondary to acute renal failure -COPD without any acute exacerbation -Recently treated pneumonia -Generalized weakness secondary to toxic encephalopathy in the recent hospitalization. Physical therapy and occupational evaluation -History of CVA patient had a carotid endarterectomy in the past -Obstructive sleep apnea -Paroxysmal A. fib atrial fibrillation for which patient is on anticoagulation with Eliquis.
[2020-05-29 16:25] LABS: Glucose,Whole Blood 107 mg/dL (75-99)
--- NOTE | 2020-05-29 18:11 | XR ---
EXAMINATION TYPE: XR abdomen 1V DATE OF EXAM: 05/29/2020 COMPARISON: 10/25/2018 HISTORY: Abdominal pain TECHNIQUE: 4 views FINDINGS: There are some gas-filled loops of large and small bowel. There is some retained fecal mate rial in the right colon. There is no free air. Exam limited by patient's size. I do not see evidence for mechanical bowel obstruction. There is some blunting of the left costophrenic angle. IMPRESSION: There is evidence for some mild intestinal ileus. No free air. Pleural reaction and fluid at the left lung base. Abdomen overall not significantly different than old exam.
[2020-05-29 18:52] LABS: % Iron Saturation 15.71 (15.00-50.00)
[2020-05-29 20:27] LABS: Glucose,Whole Blood 213 mg/dL (75-99)
[2020-05-29] MEDS ORDERED: PREGABALIN 50 MG CAP PO SCH (21:00)
[2020-05-30] MEDS: HYDROcodone/APAP 7.5-325MG 1 EACH TAB PO PRN ×3 (00:35→20:55)
[2020-05-30 06:08] LABS: Glucose,Whole Blood 118 mg/dL (75-99)
[2020-05-30] MEDS: carvediloL 12.5 MG TAB PO SCH ×2 (06:21→16:33)
[2020-05-30 06:24] LABS: Calcium 7.8 mg/dL (8.4-10.2); Potassium 5.4 mmol/L (3.5-5.1)
[2020-05-30] MEDS: IPRATROPIUM-ALBUTEROL 3 ML NEB INHALATION SCH ×4 (07:32→21:09)
[2020-05-30] MEDS: PREGABALIN 50 MG CAP PO SCH ×2 (08:15→20:56)
[2020-05-30] MEDS: ASPIRIN 81 MG PO SCH (08:15)
[2020-05-30] MEDS: hydrALAZINE HCL 50 MG TAB PO SCH ×3 (08:15→20:56)
[2020-05-30] MEDS: ATORVASTATIN 40 MG TAB PO SCH (08:15)
[2020-05-30] MEDS: levETIRAcetam 500 MG TAB PO SCH ×2 (08:16→20:56)
[2020-05-30] MEDS: TAMSULOSIN 0.4 MG CAP.ER.24H PO SCH (08:16)
[2020-05-30] MEDS: CITALOPRAM HYDROBROMIDE 20 MG TAB PO SCH (08:16)
[2020-05-30] MEDS: GLIMEPIRIDE 1 MG TAB PO SCH (08:16)
[2020-05-30] MEDS: APIXABAN 2.5 MG TABLET PO SCH ×2 (08:16→20:56)
[2020-05-30] MEDS: FERROUS SULFATE 325 MG TAB PO SCH (08:16)
[2020-05-30] MEDS: GABAPENTIN 100 MG CAP PO SCH ×2 (08:16→20:56)
[2020-05-30] MEDS: CYANOCOBALAMIN 1,000 MCG/ML 1 ML VIAL IM SCH (08:16)
--- NOTE | 2020-05-30 09:29 | P.PN ---
Subjective Progress Note Date: 05/30/20 Principal diagnosis: This is a 70-year-old male seen with acute kidney injury secondary to decreased intake from mental status changes, as well as with CK D, his baseline creatinine is 2.3 as of 11/11/2019, he does have proteinuria 2+ with the urine total protein of 822 mg dated 04/01/2019, likely diabetic nephropathy and nephrosclerosis. His workup has included negative ANCA, JACKIE urine immunofixation complement levels and double-stranded DNA He was admitted with mental status changes deemed to be from medications. Since discontinuation and adjustment of doses of these medications and he is much better. He was on gabapentin as well as or ULTRAM that probably was the cause of this This morning he is awake alert oriented. He is eating well. Complains of 1 loose stools this morning . But this is something he has had chronically he says. He is known with COPD, diabetes, hypertension, sleep apnea on BiPAP at home Objective - Vital Signs Vital signs: Vital Signs Temp 97.8 F 05/30/20 03:20 Pulse 59 L 05/30/20 03:20 Resp 14 05/30/20 03:20 BP 131/63 05/30/20 03:20 Pulse Ox 94 L 05/30/20 03:20 Intake & Output 05/29/20 05/30/20 05/30/20 17:59 06:59 18:59 Intake Total 236 Output Total Balance 236 Weight Intake: IV Invasive Line 1 Oral 236 Output: Urine Uretheral (Wood) Other: Voiding Method # Voids On examination is awake alert oriented comfortable. HEENT exam no JVP neck is supple no facial asymmetry Lungs clear to auscultation good air entry except for bilateral basal coarse crackles not clear but cough Heart sounds are remarkable for a grade 3 systolic ejection murmur with reduced carotid upstrokes suggestive of aortic stenosis Abdomen soft and 1 bees and protuberant nontender Extremity exam was trace edema Neurologically awake alert oriented but has generalized weakness - Labs CBC & Chem 7: 05/27/20 07:19 05/30/20 05:35 Labs: Abnormal Lab Results - Last 24 Hours (Table) 05/29/20 05/29/20 05/29/20 Range/Units 05:53 11:55 16:24 Sodium (137-145) mmol/L Potassium (3.5-5.1) mmol/L Chloride (98-107) mmol/L BUN (9-20) mg/dL Creatinine (0.66-1.25) mg/dL Glucose (74-99) mg/dL POC Glucose (mg/dL) 174 H 107 H (75-99) mg/dL Calcium (8.4-10.2) mg/dL Iron 44 L (65-175) ug/dL 05/29/20 05/30/20 05/30/20 Range/Units 20:26 05:35 06:06 Sodium 130 L (137-145) mmol/L Potassium 5.4 H (3.5-5.1) mmol/L Chloride 97 L (98-107) mmol/L BUN 81 H (9-20) mg/dL Creatinine 2.80 H (0.66-1.25) mg/dL Glucose 111 H (74-99) mg/dL POC Glucose (mg/dL) 213 H 118 H (75-99) mg/dL Calcium 7.8 L (8.4-10.2) mg/dL Iron (65-175) ug/dL Microbiology - Last 24 Hours (Table) 05/26/20 05:15 Blood Culture - Preliminary Blood No Growth after 96 hours Assessment and Plan Assessment: Impression 1. Acute kidney injury secondary to low intake improved, associated additionally with medications including losartan. Creatinine was 3.95 on admission is currently 2.9 > 2.8. 2. Chronic kidney disease secondary to common is diabetic nephropathy and nephrosclerosis Baseline creatinine off 2.3 dated 11/11/2019 with 800 mg of proteinuria. 3. Mild degree of hyponatremia from acute kidney injury and chronic kidney disease. Sodium is 130 stable 4. Mild degree of hyperkalemia secondary to chronic kidney disease, RTA 4 and acute kidney injury improved from 5.7-5.3 > 5.4 5. Anemia hemoglobin is 9.2, etiology is CK D, 6. Iron deficiency with 15% iron saturation 7. Blood pressure at target almost. 1:30 to 140 systolic Recommendation 1. We'll give him 1 dose of IV Ferrlecit 125 mg in 2. No changes in medications otherwise
--- NOTE | 2020-05-30 09:49 | P.PN ---
Subjective 70-year-old male was admitted for generalized weakness and he discharged from the hospital after he was treated for healthcare associated pneumonia and chronic diastolic dysfunction. Patient is being treated for the same during this hospital physician patient is presently not on any antibiotics chest x-ray was consistent with interstitial prominence because of which patient is being treated with Lasix IV. Patient to creatinine continued to get worse serum sodium as well as a potassium continue to get worse potassium was elevated at 5.7 nephrology was subsequently consulted nephrology evaluated the patient. He. Patient clinically doesn't doesn't appear to be in CHF chest x-ray is not typical for CHF either because of which we're discontinuing the IV Lasix. Patient was tested for Covid 19 twice and was negative. Patient is also sever pamella encephalopathic which is toxic encephalopathy from medications. Because of the toxic encephalopathy patient also has myoclonic jerks. Patient creatinine is 3.3 and patient is also on 600 mg 3 times a day of Neurontin which is being discontinued now when his encephalopathy resolves it he can be started on a lower dose that is 100 mg by mouth because of his poor renal function patient is also on tramadol which is being discontinued. Patient apparently had seizures in the past because of which patient is on Keppra because of this reason he will not be a candidate for continuation of tramadol. Tramadol can also cause myoclonic jerks. Patient was completely confused a year in the day bit better. Patient also received Ativan which will be discontinued and will use Seroquel for agitation if needed at nighttime. Patient is more awake alert oriented 2-3 when I evaluated the patient and able to provide answers be less encephalopathic when I evaluated the patient. 05/28/2020 Patient the has significant clinical improvement today patient is alert oriented almost 3 today. Patient denied any fever chills. Patient creatinine did improve a bit. Patient is much less encephalopathic. But had an episode of confusion last night. 05/29/2020 Patient is sitting in the chair patient is alert oriented 3 when more alert compared to yesterday. Although patient is complaining of back pain which is chronic patient has chronic abdominal pain as well as neuropathic pain. will be given [place] unfortunately I cannot use tramadol or nonsteroidal anti- inflammatory medications. Patient will be started on a low-dose of Lyrica for neuropathic pain. Patient's creatinine improved to 2.99 today. 05/30/2020 Patient circumflex creatinine continue to improve. Patient is getting IV iron. He is still having neuropathic pain. His pain although overall did improve. Patient had an abdominal x-ray showing ileus most probably gastroenteritis rather than ileus patient is having diarrhea general surgery will evaluate the patient. Constitutional: Denied any fatigue denied any fever. Cardio vascular: denied any chest pain, palpitations Gastrointestinal denied any nausea vomiting Pulmonary: Denied any shortness of breath cough Neurologic denied any new focal deficits All inpatient medications were reviewed and appropriate changes in these medications as dictated in the interval history and assessment and plan. Objective - Vital Signs Vital signs: Vital Signs Temp 97.4 F L 05/30/20 08:00 Pulse 56 L 05/30/20 08:00 Resp 20 05/30/20 08:00 BP 133/63 05/30/20 08:00 Pulse Ox 94 L 05/30/20 08:00 Intake & Output 05/29/20 05/30/20 05/30/20 17:59 06:59 18:59 Intake Total 236 Output Total Balance 236 Weight Intake: IV Invasive Line 1 Oral 236 Output: Urine Uretheral (Wood) Other: Voiding Method # Voids - Exam PHYSICAL EXAMINATION: GENERAL: The patient is alert and oriented x3, not in any acute distress. Well developed, well nourished. Much more awake HEENT: Pupils are round and equally reacting to light. EOMI. No scleral icterus. No conjunctival pallor. Normocephalic, atraumatic. No pharyngeal erythema. No thyromegaly. CARDIOVASCULAR: S1 and S2 present. No murmurs, rubs, or gallops. PULMONARY: Chest is clear to auscultation, no wheezing or crackles. ABDOMEN: Soft, nontender, nondistended, normoactive bowel sounds. No palpable organomegaly. MUSCULOSKELETAL: No joint swelling or deformity. EXTREMITIES: No cyanosis, clubbing, or pedal edema. NEUROLOGICAL: No focal deficits alert oriented 3 SKIN: No rashes. - Labs CBC & Chem 7: 05/27/20 07:19 05/30/20 05:35 Labs: Abnormal Lab Results - Last 24 Hours (Table) 05/29/20 05/29/20 05/29/20 Range/Units 05:53 11:55 16:24 Sodium (137-145) mmol/L Potassium (3.5-5.1) mmol/L Chloride (98-107) mmol/L BUN (9-20) mg/dL Creatinine (0.66-1.25) mg/dL Glucose (74-99) mg/dL POC Glucose (mg/dL) 174 H 107 H (75-99) mg/dL Calcium (8.4-10.2) mg/dL Iron 44 L (65-175) ug/dL 05/29/20 05/30/20 05/30/20 Range/Units 20:26 05:35 06:06 Sodium 130 L (137-145) mmol/L Potassium 5.4 H (3.5-5.1) mmol/L Chloride 97 L (98-107) mmol/L BUN 81 H (9-20) mg/dL Creatinine 2.80 H (0.66-1.25) mg/dL Glucose 111 H (74-99) mg/dL POC Glucose (mg/dL) 213 H 118 H (75-99) mg/dL Calcium 7.8 L (8.4-10.2) mg/dL Iron (65-175) ug/dL Microbiology - Last 24 Hours (Table) 05/26/20 05:15 Blood Culture - Preliminary Blood No Growth after 96 hours Assessment and Plan Plan: -Toxic encephalopathy leading to myoclonic activity: Offending agents like, and all, gabapentin were discontinued Ativan was discontinued on 05/28/2020 will use Seroquel on as-needed basis for agitation. Patient is a doing much better today. Possible gastroenteritis -Chronic low back pain -Dysphagia with possibility of aspiration although aspiration was not evident on the chest x-ray. Patient underwent be therapy evaluation and barium swallow. Speech therapy is recommending thin liquid by straw, neck: Neck to liquid by cup pured food and regular solids. There is no evidence of aspiration on the barium swallow -Acute renal failure on chronic kidney disease stage IV acute renal failure secondary to excessive diuresis which is which was discontinued kidney function did improve a bit -Congestive heart failure possible chronic diastolic dysfunction exacerbation on admission presently hypovolemic holding off on diuretic therapy -Type 2 diabetes mellitus -Diabetic peripheral neuropathy: Patient will be started started on low-dose of Lyrica probably will switch citalopram to Cymbalta if that doesn't control the pain -Coronary artery disease -Hypertension -Hyperlipidemia -Hyperkalemia secondary to acute renal failure -COPD without any acute exacerbation -Recently treated pneumonia -Generalized weakness secondary to toxic encephalopathy in the recent hospitalization. Physical therapy and occupational evaluation -History of CVA patient had a carotid endarterectomy in the past -Obstructive sleep apnea -Paroxysmal A. fib atrial fibrillation for which patient is on anticoagulation with Eliquis.
[2020-05-30] MEDS ORDERED: SODIUM FERRIC GLUCONAT-SUCROSE 125 MG in SODIUM CHLORIDE 0.9% 100 ML IVPB ONE (10:00)
[2020-05-30 11:52] LABS: Glucose,Whole Blood 201 mg/dL (75-99)
--- NOTE | 2020-05-30 14:15 | P.GSCN ---
History of Present Illness Consult date: 05/30/20 Reason for Consult: Ileus History of present illness: This is a 70-year-old male admitted to the hospital. Patient had some complaints of abdominal pain. His plain films are suggestive of ileus. The patient has passed a large amount of flatus and had a large bowel movement this morning. Past Medical History Past Medical History: COPD, CVA/TIA, Diabetes Mellitus, GERD/Reflux, Hypertension, Osteoarthritis (OA), Sleep Apnea/CPAP/BIPAP Additional Past Medical History / Comment(s): having "stomach pain for 4 months",has cpap, TIA years ago, on 05-23-19 episode of confusion,slurred speech,tremors, oxygen use History of Any Multi-Drug Resistant Organisms: None Reported Past Surgical History: Cholecystectomy, Heart Catheterization With Stent, Hernia Repair, Orthopedic Surgery Additional Past Surgical History / Comment(s): heart stents x 3,carpal tunnel, left carotid endarterectomy, RIGHT HIP with pin, rt shoulder, umbilical hernia, CTS shayna x2 Past Anesthesia/Blood Transfusion Reactions: No Reported Reaction Date of Last Stent Placement:: 12-10-17 Smoking Status: Former smoker - Past Family History Mother Family Medical History: Cancer Additional Family Medical History / Comment(s): Stomach cancer Father History Unknown: Yes Additional Family Medical History / Comment(s): ETOH abuse Medications and Allergies Home Medications Medication Instructions Recorded Confirmed Type amLODIPine BESYLATE [Amlodipine 10 mg PO DAILY 10/26/15 05/26/20 History Besylate] Gabapentin 600 mg PO BID 10/25/18 05/26/20 History Carvedilol [Coreg] 25 mg PO BID 01/26/20 05/26/20 History Ferrous Sulfate [Feosol] 325 mg PO DAILY 01/26/20 05/26/20 History Glimepiride [Amaryl] 1 mg PO DAILY 01/26/20 05/26/20 History Dicyclomine [Bentyl] 20 mg PO TID PRN #20 tablet 02/04/20 05/26/20 Rx Citalopram Hydrobromide [CeleXA] 40 mg PO DAILY 05/15/20 05/26/20 History levETIRAcetam [Keppra] 750 mg PO BID 05/15/20 05/26/20 History traMADol HCL 50 mg PO QID 05/15/20 05/26/20 History Apixaban [Eliquis] 2.5 mg PO BID #60 tablet 05/21/20 05/26/20 Rx Aspirin 81 mg PO DAILY chew 05/21/20 05/26/20 Rx Atorvastatin [Lipitor] 40 mg PO DAILY #30 tab 05/21/20 05/26/20 Rx Famotidine [Pepcid] 20 mg PO DAILY tab 05/21/20 05/26/20 Rx Furosemide [Lasix] 40 mg PO BID@0900,1600 #60 tab 05/21/20 05/26/20 Rx Tamsulosin [Flomax] 0.4 mg PO PC-BRKFST #30 cap.er.24h 05/21/20 05/26/20 Rx hydrALAZINE HCL [Apresoline] 50 mg PO TID #90 tab 05/21/20 05/26/20 Rx Ipratropium-Albuterol Nebulize 3 ml INHALATION RT-QID 05/26/20 05/26/20 History [Duoneb 0.5 mg-3 mg/3 ml Soln] Lactobacillus Acidophilus 1 tab PO BID 05/26/20 05/26/20 History [Acidophilus] Losartan [Cozaar] 25 mg PO DAILY 05/26/20 05/26/20 History Allergies Allergy/AdvReac Type Severity Reaction Status Date / Time neomycin Allergy Itching Verified 05/26/20 06:58 Surgical - Exam Vital Signs Temp Pulse Resp BP Pulse Ox 97.8 F 60 18 113/54 90 L 05/26/20 04:53 05/26/20 04:53 05/26/20 04:53 05/26/20 04:53 05/26/20 04:53 - General well developed, well nourished, no distress - Eyes PERRL - ENT normal pinna - Neck no masses - Respiratory normal expansion - Cardiovascular Rhythm: regular - Abdomen Abdomen: soft, non tender Results - Labs 05/27/20 07:19 05/30/20 05:35 Abnormal Lab Results - Last 24 Hours (Table) 05/29/20 05/29/20 05/29/20 Range/Units 05:53 16:24 20:26 Sodium (137-145) mmol/L Potassium (3.5-5.1) mmol/L Chloride (98-107) mmol/L BUN (9-20) mg/dL Creatinine (0.66-1.25) mg/dL Glucose (74-99) mg/dL POC Glucose (mg/dL) 107 H 213 H (75-99) mg/dL Calcium (8.4-10.2) mg/dL Iron 44 L (65-175) ug/dL 05/30/20 05/30/20 05/30/20 Range/Units 05:35 06:06 11:51 Sodium 130 L (137-145) mmol/L Potassium 5.4 H (3.5-5.1) mmol/L Chloride 97 L (98-107) mmol/L BUN 81 H (9-20) mg/dL Creatinine 2.80 H (0.66-1.25) mg/dL Glucose 111 H (74-99) mg/dL POC Glucose (mg/dL) 118 H 201 H (75-99) mg/dL Calcium 7.8 L (8.4-10.2) mg/dL Iron (65-175) ug/dL Microbiology - Last 24 Hours (Table) 05/26/20 05:15 Blood Culture - Preliminary Blood No Growth after 96 hours Diabetes panel 05/30/20 Range/Units 05:35 Sodium 130 L (137-145) mmol/L Potassium 5.4 H (3.5-5.1) mmol/L Chloride 97 L (98-107) mmol/L Carbon Dioxide 23 (22-30) mmol/L BUN 81 H (9-20) mg/dL Creatinine 2.80 H (0.66-1.25) mg/dL Glucose 111 H (74-99) mg/dL Calcium 7.8 L (8.4-10.2) mg/dL Calcium panel 05/30/20 Range/Units 05:35 Calcium 7.8 L (8.4-10.2) mg/dL Pituitary panel 05/30/20 Range/Units 05:35 Sodium 130 L (137-145) mmol/L Potassium 5.4 H (3.5-5.1) mmol/L Chloride 97 L (98-107) mmol/L Carbon Dioxide 23 (22-30) mmol/L BUN 81 H (9-20) mg/dL Creatinine 2.80 H (0.66-1.25) mg/dL Glucose 111 H (74-99) mg/dL Calcium 7.8 L (8.4-10.2) mg/dL Adrenal panel 05/30/20 Range/Units 05:35 Sodium 130 L (137-145) mmol/L Potassium 5.4 H (3.5-5.1) mmol/L Chloride 97 L (98-107) mmol/L Carbon Dioxide 23 (22-30) mmol/L BUN 81 H (9-20) mg/dL Creatinine 2.80 H (0.66-1.25) mg/dL Glucose 111 H (74-99) mg/dL Calcium 7.8 L (8.4-10.2) mg/dL Assessment and Plan Assessment: Resolving ileus. Patient has had a large bowel movement. He can start diet.
[2020-05-30 16:37] LABS: Glucose,Whole Blood 79 mg/dL (75-99)
[2020-05-30 20:30] LABS: Glucose,Whole Blood 170 mg/dL (75-99)
[2020-05-30] MEDS ORDERED: FUROSEMIDE 10 MG/ML 4 ML VIAL IV STA (21:09)
[2020-05-31] MEDS: MAG HYDROX/AL HYDROX/SIMETH 30 ML CUP PO PRN ×2 (03:08→21:22)
[2020-05-31] MEDS: HYDROcodone/APAP 7.5-325MG 1 EACH TAB PO PRN (03:14)
[2020-05-31] MEDS: carvediloL 12.5 MG TAB PO SCH ×3 (06:20→16:59)
[2020-05-31 06:23] LABS: Glucose,Whole Blood 85 mg/dL (75-99)
[2020-05-31 07:04] LABS: Calcium 7.9 mg/dL (8.4-10.2); Potassium 5.7 mmol/L (3.5-5.1)
[2020-05-31] MEDS: IPRATROPIUM-ALBUTEROL 3 ML NEB INHALATION SCH ×4 (07:37→19:24)
[2020-05-31] MEDS ORDERED: QUEtiapine 25 MG TAB PO PRN (09:17)
[2020-05-31] MEDS ORDERED: HALOPERIDOL LACTATE 5 MG/ML 1 ML VIAL IVP ONE (09:39)
[2020-05-31] MEDS ORDERED: FUROSEMIDE 10 MG/ML 2 ML VIAL IV STA (11:46)
--- NOTE | 2020-05-31 11:48 | P.PN ---
Subjective Patient is seen in follow-up for acute kidney injury on chronic kidney disease. Renal function is stable. Patient was more confused last night and received Haldol this morning. Currently on BiPAP. He has been voiding. Does not have a Wood catheter. Vital signs are stable. General: The patient appeared well nourished and normally developed. HEENT: Currently on BiPAP. LUNGS: Breath sounds decreased. HEART: Rate and Rhythm are regular. ABDOMEN: Soft, obese. EXTREMITITES: Trace edema. Objective - Vital Signs Vital signs: Vital Signs Temp 98.6 F 05/31/20 03:15 Pulse 66 05/31/20 07:51 Resp 20 05/31/20 08:00 BP 106/73 05/31/20 08:00 Pulse Ox 84 L 05/31/20 08:00 Intake & Output 05/30/20 05/31/20 05/31/20 18:59 06:59 18:59 Intake Total 808 Output Total 250 Balance 808 -250 Weight 130 kg Intake: Intake, IV Titration 100 Amount Sodium Ferric Gluconat- 100 Sucrose 125 mg In Sodium Chloride 0.9% 100 ml @ 100 mls/hr IVPB ONCE ONE Rx#:[id number] Oral 708 Output: Urine 250 Other: Voiding Method Urinal # Voids 1 - Labs CBC & Chem 7: 05/27/20 07:19 05/31/20 06:02 Labs: Abnormal Lab Results - Last 24 Hours (Table) 05/30/20 05/30/20 05/31/20 Range/Units 11:51 20:29 06:02 Sodium 128 L (137-145) mmol/L Potassium 5.7 H (3.5-5.1) mmol/L Chloride 96 L (98-107) mmol/L BUN 81 H (9-20) mg/dL Creatinine 2.75 H (0.66-1.25) mg/dL POC Glucose (mg/dL) 201 H 170 H (75-99) mg/dL Calcium 7.9 L (8.4-10.2) mg/dL Microbiology - Last 24 Hours (Table) 05/26/20 05:15 Blood Culture - Preliminary Blood No Growth after 120 hours Assessment and Plan Plan: Assessment: 1. Acute kidney injury mostly prerenal from poor intake, losartan and diuresis. Renal function improved. Creatinine 2.75 today. 2. 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 Serologies negative in the past. 3. Hyperkalemia secondary to acute kidney injury, losartan RTA type IV. 4. Hyponatremia secondary to chronic kidney disease. Slightly hypervolemic. Recent TSH normal. 5. Acute on chronic diastolic CHF. Plan: 1200 mL fluid restriction. Encourage oral intake. Lasix 20 mg IV once today. Check bladder scan to rule out urinary retention. Hold hydralazine for systolic blood pressure less than 125. Check a.m. cortisol level. Check serum and urine osmolality and urine sodium level. Check chest x-ray. Repeat potassium level this evening.
[2020-05-31 11:52] LABS: Glucose,Whole Blood 88 mg/dL (75-99)
--- NOTE | 2020-05-31 12:45 | P.PN ---
Subjective Progress Note Date: 05/31/20 HISTORY OF PRESENT ILLNESS: 05/26/2020 This is a 70-year-old male with a past medical history significant for coronary artery disease with PCI to proximal mid and distal RCA in 2018, hypertension, hyperlipidemia, paroxysmal atrial fibrillation, diabetes mellitus, TIA, chronic kidney disease, COPD, aortic stenosis, and former nicotine dependence. Patient follows in the office with Dr. Eng. We have been asked to see the patient in consultation for CHF. Patient examined at the bedside in the emergency room. Patient is alert and oriented 3 when asked, however he appears somewhat confused and is unable to give a thorough history of why he came to the emergency room. There is no family present at the time of examination. He continues to repeat that he had a tooth pulled yesterday. He denies chest pain or pressure. He reports mild shortness of breath. Denies dizziness or lightheadedness. EKG reveals sinus bradycardia with no signs of acute ischemia Chest xray moderate vascular congestion. Small bilateral pleural effusions. Severe cardiomegaly Laboratory data: WBC 9.1. Hemoglobin 9.5. Platelet count 119. D-dimer 0.65. Sodium 132. Potassium 5.6. BUN 68. Creatinine 3.94. Troponin negative 2. BNP 6960. Current home cardiac medications include hydralazine 50 g 3 times a day, amlodipine 10 mg daily, losartan 25 mg daily, Lasix 40 mg twice a day, Coreg 25 mg twice a day, Lipitor 40 mg daily, aspirin 81 mg daily, and Eliquis 2.5 mg twice a day Most recent echocardiogram obtained in April 2020 reveals ejection fraction 55-60%, mild aortic stenosis, mild mitral regurgitation, mild tricuspid regurgitation Cardiac catheterization history: November [address] Eng with successful stenting of distal RCA, mid RCA, and proximal RCA 05/31/2020 Patient examined this morning at the bedside. Patient is confused. He is wearing a BiPAP however he does not want to keep it on and continues to pull it off this morning. Oxygen saturations greater than 90% when patient is wearing BiPAP. Creatinine 2.75, down from 2.80. Fluid balance over the last 24 hours is +550 mL. Nephrology is following. PHYSICAL EXAM: VITAL SIGNS: Reviewed. GENERAL: Well-developed in no acute distress. HEENT: Head is normocephalic. Pupils are equal, round. Sclerae anicteric. Mucous membranes of the mouth are moist. Neck supple. No JVD or thyromegaly LUNGS: Respirations even and unlabored. Lungs diminished. HEART: Regular rate and rhythm. S1 and S2 heard. Systolic murmur noted. ABDOMEN: Soft. Nondistended. Nontender. EXTREMITIES: Normal range of motion. No clubbing or cyanosis. Peripheral pulses intact. Trace bilateral lower extremity edema NEUROLOGIC: Awake and alert. Oriented x 3. ASSESSMENT: Acute exacerbation of chronic diastolic heart failure, EF 55-60% Small bilateral pleural effusions, per x-ray on admission Coronary artery disease with previous PCI to the RCA x 3, 2018 Mild aortic stenosis Paroxysmal atrial fibrillation, on anticoagulation with Eliquis Acute on chronic kidney disease Peripheral vascular disease with previous left carotid endarterectomy Hypertension Hyperlipidemia COPD PLAN: Continue current cardiac medications Continue Eliquis for anticoagulation Continue telemetry monitoring Nephrology following. Continue Lasix per nephrology. Patient scheduled to r eceive 20 mg IV 1 dose today. Obtain chest x-ray Daily weights Accurate I&O's Monitor kidney function Further recommendations pending patient course Nurse practitioner note has been reviewed by physician. Signing provider agrees with the documented findings, assessment, and plan of care. Objective - Vital Signs Vital signs: Vital Signs Temp 98.6 F 05/31/20 03:15 Pulse 60 05/31/20 11:48 Resp 20 05/31/20 08:00 BP 106/73 05/31/20 08:00 Pulse Ox 84 L 05/31/20 08:00 Intake & Output 05/30/20 05/31/20 05/31/20 18:59 06:59 18:59 Intake Total 808 Output Total 250 Balance 808 -250 Weight 130 kg Intake: Intake, IV Titration 100 Amount Sodium Ferric Gluconat- 100 Sucrose 125 mg In Sodium Chloride 0.9% 100 ml @ 100 mls/hr IVPB ONCE ONE Rx#:[id number] Oral 708 Output: Urine 250 Other: Voiding Method Urinal # Voids 1 - Labs CBC & Chem 7: 05/27/20 07:19 05/31/20 06:02 Labs: Abnormal Lab Results - Last 24 Hours (Table) 05/30/20 05/31/20 Range/Units 20:29 06:02 Sodium 128 L (137-145) mmol/L Potassium 5.7 H (3.5-5.1) mmol/L Chloride 96 L (98-107) mmol/L BUN 81 H (9-20) mg/dL Creatinine 2.75 H (0.66-1.25) mg/dL POC Glucose (mg/dL) 170 H (75-99) mg/dL Calcium 7.9 L (8.4-10.2) mg/dL Microbiology - Last 24 Hours (Table) 05/26/20 05:15 Blood Culture - Preliminary Blood No Growth after 120 hours
--- NOTE | 2020-05-31 12:50 | P.PN ---
Subjective Progress Note Date: 05/31/20 CHIEF COMPLAINT: Abdominal pain HISTORY OF PRESENT ILLNESS: Surgical service is following in regards to p atient's ileus. Per nursing staff patient did have a bowel movement and he has been passing gas. Apparently patient had some agitation was given Haldol and is currently sleeping. He does have BiPAP on. Afebrile sodium 128 potassium 5.7 creatinine 2.75. Patient did get a dose of IV Lasix per nephrology. PHYSICAL EXAM: VITAL SIGNS: Reviewed. GENERAL: Well-developed in no acute distress. HEENT: No sclera icterus. Extraocular movements grossly intact. Moist buccal mucosa. Head is atraumatic, normocephalic. ABDOMEN: Soft. Obese. Nondistended. Nontender. NEUROLOGIC: Alert and oriented. Cranial nerves II through XII grossly intact. ASSESSMENT: 1. Ileus resolving PLAN: -Continue supportive care -No surgical intervention planned Physician Dairy Technician note has been reviewed by physician. Signing provider agrees with the documented findings, assessment, and plan of care. Objective - Vital Signs Vital signs: Vital Signs Temp 98.6 F 05/31/20 03:15 Pulse 60 05/31/20 11:48 Resp 20 05/31/20 08:00 BP 106/73 05/31/20 08:00 Pulse Ox 84 L 05/31/20 08:00 Intake & Output 05/30/20 05/31/20 05/31/20 18:59 06:59 18:59 Intake Total 808 Output Total 250 Balance 808 -250 Weight 130 kg Intake: Intake, IV Titration 100 Amount Sodium Ferric Gluconat- 100 Sucrose 125 mg In Sodium Chloride 0.9% 100 ml @ 100 mls/hr IVPB ONCE ONE Rx#:[id number] Oral 708 Output: Urine 250 Other: Voiding Method Urinal # Voids 1 - Labs CBC & Chem 7: 05/27/20 07:19 05/31/20 06:02 Labs: Abnormal Lab Results - Last 24 Hours (Table) 05/30/20 05/31/20 Range/Units 20:29 06:02 Sodium 128 L (137-145) mmol/L Potassium 5.7 H (3.5-5.1) mmol/L Chloride 96 L (98-107) mmol/L BUN 81 H (9-20) mg/dL Creatinine 2.75 H (0.66-1.25) mg/dL POC Glucose (mg/dL) 170 H (75-99) mg/dL Calcium 7.9 L (8.4-10.2) mg/dL Microbiology - Last 24 Hours (Table) 05/26/20 05:15 Blood Culture - Preliminary Blood No Growth after 120 hours
[2020-05-31 14:52] VITALS: BMI 40.5
--- NOTE | 2020-05-31 16:06 | XR ---
EXAMINATION TYPE: XR chest 1V portable DATE OF EXAM: 05/31/2020 CLINICAL HISTORY: Difficulty breathing progress study. TECHNIQUE: Single AP portable semiupright view of the chest is obtained. COMPARISON: Chest x-ray from [address] chest 2 weeks earlier. FINDINGS: There is persistent cardiomegaly with elevated left hemidiaphragm and bibasilar opacities redemonstrated. Upper lungs remain clear without pneumothorax. Degenerative change bilateral glenohum eral joints redemonstrated IMPRESSION: Improved left midlung linear atelectasis. Background cardiomegaly and elevated left hemid iaphragm with bibasilar opacities favoring atelectasis and/or scarring redemonstrated.
[2020-05-31] MEDS: CYANOCOBALAMIN 1,000 MCG/ML 1 ML VIAL IM SCH (16:13)
[2020-05-31] MEDS: CITALOPRAM HYDROBROMIDE 20 MG TAB PO SCH (16:59)
[2020-05-31] MEDS: GLIMEPIRIDE 1 MG TAB PO SCH (16:59)
[2020-05-31] MEDS: GABAPENTIN 100 MG CAP PO SCH ×2 (16:59→21:22)
[2020-05-31] MEDS: ASPIRIN 81 MG PO SCH (16:59)
[2020-05-31] MEDS: levETIRAcetam 500 MG TAB PO SCH ×2 (16:59→21:22)
[2020-05-31] MEDS: ATORVASTATIN 40 MG TAB PO SCH (17:00)
[2020-05-31] MEDS: ACETAMINOPHEN TAB 325 MG TAB PO PRN (17:00)
[2020-05-31] MEDS: TAMSULOSIN 0.4 MG CAP.ER.24H PO SCH (17:00)
[2020-05-31] MEDS: APIXABAN 2.5 MG TABLET PO SCH ×2 (17:00→21:22)
[2020-05-31] MEDS: hydrALAZINE HCL 50 MG TAB PO SCH ×3 (17:00→21:23)
[2020-05-31] MEDS: FERROUS SULFATE 325 MG TAB PO SCH (17:01)
[2020-05-31] MEDS: PREGABALIN 50 MG CAP PO SCH ×2 (17:01→21:22)
[2020-05-31 17:08] LABS: Glucose,Whole Blood 80 mg/dL (75-99)
[2020-05-31 20:45] LABS: Glucose,Whole Blood 139 mg/dL (75-99)
--- NOTE | 2020-05-31 23:04 | P.PN ---
Subjective Progress Note Date: 05/31/20 70-year-old male was admitted for generalized weakness and he discharged from the hospital after he was treated for healthcare associated pneumonia and chronic diastolic dysfunction. Patient is being treated for the same during this hospital physician patient is presently not on any antibiotics chest x-ray was consistent with interstitial prominence because of which patient is being treated with Lasix IV. Patient to creatinine continued to get worse serum sodium as well as a potassium continue to get worse potassium was elevated at 5.7 nephrology was subsequently consulted nephrology evaluated the patient. He. Patient clinically doesn't doesn't appear to be in CHF chest x-ray is not typical for CHF either because of which we're discontinuing the IV Lasix. Patient was tested for Covid 19 twice and was negative. 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 Because of the toxic encephalopathy patient also has myoclonic jerks. Patient creatinine is 3.3 and patient is also on 600 mg 3 times a day of Neurontin which is being discontinued now when his encephalopathy resolves it he can be started on a lower dose that is 100 mg by mouth because of his poor renal function patient is also on tramadol which is being discontinued. Patient apparently had seizures in the past because of which patient is on Keppra because of this reason he will not be a candidate for continuation of tramadol. Tramadol can also cause myoclonic jerks. Patient was completely confused a year in the day bit better. Patient also received Ativan which will be discontinued and will use Seroquel for agitation if needed at nighttime. Patient is more awake alert oriented 2-3 when I evaluated the patient and able to provide answers be less encephalopathic when I evaluated the patient. 05/28/2020 Patient the has significant clinical improvement today patient is alert oriented almost 3 today. Patient denied any fever chills. Patient creatinine did improve a bit. Patient is much less encephalopathic. But had an episode of confusion last night. 05/29/2020 Patient is sitting in the chair patient is alert oriented 3 when more alert compared to yesterday. Although patient is complaining of back pain which is chronic patient has chronic abdominal pain as well as neuropathic pain. will be given [place] unfortunately I cannot use tramadol or nonsteroidal anti- inflammatory medications. Patient will be started on a low-dose of Lyrica for neuropathic pain. Patient's creatinine improved to 2.99 today. 05/30/2020 Patient circumflex creatinine continue to improve. Patient is getting IV iron. He is still having neuropathic pain. His pain although overall did improve. Patient had an abdominal x-ray showing ileus most probably gastroenteritis rather than ileus patient is having diarrhea general surgery will evaluate the patient. 05/31/20 He is confused and lethargic this morning, pulling on his O2 line and hypoxic. His renal function is returning to baseline. Pt is passing gas and has had a BM. Objective - Vital Signs Vital signs: Vital Signs Temp 98.4 F 05/31/20 20:00 Pulse 61 05/31/20 20:00 Resp 19 05/31/20 20:00 BP 158/67 05/31/20 20:00 Pulse Ox 93 L 05/31/20 20:00 Intake & Output 05/31/20 05/31/20 06/01/20 06:59 18:59 06:59 Intake Total 240 Output Total 250 Balance -250 240 Weight 130 kg 124.5 kg Intake: Oral 240 Output: Urine 250 Other: Voiding Method Urinal Indwelling Catheter # Voids 1 - Exam General: lethargic, weak, obese. Vitals reviewed Lungs: normal respiratory effort, no wheezes or rales CV: Regular rate and rhythm, no murmur. Peripheral pulses 2+ Abdomen: soft, distended, mild R sided tenderness Neuro: confused, weak Skin: warm and dry. - Labs CBC & Chem 7: 05/27/20 07:19 05/31/20 17:18 Labs: Abnormal Lab Results - Last 24 Hours (Table) 05/31/20 05/31/20 05/31/20 Range/Units 06:02 17:18 20:43 Sodium 128 L (137-145) mmol/L Potassium 5.7 H 5.6 H (3.5-5.1) mmol/L Chloride 96 L (98-107) mmol/L BUN 81 H (9-20) mg/dL Creatinine 2.75 H (0.66-1.25) mg/dL POC Glucose (mg/dL) 139 H (75-99) mg/dL Calcium 7.9 L (8.4-10.2) mg/dL Microbiology - Last 24 Hours (Table) 05/26/20 05:15 Blood Culture - Preliminary Blood No Growth after 120 hours Assessment and Plan (1) Acute renal failure Current Visit: Yes Status: Acute Code(s): N17.9 - ACUTE KIDNEY FAILURE, UNSPECIFIED SNOMED Code(s): 28518967 (2) CHF (congestive heart failure) Current Visit: Yes Status: Acute Code(s): I50.9 - HEART FAILURE, UNSPECIFIED SNOMED Code(s): 76287263 (3) COPD (chronic obstructive pulmonary disease) Current Visit: Yes Status: Acute Code(s): J44.9 - CHRONIC OBSTRUCTIVE PULMONARY DISEASE, UNSPECIFIED SNOMED Code(s): 50740210 (4) Tetrahydrocannabinol (THC) use disorder, mild, abuse Current Visit: No Status: Acute Code(s): F12.10 - CANNABIS ABUSE, UNCOMPLICATED SNOMED Code(s): 68344726 Plan: Continue with current management, lasanay per Nephrology, IV iron. IV haldol today for his confusion and pt to use BIPAP. Pulmonology and Cardiology following
[2020-06-01] MEDS: ACETAMINOPHEN TAB 325 MG TAB PO PRN ×3 (01:12→13:13)
[2020-06-01] MEDS ORDERED: HALOPERIDOL LACTATE 5 MG/ML 1 ML VIAL IVP STA (05:03)
[2020-06-01 06:06] LABS: Glucose,Whole Blood 79 mg/dL (75-99)
[2020-06-01] MEDS: carvediloL 12.5 MG TAB PO SCH ×2 (06:52→17:19)
[2020-06-01] MEDS: IPRATROPIUM-ALBUTEROL 3 ML NEB INHALATION SCH ×4 (07:35→19:49)
[2020-06-01 09:17] LABS: Basophils % (A) 0 %; Eosinophils # (A) 0.1 k/uL (0-0.7); Eosinophils % (A) 1 %; HCT 27.3 % (39.0-53.0); HGB 9.3 gm/dL (13.0-17.5); Lymphocytes # (A) 0.5 k/uL (1.0-4.8); Lymphocytes % (A) 6 %; MCH 29.9 pg (25.0-35.0); MCHC 34.2 g/dL (31.0-37.0); MCV 87.5 fL (80.0-100.0); Monocytes # (A) 0.5 k/uL (0-1.0); Monocytes % (A) 7 %; Neutrophils # (A) 6.4 k/uL (1.3-7.7); Neutrophils % (A) 85 %; Platelet Count 105 k/uL (150-450); RBC 3.12 m/uL (4.30-5.90); RDW 15.1 % (11.5-15.5); WBC 7.5 k/uL (3.8-10.6)
[2020-06-01 09:48] LABS: Albumin 3.8 g/dL (3.5-5.0); Calcium 8.2 mg/dL (8.4-10.2); Magnesium 2.3 mg/dL (1.6-2.3); Potassium 5.5 mmol/L (3.5-5.1); Total Bilirubin 0.5 mg/dL (0.2-1.3)
[2020-06-01] MEDS: CITALOPRAM HYDROBROMIDE 20 MG TAB PO SCH (09:50)
[2020-06-01] MEDS: PREGABALIN 50 MG CAP PO SCH ×2 (09:50→19:44)
[2020-06-01] MEDS: levETIRAcetam 500 MG TAB PO SCH (09:50)
[2020-06-01] MEDS: ATORVASTATIN 40 MG TAB PO SCH (09:51)
[2020-06-01] MEDS: hydrALAZINE HCL 50 MG TAB PO SCH ×3 (09:51→22:54)
[2020-06-01] MEDS: APIXABAN 2.5 MG TABLET PO SCH ×2 (09:51→19:44)
[2020-06-01] MEDS: CYANOCOBALAMIN 1,000 MCG/ML 1 ML VIAL IM SCH (09:51)
[2020-06-01] MEDS: ASPIRIN 81 MG PO SCH (09:51)
[2020-06-01] MEDS: GABAPENTIN 100 MG CAP PO SCH ×2 (09:51→19:44)
[2020-06-01] MEDS: TAMSULOSIN 0.4 MG CAP.ER.24H PO SCH (09:52)
[2020-06-01] MEDS: GLIMEPIRIDE 1 MG TAB PO SCH (09:52)
[2020-06-01] MEDS: MAG HYDROX/AL HYDROX/SIMETH 30 ML CUP PO PRN (09:52)
[2020-06-01] MEDS ORDERED: HALOPERIDOL LACTATE 5 MG/ML 1 ML VIAL IVP PRN (10:45)
[2020-06-01 11:34] LABS: Glucose,Whole Blood 191 mg/dL (75-99)
--- NOTE | 2020-06-01 11:52 | P.PN ---
Subjective Progress Note Date: 06/01/20 CHIEF COMPLAINT: Abdominal pain HISTORY OF PRESENT ILLNESS: Patient seen and examined with Dr. bhardwaj. Surgical service is following in regards to patient's ileus. Patient has been having bowel movements and passing gas. He is on regular diet. Afebrile. WBC 7.5 Hgb 9.3 Sodium 128 potassium 5.5. Patient followed by nephrology PHYSICAL EXAM: VITAL SIGNS: Reviewed. GENERAL: Well-developed in no acute distress. HEENT: No sclera icterus. Extraocular movements grossly intact. Moist buccal mucosa. Head is atraumatic, normocephalic. ABDOMEN: Soft. Obese. Nondistended. Nontender. NEUROLOGIC: Alert and oriented. Cranial nerves II through XII grossly intact. ASSESSMENT: 1. Ileus resolving PLAN: -Continue supportive care -No surgical intervention planned Physician Cutter Finisher note has been reviewed by physician. Signing provider agrees with the documented findings, assessment, and plan of care. Objective - Vital Signs Vital signs: Vital Signs Temp 97.8 F 06/01/20 08:00 Pulse 73 06/01/20 08:00 Resp 20 06/01/20 08:00 BP 160/72 06/01/20 08:00 Pulse Ox 92 L 06/01/20 08:00 Intake & Output 05/31/20 06/01/20 06/01/20 18:59 06:59 18:59 Intake Total 240 180 Output Total 475 800 Balance -235 -620 Weight 124.5 kg 122 kg Intake: Oral 240 180 Output: Urine 475 800 Other: Voiding Method Indwelling Catheter Indwelling Catheter # Bowel Movements 3 - Labs CBC & Chem 7: 06/01/20 08:21 06/01/20 08:21 Labs: Abnormal Lab Results - Last 24 Hours (Table) 05/31/20 05/31/20 06/01/20 Range/Units 17:18 20:43 08:21 RBC 3.12 L (4.30-5.90) m/uL Hgb 9.3 L (13.0-17.5) gm/dL Hct 27.3 L (39.0-53.0) % Plt Count 105 L (150-450) k/uL Lymphocytes # 0.5 L (1.0-4.8) k/uL Sodium (137-145) mmol/L Potassium 5.6 H (3.5-5.1) mmol/L Chloride (98-107) mmol/L BUN (9-20) mg/dL Creatinine (0.66-1.25) mg/dL Glucose (74-99) mg/dL POC Glucose (mg/dL) 139 H (75-99) mg/dL Calcium (8.4-10.2) mg/dL Total Protein (6.3-8.2) g/dL 06/01/20 06/01/20 Range/Units 08:21 11:33 RBC (4.30-5.90) m/uL Hgb (13.0-17.5) gm/dL Hct (39.0-53.0) % Plt Count (150-450) k/uL Lymphocytes # (1.0-4.8) k/uL Sodium 128 L (137-145) mmol/L Potassium 5.5 H (3.5-5.1) mmol/L Chloride 96 L (98-107) mmol/L BUN 79 H (9-20) mg/dL Creatinine 2.36 H (0.66-1.25) mg/dL Glucose 69 L (74-99) mg/dL POC Glucose (mg/dL) 191 H (75-99) mg/dL Calcium 8.2 L (8.4-10.2) mg/dL Total Protein 6.0 L (6.3-8.2) g/dL Microbiology - Last 24 Hours (Table) 05/26/20 05:15 Blood Culture - Final Blood No Growth after 144 hours
--- NOTE | 2020-06-01 12:15 | P.PN ---
Subjective Progress Note Date: 06/01/20 I'm seeing the patient for the first time, she was being evaluated by Dr. Santamaria and was last seen on 05/28/2020 for neurological management. Please refer to his note for further neurological details. Patient had myoclonic jerks and the per Dr. Santamaria and he felt was likely due to metabolic dysfunction. He started the patient on the Keppra as a prophylactic and he stated the patient doesn't have any history of seizures. Per the patient he stated that he is doing better better compared to what his initial presentation was. Per the patient says he has not had any further myoclonic jerks. Objective - Vital Signs Vital signs: Vital Signs Temp 97.8 F 06/01/20 08:00 Pulse 72 06/01/20 11:59 Resp 20 06/01/20 08:00 BP 160/72 06/01/20 08:00 Pulse Ox 92 L 06/01/20 08:00 Intake & Output 05/31/20 06/01/20 06/01/20 18:59 06:59 18:59 Intake Total 240 180 Output Total 475 800 Balance -235 -620 Weight 124.5 kg 122 kg Intake: Oral 240 180 Output: Urine 475 800 Other: Voiding Method Indwelling Catheter Indwelling Catheter # Bowel Movements 3 - Exam GENERAL: The patient is lying in bed and is not in acute distress. NEUROLOGICAL: Higher mental function: The patient is awake, alert, oriented to self, place and time. Patient is following commands. No aphasia and no neglect. Cranial nerves: The pupils are round, equal and reactive to light. Visual pride are full to confrontation throughout. Extraocular movement is intact no nystagmus is noted. Facial sensation is normal to touch throughout. The facial strength is normal throughout. Tongue is midline and moved [id number] without any difficulty. No dysarthria is noted. Motor: The strength is 5 over 5 throughout. Normal tone and bulk. Sensation: Sensation is normal to touch throughout. Plantars are downgoing bilaterally. - Labs CBC & Chem 7: 06/01/20 08:21 06/01/20 08:21 Labs: Abnormal Lab Results - Last 24 Hours (Table) 05/31/20 05/31/20 06/01/20 Range/Units 17:18 20:43 08:21 RBC 3.12 L (4.30-5.90) m/uL Hgb 9.3 L (13.0-17.5) gm/dL Hct 27.3 L (39.0-53.0) % Plt Count 105 L (150-450) k/uL Lymphocytes # 0.5 L (1.0-4.8) k/uL Sodium (137-145) mmol/L Potassium 5.6 H (3.5-5.1) mmol/L Chloride (98-107) mmol/L BUN (9-20) mg/dL Creatinine (0.66-1.25) mg/dL Glucose (74-99) mg/dL POC Glucose (mg/dL) 139 H (75-99) mg/dL Calcium (8.4-10.2) mg/dL Total Protein (6.3-8.2) g/dL 06/01/20 06/01/20 Range/Units 08:21 11:33 RBC (4.30-5.90) m/uL Hgb (13.0-17.5) gm/dL Hct (39.0-53.0) % Plt Count (150-450) k/uL Lymphocytes # (1.0-4.8) k/uL Sodium 128 L (137-145) mmol/L Potassium 5.5 H (3.5-5.1) mmol/L Chloride 96 L (98-107) mmol/L BUN 79 H (9-20) mg/dL Creatinine 2.36 H (0.66-1.25) mg/dL Glucose 69 L (74-99) mg/dL POC Glucose (mg/dL) 191 H (75-99) mg/dL Calcium 8.2 L (8.4-10.2) mg/dL Total Protein 6.0 L (6.3-8.2) g/dL Microbiology - Last 24 Hours (Table) 05/26/20 05:15 Blood Culture - Final Blood No Growth after 144 hours Assessment and Plan Assessment: * Myoclonic jerks, likely due to metabolic dysfunction. Patient's mentation at this time is clear, although sometimes he is slightly confused, suggestive of mild metabolic encephalopathy as well. Acute renal failure, anemia, acidosis, mild hypercapnia and electrolyte imbalance are the likely causes. * Acute exacerbation of diastolic CHF * Diabetes type 2 with mild diabetic peripheral neuropathy * Coronary artery disease * Hypertension * Acute on chronic renal failure * Osteoarthritis * Obstructive sleep apnea * No reported history of seizure disorder Plan: * Patient's myoclonic jerks are likely related to metabolic dysfunction. * Patient states that he never has any history of seizures. Keppra was given for myoclonic jerks. Therefore I stopped Keppra to 500 mg twice a day since his myoclonic jerks are due to metabolic dysfucntion and not seizure. * Continue Neurontin 200 mg twice a day. * B12 270, folate 17.1. Keppra level 35.6 (3-60). We will start B12 replacement. Recommend the patient to follow-up with a neurologist as an outpatient within 2- 3 weeks. There is no further neurological workup needed at this time. We'll sign off. Please reconsult if needed. The plan is discussed with the patient's nurse. Harsha Bills MD Neuro-Hospitalist Time with Patient: Less than 30
--- NOTE | 2020-06-01 13:00 | P.PN ---
Subjective Progress Note Date: 06/01/20 HISTORY OF PRESENT ILLNESS: 05/26/2020 This is a 70-year-old male with a past medical history significant for coronary artery disease with PCI to proximal mid and distal RCA in 2018, hypertension, hyperlipidemia, paroxysmal atrial fibrillation, diabetes mellitus, TIA, chronic kidney disease, COPD, aortic stenosis, and former nicotine dependence. Patient follows in the office with Dr. Eng. We have been asked to see the patient in consultation for CHF. Patient examined at the bedside in the emergency room. Patient is alert and oriented 3 when asked, however he appears somewhat confused and is unable to give a thorough history of why he came to the emergency room. There is no family present at the time of examination. He continues to repeat that he had a tooth pulled yesterday. He denies chest pain or pressure. He reports mild shortness of breath. Denies dizziness or lightheadedness. EKG reveals sinus bradycardia with no signs of acute ischemia Chest xray moderate vascular congestion. Small bilateral pleural effusions. Severe cardiomegaly Laboratory data: WBC 9.1. Hemoglobin 9.5. Platelet count 119. D-dimer 0.65. Sodium 132. Potassium 5.6. BUN 68. Creatinine 3.94. Troponin negative 2. BNP 6960. Current home cardiac medications include hydralazine 50 g 3 times a day, amlodipine 10 mg daily, losartan 25 mg daily, Lasix 40 mg twice a day, Coreg 25 mg twice a day, Lipitor 40 mg daily, aspirin 81 mg daily, and Eliquis 2.5 mg twice a day Most recent echocardiogram obtained in April 2020 reveals ejection fraction 55-60%, mild aortic stenosis, mild mitral regurgitation, mild tricuspid regurgitation Cardiac catheterization history: November [address] Eng with successful stenting of distal RCA, mid RCA, and proximal RCA 05/31/2020 Patient examined this morning at the bedside. Patient is confused. He is wearing a BiPAP however he does not want to keep it on and continues to pull it off this morning. Oxygen saturations greater than 90% when patient is wearing BiPAP. Creatinine 2.75, down from 2.80. Fluid balance over the last 24 hours is +550 mL. Nephrology is following. 06/01/2020 Patient examined this morning at the bedside. Patient is much more awake and cooperative today. He is on a nasal cannula with oxygen saturations greater than 92%. He denies chest pain or pressure. He reports mild shortness of breath. Sodium 128. Potassium 5.5. BUN 79. Creatinine 2.36. Chest x-ray from yesterday revealed improved left midlung linear atelectasis. Background cardiomegaly and elevated left hemidiaphragm with bibasilar opacities favoring atelectasis and/or scarring redemonstrated. PHYSICAL EXAM: VITAL SIGNS: Reviewed. GENERAL: Well-developed in no acute distress. HEENT: Head is normocephalic. Pupils are equal, round. Sclerae anicteric. Mucous membranes of the mouth are moist. Neck supple. No JVD or thyromegaly LUNGS: Respirations even and unlabored. Lungs diminished. HEART: Regular rate and rhythm. S1 and S2 heard. Systolic murmur noted. ABDOMEN: Soft. Nondistended. Nontender. EXTREMITIES: Normal range of motion. No clubbing or cyanosis. Peripheral pulses intact. Trace bilateral lower extremity edema NEUROLOGIC: Awake and alert. Oriented x 3. ASSESSMENT: Acute exacerbation of chronic diastolic heart failure, EF 55-60% Small bilateral pleural effusions, per x-ray on admission Coronary artery disease with previous PCI to the RCA x 3, 2018 Mild aortic stenosis Paroxysmal atrial fibrillation, on anticoagulation with Eliquis Acute on chronic kidney disease Peripheral vascular disease with previous left carotid endarterectomy Hypertension Hyperlipidemia COPD PLAN: Continue current cardiac medications Continue Eliquis for anticoagulation Continue telemetry monitoring Nephrology following. Continue Lasix per nephrology. Daily weights Accurate I&O's Monitor kidney function Further recommendations pending patient course Nurse practitioner note has been reviewed by physician. Signing provider agrees with the documented findings, assessment, and plan of care. Objective - Vital Signs Vital signs: Vital Signs Temp 97.8 F 06/01/20 08:00 Pulse 72 06/01/20 11:59 Resp 20 06/01/20 08:00 BP 160/72 06/01/20 08:00 Pulse Ox 92 L 06/01/20 08:00 Intake & Output 05/31/20 06/01/20 06/01/20 18:59 06:59 18:59 Intake Total 240 180 Output Total 475 800 Balance -235 -620 Weight 124.5 kg 122 kg Intake: Oral 240 180 Output: Urine 475 800 Other: Voiding Method Indwelling Catheter Indwelling Catheter # Bowel Movements 3 - Labs CBC & Chem 7: 06/01/20 08:21 06/01/20 08:21 Labs: Abnormal Lab Results - Last 24 Hours (Table) 05/31/20 05/31/20 06/01/20 Range/Units 17:18 20:43 08:21 RBC 3.12 L (4.30-5.90) m/uL Hgb 9.3 L (13.0-17.5) gm/dL Hct 27.3 L (39.0-53.0) % Plt Count 105 L (150-450) k/uL Lymphocytes # 0.5 L (1.0-4.8) k/uL Sodium (137-145) mmol/L Potassium 5.6 H (3.5-5.1) mmol/L Chloride (98-107) mmol/L BUN (9-20) mg/dL Creatinine (0.66-1.25) mg/dL Glucose (74-99) mg/dL POC Glucose (mg/dL) 139 H (75-99) mg/dL Calcium (8.4-10.2) mg/dL Total Protein (6.3-8.2) g/dL 06/01/20 06/01/20 Range/Units 08:21 11:33 RBC (4.30-5.90) m/uL Hgb (13.0-17.5) gm/dL Hct (39.0-53.0) % Plt Count (150-450) k/uL Lymphocytes # (1.0-4.8) k/uL Sodium 128 L (137-145) mmol/L Potassium 5.5 H (3.5-5.1) mmol/L Chloride 96 L (98-107) mmol/L BUN 79 H (9-20) mg/dL Creatinine 2.36 H (0.66-1.25) mg/dL Glucose 69 L (74-99) mg/dL POC Glucose (mg/dL) 191 H (75-99) mg/dL Calcium 8.2 L (8.4-10.2) mg/dL Total Protein 6.0 L (6.3-8.2) g/dL Microbiology - Last 24 Hours (Table) 05/26/20 05:15 Blood Culture - Final Blood No Growth after 144 hours
[2020-06-01] MEDS ORDERED: TOLVAPTAN 15 MG 1/2 TABLET PO ONE (13:18)
--- NOTE | 2020-06-01 13:18 | P.PN ---
Subjective Patient is seen in follow-up for acute kidney injury on chronic kidney disease. Renal function is improved. Patient remains confused. Has a Wood catheter for retention. Nonoliguric. Vital signs are stable. General: The patient appeared well nourished and normally developed. HEENT: Currently on nasal cannula. LUNGS: Breath sounds decreased. HEART: Rate and Rhythm are regular. ABDOMEN: Soft, obese. EXTREMITITES: Trace edema. Objective - Vital Signs Vital signs: Vital Signs Temp 97.8 F 06/01/20 08:00 Pulse 72 06/01/20 11:59 Resp 20 06/01/20 08:00 BP 160/72 06/01/20 08:00 Pulse Ox 92 L 06/01/20 08:00 Intake & Output 05/31/20 06/01/20 06/01/20 18:59 06:59 18:59 Intake Total 240 180 Output Total 475 800 Balance -235 -620 Weight 124.5 kg 122 kg Intake: Oral 240 180 Output: Urine 475 800 Other: Voiding Method Indwelling Catheter Indwelling Catheter # Bowel Movements 3 - Labs CBC & Chem 7: 06/01/20 08:21 06/01/20 08:21 Labs: Abnormal Lab Results - Last 24 Hours (Table) 05/31/20 05/31/20 06/01/20 Range/Units 17:18 20:43 08:21 RBC 3.12 L (4.30-5.90) m/uL Hgb 9.3 L (13.0-17.5) gm/dL Hct 27.3 L (39.0-53.0) % Plt Count 105 L (150-450) k/uL Lymphocytes # 0.5 L (1.0-4.8) k/uL Sodium (137-145) mmol/L Potassium 5.6 H (3.5-5.1) mmol/L Chloride (98-107) mmol/L BUN (9-20) mg/dL Creatinine (0.66-1.25) mg/dL Glucose (74-99) mg/dL POC Glucose (mg/dL) 139 H (75-99) mg/dL Calcium (8.4-10.2) mg/dL Total Protein (6.3-8.2) g/dL 06/01/20 06/01/20 Range/Units 08:21 11:33 RBC (4.30-5.90) m/uL Hgb (13.0-17.5) gm/dL Hct (39.0-53.0) % Plt Count (150-450) k/uL Lymphocytes # (1.0-4.8) k/uL Sodium 128 L (137-145) mmol/L Potassium 5.5 H (3.5-5.1) mmol/L Chloride 96 L (98-107) mmol/L BUN 79 H (9-20) mg/dL Creatinine 2.36 H (0.66-1.25) mg/dL Glucose 69 L (74-99) mg/dL POC Glucose (mg/dL) 191 H (75-99) mg/dL Calcium 8.2 L (8.4-10.2) mg/dL Total Protein 6.0 L (6.3-8.2) g/dL Microbiology - Last 24 Hours (Table) 05/26/20 05:15 Blood Culture - Final Blood No Growth after 144 hours Assessment and Plan Plan: Assessment: 1. Acute kidney injury mostly prerenal from poor intake, losartan and diuresis. Renal function improved. Creatinine 2.36 today. 2. 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 Serologies negative in the past. 3. Hyperkalemia secondary to acute kidney injury, losartan RTA type IV. Cortisol level not low. 4. Hyponatremia secondary to chronic kidney disease. Slightly hypervolemic. Recent TSH normal. Urine sodium 30 and urine osmolality 417. 5. Acute on chronic diastolic CHF. Plan: 1200 mL fluid restriction. Encouraged oral intake. Add Demadex 10 mg once daily. Hold hydralazine for systolic blood pressure less than 125. Repeat potassium level this evening.
[2020-06-01 16:43] LABS: Glucose,Whole Blood 251 mg/dL (75-99)
--- NOTE | 2020-06-01 17:05 | P.PN ---
Subjective Progress Note Date: 06/01/20 70-year-old male was admitted for generalized weakness and he discharged from the hospital after he was treated for healthcare associated pneumonia and chronic diastolic dysfunction. Patient is being treated for the same during this hospital physician patient is presently not on any antibiotics chest x-ray was consistent with interstitial prominence because of which patient is being treated with Lasix IV. Patient to creatinine continued to get worse serum sodium as well as a potassium continue to get worse potassium was elevated at 5.7 nephrology was subsequently consulted nephrology evaluated the patient. He. Patient clinically doesn't doesn't appear to be in CHF chest x-ray is not typical for CHF either because of which we're discontinuing the IV Lasix. Patient was tested for Covid 19 twice and was negative. 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 Because of the toxic encephalopathy patient also has myoclonic jerks. Patient creatinine is 3.3 and patient is also on 600 mg 3 times a day of Neurontin which is being discontinued now when his encephalopathy resolves it he can be started on a lower dose that is 100 mg by mouth because of his poor renal function patient is also on tramadol which is being discontinued. Patient apparently had seizures in the past because of which patient is on Keppra because of this reason he will not be a candidate for continuation of tramadol. Tramadol can also cause myoclonic jerks. Patient was completely confused a year in the day bit better. Patient also received Ativan which will be discontinued and will use Seroquel for agitation if needed at nighttime. Patient is more awake alert oriented 2-3 when I evaluated the patient and able to provide answers be less encephalopathic when I evaluated the patient. 05/28/2020 Patient the has significant clinical improvement today patient is alert oriented almost 3 today. Patient denied any fever chills. Patient creatinine did improve a bit. Patient is much less encephalopathic. But had an episode of confusion last night. 05/29/2020 Patient is sitting in the chair patient is alert oriented 3 when more alert compared to yesterday. Although patient is complaining of back pain which is chronic patient has chronic abdominal pain as well as neuropathic pain. will be given [place] unfortunately I cannot use tramadol or nonsteroidal anti- inflammatory medications. Patient will be started on a low-dose of Lyrica for neuropathic pain. Patient's creatinine improved to 2.99 today. 05/30/2020 Patient circumflex creatinine continue to improve. Patient is getting IV iron. He is still having neuropathic pain. His pain although overall did improve. Patient had an abdominal x-ray showing ileus most probably gastroenteritis rather than ileus patient is having diarrhea general surgery will evaluate the patient. 05/31/20 He is confused and lethargic this morning, pulling on his O2 line and hypoxic. His renal function is returning to baseline. Pt is passing gas and has had a BM. 06/01/2020 confused during the night pulling off BiPAP, required Haldol. Pleasantly confused this morning, conversing, answering questions.. Creatinine at baseline. Weak nonproductive cough. Consumed 100% of breakfast and 0% at lunch. Positive bowel movement. Continues on fluid restrictions, Sodium 128, potassium 5.5, creatinine down to 2.36. Hypertensive, receiving hydralazine. Objective - Vital Signs Vital signs: Vital Signs Temp 97.8 F 06/01/20 08:00 Pulse 73 06/01/20 08:00 Resp 20 06/01/20 08:00 BP 160/72 06/01/20 08:00 Pulse Ox 92 L 06/01/20 08:00 Intake & Output 05/31/20 06/01/20 06/01/20 18:59 06:59 18:59 Intake Total 240 180 Output Total 475 Balance -235 180 Weight 124.5 kg 122 kg Intake: Oral 240 180 Output: Urine 475 Other: Voiding Method Indwelling Catheter Indwelling Catheter # Bowel Movements 3 - Exam - Exam General: lethargic, weak, obese. Vitals reviewed Lungs: normal respiratory effort, no wheezes or rales CV: Regular rate and rhythm, systolic murmur. Trace edema, Peripheral pulses 2+ Abdomen: soft, distended, diffuse tenderness, positive bowel sounds Neuro: confused, weak Skin: warm and dry. - Labs CBC & Chem 7: 06/01/20 08:21 06/01/20 08:21 Labs: Abnormal Lab Results - Last 24 Hours (Table) 05/31/20 05/31/20 06/01/20 Range/Units 17:18 20:43 08:21 RBC 3.12 L (4.30-5.90) m/uL Hgb 9.3 L (13.0-17.5) gm/dL Hct 27.3 L (39.0-53.0) % Plt Count 105 L (150-450) k/uL Lymphocytes # 0.5 L (1.0-4.8) k/uL Sodium (137-145) mmol/L Potassium 5.6 H (3.5-5.1) mmol/L Chloride (98-107) mmol/L BUN (9-20) mg/dL Creatinine (0.66-1.25) mg/dL Glucose (74-99) mg/dL POC Glucose (mg/dL) 139 H (75-99) mg/dL Calcium (8.4-10.2) mg/dL Total Protein (6.3-8.2) g/dL 06/01/20 Range/Units 08:21 RBC (4.30-5.90) m/uL Hgb (13.0-17.5) gm/dL Hct (39.0-53.0) % Plt Count (150-450) k/uL Lymphocytes # (1.0-4.8) k/uL Sodium 128 L (137-145) mmol/L Potassium 5.5 H (3.5-5.1) mmol/L Chloride 96 L (98-107) mmol/L BUN 79 H (9-20) mg/dL Creatinine 2.36 H (0.66-1.25) mg/dL Glucose 69 L (74-99) mg/dL POC Glucose (mg/dL) (75-99) mg/dL Calcium 8.2 L (8.4-10.2) mg/dL Total Protein 6.0 L (6.3-8.2) g/dL Microbiology - Last 24 Hours (Table) 05/26/20 05:15 Blood Culture - Final Blood No Growth after 144 hours Assessment and Plan Assessment: (1) Acute renal failure, prerenal secondary to diuresing, medication induced, with losartan discontinued, oral intake, improving, at baseline. Current Visit: Yes Status: Acute Code(s): N17.9 - ACUTE KIDNEY FAILURE, UNSPECIFIED SNOMED Code(s): 10725534 (2) chronic kidney disease, stage IV secondary to diabetic kidney disease with baseline 2.5. (3) hyperkalemia secondary to acute renal failure (4) hyponatremia, hypervolemic, secondary to see daily (5) CHF (congestive heart failure), acute on chronic diastolic dysfunction Current Visit: Yes Status: Acute Code(s): I50.9 - HEART FAILURE, UNSPECIFIED SNOMED Code(s): 31245182 (6) COPD (chronic obstructive pulmonary disease) Current Visit: Yes Status: Acute Code(s): J44.9 - CHRONIC OBSTRUCTIVE PULMONARY DISEASE, UNSPECIFIED SNOMED Code(s): 25584880 (7) Tetrahydrocannabinol (THC) use disorder, mild, abuse Current Visit: No Status: Acute Code(s): F12.10 - CANNABIS ABUSE, UNCOMPLICATED SNOMED Code(s): 93246447 (8) CAD with history of stents (9) chronic paroxysmal atrial fibrillation, anticoagulated with Eliquis (10) hypertension (11) hyperlipidemia (12) myoclonic jerks suspect related to metabolic dysfunction, improved (13) obstructive sleep apnea Plan: Continue current medication regime ,monitoring and symptomatic treatme nt. Haldol daily prn for confusion. Received a dose of steroids, with repeat sodium and potassium level this afternoon as per nephrology. Encourage oral intake. Maintain fluid restrictions. Follow closely with multiple consults. The impression and plan of care has been dictated as directed. : I performed a history and examination of this patient, discussed the same with the dictator. I agree with the dictator's note ,documented as a scribe. Any additional findings or plans will be noted.
[2020-06-01] MEDS: TORSEMIDE 20 MG TAB PO SCH (17:18)
[2020-06-01] MEDS: INSULIN ASPART (NovoLOG) 100 UNIT/ML VIAL SQ SCH ×2 (18:35→20:42)
[2020-06-01 19:13] LABS: Potassium 5.8 mmol/L (3.5-5.1)
[2020-06-01 21:02] LABS: Glucose,Whole Blood 134 mg/dL (75-99)
[2020-06-02] MEDS: INSULIN ASPART (NovoLOG) 100 UNIT/ML VIAL SQ SCH ×4 (06:29→22:08)
[2020-06-02 06:30] LABS: Glucose,Whole Blood 106 mg/dL (75-99)
[2020-06-02] MEDS: carvediloL 12.5 MG TAB PO SCH ×2 (06:49→17:16)
[2020-06-02 07:56] LABS: Albumin 3.3 g/dL (3.5-5.0); Calcium 7.9 mg/dL (8.4-10.2); Magnesium 2.4 mg/dL (1.6-2.3); Potassium 5.7 mmol/L (3.5-5.1); Total Bilirubin 0.3 mg/dL (0.2-1.3); Total Protein 5.4 g/dL (6.3-8.2)
[2020-06-02 08:01] LABS: Basophils % (A) 0 %; Eosinophils % (A) 0 %; HCT 24.3 % (39.0-53.0); HGB 8.2 gm/dL (13.0-17.5); Lymphocytes # (A) 0.2 k/uL (1.0-4.8); Lymphocytes % (A) 3 %; MCH 29.8 pg (25.0-35.0); MCHC 33.8 g/dL (31.0-37.0); MCV 87.9 fL (80.0-100.0); Mean Platelet Volume 9.4; Monocytes # (A) 0.6 k/uL (0-1.0); Monocytes % (A) 9 %; Neutrophils # (A) 6.3 k/uL (1.3-7.7); Neutrophils % (A) 87 %; RBC 2.77 m/uL (4.30-5.90); WBC 7.3 k/uL (3.8-10.6)
[2020-06-02] MEDS: IPRATROPIUM-ALBUTEROL 3 ML NEB INHALATION SCH ×4 (08:40→20:01)
[2020-06-02] MEDS ORDERED: FUROSEMIDE 10 MG/ML 4 ML VIAL IV ONE (10:00)
--- NOTE | 2020-06-02 10:19 | XR ---
EXAMINATION TYPE: XR chest 1V portable DATE OF EXAM: 06/02/2020 COMPARISON: 05/31/2020 INDICATION: : Short of breath TECHNIQUE: Single frontal view of the chest is obtained. FINDINGS: The heart size is very prominent. The pulmonary vasculature is slightly prominent. Left lower lobe infiltrate is present. Small left pleural effusion may be present. Some developing chavarria bsegmental atelectasis may be at the right base. IMPRESSION: 1. Marked cardiomegaly. Mild vascular prominence may be present. 2. Left lower lobe infiltrate and/or pleural effusion
[2020-06-02 10:30] LABS: Platelet Count 97 k/uL (150-450); Poikilocytosis (M) Present
--- NOTE | 2020-06-02 10:35 | P.PN ---
Subjective Patient is seen in follow-up for acute kidney injury on chronic kidney disease. Renal function is stable. Has a Wood catheter. Nonoliguric. On BiPAP. Vital signs are stable. General: The patient appeared well nourished and normally developed. HEENT: On BiPAP. LUNGS: Breath sounds decreased. HEART: Rate and Rhythm are regular. ABDOMEN: Soft, obese. EXTREMITITES: Trace edema. Objective - Vital Signs Vital signs: Vital Signs Temp 97.5 F L 06/02/20 04:00 Pulse 75 06/02/20 08:58 Resp 24 06/02/20 04:00 BP 146/75 06/02/20 04:00 Pulse Ox 94 L 06/02/20 04:00 Intake & Output 06/01/20 06/02/20 06/02/20 18:59 06:59 18:59 Intake Total 360 Output Total 1350 600 Balance -990 -600 Weight 128 kg Intake: Oral 360 Output: Urine 1350 600 Other: Voiding Method Indwelling Catheter Indwelling Catheter - Labs CBC & Chem 7: 06/02/20 07:05 06/02/20 07:05 Labs: Abnormal Lab Results - Last 24 Hours (Table) 06/01/20 06/01/20 06/01/20 Range/Units 11:33 16:41 18:33 RBC (4.30-5.90) m/uL Hgb (13.0-17.5) gm/dL Hct (39.0-53.0) % Plt Count (150-450) k/uL Lymphocytes # (1.0-4.8) k/uL Sodium 126 L (137-145) mmol/L Potassium 5.8 H (3.5-5.1) mmol/L BUN (9-20) mg/dL Creatinine (0.66-1.25) mg/dL POC Glucose (mg/dL) 191 H 251 H (75-99) mg/dL Calcium (8.4-10.2) mg/dL Magnesium (1.6-2.3) mg/dL Total Protein (6.3-8.2) g/dL Albumin (3.5-5.0) g/dL 06/01/20 06/02/20 06/02/20 Range/Units 20:33 06:28 07:05 RBC 2.77 L (4.30-5.90) m/uL Hgb 8.2 L (13.0-17.5) gm/dL Hct 24.3 L (39.0-53.0) % Plt Count 97 L (150-450) k/uL Lymphocytes # 0.2 L (1.0-4.8) k/uL Sodium (137-145) mmol/L Potassium (3.5-5.1) mmol/L BUN (9-20) mg/dL Creatinine (0.66-1.25) mg/dL POC Glucose (mg/dL) 134 H 106 H (75-99) mg/dL Calcium (8.4-10.2) mg/dL Magnesium (1.6-2.3) mg/dL Total Protein (6.3-8.2) g/dL Albumin (3.5-5.0) g/dL 06/02/20 Range/Units 07:05 RBC (4.30-5.90) m/uL Hgb (13.0-17.5) gm/dL Hct (39.0-53.0) % Plt Count (150-450) k/uL Lymphocytes # (1.0-4.8) k/uL Sodium 130 L (137-145) mmol/L Potassium 5.7 H (3.5-5.1) mmol/L BUN 82 H (9-20) mg/dL Creatinine 2.34 H (0.66-1.25) mg/dL POC Glucose (mg/dL) (75-99) mg/dL Calcium 7.9 L (8.4-10.2) mg/dL Magnesium 2.4 H (1.6-2.3) mg/dL Total Protein 5.4 L (6.3-8.2) g/dL Albumin 3.3 L (3.5-5.0) g/dL Microbiology - Last 24 Hours (Table) 05/26/20 05:15 Blood Culture - Final Blood No Growth after 144 hours Assessment and Plan Plan: Assessment: 1. Acute kidney injury mostly prerenal from poor intake, losartan and diuresis. Renal function stable. 2. 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 Serologies negative in the past. 3. Hyperkalemia secondary to acute kidney injury, losartan RTA type IV. Cortisol level not low. 4. Hyponatremia secondary to chronic kidney disease. Slightly hypervolemic. Recent TSH normal. Urine sodium 30 and urine osmolality 417. [place] [facility] [place]. 5. Acute on chronic diastolic CHF. 6. Anemia of chronic kidney disease. Rule out iron deficiency. Plan: 1200 mL fluid restriction. Encouraged oral intake. Maintain Demadex. Lasix 40 mg IV once today. Repeat chest x-ray. Hold hydralazine for systolic blood pressure less than 125. Check iron studies.
--- NOTE | 2020-06-02 10:39 | P.PN ---
Subjective Progress Note Date: 06/02/20 70-year-old male was admitted for generalized weakness and he discharged from the hospital after he was treated for healthcare associated pneumonia and chronic diastolic dysfunction. Patient is being treated for the same during this hospital physician patient is presently not on any antibiotics chest x-ray was consistent with interstitial prominence because of which patient is being treated with Lasix IV. Patient to creatinine continued to get worse serum sodium as well as a potassium continue to get worse potassium was elevated at 5.7 nephrology was subsequently consulted nephrology evaluated the patient. He. Patient clinically doesn't doesn't appear to be in CHF chest x-ray is not typical for CHF either because of which we're discontinuing the IV Lasix. Patient was tested for Covid 19 twice and was negative. 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 Because of the toxic encephalopathy patient also has myoclonic jerks. Patient creatinine is 3.3 and patient is also on 600 mg 3 times a day of Neurontin which is being discontinued now when his encephalopathy resolves it he can be started on a lower dose that is 100 mg by mouth because of his poor renal function patient is also on tramadol which is being discontinued. Patient apparently had seizures in the past because of which patient is on Keppra because of this reason he will not be a candidate for continuation of tramadol. Tramadol can also cause myoclonic jerks. Patient was completely confused a year in the day bit better. Patient also received Ativan which will be discontinued and will use Seroquel for agitation if needed at nighttime. Patient is more awake alert oriented 2-3 when I evaluated the patient and able to provide answers be less encephalopathic when I evaluated the patient. 05/28/2020 Patient the has significant clinical improvement today patient is alert oriented almost 3 today. Patient denied any fever chills. Patient creatinine did improve a bit. Patient is much less encephalopathic. But had an episode of confusion last night. 05/29/2020 Patient is sitting in the chair patient is alert oriented 3 when more alert compared to yesterday. Although patient is complaining of back pain which is chronic patient has chronic abdominal pain as well as neuropathic pain. will be given [place] unfortunately I cannot use tramadol or nonsteroidal anti- inflammatory medications. Patient will be started on a low-dose of Lyrica for neuropathic pain. Patient's creatinine improved to 2.99 today. 05/30/2020 Patient circumflex creatinine continue to improve. Patient is getting IV iron. He is still having neuropathic pain. His pain although overall did improve. Patient had an abdominal x-ray showing ileus most probably gastroenteritis rather than ileus patient is having diarrhea general surgery will evaluate the patient. 05/31/20 He is confused and lethargic this morning, pulling on his O2 line and hypoxic. His renal function is returning to baseline. Pt is passing gas and has had a BM. 06/01/2020 confused during the night pulling off BiPAP, required Haldol. Pleasantly confused this morning, conversing, answering questions.. Creatinine at baseline. Weak nonproductive cough. Consumed 100% of breakfast and 0% at lunch. Positive bowel movement. Continues on fluid restrictions, Sodium 128, potassium 5.5, creatinine down to 2.36. Hypertensive, receiving hydralazine. 06/02/2020 maintained on BiPAP, tolerating better this morning. Required Haldol during the night. Received a dose of [place] yesterday.Maintained on fluid restrictions, Demadex with continued improvement. Sodium up to 1:30, creatinine 2.34, K5.7. Blood pressure controlled. Objective - Vital Signs Vital signs: Vital Signs Temp 97.5 F L 06/02/20 04:00 Pulse 75 06/02/20 08:58 Resp 24 06/02/20 04:00 BP 146/75 06/02/20 04:00 Pulse Ox 94 L 06/02/20 04:00 Intake & Output 06/01/20 06/02/20 06/02/20 18:59 06:59 18:59 Intake Total 360 Output Total 1350 600 Balance -990 -600 Weight 128 kg Intake: Oral 360 Output: Urine 1350 600 Other: Voiding Method Indwelling Catheter Indwelling Catheter - Exam - Exam General: Sitting up in bed, wearing BiPAP , tired appearing ,Vitals reviewed Lungs: normal respiratory effort, no wheezes or rales. Diffuse rhonchi CV: Regular rate and rhythm, systolic murmur. Trace edema, Peripheral pulses 2+ Abdomen: soft, distended, diffuse tenderness, positive bowel sounds Neuro: confused, weak Skin: warm and dry. - Labs CBC & Chem 7: 06/02/20 07:05 06/02/20 07:05 Labs: Abnormal Lab Results - Last 24 Hours (Table) 06/01/20 06/01/20 06/01/20 Range/Units 11:33 16:41 18:33 RBC (4.30-5.90) m/uL Hgb (13.0-17.5) gm/dL Hct (39.0-53.0) % Sodium 126 L (137-145) mmol/L Potassium 5.8 H (3.5-5.1) mmol/L BUN (9-20) mg/dL Creatinine (0.66-1.25) mg/dL POC Glucose (mg/dL) 191 H 251 H (75-99) mg/dL Calcium (8.4-10.2) mg/dL Magnesium (1.6-2.3) mg/dL Total Protein (6.3-8.2) g/dL Albumin (3.5-5.0) g/dL 06/01/20 06/02/20 06/02/20 Range/Units 20:33 06:28 07:05 RBC 2.77 L (4.30-5.90) m/uL Hgb 8.2 L (13.0-17.5) gm/dL Hct 24.3 L (39.0-53.0) % Sodium (137-145) mmol/L Potassium (3.5-5.1) mmol/L BUN (9-20) mg/dL Creatinine (0.66-1.25) mg/dL POC Glucose (mg/dL) 134 H 106 H (75-99) mg/dL Calcium (8.4-10.2) mg/dL Magnesium (1.6-2.3) mg/dL Total Protein (6.3-8.2) g/dL Albumin (3.5-5.0) g/dL 06/02/20 Range/Units 07:05 RBC (4.30-5.90) m/uL Hgb (13.0-17.5) gm/dL Hct (39.0-53.0) % Sodium 130 L (137-145) mmol/L Potassium 5.7 H (3.5-5.1) mmol/L BUN 82 H (9-20) mg/dL Creatinine 2.34 H (0.66-1.25) mg/dL POC Glucose (mg/dL) (75-99) mg/dL Calcium 7.9 L (8.4-10.2) mg/dL Magnesium 2.4 H (1.6-2.3) mg/dL Total Protein 5.4 L (6.3-8.2) g/dL Albumin 3.3 L (3.5-5.0) g/dL Microbiology - Last 24 Hours (Table) 05/26/20 05:15 Blood Culture - Final Blood No Growth after 144 hours Assessment and Plan Assessment: (1) Acute renal failure, prerenal secondary to diuresing, medication induced, with losartan discontinued, oral intake, improving, at baseline. Current Visit: Yes Status: Acute Code(s): N17.9 - ACUTE KIDNEY FAILURE, UNSPECIFIED SNOMED Code(s): 27747934 (2) chronic kidney disease, stage IV secondary to diabetic kidney disease with baseline 2.5. (3) hyperkalemia secondary to acute renal failure (4) hyponatremia, hypervolemic, secondary to see daily (5) CHF (congestive heart failure), acute on chronic diastolic dysfunction Current Visit: Yes Status: Acute Code(s): I50.9 - HEART FAILURE, UNSPECIFIED SNOMED Code(s): 86823768 (6) COPD (chronic obstructive pulmonary disease) Current Visit: Yes Status: Acute Code(s): J44.9 - CHRONIC OBSTRUCTIVE PULMONARY DISEASE, UNSPECIFIED SNOMED Code(s): 46086526 (7) Tetrahydrocannabinol (THC) use disorder, mild, abuse Current Visit: No Status: Acute Code(s): F12.10 - CANNABIS ABUSE, UNCOMPLICATED SNOMED Code(s): 03645789 (8) CAD with history of stents (9) chronic paroxysmal atrial fibrillation, anticoagulated with Eliquis (10) hypertension (11) hyperlipidemia (12) myoclonic jerks suspect related to metabolic dysfunction, improved (13) obstructive sleep apnea Plan: Continue current medication regime ,monitoring and symptomatic treatment. Continue on fluid restrictions, Demadex as per nephrology .Haldol daily prn for confusion. Close monitoring of renal function, electrolytes with repeat labs ordered for a.m. The impression and plan of care has been dictated as directed. : I performed a history and examination of this patient, discussed the same with the dictator. I agree with the dictator's note ,documented as a scribe. Any additional findings or plans will be noted.
[2020-06-02 12:11] LABS: Glucose,Whole Blood 129 mg/dL (75-99)
--- NOTE | 2020-06-02 12:17 | P.PN ---
Subjective Progress Note Date: 06/02/20 CHIEF COMPLAINT: Abdominal pain HISTORY OF PRESENT ILLNESS: Surgical service is following in regards to p claudine's ileus. Patient did have a small bowel movement last night per patient's nurse. Patient currently has his BiPAP on and is sleeping. He is on regular diet. Afebrile. WBC 7.3 Hgb 8.2 sodium 130 potassium 5.7 PHYSICAL EXAM: VITAL SIGNS: Reviewed. GENERAL: Well-developed in no acute distress. HEENT: No sclera icterus. Extraocular movements grossly intact. Moist buccal mucosa. Head is atraumatic, normocephalic. ABDOMEN: Soft. Obese. Nondistended. Nontender. NEUROLOGIC: Alert and oriented. Cranial nerves II through XII grossly intact. ASSESSMENT: 1. Ileus resolving PLAN: -Continue supportive care -No surgical intervention planned Physician Manufacturing Engineering Manager note has been reviewed by physician. Signing provider agrees with the documented findings, assessment, and plan of care. Objective - Vital Signs Vital signs: Vital Signs Temp 97.5 F L 06/02/20 04:00 Pulse 75 06/02/20 12:07 Resp 24 06/02/20 04:00 BP 146/75 06/02/20 04:00 Pulse Ox 94 L 06/02/20 04:00 Intake & Output 06/01/20 06/02/20 06/02/20 18:59 06:59 18:59 Intake Total 360 Output Total 1350 600 Balance -990 -600 Weight 128 kg Intake: Oral 360 Output: Urine 1350 600 Other: Voiding Method Indwelling Catheter Indwelling Catheter - Labs CBC & Chem 7: 06/02/20 07:05 06/02/20 07:05 Labs: Abnormal Lab Results - Last 24 Hours (Table) 06/01/20 06/01/20 06/01/20 Range/Units 16:41 18:33 20:33 RBC (4.30-5.90) m/uL Hgb (13.0-17.5) gm/dL Hct (39.0-53.0) % Plt Count (150-450) k/uL Lymphocytes # (1.0-4.8) k/uL Sodium 126 L (137-145) mmol/L Potassium 5.8 H (3.5-5.1) mmol/L BUN (9-20) mg/dL Creatinine (0.66-1.25) mg/dL POC Glucose (mg/dL) 251 H 134 H (75-99) mg/dL Calcium (8.4-10.2) mg/dL Magnesium (1.6-2.3) mg/dL Total Protein (6.3-8.2) g/dL Albumin (3.5-5.0) g/dL 06/02/20 06/02/20 06/02/20 Range/Units 06:28 07:05 07:05 RBC 2.77 L (4.30-5.90) m/uL Hgb 8.2 L (13.0-17.5) gm/dL Hct 24.3 L (39.0-53.0) % Plt Count 97 L (150-450) k/uL Lymphocytes # 0.2 L (1.0-4.8) k/uL Sodium 130 L (137-145) mmol/L Potassium 5.7 H (3.5-5.1) mmol/L BUN 82 H (9-20) mg/dL Creatinine 2.34 H (0.66-1.25) mg/dL POC Glucose (mg/dL) 106 H (75-99) mg/dL Calcium 7.9 L (8.4-10.2) mg/dL Magnesium 2.4 H (1.6-2.3) mg/dL Total Protein 5.4 L (6.3-8.2) g/dL Albumin 3.3 L (3.5-5.0) g/dL 06/02/20 Range/Units 11:41 RBC (4.30-5.90) m/uL Hgb (13.0-17.5) gm/dL Hct (39.0-53.0) % Plt Count (150-450) k/uL Lymphocytes # (1.0-4.8) k/uL Sodium (137-145) mmol/L Potassium (3.5-5.1) mmol/L BUN (9-20) mg/dL Creatinine (0.66-1.25) mg/dL POC Glucose (mg/dL) 129 H (75-99) mg/dL Calcium (8.4-10.2) mg/dL Magnesium (1.6-2.3) mg/dL Total Protein (6.3-8.2) g/dL Albumin (3.5-5.0) g/dL
[2020-06-02] MEDS: TAMSULOSIN 0.4 MG CAP.ER.24H PO SCH (12:39)
[2020-06-02] MEDS: CITALOPRAM HYDROBROMIDE 20 MG TAB PO SCH (12:40)
[2020-06-02] MEDS: FERROUS SULFATE 325 MG TAB PO SCH (12:40)
[2020-06-02] MEDS: APIXABAN 2.5 MG TABLET PO SCH ×2 (12:40→23:03)
[2020-06-02] MEDS: GABAPENTIN 100 MG CAP PO SCH ×2 (12:40→22:07)
[2020-06-02] MEDS: ATORVASTATIN 40 MG TAB PO SCH (12:40)
[2020-06-02] MEDS: CYANOCOBALAMIN 1,000 MCG/ML 1 ML VIAL IM SCH (12:40)
[2020-06-02] MEDS: ASPIRIN 81 MG PO SCH (12:40)
[2020-06-02] MEDS: hydrALAZINE HCL 50 MG TAB PO SCH ×3 (12:41→23:03)
[2020-06-02] MEDS: PREGABALIN 50 MG CAP PO SCH ×2 (12:41→22:08)
[2020-06-02] MEDS: GLIMEPIRIDE 1 MG TAB PO SCH (12:41)
--- NOTE | 2020-06-02 14:01 | P.PN ---
Subjective Progress Note Date: 06/02/20 HISTORY OF PRESENT ILLNESS: 05/26/2020 This is a 70-year-old male with a past medical history significant for coronary artery disease with PCI to proximal mid and distal RCA in 2018, hypertension, hyperlipidemia, paroxysmal atrial fibrillation, diabetes mellitus, TIA, chronic kidney disease, COPD, aortic stenosis, and former nicotine dependence. Patient follows in the office with Dr. Eng. We have been asked to see the patient in consultation for CHF. Patient examined at the bedside in the emergency room. Patient is alert and oriented 3 when asked, however he appears somewhat confused and is unable to give a thorough history of why he came to the emergency room. There is no family present at the time of examination. He continues to repeat that he had a tooth pulled yesterday. He denies chest pain or pressure. He reports mild shortness of breath. Denies dizziness or lightheadedness. EKG reveals sinus bradycardia with no signs of acute ischemia Chest xray moderate vascular congestion. Small bilateral pleural effusions. Severe cardiomegaly Laboratory data: WBC 9.1. Hemoglobin 9.5. Platelet count 119. D-dimer 0.65. Sodium 132. Potassium 5.6. BUN 68. Creatinine 3.94. Troponin negative 2. BNP 6960. Current home cardiac medications include hydralazine 50 g 3 times a day, amlodipine 10 mg daily, losartan 25 mg daily, Lasix 40 mg twice a day, Coreg 25 mg twice a day, Lipitor 40 mg daily, aspirin 81 mg daily, and Eliquis 2.5 mg twice a day Most recent echocardiogram obtained in April 2020 reveals ejection fraction 55-60%, mild aortic stenosis, mild mitral regurgitation, mild tricuspid regurgitation Cardiac catheterization history: November [address] Eng with successful stenting of distal RCA, mid RCA, and proximal RCA 05/31/2020 Patient examined this morning at the bedside. Patient is confused. He is wearing a BiPAP however he does not want to keep it on and continues to pull it off this morning. Oxygen saturations greater than 90% when patient is wearing BiPAP. Creatinine 2.75, down from 2.80. Fluid balance over the last 24 hours is +550 mL. Nephrology is following. 06/01/2020 Patient examined this morning at the bedside. Patient is much more awake and cooperative today. He is on a nasal cannula with oxygen saturations greater than 92%. He denies chest pain or pressure. He reports mild shortness of breath. Sodium 128. Potassium 5.5. BUN 79. Creatinine 2.36. Chest x-ray from yesterday revealed improved left midlung linear atelectasis. Background cardiomegaly and elevated left hemidiaphragm with bibasilar opacities favoring atelectasis and/or scarring redemonstrated. 06/02/2020 Patient examined this morning at the bedside. Patient is on BiPAP with 60% FiO2. Patient reports feeling mildly short of breath. Demadex was added yesterday per nephrology. Creatinine 2.34 today. Fluid balance over the last 24 hours is -1590 mL. PHYSICAL EXAM: VITAL SIGNS: Reviewed. GENERAL: Well-developed in no acute distress. HEENT: Head is normocephalic. Pupils are equal, round. Sclerae anicteric. Mucous membranes of the mouth are moist. Neck supple. No JVD or thyromegaly LUNGS: Respirations even and unlabored. Lungs diminished. HEART: Regular rate and rhythm. S1 and S2 heard. Systolic murmur noted. ABDOMEN: Soft. Nondistended. Nontender. EXTREMITIES: Normal range of motion. No clubbing or cyanosis. Peripheral pulses intact. Trace bilateral lower extremity edema NEUROLOGIC: Awake and alert. Oriented x 3. ASSESSMENT: Acute exacerbation of chronic diastolic heart failure, EF 55-60% Small bilateral pleural effusions, per x-ray on admission Coronary artery disease with previous PCI to the RCA x 32017 Mild aortic stenosis Paroxysmal atrial fibrillation, on anticoagulation with Eliquis Acute on chronic kidney disease Peripheral vascular disease with previous left carotid endarterectomy Hypertension Hyperlipidemia COPD PLAN: Continue current cardiac medications Continue Eliquis for anticoagulation Continue telemetry monitoring Nephrology following Diuresis management per nephrology. Patient currently receiving Demadex daily. Patient to receive a 1 time dose of Lasix today per nephrology Daily weights Accurate I&O's Monitor kidney function Further recommendations pending patient course Nurse practitioner note has been reviewed by physician. Signing provider agrees with the documented findings, assessment, and plan of care. Objective - Vital Signs Vital signs: Vital Signs Temp 99.5 F 06/02/20 11:15 Pulse 75 06/02/20 12:07 Resp 18 06/02/20 11:15 BP 164/71 06/02/20 11:15 Pulse Ox 93 L 06/02/20 11:15 Intake & Output 06/01/20 06/02/20 06/02/20 18:59 06:59 18:59 Intake Total 360 Output Total 1350 600 Balance -990 -600 Weight 128 kg Intake: Oral 360 Output: Urine 1350 600 Other: Voiding Method Indwelling Catheter Indwelling Catheter Indwelling Catheter - Labs CBC & Chem 7: 06/02/20 07:05 06/02/20 07:05 Labs: Abnormal Lab Results - Last 24 Hours (Table) 06/01/20 06/01/20 06/01/20 Range/Units 16:41 18:33 20:33 RBC (4.30-5.90) m/uL Hgb (13.0-17.5) gm/dL Hct (39.0-53.0) % Plt Count (150-450) k/uL Lymphocytes # (1.0-4.8) k/uL Sodium 126 L (137-145) mmol/L Potassium 5.8 H (3.5-5.1) mmol/L BUN (9-20) mg/dL Creatinine (0.66-1.25) mg/dL POC Glucose (mg/dL) 251 H 134 H (75-99) mg/dL Calcium (8.4-10.2) mg/dL Magnesium (1.6-2.3) mg/dL Total Protein (6.3-8.2) g/dL Albumin (3.5-5.0) g/dL 06/02/20 06/02/20 06/02/20 Range/Units 06:28 07:05 07:05 RBC 2.77 L (4.30-5.90) m/uL Hgb 8.2 L (13.0-17.5) gm/dL Hct 24.3 L (39.0-53.0) % Plt Count 97 L (150-450) k/uL Lymphocytes # 0.2 L (1.0-4.8) k/uL Sodium 130 L (137-145) mmol/L Potassium 5.7 H (3.5-5.1) mmol/L BUN 82 H (9-20) mg/dL Creatinine 2.34 H (0.66-1.25) mg/dL POC Glucose (mg/dL) 106 H (75-99) mg/dL Calcium 7.9 L (8.4-10.2) mg/dL Magnesium 2.4 H (1.6-2.3) mg/dL Total Protein 5.4 L (6.3-8.2) g/dL Albumin 3.3 L (3.5-5.0) g/dL 06/02/20 Range/Units 11:41 RBC (4.30-5.90) m/uL Hgb (13.0-17.5) gm/dL Hct (39.0-53.0) % Plt Count (150-450) k/uL Lymphocytes # (1.0-4.8) k/uL Sodium (137-145) mmol/L Potassium (3.5-5.1) mmol/L BUN (9-20) mg/dL Creatinine (0.66-1.25) mg/dL POC Glucose (mg/dL) 129 H (75-99) mg/dL Calcium (8.4-10.2) mg/dL Magnesium (1.6-2.3) mg/dL Total Protein (6.3-8.2) g/dL Albumin (3.5-5.0) g/dL
--- NOTE | 2020-06-02 15:36 | CDI ---
Documentation Clarification Form Date: 06/02/2020 03:32:55 PM From: Sue JensenSnellMEI [email or web address], CCDS Admit Date: 05/26/2020 06:15:00 AM Patient Name: Dane Shah Visit Number: [id number] Discharge Date: ATTENTION: The Clinical Documentation Specialists (CDI) and [facility] Coding Staff appreciate your assistance in clarifying documentation. Please respond to the clarification below the line at the bottom and electronically sign. The CDI & [facility] Coding staff will review the response and follow-up if needed. Please note: Queries are made part of the Legal Health Record. If you have any questions, please contact the author of this message via ITS. Dr. Cha Manuel: The patient is admitted with Acute Exacerbation of Diastolic CHF and related Dyspnea. The patient's O2 Sat dropped to 77 on RA on 05/30. History/Risk Factors per the 05/26 Pulmonary Consult Medical History: Chronic Diastolic CHF, Pneumonia, DM II with Diabetic Neuropathy, CAD with Stent, Hypertension, Hyperlipidemia, CKD III, Aortic Stenosis, COPD, CVA, JOSE, Obesity, BMI >40, Former smoker. Clinical Indicators: Presented to the ED on 05/26 with SOB, Headache, Upper Respiratory Infection. ED Clinical Impression: DAILY, COPD, CHF, Hypoxia and Weakness. Vital signs 05/26: T 97.8, P 60 - 53, R 18 - 20 (SOB), BP 113/54, PO 90 RA - 98 40% BiPAP. Vital signs 05/30: T 97.5, P 56, R 18, BP 109/54, PO 77 RA - 87 35% BiPAP 05/27 ABG: pH 7.26, pCO2 55, pO2 73, Total CO2 27 Treatment 05/26: INH Ventolin, IV fuid bolus 1,000 mls @ 999 mls/hr q1H, IV fluid 1,000 mls @ 130 mls/hr q7H, I Decadron, IV Duoneb, IV Lasix 40 mg q12H, INH Atrovent. Treatment 05/30: IV Ferric Nagluconate x1, IV Lasix 40 mg x2 In your professional opinion, can you please clarify if these findings signify one of the following conditions? [ ] Acute Respiratory Failure [ ] Acute on Chronic Respiratory Failure [ ] Chronic Respiratory Failure [ ] Other Diagnosis, please specify [ ] Unable to determine Specificity: If known, further specify (if known): [ ] With hypercapnia? (pCO2 >50 and pH <7.35) [ ] With hypoxia? (pO2 <60 mm Hg or SpO2 <91% on room air) (Last Query Form Revision: November 2018) MTDD
[2020-06-02 17:12] LABS: Glucose,Whole Blood 118 mg/dL (75-99)
[2020-06-02] MEDS: TORSEMIDE 20 MG TAB PO SCH (17:15)
[2020-06-02 21:06] LABS: Glucose,Whole Blood 127 mg/dL (75-99)
[2020-06-03 04:09] LABS: % Iron Saturation 5.47 (15.00-50.00); Ferritin 483.7 ng/mL (22.0-322.0)
[2020-06-03] MEDS: INSULIN ASPART (NovoLOG) 100 UNIT/ML VIAL SQ SCH ×4 (06:15→20:55)
[2020-06-03 06:27] LABS: Glucose,Whole Blood 124 mg/dL (75-99)
[2020-06-03] MEDS: carvediloL 12.5 MG TAB PO SCH ×2 (06:27→17:10)
[2020-06-03] MEDS: IPRATROPIUM-ALBUTEROL 3 ML NEB INHALATION SCH ×4 (08:20→19:00)
[2020-06-03 08:24] LABS: Basophils % (A) 0 %; Eosinophils % (A) 0 %; HCT 21.7 % (39.0-53.0); HGB 7.3 gm/dL (13.0-17.5); Lymphocytes # (A) 0.3 k/uL (1.0-4.8); Lymphocytes % (A) 6 %; MCH 29.7 pg (25.0-35.0); MCHC 33.6 g/dL (31.0-37.0); MCV 88.4 fL (80.0-100.0); Monocytes # (A) 0.5 k/uL (0-1.0); Monocytes % (A) 10 %; Neutrophils # (A) 4.3 k/uL (1.3-7.7); Neutrophils % (A) 83 %; RBC 2.45 m/uL (4.30-5.90); RDW 15.2 % (11.5-15.5); WBC 5.2 k/uL (3.8-10.6)
[2020-06-03 08:28] LABS: Platelet Count 96 k/uL (150-450)
[2020-06-03 08:45] LABS: Albumin 2.7 g/dL (3.5-5.0); Calcium 7.9 mg/dL (8.4-10.2); Magnesium 2.2 mg/dL (1.6-2.3); Potassium 5.1 mmol/L (3.5-5.1); Total Bilirubin 0.3 mg/dL (0.2-1.3); Total Protein 4.8 g/dL (6.3-8.2)
[2020-06-03] MEDS: CITALOPRAM HYDROBROMIDE 20 MG TAB PO SCH (09:47)
[2020-06-03] MEDS: GLIMEPIRIDE 1 MG TAB PO SCH (09:47)
[2020-06-03] MEDS: hydrALAZINE HCL 50 MG TAB PO SCH ×3 (09:48→20:53)
[2020-06-03] MEDS: ASPIRIN 81 MG PO SCH (09:48)
[2020-06-03] MEDS: ATORVASTATIN 40 MG TAB PO SCH (09:48)
[2020-06-03] MEDS: TORSEMIDE 20 MG TAB PO SCH (09:48)
[2020-06-03] MEDS: GABAPENTIN 100 MG CAP PO SCH ×2 (09:48→20:53)
[2020-06-03] MEDS: PREGABALIN 50 MG CAP PO SCH ×2 (09:48→20:53)
[2020-06-03] MEDS: FERROUS SULFATE 325 MG TAB PO SCH (09:48)
[2020-06-03] MEDS: TAMSULOSIN 0.4 MG CAP.ER.24H PO SCH (09:48)
[2020-06-03] MEDS: APIXABAN 2.5 MG TABLET PO SCH ×2 (09:48→20:53)
[2020-06-03] MEDS: CYANOCOBALAMIN 1,000 MCG/ML 1 ML VIAL IM SCH (09:49)
[2020-06-03] MEDS ORDERED: FUROSEMIDE 10 MG/ML 4 ML VIAL IV STA (10:19)
--- NOTE | 2020-06-03 10:35 | P.PN ---
Subjective Patient is seen in follow-up for acute kidney injury on chronic kidney disease. Renal function is stable. Has a Wood catheter. Nonoliguric. On BiPAP. Difficult to wean. Vital signs are stable. General: The patient appeared well nourished and normally developed. HEENT: On BiPAP. LUNGS: Breath sounds decreased. HEART: Rate and Rhythm are regular. ABDOMEN: Soft, obese. EXTREMITITES: Trace edema. Objective - Vital Signs Vital signs: Vital Signs Temp 98.4 F 06/03/20 04:00 Pulse 72 06/03/20 08:35 Resp 22 06/03/20 04:00 BP 150/70 06/03/20 04:00 Pulse Ox 94 L 06/03/20 04:00 Intake & Output 06/02/20 06/03/20 06/03/20 18:59 06:59 18:59 Intake Total 420 Output Total 1200 850 Balance -1200 -430 Weight 117 kg Intake: Oral 420 Output: Urine 1200 850 Other: Voiding Method Indwelling Catheter Indwelling Catheter - Labs CBC & Chem 7: 06/03/20 08:10 06/03/20 08:10 Labs: Abnormal Lab Results - Last 24 Hours (Table) 06/02/20 06/02/20 06/02/20 Range/Units 07:05 11:41 16:58 RBC (4.30-5.90) m/uL Hgb (13.0-17.5) gm/dL Hct (39.0-53.0) % Plt Count (150-450) k/uL Lymphocytes # (1.0-4.8) k/uL Sodium (137-145) mmol/L BUN (9-20) mg/dL Creatinine (0.66-1.25) mg/dL Glucose (74-99) mg/dL POC Glucose (mg/dL) 129 H 118 H (75-99) mg/dL Calcium (8.4-10.2) mg/dL Iron 14 L (65-175) ug/dL % Saturation 5.47 L (15.00-50.00) Ferritin 483.7 H (22.0-322.0) ng/mL Total Protein (6.3-8.2) g/dL Albumin (3.5-5.0) g/dL 06/02/20 06/03/20 06/03/20 Range/Units 20:26 06:14 08:10 RBC 2.45 L (4.30-5.90) m/uL Hgb 7.3 L (13.0-17.5) gm/dL Hct 21.7 L (39.0-53.0) % Plt Count 96 L (150-450) k/uL Lymphocytes # 0.3 L (1.0-4.8) k/uL Sodium (137-145) mmol/L BUN (9-20) mg/dL Creatinine (0.66-1.25) mg/dL Glucose (74-99) mg/dL POC Glucose (mg/dL) 127 H 124 H (75-99) mg/dL Calcium (8.4-10.2) mg/dL Iron (65-175) ug/dL % Saturation (15.00-50.00) Ferritin (22.0-322.0) ng/mL Total Protein (6.3-8.2) g/dL Albumin (3.5-5.0) g/dL 06/03/20 Range/Units 08:10 RBC (4.30-5.90) m/uL Hgb (13.0-17.5) gm/dL Hct (39.0-53.0) % Plt Count (150-450) k/uL Lymphocytes # (1.0-4.8) k/uL Sodium 135 L (137-145) mmol/L BUN 94 H (9-20) mg/dL Creatinine 2.30 H (0.66-1.25) mg/dL Glucose 110 H (74-99) mg/dL POC Glucose (mg/dL) (75-99) mg/dL Calcium 7.9 L (8.4-10.2) mg/dL Iron (65-175) ug/dL % Saturation (15.00-50.00) Ferritin (22.0-322.0) ng/mL Total Protein 4.8 L (6.3-8.2) g/dL Albumin 2.7 L (3.5-5.0) g/dL Assessment and Plan Plan: Assessment: 1. Acute kidney injury mostly prerenal from poor intake, losartan and diuresis. Renal function stable. 2. 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 Serologies negative in the past. 3. Hyperkalemia secondary to acute kidney injury, losartan RTA type IV. Cortisol level not low. Stable. 4. Hyponatremia secondary to chronic kidney disease. Slightly hypervolemic. Recent TSH normal. Urine sodium 30 and urine osmolality 417. [facility]. Better. 5. Acute on chronic diastolic CHF. 6. Anemia of chronic kidney disease. Iron deficiency noted. Plan: 1200 mL fluid restriction. Encouraged oral intake. Maintain Demadex. Hold hydralazine for systolic blood pressure less than 125. IV iron 3 doses. First dose today.
--- NOTE | 2020-06-03 11:39 | XR ---
EXAMINATION TYPE: XR chest 1V portable DATE OF EXAM: 06/03/2020 COMPARISON: 06/02/2020 INDICATION: CHF TECHNIQUE: Single frontal view of the chest is obtained. FINDINGS: The heart size is moderately prominent. The pulmonary vasculature is prominent. There is elevation of the left diaphragm. Mild subsegmental atelectasis may be at the left base. IMPRESSION: 1. Cardiomegaly with prominent pulmonary vascular markings.
--- NOTE | 2020-06-03 11:48 | P.PN ---
Subjective Progress Note Date: 06/03/20 Principal diagnosis: Lower extremity pain, neuropathy, shortness of breath, encephalopathy 70-year-old white male patient who was familiar to our service from his previous admissions to the hospital for complications related to his underlying congestive heart failure, previous episodes of pneumonia. Patient has multiple medical problems including diabetes mellitus with peripheral neuropathy, obstructive sleep apnea syndrome, hypertension, osteoarthritis, GERD/reflux, prior history of CVA, coronary artery disease with prior stent placement, chronic kidney disease. Patient was recently in the hospital, from 2020 through 05/21/2020 for acute exacerbation of CHF and possibility of bilateral healthcare acquired pneumonia. Patient was discharged home in a stable co ndition with a guarded prognosis. Patient was treated with cefepime and vancomycin and sent home on Augmentin, he is on maintenance dose of oral Lasix 40 mg twice a day, he is on oral anticoagulation for history of paroxysmal atrial fibrillation, and he is on nebulized bronchodilators. He denied any worsened dyspnea, he states the reason he is here today is for evaluation of his neuropathy and his sore feet. His chest x-ray in emergency department showed elevation of the left hemidiaphragm, moderate vascular congestion, small bilateral pleural effusions, changes consistent with acute exacerbation of CHF. He was tested for COVID 19 and was found to be negative. He is in sinus mechanism on the monitor, he denied any chest pain, no fever or chills, no wheezing or increased phlegm production, however he does have a congestive nonproductive cough, today's labs have been reviewed showing white blood cell count of 9.5, hemoglobin is 9.8, d-dimer 0.65, sodium is 129, potassium is 5.6, chloride is 94, B1 is 68 creatinine is 3.9, lactic acid is 0.9, LFTs are within normal limits, troponin is negative 2 at less than 0.012, proBNP was elevated at 6960. His had no fever or chills, he is sitting up on the edge of the bed, awaiting a bed on selective care unit, is being followed by cardiology. He was already initiated on IV Lasix per cardiology. On 05/27/2020 patient seen in follow-up on selective care unit, he is sitting up in a chair, in no acute distress, a bit drowsy, but easily arousable, he was oriented to person, place and time. Apparently last night he was more confused, restless and did receive some Ativan. he seems better this morning. Answering questions appropriately, denies any worsening dyspnea, he is currently on 3 L of oxygen pulse ox is 93%, his lung sounds are sounding better on today's exam, minimal wheezing, she continues on diuretics, he is in -1.1 L fluid balance over the last 24 hours. Follow-up chest x-ray shows bibasilar infiltrates with eleva ricardo left hemidiaphragm, and cardiomegaly with central interstitial venous congestion. Today's labs have been reviewed, creatinine is 3.75, slight improvement from yesterday. On 06/03/2020 patient seen in follow-up on selective care unit, he is currently on 15 L of oxygen, pulse ox 95%, he did wear BiPAP and appears that he wore BiPAP most of the night and most of the day yesterday, with O2 saturations of 94%, and FiO2 of 60%, yesterday's chest x-ray has been reviewed showing cardiomegaly, mild vascular prominence, and left lower lobe infiltrate and/or pleural effusion. It was improving from admission chest x-ray. Today's chest x-ray has been reviewed, showing prominent pulmonary vasculature, elevation of the left diaphragm previously noted on his previous chest x-rays, and mild subsegmental atelectasis. Patient has a loose congested nonproductive cough, lung sounds are positive for scattered rhonchi, and he needs encouragement to cough and clear his secretions, no wheezing, no significant crackles, his lower extremity edema has improved from admission, today's weight is down 117 kg up from 128 kg, not sure this is accurate, but overall his fluid volume status has significantly improved from admission. Yesterday he received a dose of IV Lasix from nephrology, he is in -1.2 L fluid balance over the last 24 hours, he has indwelling catheter. Had no fever or chills, blood cultures have shown no growth Objective - Vital Signs Vital signs: Vital Signs Temp 97.7 F 06/03/20 08:10 Pulse 76 06/03/20 11:28 Resp 18 06/03/20 08:10 BP 162/72 06/03/20 08:10 Pulse Ox 94 L 06/03/20 08:10 Intake & Output 06/02/20 06/03/20 06/03/20 18:59 06:59 18:59 Intake Total 420 Output Total 1200 850 Balance -1200 -430 Weight 117 kg Intake: Oral 420 Output: Urine 1200 850 Other: Voiding Method Indwelling Catheter Indwelling Catheter Indwelling Catheter - Exam GENERAL EXAM: Alert, very pleasant, 70-year-old white male on 15 L of oxygen a pulse ox of 95% comfortable in no apparent distress. HEAD: Normocephalic/atraumatic. EYES: Normal reaction of pupils, equal size. Conjunctiva pink, sclera white. NOSE: Clear with pink turbinates. THROAT: No erythema or exudates. NECK: No masses, no JVD, no thyroid enlargement, no adenopathy. CHEST: No chest wall deformity. Symmetrical expansion. LUNGS: Equal air entry with no crackles, wheeze, rhonchi or dullness. CVS: Regular rate and rhythm, normal S1 and S2, no gallops, no murmurs, no rubs ABDOMEN: Soft, nontender. No hepatosplenomegaly, normal bowel sounds, no gua rding or rigidity. EXTREMITIES: No clubbing, no lower extremity edema, no cyanosis, 2+ pulses and upper and lower extremities. MUSCULOSKELETAL: Muscle strength and tone normal. SPINE: No scoliosis or deformity SKIN: No rashes CENTRAL NERVOUS SYSTEM: Alert and oriented -3. No focal deficits, tone is normal in all 4 extremities. PSYCHIATRIC: Alert and oriented -3. Appropriate affect. Intact judgment and insight. - Labs CBC & Chem 7: 06/03/20 08:10 06/03/20 08:10 Labs: Abnormal Lab Results - Last 24 Hours (Table) 06/02/20 06/02/20 06/02/20 Range/Units 07:05 11:41 16:58 RBC (4.30-5.90) m/uL Hgb (13.0-17.5) gm/dL Hct (39.0-53.0) % Plt Count (150-450) k/uL Lymphocytes # (1.0-4.8) k/uL Sodium (137-145) mmol/L BUN (9-20) mg/dL Creatinine (0.66-1.25) mg/dL Glucose (74-99) mg/dL POC Glucose (mg/dL) 129 H 118 H (75-99) mg/dL Calcium (8.4-10.2) mg/dL Iron 14 L (65-175) ug/dL % Saturation 5.47 L (15.00-50.00) Ferritin 483.7 H (22.0-322.0) ng/mL Total Protein (6.3-8.2) g/dL Albumin (3.5-5.0) g/dL 06/02/20 06/03/20 06/03/20 Range/Units 20:26 06:14 08:10 RBC 2.45 L (4.30-5.90) m/uL Hgb 7.3 L (13.0-17.5) gm/dL Hct 21.7 L (39.0-53.0) % Plt Count 96 L (150-450) k/uL Lymphocytes # 0.3 L (1.0-4.8) k/uL Sodium (137-145) mmol/L BUN (9-20) mg/dL Creatinine (0.66-1.25) mg/dL Glucose (74-99) mg/dL POC Glucose (mg/dL) 127 H 124 H (75-99) mg/dL Calcium (8.4-10.2) mg/dL Iron (65-175) ug/dL % Saturation (15.00-50.00) Ferritin (22.0-322.0) ng/mL Total Protein (6.3-8.2) g/dL Albumin (3.5-5.0) g/dL 06/03/20 Range/Units 08:10 RBC (4.30-5.90) m/uL Hgb (13.0-17.5) gm/dL Hct (39.0-53.0) % Plt Count (150-450) k/uL Lymphocytes # (1.0-4.8) k/uL Sodium 135 L (137-145) mmol/L BUN 94 H (9-20) mg/dL Creatinine 2.30 H (0.66-1.25) mg/dL Glucose 110 H (74-99) mg/dL POC Glucose (mg/dL) (75-99) mg/dL Calcium 7.9 L (8.4-10.2) mg/dL Iron (65-175) ug/dL % Saturation (15.00-50.00) Ferritin (22.0-322.0) ng/mL Total Protein 4.8 L (6.3-8.2) g/dL Albumin 2.7 L (3.5-5.0) g/dL Assessment and Plan Plan: Assessment: #1. Acute exacerbation of diastolic CHF, COVID 19 negative #2. Acute hypoxic respiratory failure related to acute exacerbation of diastolic CHF #3. Dyspnea, and acute hypoxia, related to the above #4. Recent history of hospitalization for acute exacerbation of diastolic CHF and possibility of healthcare acquired pneumonia, patient was discharged home in stable condition but guarded prognosis on 05/21/2020 #5. Diabetes mellitus type II, and patient has complained of sore feet possibly related to underlying diabetic neuropathy #6. Coronary artery disease with previous stenting #7. Hypertension #8. hyperlipidemia #9. Chronic kidney disease #10. History of aortic stenosis #11. Possibility of underlying COPD in view of patient's history of smoking #12. History of osteoarthritis #13. History of CVA #14. History of obstructive sleep apnea syndrome Plan: Continue weaning FiO2, maintaining O2 sat between 88-92%, we cut back his oxygen to 10 L, he is maintaining his sats of around 93%, may use BiPAP as needed, how ever patient needs aggressive pulmonary toileting, we will add flutter valve, today's chest x-ray has been reviewed, patient is in negative fluid balance, we'll give the patient additional dose of Lasix 1 today a 40 mg, clinically his fluid volume status has significantly improved. We'll continue with breathing treatments, maintain aspiration precautions, encouraged patient to sit up in the chair deep breathe and cough. Once his oxygen requirement are down to less than 5 L she may be considered for transfer to [facility], he may benefit from subacute rehab placement I performed a history & physical examination of the patient and discussed their management with my nurse practitioner, Gladys Rodriguez. I reviewed the nurse practitioner's note and agree with the documented findings and plan of care. Lung sounds are positive for congestive cough, mild wheezing. The findings and the impression was discussed with the patient. I attest to the documentation by the nurse practitioner. Time with Patient: Less than 30
--- NOTE | 2020-06-03 11:51 | P.PN ---
Subjective Progress Note Date: 06/03/20 CHIEF COMPLAINT: Abdominal pain HISTORY OF PRESENT ILLNESS: Surgical service is following in regards to p atient's ileus. Patient did have a small smear of a BM with gas. Patient is currently on BiPAP. He is on regular diet. Afebrile. WBC 5.2 Hgb 7.3 creatinine 2.30 PHYSICAL EXAM: VITAL SIGNS: Reviewed. GENERAL: Well-developed in no acute distress. HEENT: No sclera icterus. Extraocular movements grossly intact. Moist buccal mucosa. Head is atraumatic, normocephalic. ABDOMEN: Soft. Obese. Nondistended. Nontender. NEUROLOGIC: Alert and oriented. Cranial nerves II through XII grossly intact. ASSESSMENT: 1. Ileus resolving PLAN: -Continue supportive care -No surgical intervention planned Physician Customer Trainer note has been reviewed by physician. Signing provider agrees with the documented findings, assessment, and plan of care. Objective - Vital Signs Vital signs: Vital Signs Temp 97.7 F 06/03/20 08:10 Pulse 76 06/03/20 11:28 Resp 18 06/03/20 08:10 BP 162/72 06/03/20 08:10 Pulse Ox 94 L 06/03/20 08:10 Intake & Output 06/02/20 06/03/20 06/03/20 18:59 06:59 18:59 Intake Total 420 Output Total 1200 850 Balance -1200 -430 Weight 117 kg Intake: Oral 420 Output: Urine 1200 850 Other: Voiding Method Indwelling Catheter Indwelling Catheter Indwelling Catheter - Labs CBC & Chem 7: 06/03/20 08:10 06/03/20 08:10 Labs: Abnormal Lab Results - Last 24 Hours (Table) 06/02/20 06/02/20 06/02/20 Range/Units 07:05 11:41 16:58 RBC (4.30-5.90) m/uL Hgb (13.0-17.5) gm/dL Hct (39.0-53.0) % Plt Count (150-450) k/uL Lymphocytes # (1.0-4.8) k/uL Sodium (137-145) mmol/L BUN (9-20) mg/dL Creatinine (0.66-1.25) mg/dL Glucose (74-99) mg/dL POC Glucose (mg/dL) 129 H 118 H (75-99) mg/dL Calcium (8.4-10.2) mg/dL Iron 14 L (65-175) ug/dL % Saturation 5.47 L (15.00-50.00) Ferritin 483.7 H (22.0-322.0) ng/mL Total Protein (6.3-8.2) g/dL Albumin (3.5-5.0) g/dL 06/02/20 06/03/20 06/03/20 Range/Units 20:26 06:14 08:10 RBC 2.45 L (4.30-5.90) m/uL Hgb 7.3 L (13.0-17.5) gm/dL Hct 21.7 L (39.0-53.0) % Plt Count 96 L (150-450) k/uL Lymphocytes # 0.3 L (1.0-4.8) k/uL Sodium (137-145) mmol/L BUN (9-20) mg/dL Creatinine (0.66-1.25) mg/dL Glucose (74-99) mg/dL POC Glucose (mg/dL) 127 H 124 H (75-99) mg/dL Calcium (8.4-10.2) mg/dL Iron (65-175) ug/dL % Saturation (15.00-50.00) Ferritin (22.0-322.0) ng/mL Total Protein (6.3-8.2) g/dL Albumin (3.5-5.0) g/dL 06/03/20 Range/Units 08:10 RBC (4.30-5.90) m/uL Hgb (13.0-17.5) gm/dL Hct (39.0-53.0) % Plt Count (150-450) k/uL Lymphocytes # (1.0-4.8) k/uL Sodium 135 L (137-145) mmol/L BUN 94 H (9-20) mg/dL Creatinine 2.30 H (0.66-1.25) mg/dL Glucose 110 H (74-99) mg/dL POC Glucose (mg/dL) (75-99) mg/dL Calcium 7.9 L (8.4-10.2) mg/dL Iron (65-175) ug/dL % Saturation (15.00-50.00) Ferritin (22.0-322.0) ng/mL Total Protein 4.8 L (6.3-8.2) g/dL Albumin 2.7 L (3.5-5.0) g/dL
[2020-06-03 11:57] LABS: Glucose,Whole Blood 218 mg/dL (75-99)
[2020-06-03] MEDS ORDERED: SODIUM FERRIC GLUCONAT-SUCROSE 125 MG in SODIUM CHLORIDE 0.9% 100 ML IVPB SCH (12:00)
--- NOTE | 2020-06-03 13:55 | P.PN ---
Subjective Progress Note Date: 06/03/20 HISTORY OF PRESENT ILLNESS: 05/26/2020 This is a 70-year-old male with a past medical history significant for coronary artery disease with PCI to proximal mid and distal RCA in 2018, hypertension, hyperlipidemia, paroxysmal atrial fibrillation, diabetes mellitus, TIA, chronic kidney disease, COPD, aortic stenosis, and former nicotine dependence. Patient follows in the office with Dr. Eng. We have been asked to see the patient in consultation for CHF. Patient examined at the bedside in the emergency room. Patient is alert and oriented 3 when asked, however he appears somewhat confused and is unable to give a thorough history of why he came to the emergency room. There is no family present at the time of examination. He continues to repeat that he had a tooth pulled yesterday. He denies chest pain or pressure. He reports mild shortness of breath. Denies dizziness or lightheadedness. EKG reveals sinus bradycardia with no signs of acute ischemia Chest xray moderate vascular congestion. Small bilateral pleural effusions. Severe cardiomegaly Laboratory data: WBC 9.1. Hemoglobin 9.5. Platelet count 119. D-dimer 0.65. Sodium 132. Potassium 5.6. BUN 68. Creatinine 3.94. Troponin negative 2. BNP 6960. Current home cardiac medications include hydralazine 50 g 3 times a day, amlodipine 10 mg daily, losartan 25 mg daily, Lasix 40 mg twice a day, Coreg 25 mg twice a day, Lipitor 40 mg daily, aspirin 81 mg daily, and Eliquis 2.5 mg twice a day Most recent echocardiogram obtained in April 2020 reveals ejection fraction 55-60%, mild aortic stenosis, mild mitral regurgitation, mild tricuspid regurgitation Cardiac catheterization history: November [address] Eng with successful stenting of distal RCA, mid RCA, and proximal RCA 05/31/2020 Patient examined this morning at the bedside. Patient is confused. He is wearing a BiPAP however he does not want to keep it on and continues to pull it off this morning. Oxygen saturations greater than 90% when patient is wearing BiPAP. Creatinine 2.75, down from 2.80. Fluid balance over the last 24 hours is +550 mL. Nephrology is following. 06/01/2020 Patient examined this morning at the bedside. Patient is much more awake and cooperative today. He is on a nasal cannula with oxygen saturations greater than 92%. He denies chest pain or pressure. He reports mild shortness of breath. Sodium 128. Potassium 5.5. BUN 79. Creatinine 2.36. Chest x-ray from yesterday revealed improved left midlung linear atelectasis. Background cardiomegaly and elevated left hemidiaphragm with bibasilar opacities favoring atelectasis and/or scarring redemonstrated. 06/02/2020 Patient examined this morning at the bedside. Patient is on BiPAP with 60% FiO2. Patient reports feeling mildly short of breath. Demadex was added yesterday per nephrology. Creatinine 2.34 today. Fluid balance over the last 24 hours is -1590 mL. 06/03/2020 Patient examined this morning at the bedside. Patient has been transitioned to nasal cannula from BiPAP. He states his shortness of breath is improving. He denies chest pain or pressure. he is due to receive a dose of IV Lasix per pulmonary. Chest x-ray reveals cardiomegaly with prominent pulmonary vascular markings. Hemoglobin 7.3. BUN 94. Creatinine 2.30. PHYSICAL EXAM: VITAL SIGNS: Reviewed. GENERAL: Well-developed in no acute distress. HEENT: Head is normocephalic. Pupils are equal, round. Sclerae anicteric. Mucous membranes of the mouth are moist. Neck supple. No JVD or thyromegaly LUNGS: Respirations even and unlabored. Lungs diminished. HEART: Regular rate and rhythm. S1 and S2 heard. Systolic murmur noted. ABDOMEN: Soft. Nondistended. Nontender. EXTREMITIES: Normal range of motion. No clubbing or cyanosis. Peripheral pulses intact. Trace bilateral lower extremity edema NEUROLOGIC: Awake and alert. Oriented x 3. ASSESSMENT: Acute exacerbation of chronic diastolic heart failure, EF 55-60% Small bilateral pleural effusions, per x-ray on admission Coronary artery disease with previous PCI to the RCA x 32017 Mild aortic stenosis Paroxysmal atrial fibrillation, on anticoagulation with Eliquis Acute on chronic kidney disease Peripheral vascular disease with previous left carotid endarterectomy Hypertension Hyperlipidemia COPD PLAN: Continue current cardiac medications Continue Eliquis for anticoagulation Continue telemetry monitoring Nephrology following Diuresis management per nephrology. Daily weights Accurate I&O's Monitor kidney function We will follow on an as-needed basis. Please call with questions or concerns. Nurse practitioner note has been reviewed by physician. Signing provider agrees with the documented findings, assessment, and plan of care. Objective - Vital Signs Vital signs: Vital Signs Temp 97.7 F 06/03/20 08:10 Pulse 76 06/03/20 11:28 Resp 18 06/03/20 08:10 BP 162/72 06/03/20 08:10 Pulse Ox 94 L 06/03/20 08:10 Intake & Output 06/02/20 06/03/20 06/03/20 18:59 06:59 18:59 Intake Total 420 Output Total 1200 1200 Balance -1200 -780 Weight 117 kg Intake: Oral 420 Output: Urine 1200 1200 Other: Voiding Method Indwelling Catheter Indwelling Catheter Indwelling Catheter - Labs CBC & Chem 7: 06/03/20 08:10 06/03/20 08:10 Labs: Abnormal Lab Results - Last 24 Hours (Table) 06/02/20 06/02/20 06/02/20 Range/Units 07:05 16:58 20:26 RBC (4.30-5.90) m/uL Hgb (13.0-17.5) gm/dL Hct (39.0-53.0) % Plt Count (150-450) k/uL Lymphocytes # (1.0-4.8) k/uL Sodium (137-145) mmol/L BUN (9-20) mg/dL Creatinine (0.66-1.25) mg/dL Glucose (74-99) mg/dL POC Glucose (mg/dL) 118 H 127 H (75-99) mg/dL Calcium (8.4-10.2) mg/dL Iron 14 L (65-175) ug/dL % Saturation 5.47 L (15.00-50.00) Ferritin 483.7 H (22.0-322.0) ng/mL Total Protein (6.3-8.2) g/dL Albumin (3.5-5.0) g/dL 06/03/20 06/03/20 06/03/20 Range/Units 06:14 08:10 08:10 RBC 2.45 L (4.30-5.90) m/uL Hgb 7.3 L (13.0-17.5) gm/dL Hct 21.7 L (39.0-53.0) % Plt Count 96 L (150-450) k/uL Lymphocytes # 0.3 L (1.0-4.8) k/uL Sodium 135 L (137-145) mmol/L BUN 94 H (9-20) mg/dL Creatinine 2.30 H (0.66-1.25) mg/dL Glucose 110 H (74-99) mg/dL POC Glucose (mg/dL) 124 H (75-99) mg/dL Calcium 7.9 L (8.4-10.2) mg/dL Iron (65-175) ug/dL % Saturation (15.00-50.00) Ferritin (22.0-322.0) ng/mL Total Protein 4.8 L (6.3-8.2) g/dL Albumin 2.7 L (3.5-5.0) g/dL 06/03/20 Range/Units 11:50 RBC (4.30-5.90) m/uL Hgb (13.0-17.5) gm/dL Hct (39.0-53.0) % Plt Count (150-450) k/uL Lymphocytes # (1.0-4.8) k/uL Sodium (137-145) mmol/L BUN (9-20) mg/dL Creatinine (0.66-1.25) mg/dL Glucose (74-99) mg/dL POC Glucose (mg/dL) 218 H (75-99) mg/dL Calcium (8.4-10.2) mg/dL Iron (65-175) ug/dL % Saturation (15.00-50.00) Ferritin (22.0-322.0) ng/mL Total Protein (6.3-8.2) g/dL Albumin (3.5-5.0) g/dL
--- NOTE | 2020-06-03 14:43 | P.PN ---
Subjective Progress Note Date: 06/03/20 70-year-old male was admitted for generalized weakness and he discharged from the hospital after he was treated for healthcare associated pneumonia and chronic diastolic dysfunction. Patient is being treated for the same during this hospital physician patient is presently not on any antibiotics chest x-ray was consistent with interstitial prominence because of which patient is being treated with Lasix IV. Patient to creatinine continued to get worse serum sodium as well as a potassium continue to get worse potassium was elevated at 5.7 nephrology was subsequently consulted nephrology evaluated the patient. He. Patient clinically doesn't doesn't appear to be in CHF chest x-ray is not typical for CHF either because of which we're discontinuing the IV Lasix. Patient was tested for Covid 19 twice and was negative. 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 Because of the toxic encephalopathy patient also has myoclonic jerks. Patient creatinine is 3.3 and patient is also on 600 mg 3 times a day of Neurontin which is being discontinued now when his encephalopathy resolves it he can be started on a lower dose that is 100 mg by mouth because of his poor renal function patient is also on tramadol which is being discontinued. Patient apparently had seizures in the past because of which patient is on Keppra because of this reason he will not be a candidate for continuation of tramadol. Tramadol can also cause myoclonic jerks. Patient was completely confused a year in the day bit better. Patient also received Ativan which will be discontinued and will use Seroquel for agitation if needed at nighttime. Patient is more awake alert oriented 2-3 when I evaluated the patient and able to provide answers be less encephalopathic when I evaluated the patient. 05/28/2020 Patient the has significant clinical improvement today patient is alert oriented almost 3 today. Patient denied any fever chills. Patient creatinine did improve a bit. Patient is much less encephalopathic. But had an episode of confusion last night. 05/29/2020 Patient is sitting in the chair patient is alert oriented 3 when more alert compared to yesterday. Although patient is complaining of back pain which is chronic patient has chronic abdominal pain as well as neuropathic pain. will be given [place] unfortunately I cannot use tramadol or nonsteroidal anti- inflammatory medications. Patient will be started on a low-dose of Lyrica for neuropathic pain. Patient's creatinine improved to 2.99 today. 05/30/2020 Patient circumflex creatinine continue to improve. Patient is getting IV iron. He is still having neuropathic pain. His pain although overall did improve. Patient had an abdominal x-ray showing ileus most probably gastroenteritis rather than ileus patient is having diarrhea general surgery will evaluate the patient. 05/31/20 He is confused and lethargic this morning, pulling on his O2 line and hypoxic. His renal function is returning to baseline. Pt is passing gas and has had a BM. 06/01/2020 confused during the night pulling off BiPAP, required Haldol. Pleasantly confused this morning, conversing, answering questions.. Creatinine at baseline. Weak nonproductive cough. Consumed 100% of breakfast and 0% at lunch. Positive bowel movement. Continues on fluid restrictions, Sodium 128, potassium 5.5, creatinine down to 2.36. Hypertensive, receiving hydralazine. 06/02/2020 maintained on BiPAP, tolerating better this morning. Required Haldol during the night. Received a dose of [place] yesterday.Maintained on fluid restrictions, Demadex with continued improvement. Sodium up to 1:30, creatinine 2.34, K5.7. Blood pressure controlled. 06/03/2020 yesterday afternoon patient developed a cough with significant amount of mucous production requiring suctioning secondary to his weak cough. As the afternoon progressed, patient denies headache on 15 L down to 71% and converted over to BiPAP. Breasts on BiPAP for the rest of the evening. Did not require Haldol. This morning patient much more alert. Discussed CODE STATUS and patient wishes to be a no code, no CPR, no intubation. CODE STATUS will be changed to no code and PCP will also discuss with significant other. T-max 99.5, WBC 5.2. Hemoglobin 7.3, no bleeding reported. Received Lasix IV push yesterday and again today with 24-hour I&O reflecting a negative fluid balance. Objective - Vital Signs Vital signs: Vital Signs Temp 98.4 F 06/03/20 04:00 Pulse 72 06/03/20 08:35 Resp 22 06/03/20 04:00 BP 150/70 06/03/20 04:00 Pulse Ox 94 L 06/03/20 04:00 Intake & Output 06/02/20 06/03/20 06/03/20 18:59 06:59 18:59 Output Total 1200 Balance -1200 Weight 117 kg Output: Urine 1200 Other: Voiding Method Indwelling Catheter Indwelling Catheter - Exam - Exam General: Sitting up in bed, alert and oriented 3, no acute distress Lungs: normal respiratory effort, no wheezes or rales. Diffuse rhonchi CV: Regular rate and rhythm, systolic murmur. No edema, Peripheral pulses 2+ Abdomen: soft, distended, diffuse tenderness, positive bowel sounds Neuro: weak, no focal deficits Skin: warm and dry. - Labs CBC & Chem 7: 06/03/20 08:10 06/03/20 08:10 Labs: Abnormal Lab Results - Last 24 Hours (Table) 06/02/20 06/02/20 06/02/20 Range/Units 07:05 07:05 11:41 RBC (4.30-5.90) m/uL Hgb (13.0-17.5) gm/dL Hct (39.0-53.0) % Plt Count 97 L (150-450) k/uL Lymphocytes # 0.2 L (1.0-4.8) k/uL Sodium (137-145) mmol/L BUN (9-20) mg/dL Creatinine (0.66-1.25) mg/dL Glucose (74-99) mg/dL POC Glucose (mg/dL) 129 H (75-99) mg/dL Calcium (8.4-10.2) mg/dL Iron 14 L (65-175) ug/dL % Saturation 5.47 L (15.00-50.00) Ferritin 483.7 H (22.0-322.0) ng/mL Total Protein (6.3-8.2) g/dL Albumin (3.5-5.0) g/dL 06/02/20 06/02/20 06/03/20 Range/Units 16:58 20:26 06:14 RBC (4.30-5.90) m/uL Hgb (13.0-17.5) gm/dL Hct (39.0-53.0) % Plt Count (150-450) k/uL Lymphocytes # (1.0-4.8) k/uL Sodium (137-145) mmol/L BUN (9-20) mg/dL Creatinine (0.66-1.25) mg/dL Glucose (74-99) mg/dL POC Glucose (mg/dL) 118 H 127 H 124 H (75-99) mg/dL Calcium (8.4-10.2) mg/dL Iron (65-175) ug/dL % Saturation (15.00-50.00) Ferritin (22.0-322.0) ng/mL Total Protein (6.3-8.2) g/dL Albumin (3.5-5.0) g/dL 06/03/20 06/03/20 Range/Units 08:10 08:10 RBC 2.45 L (4.30-5.90) m/uL Hgb 7.3 L (13.0-17.5) gm/dL Hct 21.7 L (39.0-53.0) % Plt Count 96 L (150-450) k/uL Lymphocytes # 0.3 L (1.0-4.8) k/uL Sodium 135 L (137-145) mmol/L BUN 94 H (9-20) mg/dL Creatinine 2.30 H (0.66-1.25) mg/dL Glucose 110 H (74-99) mg/dL POC Glucose (mg/dL) (75-99) mg/dL Calcium 7.9 L (8.4-10.2) mg/dL Iron (65-175) ug/dL % Saturation (15.00-50.00) Ferritin (22.0-322.0) ng/mL Total Protein 4.8 L (6.3-8.2) g/dL Albumin 2.7 L (3.5-5.0) g/dL Assessment and Plan Assessment: (1) Acute renal failure, prerenal secondary to diuresing, medication induced, with losartan discontinued, oral intake, improving, at baseline. Current Visit: Yes Status: Acute Code(s): N17.9 - ACUTE KIDNEY FAILURE, UNSPECIFIED SNOMED Code(s): 91404714 (2) chronic kidney disease, stage IV secondary to diabetic kidney disease with baseline 2.5. (3) hyperkalemia secondary to acute renal failure (4) hyponatremia, hypervolemic, secondary to see daily (5) CHF (congestive heart failure), acute on chronic diastolic dysfunction Current Visit: Yes Status: Acute Code(s): I50.9 - HEART FAILURE, UNSPECIFIED SNOMED Code(s): 18096042 (6) COPD (chronic obstructive pulmonary disease) Current Visit: Yes Status: Acute Code(s): J44.9 - CHRONIC OBSTRUCTIVE PULMONARY DISEASE, UNSPECIFIED SNOMED Code(s): 06661719 (7) Tetrahydrocannabinol (THC) use disorder, mild, abuse Current Visit: No Status: Acute Code(s): F12.10 - CANNABIS ABUSE, UNCOMPLICATED SNOMED Code(s): 84637576 (8) CAD with history of stents (9) chronic paroxysmal atrial fibrillation, anticoagulated with Eliquis (10) hypertension (11) hyperlipidemia (12) myoclonic jerks suspect related to metabolic dysfunction, improved (13) obstructive sleep apnea (14) no code, no CPR, no intubation Plan: Continue current medication regime ,monitoring and symptomatic treatment. Maintain nebulized bronchodilators, diuretics .Further oxygen weaning in progress with parameters of maintaining O2 sats between 88 and 92% as per pulmonary. Flutter valve ordered. CODE STATUS has been changed to no code as per patient's request -PCP will discuss/inform significant other. Maintain fluid restrictions, Demadex as per nephrology . Close monitoring of renal function, electrolytes with repeat labs ordered for a.m. patient to be reevaluated by PT, appears weaker secondary to prolonged stay. The impression and plan of care has been dictated as directed. : I performed a history and examination of this patient, discussed the same with the dictator. I agree with the dictator's note ,documented as a scribe. Any additional findings or plans will be noted.
[2020-06-03 16:43] LABS: Glucose,Whole Blood 89 mg/dL (75-99)
[2020-06-03 20:08] LABS: Glucose,Whole Blood 139 mg/dL (75-99)
[2020-06-03] MEDS: ACETAMINOPHEN TAB 325 MG TAB PO PRN (23:34)
[2020-06-04 06:08] LABS: Glucose,Whole Blood 113 mg/dL (75-99)
[2020-06-04] MEDS: INSULIN ASPART (NovoLOG) 100 UNIT/ML VIAL SQ SCH (06:12)
[2020-06-04] MEDS: carvediloL 12.5 MG TAB PO SCH (06:27)
[2020-06-04] MEDS: IPRATROPIUM-ALBUTEROL 3 ML NEB INHALATION SCH ×2 (07:56→11:32)
[2020-06-04 08:10] LABS: Calcium 7.7 mg/dL (8.4-10.2); Magnesium 2.1 mg/dL (1.6-2.3); Potassium 4.8 mmol/L (3.5-5.1)
[2020-06-04 08:26] VITALS: BP 126/59; TEMP 99.6
[2020-06-04] MEDS: TORSEMIDE 20 MG TAB PO SCH (08:27)
[2020-06-04] MEDS: PREGABALIN 50 MG CAP PO SCH (08:27)
[2020-06-04] MEDS: CITALOPRAM HYDROBROMIDE 20 MG TAB PO SCH (08:27)
[2020-06-04] MEDS: GLIMEPIRIDE 1 MG TAB PO SCH (08:28)
[2020-06-04] MEDS: TAMSULOSIN 0.4 MG CAP.ER.24H PO SCH (08:28)
[2020-06-04] MEDS: ASPIRIN 81 MG PO SCH (08:28)
[2020-06-04] MEDS: hydrALAZINE HCL 50 MG TAB PO SCH (08:28)
[2020-06-04] MEDS: FERROUS SULFATE 325 MG TAB PO SCH (08:28)
[2020-06-04] MEDS: GABAPENTIN 100 MG CAP PO SCH (08:28)
[2020-06-04] MEDS: CYANOCOBALAMIN 1,000 MCG/ML 1 ML VIAL IM SCH (08:28)
[2020-06-04] MEDS: APIXABAN 2.5 MG TABLET PO SCH (08:28)
[2020-06-04] MEDS: ATORVASTATIN 40 MG TAB PO SCH (08:28)
[2020-06-04] MEDS ORDERED: PIPERACILLIN-TAZOBACTAM 3.375 GM in SODIUM CHLORIDE 0.9% 100 ML IVPB SCH (10:30)
[2020-06-04 11:27] LABS: MCH 28.6 pg (25.0-35.0); MCHC 32.6 g/dL (31.0-37.0); MCV 87.6 fL (80.0-100.0); Mean Platelet Volume 9.9; Platelet Count 110 k/uL (150-450); RBC 2.23 m/uL (4.30-5.90); RDW 15.2 % (11.5-15.5); WBC 4.9 k/uL (3.8-10.6)
[2020-06-04 11:32] VITALS: RESP 20
[2020-06-04 11:39] LABS: Glucose,Whole Blood 133 mg/dL (75-99)
[2020-06-04 11:42] VITALS: PULSE 74
[2020-06-04 11:43] LABS: HCT 19.5 % (39.0-53.0); HGB 6.4 gm/dL (13.0-17.5)
--- NOTE | 2020-06-04 12:51 | P.PN ---
Subjective Progress Note Date: 06/04/20 CHIEF COMPLAINT: Abdominal pain HISTORY OF PRESENT ILLNESS: Surgical service is following in regards to p atient's ileus. Patient did have a bowel movement. He is currently on 10 L high flow nasal cannula sating at 95%. He is on regular diet. Afebrile. WBC 4.9 Hgb 6.4 platelets 110 creatinine 2.46 patient's iron level is low at 14 and he has been receiving IV iron PHYSICAL EXAM: VITAL SIGNS: Reviewed. GENERAL: Well-developed in no acute distress. HEENT: No sclera icterus. Extraocular movements grossly intact. Moist buccal mucosa. Head is atraumatic, normocephalic. ABDOMEN: Soft. Obese. Nondistended. Nontender. NEUROLOGIC: Alert and oriented. Cranial nerves II through XII grossly intact. ASSESSMENT: 1. Ileus resolving PLAN: -Continue supportive care -No surgical intervention planned Physician Stucco Worker note has been reviewed by physician. Signing provider agrees with the documented findings, assessment, and plan of care. Objective - Vital Signs Vital signs: Vital Signs Temp 99.6 F 06/04/20 08:21 Pulse 74 06/04/20 11:41 Resp 20 06/04/20 11:10 BP 126/59 06/04/20 08:21 Pulse Ox 95 06/04/20 11:10 Intake & Output 06/03/20 06/04/20 06/04/20 18:59 06:59 18:59 Intake Total 840 240 Output Total 1750 600 Balance -910 -360 Weight 120.5 kg Intake: Oral 840 240 Output: Urine 1750 600 Other: Voiding Method Indwelling Catheter Indwelling Catheter Indwelling Catheter - Labs CBC & Chem 7: 06/04/20 06:52 06/04/20 06:52 Labs: Abnormal Lab Results - Last 24 Hours (Table) 06/03/20 06/04/20 06/04/20 Range/Units 20:07 06:06 06:52 RBC (4.30-5.90) m/uL Hgb (13.0-17.5) gm/dL Hct (39.0-53.0) % Plt Count (150-450) k/uL Sodium 133 L (137-145) mmol/L BUN 115 H* (9-20) mg/dL Creatinine 2.46 H (0.66-1.25) mg/dL POC Glucose (mg/dL) 139 H 113 H (75-99) mg/dL Calcium 7.7 L (8.4-10.2) mg/dL 06/04/20 06/04/20 Range/Units 06:52 11:35 RBC 2.23 L (4.30-5.90) m/uL Hgb 6.4 L* (13.0-17.5) gm/dL Hct 19.5 L* (39.0-53.0) % Plt Count 110 L (150-450) k/uL Sodium (137-145) mmol/L BUN (9-20) mg/dL Creatinine (0.66-1.25) mg/dL POC Glucose (mg/dL) 133 H (75-99) mg/dL Calcium (8.4-10.2) mg/dL
--- NOTE | 2020-06-08 08:33 | P.DS ---
Providers Date of admission: 05/26/20 06:15 Expected date of discharge: 06/04/20 Attending physician: Dane Chowdary MD Consults: 05/26/20 06:12 Consult Physician Routine Consulting Provider: Arben Shah Consult Reason/Comments: hypoxia Do you want consulting provider notified?: Yes 05/26/20 09:07 Consult Physician Routine Consulting Provider: Waleska Bee Consult Reason/Comments: tremors, hx seizure d/o Do you want consulting provider notified?: Yes 05/26/20 10:17 Consult Physician Routine Consulting Provider: Lorenza Stovall Consult Reason/Comments: CKD Do you want consulting provider notified?: Yes 05/29/20 18:30 Consult Physician Routine Consulting Provider: Phill High Consult Reason/Comments: ileus Do you want consulting provider notified?: Yes Primary care physician: Dane Chowdary MD - Discharge Diagnosis(es) (1) Acute renal failure Status: Acute (2) CHF (congestive heart failure) Status: Acute (3) COPD (chronic obstructive pulmonary disease) Status: Acute (4) Tetrahydrocannabinol (THC) use disorder, mild, abuse Status: Acute Hospital Course: 70-year-old male was admitted for generalized weakness and he discharged from the hospital after he was treated for healthcare associated pneumonia and chronic diastolic dysfunction. Patient is being treated for the same during this hospital physician patient is presently not on any antibiotics chest x-ray was consistent with interstitial prominence because of which patient is being treated with Lasix IV. Patient to creatinine continued to get worse serum sodium as well as a potassium continue to get worse potassium was elevated at 5.7 nephrology was subsequently consulted nephrology evaluated the patient. He. Patient clinically doesn't doesn't appear to be in CHF chest x-ray is not typical for CHF either because of which we're discontinuing the IV Lasix. Patient was tested for Covid 19 twice and was negative. 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 Because of the toxic encephalopathy patient also has myoclonic jerks. Patient creatinine is 3.3 and patient is also on 600 mg 3 times a day of Neurontin which is being discontinued now when his encephalopathy resolves it he can be started on a lower dose that is 100 mg by mouth because of his poor renal function patient is also on tramadol which is being discontinued. Patient apparently had seizures in the past because of which patient is on Keppra because of this reason he will not be a candidate for continuation of tramadol. Tramadol can also cause myoclonic jerks. Patient was completely confused a year in the day bit better. Patient also received Ativan which will be discontinued and will use Seroquel for agitation if needed at nighttime. Patient is more awake alert oriented 2-3 when I evaluated the patient and able to provide answers be less encephalopathic when I evaluated the patient. 05/28/2020 Patient the has significant clinical improvement today patient is alert oriented almost 3 today. Patient denied any fever chills. Patient creatinine did improve a bit. Patient is much less encephalopathic. But had an episode of confusion last night. 05/29/2020 Patient is sitting in the chair patient is alert oriented 3 when more alert compared to yesterday. Although patient is complaining of back pain which is chronic patient has chronic abdominal pain as well as neuropathic pain. will be given [place] unfortunately I cannot use tramadol or nonsteroidal anti- inflammatory medications. Patient will be started on a low-dose of Lyrica for neuropathic pain. Patient's creatinine improved to 2.99 today. 05/30/2020 Patient circumflex creatinine continue to improve. Patient is getting IV iron. He is still having neuropathic pain. His pain although overall did improve. Patient had an abdominal x-ray showing ileus most probably gastroenteritis rather than ileus patient is having diarrhea general surgery will evaluate the patient. 05/31/20 He is confused and lethargic this morning, pulling on his O2 line and hypoxic. His renal function is returning to baseline. Pt is passing gas and has had a BM. 06/01/2020 confused during the night pulling off BiPAP, required Haldol. Pleasantly confused this morning, conversing, answering questions.. Creatinine at baseline. Weak nonproductive cough. Consumed 100% of breakfast and 0% at lunch. Positive bowel movement. Continues on fluid restrictions, Sodium 128, potassium 5.5, creatinine down to 2.36. Hypertensive, receiving hydralazine. 06/02/2020 maintained on BiPAP, tolerating better this morning. Required Haldol during the night. Received a dose of Sam[place]a yesterday.Maintained on fluid restrictions, Demadex with continued improvement. Sodium up to 1:30, creatinine 2.34, K5.7. Blood pressure controlled. 06/03/2020 yesterday afternoon patient developed a cough with significant amount of mucous production requiring suctioning secondary to his weak cough. As the afternoon progressed, patient denies headache on 15 L down to 71% and converted over to BiPAP. Breasts on BiPAP for the rest of the evening. Did not require Haldol. This morning patient much more alert. Discussed CODE STATUS and patient wishes to be a no code, no CPR, no intubation. CODE STATUS will be changed to no code and PCP will also discuss with significant other. T-max 99.5, WBC 5.2. Hemoglobin 7.3, no bleeding reported. Received Lasix IV push yesterday and again today with 24-hour I&O reflecting a negative fluid balance. 06/04/2020. Pt remained on BIPAP through the morning, O2 saturations and vitals documented stable. At 12:09, rapid response called as bedside nurse found pt not breathing. On examination by attending physician pt with no pulse or respirations. No code or CPR performed. Family and PCP notified. Plan - Discharge Summary Discharge Rx Participant: No New Discharge Prescriptions: No Action amLODIPine BESYLATE [Amlodipine Besylate] 10 mg PO DAILY Gabapentin 600 mg PO BID Ferrous Sulfate [Feosol] 325 mg PO DAILY Glimepiride [Amaryl] 1 mg PO DAILY Carvedilol [Coreg] 25 mg PO BID Dicyclomine [Bentyl] 20 mg PO TID PRN #20 tablet PRN Reason: abdominal pain Citalopram Hydrobromide [CeleXA] 40 mg PO DAILY levETIRAcetam [Keppra] 750 mg PO BID traMADol HCL 50 mg PO QID hydrALAZINE HCL [Apresoline] 50 mg PO TID #90 tab Aspirin 81 mg PO DAILY chew Tamsulosin [Flomax] 0.4 mg PO PC-BRKFST #30 cap.er.24h Furosemide [Lasix] 40 mg PO BID@0900,1600 #60 tab Atorvastatin [Lipitor] 40 mg PO DAILY #30 tab Famotidine [Pepcid] 20 mg PO DAILY tab Apixaban [Eliquis] 2.5 mg PO BID #60 tablet Losartan [Cozaar] 25 mg PO DAILY Lactobacillus Acidophilus [Acidophilus] 1 tab PO BID Ipratropium-Albuterol Nebulize [Duoneb 0.5 mg-3 mg/3 ml Soln] 3 ml INHALATION RT-QID Discharge Medication List amLODIPine BESYLATE [Amlodipine Besylate] 10 mg PO DAILY 10/26/15 [History] Gabapentin 600 mg PO BID 10/25/18 [History] Carvedilol [Coreg] 25 mg PO BID 01/26/20 [History] Ferrous Sulfate [Feosol] 325 mg PO DAILY 01/26/20 [History] Glimepiride [Amaryl] 1 mg PO DAILY 01/26/20 [History] Dicyclomine [Bentyl] 20 mg PO TID PRN #20 tablet 02/04/20 [Rx] Citalopram Hydrobromide [CeleXA] 40 mg PO DAILY 05/15/20 [History] levETIRAcetam [Keppra] 750 mg PO BID 05/15/20 [History] traMADol HCL 50 mg PO QID 05/15/20 [History] Apixaban [Eliquis] 2.5 mg PO BID #60 tablet 05/21/20 [Rx] Aspirin 81 mg PO DAILY chew 05/21/20 [Rx] Atorvastatin [Lipitor] 40 mg PO DAILY #30 tab 05/21/20 [Rx] Famotidine [Pepcid] 20 mg PO DAILY tab 05/21/20 [Rx] Furosemide [Lasix] 40 mg PO BID@0900,1600 #60 tab 05/21/20 [Rx] Tamsulosin [Flomax] 0.4 mg PO PC-BRKFST #30 cap.er.24h 05/21/20 [Rx] hydrALAZINE HCL [Apresoline] 50 mg PO TID #90 tab 05/21/20 [Rx] Ipratropium-Albuterol Nebulize [Duoneb 0.5 mg-3 mg/3 ml Soln] 3 ml INHALATION RT-QID 05/26/20 [History] Lactobacillus Acidophilus [Acidophilus] 1 tab PO BID 05/26/20 [History] Losartan [Cozaar] 25 mg PO DAILY 05/26/20 [History] Follow up Appointment(s)/Referral(s): Dane Chowdary MD [Primary Care Provider] - 1-2 days Obinna Eng MD [STAFF PHYSICIAN] - 2 Weeks Antony Peoples MD [STAFF PHYSICIAN] - 1 Week [facility], [NON-STAFF] - Discharge Disposition: - Preliminary Cause of Preliminary Cause of : [facility]
== END 2020-06-04 14:31 | disposition expired | DRG 682 ==
LOC: EC 04:44 → 3SCARD 06:15
PROVIDERS: ADMIT Family Medicine; ATTEND Family Medicine
PROC: 5A09557 Assistance with Respiratory Ventilation, Greater than 96 Consecutive Hours, Continuous Positive Airway Pressure (ICD-10-PCS; principal; 2020-05-26)
PROC: 5A0935A Assistance with Respiratory Ventilation, Less than 24 Consecutive Hours, High Flow/Velocity Cannula (ICD-10-PCS; 2020-06-03)
DX: N17.0 Acute kidney failure with tubular necrosis (principal); I50.33 Acute on chronic diastolic (congestive) heart failure; J96.01 Acute respiratory failure with hypoxia; G92 Toxic encephalopathy; I21.9 Acute myocardial infarction, unspecified; Z68.41 Body mass index [BMI] 40.0-44.9, adult; I13.0 Hypertensive heart and chronic kidney disease with heart failure and stage 1 through stage 4 chronic kidney disease, or unspecified chronic kidney disease; E87.1 Hypo-osmolality and hyponatremia; E87.2 Acidosis; J98.11 Atelectasis; K56.7 Ileus, unspecified; D63.1 Anemia in chronic kidney disease; G25.3 Myoclonus; I48.0 Paroxysmal atrial fibrillation; E11.22 Type 2 diabetes mellitus with diabetic chronic kidney disease; E11.42 Type 2 diabetes mellitus with diabetic polyneuropathy; E11.51 Type 2 diabetes mellitus with diabetic peripheral angiopathy without gangrene; N18.4 Chronic kidney disease, stage 4 (severe); J44.9 Chronic obstructive pulmonary disease, unspecified; G40.909 Epilepsy, unspecified, not intractable, without status epilepticus; Z66 Do not resuscitate; Z20.822 Contact with and (suspected) exposure to COVID-19; E66.9 Obesity, unspecified; T46.5X5A Adverse effect of other antihypertensive drugs, initial encounter; T42.6X5A Adverse effect of other antiepileptic and sedative-hypnotic drugs, initial encounter; T42.4X5A Adverse effect of benzodiazepines, initial encounter; E87.5 Hyperkalemia; E78.5 Hyperlipidemia, unspecified; E61.1 Iron deficiency; E86.1 Hypovolemia; R13.10 Dysphagia, unspecified; R47.81 Slurred speech; R00.1 Bradycardia, unspecified; G89.29 Other chronic pain; M54.5 Low back pain; I08.3 Combined rheumatic disorders of mitral, aortic and tricuspid valves; I25.10 Atherosclerotic heart disease of native coronary artery without angina pectoris; F32.9 Major depressive disorder, single episode, unspecified; F41.9 Anxiety disorder, unspecified; F12.10 Cannabis abuse, uncomplicated; G47.33 Obstructive sleep apnea (adult) (pediatric); K21.9 Gastro-esophageal reflux disease without esophagitis; M19.90 Unspecified osteoarthritis, unspecified site; M79.606 Pain in leg, unspecified; R53.81 Other malaise; Z79.01 Long term (current) use of anticoagulants; Z79.82 Long term (current) use of aspirin; Z79.84 Long term (current) use of oral hypoglycemic drugs; Z79.899 Other long term (current) drug therapy; Z87.891 Personal history of nicotine dependence; Z87.01 Personal history of pneumonia (recurrent); Z86.73 Personal history of transient ischemic attack (TIA), and cerebral infarction without residual deficits; Z86.79 Personal history of other diseases of the circulatory system; Z90.49 Acquired absence of other specified parts of digestive tract; Z95.5 Presence of coronary angioplasty implant and graft; Z87.19 Personal history of other diseases of the digestive system; Z87.39 Personal history of other diseases of the musculoskeletal system and connective tissue; Z90.89 Acquired absence of other organs; Z71.3 Dietary counseling and surveillance; Z98.890 Other specified postprocedural states; Z88.3 Allergy status to other anti-infective agents; Z81.1 Family history of alcohol abuse and dependence; Z80.0 Family history of malignant neoplasm of digestive organs
CPT/HCPCS: 36415; 36600; 71045; 74018; 74230; 80048; 80053; 80177; 82533; 82607; 82728; 82746; 82805; 83540; 83550; 83605; 83615; 83735; 83880; 83930; 83935; 84100; 84132; 84295; 84300; 84484; 85025; 85027; 85379; 85610; 85730; 86140; 87040; 87635; 93005; 93308; 94640; 94660; 94667; 94668; 94760; 96361; 96374; 96375; 96376; 99291